=== PATIENT | male | born 1950 | race Caucasian/White ===

== ENCOUNTER 2020-03-31 20:10 | Inpatient (IN) | payer MEDICARE, SELFPAY ==
[2020-03-31 20:25] VITALS: BP 114/65; PULSE 70; RESP 20; O2SAT 100; BMI 34.5
--- NOTE | 2020-03-31 20:30 | XR_ITS ---
WS: [id number] Portable AP upright chest, 03/31/2020 Clinical Data: dyspnea Comparison: None. Findings: No nodules, masses or effusions are seen. The heart is enlarged. The pulmonary vascularity is not increased. No pneumonia or pneumothorax is seen. Diaphragms are flattened. There is a permanen t pacemaker with epicardial leads and intracardiac leads. Midline sternotomy sutures are present. The pacemaker generator is in the left axilla. XR/XR chest 1V portable [id number] Impression: Cardiomegaly and hyperinflation.
[2020-03-31 20:37] VITALS: BP 111/67; PULSE 70; RESP 16; TEMP 36.6; O2SAT 100
[2020-03-31 20:54] LABS: Basophils # 0.1 10^3/uL (0.0-0.1); Basophils % 0.8 %; Eosinophils # 0.1 10^3/uL (0.0-0.8); Eosinophils % 1.1 %; Hematocrit 21.4 % (42.0-52.0); Lymphocytes # 1.1 10^3/uL (0.8-4.8); Lymphocytes % 17.3 %; Mean Corpuscular HGB Conc 26.2 g/dL (30.0-36.0); Mean Corpuscular Hemoglobin 20.8 pg (28.0-34.0); Mean Corpuscular Volume 79.6 fL (80-94); Mean Platelet Volume 11.3 fL (7.4-10.4); Monocytes # 0.8 10^3/uL (0.2-0.9); Monocytes % 12.8 %; Neutrophils # 4.2 10^3/uL (1.8-7.7); Neutrophils % 67.8 %; Nucleated Red Blood Cells % 0.6 %; Platelet Count 272 10^3/cmm (130-400); Red Blood Count 2.69 10^6/uL (4.1-5.3); Red Cell Distribution Width 18.8 % (12.1-15.1); White Blood Count 6.2 10^3/uL (4.0-10.0)
--- NOTE | 2020-03-31 20:55 | W.ED.GIBLEED ---
HPI - GI Bleed General: Chief complaint: GI Bleed Stated complaint: possible gi bleed Time Seen by Provider: 03/31/20 20:24 History of Present Illness: HPI Narrative: This patient is a 69-year-old gentleman presenting to the ED with anemia. He recently moved to the area and was establishing care with Dr. Londono today. He had labs done which showed a hemoglobin of 5.6. He was instructed to come to the ED for blood transfusion. Symptomatically he has been complaining of increasing shortness of breath and increasing leg swelling for months probably according to his family. This has become more and more severe to the point where he can barely walk across the room. He has a very extensive cardiac history including a 5 way bypass in the late s. 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 He has ischemic cardiomyopathy, CHF, A. fib. He has had strokes and carotid endarterectomies. He has never had anemia like this before but has had blood transfusions related to his other surgeries. He is on torsemide as a diuretic as well as apixaban and aspirin for anticoagulation. He has also had his gallbladder removed. He is a diabetic. He reports that he has had some constipation this week but did have a bowel movement today. The bowel movement today was streaked with some bright red blood. He has not noted any other blood loss such as in urine or nosebleeds complaint: other (Bright red blood mixed with stool) Associated symptoms: Reports nausea; Denies easy bruising, fever(s), headache(s) or rash Review of Systems General: Reports: 10 or more systems reviewed and unremarkable except in HPI and below Const: Reports: fatigue; Denies: fever(s) Eyes: Denies: change in vision ENMT: Denies: odynophagia Card: Denies: chest pain or swelling of feet/ankles Resp: Reports: dyspnea GI: Reports: nausea, constipation and hematochezia : Denies: flank pain Musc: Denies: neck pain or back pain Skin/Breast: Denies: rash Neuro: Denies: headache(s), numbness in extremities or weakness in extremities Jigar/Lymph: Denies: easy bruising or easy bleeding PFS ED PFSH: Medical History Atrial fibrillation Bilateral carotid artery stenosis CAD (coronary artery disease) CHF (congestive heart failure) CVA (cerebral vascular accident) Diabetes Endocarditis Hypertension ICD (implantable cardioverter-defibrillator) in place Ischemic cardiomyopathy TIA (transient ischemic attack) Type 2 diabetes mellitus Surgical History H/O carotid endarterectomy Hx of aortic valve replacement Hx of CABG Family History Other CAD (coronary artery disease) Cancer Chronic kidney disease (CKD) Diabetes Family history of premature coronary artery disease Hyperlipidemia Hypertension Stroke Social History Smoking and tobacco status: former smoker Alcohol intake: current Alcohol intake frequency: holidays/special occasions only Desire information about substance/drug rehabilitation?: No Physical Exam Const: COMMON NORMALS: no acute distress, patient oriented x3, no limitations and alert GENERAL APPEARANCE: cooperative and comfortable HENMT: HEAD & SCALP: normal to inspection FACE & SINUS: normal facial exam Eye: GENERAL EYE: appearance normal, both eyes and all related structures Neck/C-Spine: COMMON NORMALS: supple, no meningeal signs and no JVD Chest: COMMONS NORMALS: normal inspection of the chest Resp: EFFORT & INSPECTION: Yes able to speak in complete sentences (Barely), Yes tachypneic and Yes uses accessory muscles AUSCULTATION: diminished lung sounds Cardio: COMMON NORMALS: no JVD, regular rate, regular rhythm and No murmurs present (Cardio) RATE: regular rate RHYTHM: regular rhythm GI: COMMON NORMALS: Normal to inspection, nondistended, normoactive bowel sounds present, Soft to palpation and non-tender INSPECTION: Yes normal to inspection AUSCULTATION: Yes normoactive bowel sounds PALPATION: Yes Soft to palpation Back/Pelvis: COMMON NORMALS: thoracic and lumbar spine normal to inspection Extremity: COMMON NORMALS: no pedal edema Neuro: COMMON NORMALS: patient oriented x3, moves all extremities, no focal motor deficits and no sensory deficits noted SENSORIUM/ORIENTATION: Yes alert MENINGEAL SIGNS: Yes no meningeal signs Psych: COMMON NORMALS: mental status grossly normal, cooperative and normal affect Skin: COMMON NORMALS: no rashes or lesions noted and turgor normal NARRATIVE SKIN EXAM: Sallow skin tone GENERAL SKIN EXAM: no rashes or lesions noted and turgor normal Course Consultations: Consultation #1: Dr. Reyes will admit for blood transfusion and further evaluation and monitoring Vital Signs: Vital signs: Vital Signs Temperature 97.9 F 03/31/20 20:37 Pulse Rate 87 03/31/20 22:12 Respiratory Rate 18 03/31/20 22:12 Blood Pressure 101/45 03/31/20 22:12 Pulse Oximetry 98 03/31/20 22:12 MDM - GI Bleed MDM Narrative: Medical decision making narrative: Complicated patient with an extensive medical history. Labs done today showed severe anemia which is even more concerning with his cardiac history. He is quite symptomatic with this. He also has some heart failure and some renal insufficiency. He will require transfusions and close monitoring of his volume status. Lab Data: Labs: Lab Results 03/31/20 03/31/20 03/31/20 Range/Units 20:45 20:45 20:45 WBC 6.2 (4.0-10.0) 10^3/ uL RBC 2.69 L (4.1-5.3) 10^6/u L Hgb 5.6 L* (11.7-16.6) g/dL Hct 21.4 L (42.0-52.0) % MCV 79.6 L (80-94) fL MCH 20.8 L (28.0-34.0) pg MCHC 26.2 L (30.0-36.0) g/dL RDW 18.8 H (12.1-15.1) % Plt Count 272 (130-400) 10^3/c mm MPV 11.3 H (7.4-10.4) fL Neut % (Auto) 67.8 % Lymph % (Auto) 17.3 % Linn % (Auto) 12.8 % Eos % (Auto) 1.1 % Baso % (Auto) 0.8 % Neut # (Auto) 4.2 (1.8-7.7) 10^3/u L Lymph # (Auto) 1.1 (0.8-4.8) 10^3/u L Linn # (Auto) 0.8 (0.2-0.9) 10^3/u L Eos # (Auto) 0.1 (0.0-0.8) 10^3/u L Baso # (Auto) 0.1 (0.0-0.1) 10^3/u L Nucleated RBC % (a uto) 0.6 % Nucleated RBCs # 0.0 /100WBC PT (10.5-13.3) SECO NDS INR (0.8-1.2) APTT (23.9-36.7) SECO NDS Sodium 134 L (136-145) mmol/L Potassium 4.5 (3.5-5.1) mmol/L Chloride 98 (98-107) mmol/L Carbon Dioxide 22 (22-29) mmol/L Anion Gap 18.5 (5-19) BUN 36 H (8-23) mg/dL Creatinine 1.9 H (0.7-1.2) mg/dL GFR Calculation 35.5 L (90-130) mL/min Glucose 165 H (65-115) mg/dL Calculated Osmolal ity 279 L (285-295) mOsm/k g Lactate 2.5 H (0.5-2.2) mmol/L Calcium 9.1 (8.5-10.5) mg/dL Total Bilirubin 0.7 (0.15-1.2) mg/dL AST 44 H (0-40) U/L ALT 50 H (0-41) U/L Alkaline Phosphata se 122 (40-130) IU/L Troponin T Baselin e (0-15) ng/L NT-Pro-B Natriuret Pep 4609 H (0-125) pg/mL Total Protein 7.0 (6.6-8.7) g/dL Albumin 4.2 (3.5-5.2) g/dL Globulin 2.8 (1.3-4.6) g/dL Lipase 83 H (13-60) U/L Blood Type Rho(D) Type Antibody Screen Crossmatch 03/31/20 03/31/20 03/31/20 Range/Units 20:45 20:45 20:45 WBC (4.0-10.0) 10^3/ uL RBC (4.1-5.3) 10^6/u L Hgb (11.7-16.6) g/dL Hct (42.0-52.0) % MCV (80-94) fL MCH (28.0-34.0) pg MCHC (30.0-36.0) g/dL RDW (12.1-15.1) % Plt Count (130-400) 10^3/c mm MPV (7.4-10.4) fL Neut % (Auto) % Lymph % (Auto) % Linn % (Auto) % Eos % (Auto) % Baso % (Auto) % Neut # (Auto) (1.8-7.7) 10^3/u L Lymph # (Auto) (0.8-4.8) 10^3/u L Linn # (Auto) (0.2-0.9) 10^3/u L Eos # (Auto) (0.0-0.8) 10^3/u L Baso # (Auto) (0.0-0.1) 10^3/u L Nucleated RBC % (a uto) % Nucleated RBCs # /100WBC PT 23.80 H (10.5-13.3) SECO NDS INR 2.10 H (0.8-1.2) APTT 51.3 H (23.9-36.7) SECO NDS Sodium (136-145) mmol/L Potassium (3.5-5.1) mmol/L Chloride (98-107) mmol/L Carbon Dioxide (22-29) mmol/L Anion Gap (5-19) BUN (8-23) mg/dL Creatinine (0.7-1.2) mg/dL GFR Calculation (90-130) mL/min Glucose (65-115) mg/dL Calculated Osmolal ity (285-295) mOsm/k g Lactate (0.5-2.2) mmol/L Calcium (8.5-10.5) mg/dL Total Bilirubin (0.15-1.2) mg/dL AST (0-40) U/L ALT (0-41) U/L Alkaline Phosphata se (40-130) IU/L Troponin T Baselin e 46 H (0-15) ng/L NT-Pro-B Natriuret Pep (0-125) pg/mL Total Protein (6.6-8.7) g/dL Albumin (3.5-5.2) g/dL Globulin (1.3-4.6) g/dL Lipase (13-60) U/L Blood Type A Negative Rho(D) Type Negative Antibody Screen Negative Crossmatch See Detail EKG Data^: EKG 1: EKG interpretation date: 03/31/20 EKG interpretation time: 21:12 Interpretation: Ventricular rate of 69, ventricular paced. No P waves. Wide-complex consistent with ventricular pacing Discharge Plan Discharge Patient Disposition: Admitted As Inpatient Admit Provider: Dereje Reyes Clinical Impression: Severe anemia, Acute dyspnea Condition: Stable Discharge Date/Time: 03/31/20 22:18 Coding Level of Care Code ED Supervisor [employer] Workers for Chg Fwd Exam Comprehensive
[2020-03-31 21:08] LABS: Lactate (Lactic Acid level) 2.5 mmol/L (0.5-2.2)
[2020-03-31 21:11] LABS: Troponin(5th) Baseline 46 ng/L (0-15)
[2020-03-31 21:19] LABS: Alanine Aminotransferase 50 U/L (0-41); Albumin Level 4.2 g/dL (3.5-5.2); Alkaline Phosphatase 122 IU/L (40-130); Anion Gap 18.5 (5-19); Aspartate Amino Transferase 44 U/L (0-40); Blood Urea Nitrogen 36 mg/dL (8-23); Calcium 9.1 mg/dL (8.5-10.5); Carbon Dioxide 22 mmol/L (22-29); Chloride 98 mmol/L (98-107); Globulin 2.8 g/dL (1.3-4.6); Glomerular Filtration Rate 35.5 mL/min (90-130); Glucose 165 mg/dL (65-115); Lipase 83 U/L (13-60); NT Pro B Type Natriuretic Pept 4609 pg/mL (0-125); Osmolality Calculated 279 mOsm/kg (285-295); Potassium 4.5 mmol/L (3.5-5.1); Sodium 134 mmol/L (136-145); Total Bilirubin 0.7 mg/dL (0.15-1.2)
--- NOTE | 2020-03-31 21:38 | CTR_ITS ---
PROCEDURE INFORMATION: Exam: CT Abdomen And Pelvis Without Contrast Exam date and time: 03/31/2020 10:17 PM Age: 69 years old Clinical indication: Abdominal pain; Prior surgery; Surgery type: Gb, cabg, valve, RT hip; Additional info: Concern for colitis TECHNIQUE: Imaging protocol: Computed tomography of the abdomen and pelvis without contrast. Radiation optimization: All CT scans at this facility use at least one of these dose optimization techniques: automated exposure control; mA and/or kV adjustment per patient size (includes targeted exams where dose is matched to clinical indication); or iterative reconstruction. COMPARISON: No relevant prior studies available. RADIATION DOSE METRICS: Total DLP: 1739.38 mGy-cm FINDINGS: Lungs: Bibasilar atelectasis Pleural space: Moderate bilateral pleural effusions. Liver: Normal. No mass. Gallbladder and bile ducts: Normal. No calcified stones. No ductal dilation. Pancreas: Normal. No ductal dilation. Spleen: Normal. No splenomegaly. Adrenals: Normal. No mass. Kidneys and ureters: Normal. No hydronephrosis. Stomach and bowel: Diverticulosis without diverticulitis. Appendix: No evidence of appendicitis. Intraperitoneal space: Unremarkable. No free air. No significant fluid collection. Vasculature: Unremarkable. No abdominal aortic aneurysm. Lymph nodes: Unremarkable. No enlarged lymph nodes. Bladder: Unremarkable as visualized. Reproductive: Unremarkable as visualized. Bones/joints: Sternotomy wires. Soft tissues: Unremarkable. CT/CT abdomen pelvis wo con [id number] IMPRESSION: 1. Negative for acute inflammatory process 2. Moderate bilateral pleural effusions. 3. Bibasilar atelectasis 4. Sternotomy wires. 5. Diverticulosis without diverticulitis. Radiation Dose CTDIVOL = (mGy): DLP = 1739.38 (mGy-cm)
--- NOTE | 2020-03-31 21:45 | PM.HP ---
Providers/Chief Complaint Chief Complaint: possible gi bleed History of Present Illness Abhay Varghese is a 69 year old male with complex cardiac history with A. 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 Patient has established care with Dr. Londono after moving to [place] from [facility]. He has seen Dr. Londono for worsening shortness of breath, he was asked to increase his torsemide for 40 mg twice a day to 100 mg once a day. Patient is stating that he has been experiencing orthopnea, PND shortness of breath on mild exertion, he gets winded very easily is walking from one room to another. He has been leading a sedentary lifestyle. At baseline he has been experiencing constipation, for last 1 to 2 months he has been experiencing bright bleed per rectum as well, he has not notified any physician and kept taking his Eliquis and aspirin. Today when Dr. Londono's clinic fam labs it showed hemoglobin of 5.6 and asked him to come to the ED for further evaluation. Patient is stating that almost with every bowel movement he has been noticing bright bleed per rectum, his previous colonoscopy revealed some polyps without any diverticulosis or hemorrhoids. Diagnostics in the ER revealed hemoglobin 5.6 microcytic, Hemodynamically stable Coagulopathy VEE Lactic 2.[address] abdomen obtained to rule out colitis, it revealed diverticulosis, bilateral pleural effusion Review of Systems Const: Reports: chills, body aches, change in appetite and fatigue; Denies: fever(s) Eyes: Denies: change in vision ENMT: Denies: throat pain Card: Reports: swelling of feet/ankles, dyspnea on exertion and orthopnea; Denies: chest pain Resp: Reports: dyspnea GI: Reports: abdominal pain and nausea; Denies: vomiting : Denies: flank pain Musc: Denies: neck pain Skin/Breast: Reports: new lesions (Multiple precancerous lesion around his forehead, nasolabial fold, nose) and lesions Neuro: Denies: headache(s) Psych: Denies: anxiety Endo: Denies: polyuria Jigar/Lymph: Denies: easy bruising All/Imm: Denies: urticaria Medications/Allergies Home Medications Medication Instructions Recorded Confirmed Last Taken Type apixaban 5 mg tablet 5 mg PO BID 03/31/20 03/31/20 03/31/20 History aspirin 81 mg tablet,delayed 81 mg PO DAILY 03/31/20 03/31/20 03/31/20 History release carvedilol 12.5 mg tablet 12.5 mg PO BID 03/31/20 03/31/20 03/31/20 History duloxetine 30 mg capsule,delayed 60 mg PO DAILY cap 03/31/20 03/31/20 03/31/20 History release empagliflozin 10 mg tablet 10 mg PO DAILY 30 Days #30 tab 03/31/20 03/31/20 Unknown Rx escitalopram oxalate 10 mg PO DAILY 03/31/20 03/31/20 03/31/20 History metformin 1,000 mg tablet 1,000 mg PO BID 03/31/20 03/31/20 03/31/20 History pantoprazole 40 mg tablet,delayed 40 mg PO DAILY 03/31/20 03/31/20 03/31/20 History release rosuvastatin 20 mg tablet 20 mg PO DAILY 03/31/20 03/31/20 03/31/20 History sacubitril 24 mg-valsartan 26 mg 1 tab PO BID 03/31/20 03/31/20 03/31/20 History tablet torsemide 100 mg tablet 100 mg PO DAILY #90 tab 03/31/20 03/31/20 03/31/20 Rx tramadol 37.5 mg-acetaminophen 325 1 tab PO BID PRN 03/31/20 03/31/20 03/31/20 History mg tablet Allergies Allergy/AdvReac Type Severity Reaction Status Date / Time No Known Allergies Allergy Unverified 03/31/20 14:13 PFSH Acute PFSH: Medical History Atrial fibrillation Bilateral carotid artery stenosis CAD (coronary artery disease) CHF (congestive heart failure) CVA (cerebral vascular accident) Diabetes Endocarditis Hypertension ICD (implantable cardioverter-defibrillator) in place Ischemic cardiomyopathy TIA (transient ischemic attack) Type 2 diabetes mellitus Surgical History H/O carotid endarterectomy Hx of aortic valve replacement Hx of CABG Family History Other CAD (coronary artery disease) Cancer Chronic kidney disease (CKD) Diabetes Family history of premature coronary artery disease Hyperlipidemia Hypertension Stroke Social History (Updated 04/01/20 @ 00:22 by Dereje Reyes MD) Smoking and tobacco status: former smoker Alcohol intake: current Alcohol intake frequency: holidays/special occasions only Desire information about substance/drug rehabilitation?: No Housing: House Vitals/I&O/Wt Last Vital Signs Temp 97.9 F 03/31/20 20:37 Pulse 70 03/31/20 20:37 Resp 16 03/31/20 20:37 BP 111/67 03/31/20 20:37 Pulse Ox 100 03/31/20 20:37 Weight last 48 hrs Weight 118.841 kg Physical Exam Narrative: EXAM NARRATIVE: Head to toe examination Elderly male wearing facemask lying comfortable in his bed Saturating well on room Patient has multiple precancerous lesion on his forehead, nose and sun exposed areas No active distress S1, S2 variable Signs of heart failure present Bilateral breath sounds without adventitious sounds diminished breath sounds at the bases Abdomen soft, distended, nontender, bowel sound present, visceral obesity Neurologically nonfocal Lower extremity no signs of edema gangrene ulcer Appropriate mood and affect EOMI, PERRLA Multiple macular rash on his trunk Data : 03/31/20 20:45 03/31/20 20:45 A&P Assessment and plan (1) Severe anemia: Bright bleed per rectum mostly after bowel movements, chronic history of constipation, CT abdomen revealed diverticulosis Hemodynamically stable Blood transfusion I believe etiology is diverticular bleed Would hold Eliquis and aspirin for now, patient is very anxious about holding anticoagulation because of his cardiac history, he does not want to get any scopes during this visit and would like to schedule it electively He is stating that his previous colonoscopy revealed some polyps but no hemorrhoids or malignant lesions identified If he is bleeding profusely recommendations are to stop anticoagulation for at least 3 to 4 weeks but with diverticular bleed if his hemoglobin stays stable we might be able to start anticoagulation earlier Status: Acute (2) Diverticula of colon: CT abdomen reveals diverticular colon which is most likely the source of bleeding No signs of diverticulitis Would use laxative for his chronic constipation and check TSH No signs of ischemic colitis, high lactic acid is secondary to hypo-volemia due to anemia Status: Acute (3) Acute dyspnea: Due to anemia with underlying CHF Anticipating improvement after blood transfusion and use of Lasix Status: Acute (4) CHF exacerbation: I believe CHF exacerbation is due to anemia Target hemoglobin is 8 for him due to cardiac history Would use Lasix in between blood transfusions I would continue his torsemide 100 mg a day Status: Acute (5) Acute kidney injury: Secondary to CHF exacerbation Anticipating improvement with diuresis He is not hypotensive I would hold his Entresto for now along metformin In my opinion he should not be on metformin that he has risk of worsening chronic kidney disease Status: Acute (6) Microcytic anemia: We will check iron study Status: Acute Additional A&P Information DVT prophylaxis: SCDs, holding Eliquis and aspirin which she has been using for A. fib and severe coronary disease 3 open heart surgeries, CABG 5 vessel, aortic valve replaced, AICD: No active chest pain, EKG showing paced rhythm, delta troponin not significant which I think is due to acute kidney injury N.p.o. Left vertebral artery CVA history no active residual weakness Patient does not want any investigational endoscopies during the stay and would like to schedule it electively, anticoagulation and aspirin on hold, we might need to discuss his case with Dr. Londono for close follow-up and reinitiating anticoagulation at the right time. Would give him bowel regimen to avoid recurrent constipation. Attestations Medical Necessity Statement*: Anticipating discharge in less than 48 hours currently needs blood transfusion for severe anemia causing CHF exacerbation Time Spent in Patient Care: (>than 50% of time spent in counselling and/or direct pt care on unit). 60mins Coding Level of Care Code Acute Corrections Caseworker for Chg Fwd Diagnoses Severe anemia D64.9 Diverticula of colon K57.30 Acute dyspnea R06.00 CHF exacerbation I50.9 Acute kidney injury N17.9 Microcytic anemia D50.9
[2020-03-31 22:11] LABS: Partial Thromboplastin Time 51.3 SECONDS (23.9-36.7)
[2020-03-31 22:12] VITALS: BP 101/45; PULSE 87; RESP 18; O2SAT 98
[2020-03-31 22:12] LABS: Hemoglobin 5.6 g/dL (11.7-16.6)
[2020-03-31 22:30] VITALS: BP 113/54; PULSE 71; RESP 18; TEMP 36.6; O2SAT 100
--- NOTE | 2020-03-31 22:30 | ECG_ITS ---
Measurements Intervals Gap Rate: 69 P: VT: 0 QRS: 164 QRSD: 150 T: -29 QT: 447 QTc: 482 ELECTRONIC VENTRICULAR PACEMAKER ABNORMAL RHYTHM ECG No previous ECG available for comparison Electronically Signed On 04-01-2020 7:01:24 CDT by Hayder Karimi M.D. [email or web address]
[2020-03-31 22:54] LABS: Troponin 5 2HR 47.04 ng/L (0-15); Troponin 5 2HR Delta 1.04 ABS# (0-10)
[2020-03-31 23:44] LABS: Add Urine Microscopic? NO
[2020-03-31 23:55] LABS: Bilirubin Urine Neg (NEGATIVE); Blood Urine Neg (Negative); Glucose Urine UA Norm (Normal); Ketones Urine Negative (Negative); Leukocyte Esterase Urine Negative (Negative); Nitrate Urine Negative (Negative); Protein Urine Neg (Negative); Urine Appearance Clear (CLEAR); Urine Color Yellow (Yellow); Urobilinogen Urine Norm (Negative); pH Urine 5 (5-7)
[2020-04-01] VITALS (19 sets, daily range): BP systolic 107–143; BP diastolic 57–87; PULSE 69–104; RESP 9–25; TEMP 35.7–36.9; O2SAT 93–99
[2020-04-01] MEDS: sodium chloride 0.9% (100 ml) 100 ML 50 ML (00:47)
[2020-04-01 02:27] LABS: Ferritin 8 ng/mL (30-400); Iron 14 ug/dL (59-158)
--- NOTE | 2020-04-01 02:30 | ECG_ITS ---
Measurements Intervals [place] Rate: 69 P: -42 LA: 142 QRS: 172 QRSD: 153 T: -15 QT: 441 QTc: 476 ELECTRONIC VENTRICULAR PACEMAKER ABNORMAL RHYTHM ECG No previous ECG available for comparison Electronically Signed On 04-01-2020 7:02:59 CDT by Hayder Karimi M.D. [email or web address]
[2020-04-01 03:06] LABS: Anion Gap 18.8 (5-19); Blood Urea Nitrogen 32 mg/dL (8-23); Calcium 9.9 mg/dL (8.5-10.5); Carbon Dioxide 22 mmol/L (22-29); Chloride 100 mmol/L (98-107); Glomerular Filtration Rate 35.5 mL/min (90-130); Glucose 149 mg/dL (65-115); Osmolality Calculated 282 mOsm/kg (285-295); Potassium 4.8 mmol/L (3.5-5.1); Sodium 136 mmol/L (136-145); Troponin 5 6HR 46.38 ng/L (0-15); Troponin 5 6HR Delta 0.38 ng/L (0-12)
[2020-04-01 03:07] LABS: Lactic Acid level (Lactate) 1.5 mmol/L (0.5-2.2)
[2020-04-01] MEDS: FUROsemide 10 mg/mL SDV 4mL 20 MG IVP (04:42)
--- NOTE | 2020-04-01 09:19 | USCV_ITS ---
Abhay Varghese Age: 69 Gender: M : 1950 Exam Date: 04/01/2020 14:45 Ordering Phys: Marlys Castellanos MD Technologist: Vivian Sears [place] [facility] [place] Indication: AVR BP: 137 / 78 HR: 76 Rhythm: Sinus Technical Quality: Adequate MEASUREMENTS (Male / Female) Normal Values 2D ECHO LV Diastolic Diameter PLAX 6.3 cm 4.2 - 5.9 / 3.9 - 5.3 cm LV Systolic Diameter PLAX 5.4 cm LV Chamber Size 3.4 cm IVS Diastolic Thickness 1.4 cm 0.6 - 1.0 / 0.6 - 0.9 cm IVS Systolic Thickness 1.6 cm LVPW Diastolic Thickness 1.9 cm 0.6 - 1.0 / 0.6 - 0.9 cm LVPW Systolic Thickness 1.7 cm RV Chamber Size 4.6 cm LVOT Diameter 2.0 cm LV Ejection Fraction 2D Teich 29.1 % LV Ejection Fraction MOD 2C 35.7 % LV Ejection Fraction 2C AL 36.5 % LA Diameter 4.8 cm LA Width 4.3 cm LA Height 5.8 cm RA Width 5.0 cm RA Height 5.0 cm Aorta at Sinotubular Diameter 2.7 cm M-MODE LV Diastolic Diameter MM 8.0 cm 4.2 - 5.9 / 3.9 - 5.3 cm LV Systolic Diameter MM 7.2 cm LV Ejection Fraction MM Teich 22.4 % IVS Diastolic Thickness MM 0.7 cm 0.6 - 1.0 / 0.6 - 0.9 cm IVS Systolic Thickness MM 0.7 cm LVPW Diastolic Thickness MM 0.9 cm 0.6 - 1.0 / 0.6 - 0.9 cm LVPW Systolic Thickness MM 1.1 cm Aortic Annulus Diameter 3.5 cm LA Ao Ratio MM 1.4 MV E Point Septal Separation 1.5 cm DOPPLER AV Peak Velocity 104.0 cm/s LVOT Peak Velocity 90.0 cm/s AV Area Cont Eq vti 4.0 cm squared AV Area Cont Eq pk 2.8 cm squared MV Area PHT 5.1 cm squared Mitral E to A Ratio 6.1 MV E' Velocity 9.0 cm/s Mitral E to MV E' Ratio 18.1 Mitral E to LV E' Lateral Ratio 14.2 Mitral E to LV E' Septal Ratio 25.3 TR Peak Velocity 328.5 cm/s TR Peak Gradient 14.5 mmHg TR Mean Velocity 212.1 cm/s TR Mean Gradient 21.3 mmHg TR Velocity Time Integral 103.4 cm TV Peak E Velocity 80.0 cm/s Right Atrial Pressure 3.0 mmHg Pulmonary Artery Systolic Pressu 46.2 mmHg PV Peak Velocity 72.0 cm/s RV Acceleration Time 0.1 s RV Ejection Time 0.3 s RV AcT/ET 0.2 FINDINGS Left Ventricle Midly dilated left ventricle with diminished ejection fraction of 30 to 35%. Diffuse hypokinesia of the left ventricle. Right Ventricle Mildly increased right ventricular size. Mildly decreased right ventricular systolic function. Pacemaker/ICD wire in the right ventricle Right Atrium Mildly increased right atrial size. Pacemaker wires in the right atrium Left Atrium Mildly increased left atrial size. Mitral Valve Mild mitral valve regurgitation. Aortic Valve Trace aortic valve regurgitation. Tricuspid Valve Trace tricuspid valve regurgitation. Estimated pulmonary artery peak systolic pressure of 46 mmHg Pulmonic Valve Not visualized well Pericardium Dilated inferior vena cava with a diameter of 2.7 cm Aorta Normal aortic annulus size. CONCLUSIONS Dilated left ventricle with diminished ejection fraction of 30 to 35%. Diffuse hypokinesia of the left ventricle. Mildly increased right ventricular size. Mildly decreased right ventricular systolic function. Pacemaker/ICD wire in the right ventricle. Mild biatrial enlargement Mild mitral with trace of aortic and tricuspid regurgitation Mild pulmonary hypertension with an estimated pulmonary artery peak systolic pressure of 46 mmHg ICD/pacemaker wire in the right atrium and right ventricle No significant pericardial effusion. No similar previous studies are available for comparison Dr Sascha Londono MD [facility] (Electronically Signed) Final Date: 01 April 2020 18:10 S
[2020-04-01 09:35] LABS: Basophils # 0.1 10^3/uL (0.0-0.1); Basophils % 1.2 %; Eosinophils # 0.1 10^3/uL (0.0-0.8); Eosinophils % 1.5 %; Hematocrit 23.8 % (42.0-52.0); Lymphocytes # 0.8 10^3/uL (0.8-4.8); Lymphocytes % 13.8 %; Mean Corpuscular HGB Conc 28.2 g/dL (30.0-36.0); Mean Corpuscular Hemoglobin 22.6 pg (28.0-34.0); Mean Corpuscular Volume 80.4 fL (80-94); Mean Platelet Volume 11.1 fL (7.4-10.4); Monocytes # 0.7 10^3/uL (0.2-0.9); Monocytes % 11.7 %; Neutrophils # 4.4 10^3/uL (1.8-7.7); Neutrophils % 71.6 %; Nucleated Red Blood Cells % 0.5 %; Platelet Count 247 10^3/cmm (130-400); Red Blood Count 2.96 10^6/uL (4.1-5.3); Red Cell Distribution Width 19.2 % (12.1-15.1); White Blood Count 6.1 10^3/uL (4.0-10.0)
--- NOTE | 2020-04-01 09:37 | PC.CHAP ---
Pastoral Care Encounter/Spiritual Assessment Type of Contact [] Declined machine bunch maker visit [] Patient/Family/Request visit [] Outpatient visit [] Follow-up visit [] Physician referral [] Code/Alert [x] Routine visit [] Staff referral [] Actively dying [] Patient sleeping [] Family support [] [] Out of room [] Palliative care [] [] Receiving care in room [] Pre-surgical visit [] Trauma [] Long length of stay [] ICU visit [] Other: Relational/Emotional Strength [] Patient feels connected with others/family/visitors/staff [] Distress [] Loneliness/isolation [] Abandonment Spirituality of Patient [] Person of Maggy [] Attends Amish of their Maggy [] Believes in Prayer [] Reads Bible or Yazdanism materials [] There are Spiritual issues to be addressed Scholarship Counselor Interventions [x] Prayer [] Active listening [] Non-anxious presence [] Spiritual/emotional support [] Crisis/trauma care [] Spiritual counseling [] Bereavement support [] Provided bereavement packet [] Provided Bible/devotional materials [] Provided toy/stuffed animal, coloring book to patient or family member [] Provided Communion [] Anointing/[place] [] Salvation [x] Completed spiritual assessment [] Other: Impact on Illness or Injury [] Angry [] Fearful [] Anxious [] Often cries [] Exhaustion [] Unable to work [] Unable to attend buddhist [] Unable to walk/stand [] Unable to read [] Unable to drive [] Unable to eat/drink [] Unable to sleep [] Unable to be with family [] Patient intubated [] Other: Summary Patient resting well. Time spent with patient 5 min
[2020-04-01 09:58] LABS: Hemoglobin 6.7 g/dL (11.7-16.6)
[2020-04-01] MEDS: duloxetine 30 mg Capsule 60 MG PO (10:00)
[2020-04-01] MEDS: carvedilol 12.5 mg Tablet PO ×2 (10:00→17:42)
[2020-04-01] MEDS: TORSEmide 20 mg Tablet 100 MG PO (10:00)
[2020-04-01] MEDS: atorvastatin 40 mg Tablet 80 MG PO (10:00)
[2020-04-01] MEDS: pantoprazole 40 mg SDV IVP ×2 (10:01→17:48)
--- NOTE | 2020-04-01 10:08 | PC.NURSE ---
medication rounding delayed due to patient cares
--- NOTE | 2020-04-01 10:17 | PM.PN ---
Subjective Subjective: Interval history: Patient seen after second unit of blood. Hemoglobin is up to 6.7. Renal function is about the same. He is not sure what his baseline renal function is. He is starting to feel a little bit better in the last 30 minutes or so. Not quite as short of breath. He has had Lasix after each unit of blood. Swelling is down a little bit in his lower extremities. He has not had any blood transfusions since he had his heart surgery a few years ago. Cannot recall when he last had any blood work checked or if he has chronic anemia. Iron is low consistent with iron deficiency. Recent bowel movement this morning with no blood noted by his report. Echo has been ordered. I discussed the case with Dr. Londono who is agreed to see him in consultation. Vitals/I&O/Wt Last Vital Signs Temp 97.9 F 04/01/20 07:53 Pulse 71 04/01/20 07:53 Resp 15 04/01/20 07:53 BP 130/69 04/01/20 07:53 Pulse Ox 96 04/01/20 07:53 03/31/20 04/01/20 04/01/20 22:59 06:59 14:59 Intake Total 500 / 500 810 / 810 Output Total 650 / 650 Balance -150 / -150 810 / 810 Weight last 48 hrs Weight 118.841 kg Physical Exam Const: OTHER: Alert, oriented x3, cooperative HENMT: OTHER: Normocephalic atraumatic, pale mucosa Eye: OTHER: Pupils equally round and reactive to light Neck/C-Spine: OTHER: Supple Resp: OTHER: No rales or wheezes noted presently. Patient does have some tachypnea and has to pause at times while talking Cardio: OTHER: Regular GI: OTHER: Abdomen soft, nontender : OTHER: Deferred Extremity: NARRATIVE EXTREMITY EXAM: 2+ edema Neuro: OTHER: Face symmetric, speech clear, moves all extremities Psych: OTHER: Normal affect Skin: OTHER: Chronic stasis changes Data : 04/01/20 17:35 04/01/20 02:35 A&P Assessment and plan (1) Severe anemia: Symptomatic, iron deficiency with reported intermittent GI losses with bright red blood. I suspect he has had a slow drop in his hemoglobin and that there is a chronic component to this in addition to possible acute process. Whether that is from chronic disease, GI losses or other process unclear at this point in time. Concerning factors that he is on chronic anticoagulation. Has already received 2 units of blood with hemoglobin up to 6.7. Status: Acute (2) Diverticula of colon: Suspected diverticular bleed at admission for ongoing bright red blood per rectum on the floor thus far Status: Acute (3) Chronic anticoagulation: With Eliquis which is now held Status: Acute (4) Acute kidney injury: Versus chronic kidney disease. Baseline renal function is unknown. Status: Acute (5) CHF (congestive heart failure): Ejection fraction around 30%. He is normally on Entresto which is been held due to renal function presently. Chronically managed with torsemide. Status: Acute Qualifiers: Heart failure chronicity: chronic Heart failure type: systolic Qualified Code(s): I50.22 - Chronic systolic (congestive) heart failure (6) CAD (coronary artery disease): With prior bypass surgery. Chronically on aspirin, carvedilol and statin Status: Acute Qualifiers: Associated angina: without angina Coronary Disease-Associated Artery/Lesion type: [place] artery [place] vs. transplanted heart: [place] heart Qualified Code(s): I25.10 - Atherosclerotic heart disease of [place] coronary artery without angina pectoris (7) Type 2 diabetes mellitus: Chronically on metformin and was started on Jardiance I believe recently. A1c 6.30 March 2020 Status: Acute Qualifiers: Diabetes mellitus complication status: with hyperglycemia Diabetes mellitus termite inspector insulin use: with termite inspector use Qualified Code(s): E11.65 - Type 2 diabetes mellitus with hyperglycemia; Z79.4 - shelter (current) use of insulin (8) Hx of aortic valve replacement: With aortic root replacement. Suspected to be bioprosthetic but not confirmed at this point in time. Status: Acute (9) Atrial fibrillation: Chronic Status: Acute Qualifiers: Atrial fibrillation type: permanent Qualified Code(s): I48.21 - Permanent atrial fibrillation (10) CVA (cerebral vascular accident): Around the time of 1 of his prior heart surgeries. Has had carotid endarterectomy. Previously involved left MCA. Minor residual visual field changes. Patient is fearful of having another stroke, especially if he has to come off of anticoagulation. Status: Acute Qualifiers: CVA mechanism: embolism Laterality of affected vessel: right Precerebral and cerebral artery: middle cerebral artery Qualified Code(s): I63.411 - Cerebral infarction due to embolism of right middle cerebral artery (11) Hypertension: Presently controlled Status: Acute Qualifiers: Hypertension type: unspecified Qualified Code(s): I10 - Essential (primary) hypertension (12) Dyslipidemia: Chronically on statin Status: Acute Additional A&P Information Mild transaminase elevation Mild lipase elevation Elevated troponin at baseline without significant delta Normal TSH Transfuse an additional unit of blood Continue Lasix after each unit of blood I have asked Dr. Londono to consult to assist with anticoagulation question as well as chronic cardiac medications. In light of renal function need to make decision about Entresto. Will request more recent old records to see if we get an idea, Dr. Londono may have these. Was able to find records from 2018 that showed a hemoglobin of 7.9 after transfusion and BUN and creatinine around 15/1.0. This was around time of last surgery however. Add sliding scale insulin for diabetes coverage in the interim Regular diet We will need consideration for endoscopy at some point in time but does not wish to pursue presently PPI Discussed with patient holding anticoagulation. He is very fearful of having a stroke which is understandable. He has been taking regularly for some time. Echocardiogram has been ordered Monitor renal function and clinical response to treatment Telemetry monitoring Other home medications as ordered Will contact Maria R who can be reached at [phone] and update her on situation. She is in [place]. Supportive care otherwise Attestations Medical Necessity Statement*: Patient stable now crossed 2 midnights. I have changed him to inpatient status. He did not come up as much as expected after 2 units of blood despite having diuresis. Several medications are also held due to renal function. We do not have records of prior renal function was. Requires close monitoring to ensure stability prior to disposition home. Coding Level of Care Code Acute Frame Aligner for [facility] Fwd Diagnoses Severe anemia D64.9 Diverticula of colon K57.30 Chronic anticoagulation Z79.01 Acute kidney injury N17.9 CHF (congestive heart failure) I50.22 Heart failure chronicity: chronic Heart failure type: systolic CAD (coronary artery disease) I25.10 Associated angina: without angina Coronary Disease-Associated Artery/Lesion type: [place] artery [place] vs. transplanted heart: [place] heart Type 2 diabetes mellitus E11.65; Z79.4 Diabetes mellitus complication status: with hyperglycemia Diabetes mellitus termite inspector insulin use: with termite inspector use Hx of aortic valve replacement Z95.2 Atrial fibrillation I48.21 Atrial fibrillation type: permanent CVA (cerebral vascular accident) I63.411 CVA mechanism: embolism Laterality of affected vessel: right Precerebral and cerebral artery: middle cerebral artery Hypertension I10 Hypertension type: unspecified Dyslipidemia E78.5
[2020-04-01 11:21] LABS: Glucose Point of Care 208 mg/dL (70-110)
[2020-04-01] MEDS: sennosides-docusate Tablet 1 TAB PO (12:16)
[2020-04-01 12:40] LABS: ABG PCO2 34.2 mmHg (35-45); ABG PH Result 7.42 (7.35-7.45); Arterial Blood Gas Hematocrit 17.1 % (42-52); Base Excess ABG -2.1 mmol/L (-2.0-2.0); Blood Gas Sample Site Brachial, right; Blood Gas Sample Type Arterial; HCO3 ABG 22.2 mmol/L (22-26); Oxygen Device ROOM AIR; PO2 ABG 91.2 mmHg (80.0-100.0)
[2020-04-01] MEDS: sodium chloride 0.9% (100 ml) 100 ML (12:54)
--- NOTE | 2020-04-01 16:27 | PC.NURSE ---
HH ordered post blood transfusion at this time per instructions in a nurse order per Dr. Castellanos
[2020-04-01 16:31] LABS: Glucose Point of Care 182 mg/dL (70-110)
[2020-04-01] MEDS: FUROsemide 10 mg/mL SDV 2mL 20 MG IVP (17:42)
[2020-04-01 18:03] LABS: Hemoglobin 7.4 g/dL (11.7-16.6)
--- NOTE | 2020-04-01 18:17 | PC.NURSE ---
patient had 1 unit of blood this shift with no adverse reactions patient tolerated well patient has rested in bed or on side of bed this shift no complaints of pain or discomfort
--- NOTE | 2020-04-01 19:08 | PC.NURSE ---
Received bedside report from Adenike Ramirez RN. Patient resting in bed lying left lateral position. Discussed output s/p lasix administration. Patient reports having quite a bit out. Discussed plan of care. Patient verbalized understanding.
--- NOTE | 2020-04-01 19:27 | P.CONIM_ITS ---
Providers/Reason For Consult Consulting Physican/Specialty*: Ha Londono MD/cardiology Reason for Consult*: Patient with a history of cardiomyopathy, atrial fibrillation, ICD implantation, atherosclerotic heart disease, multiple open heart surgeries, is admitted to hospital with severe anemia/possible GI bleed. He is on long-term oral anticoagulation. Consult is requested mainly for the management of his cardiovascular conditions. Attending Physician: Marlys Castellanos MD History of Present Illness History of Present Illness Abhay Varghese is a 69 year old white male is admitted to hospital through the emergency room, where he presented with generalized weakness, shortness of breath .he was seen by me in the [facility] yesterday for the first time. Because of his symptoms, he had some basic labs including the CBC. The lab called me last night with his hemoglobin of 5.6. He was advised to come the emergency room for further evaluation and management. Since hospital admission, he received a total of 3 units of blood transfusion(PRBC) This patient with multiple medical problems, has been progressively getting short of breath and fatigued over the last couple of months. He did not have any chest pain, palpitation, fever, chills or cough. He has been noticed increasing swelling of both lower extremities. He has no abdominal pain or dysuria. Has been having intermittent constipation. No hematemesis or melena. He is known to have cardiomyopathy, chronic atrial fibrillation . He also had a n aortic valve replacement x2. He is on long-term oral anticoagulation with Eliquis. Patient is known to have multiple medical problems. He had a 3 open heart surgeries in the past, in 1998, 2012 and 2018. 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 Patient is known to have cardiomyopathy and congestive heart failure. His LV ejection fraction was around 30% by echocardiogram in 2018. He had an ICD implantation, 3 years ago or so. The details are not available. Apparently has a [employer] device. He has a baseline shortness of breath with activities. Seems to be getting more short of breath with exertion. He also has been noticing swelling of both lower extremities for the last year or so. This may be slowly getting worse. He was on Lasix for a while and the dose was titrated up. Since there was no significant improvement, he was switched to torsemide. Currently he is taking the torsemide 40 mg p.o. twice daily. According the patient, there is no significant improvement in the shortness of breath or the leg swelling with the medication. He denies any fever, chills or cough. Patient has a history of chronic atrial fibrillation and is on long-term oral anticoagulation. He has not had a bleeding complications. He has a history of CVA prior to the last open heart surgery. Subsequent evaluation revealed carotid artery stenosis for which he underwent carotid endarterectomy. He has no history for any peripheral artery disease. Patient has a history of type 2 diabetes. His blood sugar has been staying high lately. The fasting blood sugar was in the 120 -130 range. He has not had a recent in the office ICD interrogation. He has the device for the transtelephonic transmission. Is not clear whether this is being monitored or not. Patient is complaining of feeling of weakness/fatigue. Overall functional status seems to be declining. He has some visual disturbances especially with the peripheral vision. He also has occasional numbness of the extremities. No chest pain or palpitations. No fever, chills or cough. Review of Systems Narrative: CONSTITUTIONAL: No fever or chills. Generalized fatigue and dyspnea on exertion EYES: No blurring of vision or other visual disturbances lately. ENT: No hoarseness of voice, auditory disturbances or sore throat. CARDIOVASCULAR: Has some orthopnea. RESPIRATORY: Progressive shortness of breath as mentioned above GASTROINTESTINAL: No hematemesis or melena. GENITOURINARY: No dysuria or hematuria. INTEGUMENTARY: No skin rashes or history of skin cancer. NEURO: History of CVA currently has impaired peripheral vision in the right eye PSYCHIATRIC: No history of psychosis or major depression. HEMATOLOGIC: On long-term oral anticoagulation. Anemia as mentioned above ENDOCRINE: No history of polyuria or polydipsia. MUSCULOSKELETAL: No recent joint pain or swelling. ALLERGY/IMMUNOLOGY: As mentioned above. Meds/Allergies Home Medications and Allergies Home Medications Medication Instructions Recorded Confirmed Last Taken Type apixaban 5 mg tablet 5 mg PO BID 03/31/20 03/31/20 03/31/20 History aspirin 81 mg tablet,delayed 81 mg PO DAILY 03/31/20 03/31/20 03/31/20 History release carvedilol 12.5 mg tablet 12.5 mg PO BID 03/31/20 03/31/20 03/31/20 History duloxetine 30 mg capsule,delayed 60 mg PO DAILY cap 03/31/20 03/31/20 03/31/20 History release empagliflozin 10 mg tablet 10 mg PO DAILY 30 Days #30 tab 03/31/20 03/31/20 Unk nown Rx escitalopram oxalate 10 mg PO DAILY 03/31/20 03/31/20 03/31/20 History metformin 1,000 mg tablet 1,000 mg PO BID 03/31/20 03/31/20 03/31/20 History pantoprazole 40 mg tablet,delayed 40 mg PO DAILY 03/31/20 03/31/20 03/31/20 History release rosuvastatin 20 mg tablet 20 mg PO DAILY 03/31/20 03/31/20 03/31/20 History sacubitril 24 mg-valsartan 26 mg 1 tab PO BID 03/31/20 03/31/20 03/31/20 History tablet torsemide 100 mg tablet 100 mg PO DAILY #90 tab 03/31/20 03/31/20 03/31/20 Rx tramadol 37.5 mg-acetaminophen 325 1 tab PO BID PRN 03/31/20 03/31/20 03/31/20 History mg tablet Allergies Allergy/AdvReac Type Severity Reaction Status Date / Time No Known Allergies Allergy Unverified 03/31/20 14:13 Current Medications Current Medications Generic Name Dose Route Start Last Admin Trade Name Freq PRN Reason Stop Dose Admin Atorvastatin Calcium 80 mg 04/01/20 09:00 04/01/20 10:00 Lipitor PO 80 mg DAILY BRYANT Administration Carvedilol 12.5 mg 04/01/20 09:00 04/01/20 17:42 Coreg PO 12.5 mg BID BRYANT Administration Duloxetine HCl 60 mg 04/01/20 09:00 04/01/20 10:00 Cymbalta PO 60 mg DAILY BRYANT Administration Furosemide 20 mg 04/01/20 10:51 04/01/20 17:42 Lasix IVP 20 mg ONCE PRN Administration after blood transfusion Insulin Aspart 0 unit 04/01/20 12:00 04/01/20 17:41 Novolog SUBCUT 4 unit TIDWM BRYANT Administration Protocol Pantoprazole Sodium 40 mg 04/01/20 09:00 04/01/20 17:48 Protonix IVP 40 mg BID BRYANT Administration Senna/Docusate Sodium 1 tab 04/01/20 09:00 04/01/20 10:01 Senna-S PO Not Given DAILY BRYANT Torsemide 100 mg 04/01/20 09:00 04/01/20 10:00 Demadex PO 100 mg DAILY BRYANT Administration PFSH Acute PFSH: Medical History Atrial fibrillation Bilateral carotid artery stenosis CAD (coronary artery disease) CHF (congestive heart failure) EF ~30% CVA (cerebral vascular accident) prior to cardiac surgery 2018, Left MCA, 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 Diabetes Dyslipidemia Endocarditis Hypertension ICD (implantable cardioverter-defibrillator) in place possibly [facility] Ho device Ischemic cardiomyopathy TIA (transient ischemic attack) Type 2 diabetes mellitus A1c 6.30 March 2020 Surgical History 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 H/O carotid endarterectomy Hx of aortic valve replacement bioprosthetic, 2013 Hx of CABG 1998, 5V Family History Other CAD (coronary artery disease) Cancer Chronic kidney disease (CKD) Diabetes Family history of premature coronary artery disease Hyperlipidemia Hypertension Stroke Social History Smoking and tobacco status: former smoker Alcohol intake: current Alcohol intake frequency: holidays/special occasions only Desire information about substance/drug rehabilitation?: No Housing: House Vitals/I&O/Wt Last Vital Signs Temp 97.8 F 04/01/20 14:55 Pulse 70 04/01/20 14:55 Resp 13 04/01/20 14:55 BP 124/73 04/01/20 14:55 Pulse Ox 99 04/01/20 14:55 04/01/20 04/01/20 04/01/20 06:59 14:59 22:59 Intake Total 500 / 500 1400 / 1400 600 / 2000 Output Total 650 / 650 1300 / 1300 Balance -150 / -150 1400 / 1400 -700 / 700 Weight last 48 hrs Weight 262 lb Physical Exam Narrative: EXAM NARRATIVE: GENERAL: The patient is alert and oriented times three. Not in any acute distress. Somewhat ill looking HEENT: Moderate pallor, no icterus or lymphadenopathy. The pupils are reacting to light. Oral cavity: There are no mucous membrane lesions. Funduscopic examination: The fundus is not visualized NECK: Trachea appears to be central. No masses noted. No JVD or thyromegaly appreciated. No carotid bruit. RESPIRATORY: Chest is symmetrical. No intercostals muscle retraction or any accessory muscle activation. There is no chest wall tenderness. Breath sounds are heard bilaterally. Intensity the breath sounds are diminished in the bases. The ICD implantation site looks okay with no evidence of any infection BREASTS: Deferred. HEART: T the PMI could not be palpated. No other palpable precordial events. First heart sound is normal. No S3. Short systolic murmur at the left sternal border. No diastolic murmurs. No pericardial rub. ABDOMEN: No vessel pulsations or distention. No tenderness. No organomegaly appreciated. No abdominal bruit. Bowel sounds are normally heard. : Deferred. RECTAL: Deferred. LYMPHATIC: No lymphadenopathy noted in the neck or groin. EXTREMITIES: 1-2+ edema both lower extremities. No cyanosis. MUSCULOSKELETAL: No acute joint deformities or swelling SKIN: There are no significant scars or skin rash noted. NEUROPSYCHIATRIC: The patient is alert and oriented x3. Appears to be in a good mood. The higher functions are grossly within normal limits. No tremors or rigidity noted. Data Labs: Other Labs: Laboratory Results - last 24 hr 03/31/20 03/31/20 03/31/20 20:45 20:45 20:45 WBC 6.2 RBC 2.69 L Hgb 5.6 L* Hct 21.4 L MCV 79.6 L MCH 20.8 L MCHC 26.2 L RDW 18.8 H Plt Count 272 MPV 11.3 H Neut % (Auto) 67.8 Lymph % (Auto) 17.3 [place] % (Auto) 12.8 Eos % (Auto) 1.1 Baso % (Auto) 0.8 Neut # (Auto) 4.2 Lymph # (Auto) 1.1 [place] # (Auto) 0.8 Eos # (Auto) 0.1 Baso # (Auto) 0.1 Nucleated RBC % (a uto) 0.6 Nucleated RBCs # 0.0 PT INR APTT Specimen Type Sample Site ABG pH ABG pCO2 ABG pO2 ABG HCO3 ABG Base Excess Edis Test Hematocrit O2 Delivery Device Drug Safety Scientist ID Sodium 134 L Potassium 4.5 Chloride 98 Carbon Dioxide 22 Anion Gap 18.5 BUN 36 H Creatinine 1.9 H GFR Calculation 35.5 L Glucose 165 H POC Glucose Calculated Osmolal ity 279 L Lactic Acid (Sepsi s) Lactate 2.5 H Calcium 9.1 Iron Ferritin Total Bilirubin 0.7 AST 44 H ALT 50 H Alkaline Phosphata se 122 Troponin I 6 Hour Troponin I Hi Sens Del Troponin T Baselin e Troponin T 120 Min [place] Troponin T NT-Pro-B Natriuret Pep 4609 H Total Protein 7.0 Albumin 4.2 Globulin 2.8 Lipase 83 H Urine Color Urine Appearance Urine pH Ur Specific Gravit y Urine Protein Urine Glucose (UA) Urine Ketones Urine Blood Urine Nitrate Urine Bilirubin Urine Urobilinogen Ur Leukocyte Brandi ase Blood Type Rho(D) Type Antibody Screen Crossmatch 03/31/20 03/31/20 03/31/20 20:45 20:45 20:45 WBC RBC Hgb Hct MCV MCH MCHC RDW Plt Count MPV Neut % (Auto) Lymph % (Auto) [place] % (Auto) Eos % (Auto) Baso % (Auto) Neut # (Auto) Lymph # (Auto) [place] # (Auto) Eos # (Auto) Baso # (Auto) Nucleated RBC % (a uto) Nucleated RBCs # PT 23.80 H INR 2.10 H APTT 51.3 H Specimen Type Sample Site ABG pH ABG pCO2 ABG pO2 ABG HCO3 ABG Base Excess Edis Test Hematocrit O2 Delivery Device Drug Safety Scientist ID Sodium Potassium Chloride Carbon Dioxide Anion Gap BUN Creatinine GFR Calculation Glucose POC Glucose Calculated Osmolal ity Lactic Acid (Sepsi s) Lactate Calcium Iron Ferritin Total Bilirubin AST ALT Alkaline Phosphata se Troponin I 6 Hour Troponin I Hi Sens Del Troponin T Baselin e 46 H Troponin T 120 Min [place] Troponin T NT-Pro-B Natriuret Pep Total Protein Albumin Globulin Lipase Urine Color Urine Appearance Urine pH Ur Specific Gravit y Urine Protein Urine Glucose (UA) Urine Ketones Urine Blood Urine Nitrate Urine Bilirubin Urine Urobilinogen Ur Leukocyte Brandi ase Blood Type A Negative Rho(D) Type Negative Antibody Screen Negative Crossmatch See Detail 06/07/1203/31/20 03/31/20 20:48 22:29 22:30 WBC RBC Hgb Hct MCV MCH MCHC RDW Plt Count MPV Neut % (Auto) Lymph % (Auto) [place] % (Auto) Eos % (Auto) Baso % (Auto) Neut # (Auto) Lymph # (Auto) [place] # (Auto) Eos # (Auto) Baso # (Auto) Nucleated RBC % (a uto) Nucleated RBCs # PT INR APTT Specimen Type Arterial Sample Site Brachial, right ABG pH 7.42 ABG pCO2 34.2 L ABG pO2 91.2 ABG HCO3 22.2 ABG Base Excess -2.1 L Edis Test N/a Hematocrit 17.1 L O2 Delivery Device Room air Drug Safety Scientist ID harkr Sodium Potassium Chloride Carbon Dioxide Anion Gap BUN Creatinine GFR Calculation Glucose POC Glucose Calculated Osmolal ity Lactic Acid (Sepsi s) Lactate Calcium Iron Ferritin Total Bilirubin AST ALT Alkaline Phosphata se Troponin I 6 Hour Troponin I Hi Sens Del Troponin T Baselin e Troponin T 120 Min [place] 47.04 [place] Troponin T 1.04 NT-Pro-B Natriuret Pep Total Protein Albumin Globulin Lipase Urine Color Yellow Urine Appearance Clear Urine pH 5 Ur Specific Gravit y 1.020 Urine Protein Neg Urine Glucose (UA) Norm Urine Ketones Negative Urine Blood Neg Urine Nitrate Negative Urine Bilirubin Neg Urine Urobilinogen Norm Ur Leukocyte Brandi ase Negative Blood Type Rho(D) Type Antibody Screen Crossmatch 04/01/20 04/01/20 04/01/20 00:00 02:35 02:35 WBC RBC Hgb Hct MCV MCH MCHC RDW Plt Count MPV Neut % (Auto) Lymph % (Auto) [place] % (Auto) Eos % (Auto) Baso % (Auto) Neut # (Auto) Lymph # (Auto) [place] # (Auto) Eos # (Auto) Baso # (Auto) Nucleated RBC % (a uto) Nucleated RBCs # PT INR APTT Specimen Type Sample Site ABG pH ABG pCO2 ABG pO2 ABG HCO3 ABG Base Excess Edis Test Hematocrit O2 Delivery Device Drug Safety Scientist ID Sodium Potassium Chloride Carbon Dioxide Anion Gap BUN Creatinine GFR Calculation Glucose POC Glucose Calculated Osmolal ity Lactic Acid (Sepsi s) 1.5 Lactate Calcium Iron 14 L Ferritin 8 L Total Bilirubin AST ALT Alkaline Phosphata se Troponin I 6 Hour 46.38 H Troponin I Hi Sens Del 0.38 Troponin T Baselin e Troponin T 120 Min [place] Troponin T NT-Pro-B Natriuret Pep Total Protein Albumin Globulin Lipase Urine Color Urine Appearance Urine pH Ur Specific Gravit y Urine Protein Urine Glucose (UA) Urine Ketones Urine Blood Urine Nitrate Urine Bilirubin Urine Urobilinogen Ur Leukocyte Brandi ase Blood Type Rho(D) Type Antibody Screen Crossmatch 04/01/20 04/01/20 04/01/20 02:35 09:25 11:01 WBC 6.1 RBC 2.96 L Hgb 6.7 L Hct 23.8 L MCV 80.4 MCH 22.6 L MCHC 28.2 L D RDW 19.2 H Plt Count 247 MPV 11.1 H Neut % (Auto) 71.6 Lymph % (Auto) 13.8 [place] % (Auto) 11.7 Eos % (Auto) 1.5 Baso % (Auto) 1.2 Neut # (Auto) 4.4 Lymph # (Auto) 0.8 [place] # (Auto) 0.7 Eos # (Auto) 0.1 Baso # (Auto) 0.1 Nucleated RBC % (a uto) 0.5 Nucleated RBCs # 0.0 PT INR APTT Specimen Type Sample Site ABG pH ABG pCO2 ABG pO2 ABG HCO3 ABG Base Excess Edis Test Hematocrit O2 Delivery Device Drug Safety Scientist ID Sodium 136 Potassium 4.8 Chloride 100 Carbon Dioxide 22 Anion Gap 18.8 BUN 32 H Creatinine 1.9 H GFR Calculation 35.5 L Glucose 149 H POC Glucose 208 Calculated Osmolal ity 282 L Lactic Acid (Sepsi s) Lactate Calcium 9.9 Iron Ferritin Total Bilirubin AST ALT Alkaline Phosphata se Troponin I 6 Hour Troponin I Hi Sens Del Troponin T Baselin e Troponin T 120 Min [place] Troponin T NT-Pro-B Natriuret Pep Total Protein Albumin Globulin Lipase Urine Color Urine Appearance Urine pH Ur Specific Gravit y Urine Protein Urine Glucose (UA) Urine Ketones Urine Blood Urine Nitrate Urine Bilirubin Urine Urobilinogen Ur Leukocyte Brandi ase Blood Type Rho(D) Type Antibody Screen Crossmatch 04/01/20 04/01/20 16:04 17:35 WBC RBC Hgb 7.4 L Hct 26.0 L MCV MCH MCHC RDW Plt Count MPV Neut % (Auto) Lymph % (Auto) [place] % (Auto) Eos % (Auto) Baso % (Auto) Neut # (Auto) Lymph # (Auto) [place] # (Auto) Eos # (Auto) Baso # (Auto) Nucleated RBC % (a uto) Nucleated RBCs # PT INR APTT Specimen Type Sample Site ABG pH ABG pCO2 ABG pO2 ABG HCO3 ABG Base Excess Edis Test Hematocrit O2 Delivery Device Drug Safety Scientist ID Sodium Potassium Chloride Carbon Dioxide Anion Gap BUN Creatinine GFR Calculation Glucose POC Glucose 182 Calculated Osmolal ity Lactic Acid (Sepsi s) Lactate Calcium Iron Ferritin Total Bilirubin AST ALT Alkaline Phosphata se Troponin I 6 Hour Troponin I Hi Sens Del Troponin T Baselin e Troponin T 120 Min [place] Troponin T NT-Pro-B Natriuret Pep Total Protein Albumin Globulin Lipase Urine Color Urine Appearance Urine pH Ur Specific Gravit y Urine Protein Urine Glucose (UA) Urine Ketones Urine Blood Urine Nitrate Urine Bilirubin Urine Urobilinogen Ur Leukocyte Brandi ase Blood Type Rho(D) Type Antibody Screen Crossmatch Imaging^: Echo: My impression: Echocardiogram from 04/01/2020 revealed Dilated left ventricle with diminished ejection fraction of 30 to 35%. Diffuse hypokinesia of the left ventricle. Mildly increased right ventricular size. Mildly decreased right ventricular systolic function. Pacemaker/ICD wire in the right ventricle. Mild biatrial enlargement Mild mitral with trace of aortic and tricuspid regurgitation Mild pulmonary hypertension with an estimated pulmonary artery peak systolic pressure of 46 mmHg ICD/pacemaker wire in the right atrium and right ventricle No significant pericardial effusion. No similar previous studies are available for comparison CT Abd/Pel: Radiologist's impression: 03/31/2020 1. Negative for acute inflammatory process 2. Moderate bilateral pleural effusions. 3. Bibasilar atelectasis 4. Sternotomy wires. 5. Diverticulosis without diverticulitis. CXR: My impression: Moderate cardiomegaly. Small bilateral pleural effusion. ICD with endocardial and epicardial leads. EKG^: EKG 1: My Interpretation: 100% ventricular paced rhythm. Possible underlying atrial fibrillation. Further interpretation is not possible. A&P Assessment and plan (1) CHF (congestive heart failure): Patient has features of acute on chronic systolic heart failure. He has mild decompensation. Hemodynamically seems to be stable. May be carefully treated with IV diuretics. The severe anemia could be a major contributing factor. In view of his underlying chronic kidney disease, he may require a higher dose of Lasix. Status: Acute Qualifiers: Heart failure type: systolic Heart failure chronicity: chronic Qualified Code(s): I50.22 - Chronic systolic (congestive) heart failure (2) Severe anemia: The etiology of the severe anemia is not clear. In spite of the 3 units of blood transfusion, the hemoglobin of 7.6, may suggest ongoing bleeding. This needs to be further evaluated. Status: Acute (3) Ischemic cardiomyopathy: The LV ejection fraction has not significantly changed from the previous section fraction by echocardiogram in 2018. May continue on the current medications. We will carefully try to optimize the dose of the Entrest[place] Status: Acute (4) CAD (coronary artery disease): Since the patient has no chest pain or any specific cardiac symptoms, we may hold off on any further intervention at this point. Continue on the current medications. Status: Acute Qualifiers: Coronary Disease-Associated Artery/Lesion type: [place] artery [place] vs. transplanted heart: [place] heart Associated angina: without angina Qualified Code(s): I25.10 - Atherosclerotic heart disease of [place] coronary artery without angina pectoris (5) Chronic anticoagulation: Patient has been taking the Eliquis for the last more than 2 years. Has not had any bleeding complications so far. Because of the severe anemia, and possible ongoing bleed, it would be appropriate to hold off on the Eliquis at this time. The possible risks were discussed with the patient in detail which he understood well. Status: Acute Additional A&P Information Other problems are Chronic kidney disease Diabetes with uncontrolled blood sugar History of CVA from carotid artery stenosis? Bilateral carotid artery disease Status post AVR x2 History of essential benign hypertension Dyslipidemia Patient may be closely monitored on telemetry. Based on his clinical progress, further recommendations will be made. GI work-up as per the primary service Consult Attestations Medical Necessity Statement: Patient requires continued hospital stay for close monitoring and further management Coding Level of Care Code Acute Driveway Sealer for g Fwd Diagnoses CHF (congestive heart failure) I50.22 Heart failure type: systolic Heart failure chronicity: chronic Severe anemia D64.9 Ischemic cardiomyopathy I25.5 CAD (coronary artery disease) I25.10 Coronary Disease-Associated Artery/Lesion type: [place] artery [place] vs. transplanted heart: [place] heart Associated angina: without angina Chronic anticoagulation Z79.01
[2020-04-01 20:45] LABS: Glucose Point of Care 272 mg/dL (70-110)
--- NOTE | 2020-04-01 21:58 | PC.NURSE ---
Rounding on patient. Patient lying in bed watching tv. Requested Sprite with ice which was provided.
--- NOTE | 2020-04-01 22:10 | PC.NURSE ---
Spoke with Dr Londono on the telephone. Reported to that patient had only 700ml of urine out since last dose of IV Lasix. Patient doing well. Received order to start Lasix 40mg IVP every 8 hours and a one time dose of KCl 20mEq PO. Orders placed as received.
[2020-04-01] MEDS: FUROsemide 10 mg/mL SDV 4mL 40 MG IVP (23:00)
[2020-04-01] MEDS: potassium chloride ER 10 mEq Tablet 20 MEQ PO (23:00)
[2020-04-02] VITALS: BP 103/55; PULSE 71; RESP 19; TEMP 36.8; O2SAT 98
--- NOTE | 2020-04-02 03:58 | PC.NURSE ---
Patient up sitting on side of bed. Patient reports feeling much better this morning. Patient requested hot tea which was provided. No distress observed.
[2020-04-02 04:00] VITALS: BP 135/75; PULSE 71; RESP 22; TEMP 36.8; O2SAT 97
[2020-04-02 05:18] LABS: Basophils # 0.1 10^3/uL (0.0-0.1); Eosinophils # 0.2 10^3/uL (0.0-0.8); Eosinophils % 2.3 %; Hematocrit 25.6 % (42.0-52.0); Hemoglobin 7.4 g/dL (11.7-16.6); Lymphocytes # 1.1 10^3/uL (0.8-4.8); Lymphocytes % 14.3 %; Mean Corpuscular HGB Conc 28.9 g/dL (30.0-36.0); Mean Corpuscular Hemoglobin 23.1 pg (28.0-34.0); Mean Platelet Volume 11.8 fL (7.4-10.4); Monocytes # 0.9 10^3/uL (0.2-0.9); Monocytes % 12.1 %; Neutrophils # 5.4 10^3/uL (1.8-7.7); Neutrophils % 69.9 %; Nucleated Red Blood Cells % 0.3 %; Platelet Count 255 10^3/cmm (130-400); Red Cell Distribution Width 18.9 % (12.1-15.1); White Blood Count 7.8 10^3/uL (4.0-10.0)
[2020-04-02 05:31] LABS: Anion Gap 18.9 (5-19); Blood Urea Nitrogen 32 mg/dL (8-23); Calcium 9.8 mg/dL (8.5-10.5); Carbon Dioxide 27 mmol/L (22-29); Chloride 95 mmol/L (98-107); Glomerular Filtration Rate 35.5 mL/min (90-130); Glucose 143 mg/dL (65-115); Magnesium 1.7 mg/dL (1.7-2.3); Osmolality Calculated 282 mOsm/kg (285-295); Potassium 4.9 mmol/L (3.5-5.1); Sodium 136 mmol/L (136-145)
[2020-04-02 06:25] LABS: Glucose Point of Care 143 mg/dL (70-110)
[2020-04-02 07:07] VITALS: BP 133/69; PULSE 70; RESP 23; TEMP 36.5; O2SAT 96
[2020-04-02] MEDS: FUROsemide 10 mg/mL SDV 4mL 40 MG IVP ×3 (07:39→23:08)
--- NOTE | 2020-04-02 08:14 | PM.PN ---
Subjective Subjective: Interval history: The patient is feeling better. Denies any chest pain. Shortness of breath has somewhat improved. Still has the feeling of generalized weakness. The hemoglobin is staying around 7.4 after 3 units of blood transfusion. Denies any orthopnea. No fever, chills or cough. Telemetry shows atrial fibrillation with demand ventricular pacing. No new arrhythmias. Medications: Reviewed: Yes Medication Review Details: Current Medications Atorvastatin Calcium (Lipitor) 80 mg PO DAILY [facility] Last Admin: 04/01/20 10:00 Dose: 80 mg Documented by: Carvedilol (Coreg) 12.5 mg PO BID [facility] Last Admin: 04/01/20 17:42 Dose: 12.5 mg Documented by: Dextrose (D50w) 25 ml IVP ONCE PRN; Protocol PRN Reason: hypoglycemia protocol Dextrose (D50w) 50 ml IVP PRN PRN; Protocol PRN Reason: hypoglycemia protocol Duloxetine HCl (Cymbalta) 60 mg PO DAILY [facility] Last Admin: 04/01/20 10:00 Dose: 60 mg Documented by: Escitalopram Oxalate (Lexapro) 10 mg PO DAILY [facility] Furosemide (Lasix) 20 mg IVP ONCE PRN PRN Reason: after blood transfusion Last Admin: 04/01/20 17:42 Dose: 20 mg Documented by: Furosemide (Lasix) 40 mg IVP Q8H [facility] Last Admin: 04/02/20 07:39 Dose: 40 mg Documented by: Glucagon (Glucagen) 1 mg IM ONCE PRN; Protocol PRN Reason: Adult Acute Hypoglycemia Prot. Dextrose (D5w) 500 mls @ 100 mls/hr IV ONCE PRN; Protocol PRN Reason: Adult Acute Hypoglycemia Prot Insulin Aspart (Novolog) 0 unit SUBCUT BEDTIME [facility]; Protocol Last Admin: 04/01/20 20:41 Dose: 4 unit Documented by: Insulin Aspart (Novolog) 0 unit SUBCUT TIDWM [facility]; Protocol Last Admin: 04/02/20 07:40 Dose: 2 unit Documented by: Non-Formulary Medication (Tramadol-Acetaminophen) 1 tab PO BID PRN PRN Reason: UNKNOWN Pantoprazole Sodium (Protonix) 40 mg IVP BID [facility] Last Admin: 04/01/20 17:48 Dose: 40 mg Documented by: Senna/Docusate Sodium (Senna-S) 1 tab PO DAILY [facility] Last Admin: 04/01/20 10:01 Dose: Not Given Documented by: Torsemide (Demadex) 100 mg PO DAILY [facility] Last Admin: 04/01/20 10:00 Dose: 100 mg Documented by: Vitals/I&O/Wt Last Vital Signs Temp 97.7 F 04/02/20 07:07 Pulse 70 04/02/20 07:07 Resp 23 H 04/02/20 07:07 BP 133/69 04/02/20 07:07 Pulse Ox 96 04/02/20 07:07 04/01/20 04/02/20 04/02/20 22:59 06:59 14:59 Intake Total 840 / 2240 120 / 2360 240 / 240 Output Total 1300 / 1300 1050 / 2350 Balance -460 / 940 -930 / 10 240 / 240 Weight last 48 hrs Weight 262 lb Physical Exam Narrative: EXAM NARRATIVE: GENERAL: The patient is alert and oriented times three. Not in any acute distress. Somewhat ill looking HEENT: Moderate pallor, no icterus or lymphadenopathy. The pupils are reacting to light. Oral cavity: There are no mucous membrane lesions. Funduscopic examination: The fundus is not visualized NECK: Trachea appears to be central. No masses noted. No JVD or thyromegaly appreciated. No carotid bruit. RESPIRATORY: Chest is symmetrical. No intercostals muscle retraction or any accessory muscle activation. There is no chest wall tenderness. Breath sounds are heard bilaterally. Intensity the breath sounds are diminished in the bases. The ICD implantation site looks okay with no evidence of any infection BREASTS: Deferred. HEART: T the PMI could not be palpated. No other palpable precordial events. First heart sound is normal. No S3. Short systolic murmur at the left sternal border. No diastolic murmurs. No pericardial rub. ABDOMEN: No vessel pulsations or distention. No tenderness. No organomegaly appreciated. No abdominal bruit. Bowel sounds are normally heard. : Deferred. RECTAL: Deferred. LYMPHATIC: No lymphadenopathy noted in the neck or groin. EXTREMITIES: 1+ edema both lower extremities. No cyanosis. MUSCULOSKELETAL: No acute joint deformities or swelling SKIN: There are no significant scars or skin rash noted. NEUROPSYCHIATRIC: The patient is alert and oriented x3. Appears to be in a good mood. The higher functions are grossly within normal limits. No tremors or rigidity noted. Data : 04/02/20 04:40 04/02/20 04:40 A&P Assessment and plan (1) CHF (congestive heart failure): Patient has features of acute on chronic systolic heart failure. Seems to be getting compensated hemodynamically seems to be stable. May be carefully treated with IV diuretics. The severe anemia could be a major contributing factor. The Demadex may be discontinued at this time. Continue the Lasix 40 mg every 8 hours. Also may add potassium 20 mEq p.o. twice daily. Repeat BMP in the morning Status: Acute Qualifiers: Heart failure chronicity: chronic Heart failure type: systolic Qualified Code(s): I50.22 - Chronic systolic (congestive) heart failure (2) Severe anemia: The etiology of the severe anemia is not clear. In spite of the 3 units of blood transfusion, the hemoglobin of 7.4, may suggest ongoing bleeding. This needs to be further evaluated. If the patient continues remain stable otherwise, it may be appropriate to go ahead GI evaluation Status: Acute (3) Ischemic cardiomyopathy: The LV ejection fraction has not significantly changed from the previous section fraction by echocardiogram in 2018. May continue on the current medications. We will carefully try to optimize the dose of the Entresto Status: Acute (4) CAD (coronary artery disease): Since the patient has no chest pain or any specific cardiac symptoms, we may hold off on any further intervention at this point. Continue on the current medications. Status: Acute Qualifiers: Associated angina: without angina Coronary Disease-Associated Artery/Lesion type: redding artery [place] vs. transplanted heart: redding heart Qualified Code(s): I25.10 - Atherosclerotic heart disease of redding coronary artery without angina pectoris (5) Chronic anticoagulation: Patient has been taking the Eliquis for the last more than 2 years. Has not had any bleeding complications so far. Because of the severe anemia, and possible ongoing bleed, it would be appropriate to hold off on the Eliquis at this time. The possible risks were discussed with the patient in detail which he understood well. Status: Acute Additional A&P Information Other problems are Chronic kidney disease Diabetes with uncontrolled blood sugar History of CVA from carotid artery stenosis? Bilateral carotid artery disease Status post AVR x2 History of essential benign hypertension Dyslipidemia Attestations Medical Necessity Statement*: Patient requires continued hospital stay for close monitoring and further management Coding Level of Care Code Acute Rn Utilization Management Um for Alisha Fwxavier Diagnoses CHF (congestive heart failure) I50.22 Heart failure chronicity: chronic Heart failure type: systolic Severe anemia D64.9 Ischemic cardiomyopathy I25.5 CAD (coronary artery disease) I25.10 Associated angina: without angina Coronary Disease-Associated Artery/Lesion type: redding artery [place] vs. transplanted heart: redding heart Chronic anticoagulation Z79.01
--- NOTE | 2020-04-02 08:40 | PC.NURSE ---
Dr. wilde at bedside for rounding at this time to discuss POC; verbal instructions given to hold torsemide; possible further testing
[2020-04-02] MEDS: sennosides-docusate Tablet 1 TAB PO (09:08)
[2020-04-02] MEDS: duloxetine 30 mg Capsule 60 MG PO (09:08)
[2020-04-02] MEDS: atorvastatin 40 mg Tablet 80 MG PO (09:08)
[2020-04-02] MEDS: escitalopram 10 mg Tablet PO (09:09)
[2020-04-02] MEDS: carvedilol 12.5 mg Tablet PO ×2 (09:09→17:43)
[2020-04-02] MEDS: pantoprazole 40 mg SDV IVP ×2 (09:09→17:44)
[2020-04-02 10:43] VITALS: BP 99/47; PULSE 70; RESP 17; TEMP 36.8
[2020-04-02 11:35] LABS: Glucose Point of Care 246 mg/dL (70-110)
--- NOTE | 2020-04-02 13:38 | PC.NURSE ---
notified Dr Castellanos of patient abd discomfort and was as inability to have a bm awaiting new orders
[2020-04-02] MEDS: bisacodyl 10 mg Supp PR (14:35)
[2020-04-02 14:54] VITALS: BP 114/71; PULSE 70; RESP 20; TEMP 36.6; O2SAT 97
[2020-04-02 16:33] LABS: Glucose Point of Care 129 mg/dL (70-110)
--- NOTE | 2020-04-02 16:35 | PC.NURSE ---
patient had a small brown BM patient reports not much relief after having a BM. Dr Castellanos notified with no new instructions given at this time
[2020-04-02] MEDS: sennosides-docusate Tablet 2 TAB PO (17:43)
--- NOTE | 2020-04-02 18:27 | PC.NURSE ---
Dr Castellanos rounding patient spoke with patient about scoping patient is agreement for testing
--- NOTE | 2020-04-02 18:27 | PM.PN ---
Subjective Subjective: Interval history: Mr. Varghese is feeling some better today. Having some constipation. Not quite as short of breath though. Still with edema. I reviewed with both him and his the significant drop in hemoglobin since November of this year when his hemoglobin was 10. He was not urgently wanting to consider endoscopy during the hospital stay but is now agreeable. I discussed the case with Dr. Fields and we are going to attempt to get this arranged for tomorrow. Vitals/I&O/Wt Last Vital Signs Temp 97.8 F 04/02/20 14:54 Pulse 70 04/02/20 14:54 Resp 20 H 04/02/20 14:54 BP 114/71 04/02/20 14:54 Pulse Ox 97 04/02/20 14:54 04/02/20 04/02/20 04/02/20 06:59 14:59 22:59 Intake Total 120 / 2360 480 / 480 480 / 960 Output Total 1050 / 2350 700 / 700 Balance -930 / 10 -220 / -220 480 / 260 Weight last 48 hrs Weight 118.841 kg Physical Exam Const: OTHER: Alert, oriented x3, cooperative HENMT: OTHER: Normocephalic atraumatic, not as pale Eye: OTHER: Extraocular movements intact Neck/C-Spine: OTHER: Supple Resp: OTHER: Not as tachypneic, no wheezes, no Rales though has slightly decreased breath sounds today compared to yesterday Cardio: OTHER: Regular rhythm GI: OTHER: Abdomen soft, nontender, positive bowel sounds Extremity: NARRATIVE EXTREMITY EXAM: Edema is down a bit from yesterday but still 2+ Neuro: OTHER: Face symmetric, speech clear, moves all extremities Psych: OTHER: Normal affect Skin: OTHER: Chronic stasis changes are unchanged Data : 04/02/20 04:40 04/02/20 04:40 A&P Assessment and plan (1) Severe anemia: Symptomatic, iron deficiency with reported intermittent GI losses with bright red blood. I suspect he has had a slow drop in his hemoglobin and that there is a chronic component to this in addition to possible acute process. I was able to confirm that his hemoglobin in November of this year was 10.7. Concerning factor is that he is on chronic anticoagulation. He has received a total of 3 units of packed red blood cells with hemoglobin up to 7.4. Status: Acute (2) Diverticula of colon: Suspected diverticular bleed at admission, bright red blood noted today with bowel movement Status: Acute (3) Chronic anticoagulation: With Eliquis which is now held Status: Acute (4) Acute kidney injury: Baseline creatinine is 1.4 from November of this year. Status: Acute (5) CHF (congestive heart failure): Ejection fraction around 30%. He is normally on Entresto which is been held due to renal function presently. Chronically managed with torsemide. Status: Acute Qualifiers: Heart failure type: systolic Heart failure chronicity: chronic Qualified Code(s): I50.22 - Chronic systolic (congestive) heart failure (6) CAD (coronary artery disease): With prior bypass surgery. Chronically on aspirin, carvedilol and statin Status: Acute Qualifiers: Coronary Disease-Associated Artery/Lesion type: [place] artery [place] vs. transplanted heart: [place] heart Associated angina: without angina Qualified Code(s): I25.10 - Atherosclerotic heart disease of [place] coronary artery without angina pectoris (7) Type 2 diabetes mellitus: Chronically on metformin and was started on Jardiance I believe recently. A1c 6.30 March 2020 Status: Acute Qualifiers: Diabetes mellitus rodent exterminator insulin use: with correction use Diabetes mellitus complication status: with hyperglycemia Qualified Code(s): E11.65 - Type 2 diabetes mellitus with hyperglycemia; Z79.4 - halfway (current) use of insulin (8) Hx of aortic valve replacement: With aortic root replacement. Suspected to be bioprosthetic but not confirmed at this point in time. Status: Acute (9) Atrial fibrillation: Chronic Status: Acute Qualifiers: Atrial fibrillation type: permanent Qualified Code(s): I48.21 - Permanent atrial fibrillation (10) CVA (cerebral vascular accident): Around the time of one of his prior heart surgeries. Has had carotid endarterectomy. Previously involved left MCA. Minor residual visual field changes. Patient is fearful of having another stroke, especially if he has to come off of anticoagulation. 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 Appreciate Dr. Fields's assistance Dr. Londono is following from a cardiac standpoint. He is currently on IV Lasix home torsemide is held. Entresto was held due to acute kidney injury On home statin, carvedilol Home diabetic medicines are presently held, has sliding scale insulin PPI Patient and his are fearful of him having a stroke off of Eliquis which is understandable. I again reviewed that in the face of bleeding and significantly low hemoglobin the risk of continuing the Eliquis is enough presently to hold in the short-term but that goal is ultimately to get him back on it Cardiogram has been done this hospital stay I have ordered a carotid ultrasound to facilitate further plans around anticoagulation and other management Discussed with Dr. Londono plan for endoscopy it was okay to proceed Telemetry monitoring Other home medications as ordered Patient's Maria R who can be reached at [phone]. She is in the [place] area now from [place]. Supportive care otherwise Attestations Medical Necessity Statement*: Requires ongoing inpatient stay while we continue to evaluate source of bleeding and manage chronic medical conditions as noted above. At high risk of clinical decline secondary to comorbid conditions Time Spent in Patient Care: Greater than 35 minutes (>than 50% of time spent in counselling and/or direct pt care on unit). 50 minutes in total time with the predominant portion of this time spent talking to the patient and his as well as to Dr. Londono and Dr. Fields to arrange plan of care Coding Level of Care Code Acute Collision Estimator for [facility] Fwd Diagnoses Severe anemia D64.9 Diverticula of colon K57.30 Chronic anticoagulation Z79.01 Acute kidney injury N17.9 CHF (congestive heart failure) I50.22 Heart failure type: systolic Heart failure chronicity: chronic CAD (coronary artery disease) I25.10 Coronary Disease-Associated Artery/Lesion type: [place] artery [place] vs. transplanted heart: [place] heart Associated angina: without angina Type 2 diabetes mellitus E11.65; Z79.4 Diabetes mellitus rodent exterminator insulin use: with rodent exterminator use Diabetes mellitus complication status: with hyperglycemia Hx of aortic valve replacement Z95.2 Atrial fibrillation I48.21 Atrial fibrillation type: permanent CVA (cerebral vascular accident) I63.411 CVA mechanism: embolism Precerebral and cerebral artery: middle cerebral artery Laterality of affected vessel: right Hypertension I10 Hypertension type: unspecified Dyslipidemia E78.5
[2020-04-02] MEDS: bisacodyl 5 mg Tablet 15 MG PO (19:36)
[2020-04-02] MEDS: magnesium citrate Btl 296 mL 150 ML PO ×2 (19:37→23:06)
--- NOTE | 2020-04-02 19:43 | PC.NURSE ---
Received report from Adenike Ramirez RN. Patient lying in bed with eyes closed. Patient easily arousable. Instructed patient on bowel preparation for colonoscopy in the am. Patient verbalized complete understanding standing stating, I guess I am done sleeping for now. BSC provided for convenience. Patient denies pain, other discomforts or needs. No distress observed.
[2020-04-02 20:00] VITALS: BP 112/64; PULSE 71; RESP 18; TEMP 36.8; O2SAT 100
[2020-04-02 21:15] LABS: Glucose Point of Care 243 mg/dL (70-110)
[2020-04-02] MEDS: potassium chloride ER 10 mEq Tablet 20 MEQ PO (23:07)
[2020-04-02] MEDS: bisacodyl 5 mg Tablet 10 MG PO (23:08)
[2020-04-03] VITALS (12 sets, daily range): BP systolic 91–139; BP diastolic 55–86; PULSE 69–81; RESP 15–18; TEMP 36.7–36.9; O2SAT 94–99
--- NOTE | 2020-04-03 00:54 | PC.NURSE ---
Patient administered stool prep as ordered. Patient has had very large watery BM that is brown with streaks of bright red blood. Patient denies pain or discomfort. No distress observed.
[2020-04-03 05:16] LABS: Basophils # 0.1 10^3/uL (0.0-0.1); Basophils % 0.9 %; Eosinophils # 0.2 10^3/uL (0.0-0.8); Eosinophils % 2.8 %; Hematocrit 24.1 % (42.0-52.0); Hemoglobin 6.7 g/dL (11.7-16.6); Lymphocytes # 0.9 10^3/uL (0.8-4.8); Lymphocytes % 13.8 %; Mean Corpuscular HGB Conc 27.8 g/dL (30.0-36.0); Mean Corpuscular Hemoglobin 21.9 pg (28.0-34.0); Mean Corpuscular Volume 78.8 fL (80-94); Mean Platelet Volume 11.5 fL (7.4-10.4); Monocytes # 0.9 10^3/uL (0.2-0.9); Monocytes % 13.3 %; Neutrophils # 4.5 10^3/uL (1.8-7.7); Neutrophils % 68.9 %; Nucleated Red Blood Cells % 0 %; Platelet Count 218 10^3/cmm (130-400); Red Blood Count 3.06 10^6/uL (4.1-5.3); Red Cell Distribution Width 19.5 % (12.1-15.1); White Blood Count 6.5 10^3/uL (4.0-10.0)
[2020-04-03 06:19] LABS: Glucose Point of Care 128 mg/dL (70-110)
--- NOTE | 2020-04-03 08:19 | P.CONIM_ITS ---
Providers/Reason For Consult Consulting Physican/Specialty*: Internal medicine/endoscopy Reason for Consult*: Anemia due to GI blood loss. Requesting Physcian: Marlys Castellanos MD Attending Physician: Marlys Castellanos MD History of Present Illness History of Present Illness Abhay Varghese is a 69 year old male who was admitted for volume overload. His hospitalist and cardiology teams are administering to this. He was noted to be particularly anemic on admission. He has been given 3 units of blood to alleviate his hemoglobin of 5.6 on admission, however he is only up to 6.7 today. He admits to having bright red blood per rectum over the last 2 months. He he was on Eliquis at the time his Eliquis has been stopped however. Also his aspirin has been stopped. I am asked to investigate his GI blood loss with endoscopy. Review of Systems General: Reports: 10 or more systems reviewed and unremarkable except in HPI and below Meds/Allergies Home Medications and Allergies Home Medications Medication Instructions Recorded Confirmed Last Taken Type apixaban 5 mg tablet 5 mg PO BID 03/31/20 03/31/20 03/31/20 History aspirin 81 mg tablet,delayed 81 mg PO DAILY 03/31/20 03/31/20 03/31/20 History release carvedilol 12.5 mg tablet 12.5 mg PO BID 03/31/20 03/31/20 03/31/20 History duloxetine 30 mg capsule,delayed 60 mg PO DAILY cap 03/31/20 03/31/20 03/31/20 History release empagliflozin 10 mg tablet 10 mg PO DAILY 30 Days #30 tab 03/31/20 03/31/20 Unkn own Rx escitalopram oxalate 10 mg PO DAILY 03/31/20 03/31/20 03/31/20 History metformin 1,000 mg tablet 1,000 mg PO BID 03/31/20 03/31/20 03/31/20 History pantoprazole 40 mg tablet,delayed 40 mg PO DAILY 03/31/20 03/31/20 03/31/20 History release rosuvastatin 20 mg tablet 20 mg PO DAILY 03/31/20 03/31/20 03/31/20 History sacubitril 24 mg-valsartan 26 mg 1 tab PO BID 03/31/20 03/31/20 03/31/20 History tablet torsemide 100 mg tablet 100 mg PO DAILY #90 tab 03/31/20 03/31/20 03/31/20 Rx tramadol 37.5 mg-acetaminophen 325 1 tab PO BID PRN 03/31/20 03/31/20 03/31/20 History mg tablet Allergies Allergy/AdvReac Type Severity Reaction Status Date / Time No Known Allergies Allergy Unverified 03/31/20 14:13 Current Medications Current Medications Generic Name Dose Route Start Last Admin Trade Name Derrick PRN Reason Stop Dose Admin Atorvastatin Calcium 80 mg 04/01/20 09:00 04/02/20 09:08 Lipitor PO 80 mg DAILY [facility] Administration Carvedilol 12.5 mg 04/01/20 09:00 04/02/20 17:43 Coreg PO 12.5 mg BID [facility] Administration Duloxetine HCl 60 mg 04/01/20 09:00 04/02/20 09:08 Cymbalta PO 60 mg DAILY [facility] Administration Escitalopram Oxalate 10 mg 04/02/20 09:00 04/02/20 09:09 Lexapro PO 10 mg DAILY [facility] Administration Furosemide 40 mg 04/02/20 00:00 04/02/20 23:08 Lasix IVP 40 mg Q8H [facility] Administration Insulin Aspart 0 unit 04/01/20 21:00 04/02/20 23:07 Novolog SUBCUT 3 unit BEDTIME [facility] Administration Protocol Insulin Aspart 0 unit 04/01/20 12:00 04/03/20 07:15 Novolog SUBCUT Not Given TIDWM [facility] Protocol Pantoprazole Sodium 40 mg 04/01/20 09:00 04/02/20 17:44 Protonix IVP 40 mg BID [facility] Administration Potassium Chloride 20 meq 04/02/20 20:45 04/02/20 23:07 Klor-Con 10 PO 20 meq BID [facility] Administration Senna/Docusate Sodium 2 tab 04/02/20 18:00 04/02/20 17:43 Senna-S PO 2 tab BID [facility] Administration Torsemide 100 mg 04/01/20 09:00 04/01/20 10:00 Demadex PO 100 mg DAILY [facility] Administration PFSH Acute PFSH: Medical History Atrial fibrillation Bilateral carotid artery stenosis CAD (coronary artery disease) CHF (congestive heart failure) EF ~30% CVA (cerebral vascular accident) prior to cardiac surgery 2018, Left MCA, 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 Diabetes Dyslipidemia Endocarditis Hypertension ICD (implantable cardioverter-defibrillator) in place possibly [facility] device Ischemic cardiomyopathy TIA (transient ischemic attack) Type 2 diabetes mellitus A1c 6.30 March 2020 Surgical History 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 H/O carotid endarterectomy Hx of aortic valve replacement bioprosthetic, 2012 Hx of CABG 1998, 5V Family History Other CAD (coronary artery disease) Cancer Chronic kidney disease (CKD) Diabetes Family history of premature coronary artery disease Hyperlipidemia Hypertension Stroke Social History Smoking and tobacco status: former smoker Alcohol intake: current Alcohol intake frequency: holidays/special occasions only Desire information about substance/drug rehabilitation?: No Housing: House Vitals/I&O/Wt Last Vital Signs Temp 98.3 F 04/03/20 04:50 Pulse 70 04/03/20 04:50 Resp 16 04/03/20 04:50 BP 91/57 04/03/20 04:50 Pulse Ox 94 04/03/20 04:50 04/02/20 04/03/20 04/03/20 22:59 06:59 14:59 Intake Total 780 / 1260 150 / 1410 Output Total 700 / 1400 Balance 80 / -140 150 / 10 Physical Exam Const: COMMON NORMALS: no acute distress, average body habitus, patient oriented x3, no limitations, healthy appearing, alert and well nourished Resp: COMMON NORMALS: normal respiratory effort, No retractions, No use of accessory muscles, clear to auscultation bilaterally and percussion normal AUSCULTATION: clear to auscultation bilaterally PERCUSSION: percussion normal GI: COMMON NORMALS: Normal to inspection, nondistended, normoactive bowel sounds present, Soft to palpation, non-tender, No hepatosplenomegaly present, no masses and no bruits PALPATION: Yes Soft to palpation and Yes No hepatosplenomegaly present RECTAL EXAM: Yes deferred (Colonoscopy pending) Neuro: COMMON NORMALS: patient oriented x3 SENSORIUM/ORIENTATION: Yes alert A&P Assessment and plan (1) Microcytic anemia: Status: Acute (2) Lower GI bleed: But the sound of it this is where his bleeding source is. We will be thorough and do an EGD as well since he is not a benign surgical risk. Putting him to sleep once would be the best option. We will proceed with EGD and colonoscopy this morning as he was prepped overnight. Status: Acute Coding Level of Care Code Acute Vocational Training Teacher for [facility] Fwd Exam Expanded Problem Focused Diagnoses Microcytic anemia D50.9 Lower GI bleed K92.2 Comment Please allow Elsi Young to bill this consult.
--- NOTE | 2020-04-03 08:30 | PC.NURSE ---
soap suds enema x2 given clear soap fluid returned patient tolerated well
--- NOTE | 2020-04-03 09:07 | P.PN_ITS ---
Subjective Subjective: Interval history: Patient is feeling little better. He denies any chest pain or shortness of breath. But his hemoglobin continues to drop. He is scheduled to have endoscopic studies today. Medications: Reviewed: Yes Medication Review Details: Current Medications Atorvastatin Calcium (Lipitor) 80 mg PO DAILY [facility] Last Admin: 04/02/20 09:08 Dose: 80 mg Documented by: Bisacodyl (Dulcolax) 10 mg PO DAILY PRN PRN Reason: CONSTIPATION Carvedilol (Coreg) 12.5 mg PO BID [facility] Last Admin: 04/02/20 17:43 Dose: 12.5 mg Documented by: Dextrose (D50w) 25 ml IVP ONCE PRN; Protocol PRN Reason: hypoglycemia protocol Dextrose (D50w) 50 ml IVP PRN PRN; Protocol PRN Reason: hypoglycemia protocol Duloxetine HCl (Cymbalta) 60 mg PO DAILY [facility] Last Admin: 04/02/20 09:08 Dose: 60 mg Documented by: Escitalopram Oxalate (Lexapro) 10 mg PO DAILY [facility] Last Admin: 04/02/20 09:09 Dose: 10 mg Documented by: Furosemide (Lasix) 40 mg IVP Q8H [facility] Last Admin: 04/02/20 23:08 Dose: 40 mg Documented by: Glucagon (Glucagen) 1 mg IM ONCE PRN; Protocol PRN Reason: Adult Acute Hypoglycemia Prot. Dextrose (D5w) 500 mls @ 100 mls/hr IV ONCE PRN; Protocol PRN Reason: Adult Acute Hypoglycemia Prot Insulin Aspart (Novolog) 0 unit SUBCUT BEDTIME [facility]; Protocol Last Admin: 04/02/20 23:07 Dose: 3 unit Documented by: Insulin Aspart (Novolog) 0 unit SUBCUT TIDWM [facility]; Protocol Last Admin: 04/03/20 07:15 Dose: Not Given Documented by: Non-Formulary Medication (Tramadol-Acetaminophen) 1 tab PO BID PRN PRN Reason: UNKNOWN Pantoprazole Sodium (Protonix) 40 mg IVP BID [facility] Last Admin: 04/02/20 17:44 Dose: 40 mg Documented by: Potassium Chloride (Klor-Con 10) 20 meq PO BID [facility] Last Admin: 04/02/20 23:07 Dose: 20 meq Documented by: Senna/Docusate Sodium (Senna-S) 2 tab PO BID [facility] Last Admin: 04/02/20 17:43 Dose: 2 tab Documented by: Torsemide (Demadex) 100 mg PO DAILY [facility] Last Admin: 04/01/20 10:00 Dose: 100 mg Documented by: Vitals/I&O/Wt Last Vital Signs Temp 98.3 F 04/03/20 04:50 Pulse 70 04/03/20 04:50 Resp 16 04/03/20 04:50 BP 91/57 04/03/20 04:50 Pulse Ox 94 04/03/20 04:50 04/02/20 04/03/20 04/03/20 22:59 06:59 14:59 Intake Total 780 / 1260 150 / 1410 Output Total 700 / 1400 Balance 80 / -140 150 / 10 Physical Exam Narrative: EXAM NARRATIVE: GENERAL: The patient is alert and oriented times three. Not in any acute distress. Somewhat ill looking HEENT: Moderate pallor, no icterus or lymphadenopathy. NECK: Trachea appears to be central. No masses noted. No JVD or thyromegaly appreciated. No carotid bruit. RESPIRATORY: Chest is symmetrical. No intercostals muscle retraction or any accessory muscle activation. There is no chest wall tenderness. Breath sounds are heard bilaterally. Intensity the breath sounds are diminished in the bases. The ICD implantation site looks okay with no evidence of any infection BREASTS: Deferred. HEART: T the PMI could not be palpated. No other palpable precordial events. First heart sound is normal. No S3. Short systolic murmur at the left sternal border. No diastolic murmurs. No pericardial rub. ABDOMEN: No vessel pulsations or distention. No tenderness. No organomegaly appreciated. No abdominal bruit. Bowel sounds are normally heard. : Deferred. RECTAL: Deferred. LYMPHATIC: No lymphadenopathy noted in the neck or groin. EXTREMITIES: 1+ edema both lower extremities. No cyanosis. MUSCULOSKELETAL: No acute joint deformities or swelling SKIN: There are no significant scars or skin rash noted. NEUROPSYCHIATRIC: The patient is alert and oriented x3. Appears to be in a good mood. The higher functions are grossly within normal limits. No tremors or rigidity noted. Data : 04/03/20 04:11 04/02/20 04:40 A&P Assessment and plan (1) CHF (congestive heart failure): The heart failure is fairly treated at this time. Patient may continue on the Lasix. May need to consider blood transfusion again. I will be discussing this with the primary care. Status: Acute Qualifiers: Heart failure chronicity: chronic Heart failure type: systolic Qualified Code(s): I50.22 - Chronic systolic (congestive) heart failure (2) Severe anemia: The etiology of the severe anemia is not clear. Most likely the patient may have some GI bleeding. The hemoglobin seems to be dropping again. We will continue holding the Eliquis. Status: Acute (3) Ischemic cardiomyopathy: The LV ejection fraction has not significantly changed from the previous section fraction by echocardiogram in 2018. May continue on the current medications. We will carefully try to optimize the dose of the Entresto Status: Acute (4) CAD (coronary artery disease): Since the patient has no chest pain or any specific cardiac symptoms, we may hold off on any further intervention at this point. Continue on the current medications. Status: Acute Qualifiers: Associated angina: without angina Coronary Disease-Associated Artery/Lesion type: [place] artery [place] vs. transplanted heart: [place] heart Qualified Code(s): I25.10 - Atherosclerotic heart disease of [place] coronary artery without angina pectoris (5) Chronic anticoagulation: Patient has been taking the Eliquis for the last more than 2 years. Has not had any bleeding complications so far. Because of the severe anemia, and possible ongoing bleed, it would be appropriate to hold off on the Eliquis at this time. The possible risks were discussed with the patient in detail which he understood well. Status: Acute Additional A&P Information documentOther problems are Chronic kidney disease Diabetes with uncontrolled blood sugar History of CVA from carotid artery stenosis? Bilateral carotid artery disease Status post AVR x2 History of essential benign hypertension Dyslipidemia Based on the clinical progress and the results of the endoscopy studies, further recommendations will be made. Attestations Medical Necessity Statement*: Patient requires continued hospital stay for close monitoring and further management Coding Level of Care Code Acute Case Supervisor for g Fwd Diagnoses CHF (congestive heart failure) I50.22 Heart failure chronicity: chronic Heart failure type: systolic Severe anemia D64.9 Ischemic cardiomyopathy I25.5 CAD (coronary artery disease) I25.10 Associated angina: without angina Coronary Disease-Associated Artery/Lesion type: [place] artery [place] vs. transplanted heart: [place] heart Chronic anticoagulation Z79.01
--- NOTE | 2020-04-03 09:10 | PC.NURSE ---
Spoke with Dr Castellanos at [phone] via rajat in regards to patients oral medications as well as medication rounding late on laxis does instructed to place PO medications on hold until after GI procedure okayed top give lasix does now as well as IV protonix patient was not administered any PO medications prior to gi procedure; due to blood administration and patient cares this nurse was unable to place medication on hold in the MAR
[2020-04-03] MEDS: FUROsemide 10 mg/mL SDV 4mL 40 MG IVP ×3 (09:19→23:56)
[2020-04-03] MEDS: pantoprazole 40 mg SDV IVP ×2 (09:22→17:43)
[2020-04-03] MEDS: sodium chloride 0.9% (100 ml) 100 ML (10:10)
[2020-04-03] MEDS: sodium chloride 0.9% 1,000 ML 30 ML IV (11:36)
--- NOTE | 2020-04-03 11:54 | P.ANESASSM_ITS ---
Pre-Anesthetic Assessment Pre-Anesthetic Assessment: Height/Weight: Height 1.85 m Weight 118.841 kg Temp Pulse Resp BP Pulse Ox 98.3 F 70 18 131/81 96 04/03/20 11:15 04/03/20 11:15 04/03/20 11:15 04/03/20 11:15 04/03/20 11:15 Preop Diagnosis: Anemia due to GI blood loss Proposed Procedure: Operation Date: 04/03/20 11:15 Proposed Procedures p EGD(Not Applicable) - Teo Fields MD s Colonoscopy(Not Applicable) - Teo Fields MD Was Beta Roya taken within 24 hours: Yes Social: Social History: No alcohol and No tobacco Exam: Pre-Anes Outpt Exam: alert and oriented x 3 Additional Exam Findings (including area of procedure): Cardiac Exam shows mild systolic murmur; lungs show coarse bibsilar rales Airway: Submandibular: WNL Cervical ROM: WNL MP: 1 Dentition: Partials Pulmonary: Pulmonary: COPD, FRANCO and SOB CV/HEM: CV/HEM: Anemia, CAD, CHF, HTN, NE and Murmur : : None reported Hepatic: Hepatic: None reported GI: Comments: Acute GI Bleed Metabolic: Metabolic: DM Musc/skel: Musc/skel: None reported Neuropsych: Neuropsych: None reported Anesthetic Plan: ASA status: 4 Anesthesia: MAC Meds/Allergies Current Medications: Current Medications Generic Name Dose Route Start Last Admin Trade Name Freq PRN Reason Stop Dose Admin Atorvastatin Calci um 80 mg 04/01/20 09:00 04/02/20 09:08 Lipitor PO 80 mg DAILY [facility] Administration Carvedilol 12.5 mg 04/01/20 09:00 04/02/20 17:43 Coreg PO 12.5 mg BID [facility] Administration Duloxetine HCl 60 mg 04/01/20 09:00 04/02/20 09:08 Cymbalta PO 60 mg DAILY [facility] Administration Escitalopram Oxala te 10 mg 04/02/20 09:00 04/02/20 09:09 Lexapro PO 10 mg DAILY [facility] Administration Furosemide 40 mg 04/02/20 00:00 04/03/20 09:19 Lasix IVP 40 mg Q8H [facility] Administration Sodium Chloride 1,000 mls @ 30 ml s/hr 04/03/20 11:30 04/03/20 11:36 Sodium Chloride 0.9% IV 30 mls/hr .Q24H [facility] Administration Insulin Aspart 0 unit 04/01/20 21:00 04/02/20 23:07 Novolog SUBCUT 3 unit BEDTIME [facility] Administration Protocol Insulin Aspart 0 unit 04/01/20 12:00 04/03/20 07:15 Novolog SUBCUT Not Given TIDWM [facility] Protocol Pantoprazole Sodiu m 40 mg 04/01/20 09:00 04/03/20 09:22 Protonix IVP 40 mg BID [facility] Administration Potassium Chloride 20 meq 04/02/20 20:45 04/02/20 23:07 Klor-Con 10 PO 20 meq BID [facility] Administration Senna/Docusate Sod ium 2 tab 04/02/20 18:00 04/02/20 17:43 Senna-S PO 2 tab BID [facility] Administration Torsemide 100 mg 04/01/20 09:00 04/01/20 10:00 Demadex PO 100 mg DAILY [facility] Administration PFSH Anesthesia PFSH: Medical History Atrial fibrillation Bilateral carotid artery stenosis CAD (coronary artery disease) CHF (congestive heart failure) EF ~30% CVA (cerebral vascular accident) prior to cardiac surgery 2017, Left MCA, 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 Diabetes Dyslipidemia Endocarditis Hypertension ICD (implantable cardioverter-defibrillator) in place possibly St Ho device Ischemic cardiomyopathy TIA (transient ischemic attack) Type 2 diabetes mellitus A1c 6.30 March 2020 Surgical History 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 H/O carotid endarterectomy Hx of aortic valve replacement bioprosthetic, 2012 Hx of CABG 1998, 5V Family History Other CAD (coronary artery disease) Cancer Chronic kidney disease (CKD) Diabetes Family history of premature coronary artery disease Hyperlipidemia Hypertension Stroke Social History Smoking and tobacco status: former smoker Alcohol intake: current Alcohol intake frequency: holidays/special occasions only Desire information about substance/drug rehabilitation?: No Housing: House Data Anesthesia CBC & Chem 7: 04/03/20 04:11 04/02/20 04:40 Other Labs: Laboratory Results - last 48 hr 03/31/20 03/31/20 04/01/20 20:45 20:48 16:04 WBC RBC Hgb Hct MCV MCH MCHC RDW Plt Count MPV Neut % (Auto) Lymph % (Auto) [place] % (Auto) Eos % (Auto) Baso % (Auto) Neut # (Auto) Lymph # (Auto) [place] # (Auto) Eos # (Auto) Baso # (Auto) Nucleated RBC % (auto) Nucleated RBCs # Specimen Type Arterial Sample Site Brachial, right ABG pH 7.42 ABG pCO2 34.2 L ABG pO2 91.2 ABG HCO3 22.2 ABG Base Excess -2.1 L Edis Test N/a Hematocrit 17.1 L O2 Delivery Device Room air Practice Lead ID harkr Sodium Potassium Chloride Carbon Dioxide Anion Gap BUN Creatinine GFR Calculation Glucose POC Glucose 182 Calculated Osmolality Calcium Magnesium Blood Type A Negative Rho(D) Type Negative Antibody Screen Negative Crossmatch See Detail 04/01/20 04/01/20 04/02/20 17:35 20:13 04:40 WBC 7.8 RBC 3.20 L Hgb 7.4 L 7.4 L Hct 26.0 L 25.6 L MCV 80.0 MCH 23.1 L MCHC 28.9 L RDW 18.9 H Plt Count 255 MPV 11.8 H Neut % (Auto) 69.9 Lymph % (Auto) 14.3 [place] % (Auto) 12.1 Eos % (Auto) 2.3 Baso % (Auto) 1.0 Neut # (Auto) 5.4 Lymph # (Auto) 1.1 [place] # (Auto) 0.9 Eos # (Auto) 0.2 Baso # (Auto) 0.1 Nucleated RBC % (auto) 0.3 Nucleated RBCs # 0.0 Specimen Type Sample Site ABG pH ABG pCO2 ABG pO2 ABG HCO3 ABG Base Excess Edis Test Hematocrit O2 Delivery Device Practice Lead ID Sodium Potassium Chloride Carbon Dioxide Anion Gap BUN Creatinine GFR Calculation Glucose POC Glucose 272 Calculated Osmolality Calcium Magnesium Blood Type Rho(D) Type Antibody Screen Crossmatch 04/02/20 04/02/20 04/02/20 04:40 06:21 10:45 WBC RBC Hgb Hct MCV MCH MCHC RDW Plt Count MPV Neut % (Auto) Lymph % (Auto) [place] % (Auto) Eos % (Auto) Baso % (Auto) Neut # (Auto) Lymph # (Auto) [place] # (Auto) Eos # (Auto) Baso # (Auto) Nucleated RBC % (auto) Nucleated RBCs # Specimen Type Sample Site ABG pH ABG pCO2 ABG pO2 ABG HCO3 ABG Base Excess Edis Test Hematocrit O2 Delivery Device Practice Lead ID Sodium 136 Potassium 4.9 Chloride 95 L Carbon Dioxide 27 Anion Gap 18.9 BUN 32 H Creatinine 1.9 H GFR Calculation 35.5 L Glucose 143 H POC Glucose 143 246 Calculated Osmolality 282 L Calcium 9.8 Magnesium 1.7 Blood Type Rho(D) Type Antibody Screen Crossmatch 04/02/20 04/02/20 04/03/20 16:28 20:20 04:11 WBC 6.5 RBC 3.06 L Hgb 6.7 L Hct 24.1 L MCV 78.8 L MCH 21.9 L MCHC 27.8 L RDW 19.5 H Plt Count 218 MPV 11.5 H Neut % (Auto) 68.9 Lymph % (Auto) 13.8 [place] % (Auto) 13.3 Eos % (Auto) 2.8 Baso % (Auto) 0.9 Neut # (Auto) 4.5 Lymph # (Auto) 0.9 [place] # (Auto) 0.9 Eos # (Auto) 0.2 Baso # (Auto) 0.1 Nucleated RBC % (auto) 0 Nucleated RBCs # 0.0 Specimen Type Sample Site ABG pH ABG pCO2 ABG pO2 ABG HCO3 ABG Base Excess Edis Test Hematocrit O2 Delivery Device Practice Lead ID Sodium Potassium Chloride Carbon Dioxide Anion Gap BUN Creatinine GFR Calculation Glucose POC Glucose 129 243 Calculated Osmolality Calcium Magnesium Blood Type Rho(D) Type Antibody Screen Crossmatch 04/03/20 06:07 WBC RBC Hgb Hct MCV MCH MCHC RDW Plt Count MPV Neut % (Auto) Lymph % (Auto) [place] % (Auto) Eos % (Auto) Baso % (Auto) Neut # (Auto) Lymph # (Auto) [place] # (Auto) Eos # (Auto) Baso # (Auto) Nucleated RBC % (auto) Nucleated RBCs # Specimen Type Sample Site ABG pH ABG pCO2 ABG pO2 ABG HCO3 ABG Base Excess Edis Test Hematocrit O2 Delivery Device Practice Lead ID Sodium Potassium Chloride Carbon Dioxide Anion Gap BUN Creatinine GFR Calculation Glucose POC Glucose 128 Calculated Osmolality Calcium Magnesium Blood Type Rho(D) Type Antibody Screen Crossmatch Cardiac Studies: No Data to Display
[2020-04-03] MEDS: EPINEPHrine 1 mg/mL INJ (12:42)
--- NOTE | 2020-04-03 13:15 | PC.NURSE ---
patient back from Gi procedure Vitals stable patient denies any pain; alert and oriented will continue to monitor
--- NOTE | 2020-04-03 14:55 | PC.NURSE ---
Attempted to contact Physicians in regards to medications that was held prior to procedure; due to some of them being BID and so close to next admin time will await further instructions before administering any medication; patients VS are stable patient denies any complaints at this time will continue to monitor
[2020-04-03 17:06] LABS: Glucose Point of Care 158 mg/dL (70-110)
--- NOTE | 2020-04-03 17:13 | PC.NURSE ---
Discussed medications with Dr Castellanos that had been held prior to GI procedure instructions to give Cymbalta daily dose, lexapro daily dose, NON admin am pota dose, NON admin am and pm senna dose. OK to give late lasix does now medication rounding late due to patient sleeping soundly. Dr Castellanos changed Coreg order to be given Q12H will give now. Patient has remained stable Vs WNL
[2020-04-03] MEDS: duloxetine 30 mg Capsule 60 MG PO (17:20)
[2020-04-03] MEDS: escitalopram 10 mg Tablet PO (17:20)
[2020-04-03] MEDS: potassium chloride ER 10 mEq Tablet 20 MEQ PO (17:20)
[2020-04-03] MEDS: carvedilol 12.5 mg Tablet PO (17:20)
--- NOTE | 2020-04-03 17:47 | PM.PN ---
Subjective Subjective: Interval history: Patient is still doing colon prep with recent enema. He has tolerated the prep well considering his comorbid conditions. Breathing okay. Did have more bright red blood with stools. Hemoglobin this morning is down. Vitals/I&O/Wt Last Vital Signs Temp 98.1 F 04/03/20 16:24 Pulse 72 04/03/20 16:24 Resp 16 04/03/20 16:24 BP 104/55 04/03/20 16:24 Pulse Ox 96 04/03/20 12:47 04/03/20 04/03/20 04/03/20 06:59 14:59 22:59 Intake Total 150 / 1410 0 / 0 Output Total 525 / 525 Balance 150 / 10 -525 / -525 Physical Exam Const: OTHER: Alert, oriented x3, cooperative, less ill-appearing HENMT: OTHER: Normocephalic atraumatic Neck/C-Spine: OTHER: Supple Resp: OTHER: Clear to auscultation bilaterally today Cardio: OTHER: Regular rhythm GI: OTHER: Abdomen soft, nontender, positive bowel sounds Extremity: NARRATIVE EXTREMITY EXAM: No significant change in lower extremity edema Neuro: OTHER: Face symmetric, speech clear, moves all extremities Psych: OTHER: Normal affect Skin: OTHER: Chronic stasis changes are unchanged Data : 04/03/20 17:49 04/02/20 04:40 A&P Assessment and plan (1) Severe anemia: Symptomatic, iron deficiency with reported intermittent GI losses with bright red blood. I suspect he has had a slow drop in his hemoglobin and that there is a chronic component to this in addition to possible acute process. I was able to confirm that his hemoglobin in November of this year was 10.7. Concerning factor is that he is on chronic anticoagulation. He has received a total of 3 units of packed with hemoglobin dropping again after more bright red blood passage Status: Acute (2) Diverticula of colon: Suspected diverticular bleed at admission, bright red blood noted today with bowel movement Status: Acute (3) Chronic anticoagulation: With Eliquis which is now held, on due to history of A. fib and prior strokes, carotid endarterectomy Status: Acute (4) Acute kidney injury: Baseline creatinine is 1.4 from November of this year. May have progressed to a new baseline. Status: Acute (5) CHF (congestive heart failure): Ejection fraction around 30%. He is normally on Entresto which is been held due to renal function presently. Chronically managed with torsemide. Receiving Lasix here Status: Acute Qualifiers: Heart failure type: systolic Heart failure chronicity: chronic Qualified Code(s): I50.22 - Chronic systolic (congestive) heart failure (6) CAD (coronary artery disease): With prior bypass surgery. Chronically on aspirin, carvedilol and statin Status: Acute Qualifiers: Coronary Disease-Associated Artery/Lesion type: [place] artery [place] vs. transplanted heart: [place] heart Associated angina: without angina Qualified Code(s): I25.10 - Atherosclerotic heart disease of [place] coronary artery without angina pectoris (7) Type 2 diabetes mellitus: Chronically on metformin and was started on Jardiance I believe recently. A1c 6.30 March 2020 Status: Acute Qualifiers: Diabetes mellitus superintendent container terminal insulin use: with superintendent container terminal use Diabetes mellitus complication status: with hyperglycemia Qualified Code(s): E11.65 - Type 2 diabetes mellitus with hyperglycemia; Z79.4 - buttermaker continuous churn (current) use of insulin (8) Hx of aortic valve replacement: With aortic root replacement. Suspected to be bioprosthetic but not confirmed at this point in time. Status: Acute (9) Atrial fibrillation: Chronic Status: Acute Qualifiers: Atrial fibrillation type: permanent Qualified Code(s): I48.21 - Permanent atrial fibrillation (10) CVA (cerebral vascular accident): Around the time of one of his prior heart surgeries. Has had carotid endarterectomy. Previously involved left MCA. Minor residual visual field changes. Patient is fearful of having another stroke, especially if he has to come off of anticoagulation. Status: Acute Qualifiers: CVA mechanism: embolism Precerebral and cerebral artery: middle cerebral artery Laterality of affected vessel: right Qualified Code(s): I63.411 - Cerebral infarction due to embolism of right middle cerebral artery (11) Hypertension: Presently controlled Status: Acute Qualifiers: Hypertension type: unspecified Qualified Code(s): I10 - Essential (primary) hypertension (12) Dyslipidemia: Chronically on statin Status: Acute Additional A&P Information Mild transaminase elevation Mild lipase elevation Elevated troponin at baseline without significant delta Normal TSH His additional unit of packed red blood cells For endoscopy today Dr. Londono is following from a cardiac standpoint Currently on IV Lasix Entresto was held due to acute kidney injury On home statin, carvedilol Home diabetic medicines are presently held, has sliding scale insulin PPI Depending on findings from endoscopy will have to talk about resumption of aspirin and Eliquis Carotid ultrasound is ordered to help with determination of plans regarding anticoagulation Echocardiogram has been done this hospital stay Telemetry monitoring continues Other home medications as ordered Patient's Maria R who can be reached at [phone]. She is in the [place] area now from [place]. We will update her once I have endoscopy results Supportive care otherwise Attestations Medical Necessity Statement*: Going inpatient management for endoscopy and adjustments other medications in light of CHF, acute kidney injury and other medical conditions as noted above. Coding Level of Care Code Acute Mechanical Engineering Draftsperson for Chg Fwd Diagnoses Severe anemia D64.9 Diverticula of colon K57.30 Chronic anticoagulation Z79.01 Acute kidney injury N17.9 CHF (congestive heart failure) I50.22 Heart failure type: systolic Heart failure chronicity: chronic CAD (coronary artery disease) I25.10 Coronary Disease-Associated Artery/Lesion type: [place] artery [place] vs. transplanted heart: [place] heart Associated angina: without angina Type 2 diabetes mellitus E11.65; Z79.4 Diabetes mellitus superintendent container terminal insulin use: with superintendent container terminal use Diabetes mellitus complication status: with hyperglycemia Hx of aortic valve replacement Z95.2 Atrial fibrillation I48.21 Atrial fibrillation type: permanent CVA (cerebral vascular accident) I63.411 CVA mechanism: embolism Precerebral and cerebral artery: middle cerebral artery Laterality of affected vessel: right Hypertension I10 Hypertension type: unspecified Dyslipidemia E78.5
[2020-04-03 18:16] LABS: Hematocrit 28.5 % (42.0-52.0); Hemoglobin 8.2 g/dL (11.7-16.6)
--- NOTE | 2020-04-03 20:02 | PC.NURSE ---
Report received from FAYE Jeong. No complaints of pain. REsting in bed. No signs or symptoms of distress noted.
[2020-04-03 20:51] LABS: Glucose Point of Care 176 mg/dL (70-110)
--- NOTE | 2020-04-03 23:15 | USCV_ITS ---
Abhay Varghese Age: 69 Gender: M : 1950 Exam Date: 04/03/2020 06:59 Ordering Phys: Marlys Castellanos MD Technologist: Vivian Sears Exam Location: [facility] Indication: GI BLEED Risk Factors: Previous Vascular Surgery: Right Brachial BP: / Left Brachial BP: / Right Left Velocity (cm/s) Spectral Plaque Velocity (cm/s) Spectral Plaque Syst/Diast Broadening Syst/Diast Broadening 89.30/ 20.90 Prox CCA 27.30 / 7.00 79.40/ 16.50 Mid CCA 22.30 / 8.40 73.90/ 30.90 Distal CCA 21.20 / 5.20 59.10/ 26.90 Prox ICA 108.50/ 31.90 51.10/ 17.40 Mid ICA 67.30 / 26.70 54.60/ 25.50 Distal ICA 36.00 / 17.40 255.30 ECA 51.70 0.75 ICA/CCA 4.86 Antegrade Vertebral Antegrade 23.60/ 14.00 cm/s 73.10/ 16.30 cm/s Tri Subclavian Tri 103.3 160.8 0 0 FINDINGS Low velocity monophasic Doppler waveform in the left common carotid artery Low velocity delayed peak and waveforms in the left distal internal carotid artery Abnormal ICA/CCA ratio suggestive on the left side Elevated velocity in the right external carotid artery Negative for the vertebral arteries bilaterally Elevated velocity in the left subclavian artery CONCLUSIONS 1. Features suggestive of high-grade stenosis in the left proximal ICA 2. Elevated velocity in the external carotid artery on the left side, suggestive of hemodynamically significant stenosis. 3. Elevated velocity in the left subclavian artery, suggest hemodynamically significant stenosis Consider CTA to further evaluate the arch vessels and the left ICA No similar previous studies are available for comparison Dr Sascha Londono MD [facility] (Electronically Signed) Final Date: 03 April 2020 17:47 S
--- NOTE | 2020-04-04 03:29 | PC.NURSE ---
Pt having more frequent ectopy on telemetry. Noted to have one run of 12 beats and 1 run of [address] Reyes notified via secure message. Read message at [phone]. Aware of labs being obtained at this time. Awaiting further orders.
[2020-04-04 03:55] LABS: Basophils # 0.1 10^3/uL (0.0-0.1); Basophils % 1.1 %; Eosinophils # 0.1 10^3/uL (0.0-0.8); Eosinophils % 1.9 %; Hematocrit 28.6 % (42.0-52.0); Hemoglobin 8.2 g/dL (11.7-16.6); Lymphocytes % 16.4 %; Mean Corpuscular HGB Conc 28.7 g/dL (30.0-36.0); Mean Corpuscular Hemoglobin 22.8 pg (28.0-34.0); Mean Corpuscular Volume 79.7 fL (80-94); Mean Platelet Volume 11.3 fL (7.4-10.4); Monocytes # 0.9 10^3/uL (0.2-0.9); Monocytes % 15.1 %; Neutrophils % 65.3 %; Nucleated Red Blood Cells % 0.3 %; Platelet Count 267 10^3/cmm (130-400); Red Blood Count 3.59 10^6/uL (4.1-5.3); Red Cell Distribution Width 19.5 % (12.1-15.1); White Blood Count 6.2 10^3/uL (4.0-10.0)
[2020-04-04 04:38] LABS: Alanine Aminotransferase 55 U/L (0-41); Albumin Level 4.1 g/dL (3.5-5.2); Alkaline Phosphatase 132 IU/L (40-130); Anion Gap 18.3 (5-19); Aspartate Amino Transferase 40 U/L (0-40); Blood Urea Nitrogen 25 mg/dL (8-23); Calcium 9.8 mg/dL (8.5-10.5); Carbon Dioxide 29 mmol/L (22-29); Chloride 95 mmol/L (98-107); Globulin 3.3 g/dL (1.3-4.6); Glomerular Filtration Rate 46.7 mL/min (90-130); Glucose 136 mg/dL (65-115); Magnesium 1.9 mg/dL (1.7-2.3); Osmolality Calculated 285 mOsm/kg (285-295); Phosphorus 4.1 mg/dL (2.5-4.5); Potassium 4.3 mmol/L (3.5-5.1); Sodium 138 mmol/L (136-145); Total Bilirubin 1.5 mg/dL (0.15-1.2); Total Protein 7.4 g/dL (6.6-8.7)
[2020-04-04 04:39] VITALS: BP 138/70; PULSE 71; RESP 18; TEMP 36.7; O2SAT 97
[2020-04-04] MEDS: carvedilol 12.5 mg Tablet PO ×3 (04:54→18:38)
--- NOTE | 2020-04-04 05:03 | PC.NURSE ---
Pt restomg comfortably in bed. No complaints during this shift. Remains on IV lasix per orders. Hgb remains stable. No further changes in assessment/plan of care at this time.
[2020-04-04 06:14] LABS: Glucose Point of Care 137 mg/dL (70-110)
--- NOTE | 2020-04-04 07:21 | PC.NURSE ---
PATIENT SITTING UP ON SIDE OF BED ; PATIENT DENIES ANY COMPLAINTS AT THIS TIME ; VSS
[2020-04-04 07:37] VITALS: BP 113/66; PULSE 71; RESP 23; TEMP 37.1; O2SAT 95
[2020-04-04 08:21] VITALS: BP 113/66; PULSE 72; RESP 19; O2SAT 95
[2020-04-04] MEDS: FUROsemide 10 mg/mL SDV 4mL 40 MG IVP (08:49)
[2020-04-04] MEDS: escitalopram 10 mg Tablet PO (08:49)
[2020-04-04] MEDS: pantoprazole 40 mg SDV IVP ×2 (08:49→18:39)
[2020-04-04] MEDS: potassium chloride ER 10 mEq Tablet 20 MEQ PO ×2 (08:49→18:39)
[2020-04-04] MEDS: atorvastatin 40 mg Tablet 80 MG PO (08:50)
[2020-04-04] MEDS: duloxetine 30 mg Capsule 60 MG PO (08:50)
[2020-04-04] MEDS: sennosides-docusate Tablet 2 TAB PO ×2 (08:50→18:39)
--- NOTE | 2020-04-04 09:54 | P.PN_ITS ---
Subjective Subjective: Interval history: Patient is feeling okay. 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 Patient's hemoglobin seems to be going up today. He denies any abdominal pain. No hematemesis or melena. Overall status seems to be improving. Medications: Reviewed: Yes Medication Review Details: Current Medications Atorvastatin Calcium (Lipitor) 80 mg PO DAILY [facility] Last Admin: 04/04/20 08:50 Dose: 80 mg Documented by: Bisacodyl (Dulcolax) 10 mg PO DAILY PRN PRN Reason: CONSTIPATION Carvedilol (Coreg) 12.5 mg PO Q12H [facility] Last Admin: 04/04/20 04:54 Dose: 12.5 mg Documented by: Dextrose (D50w) 25 ml IVP ONCE PRN; Protocol PRN Reason: hypoglycemia protocol Dextrose (D50w) 50 ml IVP PRN PRN; Protocol PRN Reason: hypoglycemia protocol Duloxetine HCl (Cymbalta) 60 mg PO DAILY [facility] Last Admin: 04/04/20 08:50 Dose: 60 mg Documented by: Escitalopram Oxalate (Lexapro) 10 mg PO DAILY [facility] Last Admin: 04/04/20 08:49 Dose: 10 mg Documented by: Furosemide (Lasix) 40 mg IVP Q8H [facility] Last Admin: 04/04/20 08:49 Dose: 40 mg Documented by: Glucagon (Glucagen) 1 mg IM ONCE PRN; Protocol PRN Reason: Adult Acute Hypoglycemia Prot. Dextrose (D5w) 500 mls @ 100 mls/hr IV ONCE PRN; Protocol PRN Reason: Adult Acute Hypoglycemia Prot Sodium Chloride (Sodium Chloride 0.9%) 1,000 mls @ 30 mls/hr IV .Q24H [facility] Last Admin: 04/03/20 11:36 Dose: 30 mls/hr Documented by: Insulin Aspart (Novolog) 0 unit SUBCUT BEDTIME [facility]; Protocol Last Admin: 04/03/20 21:32 Dose: 1 unit Documented by: Insulin Aspart (Novolog) 0 unit SUBCUT TIDWM [facility]; Protocol Last Admin: 04/04/20 08:46 Dose: Not Given Documented by: Non-Formulary Medication (Tramadol-Acetaminophen) 1 tab PO BID PRN PRN Reason: UNKNOWN Pantoprazole Sodium (Protonix) 40 mg IVP BID [facility] Last Admin: 04/04/20 08:49 Dose: 40 mg Documented by: Potassium Chloride (Klor-Con 10) 20 meq PO BID [facility] Last Admin: 04/04/20 08:49 Dose: 20 meq Documented by: Senna/Docusate Sodium (Senna-S) 2 tab PO BID [facility] Last Admin: 04/04/20 08:50 Dose: 2 tab Documented by: Vitals/I&O/Wt Last Vital Signs Temp 98.7 F 04/04/20 07:37 Pulse 72 04/04/20 08:21 Resp 19 H 04/04/20 08:21 BP 113/66 04/04/20 08:21 Pulse Ox 95 04/04/20 08:21 04/03/20 04/04/20 04/04/20 22:59 06:59 14:59 Intake Total 740 / 740 500 / 1240 960 / 960 Output Total 1800 / 2325 Balance 740 / 215 -1300 / -1085 960 / 960 Physical Exam Narrative: EXAM NARRATIVE: GENERAL: The patient is alert and oriented times three. Not in any acute distress. Somewhat ill looking HEENT: Moderate pallor, no icterus or lymphadenopathy. NECK: Trachea appears to be central. No masses noted. No JVD or thyromegaly appreciated. No carotid bruit. RESPIRATORY: Chest is symmetrical. No intercostals muscle retraction or any accessory muscle activation. There is no chest wall tenderness. Breath sounds are heard bilaterally. Intensity the breath sounds are diminished in the bases. The ICD implantation site looks okay with no evidence of any infection BREASTS: Deferred. HEART: T the PMI could not be palpated. No other palpable precordial events. First heart sound is normal. No S3. Short systolic murmur at the left sternal border. No diastolic murmurs. No pericardial rub. ABDOMEN: No vessel pulsations or distention. No tenderness. No organomegaly appreciated. No abdominal bruit. Bowel sounds are normally heard. : Deferred. RECTAL: Deferred. LYMPHATIC: No lymphadenopathy noted in the neck or groin. EXTREMITIES: 1+ edema both lower extremities. No cyanosis. MUSCULOSKELETAL: No acute joint deformities or swelling SKIN: There are no significant scars or skin rash noted. NEUROPSYCHIATRIC: The patient is alert and oriented x3. Appears to be in a good mood. The higher functions are grossly within normal limits. No tremors or rigidity noted. Data : 04/04/20 03:22 04/04/20 03:22 A&P Assessment and plan (1) CHF (congestive heart failure): The heart failure is fairly treated at this time. I may discontinue the IV Lasix. We will start him on torsemide 100 mg p.o. daily. May continue other medications as it is. Status: Acute Qualifiers: Heart failure chronicity: chronic Heart failure type: systolic Qualified Code(s): I50.22 - Chronic systolic (congestive) heart failure (2) Severe anemia: Most likely related to the GI bleed. Status post endoscopic clipping of the AV malformation. The hemoglobin seems to be stable Status: Acute (3) Ischemic cardiomyopathy: The LV ejection fraction has not significantly changed from the previous section fraction by echocardiogram in 2018. May continue on the current medications. Entresto was not restarted during this hospital admission. I may go ahead and start him back on the Entresto. Will try to optimize the dose as an outpatient. Status: Acute (4) CAD (coronary artery disease): Since the patient has no chest pain or any specific cardiac symptoms, we may hold off on any further intervention at this point. Continue on the current medications. Status: Acute Qualifiers: Associated angina: without angina Coronary Disease-Associated Artery/Lesion type: [place] artery [place] vs. transplanted heart: [place] heart Qualified Code(s): I25.10 - Atherosclerotic heart disease of [place] coronary artery without angina pectoris (5) Chronic anticoagulation: Because of the GI bleed, as per recommendation, we may hold off on the Eliquis for a week. Consider putting him on Lovenox, while being off the Eliquis, because of the high thromboembolic risk? Status: Acute (6) Carotid artery stenosis with cerebral infarction: Patient seems to have a hemodynamically significant stenosis in the left ICA. Currently he had surgery on the same side in the past. For further evaluation of the carotid stenosis, a patient requires a CTA. It might be appropriate to do this while the patient is in the hospital. His kidney function is a concern. But the creatinine seems to be coming down. We will be discussing this with the Dr. Castellanos Status: Acute Additional A&P Information documentOther problems are Chronic kidney disease Diabetes with uncontrolled blood sugar History of CVA from carotid artery stenosis? Bilateral carotid artery disease Status post AVR x2 History of essential benign hypertension Dyslipidemia I will discuss with Dr. Fields about anticoagulation with heparin or Lovenox at home, while being off the Eliquis. Attestations Medical Necessity Statement*: Patient requires continued hospital stay for close monitoring and further management Coding Level of Care Code Acute Order Entry Representative for Tyrong Fwd Diagnoses CHF (congestive heart failure) I50.22 Heart failure chronicity: chronic Heart failure type: systolic Severe anemia D64.9 Ischemic cardiomyopathy I25.5 CAD (coronary artery disease) I25.10 Associated angina: without angina Coronary Disease-Associated Artery/Lesion type: [place] artery [place] vs. transplanted heart: [place] heart Chronic anticoagulation Z79.01 Carotid artery stenosis with cerebral infarction I63.239
--- NOTE | 2020-04-04 10:40 | PC.NURSE ---
PER DR HADDAD, PLEASE ORDER MAG TAB SR 84MG BID STARTING TONIGHT AND GIVE TWO TABS THIS MORNING.
--- NOTE | 2020-04-04 10:50 | PC.SOCIAL ---
Pg 2 IMM Explained to pt Pg 2 IMM. Pt verbally understands. No questions voiced. Provided pt a copy & left on pt's bedside table. Signed, dated, & timed a copy & placed in chart.
[2020-04-04 10:52] VITALS: BP 119/68; PULSE 70; RESP 16; TEMP 36.9; O2SAT 96
[2020-04-04 11:15] LABS: Glucose Point of Care 237 mg/dL (70-110)
[2020-04-04] MEDS: magnesium lactate 84 mg Tablet 168 MG PO (11:27)
[2020-04-04 15:06] VITALS: BP 102/48; PULSE 75; RESP 12; TEMP 36.6; O2SAT 97
--- NOTE | 2020-04-04 15:33 | PC.NURSE ---
PATIENT PCP WILL BE DR ABIEL ALVAREZ SS
[2020-04-04 15:44] LABS: Glucose Point of Care 155 mg/dL (70-110)
[2020-04-04] MEDS: magnesium lactate 84 mg Tablet PO (18:39)
[2020-04-04] MEDS: sacubitril/valsartan 24-26 mg Tablet 1 EACH PO (18:39)
--- NOTE | 2020-04-04 19:01 | PM.PN ---
Subjective Subjective: Interval history: Patient did not have any further bleeding overnight. He feels better. No focal neurological symptoms to speak of. No chest pain. Breathing is okay at rest. Hemoglobin is stable this morning Patient discussed with Dr. Londono today as well as with Dr. Fields. Carotid artery ultrasound came back showing evidence of high-grade stenosis on the left in the same area where he had his carotid endarterectomy previously. He has significant risk for thromboembolic events secondary to CHF, A. fib, Valve replacement including aortic root replacement and personal history. Eliquis was stopped for bleeding present on admission. He has been off of it several days now and coming up on the time in which he could have an acute event after being off of this. There is really not an easy answer in the situation. Cardiology does feel that we need to put him on some form of anticoagulation and frozen GI bleeding standpoint ideally want to hold off on any anticoagulation as long as we can. Dr. Fields's preference was to wait a week before considering restarting Eliquis. He does not want aspirin restarted if it can be avoided but Plavix would be okay. I discussed with him about potentially starting on heparin or Lovenox. If clinical condition warrants it, he will insist if there is further episodes of bleeding--but again his recommendation is to hold off if we can. I talked to the patient and his at length together about all of this. They are both fearful of him having another stroke. Ultimately weighing the risk and benefits, decision has been made to start him back on some anticoagulation. We will simply run heparin drip at thousand units an hour without bolus. Will monitor for any recurrent bleeding at which time we will have to turn off the heparin drip. Patient and his understand the risk of bleeding as well as the risk of stroke and were both given an opportunity to ask questions which stated. In terms of further evaluation for the ultrasound findings, renal function has improved while here. GFR today is around 46 and creatinine is down to 1.5. After reviewing options with Dr. Londono, I talked with the patient and his about CTA of the neck to evaluate the left ICA stenosis more specifically to help guide treatment options. The situation is complicated by the GI bleed but having this information will help plan appropriately. I talked to patient and his about the risk of kidney injury and renal failure from contrast. Patient states that he has had contrast on several occasions with known chronic kidney disease and is done okay before. Explained that injury can occur at any time and is not necessarily going to be okay just because he has had contrast before. After reviewing the risk and benefits and the reasons for the study, decision has been made to pursue CTA of the neck. Vitals/I&O/Wt Last Vital Signs Temp 97.8 F 04/04/20 15:06 Pulse 75 04/04/20 15:06 Resp 12 04/04/20 15:06 BP 102/48 04/04/20 15:06 Pulse Ox 97 04/04/20 15:06 04/04/20 04/04/20 04/04/20 06:59 14:59 22:59 Intake Total 500 / 1240 1200 / 1200 480 / 1680 Output Total 1800 / 2325 500 / 500 500 / 1000 Balance -1300 / -1085 700 / 700 -20 / 680 Physical Exam Const: OTHER: Alert, oriented x3, cooperative HENMT: OTHER: Normocephalic atraumatic Eye: OTHER: Extraocular movements intact Neck/C-Spine: OTHER: Supple Resp: OTHER: Clear to auscultation bilaterally Cardio: OTHER: Regular rhythm GI: OTHER: Abdomen soft, nontender Extremity: NARRATIVE EXTREMITY EXAM: Some decrease in edema Neuro: OTHER: Face symmetric, speech clear, moves all extremities Psych: OTHER: Normal affect Skin: OTHER: Chronic stasis changes Data : 04/04/20 03:22 04/04/20 03:22 A&P Assessment and plan (1) Severe anemia: Symptomatic, iron deficiency with reported intermittent GI losses with bright red blood. I suspect he has had a slow drop in his hemoglobin. He was found to have an AVM that had a clot on it which was injected and clipped although it was small. Hemoglobin was 5.6 on arrival. I was able to confirm that his hemoglobin in November of this year was 10.7. Concerning factor is that he is on chronic anticoagulation. He has received a total of 4 units of packed red blood cells this admission Status: Acute (2) Diverticula of colon: Without visible bleeding seen from these Status: Acute (3) Chronic anticoagulation: Usually on Eliquis, currently held Status: Acute (4) Acute kidney injury: Baseline creatinine is 1.4 from November of this year. Nearing baseline Status: Acute (5) CHF (congestive heart failure): Ejection fraction around 30%. He is normally on Entresto which is been held due to renal function presently. Chronically managed with torsemide. Receiving Lasix here. Status: Acute Qualifiers: Heart failure type: systolic Heart failure chronicity: chronic Qualified Code(s): I50.22 - Chronic systolic (congestive) heart failure (6) CAD (coronary artery disease): With prior bypass surgery. Chronically on aspirin, carvedilol and statin Status: Acute Qualifiers: Coronary Disease-Associated Artery/Lesion type: [place] artery [place] vs. transplanted heart: [place] heart Associated angina: without angina Qualified Code(s): I25.10 - Atherosclerotic heart disease of [place] coronary artery without angina pectoris (7) Type 2 diabetes mellitus: Chronically on metformin and was started on Jardiance I believe recently. A1c 6.30 March 2020 Status: Acute Qualifiers: Diabetes mellitus group home insulin use: with intermodal dispatcher use Diabetes mellitus complication status: with hyperglycemia Qualified Code(s): E11.65 - Type 2 diabetes mellitus with hyperglycemia; Z79.4 - correction (current) use of insulin (8) Hx of aortic valve replacement: With aortic root replacement. Suspected to be bioprosthetic but not confirmed at this point in time. Status: Acute (9) Atrial fibrillation: Chronic Status: Acute Qualifiers: Atrial fibrillation type: permanent Qualified Code(s): I48.21 - Permanent atrial fibrillation (10) CVA (cerebral vascular accident): Around the time of one of his prior heart surgeries. Has had carotid endarterectomy. Previously involved left MCA. Minor residual visual field changes. Patient is fearful of having another stroke, especially if he has to come off of anticoagulation. Status: Acute Qualifiers: CVA mechanism: embolism Precerebral and cerebral artery: middle cerebral artery Laterality of affected vessel: right Qualified Code(s): I63.411 - Cerebral infarction due to embolism of right middle cerebral artery (11) Hypertension: Presently controlled Status: Acute Qualifiers: Hypertension type: unspecified Qualified Code(s): I10 - Essential (primary) hypertension (12) Dyslipidemia: Chronically on statin Status: Acute (13) Stenosis of left internal carotid artery: Status: Acute (14) AVM (arteriovenous malformation) of colon with hemorrhage: Status: Acute Additional A&P Information Mild transaminase elevation Mild lipase elevation likely secondary to GI bleeding Elevation in bilirubin which I suspect is related to the amount of blood he is received Elevated troponin at baseline without significant delta Normal TSH Start heparin drip at 1000 units an hour. I personally discussed this with nursing staff that he will not have a bolus and we are not following usual heparin protocol. Reviewed with both night and day staff. If he has any bright red blood, heparin drip is to be stopped CTA of the neck in the morning Recheck labs in the morning Has been changed back to oral torsemide today, IV Lasix stopped Entresto remains held due to acute kidney injury but hopefully we can get it restarted soon On home statin, carvedilol Home diabetic medicines are presently held, continue sliding scale insulin presently PPI Dr. Fields's recommendation is not to resume aspirin but replaced with Plavix Carotid ultrasound has been done this day Echocardiogram has been done this hospital stay Telemetry monitoring continues, had approximately 10 beat run of what was considered V. tach although patient has an ICD so I suspect it was some A. fib with aberrancy Other home medications as ordered Patient's Maria R who can be reached at [phone]. She is in the [place] area now from [place]. is requested a letter so that she can be able to work from [place] and be closer to where her is. I will provide this for her. Supportive care otherwise Outpatient chief nurse anesthetist is Dr. Londono Patient is agreeable to following up with Dr. Fields his primary care provider locally and Dr. Fields was very agreeable to this. Full code Attestations Medical Necessity Statement*: Is ongoing inpatient stay and close monitoring secondary to very high risk of acute event either thrombotic/stroke related if not anticoagulated or bleeding AVM if is anticoagulated. Plans are as noted above. Coding Level of Care Code Acute Epic Cupid Analyst for g Fwd Diagnoses Severe anemia D64.9 Diverticula of colon K57.30 Chronic anticoagulation Z79.01 Acute kidney injury N17.9 CHF (congestive heart failure) I50.22 Heart failure type: systolic Heart failure chronicity: chronic CAD (coronary artery disease) I25.10 Coronary Disease-Associated Artery/Lesion type: [place] artery [place] vs. transplanted heart: [place] heart Associated angina: without angina Type 2 diabetes mellitus E11.65; Z79.4 Diabetes mellitus intermodal dispatcher insulin use: with intermodal dispatcher use Diabetes mellitus complication status: with hyperglycemia Hx of aortic valve replacement Z95.2 Atrial fibrillation I48.21 Atrial fibrillation type: permanent CVA (cerebral vascular accident) I63.411 CVA mechanism: embolism Precerebral and cerebral artery: middle cerebral artery Laterality of affected vessel: right Hypertension I10 Hypertension type: unspecified Dyslipidemia E78.5 Stenosis of left internal carotid artery I65.22 AVM (arteriovenous malformation) of colon with hemorrhage K55.21
[2020-04-04 19:40] LABS: INR 1.28 (0.8-1.2)
[2020-04-04 19:41] LABS: Partial Thromboplastin Time 42.7 SECONDS (23.9-36.7)
[2020-04-04 20:00] VITALS: BP 111/69; PULSE 70; RESP 20; TEMP 36.7; O2SAT 99
[2020-04-04 20:28] LABS: Glucose Point of Care 215 mg/dL (70-110)
[2020-04-04] MEDS: heparin drip 25,000 UNIT/500 ML PREMIX 21.4 UNIT IV (20:33)
[2020-04-04] MEDS: diphenhydrAMINE 50 mg Capsule PO (20:41)
--- NOTE | 2020-04-04 21:16 | PC.NURSE ---
Spoke with Dr. Castellanos around 1910 and was notified of orders of heparin gtt. Physician stated to make sure heparin gtt infuses at a standard rate of 9u/k/h. She stated not to titrate heparin gtt. She only wants PTT repeated tomorrow morning and not to call UNLESS PTT comes back extremely high. Verbal received to turn the heparin gtt off immediately without calling IF BRIGHT RED BLOODY STOOLS start. Pt is to have CTA in AM REGARDLESS OF GFR due to high stenosis of LICA. Monitoring very closely for signs of bleeding and stroke symptoms. Pt resting in bed and stable at this time. 2015: Pt remains resting in bed and states that he is just really tired today. Complains of pain in foot and states I think years ago I had gout. Repositioned, elevated. Pt verbalized improvement. Heparin gtt initiated per orders. (SEE MAR)
[2020-04-05] VITALS (7 sets, daily range): BP systolic 93–126; BP diastolic 42–80; PULSE 70; RESP 14–23; TEMP 36.6–37.1; O2SAT 93–98
[2020-04-05] MEDS: acetaminophen 325 mg Tablet 650 MG PO (04:58)
[2020-04-05 05:01] LABS: Basophils # 0.1 10^3/uL (0.0-0.1); Basophils % 0.8 %; Eosinophils # 0.1 10^3/uL (0.0-0.8); Eosinophils % 1.8 %; Hematocrit 27.2 % (42.0-52.0); Hemoglobin 7.9 g/dL (11.7-16.6); Mean Corpuscular Hemoglobin 23.7 pg (28.0-34.0); Mean Corpuscular Volume 81.7 fL (80-94); Monocytes # 1.1 10^3/uL (0.2-0.9); Monocytes % 14.2 %; Neutrophils # 5.3 10^3/uL (1.8-7.7); Neutrophils % 69.8 %; Nucleated Red Blood Cells % 0.5 %; Platelet Count 222 10^3/cmm (130-400); Red Blood Count 3.33 10^6/uL (4.1-5.3); White Blood Count 7.6 10^3/uL (4.0-10.0)
[2020-04-05 05:24] LABS: Alanine Aminotransferase 37 U/L (0-41); Albumin Level 3.7 g/dL (3.5-5.2); Alkaline Phosphatase 115 IU/L (40-130); Anion Gap 14.9 (5-19); Aspartate Amino Transferase 26 U/L (0-40); Blood Urea Nitrogen 23 mg/dL (8-23); Calcium 9.3 mg/dL (8.5-10.5); Carbon Dioxide 29 mmol/L (22-29); Chloride 95 mmol/L (98-107); Creatinine Clr Calc Pharmacy 60.5015; Globulin 3.3 g/dL (1.3-4.6); Glomerular Filtration Rate 43.3 mL/min (90-130); Glucose 169 mg/dL (65-115); Osmolality Calculated 281 mOsm/kg (285-295); Potassium 3.9 mmol/L (3.5-5.1); Sodium 135 mmol/L (136-145)
--- NOTE | 2020-04-05 05:42 | PC.NURSE ---
Pt stable during this shift, but did not sleep well. Pt reports that he has a history of gout but has not required medications for about 2 years and thinks that it was gabepentin that he took. Pain has started again in left foot. Pulses are palpable in BLE and remain the same as previous symptoms. Tylenol PRN ordered (SEE MAR). heparin gtt was initiated. See previous nursing note regarding further details on gtt initiation. CTA ordered today of neck to help plan on needed interventions for highly stenosed L ICA. Hgb trending down this AM- monitoring labs closely. No signs or symptoms of bleeding throughout this shift.
--- NOTE | 2020-04-05 06:00 | CTR_ITS ---
PROCEDURE INFORMATION: Exam: CT Angiography Neck With Contrast Exam date and time: 04/05/2020 8:24 AM Age: 69 years old Clinical indication: Other: R/O stenosis; Prior surgery; Surgery type: On left carotid; Additional info: High grade stenosis left ica, HX cea TECHNIQUE: Imaging protocol: Computed tomography angiography of the neck with intravenous contrast. 3D rendering: MIP and/or 3D reconstructed images were created by the technologist. Radiation optimization: All CT scans at this facility use at least one of these dose optimization techniques: automated exposure control; mA and/or kV adjustment per patient size (includes targeted exams where dose is matched to clinical indication); or iterative reconstruction. Contrast material: Visipaque 320; Contrast volume: 95 ml; Contrast route: IV; COMPARISON: No relevant prior studies available. RADIATION DOSE METRICS: Total DLP: 729.39 mGy-cm FINDINGS: Right common carotid artery: Mild proximal and mid right common carotid artery atherosclerotic vascular calcifications, no stenosis. Moderate right common carotid artery bifurcation calcified plaque, less than 50% stenosis. Right internal carotid artery: Mild proximal right internal carotid artery intimal calcifications, less than 20% stenosis. Right external carotid artery: Severe stenosis right external carotid artery origin. Right vertebral artery: Proximal right vertebral artery V1 segment atherosclerotic calcifications, less than 30% stenosis. Left common carotid artery: No stenosis. No dissection or occlusion. Left internal carotid artery: Severe (95-97 %) short segment left internal carotid artery stenosis with noncalcified plaque (series 303, image 16). Left external carotid artery: Moderate stenosis left external carotid artery origin. Left vertebral artery: Chronic left [place] infarction. Left vertebral artery V2 segment (C7) and V3 segment atherosclerotic calcification, less than 30% stenosis. Dural sinuses/cerebral veins: Left transverse sinus intravascular arachnoid granulation measuring 7.7 mm, normal variant. Other vasculature: The main and bilateral pulmonary arteries are enlarged with peripheral tapering. Orbits: Left prior cataract surgery. Dental: Edentulous mandible. Bones/joints: C5-6 spondylosis with bilateral neural foraminal stenosis. The patient is status post median sternotomy with sternal cerclage wires. Soft tissues: Normal. No significant soft tissue swelling. Lungs: No pneumothorax. Moderate bilateral pleural effusions. Right lower lobe calcified pulmonary parenchymal granuloma. A 1.1 mm noncalcified pulmonary nodule is noted in the anterior apical segment of the right upper lobe (LOC -[id number]). Other findings: Moderate atlantodental osteoarthritis. Epicardial pacing wires. CT/CT angio neck 68073 IMPRESSION: 1. Severe left internal carotid artery stenosis. 2. Chronic left [place] infarction. 3. Severe stenosis right external carotid artery origin. 4. Moderate bilateral pleural effusions. 5. Probable pulmonary arterial hypertension. Clinical correlation is recommended. 6. Noncalcified right upper lobe pulmonary nodule. For patients at low risk (minimal or absent history of smoking and of other known risk factors), no routine follow-up is indicated. For patients at high risk (history of smoking or of other known risk factors), consider optional CT at 12 months. (Lupillo et al., Fleischner Society, 2017). REFERENCES: NASCET CRITERIA. The degree of internal carotid artery stenosis is based on NASCET criteria. Normal is no stenosis. Mild is less than 50% stenosis. Moderate is 50-69% stenosis. Severe is 70% to 99% stenosis. Total occlusion is no detectable patent lumen. Radiation Dose CTDIVOL = (mGy): DLP = 729.39 (mGy-cm)
[2020-04-05 06:28] LABS: Glucose Point of Care 160 mg/dL (70-110)
[2020-04-05] MEDS: carvedilol 12.5 mg Tablet PO (06:47)
--- NOTE | 2020-04-05 06:49 | PC.NURSE ---
LATE MEDICATION ADMINISTRATION: Late administering coreg this AM due to other nursing responsibilities in another patient's room.
[2020-04-05] MEDS: atorvastatin 40 mg Tablet 80 MG PO (09:25)
[2020-04-05] MEDS: TORSEmide 20 mg Tablet 100 MG PO (09:25)
[2020-04-05] MEDS: magnesium lactate 84 mg Tablet PO ×2 (09:26→17:45)
[2020-04-05] MEDS: sacubitril/valsartan 24-26 mg Tablet 1 EACH PO ×2 (09:26→17:45)
[2020-04-05] MEDS: potassium chloride ER 10 mEq Tablet 20 MEQ PO ×2 (09:26→17:46)
[2020-04-05] MEDS: sennosides-docusate Tablet 2 TAB PO ×2 (09:27→17:45)
[2020-04-05] MEDS: pantoprazole 40 mg SDV IVP ×2 (09:28→17:44)
[2020-04-05] MEDS: escitalopram 10 mg Tablet PO (09:28)
[2020-04-05] MEDS: duloxetine 30 mg Capsule 60 MG PO (09:28)
[2020-04-05] MEDS: HYDROcodone-acetaminophen 5-325 mg Tablet 1 TAB PO ×2 (09:43→20:23)
[2020-04-05 09:52] LABS: Uric Acid 8.1 mg/dL (3.4-7.0)
[2020-04-05] MEDS: iodixanol 320 mg/mL 100mL Btl IV (10:14)
--- NOTE | 2020-04-05 10:18 | PC.NURSE ---
DR. LEOS ACCOMPANIED PATIENT TO THE [facility] FOR HIS NECK CT.
[2020-04-05 11:15] LABS: Glucose Point of Care 198 mg/dL (70-110)
--- NOTE | 2020-04-05 11:42 | P.PN_ITS ---
Subjective Subjective: Interval history: No complaints this morning. Breathing is okay, no chest pain. He did not have any bowel movement and has not noted any bright red blood per rectum. CTA of the chest is ordered for this morning. Vitals/I&O/Wt Last Vital Signs Temp 97.9 F 04/05/20 10:55 Pulse 70 04/05/20 10:55 Resp 18 04/05/20 10:55 BP 123/76 04/05/20 07:17 Pulse Ox 96 04/05/20 10:55 04/04/20 04/05/20 04/05/20 22:59 06:59 14:59 Intake Total 700 / 1900 480 / 480 Output Total 500 / 1000 500 / 1500 Balance 200 / 900 -500 / 400 480 / 480 Physical Exam Const: OTHER: Alert, oriented x3, cooperative HENMT: OTHER: Normocephalic atraumatic Eye: OTHER: Extraocular movements intact Neck/C-Spine: OTHER: Supple Resp: OTHER: Clear to auscultation bilaterally Cardio: OTHER: Regular rhythm GI: OTHER: Abdomen soft, nontender Extremity: NARRATIVE EXTREMITY EXAM: Still with some pitting edema Neuro: OTHER: Face symmetric, speech clear, moves all extremities Psych: OTHER: Normal affect Skin: OTHER: Chronic stasis changes Data : 04/05/20 16:10 04/05/20 04:28 A&P Assessment and plan (1) Severe anemia: Symptomatic, iron deficiency with reported intermittent GI losses with bright red blood. I suspect he has had a slow drop in his hemoglobin given how he looked when he came in. He was found, at endoscopy, to have a small AVM in the ascending colon with clot. It was injected and clipped. Hemoglobin was 5.6 on arrival. I was able to confirm that his hemoglobin in November of this year was 10.7. Concerning factor is that he is on chronic anticoagulation. He has received a total of 4 units of packed red blood cells this admission. Hemoglobin peaked at 8.2 and since reinitiation of anticoagulation in the form of a fixed dose heparin drip he has had slow trend downwards. Status: Acute (2) AVM (arteriovenous malformation) of colon with hemorrhage: Status post epinephrine injection and clipping by Dr. Fields on April 04. Status: Acute (3) Stenosis of left internal carotid artery: Status: Acute (4) Chronic anticoagulation: Usually on Eliquis, currently held. Was started on fixed dose heparin drip after carotid ultrasound showed high-grade stenosis. Status: Acute (5) Acute kidney injury: Baseline creatinine is 1.4 from November of this year. Nearing baseline Status: Acute (6) CHF (congestive heart failure): Ejection fraction around 30%. He is normally on Entresto which is been held due to renal function presently. Chronically managed with torsemide. Received IV Lasix here initially and was changed back to oral torsemide on 04/04. Status: Acute Qualifiers: Heart failure chronicity: chronic Heart failure type: systolic Qualified Code(s): I50.22 - Chronic systolic (congestive) heart failure (7) CAD (coronary artery disease): With prior bypass surgery. Chronically on aspirin, carvedilol and statin Status: Acute Qualifiers: Associated angina: without angina Coronary Disease-Associated Artery/Lesion type: [place] artery [place] vs. transplanted heart: [place] heart Qualified Code(s): I25.10 - Atherosclerotic heart disease of [place] coronary artery without angina pectoris (8) Type 2 diabetes mellitus: Chronically on metformin and was started on Jardiance I believe recently. A1c 6.30 March 2020. Metformin probably should not be restarted at discharge secondary to renal function. 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 Suspected to be bioprosthetic but not confirmed at this point in time. Status: Acute (10) Atrial fibrillation: Chronic, paced Status: Acute Qualifiers: Atrial fibrillation type: permanent Qualified Code(s): I48.21 - Permanent atrial fibrillation (11) CVA (cerebral vascular accident): Around the time of one of his prior heart surgeries. Has had carotid endarterectomy. Previously involved left MCA. Minor residual visual field changes. Patient is fearful of having another stroke, especially if he has to come off of anticoagulation. Status: Acute Qualifiers: CVA mechanism: embolism Laterality of affected vessel: right Precerebral and cerebral artery: middle cerebral artery Qualified Code(s): I63.411 - Cerebral infarction due to embolism of right middle cerebral artery (12) Hypertension: Presently controlled Status: Acute Qualifiers: Hypertension type: unspecified Qualified Code(s): I10 - Essential (primary) hypertension (13) Dyslipidemia: Chronically on statin Status: Acute (14) Diverticula of colon: Without visible bleeding seen from these Status: Acute (15) Gout: Has a history of such, particularly with increased diuretic therapy. 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 Londono will discuss with Dr. Gomez tomorrow the findings on CTA of the neck to determine if this is something that he can manage here or if we will need to consider transfer for alternative interventions Dr. Londono discussed with the patient the findings on the CT today Hydrocodone has been added for gout pain and will give him a couple of doses of colchicine. Under the circumstances NSAID therapy and steroids were not great options given the GI bleeding On oral torsemide Entresto remains held due to acute kidney injury but hopefully can get restarted soon On home statin, carvedilol Home oral diabetic medicines are presently held, continue sliding scale insulin presently PPI Dr. Fields's recommendation is not to resume aspirin but replaced with Plavix Eliquis is currently held secondary to GI bleeding and while we determine plan of care Telemetry monitoring continues Other home medications as ordered CTA of the neck is been done this stay Carotid ultrasound has been done this stay Echocardiogram has been done this hospital stay Patient's Maria R who can be reached at [phone]. She is in the [place] area now from [place]. is requested a letter so that she can be able to work from [place] and be closer to where her is. I will provide this for her. 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 Londono New local PCP will be Dr. Fields Full code Attestations Medical Necessity Statement*: Requires ongoing inpatient stay for continued monitoring for recurrent GI bleeding while anticoagulation has been restarted. Additionally he has been found to have severe stenosis of the left internal carotid artery which will require intervention. Plans are as noted above. 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
[2020-04-05] MEDS: colchicine 0.6 mg Tablet PO (11:48)
--- NOTE | 2020-04-05 13:20 | PM.PN ---
Subjective Subjective: Interval history: Patient is feeling okay. Denies any chest pain or chest tightness. No unusual shortness of breath. He had a CT of the neck this morning. He was found to have a high-grade stenosis in the left ICA. Patient does not have any specific symptoms of carotid insufficiency at this time. His hemoglobin was found to be 7.5 this morning Medications: Reviewed: Yes Medication Review Details: Current Medications Acetaminophen (Tylenol) 650 mg PO Q6H PRN PRN Reason: MILD PAIN Last Admin: 04/05/20 04:58 Dose: 650 mg Documented by: Hydrocodone Bitart/Acetaminophen ([place] 5-325 Mg) 1 tab PO Q4H PRN PRN Reason: MODERATE PAIN Last Admin: 04/05/20 09:43 Dose: 1 tab Documented by: Atorvastatin Calcium (Lipitor) 80 mg PO DAILY REPLACED BY [facility] Last Admin: 04/05/20 09:25 Dose: 80 mg Documented by: Bisacodyl (Dulcolax) 10 mg PO DAILY PRN PRN Reason: CONSTIPATION Carvedilol (Coreg) 12.5 mg PO Q12H REPLACED BY [facility] Last Admin: 04/05/20 06:47 Dose: 12.5 mg Documented by: Colchicine (Colcrys) 0.6 mg PO DAILY REPLACED BY [facility] Last Admin: 04/05/20 11:48 Dose: 0.6 mg Documented by: Dextrose (D50w) 25 ml IVP ONCE PRN; Protocol PRN Reason: hypoglycemia protocol Dextrose (D50w) 50 ml IVP PRN PRN; Protocol PRN Reason: hypoglycemia protocol Diphenhydramine HCl (Benadryl) 50 mg PO BEDTIME PRN PRN Reason: INSOMNIA Last Admin: 04/04/20 20:41 Dose: 50 mg Documented by: Duloxetine HCl (Cymbalta) 60 mg PO DAILY REPLACED BY [facility] Last Admin: 04/05/20 09:28 Dose: 60 mg Documented by: Escitalopram Oxalate (Lexapro) 10 mg PO DAILY REPLACED BY [facility] Last Admin: 04/05/20 09:28 Dose: 10 mg Documented by: Glucagon (Glucagen) 1 mg IM ONCE PRN; Protocol PRN Reason: Adult Acute Hypoglycemia Prot. Dextrose (D5w) 500 mls @ 100 mls/hr IV ONCE PRN; Protocol PRN Reason: Adult Acute Hypoglycemia Prot Heparin Sodium/Sodium Chloride (Heparin Drip) 25,000 unit in 500 mls @ 21.391 mls/hr IV .[id number] REPLACED BY [facility] Last Admin: 04/04/20 20:33 Dose: 9 unit/kg/hr, 21.4 mls/hr Documented by: Insulin Aspart (Novolog) 0 unit SUBCUT BEDTIME REPLACED BY [facility]; Protocol Last Admin: 04/04/20 20:41 Dose: 1 unit Documented by: Insulin Aspart (Novolog) 0 unit SUBCUT TIDWM REPLACED BY [facility]; Protocol Last Admin: 04/05/20 11:43 Dose: 4 unit Documented by: Magnesium Lactate (Mag-Tab Sr) 84 mg PO BID REPLACED BY [facility] Last Admin: 04/05/20 09:26 Dose: 84 mg Documented by: Pantoprazole Sodium (Protonix) 40 mg IVP BID REPLACED BY [facility] Last Admin: 04/05/20 09:28 Dose: 40 mg Documented by: Potassium Chloride (Klor-Con 10) 20 meq PO BID REPLACED BY [facility] Last Admin: 04/05/20 09:26 Dose: 20 meq Documented by: Sacubitril/Valsartan (Entresto 24-26 Mg) 1 each PO BID REPLACED BY [facility] Last Admin: 04/05/20 09:26 Dose: 1 each Documented by: Senna/Docusate Sodium (Senna-S) 2 tab PO BID REPLACED BY [facility] Last Admin: 04/05/20 09:27 Dose: 2 tab Documented by: Torsemide (Demadex) 100 mg PO DAILY REPLACED BY [facility] Last Admin: 04/05/20 09:25 Dose: 100 mg Documented by: Vitals/I&O/Wt Last Vital Signs Temp 97.9 F 04/05/20 10:55 Pulse 70 04/05/20 10:55 Resp 18 04/05/20 10:55 BP 109/80 04/05/20 10:55 Pulse Ox 96 04/05/20 10:55 04/04/20 04/05/20 04/05/20 22:59 06:59 14:59 Intake Total 700 / 1900 480 / 480 Output Total 500 / 1000 500 / 1500 400 / 400 Balance 200 / 900 -500 / 400 80 / 80 Physical Exam Narrative: EXAM NARRATIVE: GENERAL: The patient is alert and oriented times three. Not in any acute distress. Somewhat ill looking HEENT: Moderate pallor, no icterus or lymphadenopathy. NECK: Trachea appears to be central. No masses noted. No JVD or thyromegaly appreciated. Carotid bruit on the left side RESPIRATORY: Chest is symmetrical. No intercostals muscle retraction or any accessory muscle activation. There is no chest wall tenderness. Breath sounds are heard bilaterally. Intensity the breath sounds are diminished in the bases. The ICD implantation site looks okay with no evidence of any infection BREASTS: Deferred. HEART: T the PMI could not be palpated. No other palpable precordial events. First heart sound is normal. No S3. Short systolic murmur at the left sternal border. No diastolic murmurs. No pericardial rub. ABDOMEN: No vessel pulsations or distention. No tenderness. No organomegaly appreciated. No abdominal bruit. Bowel sounds are normally heard. : Deferred. RECTAL: Deferred. LYMPHATIC: No lymphadenopathy noted in the neck or groin. EXTREMITIES: 1+ edema both lower extremities. No cyanosis. MUSCULOSKELETAL: No acute joint deformities or swelling SKIN: There are no significant scars or skin rash noted. NEUROPSYCHIATRIC: The patient is alert and oriented x3. Appears to be in a good mood. The higher functions are grossly within normal limits. No tremors or rigidity noted. Data : 04/05/20 16:10 04/05/20 04:28 CTA of the head and neck: Radiologist's impression: . Severe left internal carotid artery stenosis. 2. 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 3. Severe stenosis right external carotid artery origin. 4. Moderate bilateral pleural effusions. 5. Probable pulmonary arterial hypertension. Clinical correlation is recommended. 6. Noncalcified right upper lobe pulmonary nodule. A&P Assessment and plan (1) CHF (congestive heart failure): The heart failure is fairly treated at this time. Patient may be continued on the torsemide. His urine output seems to be appropriate. Status: Acute Qualifiers: Heart failure chronicity: chronic Heart failure type: systolic Qualified Code(s): I50.22 - Chronic systolic (congestive) heart failure (2) Severe anemia: Most likely related to the GI bleed. Status post endoscopic clipping of the AV malformation. The hemoglobin dropped to 7.5 today. This may not be a significant drop since the hemoglobin prior to the clipping was 7.4 Status: Acute (3) Ischemic cardiomyopathy: The LV ejection fraction has not significantly changed from the previous section fraction by echocardiogram in 2018. May continue on the current medications. Entresto was not restarted during this hospital admission. I may go ahead and start him back on the Entresto. Continue on the other current medications Status: Acute (4) CAD (coronary artery disease): Since the patient has no chest pain or any specific cardiac symptoms, we may hold off on any further intervention at this point. Continue on the current medications. Status: Acute Qualifiers: Associated angina: without angina Coronary Disease-Associated Artery/Lesion type: [place] artery [place] vs. transplanted heart: [place] heart Qualified Code(s): I25.10 - Atherosclerotic heart disease of [place] coronary artery without angina pectoris (5) Chronic anticoagulation: Because of the GI bleed, as per recommendation, we may hold off on the Eliquis for a week. Patient is on heparin. This may be continued. Repeat hemoglobin this evening was found to be 7.5. Status: Acute (6) Carotid artery stenosis with cerebral infarction: In view of the high-grade restenosis of the carotid lesion, patient may be a candidate for carotid artery stenting. I will be discussing this with Dr. Gomez in the morning. We will make a decision on this afterwards. Status: Acute Additional A&P Information documentOther problems are Chronic kidney disease Diabetes with uncontrolled blood sugar History of CVA from carotid artery stenosis? Bilateral carotid artery disease Status post AVR x2 History of essential benign hypertension Dyslipidemia In the meanwhile, patient may be continued on the heparin. Repeat hemoglobin hematocrit in the morning. Discussed with the patient's significant other about his medical condition and treatment options. Answered all her questions to her satisfaction. 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 transplanted heart: [place] heart Chronic anticoagulation Z79.01 Carotid artery stenosis with cerebral infarction I63.239
[2020-04-05 16:10] LABS: Glucose Point of Care 236 mg/dL (70-110)
[2020-04-05 16:19] LABS: Basophils # 0.1 10^3/uL (0.0-0.1); Basophils % 0.7 %; Eosinophils # 0.1 10^3/uL (0.0-0.8); Eosinophils % 1.2 %; Hematocrit 26.5 % (42.0-52.0); Hemoglobin 7.5 g/dL (11.7-16.6); Lymphocytes # 0.8 10^3/uL (0.8-4.8); Lymphocytes % 10.8 %; Mean Corpuscular HGB Conc 28.3 g/dL (30.0-36.0); Mean Corpuscular Hemoglobin 23.4 pg (28.0-34.0); Mean Corpuscular Volume 82.8 fL (80-94); Monocytes # 1.1 10^3/uL (0.2-0.9); Monocytes % 14.8 %; Neutrophils # 5.6 10^3/uL (1.8-7.7); Neutrophils % 72.4 %; Nucleated Red Blood Cells % 0.3 %; Platelet Count 219 10^3/cmm (130-400); Red Cell Distribution Width 20.4 % (12.1-15.1); White Blood Count 7.7 10^3/uL (4.0-10.0)
--- NOTE | 2020-04-05 16:45 | PC.NURSE ---
PATIENT'S BLOOD PRESSURES HAVE BEEN SOFT THIS SHIFT, PLEASE SEE RECORDED VITAL DOCUMENTATION. DR. LEOS NOTIFIED AND ORDERED TO CUT COREG DOSE IN HALF TO 6.25MG Q12H (KEEP SAME SCHEDULE).
[2020-04-05] MEDS: carvedilol 6.25 mg Tablet PO (17:45)
[2020-04-05 19:58] LABS: Partial Thromboplastin Time 44.2 SECONDS (23.9-36.7)
[2020-04-05] MEDS: heparin drip 25,000 UNIT/500 ML PREMIX 21.4 UNIT IV (20:21)
[2020-04-05 20:31] LABS: Glucose Point of Care 137 mg/dL (70-110)
--- NOTE | 2020-04-05 20:36 | PC.NURSE ---
Pt resting in bed. Left foot pain continues, but pt reports that it is improving with initiation of new medications today. PRn medications provided. Heparin gtt remains infusing. Pt asked about labs and what the plan was. Educated on heparin gtt and the purpose and labs reviewed with patient per request. All questions answered. Pt states that he is tired. Room darkened, meds given, and attempting to allow pt to rest as much as possible. No further needs identified at this time.
[2020-04-06] VITALS: BP 108/54; PULSE 73; RESP 19; O2SAT 95
[2020-04-06 04:00] VITALS: BP 113/71; PULSE 69; RESP 14; O2SAT 96
[2020-04-06] MEDS: HYDROcodone-acetaminophen 5-325 mg Tablet 1 TAB PO ×3 (04:45→17:48)
[2020-04-06] MEDS: carvedilol 6.25 mg Tablet PO (04:48)
[2020-04-06 04:51] VITALS: TEMP 36.9
[2020-04-06 05:07] LABS: Basophils # 0.1 10^3/uL (0.0-0.1); Basophils % 0.7 %; Eosinophils # 0.2 10^3/uL (0.0-0.8); Eosinophils % 2.1 %; Hematocrit 27.4 % (42.0-52.0); Hemoglobin 7.8 g/dL (11.7-16.6); Lymphocytes # 0.9 10^3/uL (0.8-4.8); Lymphocytes % 12.7 %; Mean Corpuscular HGB Conc 28.5 g/dL (30.0-36.0); Mean Corpuscular Hemoglobin 23.4 pg (28.0-34.0); Mean Corpuscular Volume 82.3 fL (80-94); Mean Platelet Volume 9.5 fL (7.4-10.4); Monocytes % 13.6 %; Neutrophils # 4.9 10^3/uL (1.8-7.7); Neutrophils % 70.5 %; Nucleated Red Blood Cells % 0.3 %; Platelet Count 196 10^3/cmm (130-400); Red Blood Count 3.33 10^6/uL (4.1-5.3); Red Cell Distribution Width 20.6 % (12.1-15.1)
[2020-04-06 05:23] LABS: Partial Thromboplastin Time 46.9 SECONDS (23.9-36.7)
[2020-04-06 05:24] LABS: Anion Gap 14.2 (5-19); Blood Urea Nitrogen 28 mg/dL (8-23); Calcium 9.2 mg/dL (8.5-10.5); Carbon Dioxide 30 mmol/L (22-29); Chloride 95 mmol/L (98-107); Glomerular Filtration Rate 40.4 mL/min (90-130); Glucose 130 mg/dL (65-115); Osmolality Calculated 279 mOsm/kg (285-295); Potassium 4.2 mmol/L (3.5-5.1); Sodium 135 mmol/L (136-145)
[2020-04-06 06:19] LABS: Glucose Point of Care 134 mg/dL (70-110)
--- NOTE | 2020-04-06 06:25 | PC.NURSE ---
END OF SHIFT NOTE: Pt stable during this shift. Heparin gtt continues to infuse per orders. Dr. Serrano to see pt this AM and discuss options regarding stenosis. Monitoring blood counts as ordered post AVM clip. Pain in foot persistent, but improving per pt.
[2020-04-06 08:00] VITALS: BP 96/61; PULSE 70; RESP 18; TEMP 36.7; O2SAT 94
--- NOTE | 2020-04-06 09:30 | PC.NURSE ---
Dr. Garcia on unit. Verbal order to hold entresto and recheck BP at noon. If BP stable and patient is not hypotensive may give morning dose at noon.
[2020-04-06] MEDS: escitalopram 10 mg Tablet PO (09:36)
[2020-04-06] MEDS: potassium chloride ER 10 mEq Tablet 20 MEQ PO ×2 (09:36→17:40)
[2020-04-06] MEDS: duloxetine 30 mg Capsule 60 MG PO (09:36)
[2020-04-06] MEDS: TORSEmide 20 mg Tablet 100 MG PO (09:36)
[2020-04-06] MEDS: magnesium lactate 84 mg Tablet PO ×2 (09:36→17:39)
[2020-04-06] MEDS: colchicine 0.6 mg Tablet PO (09:37)
[2020-04-06] MEDS: atorvastatin 40 mg Tablet 80 MG PO (09:37)
--- NOTE | 2020-04-06 09:41 | P.PN_ITS ---
Subjective Subjective: Interval history: The patient is feeling okay with no chest pain. The shortness of breath has improved and stable. No fever or chills. No cough. Hemoglobin seems to be steady. Medications: Reviewed: Yes Medication Review Details: Current Medications Acetaminophen (Tylenol) 650 mg PO Q6H PRN PRN Reason: MILD PAIN Last Admin: 04/05/20 04:58 Dose: 650 mg Documented by: Hydrocodone Bitart/Acetaminophen ([place] 5-325 Mg) 1 tab PO Q4H PRN PRN Reason: MODERATE PAIN Last Admin: 04/06/20 04:45 Dose: 1 tab Documented by: Atorvastatin Calcium (Lipitor) 80 mg PO DAILY [facility] Last Admin: 04/05/20 09:25 Dose: 80 mg Documented by: Bisacodyl (Dulcolax) 10 mg PO DAILY PRN PRN Reason: CONSTIPATION Carvedilol (Coreg) 3.125 mg PO Q12H [facility] Colchicine (Colcrys) 0.6 mg PO DAILY [facility] Last Admin: 04/05/20 11:48 Dose: 0.6 mg Documented by: Dextrose (D50w) 25 ml IVP ONCE PRN; Protocol PRN Reason: hypoglycemia protocol Dextrose (D50w) 50 ml IVP PRN PRN; Protocol PRN Reason: hypoglycemia protocol Diphenhydramine HCl (Benadryl) 50 mg PO BEDTIME PRN PRN Reason: INSOMNIA Last Admin: 04/04/20 20:41 Dose: 50 mg Documented by: Duloxetine HCl (Cymbalta) 60 mg PO DAILY [facility] Last Admin: 04/05/20 09:28 Dose: 60 mg Documented by: Escitalopram Oxalate (Lexapro) 10 mg PO DAILY [facility] Last Admin: 04/05/20 09:28 Dose: 10 mg Documented by: Glucagon (Glucagen) 1 mg IM ONCE PRN; Protocol PRN Reason: Adult Acute Hypoglycemia Prot. Dextrose (D5w) 500 mls @ 100 mls/hr IV ONCE PRN; Protocol PRN Reason: Adult Acute Hypoglycemia Prot Heparin Sodium/Sodium Chloride (Heparin Drip) 25,000 unit in 500 mls @ 21.391 mls/hr IV .[id number] [facility] Last Admin: 04/05/20 20:21 Dose: 9 unit/kg/hr, 21.4 mls/hr Documented by: Insulin Aspart (Novolog) 0 unit SUBCUT BEDTIME [facility]; Protocol Last Admin: 04/05/20 20:29 Dose: Not Given Documented by: Insulin Aspart (Novolog) 0 unit SUBCUT TIDWM [facility]; Protocol Last Admin: 04/06/20 09:16 Dose: Not Given Documented by: Magnesium Lactate (Mag-Tab Sr) 84 mg PO BID [facility] Last Admin: 04/05/20 17:45 Dose: 84 mg Documented by: Pantoprazole Sodium (Protonix) 40 mg IVP BID [facility] Last Admin: 04/05/20 17:44 Dose: 40 mg Documented by: Potassium Chloride (Klor-Con 10) 20 meq PO BID [facility] Last Admin: 04/05/20 17:46 Dose: 20 meq Documented by: Sacubitril/Valsartan (Entresto 24-26 Mg) 1 each PO BID [facility] Last Admin: 04/05/20 17:45 Dose: 1 each Documented by: Senna/Docusate Sodium (Senna-S) 2 tab PO BID [facility] Last Admin: 04/05/20 17:45 Dose: 2 tab Documented by: Torsemide (Demadex) 100 mg PO DAILY [facility] Last Admin: 04/05/20 09:25 Dose: 100 mg Documented by: Tramadol HCl (Ultram) 50 mg PO Q6H PRN PRN Reason: MILD TO MODERATE PAIN Vitals/I&O/Wt Last Vital Signs Temp 98.0 F 04/06/20 08:00 Pulse 70 04/06/20 08:00 Resp 18 04/06/20 08:00 BP 96/61 04/06/20 08:00 Pulse Ox 94 04/06/20 08:00 04/05/20 04/06/20 04/06/20 22:59 06:59 14:59 Intake Total 980 / 1460 100 / 1560 Output Total 1150 / 1550 400 / 1950 375 / 375 Balance -170 / -90 -300 / -390 -375 / -375 Weight last 48 hrs Weight 116 lb 9.6 oz Physical Exam Narrative: EXAM NARRATIVE: GENERAL: The patient is alert and oriented times th ree. Not in any acute distress. Somewhat ill looking HEENT: Moderate pallor, no icterus or lymphadenopathy. NECK: Trachea appears to be central. No masses noted. No JVD or thyromegaly appreciated. Carotid bruit on the left side RESPIRATORY: Chest is symmetrical. No intercostals muscle retraction or any accessory muscle activation. There is no chest wall tenderness. Breath sounds are heard bilaterally. Intensity the breath sounds are diminished in the bases. The ICD implantation site looks okay with no evidence of any infection BREASTS: Deferred. HEART: T the PMI could not be palpated. No other palpable precordial events. First heart sound is normal. No S3. Short systolic murmur at the left sternal border. No diastolic murmurs. No pericardial rub. ABDOMEN: No vessel pulsations or distention. No tenderness. No organomegaly appreciated. No abdominal bruit. Bowel sounds are normally heard. : Deferred. RECTAL: Deferred. LYMPHATIC: No lymphadenopathy noted in the neck or groin. EXTREMITIES: 1+ edema both lower extremities. No cyanosis. MUSCULOSKELETAL: No acute joint deformities or swelling SKIN: There are no significant scars or skin rash noted. NEUROPSYCHIATRIC: The patient is alert and oriented x3. Appears to be in a good mood. The higher functions are grossly within normal limits. No tremors or rigidity noted. Data : 04/06/20 04:52 04/06/20 04:52 A&P Assessment and plan (1) CHF (congestive heart failure): The heart failure is fairly treated at this time. Patient may be continued on the torsemide. His urine output seems to be appropriate. Status: Acute Qualifiers: Heart failure type: systolic Heart failure chronicity: chronic Qualified Code(s): I50.22 - Chronic systolic (congestive) heart failure (2) Severe anemia: Most likely related to the GI bleed. Status post endoscopic clipping of the AV malformation. The hemoglobin seems to be stable. Today it is 7.8. Slightly better than yesterday. Status: Acute (3) Ischemic cardiomyopathy: The LV ejection fraction has not significantly changed from the previous section fraction by echocardiogram in 2018. May continue on the current medications. Entresto was not restarted during this hospital admission. We will continue the Entresto. The systolic blood pressures in the 90s today. Status: Acute (4) CAD (coronary artery disease): Since the patient has no chest pain or any specific cardiac symptoms, we may hold off on any further intervention at this point. Continue on the current medications. Status: Acute Qualifiers: Coronary Disease-Associated Artery/Lesion type: [place] artery [place] vs. transplanted heart: [place] heart Associated angina: without angina Qualified Code(s): I25.10 - Atherosclerotic heart disease of [place] coronary artery without angina pectoris (5) Chronic anticoagulation: Because of the GI bleed, as per recommendation, we may hold off on the Eliquis for a week. Patient is on heparin. This may be continued. Status: Acute (6) Carotid artery stenosis with cerebral infarction: In view of the high-grade restenosis of the carotid lesion, patient may be a candidate for carotid artery stenting. Dr. Gomez is consulted. Will await his recommendation Status: Acute Additional A&P Information documentOther problems are Chronic kidney disease, seems to be stable Diabetes with uncontrolled blood sugar History of CVA from carotid artery stenosis? Bilateral carotid artery disease Status post AVR x2 History of essential benign hypertension Dyslipidemia We will continue on the current medications for the time being. After making a decision on his carotid stenosis, further management decisions will be made. 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 transplanted heart: [place] heart Associated angina: without angina Chronic anticoagulation Z79.01 Carotid artery stenosis with cerebral infarction I63.239
[2020-04-06] MEDS: pantoprazole 40 mg SDV IVP ×2 (09:42→17:39)
--- NOTE | 2020-04-06 10:01 | PC.SOCIAL ---
IMM Updated. Updated pt on Pg 2 IMM. Pt verbally understands. No questions voiced. Provided pt a copy & left on pt's bedside table. Signed, dated, & timed the copy in pt's chart.
[2020-04-06 10:46] VITALS: BP 102/67; PULSE 70; RESP 15; TEMP 36.7; O2SAT 96
--- NOTE | 2020-04-06 10:46 | P.CONIM_ITS ---
Providers/Reason For Consult Consulting Physican/Specialty*: Dr. Gomez cardiothoracic surgery Reason for Consult*: Left internal carotid artery stenosis, severe Requesting Physcian: Dr. Londono Attending Physician: John Garcia MD History of Present Illness History of Present Illness Abhay Varghese is a 69 year old male who is been hospitalized since March 31 when he presented with generalized weakness, dyspnea, and was found to be quite anemic with a hemoglobin of 5.6. He septa received a 3 unit blood transfusion with only a modest rise in his H&H. He also described bright red blood per rectum. He was supple evaluated by Dr. Fields from GI medicine. He underwent upper and lower endoscopy, and verbal report given to me was that AVMs were notified including 1 bleeding AVM for which he underwent clipping. I have not actually read this report however been able to find it. Patient has a complex past medical history including 3 open heart surgeries in 1997 2012 and 2017. He just underwent 5 vessel coronary bypass grafting. 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 He has known cardiomyopathy with CHF with an ejection fraction of around 30%. He has has an ICD implantation about 3 years ago. At baseline, he does have dyspnea with only modest exertion. He also has chronic A. fib and is on Eliquis. He also has type [address] Hummel is reported that since his endoscopy and therapy by Dr. Fields, his H&H has been stable. He has evaluation included carotid duplex study suggesting high-grade right ICA stenosis. This was followed by CTA of the neck which confirmed a 95 to 97% proximal left ICA stenosis. Dr. Londono requested surgical consultation for this left ICA lesion. Patient does have a remote history of stroke which may have been related to his prior valvular disease, though none recently. This stroke, apparently, occurred immediately prior to his last cardiac surgery which was his aortic root replacement. He states he had his carotid surgery done the night before his root replacement. This was a left carotid endarterectomy. Review of Systems Const: Denies: fever(s) or chills Eyes: Denies: change in vision Card: Reports: palpitations, irregular heart rhythm, edema, swelling of feet/ankles, pre-syncope, dyspnea on exertion and orthopnea (Intermittently); Denies: chest pain Resp: Reports: dyspnea (With modest exertion); Denies: productive cough GI: Reports: hematochezia; Denies: abdominal pain, coffee ground emesis or dysphagia Neuro: Reports: other (He does describe some forgetfulness since his prior CVA) Psych: Reports: memory loss and difficulty concentrating; Denies: anxiety or depression Meds/Allergies Home Medications and Allergies Home Medications Medication Instructions Recorded Confirmed Last Taken Type apixaban 5 mg tablet 5 mg PO BID 03/31/20 03/31/20 03/31/20 History aspirin 81 mg tablet,delayed 81 mg PO DAILY 03/31/20 03/31/20 03/31/20 History release carvedilol 12.5 mg tablet 12.5 mg PO BID 03/31/20 03/31/20 03/31/20 History duloxetine 30 mg capsule,delayed 60 mg PO DAILY cap 03/31/20 03/31/20 03/31/20 History release empagliflozin 10 mg tablet 10 mg PO DAILY 30 Days #30 tab 03/31/20 03/31/20 Unknown Rx escitalopram oxalate 10 mg PO DAILY 03/31/20 03/31/20 03/31/20 History metformin 1,000 mg tablet 1,000 mg PO BID 03/31/20 03/31/20 03/31/20 History pantoprazole 40 mg tablet,delayed 40 mg PO DAILY 03/31/20 03/31/20 03/31/20 History release rosuvastatin 20 mg tablet 20 mg PO DAILY 03/31/20 03/31/20 03/31/20 History sacubitril 24 mg-valsartan 26 mg 1 tab PO BID 03/31/20 03/31/20 03/31/20 History tablet torsemide 100 mg tablet 100 mg PO DAILY #90 tab 03/31/20 03/31/20 03/31/20 Rx tramadol 37.5 mg-acetaminophen 325 1 tab PO BID PRN 03/31/20 03/31/20 03/31/20 History mg tablet Allergies Allergy/AdvReac Type Severity Reaction Status Date / Time No Known Allergies Allergy Unverified 03/31/20 14:13 Current Medications Current Medications Generic Name Dose Route Start Last Admin Trade Name Freq PRN Reason Stop Dose Admin Acetaminophen 650 mg 04/05/20 04:42 04/05/20 04:58 Tylenol PO 650 mg Q6H PRN Administration MILD PAIN Hydrocodone Bitart/Acetaminophen 1 tab 04/05/20 09:39 04/06/20 09:48 [place] 5-325 Mg PO 1 tab Q4H PRN Administration MODERATE PAIN Atorvastatin Calcium 80 mg 04/01/20 09:00 04/06/20 09:37 Lipitor PO 80 mg DAILY [facility] Administration Colchicine 0.6 mg 04/05/20 11:40 04/06/20 09:37 Colcrys PO 0.6 mg DAILY [facility] Administration Diphenhydramine HCl 50 mg 04/04/20 19:13 04/04/20 20:41 Benadryl PO 50 mg BEDTIME PRN Administration INSOMNIA Duloxetine HCl 60 mg 04/01/20 09:00 04/06/20 09:36 Cymbalta PO 60 mg DAILY [facility] Administration Escitalopram Oxalate 10 mg 04/02/20 09:00 04/06/20 09:36 Lexapro PO 10 mg DAILY [facility] Administration Heparin Sodium/Sodium Chloride 25,000 unit in 500 mls @ 21.391 mls/hr 04/04/20 20:15 04/05/20 20:21 Heparin Drip IV 9 unit/kg/hr .[id number] [facility] 21.4 mls/hr Administration 9 UNIT/KG/HR Insulin Aspart 0 unit 04/01/20 21:00 04/05/20 20:29 Novolog SUBCUT Not Given BEDTIME [facility] Protocol Insulin Aspart 0 unit 04/01/20 12:00 04/06/20 09:16 Novolog SUBCUT Not Given TIDWM [facility] Protocol Magnesium Lactate 84 mg 04/04/20 18:00 04/06/20 09:36 Mag-Tab Sr PO 84 mg BID [facility] Administration Pantoprazole Sodium 40 mg 04/01/20 09:00 04/06/20 09:42 Protonix IVP 40 mg BID [facility] Administration Potassium Chloride 20 meq 04/02/20 20:45 04/06/20 09:36 Klor-Con 10 PO 20 meq BID [facility] Administration Sacubitril/Valsartan 1 each 04/04/20 18:00 04/06/20 10:35 Entresto 24-26 Mg PO Not Given BID [facility] Senna/Docusate Sodium 2 tab 04/02/20 18:00 04/05/20 17:45 Senna-S PO 2 tab BID [facility] Administration Torsemide 100 mg 04/05/20 09:00 04/06/20 09:36 Demadex PO 100 mg DAILY [facility] Administration PFSH Acute PFSH: Medical History Atrial fibrillation AV malformation of gastrointestinal tract Bilateral carotid artery stenosis CAD (coronary artery disease) Carotid artery stenosis with cerebral infarction CHF (congestive heart failure) EF ~30% CVA (cerebral vascular accident) prior to cardiac surgery 2018, Left MCA, 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 Diabetes Dyslipidemia Endocarditis Gout Hypertension ICD (implantable cardioverter-defibrillator) in place possibly [facility] device Ischemic cardiomyopathy TIA (transient ischemic attack) Type 2 diabetes mellitus A1c 6.30 March 2020 Surgical History 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 H/O carotid endarterectomy Hx of aortic valve replacement bioprosthetic, 2013 Hx of CABG 1998, 5V Family History Other CAD (coronary artery disease) Cancer Chronic kidney disease (CKD) Diabetes Family history of premature coronary artery disease Hyperlipidemia Hypertension Stroke Social History Smoking and tobacco status: former smoker Alcohol intake: current Alcohol intake frequency: holidays/special occasions only Desire information about substance/drug rehabilitation?: No Housing: House Vitals/I&O/Wt Last Vital Signs Temp 98.0 F 04/06/20 08:00 Pulse 70 04/06/20 08:00 Resp 18 04/06/20 08:00 BP 96/61 04/06/20 08:00 Pulse Ox 94 04/06/20 08:00 04/05/20 04/06/20 04/06/20 22:59 06:59 14:59 Intake Total 980 / 1460 100 / 1560 Output Total 1150 / 1550 400 / 1950 375 / 375 Balance -170 / -90 -300 / -390 -375 / -375 Weight last 48 hrs Weight 116 lb 9.6 oz Physical Exam Const: COMMON NORMALS: patient oriented x3 Eye: COMMON NORMALS: conjunctivae normal and no scleral icterus GENERAL EYE: appearance normal, both eyes and all related structures CONJUNCTIVA: Yes conjunctivae normal Neck/C-Spine: COMMON NORMALS: full ROM and No carotid bruits GENERAL: Yes trachea midline OTHER: He does have a well healed left anterior lateral neck incision consistent with prior carotid endarterectomy Chest: COMMONS NORMALS: normal inspection of the chest and normal palpation of entire chest wall Resp: COMMON NORMALS: normal respiratory effort, No retractions, No use of accessory muscles, clear to auscultation bilaterally and percussion normal EFFORT & INSPECTION: Yes able to speak in complete sentences AUSCULTATION: clear to auscultation bilaterally PERCUSSION: percussion normal Cardio: COMMON NORMALS: S1 normal heart sound present RHYTHM: abnormal rhythm irregularly irregular HEART SOUNDS: S1 normal heart sound present, no gallops, no murmurs and no rubs Extremity: COMMON NORMALS: capillary refill normal and no clubbing, cyanosis or edema Neuro: COMMON NORMALS: patient oriented x3, no focal motor deficits and no sensory deficits noted Psych: COMMON NORMALS: mental status grossly normal, Normal thought process present and speech normal APPEARANCE: Yes grossly normal SPEECH: Yes normal speech MOOD & AFFECT: Yes euthymic mood THOUGHT PROCESS: Normal thought process present ATTENTION/CONCENTRATION: Yes attention grossly intact JUDGEMENT: Good judgement present (Psych) A&P Assessment and plan (1) Stenosis of left internal carotid artery: Pleasant 59-year-old gentleman with a complex past medical history including 3 open heart surgeries including coronary bypass surgery several years ago, aortic valve replacement, 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 He now has documented 95 to 97% restenosis of his left proximal ICA. Given his complex past medical history along with now restenosis after prior carotid endarterectomy, I would recommend consideration for tertiary referral for carotid stenting of this left internal carotid artery. Rationale for this was carefully discussed with Mr. Varghese. I will confer further with Dr. Londono and Dr. Ureña. 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
[2020-04-06] MEDS: sennosides-docusate Tablet 2 TAB PO ×2 (11:09→17:39)
[2020-04-06 11:19] LABS: Glucose Point of Care 227 mg/dL (70-110)
[2020-04-06] MEDS: sacubitril/valsartan 24-26 mg Tablet 1 EACH PO (12:15)
--- NOTE | 2020-04-06 12:17 | PC.NURSE ---
AM dose of Entresto given as directed during morning rounds.
--- NOTE | 2020-04-06 13:19 | PC.NURSE ---
Difficulty finding words is not a change in patients status; however, patient states, This is left over from my stroke, when having difficulty finding the right words when communicating with Dr. Gomez. Patient speech still clear and appropriate. No visitors per Dr. Garcia.
--- NOTE | 2020-04-06 14:27 | PM.TDS ---
Transfer Summary Providers Date of Admission: 04/01/20 10:51 Date of Discharge: 04/06/20 Attending Provider at Admission: Dereje Reyes MD Attending Provider at Transfer: John Garcia MD Anticipated Date of Transfer: Anticipated date of transfer: 04/06/20 Receiving Facility & Provider: Receiving Provider: [Dr. 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, left ankle and foot (3) AVM (arteriovenous malformation) of colon with hemorrhage: Status: Acute (4) Chronic anticoagulation: Status: Acute Problem details: eliquis > HELD 04/11 due to GI bleed/anemia (5) Dyslipidemia: Status: Acute (6) Hx of aortic valve replacement: Status: Acute Problem details: bioprosthetic, 2012 (7) Acute kidney injury: Status: Acute (8) Type 2 diabetes mellitus: Status: Acute Problem details: A1c 6.30 March 2020 Qualifiers: Diabetes mellitus termite control representative insulin use: with fdc use Diabetes mellitus complication status: with hyperglycemia Qualified Code(s): E11.65 - Type 2 diabetes mellitus with hyperglycemia; Z79.4 - penitentiary (current) use of insulin (9) Ischemic cardiomyopathy: Status: Acute (10) ICD (implantable cardioverter-defibrillator) in place: Status: Acute Problem details: possibly St Ho device (11) CHF (congestive heart failure): Status: Acute Problem details: EF ~30% Qualifiers: Heart failure type: systolic Heart failure chronicity: chronic Qualified Code(s): I50.22 - Chronic systolic (congestive) heart failure (12) CVA (cerebral vascular accident): Status: Acute Problem details: prior to cardiac surgery 2018, Left MCA, 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 Qualifiers: CVA mechanism: embolism Precerebral and cerebral artery: middle cerebral artery Laterality of affected vessel: right Qualified Code(s): I63.411 - Cerebral infarction due to embolism of right middle cerebral artery (13) Bilateral carotid artery stenosis: Status: Acute Reason for Visit Reason for Visit: possible gi bleed Hospital Course Discharge Summary: Abhay Varghese is a 69 year old male with complex cardiac history with A. 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 Patient has established care with Dr. Londono after moving to [place] from [facility]. He has seen Dr. Londono for worsening shortness of breath, he was asked to increase his torsemide for 40 mg twice a day to 100 mg once a day. Patient is stating that he has been experiencing orthopnea, PND shortness of breath on mild exertion, he gets winded very easily is walking from one room to another. He has been leading a sedentary lifestyle. At baseline he has been experiencing constipation, for last 1 to 2 months he has been experiencing bright bleed per rectum as well, he has not notified any physician and kept taking his Eliquis and aspirin. Patient is stating that almost every bowel movement he has been noticing bright red blood per rectum. On admission his Eliquis and aspirin were withheld. Patient was transfused 4 units of PRBC. He underwent colonoscopy which showed small AVM in the ascending colon along with clot. The AVM was injected with epinephrine and clipped by Dr. Fields. Given his extensive history of CVA patient underwent carotid ultrasound which was concerning for high-grade stenosis after which he underwent CTA of the neck which was consistent with severe left internal carotid artery stenosis up to 95 to 97%. Risk factors of possible stroke given the high-grade stenosis while being off anticoagulation and possible another GI bleed while being on anticoagulation were discussed with the patient and medicine demerits were discussed and he was started on heparin drip. Hemoglobin was continuously monitored and remained stable at around 7.9 on the day of discharge. For further management of left carotid stenosis patient was seen by cardiothoracic surgery. Given his complex past medical history along with restenosis of prior carotid endarterectomy it was recommended for possible transfer to tertiary center for carotid stenting of his left internal carotid artery. Given all the above patient's case was discussed with Dr. Christiansen at [facility] who graciously accepted to take care of the acute needs. Patient has been transferred to [facility] in [place] for further treatment in hemodynamically stable condition. Physical Exam Narrative: EXAM NARRATIVE: Head to toe examination Elderly male wearing facemask lying comfortable in his bed Saturating well on room Patient has multiple precancerous lesion on his forehead, nose and sun exposed areas No active distress S1, S2 variable Signs of heart failure present Bilateral breath sounds without adventitious sounds diminished breath sounds at the bases Abdomen soft, distended, nontender, bowel sound present, visceral obesity Neurologically nonfocal Lower extremity no signs of edema gangrene ulcer Appropriate mood and affect EOMI, PERRLA Multiple macular rash on his trunk TS Data Data Completed and Pending: Completed Studies During Hospitalization Category Date Time Status CT abdomen pelvis wo con [id number] Urge nt Cat Scan 03/31/20 21:[address] angio neck 704 98 Routine Cat Scan 04/05/20 06:00 Completed XR chest 1V barbara ble [id number] Stat Exams 03/31/20 20:30 Completed CV carotid duplex BI* [id number] Routine Ultrasound 04/03/20 23:15 Completed CV echo complete* [id number] Routine Ultrasound 04/01/20 09:19 Completed Pending at discharge Category Date Time Status Basic Metabolic P chidi AM LABS Lab 04/07/20 04:00 Ordered Complete Blood Co unt w/Auto AM LABS Lab 04/07/20 04:00 Ordered Leukocyte Reduced RBC Routine Lab 04/06/20 04:39 Results Type and Screen R outine Lab 04/06/20 04:39 Results Labs from last 24 hours 04/06/20 04/06/20 04/06/20 10:47 06:15 04:52 WBC RBC Hgb Hct MCV MCH MCHC RDW Plt Count MPV Neut % (Auto) Lymph % (Auto) [place] % (Auto) Eos % (Auto) Baso % (Auto) Neut # (Auto) Lymph # (Auto) [place] # (Auto) Eos # (Auto) Baso # (Auto) Nucleated RBC % (a uto) Nucleated RBCs # APTT Sodium 135 L Potassium 4.2 Chloride 95 L Carbon Dioxide 30 H Anion Gap 14.2 BUN 28 H Creatinine 1.7 H GFR Calculation 40.4 L Glucose 130 H POC Glucose 227 134 Calculated Osmolal ity 279 L Calcium 9.2 Blood Type Rho(D) Type Antibody Screen Crossmatch 0604/06/20 04/05/20 04:52 04:52 20:26 WBC 7.0 RBC 3.33 L Hgb 7.8 L Hct 27.4 L MCV 82.3 MCH 23.4 L MCHC 28.5 L RDW 20.6 H Plt Count 196 MPV 9.5 Neut % (Auto) 70.5 Lymph % (Auto) 12.7 Pendleton % (Auto) 13.6 Eos % (Auto) 2.1 Baso % (Auto) 0.7 Neut # (Auto) 4.9 Lymph # (Auto) 0.9 Pendleton # (Auto) 1.0 H Eos # (Auto) 0.2 Baso # (Auto) 0.1 Nucleated RBC % (a uto) 0.3 Nucleated RBCs # 0.0 APTT 46.9 H Sodium Potassium Chloride Carbon Dioxide Anion Gap BUN Creatinine GFR Calculation Glucose POC Glucose 137 Calculated Osmolal ity Calcium Blood Type Rho(D) Type Antibody Screen Crossmatch 04/05/20 04/05/20 04/05/20 19:44 16:10 16:10 WBC 7.7 RBC 3.20 L Hgb 7.5 L Hct 26.5 L MCV 82.8 MCH 23.4 L MCHC 28.3 L RDW 20.4 H Plt Count 219 MPV 11.0 H Neut % (Auto) 72.4 Lymph % (Auto) 10.8 Pend[place] % (Auto) 14.8 Eos % (Auto) 1.2 Baso % (Auto) 0.7 Neut # (Auto) 5.6 Lymph # (Auto) 0.8 Pendleton # (Auto) 1.1 H Eos # (Auto) 0.1 Baso # (Auto) 0.1 Nucleated RBC % (a uto) 0.3 Nucleated RBCs # 0.0 APTT 44.2 H Sodium Potassium Chloride Carbon Dioxide Anion Gap BUN Creatinine GFR Calculation Glucose POC Glucose Calculated Osmolal ity Calcium Blood Type A Negative Rho(D) Type Negative Antibody Screen Negative Crossmatch See Detail 04/05/20 16:02 WBC RBC Hgb Hct MCV MCH MCHC RDW Plt Count MPV Neut % (Auto) Lymph % (Auto) Pendleton % (Auto) Eos % (Auto) Baso % (Auto) Neut # (Auto) Lymph # (Auto) Pendleton # (Auto) Eos # (Auto) Baso # (Auto) Nucleated RBC % (a uto) Nucleated RBCs # APTT Sodium Potassium Chloride Carbon Dioxide Anion Gap BUN Creatinine GFR Calculation Glucose POC Glucose 236 Calculated Osmolal ity Calcium Blood Type Rho(D) Type Antibody Screen Crossmatch Imaging^: Echo: Radiologist's impression: FINDINGS Left Ventricle Midly dilated left ventricle with diminished ejection fraction of 30 to 35%. Diffuse hypokinesia of the left ventricle. Right Ventricle Mildly increased right ventricular size. Mildly decreased right ventricular systolic function. Pacemaker/ICD wire in the right ventricle Right Atrium Mildly increased right atrial size. Pacemaker wires in the right atrium Left Atrium Mildly increased left atrial size. Mitral Valve Mild mitral valve regurgitation. Aortic Valve Trace aortic valve regurgitation. Tricuspid Valve Trace tricuspid valve regurgitation. Estimated pulmonary artery peak systolic pressure of 46 mmHg Pulmonic Valve Not visualized well Pericardium Dilated inferior vena cava with a diameter of 2.7 cm Aorta Normal aortic annulus size. CONCLUSIONS Dilated left ventricle with diminished ejection fraction of 30 to 35%. Diffuse hypokinesia of the left ventricle. Mildly increased right ventricular size. Mildly decreased right ventricular systolic function. Pacemaker/ICD wire in the right ventricle. Mild biatrial enlargement Mild mitral with trace of aortic and tricuspid regurgitation Mild pulmonary hypertension with an estimated pulmonary artery peak systolic pressure of 46 mmHg ICD/pacemaker wire in the right atrium and right ventricle No significant pericardial effusion. No similar previous studies are available for comparison Dr Sascha Londono MD [facility] (Electronically Signed) Final Date: 01 April 2020 18:10 CT Abd/Pel: Radiologist's impression: IMPRESSION: 1. Negative for acute inflammatory process 2. Moderate bilateral pleural effusions. 3. Bibasilar atelectasis 4. Sternotomy wires. 5. Diverticulosis without diverticulitis. CTA of the head and neck: Radiologist's impression: CT/CT angio neck [id number] IMPRESSION: 1. Severe left internal carotid artery stenosis. 2. Chronic left ROBOTIC TOY INVENTOR infarction. 3. Severe stenosis right external carotid artery origin. 4. Moderate bilateral pleural effusions. 5. Probable pulmonary arterial hypertension. Clinical correlation is recommended. 6. Noncalcified right upper lobe pulmonary nodule. For patients at low risk (minimal or absent history of smoking and of other known risk factors), no routine follow-up is indicated. For patients at high risk (history of smoking or of other known risk factors), consider optional CT at 12 months. (Lupillo et al., Fleischner Society, 2017). Addt'l Data from Hospital Stay: Carotid ultrasound FINDINGS Low velocity monophasic Doppler waveform in the left common carotid artery Low velocity delayed peak and waveforms in the left distal internal carotid artery Abnormal ICA/CCA ratio suggestive on the left side Elevated velocity in the right external carotid artery Negative for the vertebral arteries bilaterally Elevated velocity in the left subclavian artery CONCLUSIONS 1. Features suggestive of high-grade stenosis in the left proximal ICA 2. Elevated velocity in the external carotid artery on the left side, suggestive of hemodynamically significant stenosis. 3. Elevated velocity in the left subclavian artery, suggest hemodynamically significant stenosis Consider CTA to further evaluate the arch vessels and the left ICA No similar previous studies are available for comparison Dr Sascha Londono MD [facility] (Electronically Signed) Final Date: 03 April 2020 17:47 Vitals: Last Vital Signs Temp 98.1 F 04/06/20 10:46 Pulse 70 04/06/20 10:46 Resp 15 04/06/20 10:46 BP 102/67 04/06/20 10:46 Pulse Ox 96 04/06/20 10:46 TS Medications Medications Home Medications apixaban 5 mg tablet 5 mg PO BID 03/31/20 [History Confirmed 03/31/20] aspirin 81 mg tablet,delayed release 81 mg PO DAILY 03/31/20 [History Confirmed 03/31/20] carvedilol 12.5 mg tablet 12.5 mg PO BID 03/31/20 [History Confirmed 03/31/20] duloxetine 30 mg capsule,delayed release 60 mg PO DAILY cap 03/31/20 [History Confirmed 03/31/20] empagliflozin 10 mg tablet 10 mg PO DAILY 30 Days #30 tab 03/31/20 [Rx Confirmed 03/31/20] escitalopram oxalate 10 mg PO DAILY 03/31/20 [History Confirmed 03/31/20] metformin 1,000 mg tablet 1,000 mg PO BID 03/31/20 [History Confirmed 03/31/20] pantoprazole 40 mg tablet,delayed release 40 mg PO DAILY 03/31/20 [History Confirmed 03/31/20] rosuvastatin 20 mg tablet 20 mg PO DAILY 03/31/20 [History Confirmed 03/31/20] sacubitril 24 mg-valsartan 26 mg tablet 1 tab PO BID 03/31/20 [History Confirmed 03/31/20] torsemide 100 mg tablet 100 mg PO DAILY #90 tab 03/31/20 [Rx Confirmed 03/31/20] tramadol 37.5 mg-acetaminophen 325 mg tablet 1 tab PO BID PRN 03/31/20 [History Confirmed 03/31/20] Active Medications Acetaminophen (Tylenol) 650 mg PO Q6H PRN PRN Reason: MILD PAIN Last Admin: 04/05/20 04:58 Dose: 650 mg Documented by: Hydrocodone Bitart/Acetaminophen (Rienzi 5-325 Mg) 1 tab PO Q4H PRN PRN Reason: MODERATE PAIN Last Admin: 04/06/20 09:48 Dose: 1 tab Documented by: Atorvastatin Calcium (Lipitor) 80 mg PO DAILY [facility] Last Admin: 04/06/20 09:37 Dose: 80 mg Documented by: Bisacodyl (Dulcolax) 10 mg PO DAILY PRN PRN Reason: CONSTIPATION Carvedilol (Coreg) 3.125 mg PO 0800,1999 [facility] Colchicine (Colcrys) 0.6 mg PO DAILY [facility] Last Admin: 04/06/20 09:37 Dose: 0.6 mg Documented by: Dextrose (D50w) 25 ml IVP ONCE PRN; Protocol PRN Reason: hypoglycemia protocol Dextrose (D50w) 50 ml IVP PRN PRN; Protocol PRN Reason: hypoglycemia protocol Diphenhydramine HCl (Benadryl) 50 mg PO BEDTIME PRN PRN Reason: INSOMNIA Last Admin: 04/04/20 20:41 Dose: 50 mg Documented by: Duloxetine HCl (Cymbalta) 60 mg PO DAILY [facility] Last Admin: 04/06/20 09:36 Dose: 60 mg Documented by: Escitalopram Oxalate (Lexapro) 10 mg PO DAILY [facility] Last Admin: 04/06/20 09:36 Dose: 10 mg Documented by: Glucagon (Glucagen) 1 mg IM ONCE PRN; Protocol PRN Reason: Adult Acute Hypoglycemia Prot. Dextrose (D5w) 500 mls @ 100 mls/hr IV ONCE PRN; Protocol PRN Reason: Adult Acute Hypoglycemia Prot Heparin Sodium/Sodium Chloride (Heparin Drip) 25,000 unit in 500 mls @ 21.391 mls/hr IV .[id number] [facility] Last Admin: 04/05/20 20:21 Dose: 9 unit/kg/hr, 21.4 mls/hr Documented by: Insulin Aspart (Novolog) 0 unit SUBCUT BEDTIME [facility]; Protocol Last Admin: 04/05/20 20:29 Dose: Not Given Documented by: Insulin Aspart (Novolog) 0 unit SUBCUT TIDWM [facility]; Protocol Last Admin: 04/06/20 12:09 Dose: 6 unit Documented by: Magnesium Lactate (Mag-Tab Sr) 84 mg PO BID [facility] Last Admin: 04/06/20 09:36 Dose: 84 mg Documented by: Pantoprazole Sodium (Protonix) 40 mg IVP BID [facility] Last Admin: 04/06/20 09:42 Dose: 40 mg Documented by: Potassium Chloride (Klor-Con 10) 20 meq PO BID [facility] Last Admin: 04/06/20 09:36 Dose: 20 meq Documented by: Sacubitril/Valsartan (Entresto 24-26 Mg) 1 each PO BID [facility] Last Admin: 04/06/20 12:15 Dose: 1 each Documented by: Senna/Docusate Sodium (Senna-S) 2 tab PO BID [facility] Last Admin: 04/06/20 11:09 Dose: 2 tab Documented by: Torsemide (Demadex) 100 mg PO DAILY [facility] Last Admin: 04/06/20 09:36 Dose: 100 mg Documented by: Tramadol HCl (Ultram) 50 mg PO Q6H PRN PRN Reason: MILD TO MODERATE PAIN Discharge Plan Discharge Patient Disposition: Xfer Other Condition: Stable Prescriptions: No Action carvedilol 12.5 mg tablet 12.5 mg PO BID RF: 0 Eliquis 5 mg tablet 5 mg PO BID RF: 0 duloxetine 30 mg capsule,delayed release(DR/EC) 60 mg PO DAILY RF: 0 metformin 1,000 mg tablet 1,000 mg PO BID RF: 0 tramadol-acetaminophen 37.5-325 mg tablet 1 tab PO BID PRN (Reason: UNKNOWN) RF: 0 Entresto 24-26 mg tablet 1 tab PO BID RF: 0 pantoprazole 40 mg tablet,delayed release (DR/EC) 40 mg PO DAILY RF: 0 rosuvastatin 20 mg tablet 20 mg PO DAILY RF: 0 aspirin [Adult Low Dose Aspirin] 81 mg tablet,delayed release (DR/EC) 81 mg PO DAILY RF: 0 Jardiance 10 mg tablet 10 mg PO DAILY 30 Days Qty: 30 RF: 5 torsemide 100 mg tablet 100 mg PO DAILY Qty: 90 RF: 0 escitalopram oxalate 10 mg Tablet 10 mg PO DAILY RF: 0 Discharge Orders: Transfer Out of Facility (Order); Ordered 04/06/20 Ordered By: John Garcia Referrals: Teo Fields MD [Physician] - 1 month Transfer Attestations Time Spent in Transfer Care*: greater than 30 min Specific Discharge Activities: Specific discharge activities: educating patient, educating and/or supporting family/caregiver, discussing with pcp/other providers, discussing with rehabilitation caseworker/social workers/dc planners, documenting/other paperwork and evaluating patient/reviewing data Status at Transfer: Cognitive status at transfer: cognitively intact, Behavioral status at transfer: cooperative, Functional status at transfer: other assisted ambulation Overall status at transfer: patient is progressing back to baseline Quality Metrics Clinical Quality Measures: During this hospital stay, did patient experience: None Coding Level of Care Code Acute Reconstructive Dentist for Chg Fwd Diagnoses Stenosis of left internal carotid artery I65.22 Gout M10.272 Gout site: foot Gout etiology: drug-induced Chronicity: acute Laterality: left AVM (arteriovenous malformation) of colon with hemorrhage K55.21 Chronic anticoagulation Z79.01 Dyslipidemia E78.5 Hx of aortic valve replacement Z95.2 Acute kidney injury N17.9 Type 2 diabetes mellitus E11.65; Z79.4 Diabetes mellitus termite control representative insulin use: with termite control representative use Diabetes mellitus complication status: with hyperglycemia Ischemic cardiomyopathy I25.5 ICD (implantable cardioverter-defibrillator) in place Z95.810 CHF (congestive heart failure) I50.22 Heart failure type: systolic Heart failure chronicity: chronic CVA (cerebral vascular accident) I63.411 CVA mechanism: embolism Precerebral and cerebral artery: middle cerebral artery Laterality of affected vessel: right Bilateral carotid artery stenosis I65.23
[2020-04-06 15:32] VITALS: BP 115/76; PULSE 70; RESP 16; TEMP 36.6; O2SAT 98
[2020-04-06 16:30] LABS: Glucose Point of Care 126 mg/dL (70-110)
--- NOTE | 2020-04-06 19:00 | PC.NURSE ---
Reassessment of pain med not able to be done due to patient transferring out of facility right after administration.
== END 2020-04-06 19:55 | disposition short-term general hospital (02) | DRG 377 ==
LOC: ER 21:28 → CSU 04-01 07:32
PROVIDERS: Hospitalist; Admitting Provider Internal Medicine; Emergency Provider Emergency Medicine; PCP Internal Medicine; Visit Provider Student in an Organized Health Care Education/Training Program
PROC: 0DJ08ZZ Inspection of Upper Intestinal Tract, Via Natural or Artificial Opening Endoscopic (ICD-10-PCS; CPT 43235; principal; 2020-04-03 11:15)
PROC: 0DJD8ZZ Inspection of Lower Intestinal Tract, Via Natural or Artificial Opening Endoscopic (ICD-10-PCS; CPT 45378; 2020-04-03 11:15)
DX: K55.21 Angiodysplasia of colon with hemorrhage (principal); I50.23 Acute on chronic systolic (congestive) heart failure; N17.9 Acute kidney failure, unspecified; I13.0 Hypertensive heart and chronic kidney disease with heart failure and stage 1 through stage 4 chronic kidney disease, or unspecified chronic kidney disease; I48.21 Permanent atrial fibrillation; D50.0 Iron deficiency anemia secondary to blood loss (chronic); I65.23 Occlusion and stenosis of bilateral carotid arteries; M10.272 Drug-induced gout, left ankle and foot; Z79.01 Long term (current) use of anticoagulants; E78.5 Hyperlipidemia, unspecified; Z95.2 Presence of prosthetic heart valve; E11.65 Type 2 diabetes mellitus with hyperglycemia; I25.5 Ischemic cardiomyopathy; Z95.810 Presence of automatic (implantable) cardiac defibrillator; Z86.73 Personal history of transient ischemic attack (TIA), and cerebral infarction without residual deficits; Z95.1 Presence of aortocoronary bypass graft; Z95.5 Presence of coronary angioplasty implant and graft; K59.00 Constipation, unspecified; Z79.82 Long term (current) use of aspirin; Z79.84 Long term (current) use of oral hypoglycemic drugs; I25.10 Atherosclerotic heart disease of native coronary artery without angina pectoris; Z87.891 Personal history of nicotine dependence; N18.9 Chronic kidney disease, unspecified; E11.22 Type 2 diabetes mellitus with diabetic chronic kidney disease; D49.2 Neoplasm of unspecified behavior of bone, soft tissue, and skin
CPT/HCPCS: 12345; 36415; 36416; 36430; 36600; 45381; 70498; 71045; 74176; 80048; 80053; 80061; 81003; 82728; 82803; 82962; 83036; 83540; 83605; 83690; 83735; 83880; 84100; 84443; 84484; 84550; 85014; 85018; 85025; 85610; 85730; 86850; 86900; 86920; 93005; 93306; 93880; 96372; 96375; 99282; A9270; C9113; G0378; J0171; J1644; J1815; J1940; J2001; J2250; J7030; P9016; Q0163; Q9967

== ENCOUNTER → 2020-04-21 11:30 | Outpatient (BNVA) | payer MEDICARE, SELFPAY | PROVIDERS: PCP Internal Medicine; Visit Provider Internal Medicine Cardiovascular Disease | DX: I50.9 Heart failure, unspecified (principal); Z79.01 Long term (current) use of anticoagulants; E78.5 Hyperlipidemia, unspecified; I35.0 Nonrheumatic aortic (valve) stenosis; I65.23 Occlusion and stenosis of bilateral carotid arteries; E11.9 Type 2 diabetes mellitus without complications; R07.9 Chest pain, unspecified; I50.33 Acute on chronic diastolic (congestive) heart failure; I50.23 Acute on chronic systolic (congestive) heart failure; D64.9 Anemia, unspecified; R06.02 Shortness of breath; K55.21 Angiodysplasia of colon with hemorrhage; I25.5 Ischemic cardiomyopathy; Z95.2 Presence of prosthetic heart valve; Z95.810 Presence of automatic (implantable) cardiac defibrillator; I48.21 Permanent atrial fibrillation; I25.10 Atherosclerotic heart disease of native coronary artery without angina pectoris | CPT/HCPCS: 80048; 83880; 85025 ==

== ENCOUNTER 2020-10-12 10:37 | Inpatient (IN) | payer MEDICARE, SELFPAY ==
[2020-10-12] VITALS (7 sets, daily range): BP systolic 101–144; BP diastolic 48–78; PULSE 71–78; RESP 12–20; TEMP 36.6–36.7; O2SAT 95–100; BMI 33.0
--- NOTE | 2020-10-12 10:59 | CT_ITS ---
WS: [id number] CT HEAD NONCONTRAST HISTORY: Altered mental status TECHNIQUE: Contiguous axial imaging performed through the brain in 2.5 mm imaging. Bone and soft tiss ue windows. Sagittal and coronal reformats reviewed. All CT scans at [facility] use at ast one of these dose optimization techniques: automated exposure control; mA and/or kV adjustment pe r patient size (includes targeted exams where dose is matched to clinical indication); or iterative r econstruction. DLP: 1023.99 mGy.cm COMPARISON: None available. No acute intracranial hemorrhage, midline shift or mass effect. There is a large area of encephalomalacia involving the LEFT occipital lobe. No mass effect or midlin e shift. Additional areas of decreased attenuation from chronic microvascular ischemic disease. No ac cher-ae heights infarcts are identified. There is probably a small lacunar infarct at the RIGHT caudate head also . Mild bilateral cerebral atrophy. Additional infarct involving the LEFT frontoparietal junction. Ventricles: Exvacuodilatation of the LEFT lateral ventricle from the prior infarcts and volume loss. Paranasal sinuses: As visualized are clear. Mastoid air cells: Well pneumatized. Calvarium and scalp: Skull is intact with no soft tissue edema or swelling. Moderate plaque within the intracranial carotid arteries. CT/CT head wo con* [id number] IMPRESSION: 1. No acute intracranial hemorrhage or infarct. 2. Remote large LEFT CRANE CHASER infarct. Additional smaller infarct involving the LEF T frontoparietal junction. 3. Mild atrophy and chronic microvascular ischemic change.
--- NOTE | 2020-10-12 11:00 | CT_ITS ---
WS: [id number] CT CERVICAL SPINE HISTORY: PAIN TECHNIQUE: Contiguous 2.5 mm axial imaging performed through the entire cervical spine. Sagittal and coronal reformats also performed. All CT scans at [facility] use at least one of these do se optimization techniques: automated exposure control; mA and/or kV adjustment per patient size (inc ludes targeted exams where dose is matched to clinical indication); or iterative reconstruction. DLP: 881.61 mGy.cm COMPARISON: None available. Mild RIGHT convex curvature of the cervical spine. Posterior alignment is normal. Craniocervical junc tion is normal. Mild disc space narrowing and small osteophytes. C2-C3: Normal. C3-C4: Osteophytic ridging resulting in moderate bilateral foraminal stenosis. C4-C5: Central disc protrusion is partially calcified with bilateral facet joint arthritis. Encroachm ent upon the thecal sac by the partially calcified disc protrusion. Moderate central and bilateral fo raminal stenosis. C5-C6: Moderate annular disc bulging and osteophytic ridging. Mild central and RIGHT foraminal stenos is with moderate to severe LEFT foraminal stenosis. C6-C7: Mild osteophytic ridging without stenosis. C7-T1: Mild osteophytic ridging without significant stenosis. Lung apices are clear. Heavy calcification within the great vessels. LEFT carotid stent. Heavy calcif ication within the vertebral arteries. CT/CT cervical spin wo con* [id number] IMPRESSION: 1. No cervical spine fracture. 2. Moderate size central disc protrusion at C4-5 and osteophytic ridging resul ting in moderate central and bilateral foraminal stenosis. 3. Moderate to severe LEFT foraminal stenosis at C5-6. 4. Moderate bilateral foraminal stenosis at C3-4.
--- NOTE | 2020-10-12 11:00 | ECG_ITS ---
[facility] Test Date: 2020-10-12 Pat Name: Abhay Varghese Department: Room: Gender: Male Gate Guard: : 1950 Requested By: Doretha Lynch Order Number: [id number] Taylor MD: Kirby Saldivar M.D. Measurements Intervals [place]set Rate: 78 P: ME: QRS: 46 QRSD: 124 T: 192 QT: 424 QTc: 484 Interpretive Statements ELECTRONIC VENTRICULAR PACEMAKER Compared to ECG 04/01/2020 03:07:21 No significant changes are noted Electronically Signed On 10-13-2020 9:43:27 ANGIO TECHNOLOGIST by Kirby Saldivar M.D. [id number]
--- NOTE | 2020-10-12 11:08 | ED_ITS ---
HPI - Altered Mental Status General: Chief Complaint: Altered Mental Status Stated Complaint: AMS Time Seen by Provider: 10/12/20 10:59 Source: patient and family Limitations: altered mental status History of Present Illness: HPI narrative: Abhay is a 70-year-old male who comes in after he was found on the ground confused and altered at 10 AM. Patient was believed to have taken his trash out at 630 this morning and he was believed to be in his normal state of health then. Patient states shortly after coming inside he was going back to his bed when he got dizzy and I think I passed out . Patient states he remembers rolling around on the ground in his room. He denies any preceding headache, chest pain, palpitations, back pain, abdominal pain, flank pain, extremity pain, or lateralizing weakness. Patient was able to be aroused slowly. He states he still feels weak all over but he does not notice weakness on one side more than another. He still states he feels lightheaded which she describes as dizzy. He does not describe room spinning dizziness at rest. Patient's last known well time is believed to be 630 this morning. Patient's history is guarded at this time as he seems to tanesha mber some things but cannot remember others. Review of Systems General: Reports: ROS unobtainable due to mental status (Patient confused pertinent positives and negatives noted in HPI) [facility] ED PFSH: Medical History (Updated 10/12/20 @ 14:26 by Doretha Montemayor) Atherosclerotic heart disease of [place] coronary artery without angina pectoris Atrial fibrillation AV malformation of gastrointestinal tract Bilateral carotid artery stenosis CAD (coronary artery disease) Carotid artery stenosis with cerebral infarction CHF (congestive heart failure) EF ~30% CVA (cerebral vascular accident) prior to cardiac surgery 2018, Left MCA, 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 Diabetes Dyslipidemia Endocarditis Gout Hypertension ICD (implantable cardioverter-defibrillator) in place possibly [facility] device Ischemic cardiomyopathy TIA (transient ischemic attack) Type 2 diabetes mellitus A1c 6.30 March 2020 Surgical History 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 H/O carotid endarterectomy Hx of aortic valve replacement bioprosthetic, 2013 Hx of CABG 1998, 5V Family History Other CAD (coronary artery disease) Cancer Chronic kidney disease (CKD) Diabetes Family history of premature coronary artery disease Hyperlipidemia Hypertension Stroke Social History Smoking and tobacco status: former smoker Alcohol intake: current Alcohol intake frequency: holidays/special occasions only Desire information about substance/drug rehabilitation?: No Housing: House Physical Exam Const: COMMON NORMALS: no acute distress, no limitations and alert GENERAL APPEARANCE: cooperative HENMT: COMMON NORMALS: normocephalic, atraumatic, external ears normal, EAC's normal and Normal external nose present HEAD & SCALP: normal to inspection, normocephalic and atraumatic FACE & SINUS: normal facial exam and face symmetric NOSE: Normal external nose present and Normal nares present EXTERNAL EAR: Yes external ears normal EXTERNAL AUDITORY CANAL: EAC's normal MOUTH: Normal oral and palatal mucosa present, lip normal and tongue normal Eye: COMMON NORMALS: Equal, round and reactive pupils present and conjunctivae normal GENERAL EYE: appearance normal, both eyes and all related structures ALIGNMENT: Yes alignment normal PERIORBITAL: periorbital findings normal EYELID: eyelids normal CONJUNCTIVA: Yes conjunctivae normal SCLERA: sclerae normal PUPIL: Yes Equal, round and reactive pupils present Neck/C-Spine: COMMON NORMALS: full ROM, no lymphadenopathy, supple, no meningeal signs and no JVD GENERAL: Yes normal visual inspection and Yes trachea midline Chest: COMMONS NORMALS: normal inspection of the chest and normal palpation of entire chest wall Resp: COMMON NORMALS: normal respiratory effort, No retractions, No use of accessory muscles and clear to auscultation bilaterally EFFORT & INSPECTION: Yes able to speak in complete sentences and Yes symmetric chest movement AUSCULTATION: clear to auscultation bilaterally, no crackles, no rales, no rhonchi and no wheezes Cardio: COMMON NORMALS: no JVD, regular rate, regular rhythm, S1 normal heart sound present and S2 normal heart sound present RATE: regular rate RHYTHM: regular rhythm HEART SOUNDS: S1 normal heart sound present, S2 normal heart sound present, no click, no gallops, no murmurs and no rubs GI: COMMON NORMALS: Soft to palpation and No hepatosplenomegaly present PALPATION: Yes Soft to palpation, No Tenderness to palpation present (GI), No Guarding due to palpation present (GI), No Rigid due to palpation, Yes No hepatosplenomegaly present, No Hernia present, No Palpable mass present and No Pulsatile mass present : COMMON NORMALS: Yes no CVA tenderness BLADDER/KIDNEY EXAM: Yes no CVA tenderness Back/Pelvis: COMMON NORMALS: no CVA tenderness, thoracic and lumbar spine normal to inspection, no thoracic nor lumbar tenderness and thoraco-lumbar ROM normal Extremity: COMMON NORMALS: normal to inspection, full ROM, capillary refill normal, no joint enlargement, no clubbing, cyanosis or edema and no calf tenderness Neuro: MELODIE COMA SCALE: document GCS findings [place] coma scale eye opening: Spontaneous Melodie coma scale verbal response: Confused [place] coma scale motor response: Obey commands [place] coma scale total score: 14 COMMON NORMALS: CN's II-XII intact bilaterally, moves all extremities, no focal motor deficits and no sensory deficits noted SENSORIUM/ORIENTATION: Yes alert MENINGEAL SIGNS: Yes no meningeal signs SPEECH: speech normal Skin: COMMON NORMALS: no rashes or lesions noted, turgor normal, no jaundice, no petechiae and no mottling GENERAL SKIN EXAM: no rashes or lesions noted and turgor normal Course Vital Signs: Vital signs: Vital Signs Pulse Rate 75 10/12/20 13:15 Respiratory Rate 20 H 10/12/20 13:15 Blood Pressure 144/78 10/12/20 13:15 Pulse Oximetry 100 10/12/20 13:15 MDM - Altered Mental Status MDM Narrative: Medical decision making narrative: Abhay is a nice 70-year-old male who comes in with a spell of either syncope or a fall with significant loss of consciousness. We have tried interrogate his pacemaker but the interpretation has not been resulted yet from [facility]. I have endorsed the case to Dr. Camarillo agrees to meet for further evaluation and care. Lab Data: Attestation: I reviewed the patient's lab results. Labs: Lab Results 10/12/20 10/12/20 10/12/20 Range/Units 10:48 10:48 10:48 WBC 8.0 (4.0-10.0) 10^3/ uL RBC 3.90 L (4.1-5.3) 10^6/u L Hgb 9.0 L (11.7-16.6) g/dL Hct 32.6 L (42.0-52.0) % MCV 83.6 (80-94) fL MCH 23.1 L (28.0-34.0) pg MCHC 27.6 L (30.0-36.0) g/dL RDW 18.5 H (12.1-15.1) % Plt Count 336 (130-400) 10^3/c mm MPV 10.6 H (7.4-10.4) fL Neut % (Auto) 75.1 % Lymph % (Auto) 11.5 % Baker % (Auto) 10.1 % Eos % (Auto) 1.9 % Baso % (Auto) 1.0 % Neut # (Auto) 6.04 (1.8-7.7) 10^3/u L Lymph # (Auto) 0.9 (0.8-4.8) 10^3/u L Baker # (Auto) 0.8 (0.2-0.9) 10^3/u L Eos # (Auto) 0.2 (0.0-0.8) 10^3/u L Baso # (Auto) 0.1 (0.0-0.1) 10^3/u L Nucleated RBC % (a uto) 0 % Nucleated RBCs # 0.0 /100WBC PT 18.00 H (12.1-14.9) SECO NDS INR 1.43 H (0.8-1.2) Specimen Type Sample Site ABG pH (7.35-7.45) ABG pCO2 (35-45) mmHg ABG pO2 (80.0-100.0) mmH g ABG HCO3 (22-26) mmol/L ABG Base Excess (-2.0-2.0) mmol/ L Edis Test Hematocrit (42-52) % O2 Delivery Device FiO2 % Customer Greeter ID Sodium 136 (136-145) mmol/L Potassium 4.8 (3.5-5.1) mmol/L Chloride 98 (98-107) mmol/L Carbon Dioxide 18 L (22-29) mmol/L Anion Gap 24.8 H (5-19) BUN 34 H (8-23) mg/dL Creatinine 2.0 H (0.7-1.2) mg/dL GFR Calculation 33.4 L (90-130) mL/min Glucose 243 H (65-115) mg/dL Calculated Osmolal ity 298 H (285-295) mOsm/k g Lactic Acid (0.5-2.2) mmol/L Calcium 9.7 (8.5-10.5) mg/dL Magnesium 2.1 (1.7-2.3) mg/dL Total Bilirubin 0.5 (0.15-1.2) mg/dL AST 13 (0-40) U/L ALT 10 (0-41) U/L Alkaline Phosphata se 100 (40-130) IU/L Creatine Kinase 32 L (39-308) U/L Troponin T Baselin e (0-15) ng/L Troponin T 120 Min enterprise (0-15) ng/L Delta Troponin T (0-10) ABS# NT-Pro-B Natriuret Pep 3943 H (0-125) pg/mL Total Protein 7.0 (6.6-8.7) g/dL Albumin 4.3 (3.5-5.2) g/dL Globulin 2.7 (1.3-4.6) g/dL Lipase 80 H (13-60) U/L TSH 5.23 H (0.27-4.20) uIU/ mL Urine Color (Yellow) Urine Appearance (CLEAR) Urine pH (5-7) Ur Specific Gravit y (1.005-1.030) Urine Protein (Negative) Urine Glucose (UA) (Normal) Urine Ketones (Negative) Urine Blood (Negative) Urine Nitrate (Negative) Urine Bilirubin (Negative) Urine Urobilinogen (Negative) mg/dL Ur Leukocyte Brandi ase (Negative) Urine RBC (0-2) /hpf Urine WBC (0-5) /hpf Ur Squamous Epith Cells (0-5) /hpf Ur Transition Epit h Cell /hpf Amorphous Sediment /hpf Urine Bacteria (NONE) /hpf Serum Ketones Negative (Negative) Influenza Type A A g (Negative) Influenza Type B A g (Negative) SARS-CoV-2 Ag (Rap id) (Negative) 10/12/20 10/12/20 10/12/20 Range/Units 10:48 11:16 11:45 WBC (4.0-10.0) 10^3/ uL RBC (4.1-5.3) 10^6/u L Hgb (11.7-16.6) g/dL Hct (42.0-52.0) % MCV (80-94) fL MCH (28.0-34.0) pg MCHC (30.0-36.0) g/dL RDW (12.1-15.1) % Plt Count (130-400) 10^3/c mm MPV (7.4-10.4) fL Neut % (Auto) % Lymph % (Auto) % Baker % (Auto) % Eos % (Auto) % Baso % (Auto) % Neut # (Auto) (1.8-7.7) 10^3/u L Lymph # (Auto) (0.8-4.8) 10^3/u L Baker # (Auto) (0.2-0.9) 10^3/u L Eos # (Auto) (0.0-0.8) 10^3/u L Baso # (Auto) (0.0-0.1) 10^3/u L Nucleated RBC % (a uto) % Nucleated RBCs # /100WBC PT (12.1-14.9) SECO NDS INR (0.8-1.2) Specimen Type Arterial Sample Site Brachial, left ABG pH 7.40 (7.35-7.45) ABG pCO2 38.0 (35-45) mmHg ABG pO2 76.7 L (80.0-100.0) mmH g ABG HCO3 23.7 (22-26) mmol/L ABG Base Excess -0.9 (-2.0-2.0) mmol/ L Edis Test N/a Hematocrit 27.7 L (42-52) % O2 Delivery Device Room air FiO2 21.0 % Customer Greeter ID glc Sodium (136-145) mmol/L Potassium (3.5-5.1) mmol/L Chloride (98-107) mmol/L Carbon Dioxide (22-29) mmol/L Anion Gap (5-19) BUN (8-23) mg/dL Creatinine (0.7-1.2) mg/dL GFR Calculation (90-130) mL/min Glucose (65-115) mg/dL Calculated Osmolal ity (285-295) mOsm/k g Lactic Acid 2.3 H (0.5-2.2) mmol/L Calcium (8.5-10.5) mg/dL Magnesium (1.7-2.3) mg/dL Total Bilirubin (0.15-1.2) mg/dL AST (0-40) U/L ALT (0-41) U/L Alkaline Phosphata se (40-130) IU/L Creatine Kinase (39-308) U/L Troponin T Baselin e 47 H (0-15) ng/L Troponin T 120 Min enterprise (0-15) ng/L Delta Troponin T (0-10) ABS# NT-Pro-B Natriuret Pep (0-125) pg/mL Total Protein (6.6-8.7) g/dL Albumin (3.5-5.2) g/dL Globulin (1.3-4.6) g/dL Lipase (13-60) U/L TSH (0.27-4.20) uIU/ mL Urine Color (Yellow) Urine Appearance (CLEAR) Urine pH (5-7) Ur Specific Gravit y (1.005-1.030) Urine Protein (Negative) Urine Glucose (UA) (Normal) Urine Ketones (Negative) Urine Blood (Negative) Urine Nitrate (Negative) Urine Bilirubin (Negative) Urine Urobilinogen (Negative) mg/dL Ur Leukocyte Brandi ase (Negative) Urine RBC (0-2) /hpf Urine WBC (0-5) /hpf Ur Squamous Epith Cells (0-5) /hpf Ur Transition Epit h Cell /hpf Amorphous Sediment /hpf Urine Bacteria (NONE) /hpf Serum Ketones (Negative) Influenza Type A A g (Negative) Influenza Type B A g (Negative) SARS-CoV-2 Ag (Rap id) (Negative) 10/12/20 10/12/20 10/12/20 Range/Units 11:45 13:13 13:13 WBC (4.0-10.0) 10^3/ uL RBC (4.1-5.3) 10^6/u L Hgb (11.7-16.6) g/dL Hct (42.0-52.0) % MCV (80-94) fL MCH (28.0-34.0) pg MCHC (30.0-36.0) g/dL RDW (12.1-15.1) % Plt Count (130-400) 10^3/c mm MPV (7.4-10.4) fL Neut % (Auto) % Lymph % (Auto) % Baker % (Auto) % Eos % (Auto) % Baso % (Auto) % Neut # (Auto) (1.8-7.7) 10^3/u L Lymph # (Auto) (0.8-4.8) 10^3/u L Baker # (Auto) (0.2-0.9) 10^3/u L Eos # (Auto) (0.0-0.8) 10^3/u L Baso # (Auto) (0.0-0.1) 10^3/u L Nucleated RBC % (a uto) % Nucleated RBCs # /100WBC PT (12.1-14.9) SECO NDS INR (0.8-1.2) Specimen Type Sample Site ABG pH (7.35-7.45) ABG pCO2 (35-45) mmHg ABG pO2 (80.0-100.0) mmH g ABG HCO3 (22-26) mmol/L ABG Base Excess (-2.0-2.0) mmol/ L Edis Test Hematocrit (42-52) % O2 Delivery Device FiO2 % Customer Greeter ID Sodium (136-145) mmol/L Potassium (3.5-5.1) mmol/L Chloride (98-107) mmol/L Carbon Dioxide (22-29) mmol/L Anion Gap (5-19) BUN (8-23) mg/dL Creatinine (0.7-1.2) mg/dL GFR Calculation (90-130) mL/min Glucose (65-115) mg/dL Calculated Osmolal ity (285-295) mOsm/k g Lactic Acid (0.5-2.2) mmol/L Calcium (8.5-10.5) mg/dL Magnesium (1.7-2.3) mg/dL Total Bilirubin (0.15-1.2) mg/dL AST (0-40) U/L ALT (0-41) U/L Alkaline Phosphata se (40-130) IU/L Creatine Kinase (39-308) U/L Troponin T Baselin e (0-15) ng/L Troponin T 120 Min enterprise 47.31 H (0-15) ng/L Delta Troponin T 0.31 (0-10) ABS# NT-Pro-B Natriuret Pep (0-125) pg/mL Total Protein (6.6-8.7) g/dL Albumin (3.5-5.2) g/dL Globulin (1.3-4.6) g/dL Lipase (13-60) U/L TSH (0.27-4.20) uIU/ mL Urine Color (Yellow) Urine Appearance (CLEAR) Urine pH (5-7) Ur Specific Gravit y (1.005-1.030) Urine Protein (Negative) Urine Glucose (UA) (Normal) Urine Ketones (Negative) Urine Blood (Negative) Urine Nitrate (Negative) Urine Bilirubin (Negative) Urine Urobilinogen (Negative) mg/dL Ur Leukocyte Brandi ase (Negative) Urine RBC (0-2) /hpf Urine WBC (0-5) /hpf Ur Squamous Epith Cells (0-5) /hpf Ur Transition Epit h Cell /hpf Amorphous Sediment /hpf Urine Bacteria (NONE) /hpf Serum Ketones (Negative) Influenza Type A A g Negative (Negative) Influenza Type B A g Negative (Negative) SARS-CoV-2 Ag (Rap id) Negative (Negative) 10/12/20 Range/Units 13:54 WBC (4.0-10.0) 10^3/ uL RBC (4.1-5.3) 10^6/u L Hgb (11.7-16.6) g/dL Hct (42.0-52.0) % MCV (80-94) fL MCH (28.0-34.0) pg MCHC (30.0-36.0) g/dL RDW (12.1-15.1) % Plt Count (130-400) 10^3/c mm MPV (7.4-10.4) fL Neut % (Auto) % Lymph % (Auto) % Baker % (Auto) % Eos % (Auto) % Baso % (Auto) % Neut # (Auto) (1.8-7.7) 10^3/u L Lymph # (Auto) (0.8-4.8) 10^3/u L Baker # (Auto) (0.2-0.9) 10^3/u L Eos # (Auto) (0.0-0.8) 10^3/u L Baso # (Auto) (0.0-0.1) 10^3/u L Nucleated RBC % (a uto) % Nucleated RBCs # /100WBC PT (12.1-14.9) SECO NDS INR (0.8-1.2) Specimen Type Sample Site ABG pH (7.35-7.45) ABG pCO2 (35-45) mmHg ABG pO2 (80.0-100.0) mmH g ABG HCO3 (22-26) mmol/L ABG Base Excess (-2.0-2.0) mmol/ L Edis Test Hematocrit (42-52) % O2 Delivery Device FiO2 % Customer Greeter ID Sodium (136-145) mmol/L Potassium (3.5-5.1) mmol/L Chloride (98-107) mmol/L Carbon Dioxide (22-29) mmol/L Anion Gap (5-19) BUN (8-23) mg/dL Creatinine (0.7-1.2) mg/dL GFR Calculation (90-130) mL/min Glucose (65-115) mg/dL Calculated Osmolal ity (285-295) mOsm/k g Lactic Acid (0.5-2.2) mmol/L Calcium (8.5-10.5) mg/dL Magnesium (1.7-2.3) mg/dL Total Bilirubin (0.15-1.2) mg/dL AST (0-40) U/L ALT (0-41) U/L Alkaline Phosphata se (40-130) IU/L Creatine Kinase (39-308) U/L Troponin T Baselin e (0-15) ng/L Troponin T 120 Min enterprise (0-15) ng/L Delta Troponin T (0-10) ABS# NT-Pro-B Natriuret Pep (0-125) pg/mL Total Protein (6.6-8.7) g/dL Albumin (3.5-5.2) g/dL Globulin (1.3-4.6) g/dL Lipase (13-60) U/L TSH (0.27-4.20) uIU/ mL Urine Color Yellow (Yellow) Urine Appearance Hazy A (CLEAR) Urine pH 5 (5-7) Ur Specific Gravit y 1.020 (1.005-1.030) Urine Protein Neg (Negative) Urine Glucose (UA) 4+ H (Normal) Urine Ketones Negative (Negative) Urine Blood Neg (Negative) Urine Nitrate Negative (Negative) Urine Bilirubin Neg (Negative) Urine Urobilinogen Norm (Negative) mg/dL Ur Leukocyte Brandi ase Negative (Negative) Urine RBC 0-4 H (0-2) /hpf Urine WBC None (0-5) /hpf Ur Squamous Epith Cells None (0-5) /hpf Ur Transition Epit h Cell None /hpf Amorphous Sediment 3+ /hpf Urine Bacteria Trace (NONE) /hpf Serum Ketones (Negative) Influenza Type A A g (Negative) Influenza Type B A g (Negative) SARS-CoV-2 Ag (Rap id) (Negative) Imaging Data^: CXR: Attestation: I personally reviewed and interpreted this imaging study as follows: My impression: Significant cardiomegaly with moderate pulmonary vascular congestion Pelvis: Attestation: I personally reviewed and interpreted this imaging study as follows: My impression: No acute pelvic fractures. Lucency is present in the right femoral head of uncertain significance. CT Head: Radiologist's impression: [address] [address] [address] Scan Report Signed Patient: Abhay Varghese Unit #: [id number] : 1950 Age/Sex: 70 / M ADM Date: 10/12/20 Loc: ER Room/Bed: Attending Dr: Ordering Provider/Ordering MD: Doretha Montemayor DO Date of Service: 10/12/20 Procedure(s): CT head wo con* [id number] Accession Number(s): [id number] Report Number: [id number] WS: [id number] CT HEAD NONCONTRAST HISTORY: Altered mental status TECHNIQUE: Contiguous axial imaging performed through the brain in 2.5 mm imaging. Bone and soft tissue windows. Sagittal and coronal reformats reviewed. All CT scans at [facility] use at least one of these dose optimization techniques: automated exposure control; mA and/or kV adjustment per patient size (includes targeted exams where dose is matched to clinical indication); or iterative reconstruction. DLP: 1023.99 mGy.cm COMPARISON: None available. No acute intracranial hemorrhage, midline shift or mass effect. There is a large area of encephalomalacia involving the LEFT occipital lobe. No mass effect or midline shift. Additional areas of decreased attenuation from chronic microvascular ischemic disease. No acute infarcts are identified. There is probably a small lacunar infarct at the RIGHT caudate head also. Mild bilateral cerebral atrophy. Additional infarct involving the LEFT frontoparietal junction. Ventricles: Exvacuodilatation of the LEFT lateral ventricle from the prior infarcts and volume loss. Paranasal sinuses: As visualized are clear. Mastoid air cells: Well pneumatized. Calvarium and scalp: Skull is intact with no soft tissue edema or swelling. Moderate plaque within the intracranial carotid arteries. CT/CT head wo con* [id number] IMPRESSION: 1. No acute intracranial hemorrhage or infarct. 2. 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 Additional smaller infarct involving the LEFT frontoparietal junction. 3. Mild atrophy and chronic microvascular ischemic change. Dictated By: Sandra Sanchez DO Signed By: Sandra Sanchez DO Signed Date/Time: 10/12/20 1224 DD/ 1219 CT Cervical Spine: Radiologist's impression: [address] [address] [address] Scan Report Signed Patient: Abhay Varghese Unit #: [id number] : 1950 Age/Sex: 70 / M ADM Date: 10/12/20 Loc: ER Room/Bed: Attending Dr: Ordering Provider/Ordering MD: Doretha Montemayor DO Date of Service: 10/12/20 Procedure(s): CT cervical spin wo con* [id number] Accession Number(s): [id number] Report Number: [id number] WS: [id number] CT CERVICAL SPINE HISTORY: PAIN TECHNIQUE: Contiguous 2.5 mm axial imaging performed through the entire cervical spine. Sagittal and coronal reformats also performed. All CT scans at [facility] use at least one of these dose optimization techniques: automated exposure control; mA and/or kV adjustment per patient size (includes targeted exams where dose is matched to clinical indication); or iterative reconstruction. DLP: 881.61 mGy.cm COMPARISON: None available. Mild RIGHT convex curvature of the cervical spine. Posterior alignment is normal. Craniocervical junction is normal. Mild disc space narrowing and small osteophytes. C2-C3: Normal. C3-C4: Osteophytic ridging resulting in moderate bilateral foraminal stenosis. C4-C5: Central disc protrusion is partially calcified with bilateral facet joint arthritis. Encroachment upon the thecal sac by the partially calcified disc protrusion. Moderate central and bilateral foraminal stenosis. C5-C6: Moderate annular disc bulging and osteophytic ridging. Mild central and RIGHT foraminal stenosis with moderate to severe LEFT foraminal stenosis. C6-C7: Mild osteophytic ridging without stenosis. C7-T1: Mild osteophytic ridging without significant stenosis. Lung apices are clear. Heavy calcification within the great vessels. LEFT carotid stent. Heavy calcification within the vertebral arteries. CT/CT cervical spin wo con* [id number] IMPRESSION: 1. No cervical spine fracture. 2. Moderate size central disc protrusion at C4-5 and osteophytic ridging resulting in moderate central and bilateral foraminal stenosis. 3. Moderate to severe LEFT foraminal stenosis at C5-6. 4. Moderate bilateral foraminal stenosis at C3-4. Dictated By: Sandra Sanchez DO Signed By: Sandra Sanchez DO Signed Date/Time: 10/12/20 1228 DD/ 1224 EKG Data^: EKG 1: Attestation: I personally reviewed and interpreted this EKG as follows: EKG interpretation date: 10/12/20 EKG interpretation time: 10:45 Interpretation: AV sequential pacemaker with ventricular rate of 78, frequent PVCs, similar to previous. Discharge Plan Discharge Patient Disposition: Admitted As Inpatient Clinical Impression: Syncope Condition: Stable Prescriptions: No Action colchicine 0.6 mg tablet 0.6 mg PO DAILY PRN (Reason: GOUT) RF: 0 carvedilol 12.5 mg tablet 12.5 mg PO DAILY RF: 0 Eliquis 5 mg tablet 5 mg PO BID@ RF: 0 duloxetine 30 mg capsule,delayed release(DR/EC) 60 mg PO DAILY@08 RF: 0 tramadol-acetaminophen 37.5-325 mg tablet 1 tab PO BID PRN (Reason: Pain) RF: 0 Entresto 24-26 mg tablet 1 tab PO BID@ RF: 0 pantoprazole 40 mg tablet,delayed release (DR/EC) 40 mg PO DAILY@08 RF: 0 escitalopram oxalate 10 mg Tablet 10 mg PO DAILY RF: 0 Lasix 40 mg Tablet 40 mg PO DAILY PRN (Reason: Edema) RF: 0 Aspir-81 81 mg Tablet,Delayed Release (Dr/Ec) 81 mg PO DAILY RF: 0 metformin 1,000 mg Tablet 1,000 mg PO BID@08,17 RF: 0 clopidogrel 75 mg tablet 75 mg PO DAILY@08 RF: 0 torsemide 100 mg tablet 100 mg PO DAILY@08 RF: 0 rosuvastatin 20 mg tablet 20 mg PO DAILY@20 RF: 0 Jardiance 10 mg tablet 10 mg PO DAILY@08 RF: 0 Referrals: Teo Fields MD [Primary Care Provider] - Coding Level of Care Code ED 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
--- NOTE | 2020-10-12 11:12 | XRR_ITS ---
PROCEDURE INFORMATION: Exam: XR Chest, 1 View Exam date and time: 10/12/2020 11:39 AM Age: 70 years old Clinical indication: Injury or trauma; Fall; Blunt trauma (contusions or hematomas) TECHNIQUE: Imaging protocol: XR of the chest Views: 1 view. COMPARISON: CR XR chest 1V portable [id number] 03/31/2020 8:28 PM FINDINGS: Lungs: Unremarkable. No consolidation. Pleural space: Unremarkable. No pleural effusion. No pneumothorax. Heart/Mediastinum: Unremarkable. There is cardiomegaly for projection. Bones/joints: Status post sternotomy. Soft tissues: Cardiac pacemaker left anterior chest. XR/XR chest 1V portable [id number] IMPRESSION: 1. Cardiac pacemaker left anterior chest. 2. Cardiomegaly for projection 3. Status post sternotomy 4. No acute findings.
--- NOTE | 2020-10-12 11:13 | XRR_ITS ---
PROCEDURE INFORMATION: Exam: XR Pelvis Exam date and time: 10/12/2020 11:41 AM Age: 70 years old Clinical indication: Injury or trauma; Fall; Blunt trauma (contusions or hematomas); Right; Hip TECHNIQUE: Imaging protocol: XR pelvis. Views: 1 or 2 view. COMPARISON: CT abdomen pelvis con [id number] 03/31/2020 10:39 PM FINDINGS: Bones/joints: There is metallic screws present in the right acetabulum. Negative for acute bony abnormalities.. No acute fracture. Soft tissues: Unremarkable. XR/XR pelvis 1-2V* [id number] IMPRESSION: 1. No acute findings. 2. Metallic screws right acetabulum
[2020-10-12 11:28] LABS: Arterial Blood Gas Hematocrit 27.7 % (42-52); Base Excess ABG -0.9 mmol/L (-2.0-2.0); Blood Gas Operator Identificat glc; Blood Gas Sample Site Brachial, left; Blood Gas Sample Type Arterial; HCO3 ABG 23.7 mmol/L (22-26); Oxygen Device ROOM AIR; PO2 ABG 76.7 mmHg (80.0-100.0)
[2020-10-12 11:31] LABS: Basophils # 0.1 10^3/uL (0.0-0.1); Eosinophils # 0.2 10^3/uL (0.0-0.8); Eosinophils % 1.9 %; Hematocrit 32.6 % (42.0-52.0); Lymphocytes # 0.9 10^3/uL (0.8-4.8); Lymphocytes % 11.5 %; Mean Corpuscular HGB Conc 27.6 g/dL (30.0-36.0); Mean Corpuscular Hemoglobin 23.1 pg (28.0-34.0); Mean Corpuscular Volume 83.6 fL (80-94); Mean Platelet Volume 10.6 fL (7.4-10.4); Monocytes # 0.8 10^3/uL (0.2-0.9); Monocytes % 10.1 %; Neutrophils # 6.04 10^3/uL (1.8-7.7); Neutrophils % 75.1 %; Nucleated Red Blood Cells % 0 %; Platelet Count 336 10^3/cmm (130-400); Red Cell Distribution Width 18.5 % (12.1-15.1)
[2020-10-12 11:38] LABS: INR 1.43 (0.8-1.2); Ketone (Acetest) Serum Negative (Negative)
[2020-10-12 11:39] LABS: Troponin(5th) Baseline 47 ng/L (0-15)
[2020-10-12 11:50] LABS: Thyroid Stimulating Hormone 5.23 uIU/mL (0.27-4.20)
[2020-10-12 11:51] LABS: Alanine Aminotransferase 10 U/L (0-41); Albumin Level 4.3 g/dL (3.5-5.2); Alkaline Phosphatase 100 IU/L (40-130); Anion Gap 24.8 (5-19); Aspartate Amino Transferase 13 U/L (0-40); Blood Urea Nitrogen 34 mg/dL (8-23); Calcium 9.7 mg/dL (8.5-10.5); Carbon Dioxide 18 mmol/L (22-29); Chloride 98 mmol/L (98-107); Creatine Phosphokinase 32 U/L (39-308); Globulin 2.7 g/dL (1.3-4.6); Glomerular Filtration Rate 33.4 mL/min (90-130); Glucose 243 mg/dL (65-115); Lipase 80 U/L (13-60); Magnesium 2.1 mg/dL (1.7-2.3); NT Pro B Type Natriuretic Pept 3943 pg/mL (0-125); Osmolality Calculated 298 mOsm/kg (285-295); Potassium 4.8 mmol/L (3.5-5.1); Sodium 136 mmol/L (136-145); Total Bilirubin 0.5 mg/dL (0.15-1.2)
[2020-10-12] MEDS: sodium chloride 0.9% 1,000 ML 100 ML IV (11:54)
[2020-10-12 12:18] LABS: Lactic Sepsis W/Reflex 2.3 mmol/L (0.5-2.2)
[2020-10-12 12:46] LABS: Influenza A by IFA Negative (Negative); Influenza B by IFA Negative (Negative)
--- NOTE | 2020-10-12 13:00 | ECG_ITS ---
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 Measurements Intervals [place] Rate: 76 P: DE: QRS: 173 QRSD: 162 T: 25 QT: 447 QTc: 504 Interpretive Statements ELECTRONIC VENTRICULAR PACEMAKER with PVCs ABNORMAL RHYTHM ECG Compared to ECG 04/01/2020 03:07:21 No significant changes Electronically Signed On 10-13-2020 17:49:42 CIRCULAR KNITTER HELPER by Nessa Love M.D. [id number]
[2020-10-12 13:43] LABS: Reflex Lactate Order REFLEX LACTIC ORDERD
[2020-10-12 13:45] LABS: Troponin 5 2HR 47.31 ng/L (0-15); Troponin 5 2HR Delta 0.31 ABS# (0-10)
[2020-10-12 13:59] LABS: SARS Covid-2 Antigen Negative (Negative)
[2020-10-12 14:12] LABS: Bilirubin Urine Neg (Negative); Blood Urine Neg (Negative); Glucose Urine UA 4+ (Normal); Ketones Urine Negative (Negative); Leukocyte Esterase Urine Negative (Negative); Nitrate Urine Negative (Negative); Protein Urine Neg (Negative); Urine Appearance Hazy (CLEAR); Urine Color Yellow (Yellow); Urobilinogen Urine Norm (Negative); pH Urine 5 (5-7)
[2020-10-12 14:22] LABS: Add Urine Culture? No; Amorphous Sediment Urine 3+ /hpf; Bacteria Urine TRACE /hpf; RBC Urine 0-4 /hpf (0-2)
--- NOTE | 2020-10-12 14:53 | P.HP_ITS ---
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 Patient stated he can not clearly recall all events however does remember standing up from sitting position and feeling dizziness prior to event. Woke up on the ground. Stated he was feeling to weak to stand up again. Denied chest pain or dyspnea. No recent changes to medication. Denied fever, chills, nausea, vomiting, abdominal pain or dark bloody bowel movements. Stated he has been feeling well in the past few weeks. Laboratory workup on arrival to emergency room showed a WBC of 8.0, hemoglobin 9.0, hematocrit 32.6 and a platelet count of 336. INR 1.43. Arterial blood gases showed a pH of 7.40, pCO2 of 38, and bicarb 23.7. Sodium 136, potassium 4.8, chloride 98, bicarb 18, BUN 34 and creatinine of 2.5. Most recent creatinine in March was 1.5. Glucose of 243. lactic acid of 2.3. Repeat was 1.0. Magnesium 2.1. LFTs were within normal limits. Creatinine kinase was 32. troponin T baseline was 47 with a repeat of 47.31 at 120 minutes and 44.62 at 6:00 a.m.. ProBNP was 3943. TSH of 5.23. Lipase of 80. urinalysis was unremarkable. Influenza A/B and COVID 19 antigen was negative. Imaging studies included a CT head without contrast which showed remote large left FOOD BEVERAGE ATTENDANT infarct and small left frontoparietal infarct. No acute abnormalities were seen. CT of cervical spine did not show any evidence of severe central canal stenosis. Chest x-ray showed cardiomegaly, prior sternotomy without any acute findings. Pelvis x-ray was negative. In review of records patient did have a CTA of neck in march which had shown severe left internal carotid artery stenosis and echo which showed EF of 30-35% and decrease RV systolic disfunction. In ER patient was given IV bolus of NS. AICD interrogation was sent however pending. Patient was awake, alert with out any distress at the time of my eval. Review of Systems General: Reports: 10 or more systems reviewed and unremarkable except in HPI and below Medications/Allergies Home Medications Medication Instructions Recorded Confirmed Last Taken Type apixaban 5 mg tablet 5 mg PO BID@03/31/20 10/12/20 03/31/20 History carvedilol 12.5 mg tablet 12.5 mg PO DAILY 03/31/20 10/12/20 03/31/20 History duloxetine 30 mg capsule,delayed 60 mg PO DAILY@ cap 03/31/20 10/12/20 03/31/20 History release escitalopram oxalate 10 mg PO DAILY 03/31/20 10/12/20 03/31/20 History pantoprazole 40 mg tablet,delayed 40 mg PO DAILY@03/31/20 10/12/20 03/31/20 History release sacubitril 24 mg-valsartan 26 mg 1 tab PO BID@03/31/20 10/12/20 03/31/20 History tablet tramadol 37.5 mg-acetaminophen 325 1 tab PO BID PRN 03/31/20 10/12/20 03/31/20 History mg tablet colchicine 0.6 mg tablet 0.6 mg PO DAILY PRN 04/21/20 10/12/20 Unknown History Jardiance 10 mg PO DAILY@10/12/20 10/12/20 Unknown History aspirin [Aspir-81] 81 mg PO DAILY 10/12/20 10/12/20 Unknown History clopidogrel 75 mg PO DAILY@10/12/20 10/12/20 Unknown History furosemide [Lasix] 40 mg PO DAILY PRN 10/12/20 10/12/20 Unknown History metformin 1,000 mg PO BID@,10/12/20 10/12/20 Unknown History rosuvastatin 20 mg PO DAILY@10/12/20 10/12/20 Unknown History torsemide 100 mg PO DAILY@10/12/20 10/12/20 Unknown History Allergies Allergy/AdvReac Type Severity Reaction Status Date / Time No Known Allergies Allergy Verified 10/12/20 13:33 PFSH Acute PFSH: Medical History (Updated 10/12/20 @ 20:01 by aYra Rocha MD) Atherosclerotic heart disease of [place] coronary artery without angina pectoris Atrial fibrillation AV malformation of gastrointestinal tract Bilateral carotid artery stenosis CAD (coronary artery disease) Carotid artery stenosis with cerebral infarction CHF (congestive heart failure) EF ~30% CVA (cerebral vascular accident) Diabetes Dyslipidemia Endocarditis Gout Hypertension ICD (implantable cardioverter-defibrillator) in place possibly [facility] device Ischemic cardiomyopathy TIA (transient ischemic attack) Type 2 diabetes mellitus A1c 6.30 March 2020 Surgical History 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 H/O carotid endarterectomy Hx of aortic valve replacement bioprosthetic, 2013 Hx of CABG 1998, 5V Family History Other CAD (coronary artery disease) Cancer Chronic kidney disease (CKD) Diabetes Family history of premature coronary artery disease Hyperlipidemia Hypertension Stroke Social History Smoking and tobacco status: former smoker Alcohol intake: current Alcohol intake frequency: holidays/special occasions only Desire information about substance/drug rehabilitation?: No Housing: House Vitals/I&O/Wt Last Vital Signs Pulse 75 10/12/20 13:15 Resp 20 H 10/12/20 13:15 BP 144/78 10/12/20 13:15 Pulse Ox 100 10/12/20 13:15 Weight last 48 hrs Weight 113.398 kg Physical Exam Narrative: EXAM NARRATIVE: General: Alert, awake, NAD HEENT : Grossly unremakable CHEST : Non-labored respiration CVS : Normal Sinus Rythym ABD : Soft, NT, ND EXT : Mild B/L Le edema Neuro : CN 2-12 intact, MS -5/5 Urinary Catheter Management^: Vazquez: Cath Placed During This Visit: yes Urinary Catheter Date of Insertion: 10/12/20 Urinary Catheter Time of Insertion: 13:51 Data : 10/12/20 10:48 10/12/20 10:48 Micro: Microbiology 10/12/20 11:45 Blood Culture - Preliminary Blood SPECIMEN COLLECTED 10/12/20 11:45 Blood Culture - Preliminary Blood SPECIMEN COLLECTED A&P Assessment and plan (1) Syncope: Status: Acute Qualifiers: Syncope type: unspecified Qualified Code(s): R55 - Syncope and collapse (2) Atherosclerotic heart disease of [place] coronary artery without angina pectoris: Status: Acute Qualifiers: [place] vs. 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 Diabetes mellitus complication status: with hyperglycemia Qualified Code(s): E11.65 - Type 2 diabetes mellitus with hyperglycemia; Z79.4 - jail (current) use of insulin (9) Hypertension: Status: Acute Qualifiers: Hypertension type: unspecified Qualified Code(s): I10 - Essential (rafaela nicolle) hypertension (10) ICD (implantable cardioverter-defibrillator) in place: Status: Acute (11) Atrial fibrillation: Status: Acute Qualifiers: Atrial fibrillation type: permanent Qualified Code(s): I48.21 - Permanent atrial fibrillation (12) CHF (congestive heart failure): Status: Acute Qualifiers: Heart failure type: systolic Heart failure chronicity: chronic Qualified Code(s): I50.22 - Chronic systolic (congestive) heart failure (13) CAD (coronary artery disease): Status: Acute Qualifiers: Coronary Disease-Associated Artery/Lesion type: [place] artery [place] vs. transplanted heart: [place] heart Associated angina: without angina Qualified Code(s): I25.10 - Atherosclerotic heart disease of [place] coronary artery without angina pectoris (14) CVA (cerebral vascular accident): Status: Acute Qualifiers: CVA mechanism: embolism Precerebral and cerebral artery: middle cerebral artery Laterality of affected vessel: right Qualified Code(s): I63.411 - Cerebral infarction due to embolism of right middle cerebral artery Syncopal Episode - Etiology unclear - CT head/cervical spine- no acute findings - Possibly orthostasis - Check orthostatic vitals now - Repeat Limited ECHO - assess LV function - AICD interogation - Cardiac telemetry - monitor for arrhythmia - No evidence of acute infectious process - PT/OT consult - Fall precautions Acute on chronic stage 3 kidney disease - Creatinine baseline around 1.5 -1.7 - Today slightly elevated at 2.0 - UA - WNL - S/p NS bolus - Hold Diuretics - Renally dose meds - Avoid hypotension - Repeat BMP in AM - Monitor and record urine output Elevated Troponin hx of CAD s/p CABG - 47-> 47- > 44 - Trend not consistent with ACS - Rule out - No chest pain - Continue aspirin 81 mg PO daily - Plavix 75 mg PO daily - Lipitor 80 mg PO daily - Coreg 12.5 mg PO BID - Entresto on hold due to worsening renal failure - F/u on repeat ECHO - Consider card input - EKG PRN Paroxysmal Atrial Fibrillation - Rate control with coreg 12.5 mg PO BID - Continue eliquis 5 mg PO BID - Monitor on tele Chronic systolic heart failure (EF 30-35%) hx of AICD - W/O exacerbation - ECHO 03/2020- noted in HPI - Repeat limited echo ordered - Daily weight - Holding diuretics - Cautious fluid resuscitation - AICD interrogation ( denied discharge ) Hypertension/Dyslipidemia - Meds as above Diabetes Mellitus with neuropathy - Sliding scale insulin - A1c in AM - Diabetic diet Hx of Left FOOD BEVERAGE ATTENDANT / L. F-P stroke - No residual deficits - Asa/Plavix/Eliquis/Statin as above - PT/OT Carotid artery stenosis s/p CEA - Unclear side and timing - verify - Severe LICA stenosis noted in 03/2020 - Meds as above - Unlikely to cause syncopal event Hx of GI bleed due to AVMs - Was restarted on anticoagulation - Monitor H/H - Transfuse if < 8.0 & hold antiplatelets/OAC Hx of Aortic valve endocarditis s/p Biprosthetic AVR - Stable - Following cardiology on outpatient DVT ppx - Anticoagulated Attestations Medical Necessity Statement*: Will place in observation. Anticipate less than 2 midnight stay in hospital for eval. Time Spent in Patient Care: Greater than 35 minutes (>than 50% of time spent in counselling and/or direct pt care on unit) . Coding Level of Care Code Acute Manager Of Enterprise for g Fwd Diagnoses Syncope R55 Syncope type: unspecified Atherosclerotic heart disease of [place] coronary artery without angina pectoris I25.10 [place] vs. 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 transplanted heart: [place] heart Associated angina: without angina CVA (cerebral vascular accident) I63.411 CVA mechanism: embolism Precerebral and cerebral artery: middle cerebral artery Laterality of affected vessel: right
--- NOTE | 2020-10-12 17:00 | ECG_ITS ---
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 Measurements Intervals [place] Rate: 73 P: ID: QRS: 151 QRSD: 146 T: -16 QT: 436 QTc: 481 Interpretive Statements ELECTRONIC VENTRICULAR PACEMAKER WITH ISOLATED PVC'S ABNORMAL RHYTHM ECG Compared to ECG 10/12/2020 13:08:22 No significant changes Electronically Signed On 10-12-2020 20:48:21 GLASS INSPECTOR by Nessa Love M.D. [id number]
[2020-10-12 17:19] LABS: Glucose Point of Care 148 mg/dL (70-110)
[2020-10-12 17:39] LABS: Troponin 5 6HR 44.62 ng/L (0-15)
[2020-10-12 17:44] LABS: Troponin 5 6HR Delta -2.38 ng/L (0-12)
[2020-10-12 20:11] LABS: Glucose Point of Care 317 mg/dL (70-110)
[2020-10-12] MEDS: atorvastatin 40 mg Tablet 80 MG PO (20:36)
[2020-10-12] MEDS: apixaban 5 mg Tablet PO (20:38)
[2020-10-12] MEDS: trazodone 50 mg Tablet PO (22:47)
[2020-10-13] VITALS (9 sets, daily range): BP systolic 95–116; BP diastolic 46–69; PULSE 63–72; RESP 17–18; TEMP 36.5–36.9; O2SAT 94–97
[2020-10-13 05:42] LABS: Basophils # 0.1 10^3/uL (0.0-0.1); Basophils % 0.9 %; Eosinophils # 0.1 10^3/uL (0.0-0.8); Hematocrit 27.5 % (42.0-52.0); Hemoglobin 7.5 g/dL (11.7-16.6); Lymphocytes % 13.4 %; Mean Corpuscular HGB Conc 27.3 g/dL (30.0-36.0); Mean Corpuscular Hemoglobin 22.5 pg (28.0-34.0); Mean Corpuscular Volume 82.3 fL (80-94); Mean Platelet Volume 10.5 fL (7.4-10.4); Monocytes # 0.9 10^3/uL (0.2-0.9); Neutrophils # 5.56 10^3/uL (1.8-7.7); Neutrophils % 72.6 %; Nucleated Red Blood Cells % 0 %; Platelet Count 264 10^3/cmm (130-400); Red Blood Count 3.34 10^6/uL (4.1-5.3); Red Cell Distribution Width 18.5 % (12.1-15.1); White Blood Count 7.7 10^3/uL (4.0-10.0)
[2020-10-13 06:12] LABS: Alanine Aminotransferase 8 U/L (0-41); Albumin Level 3.5 g/dL (3.5-5.2); Alkaline Phosphatase 84 IU/L (40-130); Aspartate Amino Transferase 12 U/L (0-40); Blood Urea Nitrogen 27 mg/dL (8-23); Calcium 9.3 mg/dL (8.5-10.5); Carbon Dioxide 23 mmol/L (22-29); Chloride 103 mmol/L (98-107); Globulin 2.8 g/dL (1.3-4.6); Glomerular Filtration Rate 46.5 mL/min (90-130); Glucose 115 mg/dL (65-115); Magnesium 2.4 mg/dL (1.7-2.3); Osmolality Calculated 292 mOsm/kg (285-295); Sodium 138 mmol/L (136-145); Thyroid Stimulating Hormone 1.01 uIU/mL (0.27-4.20); Total Bilirubin 0.7 mg/dL (0.15-1.2); Total Protein 6.3 g/dL (6.6-8.7)
[2020-10-13 06:16] LABS: Procalcitonin 0.11 ng/mL (0-0.5)
[2020-10-13 06:45] LABS: Glucose Point of Care 119 mg/dL (70-110)
--- NOTE | 2020-10-13 06:47 | NUR.SHIFT ---
Patient slept through the night after revieving trazodone per dec. Patient's H/H did drop between both draws, has been notified. Patient is showing no symptoms of bleeding.
--- NOTE | 2020-10-13 07:00 | USCV_ITS ---
Abhay Varghese Age: 70 Gender: M : 1950 Exam Date: 10/13/2020 07:22 Ordering Phys: Yara Rocha MD Technologist: Vivian Sears Exam Location: [facility] [place] Indication: assess lv function BP: 108 / 69 HR: 69 Rhythm: Sinus Technical Quality: Adequate MEASUREMENTS (Male / Female) Normal Values 2D ECHO LV Diastolic Diameter PLAX 5.0 cm 4.2 - 5.9 / 3.9 - 5.3 cm LV Systolic Diameter PLAX 4.7 cm LV Chamber Size 3.5 cm IVS Diastolic Thickness 1.3 cm 0.6 - 1.0 / 0.6 - 0.9 cm IVS Systolic Thickness 1.6 cm LVPW Diastolic Thickness 2.4 cm 0.6 - 1.0 / 0.6 - 0.9 cm LVPW Systolic Thickness 2.2 cm RV Chamber Size 4.3 cm LVOT Diameter 2.1 cm LV Ejection Fraction 2D Teich 13.0 % LV Ejection Fraction MOD 2C 41.9 % LV Ejection Fraction 2C AL 46.0 % LA Diameter 4.9 cm LA Width 3.8 cm LA Height 5.6 cm RA Width 4.4 cm RA Height 5.6 cm Aorta at Sinotubular Diameter 3.0 cm M-MODE LV Diastolic Diameter MM 6.3 cm 4.2 - 5.9 / 3.9 - 5.3 cm LV Systolic Diameter MM 5.1 cm LV Ejection Fraction MM Teich 37.8 % IVS Diastolic Thickness MM 0.8 cm 0.6 - 1.0 / 0.6 - 0.9 cm IVS Systolic Thickness MM 1.2 cm LVPW Diastolic Thickness MM 0.9 cm 0.6 - 1.0 / 0.6 - 0.9 cm LVPW Systolic Thickness MM 1.1 cm Aortic Annulus Diameter 3.2 cm LA Ao Ratio MM 1.8 MV E Point Septal Separation 1.8 cm FINDINGS Left Ventricle Diffuse hypokinesia left ventricle with an ejection fraction around 30%. Right Ventricle Mildly dilated Diffuse hypokinesis with slightly diminished ejection fraction. Pacemaker/ICD wire was noted Right Atrium Mildly increased right atrial size. Pace maker/ICD wire was noted Left Atrium Mildly increased left atrial size. Mitral Valve No gross abnormalities noted leaflets could not be visualized well Aortic Valve The leaflets could not visualize well. Appears to be slightly thickened. Tricuspid Valve No gross abnormalities noted. Leaflets are not well visualized Pulmonic Valve Leaflets are not well-visualized Pericardium No pericardial effusion. Aorta Normal aortic annulus size. CONCLUSIONS Diffuse hypokinesia left ventricle with an ejection fraction around 30-35 %. Mildly dilated right ventricle with a slightly diminished ejection fraction. Mild biatrial enlargement Aortic valve leaflets could not be visualized well. Appears to be somewhat thickened No pericardial effusion. There is no pericardial effusion. Pace maker/ICD wire was noted in the right atrium and right ventricle Compared to the previous study from 07/28/2020, there may not be a significant change in the 2D findings Dr Sascha Londono MD [facility] (Electronically Signed) Final Date: 13 October 2020 20:25 S
--- NOTE | 2020-10-13 08:55 | PC.CHAP ---
Pastoral Care Encounter/Spiritual Assessment Type of Contact [] Declined configurator visit [] Patient/Family/Request visit [] Outpatient visit [] Follow-up visit [] Physician referral [] Code/Alert [x] Routine visit [] Staff referral [] Actively dying [] Patient sleeping [] Family support [] [] Out of room [] Palliative care [] [] Receiving care in room [] Pre-surgical visit [] Trauma [] Long length of stay [] ICU visit [] Other: Relational/Emotional Strength [] Patient feels connected with others/family/visitors/staff [] Distress [] Loneliness/isolation [] Abandonment Spirituality of Patient [] Person of Maggy [] Attends Mu-Ism of their Maggy [] Believes in Prayer [] Reads Bible or Samaritan materials [] There are Spiritual issues to be addressed Actuarial Internship Interventions [x] Prayer [] Active listening [] Non-anxious presence [] Spiritual/emotional support [] Crisis/trauma care [] Spiritual counseling [] Bereavement support [] Provided bereavement packet [] Provided Bible/devotional materials [] Provided toy/stuffed animal, coloring book to patient or family member [] Provided Communion [] Anointing/[place] [] Salvation [x] Completed spiritual assessment [] Other: Impact on Illness or Injury [] Angry [] Fearful [] Anxious [] Often cries [] Exhaustion [] Unable to work [] Unable to attend catholic [] Unable to walk/stand [] Unable to read [] Unable to drive [] Unable to eat/drink [] Unable to sleep [] Unable to be with family [] Patient intubated [] Other: Summary Time spent with patient 5 min
[2020-10-13] MEDS: pantoprazole DR 40 mg Tablet PO (09:12)
[2020-10-13] MEDS: escitalopram 10 mg Tablet PO (09:12)
[2020-10-13] MEDS: clopidogrel 75 mg Tablet PO (09:12)
[2020-10-13] MEDS: duloxetine 30 mg Capsule 60 MG PO (09:12)
[2020-10-13] MEDS: carvedilol 12.5 mg Tablet PO (09:12)
[2020-10-13 11:48] LABS: Glucose Point of Care 277 mg/dL (70-110)
--- NOTE | 2020-10-13 11:53 | P.PN_ITS ---
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 Patient stated he can not clearly recall all events however does remember standing up from sitting position and feeling dizzness prior to event. Woke up on the ground. Stated he was feeling to weak to stand up again. Denied chest pain or dyspnea. No recent changes to medication. Denied fever, chills, nausea, vomiting, abdominal pain or dark bloody bowel movements. Stated he has been feeling well in the past few weeks. laboratory workup on arrival to emergency room showed a WBC of 8.0, hemoglobin 9.0, hematocrit 32.6 and a platelet count of 336. INR 1.43. Arterial blood gases showed a pH of 7.40, pCO2 of 38, and bicarb 23.7. Sodium 136, potassium 4.8, chloride 98, bicarb 18, BUN 34 and creatinine of 2.5. Most recent creatinine in March was 1.5. Glucose of 243. lactic acid of 2.3. Repeat was 1.0. Magnesium 2.1. LFTs were within normal limits. Creatinine kinase was 32. troponin T baseline was 47 with a repeat of 47.31 at 120 minutes and 44.62 at 6:00 a.m.. ProBNP was 3943. TSH of 5.23. Lipase of 80. urinalysis was unremarkable. Influenza A/B and COVID 19 antigen was negative. Imaging studies included a CT head without contrast which showed remote large left [employer] DESIGNER infarct and small left frontoparietal infarct. No acute abnormalities were seen. CT of cervical spine did not show any evidence of severe central canal stenosis. Chest x-ray showed cardiomegaly, prior sternotomy without any acute findings. Pelvis x-ray was negative. In review of records patient did have a CTA of neck in march which had shown severe left internal carotid artery stenosis and echo which showed EF of 30-35% and decrease RV systolic disfunction. In ER patient was given IV bolus of NS. AICD interogation was sent however pending. Patient was awake, alert with out any distress at the time of my eval. Subjective 10/13/20 Overnight patient did not have any new complaints however was noted to have decrease urine output. Rosa catheter was placed. Denied any prior history of urinary issues or prostate issues. No chest pain or dyspnea. Denied any dark stools. Medications: Reviewed: Yes Vitals/I&O/Wt Last Vital Signs Temp 98 F 10/13/20 11:34 Pulse 69 10/13/20 11:34 Resp 17 10/13/20 11:34 BP 95/46 10/13/20 11:34 Pulse Ox 95 10/13/20 11:34 10/12/20 10/13/20 10/13/20 22:59 06:59 14:59 Intake Total 240 / 240 360 / 360 Output Total 1350 / 1350 450 / 1800 Balance -1110 / -1110 -450 / -1560 360 / 360 Weight last 48 hrs Weight 113.398 kg Physical Exam Narrative: EXAM NARRATIVE: General: Alert, awake, NAD HEENT : Grossly unremakable CHEST : Non-labored respiration CVS : Normal Sinus Rythym ABD : Soft, NT, ND EXT : Mild B/L Le edema Neuro : CN 2-12 intact, MS -5/5 Urinary Catheter Management^: Rosa: Cath Placed During This Visit: yes Reason for Continuing Indwelling Catheter: Acute Urinary Retention or Obstruction Urinary Catheter Date of Insertion: 10/12/20 Urinary Catheter Time of Insertion: 13:51 Data : 10/13/20 05:05 10/13/20 05:05 Micro: Microbiology 10/12/20 13:54 Urine Culture - Preliminary Urine Catheterized 10/12/20 11:45 Blood Culture - Preliminary Blood SPECIMEN COLLECTED 10/12/20 11:45 Blood Culture - Preliminary Blood SPECIMEN COLLECTED A&P Assessment and plan (1) Syncope: Status: Acute Qualifiers: Syncope type: unspecified Qualified Code(s): R55 - Syncope and collapse (2) Atherosclerotic heart disease of [place] coronary artery without angina pectoris: Status: Acute Qualifiers: [place] vs. transplanted heart: [place] heart Qualified Code(s): I25.10 - Atherosclerotic heart disease of [place] coronary artery without angina pectoris (3) Carotid artery stenosis with cerebral infarction: Status: Acute (4) AV malformation of gastrointestinal tract: Status: Acute (5) Chronic anticoagulation: Status: Acute (6) Hx of aortic valve replacement: Status: Acute (7) Acute kidney injury: Status: Acute (8) Type 2 diabetes mellitus: Status: Acute Qualifiers: Diabetes mellitus mcfp insulin use: with remote computer terminal operator use Diabetes mellitus complication status: with hyperglycemia Qualified Code(s): E11.65 - Type 2 diabetes mellitus with hyperglycemia; Z79.4 - tank terminal gauger (current) use of insulin (9) Hypertension: Status: Acute Qualifiers: Hypertension type: unspecified Qualified Code(s): I10 - Essential (primary) hypertension (10) ICD (implantable cardioverter-defibrillator) in place: Status: Acute (11) Atrial fibrillation: Status: Acute Qualifiers: Atrial fibrillation type: permanent Qualified Code(s): I48.21 - Permanent atrial fibrillation (12) CHF (congestive heart failure): Status: Acute Qualifiers: Heart failure type: systolic Heart failure chronicity: chronic Qualified Code(s): I50.22 - Chronic systolic (congestive) heart failure (13) CAD (coronary artery disease): Status: Acute Qualifiers: Coronary Disease-Associated Artery/Lesion type: [place] artery [place] vs. transplanted heart: [place] heart Associated angina: without angina Qualified Code(s): I25.10 - Atherosclerotic heart disease of [place] coronary artery without angina pectoris (14) CVA (cerebral vascular accident): Status: Acute Qualifiers: CVA mechanism: embolism Precerebral and cerebral artery: middle cerebral artery Laterality of affected vessel: right Qualified Code(s): I63.411 - Cerebral infarction due to embolism of right middle cerebral artery Syncopal Episode - Etiology unclear - CT head/cervical spine- no acute findings - Possibly orthostasis - Follow up on orthostatic vitals - Repeat Limited ECHO - assess LV function - Pending - AICD interogation - Report pending - Cardiac telemetry - monitor for arrythemia - No evidence of acute infectious process - PT/OT consult - Fall precautions Acute on chronic anemia - Etiology of anemia multi-factorial - Hx of GI bleed - 04/08/20 EGD - Normal appearing esophagus, stomach and duodenum. - Hb 9.0 - > 7.5 - Repeat at noon today - Holding aspirin, plavix and eliquis for now - Obtain records from [facility] - Transfuse 1 unit of RBC if repeat hb < 8.0 - Iron studies, haptoglobin, LDH, B12 in am - If hb stable will resume plavix and eliquis - hold asa Acute on chronic stage 3 kidney disease - Creatinine baseline around 1.5 -1.7 - Improved today to 1.5 - UA - WNL - S/p NS bolus - Hold Diuretics - Renally dose meds - Avoid hypotension - Repeat BMP in AM - Monitor and record urine output Urinary Retention - Rosa placed - Start flomax 0.4 mg PO daily - Will attempt rosa removal and voiding trial prior to d.c Elevated Troponin hx of CAD s/p CABG - 47-> 47- > 44 - Trend not consistent with ACS - Ruled out - No chest pain - Holding antiplatelts below due to anemia - Aspirin 81 mg PO daily - held - Plavix 75 mg PO daily -held - Lipitor 80 mg PO daily - Coreg 12.5 mg PO BID - Resume entresto - F/u on repeat ECHO - Consider card input - EKG PRN Paroxysmal Atrial Fibrillation - Rate control with coreg 12.5 mg PO BID - Continue eliquis 5 mg PO BID - Held due to anemia - Monitor on tele Chronic systolic heart failure (EF 30-35%) hx of AICD - W/O exacerbation - ECHO 03/2020- noted in HPI - Repeat limited echo ordered - Daily weight - Holding diuretics - Cautious fluid resuscitation - AICD interrogation ( denied discharge ) Hypertension/Dyslipidemia - Meds as above Diabetes Mellitus with neuropathy - Sliding scale insulin - Diabetic diet Hx of 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 F-P stroke - No residual deficits - Asa/Plavix/Eliquis - held due to anemia - Continue statin - PT/OT Carotid artery stenosis s/p L. CEA w recent stent - Severe LICA Restenosis noted in 03/2020 - L. Carotid stent was placed in 03/2020 - Meds as above - Unlikely to cause syncopal event Hx of Aortic valve endocarditis s/p Biprosthetic AVR - Stable - Following cardiology on outpatient DVT ppx - SCDs only - Anticoagulation held due to anemia Attestations Medical Necessity Statement*: Due to acute drop in hemoglobin, pending cardiac workup will likely require over 2 midnight stay in hospital evaluation and treatment Time Spent in Patient Care: Greater than 35 minutes (>than 50% of time spent in counselling and/or direct pt care on unit) . Coding Level of Care Code Acute Clinical Trials Systems Administrator for Chg Fwd Diagnoses Syncope R55 Syncope type: unspecified Atherosclerotic heart disease of [place] coronary artery without angina pectoris I25.10 [place] vs. transplanted heart: [place] heart Carotid artery stenosis with cerebral infarction I63.239 AV malformation of gastrointestinal tract K55.20 Chronic anticoagulation Z79.01 Hx of aortic valve replacement Z95.2 Acute kidney injury N17.9 Type 2 diabetes mellitus E11.65; Z79.4 Diabetes mellitus mcfp insulin use: with mcfp use Diabetes mellitus complication status: with hyperglycemia Hypertension I10 Hypertension type: unspecified ICD (implantable cardioverter-defibrillator) in place Z95.810 Atrial fibrillation I48.21 Atrial fibrillation type: permanent CHF (congestive heart failure) I50.22 Heart failure type: systolic Heart failure chronicity: chronic CAD (coronary artery disease) I25.10 Coronary Disease-Associated Artery/Lesion type: [place] artery [place] vs. transplanted heart: [place] heart Associated angina: without angina CVA (cerebral vascular accident) I63.411 CVA mechanism: embolism Precerebral and cerebral artery: middle cerebral artery Laterality of affected vessel: right
--- NOTE | 2020-10-13 12:50 | PC.OT ---
OT EVALUATION ORDERS RECEIVED. PATIENT SAT ON EOB INDEPENDENTLY AND WAS ABLE TO WEIGHT SHIFT AND POSITION SELF. ABLE TO FEED SELF. NO FURTHER SKILLED OT REQUIRED.
[2020-10-13 12:54] LABS: Hematocrit 29.1 % (42.0-52.0); Hemoglobin 8.3 g/dL (11.7-16.6)
[2020-10-13 17:01] LABS: Glucose Point of Care 135 mg/dL (70-110)
[2020-10-13] MEDS: atorvastatin 40 mg Tablet 80 MG PO (20:26)
[2020-10-13 20:57] LABS: Glucose Point of Care 327 mg/dL (70-110)
[2020-10-13] MEDS: trazodone 50 mg Tablet PO (22:21)
[2020-10-14] VITALS (7 sets, daily range): BP systolic 101–126; BP diastolic 49–76; PULSE 69–77; RESP 15–18; TEMP 36.3–37.2; O2SAT 94–99
[2020-10-14 06:32] LABS: Glucose Point of Care 135 mg/dL (70-110)
[2020-10-14] MEDS: apixaban 5 mg Tablet PO (08:38)
[2020-10-14] MEDS: clopidogrel 75 mg Tablet PO (08:38)
[2020-10-14] MEDS: duloxetine 30 mg Capsule 60 MG PO (08:38)
[2020-10-14] MEDS: escitalopram 10 mg Tablet PO (08:38)
[2020-10-14] MEDS: pantoprazole DR 40 mg Tablet PO (08:38)
[2020-10-14] MEDS: carvedilol 12.5 mg Tablet PO (08:38)
[2020-10-14 10:51] LABS: Basophils # 0.1 10^3/uL (0.0-0.1); Basophils % 0.8 %; Eosinophils # 0.2 10^3/uL (0.0-0.8); Eosinophils % 2.3 %; Hematocrit 29.3 % (42.0-52.0); Hemoglobin 8.1 g/dL (11.7-16.6); Lymphocytes # 0.6 10^3/uL (0.8-4.8); Lymphocytes % 8.5 %; Mean Corpuscular HGB Conc 27.6 g/dL (30.0-36.0); Mean Corpuscular Hemoglobin 22.8 pg (28.0-34.0); Mean Corpuscular Volume 82.5 fL (80-94); Mean Platelet Volume 10.3 fL (7.4-10.4); Monocytes # 0.7 10^3/uL (0.2-0.9); Monocytes % 9.1 %; Neutrophils # 5.93 10^3/uL (1.8-7.7); Neutrophils % 79.2 %; Nucleated Red Blood Cells % 0 %; Platelet Count 232 10^3/cmm (130-400); Red Blood Count 3.55 10^6/uL (4.1-5.3); Red Cell Distribution Width 18.7 % (12.1-15.1); White Blood Count 7.5 10^3/uL (4.0-10.0)
[2020-10-14 11:23] LABS: Glucose Point of Care 373 mg/dL (70-110)
[2020-10-14 11:44] LABS: Alanine Aminotransferase 8 U/L (0-41); Albumin Level 3.8 g/dL (3.5-5.2); Alkaline Phosphatase 91 IU/L (40-130); Anion Gap 16.3 (5-19); Aspartate Amino Transferase 12 U/L (0-40); Blood Urea Nitrogen 26 mg/dL (8-23); Calcium 9.2 mg/dL (8.5-10.5); Carbon Dioxide 22 mmol/L (22-29); Chloride 101 mmol/L (98-107); Globulin 2.9 g/dL (1.3-4.6); Glomerular Filtration Rate 46.5 mL/min (90-130); Glucose 293 mg/dL (65-115); Magnesium 2.2 mg/dL (1.7-2.3); Osmolality Calculated 296 mOsm/kg (285-295); Potassium 4.3 mmol/L (3.5-5.1); Sodium 135 mmol/L (136-145); Total Bilirubin 0.7 mg/dL (0.15-1.2); Total Protein 6.7 g/dL (6.6-8.7)
[2020-10-14 16:19] LABS: Glucose Point of Care 247 mg/dL (70-110)
--- NOTE | 2020-10-14 16:53 | PM.DCS ---
Discharge Providers Date of Admission: 10/14/20 07:41 Date of Discharge: October 14, 2020 Attending Provider at Admission: Yara Rocha Attending Provider at Discharge: Yara Rocha Primary Care Provider: Teo Fields MD Diagnoses at Discharge Discharge Diagnosis (1) Syncope: Status: Resolved Qualifiers: Syncope type: unspecified Qualified Code(s): R55 - Syncope and collapse (2) Atherosclerotic heart disease of [place] coronary artery without angina pectoris: Status: Acute Qualifiers: [place] vs. transplanted heart: [place] heart Qualified Code(s): I25.10 - Atherosclerotic heart disease of [place] coronary artery without angina pectoris (3) Carotid artery stenosis with cerebral infarction: Status: Acute (4) AV malformation of gastrointestinal tract: Status: Acute (5) Chronic anticoagulation: Status: Acute (6) Hx of aortic valve replacement: Status: Acute Permanent problem details: bioprosthetic, 2013 (7) Acute kidney injury: Status: Acute (8) Type 2 diabetes mellitus: Status: Acute Permanent problem details: A1c 6.30 March 2020 Qualifiers: Diabetes mellitus complication status: with hyperglycemia Diabetes mellitus buttermaker helper insulin use: with fdc use Qualified Code(s): E11.65 - Type 2 diabetes mellitus with hyperglycemia; Z79.4 - alf (current) use of insulin (9) Hypertension: Status: Acute Qualifiers: Hypertension type: unspecified Qualified Code(s): I10 - Essential (primary) hypertension (10) ICD (implantable cardioverter-defibrillator) in place: Status: Acute Permanent problem details: possibly St Ho device (11) Atrial fibrillation: Status: Acute Qualifiers: Atrial fibrillation type: permanent Qualified Code(s): I48.21 - Permanent atrial fibrillation (12) CHF (congestive heart failure): Status: Acute Permanent problem details: EF ~30% Qualifiers: Heart failure chronicity: chronic Heart failure type: systolic Qualified Code(s): I50.22 - Chronic systolic (congestive) heart failure (13) CAD (coronary artery disease): Status: Acute Qualifiers: Associated angina: without angina Coronary Disease-Associated Artery/Lesion type: [place] artery [place] vs. transplanted heart: [place] heart Qualified Code(s): I25.10 - Atherosclerotic heart disease of [place] coronary artery without angina pectoris (14) CVA (cerebral vascular accident): Status: Acute Qualifiers: CVA mechanism: embolism Laterality of affected vessel: right Precerebral and cerebral artery: middle cerebral artery Qualified Code(s): I63.411 - Cerebral infarction due to embolism of right middle cerebral artery Reason for Visit Reason for Visit: AMS Hospital Course Hospital Course 70-year-old male with a past medical history significant for gout, hypertension, dyslipidemia, diabetes mellitus, 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 Patient stated he can not clearly recall all events however does remember standing up from sitting position and feeling dizzness prior to event. Woke up on the ground. Stated he was feeling to weak to stand up again. Denied chest pain or dyspnea. No recent changes to medication. Denied fever, chills, nausea, vomiting, abdominal pain or dark bloody bowel movements. Stated he has been feeling well in the past few weeks. laboratory workup on arrival to emergency room showed a WBC of 8.0, hemoglobin 9.0, hematocrit 32.6 and a platelet count of 336. INR 1.43. Arterial blood gases showed a pH of 7.40, pCO2 of 38, and bicarb 23.7. Sodium 136, potassium 4.8, chloride 98, bicarb 18, BUN 34 and creatinine of 2.5. Most recent creatinine in March was 1.5. Glucose of 243. lactic acid of 2.3. Repeat was 1.0. Magnesium 2.1. LFTs were within normal limits. Creatinine kinase was 32. troponin T baseline was 47 with a repeat of 47.31 at 120 minutes and 44.62 at 6:00 a.m.. ProBNP was 3943. TSH of 5.23. Lipase of 80. urinalysis was unremarkable. Influenza A/B and COVID 19 antigen was negative. Imaging studies included a CT head without contrast which showed remote large left AIRCRAFT B[employer] REPAIRER infarct and small left frontoparietal infarct. No acute abnormalities were seen. CT of cervical spine did not show any evidence of severe central canal stenosis. Chest x-ray showed cardiomegaly, prior sternotomy without any acute findings. Pelvis x-ray was negative. In review of records patient did have a CTA of neck in march which had shown severe left internal carotid artery stenosis and echo which showed EF of 30-35% and decrease RV systolic disfunction.In ER patient was given IV bolus of NS. AICD interogation was sent however pending. Patient was awake, alert with out any distress at the time of my eval. Upon admission to hospital patient was worked up for syncope. Orthostatic vitals were found to be normal. Limited ECHO was done and noted to be preseved. No acute change was seen. No acute arrythemia was seen on telemetry. No acute infectious process was noted. Anemia was noted however remained stable. No evidence of acute GI bleed. Anticoagulation was initally held however resumed. Patients aspirin was discontinued after discussion with cardiology. Resumed on plavix and eliquis. Urinary retention was initially noted for which rosa was required however discontinued prior to discharge. Patient was started on flomax 0.4 mg PO daily. Patient was wanting to discharge home. Adivsed to follow up with PCP/Cardiology shortly after discharge. Physical Exam Narrative: EXAM NARRATIVE: General: Alert, awake, NAD HEENT : Grossly unremakable CHEST : Non-labored respiration CVS : Normal Sinus Rythym ABD : Soft, NT, ND EXT : Mild B/L Le edema Neuro : CN 2-12 intact, MS -5/5 Urinary Catheter Management^: Rosa: Cath Placed During This Visit: yes Reason for Continuing Indwelling Catheter: Acute Urinary Retention or Obstruction Urinary Catheter Date of Insertion: 10/12/20 Urinary Catheter Time of Insertion: 13:51 Discharge Data Data Completed and Pending: Completed Studies During Hospitalization Category Date Time Status CT cervical spin wo con* 94456 Urge nt Cat Scan 10/12/20 11:[address] head wo con* 7 0450 Stat Cat Scan 10/12/20 10:59 Completed XR chest 1V barbara ble 23445 Stat Exams 10/12/20 11:12 Completed XR pelvis 1-2V* 7 5950 Stat Exams 10/12/20 11:13 Completed CV echo limited 9 3308 Routine Ultrasound 10/13/20 07:00 Completed Pending at discharge Category Date Time Status Blood Culture Sta t Lab 10/12/20 11:45 Results Complete Blood Co unt w/Auto AM LABS Lab 10/15/20 04:00 Ordered Comprehensive Met abolic Panel AM LA BS Lab 10/15/20 04:00 Ordered Magnesium AM LABS Lab 10/15/20 04:00 Ordered Labs from last 24 hours 10/14/20 10/14/20 10/14/20 16:08 10:45 10:04 WBC RBC Hgb Hct MCV MCH MCHC RDW Plt Count MPV Neut % (Auto) Lymph % (Auto) [place] % (Auto) Eos % (Auto) Baso % (Auto) Neut # (Auto) Lymph # (Auto) [place] # (Auto) Eos # (Auto) Baso # (Auto) Nucleated RBC % (a uto) Nucleated RBCs # Sodium 135 L Potassium 4.3 Chloride 101 Carbon Dioxide 22 Anion Gap 16.3 BUN 26 H Creatinine 1.5 H GFR Calculation 46.5 L Glucose 293 H POC Glucose 247 H 373 H Calculated Osmolal ity 296 H Calcium 9.2 Magnesium 2.2 Total Bilirubin 0.7 AST 12 ALT 8 Alkaline Phosphata se 91 Total Protein 6.7 Albumin 3.8 Globulin 2.9 10/14/20 10/14/20 10/13/20 10:04 06:15 20:56 WBC 7.5 RBC 3.55 L Hgb 8.1 L Hct 29.3 L MCV 82.5 MCH 22.8 L MCHC 27.6 L RDW 18.7 H Plt Count 232 MPV 10.3 Neut % (Auto) 79.2 Lymph % (Auto) 8.5 [place] % (Auto) 9.1 Eos % (Auto) 2.3 Baso % (Auto) 0.8 Neut # (Auto) 5.93 Lymph # (Auto) 0.6 L [place] # (Auto) 0.7 Eos # (Auto) 0.2 Baso # (Auto) 0.1 Nucleated RBC % (a uto) 0 Nucleated RBCs # 0.0 Sodium Potassium Chloride Carbon Dioxide Anion Gap BUN Creatinine GFR Calculation Glucose POC Glucose 135 H 327 H Calculated Osmolal ity Calcium Magnesium Total Bilirubin AST ALT Alkaline Phosphata se Total Protein Albumin Globulin 10/13/20 16:55 WBC RBC Hgb Hct MCV MCH MCHC RDW Plt Count MPV Neut % (Auto) Lymph % (Auto) [place] % (Auto) Eos % (Auto) Baso % (Auto) Neut # (Auto) Lymph # (Auto) [place] # (Auto) Eos # (Auto) Baso # (Auto) Nucleated RBC % (a uto) Nucleated RBCs # Sodium Potassium Chloride Carbon Dioxide Anion Gap BUN Creatinine GFR Calculation Glucose POC Glucose 135 H Calculated Osmolal ity Calcium Magnesium Total Bilirubin AST ALT Alkaline Phosphata se Total Protein Albumin Globulin Vitals: Last Vital Signs Temp 97.5 F L 10/14/20 12:00 Pulse 76 10/14/20 15:31 Resp 17 10/14/20 15:31 BP 116/59 10/14/20 15:31 Pulse Ox 99 10/14/20 15:31 Discharge Plan Discharge Patient Disposition: Home Condition: Stable Prescriptions: New Flomax 0.4 mg capsule 0.4 mg PO DAILY Qty: 30 RF: 0 Continued colchicine 0.6 mg tablet 0.6 mg PO DAILY PRN (Reason: GOUT) RF: 0 carvedilol 12.5 mg tablet 12.5 mg PO DAILY RF: 0 Eliquis 5 mg tablet 5 mg PO BID@08, RF: 0 duloxetine 30 mg capsule,delayed release(DR/EC) 60 mg PO DAILY@08 RF: 0 tramadol-acetaminophen 37.5-325 mg tablet 1 tab PO BID PRN (Reason: Pain) RF: 0 Entresto 24-26 mg tablet 1 tab PO BID@,20 RF: 0 pantoprazole 40 mg tablet,delayed release (DR/EC) 40 mg PO DAILY@08 RF: 0 escitalopram oxalate 10 mg Tablet 10 mg PO DAILY RF: 0 Lasix 40 mg Tablet 40 mg PO DAILY PRN (Reason: Edema) RF: 0 metformin 1,000 mg Tablet 1,000 mg PO BID@,17 RF: 0 clopidogrel 75 mg tablet 75 mg PO DAILY@08 RF: 0 rosuvastatin 20 mg tablet 20 mg PO DAILY@20 RF: 0 Jardiance 10 mg tablet 10 mg PO DAILY@08 RF: 0 Discontinued aspirin [Aspir-81] 81 mg Tablet,Delayed Release (Dr/Ec) 81 mg PO DAILY RF: 0 torsemide 100 mg tablet 100 mg PO DAILY@08 RF: 0 Discharge Orders: Discharge Order (Routine); Ordered 10/14/20 Ordered By: Yara Rocha Other Ambulatory Orders: Complete Blood Count w/Man Dif (Routine) Timeframe: 3 Days Facility: [facility] - Location: Lab - Main Lab Ordered By: Yara Rocha Referrals: Teo Fields MD [Primary Care Provider] - 1-3 days ([facility] will call you with an appointment. If you don't hear from them you may call [phone]) Sascha Londono MD [Physician] - 1 week Jimenez Armijo MD [Physician] - 1 week Discharge Diet: Advance as tolerated Discharge Activity: Increase activity as tolerated Patient Instructions: Syncope, Heart Failure (DC), CHF Stoplight Activity Restrictions/Additional Instructions: Avoid driving until seen and cleared by PCP on follow up visit. Return to hospital if any chest pain, dyspnea or onset of dark stools. Discharge Attestations Time Spent in Discharge Care*: greater than 30 min Specific Discharge Activities: educating patient, educating and/or supporting family/caregiver, discussing with casework supervisor/social workers/dc planners, documenting/other paperwork and evaluating patient/reviewing data Status at Discharge: Cognitive status at discharge: cognitively intact, Behavioral status at discharge: cooperative, Quality Metrics Clinical Quality Measures During this hospital stay, did patient experience: None Coding Level of Care Code Acute Tube Lancer for Chg Fwd Diagnoses Syncope R55 Syncope type: unspecified Atherosclerotic heart disease of [place] coronary artery without angina pectoris I25.10 [place] vs. transplanted heart: [place] heart Carotid artery stenosis with cerebral infarction I63.239 AV malformation of gastrointestinal tract K55.20 Chronic anticoagulation Z79.01 Hx of aortic valve replacement Z95.2 Acute kidney injury N17.9 Type 2 diabetes mellitus E11.65; Z79.4 Diabetes mellitus complication status: with hyperglycemia Diabetes mellitus buttermaker helper insulin use: with buttermaker helper use Hypertension I10 Hypertension type: unspecified ICD (implantable cardioverter-defibrillator) in place Z95.810 Atrial fibrillation I48.21 Atrial fibrillation type: permanent CHF (congestive heart failure) I50.22 Heart failure chronicity: chronic Heart failure type: systolic CAD (coronary artery disease) I25.10 Associated angina: without angina Coronary Disease-Associated Artery/Lesion type: [place] artery [place] vs. transplanted heart: [place] heart CVA (cerebral vascular accident) I63.411 CVA mechanism: embolism Laterality of affected vessel: right Precerebral and cerebral artery: middle cerebral artery
--- NOTE | 2020-10-14 16:56 | PC.NURSE ---
DC instructions given to patient. voiced full understanding. IV DC'd cath intact bleeding controlled with 2x2 and coban. patient to main entrance via wheelchair to private vehicle with zero difficulties
== END 2020-10-14 16:56 | disposition home or self-care (01) | DRG 292 ==
LOC: ER 14:26 → MEDSURG 10-13 09:24 → CSU 10-17 09:56
PROVIDERS: Admitting Provider Hospitalist; Emergency Provider Emergency Medicine; PCP Internal Medicine; Visit Provider Hospitalist
DX: I13.0 Hypertensive heart and chronic kidney disease with heart failure and stage 1 through stage 4 chronic kidney disease, or unspecified chronic kidney disease (principal); N17.9 Acute kidney failure, unspecified; I48.21 Permanent atrial fibrillation; D63.1 Anemia in chronic kidney disease; I25.10 Atherosclerotic heart disease of native coronary artery without angina pectoris; E11.65 Type 2 diabetes mellitus with hyperglycemia; Z79.4 Long term (current) use of insulin; Z95.3 Presence of xenogenic heart valve; Z79.01 Long term (current) use of anticoagulants; Z95.810 Presence of automatic (implantable) cardiac defibrillator; E78.5 Hyperlipidemia, unspecified; Z95.1 Presence of aortocoronary bypass graft; Z20.828 Contact with and (suspected) exposure to other viral communicable diseases; Z79.82 Long term (current) use of aspirin; Z79.02 Long term (current) use of antithrombotics/antiplatelets; N18.30 Chronic kidney disease, stage 3 unspecified; E11.22 Type 2 diabetes mellitus with diabetic chronic kidney disease; R33.9 Retention of urine, unspecified; E11.40 Type 2 diabetes mellitus with diabetic neuropathy, unspecified; Z87.891 Personal history of nicotine dependence; Z86.73 Personal history of transient ischemic attack (TIA), and cerebral infarction without residual deficits
CPT/HCPCS: 12345; 36415; 36416; 36600; 51702; 70450; 71045; 72125; 72170; 80053; 81001; 82009; 82550; 82803; 82962; 83605; 83690; 83735; 83880; 84145; 84443; 84484; 85014; 85018; 85025; 85610; 87040; 87086; 87426; 87804; 90471; 90686; 93005; 93308; 96372; 97110; 97161; 99283; G0378; J1815; J7030

== ENCOUNTER → 2020-10-20 15:59 | Outpatient (BNVA) | payer MEDICARE, SELFPAY | PROVIDERS: PCP Internal Medicine; Visit Provider Internal Medicine | DX: D64.9 Anemia, unspecified (principal) | CPT/HCPCS: 82270; 82607; 82746; 83550; 85045 ==

== ENCOUNTER 2020-11-10 09:12 | Outpatient (CLI) | payer MEDICARE, SELFPAY ==
--- NOTE | 2020-11-10 | USCV_ITS ---
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 Resting GARIMA was 1.0 on the left side with a TBI of 0.5 CONCLUSIONS 1. Features of moderate peripheral artery disease on the right side 2. Normal GARIMA with abnormal TBI on the left side suggestive of mild to moderate peripheral artery disease possibly involving the distal vessels. Dr Sascha Londono MD [facility] (Electronically Signed) Final Date: 10 November 2020 20:38 S
--- NOTE | 2020-11-10 09:30 | USCV_ITS ---
Abhay Varghese Age: 70 Gender: M : 1950 Exam Date: 11/10/2020 09:41 Ordering Phys: Sascha Londono MD ([email or web address]) Technologist: Jose Sequeira [place] [facility] [place]ication: ASHD Risk Factors: Previous Vascular Surgery: RIGHT LEFT Waveform Velocity (cm/s) Velocity (cm/s) Waveform Monophasic Iliac Prox Triphasic 52.8 109.5 Monophasic 55.2 Iliac Mid 142.0 Triphasic Monophasic 49.7 Iliac Distal 148.8 Triphasic Monophasic 55.2 HIGH ENERGY FORMING EQUIPMENT OPERATOR 124.9 Biphasic Monophasic 39.6 SFA Prox 118.0 Biphasic Monophasic 54.8 SFA Mid 100.9 Biphasic Monophasic 38.3 SFA Dist 123.1 Biphasic Monophasic 271.4 POP 85.3 Biphasic Monophasic 38.5 VICE PRESIDENT SAFETY 180.3 Monophasic N/A DPA 54.4 Biphasic FINDINGS Monophasic Doppler waveforms on the right side. Elevated velocity in the right popliteal artery with no Doppler flow signals in the dorsalis pedis artery Elevated velocity in the left posterior tibial artery. Mild to moderate diffuse plaques in the iliac and femoral arteries bilaterally CONCLUSIONS 1. Features suggestive of high-grade stenosis at the proximal iliac artery on the right side 2. Elevated velocity and abnormal Doppler waveform at the popliteal artery suggestive of greater than 70% gnosis on the right side. 3. Possible total occlusion of the dorsalis pedis artery on the right side 4. Features of hemodynamically significant stenosis in the left posterior tibial artery ABIs were not obtained. No similar previous studies are available for comparison Dr Sascha Londono MD [facility] (Electronically Signed) Final Date: 10 November 2020 21:04 S
--- NOTE | 2020-11-10 10:15 | USCV_ITS ---
Abhay Varghese Age: 70 Gender: M : 1950 Exam Date: 11/10/2020 09:24 Ordering Phys: Sascha Londono MD ([email or web address]) Technologist: Jose Sequeira Exam Location: [facility] – [place] Indication: OCCLUSION AND STENOSIS OF BILAT CAROTID Risk Factors: Previous Vascular Surgery: ICA STENT Right Brachial BP: / Left Brachial BP: / Right Left Velocity (cm/s) Spectral Plaque Velocity (cm/s) Spectral Plaque Syst/Diast Broadening Syst/Diast Broadening 67.30/ 11.00 Prox CCA 59.95 / 15.15 71.70/ 18.70 Mid CCA 63.40 / 16.55 61.70/ 16.50 Hetro Distal CCA 72.15 / 19.70 119.60/28.00 Hetro Prox ICA 70.70 / 12.40 104.10/24.90 Hetro Mid ICA 116.50/ 23.30 129.00/29.50 Hetro Distal ICA 132.10/ 26.40 239.30 ECA 144.25 1.80 ICA/CCA 1.82 Antegrade Vertebral Antegrade 66.80/ 15.50 cm/s / cm/s Bi Subclavian [place] 79.20 77.70 FINDINGS Moderate heterogeneous plaques at the right bifurcation and proximal ICA. Patent stented segment of the left ICA. Elevated velocity in the left distal ICA Antegrade flow in the vertebral arteries bilaterally Elevated Doppler flow velocity in the right external carotid artery. Abnormal Doppler waveform in the left subclavian artery-delayed peaking, monophasic The stent in the left ICA was found to be widely patent. CONCLUSIONS Moderate heterogeneous plaques at the right bifurcation, suggestive of less than 50% stenosis . Patent stented segment in the left ICA the no evidence of any stenosis. Elevated Doppler flow velocity in the right external carotid artery, suggestive of hemodynamically significant stenosis Abnormal Doppler waveform in the left subclavian artery may suggest hemodynamically significant stenosis, proximally Consider CTA of the head and neck, to better evaluate the left subclavian artery.(No mention of the left subclavian artery in the CTA report from March 2020). Presence of the stent in the left ICA is new compared to the previous study from April [address] Sascha Londono MD [facility] (Electronically Signed) Final Date: 11 November 2020 13:44 S
== END 2020-11-10 09:13 | disposition home or self-care (01) ==
LOC: US 09:13
PROVIDERS: PCP Internal Medicine; Visit Provider Internal Medicine Cardiovascular Disease
DX: M79.604 Pain in right leg (principal); I65.23 Occlusion and stenosis of bilateral carotid arteries
CPT/HCPCS: 93880; 93922; 93925

== ENCOUNTER 2020-11-16 11:12 | Outpatient (RCR) | payer MEDICARE, SELFPAY ==
[2020-11-09] MEDS: ferric carboxy (IVPB) 750 MG in sodium chloride 0.9% (100 ml) 100 ML 345 MG IV (11:38)
[2020-11-09 11:46] VITALS: BP 100/62; PULSE 76; RESP 18; TEMP 36.6; O2SAT 97; BMI 34.2
[2020-11-16] MEDS: ferric carboxy (IVPB) 750 MG in sodium chloride 0.9% (100 ml) 100 ML 345 MG IV (11:41)
[2020-11-16 11:45] VITALS: BP 111/45; PULSE 78; RESP 18; TEMP 36.1; O2SAT 96
== END 2020-11-22 23:59 | disposition home or self-care (01) ==
LOC: OPS 11:12
PROVIDERS: PCP Internal Medicine; Visit Provider Internal Medicine
DX: D50.9 Iron deficiency anemia, unspecified (principal)
CPT/HCPCS: 96365; J1439

== ENCOUNTER → 2020-11-17 15:05 | Outpatient (BNVA) | payer MEDICARE, SELFPAY | PROVIDERS: PCP Internal Medicine; Visit Provider Internal Medicine Cardiovascular Disease | DX: E78.5 Hyperlipidemia, unspecified (principal); Z79.01 Long term (current) use of anticoagulants | CPT/HCPCS: 80061; 80076; 85025 ==

== ENCOUNTER 2020-11-23 10:52 | Outpatient (RCR) | payer MEDICARE, SELFPAY ==
[2020-11-23 11:31] VITALS: BP 95/50; PULSE 85; RESP 18; TEMP 36.9; O2SAT 98
[2020-11-23 11:35] VITALS: BMI 35.1
[2020-11-23] MEDS: ferric carboxy (IVPB) 750 MG in sodium chloride 0.9% (100 ml) 100 ML 345 MG IV (11:37)
== END 2020-12-20 23:59 | disposition home or self-care (01) ==
LOC: OPS 10:52
PROVIDERS: PCP Internal Medicine; Visit Provider Internal Medicine
DX: D50.9 Iron deficiency anemia, unspecified (principal)
CPT/HCPCS: 96365; J1439

== ENCOUNTER → 2021-04-13 09:30 | Outpatient (BNVA) | payer MEDICARE, SELFPAY | PROVIDERS: PCP Internal Medicine; Visit Provider Internal Medicine | DX: K90.9 Intestinal malabsorption, unspecified (principal); D50.0 Iron deficiency anemia secondary to blood loss (chronic) | CPT/HCPCS: 83550; 85025 ==

== ENCOUNTER → 2021-04-19 08:21 | Outpatient (BNVA) | payer MEDICARE, SELFPAY | PROVIDERS: PCP Internal Medicine; Visit Provider Internal Medicine Cardiovascular Disease | DX: E78.5 Hyperlipidemia, unspecified (principal) | CPT/HCPCS: 80048 ==

== ENCOUNTER → 2021-05-03 09:45 | Outpatient (BNVA) | payer MEDICARE, SELFPAY | PROVIDERS: PCP Internal Medicine; Visit Provider Internal Medicine Cardiovascular Disease | DX: I25.10 Atherosclerotic heart disease of native coronary artery without angina pectoris (principal); I25.5 Ischemic cardiomyopathy; E78.5 Hyperlipidemia, unspecified; Z95.2 Presence of prosthetic heart valve; R06.00 Dyspnea, unspecified; I63.239 Cerebral infarction due to unspecified occlusion or stenosis of unspecified carotid artery; N17.9 Acute kidney failure, unspecified; I73.9 Peripheral vascular disease, unspecified | CPT/HCPCS: 80048; 83880 ==

== ENCOUNTER → 2021-05-18 08:41 | Outpatient (BNVA) | payer MEDICARE, SELFPAY | PROVIDERS: PCP Internal Medicine; Visit Provider Internal Medicine Cardiovascular Disease | DX: I25.5 Ischemic cardiomyopathy (principal); I25.10 Atherosclerotic heart disease of native coronary artery without angina pectoris; E78.5 Hyperlipidemia, unspecified; I73.9 Peripheral vascular disease, unspecified; R06.00 Dyspnea, unspecified; I50.23 Acute on chronic systolic (congestive) heart failure; I65.23 Occlusion and stenosis of bilateral carotid arteries; I50.22 Chronic systolic (congestive) heart failure | CPT/HCPCS: 80048; 83880 ==

== ENCOUNTER → 2021-06-08 11:28 | Outpatient (BNVA) | payer MEDICARE, SELFPAY | PROVIDERS: PCP Internal Medicine; Visit Provider Internal Medicine Cardiovascular Disease | DX: I11.0 Hypertensive heart disease with heart failure (principal); I50.33 Acute on chronic diastolic (congestive) heart failure; E78.5 Hyperlipidemia, unspecified; R06.02 Shortness of breath; I25.10 Atherosclerotic heart disease of native coronary artery without angina pectoris; I50.22 Chronic systolic (congestive) heart failure; I48.21 Permanent atrial fibrillation; Z95.2 Presence of prosthetic heart valve; I73.9 Peripheral vascular disease, unspecified; Z95.810 Presence of automatic (implantable) cardiac defibrillator; I25.5 Ischemic cardiomyopathy; K55.21 Angiodysplasia of colon with hemorrhage | CPT/HCPCS: 80048; 80061; 83880 ==

== ENCOUNTER 2021-06-14 09:34 | Outpatient (CLI) | payer MEDICARE, SELFPAY ==
--- NOTE | 2021-06-14 09:44 | XR_ITS ---
WS: [id number] Exam: XR ankle LT min 3V* [id number] Date/Time of Exam: 06/14/2021 9:44 AM Reason For Exam: Acute injury No acute fracture or dislocation. Lateral soft tissue swelling. No joint effusion seen. Surgical skin clips are noted along the medial aspect of the lower tibia. XR/XR ankle LT min 3V* [id number] IMPRESSION: 1. Soft tissue swelling about the ankle but no fracture or dislocation.
== END 2021-06-14 09:35 | disposition home or self-care (01) ==
PROVIDERS: PCP Internal Medicine; Visit Provider Nurse Practitioner Family
DX: M25.572 Pain in left ankle and joints of left foot (principal); M79.89 Other specified soft tissue disorders
CPT/HCPCS: 73610

== ENCOUNTER → 2021-09-14 14:49 | Outpatient (BNVA) | payer MEDICARE, SELFPAY | PROVIDERS: PCP Internal Medicine; Visit Provider Internal Medicine | DX: K90.9 Intestinal malabsorption, unspecified (principal) | CPT/HCPCS: 83550 ==

== ENCOUNTER → 2021-10-13 12:40 | Outpatient (BNVA) | payer MEDICARE, SELFPAY | PROVIDERS: PCP Internal Medicine; Visit Provider Internal Medicine Cardiovascular Disease | DX: I11.0 Hypertensive heart disease with heart failure (principal); I50.23 Acute on chronic systolic (congestive) heart failure; R06.02 Shortness of breath; I50.33 Acute on chronic diastolic (congestive) heart failure; I77.9 Disorder of arteries and arterioles, unspecified; I25.5 Ischemic cardiomyopathy; Z95.810 Presence of automatic (implantable) cardiac defibrillator; I48.21 Permanent atrial fibrillation; I25.10 Atherosclerotic heart disease of native coronary artery without angina pectoris; I65.23 Occlusion and stenosis of bilateral carotid arteries | CPT/HCPCS: 80048; 83880 ==

== ENCOUNTER → 2021-10-21 11:00 | Outpatient (BNVA) | payer MEDICARE, SELFPAY | PROVIDERS: PCP Internal Medicine; Visit Provider Internal Medicine | DX: D75.89 Other specified diseases of blood and blood-forming organs (principal); K90.9 Intestinal malabsorption, unspecified; I73.9 Peripheral vascular disease, unspecified; K55.21 Angiodysplasia of colon with hemorrhage; Z23 Encounter for immunization | CPT/HCPCS: 82607; 82746; 83550 ==

== ENCOUNTER 2021-11-12 07:43 | Outpatient (CLI) | payer MEDICARE, SELFPAY ==
--- NOTE | 2021-11-12 08:00 | USCV_ITS ---
Abhay Varghese Age: 71 Gender: M : 1950 Exam Date: 11/12/2021 07:59 Ordering Phys: Sascha Londono MD ([email or web address]) Technologist: Baylee Tam Exam Location: [facility] – [place] Indication: DISORDER OF ARTERIES AND ARTERIOLES Risk Factors: Previous Vascular Surgery: Right Brachial BP: / Left Brachial BP: / Right Left Velocity (cm/s) Spectral Plaque Velocity (cm/s) Spectral Plaque Syst/Diast Broadening Syst/Diast Broadening 82.00/ 6.80 Prox CCA 86.80 / 21.10 71.80/ 15.40 Mid CCA 57.90 / 16.10 61.50/ 10.30 Distal CCA 68.90 / 17.60 157.20/27.30 Prox ICA 71.90 / 21.10 164.10/45.60 Mid ICA 98.00 / 36.00 85.40/ 23.70 Distal ICA 98.00 / 28.50 276.10 ECA 90.95 2.29 ICA/CCA 1.69 Antegrade Vertebral Antegrade 84.10/ 14.50 cm/s 89.20/ 24.00 cm/s Tri Subclavian [place] 153.8 165.5 0 0 FINDINGS Moderate to heavy heterogeneous plaques of the right bifurcation and proximal internal carotid artery. Minimal plaques in the left bifurcation.? Stented segment in the proximal ICA appears to be widely patent Antegrade flow in the vertebral artery bilaterally Heavy plaques at the proximal segment of the right external carotid artery Abnormal Doppler signals in the left subclavian artery CONCLUSIONS Moderate to heavy heterogeneous plaques of the right bifurcation and proximal internal carotid artery with velocity elevation, consistent with 50 to 69% stenosis. Mild to moderate plaques of the left bifurcation with patent stented segment at the proximal ICA. Abnormal Doppler signals in the left subclavian artery, may suggest high-grade proximal subclavian stenosis. Consider CTA, if clinically indicated. Compared to the study from 11/10/2020, there is some worsening of stenosis in the proximal ICA on the right side Dr Sascha Londono MD [facility] (Electronically Signed) Final Date: 12 November 2021 18:12 S
== END 2021-11-12 07:44 | disposition home or self-care (01) ==
LOC: RAD 07:49
PROVIDERS: PCP Internal Medicine; Visit Provider Internal Medicine Cardiovascular Disease
DX: I77.9 Disorder of arteries and arterioles, unspecified (principal); I65.23 Occlusion and stenosis of bilateral carotid arteries
CPT/HCPCS: 93880

== ENCOUNTER → 2021-12-03 09:05 | Day surgery (SDC) | payer MEDICARE, SELFPAY ==
[2021-12-03] MEDS: ferric carboxy (IVPB) 750 MG in sodium chloride 0.9% (100 ml) 100 ML 345 MG IV (09:30)
[2021-12-03 09:31] VITALS: BP 113/53; PULSE 70; RESP 18; TEMP 35.7; O2SAT 97
== END ==
PROVIDERS: PCP Internal Medicine; Visit Provider Internal Medicine
DX: D50.9 Iron deficiency anemia, unspecified (principal)
CPT/HCPCS: 96365; J1439

== ENCOUNTER → 2021-12-10 08:08 | Day surgery (SDC) | payer MEDICARE, SELFPAY ==
[2021-12-10 09:53] VITALS: BP 124/66; PULSE 67; RESP 18; TEMP 35.9; O2SAT 100
[2021-12-10] MEDS: ferric carboxy (IVPB) 750 MG in sodium chloride 0.9% (100 ml) 100 ML 345 MG IV (10:05)
== END ==
PROVIDERS: PCP Internal Medicine; Visit Provider Internal Medicine
DX: K90.9 Intestinal malabsorption, unspecified (principal)
CPT/HCPCS: 96365; J1439

== ENCOUNTER 2021-12-10 08:21 | Outpatient (CLI) | payer MEDICARE, SELFPAY ==
--- NOTE | 2021-12-10 08:30 | CT_ITS ---
WS: [id number] CT ANGIOGRAM CEREBRAL AND CAROTID ARTERIES HISTORY: I65.22 - Occlusion and stenosis of left carotid artery TECHNIQUE: CT angiogram is performed of the carotid and cerebral arteries. During arterial injection imaging is obtained from the skull vertex to the aortic arch in 1.25 mm imaging. Coronal and sagittal reformats are submitted. Additional multi planar reformats of the carotid and cerebral arteries are submitted, MIP imaging also reviewed. NASCET criteria utilized. [facility] CT scans at [facility] us e at least one of these dose optimization techniques: automated exposure control; mA and/or kV adjust ment per patient size (includes targeted exams where dose is matched to clinical indication); or iter ative reconstruction. CONTRAST: Visipaque 320; 95 mL IV. DLP: 2848.07 mGy.cm COMPARISON: 04/05/2020 and carotid ultrasound 11/12/2021 Carotid Angiogram: Right carotid: Common carotid artery: No high-grade stenosis. Scattered calcified plaque. Internal carotid artery: No plaque or stenosis. External carotid artery: Calcified plaque with at least moderate stenosis. Left carotid: Common carotid artery: Arises normally from the base of the innominate. Scattered calcified plaque. M ild diffuse intimal thickening towards the bifurcation. There is short arterial stent in the region o f the proximal LEFT ICA which is patent. Internal carotid artery: No plaque or stenosis. External carotid artery: Calcified plaque with least moderate stenosis. Right vertebral artery: Unremarkable. Left vertebral artery: Unremarkable. Arises normally from the subclavian artery. Subclavian arteries: No stenosis or significant abnormality. Upper thorax: Breathing motion artifact. Small layering bilateral pleural effusions are reidentified. These have decreased in size since 04/05/2020. Pulmonary artery is enlarged at 4.7 cm. Mild atheroscl erotic plaque within the visualized thoracic aorta and prior CABG. LEFT high, paratracheal lymph node measures 8 mm. Additional indeterminate lymph nodes RIGHT supraclavicular location were probably pre sent in a similar diameter on the prior examination. Largest measures 10 mm. Thyroid gland: Normal. Osseous structures: Unremarkable. CEREBRAL ANGIOGRAM: Intracranial vertebral arteries: Small caliber distal RIGHT vertebral artery. There is a small amount of plaque in the distal vertebral arteries at foramen magnum but no complete occlusion. Basilar artery: No significant stenosis or occlusion. No aneurysm. Intracranial Internal carotid arteries: Moderate calcified plaque through the intracranial carotid ar teries. Moderate to severe nearly diffuse calcified plaque extends through the cavernous and supracli noid portions of the carotid arteries. No aneurysm. Middle cerebral arteries: Mild atherosclerotic plaque with narrowing. No high-grade obstruction. Smal ler M2 and L3 segment on the LEFT. Anterior cerebral arteries and ACOM: Atherosclerotic changes but no stenosis or aneurysm. Posterior cerebral arteries and PCOM's: Mild atherosclerotic changes with no stenosis. Normal enhancing. Large remote LEFT SOLAR PROJECT COORDINATION SPECIALIST infarct. Additional microvascular ischemic changes in the LEF T periventricular white matter. Mastoid air cells: Normal. Paranasal sinuses: Normal. Calvarium: Normal. CT/CT angio headneck* [id number] IMPRESSION: 1. No significant subclavian artery stenosis. 2. Mild stenosis of involving the RIGHT proximal ICA 50%. Focal calcified plaq ue. 3. No significant stenosis LEFT ICA. The LEFT ICA stent is patent. 4. Pulmonary hypertension. 5. More advanced atherosclerotic plaque through the cavernous and supraclinoid portions of the intracranial carotid arteries. Stenosis greater than 60%. 6. Remote LEFT SOLAR PROJECT COORDINATION SPECIALIST infarct.
[2021-12-10 09:08] LABS: Blood Urea Nitrogen 31 mg/dL (8-23); Glomerular Filtration Rate 43.1 mL/min (90-130)
[2021-12-10] MEDS: iodixanol 320 mg/mL 100mL Btl IV (09:42)
== END 2021-12-10 08:22 | disposition home or self-care (01) ==
PROVIDERS: PCP Internal Medicine; Visit Provider Internal Medicine Cardiovascular Disease
DX: Z01.812 Encounter for preprocedural laboratory examination (principal); I65.23 Occlusion and stenosis of bilateral carotid arteries; I27.20 Pulmonary hypertension, unspecified
CPT/HCPCS: 70496; 70498; 82565; 84520

== ENCOUNTER → 2021-12-15 11:10 | Outpatient (BNVA) | payer MEDICARE, SELFPAY | PROVIDERS: PCP Internal Medicine; Visit Provider Internal Medicine Cardiovascular Disease | DX: I25.5 Ischemic cardiomyopathy (principal); R06.02 Shortness of breath; I50.33 Acute on chronic diastolic (congestive) heart failure; Z79.01 Long term (current) use of anticoagulants; D64.9 Anemia, unspecified; R07.9 Chest pain, unspecified; I25.10 Atherosclerotic heart disease of native coronary artery without angina pectoris | CPT/HCPCS: 80048; 83880; 85025 ==

== ENCOUNTER → 2021-12-17 11:48 | Day surgery (SDC) | payer MEDICARE, SELFPAY ==
[2021-12-17 12:20] VITALS: BP 110/48; PULSE 90; RESP 18; TEMP 36.2; O2SAT 98
[2021-12-17] MEDS: ferric carboxy (IVPB) 750 MG in sodium chloride 0.9% (100 ml) 100 ML 345 MG IV (12:31)
== END ==
LOC: GILAB 11:50
PROVIDERS: PCP Internal Medicine; Visit Provider Internal Medicine
DX: I63.239 Cerebral infarction due to unspecified occlusion or stenosis of unspecified carotid artery (principal)
CPT/HCPCS: 96365; J1439

== ENCOUNTER → 2021-12-31 09:49 | Outpatient (BNVA) | payer MEDICARE, SELFPAY | PROVIDERS: PCP Internal Medicine; Visit Provider Internal Medicine Cardiovascular Disease | DX: Z95.810 Presence of automatic (implantable) cardiac defibrillator (principal); I48.21 Permanent atrial fibrillation; I50.22 Chronic systolic (congestive) heart failure | CPT/HCPCS: 93284 ==

== ENCOUNTER → 2022-07-01 09:25 | Outpatient (BNVA) | payer MEDICARE, SELFPAY | PROVIDERS: PCP Internal Medicine; Visit Provider Internal Medicine Cardiovascular Disease | DX: Z45.010 Encounter for checking and testing of cardiac pacemaker pulse generator [battery] (principal) | CPT/HCPCS: 93281 ==

== ENCOUNTER → 2022-08-02 16:02 | Outpatient (BNVA) | payer MEDICARE, SELFPAY | PROVIDERS: PCP Internal Medicine; Visit Provider Internal Medicine | DX: D64.9 Anemia, unspecified (principal); D50.0 Iron deficiency anemia secondary to blood loss (chronic); I48.21 Permanent atrial fibrillation | CPT/HCPCS: 80053; 82607; 83550; 84443; 85025 ==

== ENCOUNTER → 2023-05-04 10:48 | Outpatient (BNVA) | payer MEDICARE, SELFPAY | PROVIDERS: PCP Internal Medicine; Visit Provider Internal Medicine Cardiovascular Disease | DX: I25.10 Atherosclerotic heart disease of native coronary artery without angina pectoris (principal); Z95.810 Presence of automatic (implantable) cardiac defibrillator; I48.21 Permanent atrial fibrillation; I50.22 Chronic systolic (congestive) heart failure; D75.89 Other specified diseases of blood and blood-forming organs; I73.9 Peripheral vascular disease, unspecified; E78.5 Hyperlipidemia, unspecified; Z95.2 Presence of prosthetic heart valve; N17.9 Acute kidney failure, unspecified; D50.9 Iron deficiency anemia, unspecified; K92.2 Gastrointestinal hemorrhage, unspecified; E11.65 Type 2 diabetes mellitus with hyperglycemia; Z79.4 Long term (current) use of insulin; I25.5 Ischemic cardiomyopathy; I65.23 Occlusion and stenosis of bilateral carotid arteries; I63.411 Cerebral infarction due to embolism of right middle cerebral artery; I13.0 Hypertensive heart and chronic kidney disease with heart failure and stage 1 through stage 4 chronic kidney disease, or unspecified chronic kidney disease; E11.22 Type 2 diabetes mellitus with diabetic chronic kidney disease; N18.9 Chronic kidney disease, unspecified; Z86.73 Personal history of transient ischemic attack (TIA), and cerebral infarction without residual deficits; Z87.891 Personal history of nicotine dependence; Z79.01 Long term (current) use of anticoagulants; Z79.84 Long term (current) use of oral hypoglycemic drugs | CPT/HCPCS: 99215 ==

== ENCOUNTER 2023-05-05 10:20 | Emergency (ER) | payer MEDICARE, SELFPAY ==
[2023-05-05 10:28] VITALS: BP 117/70; PULSE 81; RESP 16; TEMP 36.8; O2SAT 96; BMI 35.2
--- NOTE | 2023-05-05 10:31 | XR_ITS ---
WS: [id number] Right hand, 3 views, 05/05/2023 Clinical Data: fall with wrist and hand pain Comparison: None. Findings: No new fractures or dislocations are seen. There is soft tissue swelling on the dorsum of the hand. There is an old healed fracture of the right fifth metacarpal. There are cystic changes at the base of the right first metacarpal along with vascular calcifications. XR/XR hand RT min 3V* [id number] Impression: 1. Negative for acute fracture. 2. Soft tissue swelling over dorsum of the right hand.
--- NOTE | 2023-05-05 10:31 | XR_ITS ---
WS: [id number] Right wrist, 3 views, 05/05/2023 Clinical Data: fall with wrist pain Comparison: None. Findings: No fractures or dislocations are seen. The carpal bones are intact. There is no soft tissue swelling. The distal radius and ulna are not remarkable. There are small cysts at the base of the right first metacarpal. There are vascular calcifications. XR/XR wrist RT min 3V* [id number] Impression: Negative right wrist.
--- NOTE | 2023-05-05 10:56 | ED_ITS ---
HPI - Extremity Problem General: Chief complaint: Extremity Injury, Upper Stated complaint: hand/wrist injury from fall Time Seen by Provider: 05/05/23 10:33 History of Present Illness: Patient is a 72-year-old male comes to the ED with right wrist pain and swelling. Injury occurred approximately 3 days ago. [place] walking with his golf cleats on. His cleats caught a tree branch and he tripped and fell down face forwards. He had his right arm extended out to help break his fall. Patient says he did not completely fall to the ground since he caught himself with his right arm out. Since fall he has had pain and swelling in his right wrist and hand with limited range of motion in his wrist. He rates his pain as mild but it does become about a 5 or 6 if he tries to move his wrist. Denies any head injury or loss of consciousness. Associated symptoms: Deny chest pain, fever(s) or rash Review of Systems Const: Denies: fever(s), chills or fatigue Eyes: Denies: change in vision or eye discomfort ENMT: Denies: throat pain, odynophagia, nasal discharge or nasal congestion Card: Denies: chest pain, palpitations, edema, swelling of feet/ankles, dyspnea on exertion or orthopnea Resp: Denies: dyspnea, productive cough or non-productive cough GI: Denies: abdominal pain, nausea, vomiting, diarrhea, constipation or hematochezia : Denies: flank pain, difficulty urinating, dysuria or hematuria Musc: Reports: extremity pain (Right hand and right wrist) and extremity swelling (Right hand and right wrist); Denies: neck pain or back pain Skin/Breast: Denies: rash or new lesions Neuro: Denies: headache(s), numbness in extremities or weakness in extremities PFS ED PFSH: Medical History Atherosclerotic heart disease of [place] coronary artery without angina pectoris Atrial fibrillation AV malformation of gastrointestinal tract Bilateral carotid artery stenosis Patient had a stenting of the left ICA in April 2020 CAD (coronary artery disease) Carotid artery stenosis with cerebral infarction CHF (congestive heart failure) EF ~30% CVA (cerebral vascular accident) Diabetes Dyslipidemia Endocarditis Gout Hypertension ICD (implantable cardioverter-defibrillator) in place possibly St Ho device Ischemic cardiomyopathy Leg pain, right TIA (transient ischemic attack) Type 2 diabetes mellitus A1c 6.30 March 2020 Surgical History 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 H/O carotid endarterectomy Hx of aortic valve replacement bioprosthetic, 2013 Hx of CABG 1998, 5V Family History Father Bleeding disorder Clotting disorder Diabetes CAD (coronary artery disease) Chronic kidney disease (CKD) Lung disease Stroke Other Family history of premature coronary artery disease Hyperlipidemia Hypertension Denies family history of Dementia Suicide Anesthesia complication Cancer Social History Smoking and tobacco status: former smoker Alcohol intake: current Alcohol intake frequency: holidays/special occasions only Substance/Drug Use: former Date of last use: tried everything in the 60s Desire information about substance/drug rehabilitation?: No Housing: House Physical Exam Const: COMMON NORMALS: no acute distress, patient oriented x3, healthy appearing and alert HENMT: COMMON NORMALS: normocephalic HEAD & SCALP: normocephalic MOUTH: Normal oral and palatal mucosa present THROAT: posterior oropharynx normal and uvula midline Neck/C-Spine: COMMON NORMALS: supple GENERAL: Yes normal visual inspection Resp: COMMON NORMALS: normal respiratory effort, No retractions, No use of accessory muscles and clear to auscultation bilaterally AUSCULTATION: clear to auscultation bilaterally Cardio: COMMON NORMALS: regular rate, regular rhythm, S1 normal heart sound present, S2 normal heart sound present, No gallops present (Cardio), No clicks present (Cardio), No murmurs present (Cardio) and Peripheral pulses 2+ throughout RATE: regular rate RHYTHM: regular rhythm HEART SOUNDS: S1 normal heart sound present and S2 normal heart sound present PERIPHERAL PULSES: Peripheral pulses 2+ throughout GI: COMMON NORMALS: Normal to inspection, nondistended, normoactive bowel sounds present, Soft to palpation, non-tender and no masses PALPATION: Yes Soft to palpation : COMMON NORMALS: Yes no CVA tenderness BLADDER/KIDNEY EXAM: Yes no CVA tenderness Back/Pelvis: COMMON NORMALS: no CVA tenderness Extremity: NARRATIVE EXTREMITY EXAM: Right hand and wrist?ecchymosis, swelling noted. No visible deformity seen. Full range of motion in wrist. Neurovascular intact distally. Tenderness over radial aspect of wrist. Neuro: COMMON NORMALS: patient oriented x3 SENSORIUM/ORIENTATION: Yes alert GAIT: Yes Normal gait present Skin: GENERAL SKIN EXAM: dry skin Course Vital Signs: Vital signs: Vital Signs Temperature 98.3 F 05/05/23 10:28 Pulse Rate 81 05/05/23 10:28 Respiratory Rate 16 05/05/23 10:28 Blood Pressure 117/70 05/05/23 10:28 Pulse Oximetry 96 05/05/23 10:28 Oxygen Delivery Me thod Room Air 05/05/23 10:28 MDM - Extremity (Nontraumatic) Medical Decision Making Patient is a 72-year-old male comes to the ED with right wrist pain and swelling. Injury occurred approximately 3 days ago. Patient [place] and was walking with his golf cleats on. His cleats caught a tree branch and he tripped and fell down face forwards. He had his right arm extended out to help break his fall. Patient says he did not completely fall to the ground since he caught himself with his right arm out. Since fall he has had pain and swelling in his right wrist and hand with limited range of motion in his wrist. He rates his pain as mild but it does become about a 5 or 6 if he tries to move his wrist. Denies any head injury or loss of consciousness. Vital stable. Right hand and wrist?ecchymosis, swelling noted. No visible deformity seen. Full range of motion in wrist. Neurovascular intact distally. Tenderness over radial aspect of wrist. X-ray of right wrist and right hand showed no acute fractures or findings. Patient was diagnosed with a right wrist sprain and was put in a Velcro wrist splint and discharged home. Told to follow-up with his PCP within the next week for reevaluation. Return to ED precautions given. Patient understood and agreed with plan. Lab Data Radiology Impressions Hand X-Ray 05/05/23 10:31 Impression: 1. Negative for acute fracture. 2. Soft tissue swelling over dorsum of the right hand. Wrist X-Ray 05/05/23 10:31 Impression: Negative right wrist. Discharge Plan Discharge Patient Disposition: Home Clinical Impression: Sprain of right wrist Qualifiers: Encounter type: initial encounter Qualified Code(s): S63.501A - Unspecified sprain of right wrist, initial encounter Condition: Stable Prescriptions: No Action allopurinol 100 mg tablet 100 mg PO DAILY Qty: 90 3RF colchicine [Colcrys] 0.6 mg tablet See Rx Instructions PO ONCE Qty: 3 0RF Hold Instructions: Doctor's Order Rx Instructions: 1.2 mg PO once; then 0.6mg in 1 hour duloxetine 60 mg capsule,delayed release(DR/EC) 60 mg PO DAILY Qty: 90 3RF Entresto 49-51 mg tablet 1 tab PO BID Qty: 60 8RF Rx Instructions: dose is being decreased metformin 1,000 mg tablet 1,000 mg PO BID Qty: 180 3RF tadalafil 20 mg tablet 20 mg PO DAILY PRN (Reason: sexual activity) Qty: 30 0RF Rx Instructions: 340B-administer approximately 30min before sexual activity;-340B torsemide 20 mg tablet See Rx Instructions .ROUTE .COMPLEX Qty: 360 3RF Dose Instruction: TAKE 4 TABLETS BY MOUTH DAILY Rx Instructions: TAKE 2 TABLETS BY MOUTH DAILY Eliquis 5 mg tablet See Rx Instructions .ROUTE .COMPLEX Qty: 180 3RF Dose Instruction: Take 1 tablet by mouth twice daily at 8am and 8pm. Rx Instructions: Take 1 tablet by mouth twice daily at 8am and 8pm. carvedilol 12.5 mg tablet 12.5 mg PO DAILY Qty: 90 3RF tramadol-acetaminophen 37.5-325 mg tablet 1 tab PO BID PRN (Reason: Pain) Qty: 60 5RF potassium chloride 20 mEq tablet extended release 40 meq PO DAILY Qty: 180 3RF Entresto 97-103 mg tablet 1 tab PO BID Qty: 180 3RF Rx Instructions: Take 1 tab by mouth twice daily Discharge Orders: Discharge ED (Routine); Ordered 05/05/23 Ordered By: Federico Burgess Referrals: Teo Fields MD [Primary Care Provider] - Discharge Diet: Regular Discharge Activity: Limit activity as instructed Patient Instructions: Wrist Sprain (ED) Activity Restrictions/Additional Instructions: Follow-up with medical provider as directed within the next 7 to 10 days for reevaluation. Wear wrist brace to help with healing. Apply cold pack and elevate wrist and hand above elbow to help with swelling. Limit activity of right wrist until cleared by primary care doctor. Return to the ER or your medical provider if condition worsens. Please read and understand discharge instructions. Thank you for choosing [facility] [place] for your healthcare needs today. Please realize this is an emergency room and that we are providing you with a medical screening exam and this may not be complete and all inclusive of all the testing and or work up that you may need to determine your ailment or severity of your illness. It is very important that you follow up as instructed or that you return to the Emergency Department should you have concerns or if your condition changes or worsens in any way. Coding Level of Care Code ED Corporate Quality Assurance Manager for Alisha Conti
== END 2023-05-05 11:46 | disposition home or self-care (01) ==
PROVIDERS: Emergency Provider Physician Assistant; PCP Internal Medicine
DX: S63.501A Unspecified sprain of right wrist, initial encounter (principal); Z79.84 Long term (current) use of oral hypoglycemic drugs; Z79.01 Long term (current) use of anticoagulants; Z87.891 Personal history of nicotine dependence; I25.10 Atherosclerotic heart disease of native coronary artery without angina pectoris; I11.0 Hypertensive heart disease with heart failure; I50.9 Heart failure, unspecified; Z86.73 Personal history of transient ischemic attack (TIA), and cerebral infarction without residual deficits; E11.9 Type 2 diabetes mellitus without complications; E78.5 Hyperlipidemia, unspecified; Z95.810 Presence of automatic (implantable) cardiac defibrillator; Z95.1 Presence of aortocoronary bypass graft; W18.09XA Striking against other object with subsequent fall, initial encounter
CPT/HCPCS: 73110; 73130; 99283

== ENCOUNTER 2023-05-29 10:19 | Outpatient (CLI) | payer MEDICARE, SELFPAY ==
[2023-05-29 11:20] LABS: Magnesium 1.8 mg/dL (1.7-2.3); NT Pro B Type Natriuretic Pept 7134 pg/mL (0-125)
== END 2023-05-29 10:20 | disposition home or self-care (01) ==
PROVIDERS: PCP Internal Medicine; Visit Provider Internal Medicine Cardiovascular Disease
DX: I25.10 Atherosclerotic heart disease of native coronary artery without angina pectoris (principal); D50.0 Iron deficiency anemia secondary to blood loss (chronic); I50.22 Chronic systolic (congestive) heart failure
CPT/HCPCS: 36415; 83735; 83880

== ENCOUNTER 2023-06-15 09:45 | Outpatient (CLI) | payer MEDICARE, SELFPAY ==
[2023-06-15 10:59] LABS: NT Pro B Type Natriuretic Pept 6098 pg/mL (0-125)
== END 2023-06-15 09:46 | disposition home or self-care (01) ==
LOC: LAB 09:47
PROVIDERS: PCP Internal Medicine; Visit Provider Internal Medicine Cardiovascular Disease
DX: R79.89 Other specified abnormal findings of blood chemistry (principal)
CPT/HCPCS: 83880

== ENCOUNTER → 2023-11-22 17:14 | Outpatient (BNVA) | payer MEDICARE, SELFPAY | PROVIDERS: PCP Internal Medicine; Visit Provider Internal Medicine | DX: Z45.02 Encounter for adjustment and management of automatic implantable cardiac defibrillator (principal) | CPT/HCPCS: 93296 ==

== ENCOUNTER → 2024-04-11 13:40 | Outpatient (BNVA) | payer MEDICARE, SELFPAY | PROVIDERS: PCP Internal Medicine; Visit Provider Internal Medicine Cardiovascular Disease | DX: I65.23 Occlusion and stenosis of bilateral carotid arteries (principal); Z95.2 Presence of prosthetic heart valve; I25.10 Atherosclerotic heart disease of native coronary artery without angina pectoris; I11.0 Hypertensive heart disease with heart failure; I50.22 Chronic systolic (congestive) heart failure; I48.21 Permanent atrial fibrillation; Z95.810 Presence of automatic (implantable) cardiac defibrillator; I25.5 Ischemic cardiomyopathy; Z79.01 Long term (current) use of anticoagulants; E78.5 Hyperlipidemia, unspecified; E11.65 Type 2 diabetes mellitus with hyperglycemia; Z79.4 Long term (current) use of insulin; D64.9 Anemia, unspecified; Z98.890 Other specified postprocedural states; K74.60 Unspecified cirrhosis of liver; R18.8 Other ascites; E11.51 Type 2 diabetes mellitus with diabetic peripheral angiopathy without gangrene; Z86.73 Personal history of transient ischemic attack (TIA), and cerebral infarction without residual deficits | CPT/HCPCS: 99215 ==

== ENCOUNTER → 2024-05-29 09:27 | Outpatient (BNVA) | payer MEDICARE, SELFPAY | PROVIDERS: PCP Internal Medicine; Visit Provider Internal Medicine | DX: Z45.02 Encounter for adjustment and management of automatic implantable cardiac defibrillator (principal) | CPT/HCPCS: 93296 ==

== ENCOUNTER 2024-06-07 18:55 | Inpatient (IN) | payer MEDICARE, SELFPAY ==
[2024-06-07] VITALS (10 sets, daily range): BP systolic 114–128; BP diastolic 64–76; PULSE 70–72; RESP 14–26; TEMP 36.8–37.2; O2SAT 90–96; BMI 35.6
--- NOTE | 2024-06-07 18:59 | CTR_ITS ---
PROCEDURE INFORMATION: Exam: CT Head Without Contrast Exam date and time: 06/07/2024 6:56 PM Age: 73 years old Clinical indication: Stroke-like symptoms; Speech disturbance; Additional info: Possible stroke TECHNIQUE: Imaging protocol: Computed tomography of the head without contrast. Radiation optimization: All CT scans at this facility use at least one of these dose optimization techniques: automated exposure control; mA and/or kV adjustment per patient size (includes targeted exams where dose is matched to clinical indication); or iterative reconstruction. Other technique: STROKE PROTOCOL was implemented. COMPARISON: CT angio headneck* [id number] 12/10/2021 9:38 AM RADIATION DOSE METRICS: Total DLP (mGy-cm): 1499.28 FINDINGS: Brain: There are small old cortical infarct in the left posterior frontal cortex and there is large chronic infarct involving the left occipital lobe. There is moderate cortical atrophy. Low-density changes in the white matter are consistent with nonspecific small vessel chronic ischemic change. There is no intracranial mass, hemorrhage or edema. Cerebral ventricles: No ventriculomegaly. Paranasal sinuses: Visualized sinuses are unremarkable. No fluid levels. Mastoid air cells: Visualized mastoid air cells are well aerated. Bones: Unremarkable. No acute fracture. Soft tissues: Unremarkable. CT/CT head wo con* [id number] IMPRESSION: 1. Old cortical infarcts not significantly changed from previous. 2. No acute intracranial finding ASSESSMENT: ASPECTS ([place] Stroke Program Early CT Score) is 10.
--- NOTE | 2024-06-07 19:00 | XRR_ITS ---
PROCEDURE INFORMATION: Exam: XR Chest Exam date and time: 06/07/2024 7:28 PM Age: 73 years old Clinical indication: Shortness of breath; Prior surgery; Surgery date: 6+ months; Surgery type: Open heart/pacer; Additional info: Weakness TECHNIQUE: Imaging protocol: Radiologic exam of the chest. Views: 1 view. COMPARISON: CR XR chest 1V portable [id number] 10/12/2020 11:15 AM FINDINGS: Tubes, catheters and devices: There is transvenous AICD in place with leads in appropriate position. Lungs: There is some compressive atelectasis at the lung bases. Pleural spaces: There are moderate bilateral pleural effusions right greater than left new compared with 10/12/2020. Heart/Mediastinum: The heart is moderately enlarged. Bones/joints: Sternotomy wires and mediastinal surgical clips are present, consistent with coronary arterial bypass grafting. XR/XR chest 1V portable [id number] IMPRESSION: Cardiomegaly and bilateral pleural effusions.
--- NOTE | 2024-06-07 19:01 | ECG_ITS ---
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1950 Requested By: Shakira Govea Order Number: [id number] Brandon MD: BRYCE IBANEZ Measurements Intervals [place] Rate: 69 P: 134 IL: 94 QRS: 217 QRSD: 78 T: 0 QT: 363 QTc: 391 Interpretive Statements ELECTRONIC ATRIAL PACEMAKER RIGHT AXIS DEVIATION [QRS AXIS > 100] LOW QRS VOLTAGE [QRS DEFLECTION < 0.5/1.0 mV IN LIMB/CHEST LEADS] POSSIBLE RIGHT VENTRICULAR CONDUCTION DELAY [RSR (QR) IN V1/V2] Compared to ECG 10/12/2020 17:50:52 Right-axis deviation now present Low QRS voltage now present there is no change Electronically Signed On 06-08-2024 20:24:01 CDT by BRYCE IBANEZ [id number]
[2024-06-07 19:09] LABS: Basophils # 0.1 10^3/uL (0.0-0.1); Basophils % 0.7 %; Eosinophils # 0.1 10^3/uL (0.0-0.8); Eosinophils % 0.7 %; Hematocrit 32.5 % (37-53); Lymphocytes # 0.5 10^3/uL (0.8-4.8); Lymphocytes % 5.5 %; Mean Corpuscular HGB Conc 33.2 g/dL (30-55); Mean Corpuscular Hemoglobin 36.5 pg (27-33); Mean Corpuscular Volume 109.8 fl (82-101); Mean Platelet Volume 10.4 fL (7.4-10.4); Monocytes # 0.9 10^3/uL (0.2-0.9); Monocytes % 10.2 %; Neutrophils # 7.21 10^3/uL (1.8-7.7); Neutrophils % 82.2 %; Nucleated Red Blood Cells % 0.3 %; Platelet Count 258 10^3/cmm (157-399); Red Blood Count 2.96 10^6/uL (3.85-5.65); Red Cell Distribution Width 21.2 % (12.1-15.1); White Blood Count 8.76 10^3/uL (3.29-11.43)
[2024-06-07 19:23] LABS: INR 1.82 (0.8-1.2)
[2024-06-07 19:24] LABS: Partial Thromboplastin Time 50.9 SECONDS (23.9-36.7)
[2024-06-07 19:29] LABS: Bilirubin Urine Negative (Negative); Blood Urine 2+ (Negative); Glucose Urine UA Negative (Normal); Ketones Urine Negative (Negative); Leukocyte Esterase Urine Trace (Negative); Nitrate Urine Negative (Negative); Protein Urine Trace (Negative); Urine Appearance Clear (CLEAR); Urine Color Yellow (Yellow); pH Urine 5.5 (5-7)
[2024-06-07 19:32] LABS: Bacteria Urine None Seen /hpf; Hyaline Casts Urine 13.22 /lpf; RBC Urine 21-50 /hpf (0-2); Squamous Epithelial Cell Urine 0-5 /hpf (0-5); WBC Urine 0-5 /hpf (0-5)
[2024-06-07 19:32] LABS: Alanine Aminotransferase 12 U/L (0-41); Albumin Level 3.9 g/dL (3.5-5.2); Alkaline Phosphatase 185 U/L (40-130); Anion Gap 22.1 (5-19); Aspartate Amino Transferase 21 U/L (0-40); Blood Urea Nitrogen 63 mg/dL (8-23); C Reactive Protein 28.3 mg/L (0.0-4.9); Calcium 9.5 mg/dL (8.5-10.5); Carbon Dioxide 23 mmol/L (22-29); Chloride 89 mmol/L (98-107); Creatinine Clr Calc Pharmacy 34.7499; Globulin 2.8 g/dL (1.3-4.6); Glucose 163 mg/dL (65-115); Osmolality Calculated 290 mOsm/kg (285-295); Potassium 5.1 mmol/L (3.5-5.1); Sodium 129 mmol/L (136-145); Total Bilirubin 1.7 mg/dL (0.15-1.2); Total Protein 6.7 g/dL (6.6-8.7)
[2024-06-07 19:39] LABS: Ammonia 40 umol/L (16-60)
[2024-06-07 20:00] LABS: UA Slide Review UA Slide Review Perf
[2024-06-07 20:01] LABS: Add Urine Culture? Yes
--- NOTE | 2024-06-07 20:09 | W.ED.NEUROSD ---
HPI - Neuro Symptoms/Deficit General: Chief Complaint: Neuro Symptoms/Deficit Stated Complaint: stroke alert Time Seen by Provider: 06/07/24 18:57 History of Present Illness: 73-year-old man with a history of congestive heart failure, with AICD placement, A-fib on Eliquis, cirrhosis with ascites, type 2 diabetes mellitus, hyperlipidemia, coronary artery disease who presents to the emergency room with altered mental status and concern for stroke. says that about 430 after she had returned home he was cooking dinner and suddenly could not tell her her name. He seemed somewhat confused. No focal motor deficits. No facial droop. When I interview him on the way to CT scan at arrival he is able to answer question but is very quiet and slightly slurred but no word salad. No known fevers. He had paracentesis and albumin yesterday. He follows with GI in [place]. Related Data Home Medications Medication Instructions Recorded Confirmed pantoprazole 40 mg tablet,delayed 40 mg PO DAILY 04/11/24 04/11/24 release Previous Rx's Medication Instructions Recorded colchicine 0.6 mg tablet (Colcrys) See Rx Instructions PO ONCE #3 tabs 08/04/21 metformin 1,000 mg tablet 1,000 mg PO BID #180 tabs 10/19/21 tadalafil 20 mg tablet 20 mg PO DAILY PRN sexual activity 12/28/21 #30 tabs allopurinol 100 mg tablet 100 mg PO DAILY #90 tabs 08/02/22 duloxetine 60 mg capsule,delayed 60 mg PO DAILY #90 caps 08/02/22 release tramadol 37.5 mg-acetaminophen 325 1 tab PO BID PRN Pain #60 tabs 08/02/22 mg tablet sacubitril 49 mg-valsartan 51 mg 1 tab PO BID #60 tabs 01/10/24 tablet (Entresto) torsemide 20 mg tablet 40 mg (2 x 20 mg) PO DAILY #180 04/11/24 tabs apixaban 5 mg tablet (Eliquis) See Rx Instructions .Route 05/13/24 .COMPLEX #180 tabs Allergies Allergy/AdvReac Type Severity Reaction Status Date / Time No Known Allergies Allergy Verified 04/11/24 13:50 Review of Systems General: Reports: ROS unobtainable due to medical condition and ROS unobtainable due to mental status PFS ED PFSH: Medical History Ascites Liver cirrhosis Anticoagulation adequate with anticoagulant therapy Leg pain, right Atherosclerotic heart disease of [place] coronary artery without angina pectoris Gout Carotid artery stenosis with cerebral infarction AV malformation of gastrointestinal tract Dyslipidemia Type 2 diabetes mellitus A1c 6.30 March 2020 Ischemic cardiomyopathy Diabetes Hypertension ICD (implantable cardioverter-defibrillator) in place possibly St Ho device Atrial fibrillation CHF (congestive heart failure) EF ~30% CAD (coronary artery disease) Endocarditis CVA (cerebral vascular accident) TIA (transient ischemic attack) Bilateral carotid artery stenosis Patient had a stenting of the left ICA in April 2020 Surgical History 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 Hx of CABG 1997, 5V Hx of aortic valve replacement bioprosthetic, 2012 H/O carotid endarterectomy Family History Father Bleeding disorder Clotting disorder Diabetes CAD (coronary artery disease) Chronic kidney disease (CKD) Lung disease Stroke Other Family history of premature coronary artery disease Hyperlipidemia Hypertension Denies family history of Dementia Suicide Anesthesia complication Cancer Social History Smoking and tobacco/nicotine status: former use of tobacco/nicotine Alcohol intake: current Alcohol intake frequency: holidays/special occasions only Substance/Drug Use: former Date of last use: tried everything in the 60s Housing: House Physical Exam Narrative: EXAM NARRATIVE: General: Somnolent but arousable Skin: Warm, dry Head: Normocephalic, atraumatic. Neck: Supple, trachea midline. Eye: Extraocular movements are intact. Ears, nose, mouth and throat: Dry oral mucosa. Cardiovascular: Regular rate and rhythm, Normal peripheral perfusion. Respiratory: Lungs are clear to auscultation, respirations are non-labored, breath sounds are equal, Symmetrical chest wall expansion. Gastrointestinal: Soft, Nontender, mild distention, normal bowel sounds. Musculoskeletal: no deformity. Neurological: Somnolent, will not answer most questions, slightly slurred speech, no obvious focal neurological deficit observed. Psychiatric: unable to assess. Course Vital Signs: Vital signs: Vital Signs Temperature 99 F 06/07/24 19:05 Pulse Rate 71 06/07/24 20:47 Respiratory Rate 26 H 06/07/24 20:47 Blood Pressure 128/74 06/07/24 20:47 Pulse Oximetry 96 06/07/24 20:47 MDM - Neuro Symptoms/Deficit Medical Decision Making Differential diagnosis: Differential diagnosis for patient with focal neurologic deficit(s) includes but not limited to and based on the above HPI, review of systems and physical exam: ischemic stroke, hemorrhagic stroke and embolic stroke secondary to atrial fibrillation), TIA, Sr's palsey, metabolic encephalopathy with previous stroke. Infection. Patient is on Eliquis so would not qualify for tPA. Consultation: I spoke with Dr. Hercules with neurology about the patient. She does not think this fits with a stroke type syndrome. Recommends continued workup for metabolic causes and infection. Consultation: I spoke with Dr. Rowe who is on-call for the hospitalist. He agrees to observation of the patient. Possible MRI tomorrow CT head: Old cortical infarcts that are unchanged from previous CT. No acute intracranial process. no intracranial hemorrhage, no evidence of infarct. no evidence of acute fracture.This was reviewed and interpreted by myself the ER physician. Chest x-ray: Stable cardiomegaly. Pleural effusions. AICD in place. No obvious focal infiltrates. No pneumothorax. This was reviewed and interpreted by myself the ER physician. Lab Review: Laboratory results were reviewed and interpreted by myself the emergency room physician. No leukocytosis. No anemia. Platelets are normal. Sodium is little bit low at 129. BUN and creatinine are 63 and 2.6. states that his creatinine was 2.8 last week. INR is elevated at 1.82. Urinalysis shows some hematuria but no signs of infection. Ammonia is only 40. Differential after workup: Metabolic encephalopathy versus stroke. Ammonia is not elevated which is surprising. No signs of infection thus far. No tenderness of the patient's abdomen. Has some redness of his legs had a temp of 99 so could still be something infectious. He also has a history of endocarditis. I have added Pro-Darian, blood cultures, lactate. Also would consider may be hypercapnic respiratory failure so adding an ABG. Also checking a drug screen and alcohol level. I reviewed the patient's medical record. Reexamination: Patient remains somewhat somnolent and will not answer questions at this point. He had answered a question for me earlier and answered appropriately but sounded somewhat slurred and quiet and somnolent. He does not demonstrate any focal motor deficits. His abdomen is not tender. Secondary lab review: Lactate is slightly elevated at 3.7. Pro-Darian is not elevated. Drug screen is negative. Alcohol level is negative. ABG shows no CO2 retention. Assessment and plan: Metabolic encephalopathy Hyponatremia Cirrhosis Chronic kidney disease -I discussed the patient with the hospitalist on-call who is admitting the patient. - Discussed findings and plan with patient. Answered any questions. - All laboratory values were reviewed and interpreted personally by myself, the ER physician - All imaging was reviewed and interpreted personally by myself, the ER physician. - Evaluation and treatment of this problem were appropriate in the emergency setting -I spent a total of >35 minutes of critical care time managing the patient, independent of any other practitioner. -The time involved in the performance of separately reportable procedures was not counted towards critical care time. Lab Data 06/07/24 18:00 06/07/24 18:[address] 06/07/24 18:59 IMPRESSION: 1. Old cortical infarcts not significantly changed from previous. 2. No acute intracranial finding ASSESSMENT: ASPECTS ([place] Stroke Program Early CT Score) is 10. Chest X-Ray 06/07/24 19:00 IMPRESSION: Cardiomegaly and bilateral pleural effusions. Laboratory Results WBC 8.76 10^3/uL (3.29-11.43) 06/07/24 18:00 RBC 2.96 10^6/uL (3.85-5.65) L 06/07/24 18:00 Hgb 10.80 g/dL (11.27-16.99) L 06/07/24 18:00 Hct 32.5 % (37-53) L 06/07/24 18:00 MCV 109.8 fl (82-101) H 06/07/24 18:00 MCH 36.5 pg (27-33) H 06/07/24 18:00 MCHC 33.2 g/dL (30-55) 06/07/24 18:00 RDW 21.2 % (12.1-15.1) H 06/07/24 18:00 Plt Count 258 10^3/cmm (157-399) 06/07/24 18:00 MPV 10.4 fL (7.4-10.4) 06/07/24 18:00 Neut % (Auto) 82.2 % 06/07/24 18:00 Lymph % (Auto) 5.5 % 06/07/24 18:00 [place] % (Auto) 10.2 % 06/07/24 18:00 Eos % (Auto) 0.7 % 06/07/24 18:00 Baso % (Auto) 0.7 % 06/07/24 18:00 Neut # (Auto) 7.21 10^3/uL (1.8-7.7) 06/07/24 18:00 Lymph # (Auto) 0.5 10^3/uL (0.8-4.8) L 06/07/24 18:00 [place] # (Auto) 0.9 10^3/uL (0.2-0.9) 06/07/24 18:00 Eos # (Auto) 0.1 10^3/uL (0.0-0.8) 06/07/24 18:00 Baso # (Auto) 0.1 10^3/uL (0.0-0.1) 06/07/24 18:00 Nucleated RBC % (auto) 0.3 % 06/07/24 18:00 Nucleated RBCs # 0.0 /100WBC 06/07/24 18:00 ESR 17 mm/hr (0-10) H 06/07/24 18:00 PT 21.70 SECONDS (12.1-14.9) H 06/07/24 18:00 INR 1.82 (0.8-1.2) H 06/07/24 18:00 APTT 50.9 SECONDS (23.9-36.7) H 06/07/24 18:00 Specimen Type Arterial 06/07/24 20:40 Sample Site Radial, right 06/07/24 20:40 ABG pH 7.46 (7.35-7.45) H 06/07/24 20:40 ABG pCO2 36.3 mmHg (35-45) 06/07/24 20:40 ABG HCO3 25.8 mmol/L (22-26) 06/07/24 20:40 ABG O2 Saturation 65.0 06/07/24 20:40 ABG Base Excess 2.0 mmol/L (-2.0-2.0) 06/07/24 20:40 Edis Test Pos 06/07/24 20:40 A-a O2 Gradient 9.2 mmHg (5-10) 06/07/24 20:40 Hematocrit 32.9 % (42-52) L 06/07/24 20:40 Hgb O2 Saturation 63.1 % (95-100) L 06/07/24 20:40 Carboxyhemoglobin 1.7 %THgb (0.4-20.1) 06/07/24 20:40 Methemoglobin 1.1 % (0.4-1.5) 06/07/24 20:40 Total Hemoglobin 10.7 g/dL (14-18) L 06/07/24 20:40 Sodium 128.0 mmol/L (131-143) L 06/07/24 20:40 Potassium 4.9 mmol/L (3.5-5.0) 06/07/24 20:40 Glucose 151.0 mg/dL (70-115) H 06/07/24 20:40 Ionized Calcium 1.1 mmol/L (1.1-1.4) 06/07/24 20:40 O2 Delivery Device None 06/07/24 20:40 X Ray Physician ID Cl 06/07/24 20:40 Sodium 129 mmol/L (136-145) L 06/07/24 18:00 Potassium 5.1 mmol/L (3.5-5.1) 06/07/24 18:00 Chloride 89 mmol/L (98-107) L 06/07/24 18:00 Carbon Dioxide 23 mmol/L (22-29) 06/07/24 18:00 Anion Gap 22.1 (5-19) H 06/07/24 18:00 BUN 63 mg/dL (8-23) H 06/07/24 18:00 Creatinine 2.6 mg/dL (0.7-1.2) H 06/07/24 18:00 GFR Calculation Not Reportable 06/07/24 18:00 Glucose 163 mg/dL (65-115) H 06/07/24 18:00 Calculated Osmolality 290 mOsm/kg (285-295) 06/07/24 18:00 Lactic Acid 3.7 mmol/L (0.5-2.2) H 06/07/24 19:20 Calcium 9.5 mg/dL (8.5-10.5) 06/07/24 18:00 Total Bilirubin 1.7 mg/dL (0.15-1.2) H 06/07/24 18:00 AST 21 U/L (0-40) 06/07/24 18:00 ALT 12 U/L (0-41) 06/07/24 18:00 Alkaline Phosphatase 185 U/L (40-130) H 06/07/24 18:00 Ammonia 40 umol/L (16-60) 06/07/24 19:13 C-Reactive Protein 28.3 mg/L (0.0-4.9) H 06/07/24 18:00 Total Protein 6.7 g/dL (6.6-8.7) 06/07/24 18:00 Albumin 3.9 g/dL (3.5-5.2) 06/07/24 18:00 Globulin 2.8 g/dL (1.3-4.6) 06/07/24 18:00 Procalcitonin 0.17 ng/mL (0-0.5) 06/07/24 19:20 Urine Color Yellow (Yellow) 06/07/24 19:20 Urine Appearance Clear (CLEAR) 06/07/24 19:20 Urine pH 5.5 (5-7) 06/07/24 19:20 Ur Specific [place] 1.010 (1.005-1.030) 06/07/24 19:20 Urine Protein Trace (Negative) A 06/07/24 19:20 Urine Glucose (UA) Negative (Normal) 06/07/24 19:20 Urine Ketones Negative (Negative) 06/07/24 19:20 Urine Blood 2+ (Negative) A 06/07/24 19:20 Urine Nitrate Negative (Negative) 06/07/24 19:20 Urine Bilirubin Negative (Negative) 06/07/24 19:20 Urine Urobilinogen 1.0 mg/dL (Negative) 06/07/24 19:20 Ur Leukocyte Esterase Trace (Negative) A 06/07/24 19:20 Urine RBC 21-50 /hpf (0-2) H 06/07/24 19:20 Urine WBC 0-5 /hpf (0-5) 06/07/24 19:20 Ur Squamous Epith Cells 0-5 /hpf (0-5) 06/07/24 19:20 Urine Bacteria None seen /hpf (NONE) 06/07/24 19:20 Hyaline Casts 13.22 /lpf 06/07/24 19:20 Urine Opiates Screen Negative ng/mL (Negative) 06/07/24 19:20 Ur Barbiturates Screen Negative ng/mL (Negative) 06/07/24 19:20 Ur Phencyclidine Scrn Negative ng/mL (Negative) 06/07/24 19:20 Ur Amphetamines Screen Negative ng/mL (Negative) 06/07/24 19:20 U Benzodiazepines Scrn Negative ng/mL (Negative) 06/07/24 19:20 Urine Cocaine Screen Negative ng/mL (Negative) 06/07/24 19:20 U Marijuana (THC) Screen Negative ng/mL (Negative) 06/07/24 19:20 Ethyl Alcohol < 10 mg/dL (0-10) 06/07/24 18:00 All radiology interpretation(s) finalized by discharge Discharge Plan Discharge Patient Disposition: Admitted As Inpatient Admit Provider: Federico Rowe Clinical Impression: Acute metabolic encephalopathy, Chronic anticoagulation, Cirrhosis, Congestive heart failure, Chronic kidney disease Condition: Stable Coding Level of Care Code ED Straight Cutter for Alisha Conti
--- NOTE | 2024-06-07 20:26 | P.HP_ITS ---
Providers/Chief Complaint 2 Primary Care Provider: Teo Fields MD Chief Complaint: stroke alert History of Present Illness Abhay Varghese is a 73 year old male with past medical history significant for decompensated liver cirrhosis with recurrent ascites, congestive heart failure, chronic kidney disease, aortic valve replacement, ischemic cardiomyopathy status post ICD placement, prior stroke x 2, hypertension, atrial fibrillation on apixaban, coronary artery disease with history of CABG, and bilateral carotid artery stenosis with history of left ICA stenting who presents to the emergency department with altered mental status. Upon assessment, patient is encephalopathic. He is unable to provide pertinent HPI. His spouse is bedside and supportive. She provides collateral information. She states he was in his usual state of health until today. She states he was in his usual state of health this morning throughout the course of the day. He made dinner around 4 PM and was in his usual state of health at that time. Shortly after then she noticed he became altered. He was confused since that time. Patient is encephalopathic on exam. He is awake and will respond to some questions with occasionally comprehensible words. He seems to deny any pain, fevers, chills, nausea or emesis. Denies any abdominal pains. Denies any alleviating or aggravating factors. Patient has a history of decompensated liver cirrhosis with recurrent ascites. He is required 3 paracentesis this. His last paracentesis was yesterday. Spouse denies history of known hepatic encephalopathy. Spouse notes a prolonged hospitalization in April at [place]. He was in the hospital for several weeks following a paracentesis that was performed without postprocedural albumin resulting in renal failure. His baseline creatinine is in the mid twos per spouse. Review of Systems 2 Narrative: A complete review of systems was attempted to be obtained but could not be due to patient's encephalopathy and inability to provide confident responses. Medications/Allergies Home Medications Medication Instructions Recorded Confirmed Last Taken Type colchicine 0.6 mg tablet (Colcrys) See Rx Instructions PO ONCE #3 tabs 08/04/21 04/11/24 12/17/21 Rx metformin 1,000 mg tablet 1,000 mg PO BID #180 tabs 10/19/21 04/11/24 12/17/21 Rx tadalafil 20 mg tablet 20 mg PO DAILY PRN sexual activity 12/28/21 04/11/24 Unknown Rx #30 tabs allopurinol 100 mg tablet 100 mg PO DAILY #90 tabs 08/02/22 04/11/24 Unknown Rx duloxetine 60 mg capsule,delayed 60 mg PO DAILY #90 caps 08/02/22 04/11/24 Unknown Rx release tramadol 37.5 mg-acetaminophen 325 1 tab PO BID PRN Pain #60 tabs 08/02/22 04/11/24 Unknown Rx mg tablet sacubitril 49 mg-valsartan 51 mg 1 tab PO BID #60 tabs 01/10/24 04/11/24 Unknown Rx tablet (Entresto) pantoprazole 40 mg tablet,delayed 40 mg PO DAILY 04/11/24 04/11/24 Unknown History release torsemide 20 mg tablet 40 mg (2 x 20 mg) PO DAILY #180 04/11/24 Unknown Rx tabs apixaban 5 mg tablet (Eliquis) See Rx Instructions .Route 05/13/24 Unknown Rx .COMPLEX #180 tabs Allergies Allergy/AdvReac Type Severity Reaction Status Date / Time No Known Allergies Allergy Verified 04/11/24 13:50 PFSH Acute 2 PFSH: Medical History (Updated 06/07/24 @ 20:53 by Federico Rowe MD) CHF exacerbation Ascites Liver cirrhosis Anticoagulation adequate with anticoagulant therapy Leg pain, right Atherosclerotic heart disease of [place] coronary artery without angina pectoris Gout Carotid artery stenosis with cerebral infarction AV malformation of gastrointestinal tract Dyslipidemia Type 2 diabetes mellitus A1c 6.30 March 2020 Ischemic cardiomyopathy Diabetes Hypertension ICD (implantable cardioverter-defibrillator) in place possibly St Ho device Atrial fibrillation CHF (congestive heart failure) EF ~30% CAD (coronary artery disease) Endocarditis CVA (cerebral vascular accident) TIA (transient ischemic attack) Bilateral carotid artery stenosis Patient had a stenting of the left ICA in April 2020 Surgical History 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 Hx of CABG 1998, 5V Hx of aortic valve replacement bioprosthetic, 2012 H/O carotid endarterectomy Family History Father Bleeding disorder Clotting disorder Diabetes CAD (coronary artery disease) Chronic kidney disease (CKD) Lung disease Stroke Other Family history of premature coronary artery disease Hyperlipidemia Hypertension Denies family history of Dementia Suicide Anesthesia complication Cancer Social History Smoking and tobacco/nicotine status: former use of tobacco/nicotine Alcohol intake: current Alcohol intake frequency: holidays/special occasions only Substance/Drug Use: former Date of last use: tried everything in the 60s Housing: House Vitals/I&O/Wt Last Vital Signs Temp 99 F 06/07/24 19:05 Pulse 71 06/07/24 20:20 Resp 18 06/07/24 20:20 BP 124/71 06/07/24 20:20 Pulse Ox 95 06/07/24 20:20 Weight last 48 hrs Weight 119.295 kg Physical Exam 2 Narrative: General: Patient is awake. Encephalopathic. Head: Normocephalic. Atraumatic. Neck: No JVD. Cardiovascular: RRR. No gallops. No murmurs. No peripheral edema. Lungs: Breath sounds are slightly diminished at bilateral bases. No use of accessory muscles, no crackles or wheezes. Skin: No jaundice. No rashes. Abdomen: Normal bowel sounds, abdomen mildly distended. No tenderness to palpation in his abdomen. Genito Urinary: Genital exam not performed since complaints not related. Rectal: Rectal exam not performed since no symptoms indicated blood loss. Extremities: No cyanosis or clubbing. 2+ pitting edema bilateral lower extremities. Musculoskeletal: No erythematous joints. Neurological: Moves all 4 extremities. Occasional spasm or clonus in his extremities. Global confusion. He does not follow most commands which limits a full neurological assessment. He is not oriented to place, time, or situation. Data 06/07/24 18:00 06/07/24 18:00 Micro: Microbiology 06/07/24 19:23 Blood Culture - Preliminary Blood SPECIMEN COLLECTED 06/07/24 19:20 Blood Culture - Preliminary Blood SPECIMEN COLLECTED A&P Assessment and plan (1) Altered mental status: Patient presents with altered mental status with global confusion and global weakness Broad differential No obvious source of infection, continue to monitor for evidence of infection Cultures have been obtained Hepatic encephalopathy within differential despite ammonia 40 Begin treatment of HE with lactulose Head CT negative for acute stroke No focal neurological deficits on exam, obtain brain MRI evaluate for stroke Check urinary drug screen for possible intoxication Neurochecks Avoid sedating medications Supportive care Recent hospitalization at [facility], obtain records (2) Liver cirrhosis: History of decompensated liver cirrhosis with recurrent ascites status post paracentesis x 3 No abdominal tenderness to palpation or abdominal complaints to suggest SBP Given confusion, will proceed with treatment with ceftriaxone (3) Atrial fibrillation: History of paroxysmal atrial fibrillation on apixaban Patient is on chronic DOAC, he is not a candidate for TNKase Qualifiers: Atrial fibrillation type: permanent Qualified Code(s): I48.21 - Permanent atrial fibrillation (4) Congestive heart failure: Chronic heart failure with reduced ejection fraction There is 2+ pitting edema bilateral lower extremities, spouse reports this is an improvement since his recent hospitalization Continue home torsemide Continue home CHF medications (5) CAD (coronary artery disease): History of CABG Qualifiers: Coronary Disease-Associated Artery/Lesion type: [place] artery [place] vs. transplanted heart: [place] heart Associated angina: without angina Qualified Code(s): I25.10 - Atherosclerotic heart disease of [place] coronary artery without angina pectoris (6) Ischemic cardiomyopathy: History of ICD placement Plan DVT prophylaxis: Apixaban Attestations 2 Medical Necessity Statement*: Patient presents with altered mental status with broad differential which patient's will be admitted observation for further workup, MRI imaging, lactulose dosing, serial neuroexams, and supportive care with expected hospitalization not to cross 2 midnights. Coding Level of Care Code Acute Code for Chg Fwd Diagnoses Altered mental status R41.82 Liver cirrhosis K74.60 Permanent atrial fibrillation I48.21 Atrial fibrillation type: permanent Congestive heart failure I50.9 Coronary artery disease involving [place] coronary artery of [place] heart without angina pectoris I25.10 Coronary Disease-Associated Artery/Lesion type: [place] artery [place] vs. transplanted heart: [place] heart Associated angina: without angina Ischemic cardiomyopathy I25.5
[2024-06-07 20:31] LABS: Erythrocyte Sedimentation Rate 17 mm/hr (0-10)
[2024-06-07 20:33] LABS: Lactic Sepsis W/Reflex 3.7 mmol/L (0.5-2.2)
[2024-06-07 20:40] LABS: Procalcitonin 0.17 ng/mL (0-0.5)
[2024-06-07 20:48] LABS: Blood Gas Allen Test Pos; Blood Gas Operator Identificat CL; Blood Gas Sample Site Radial, right; Potassium Level - ABG 4.9 mmol/L (3.5-5.0)
[2024-06-07 20:51] LABS: ABG PCO2 36.3 mmHg (35-45); ABG PH Result 7.46 (7.35-7.45); Alveolar-Arterial Oxygen Gradi 9.2 mmHg (5-10); Arterial Blood Gas Hematocrit 32.9 % (42-52); Carboxyhemoglobin 1.7 %THgb (0.4-20.1); HGB O2 Sat 63.1 % (95-100); Ionized Calcium Level - ABG 1.1 mmol/L (1.1-1.4); Methemoglobin 1.1 % (0.4-1.5); Total Hemoglobin 10.7 g/dL (14-18)
[2024-06-07 20:51] LABS: Amphetamines Screen Urine Negative (Negative); Barbiturates Screen Urine Negative (Negative); Benzodiazepines Screen Urine Negative (Negative); Cocaine Screen Urine Negative (Negative); Opiate Screen Urine Negative (Negative); PCP Screen Urine Negative (Negative); THC Screen Urine Negative (Negative)
[2024-06-07 20:52] LABS: Alcohol Level < 10 mg/dL (0-10)
[2024-06-07 20:53] LABS: Blood Gas Sample Type Arterial
[2024-06-07 20:54] LABS: Oxygen Saturation ABG 63.7; PO2 ABG 33.2 mmHg (80.0-100.0)
[2024-06-07 20:55] LABS: HCO3 ABG 25.8 mmol/L (22-26)
--- NOTE | 2024-06-07 21:08 | PC.NURSE ---
Report was called by Kim MCKINNEY to [facility] ROSA on Med-Surg; all questions and concerns were addressed at time of report.
--- NOTE | 2024-06-07 21:10 | PC.NURSE ---
Patient transferred to [facility]-surg with all paperwork and belongings, along with .
[2024-06-07] MEDS: cefTRIAXone 1,000 mg SDV 1000 MG IVP (21:55)
[2024-06-07] MEDS: lactulose oral liq 20 gm/30 mL UDC 30 GM PO (21:55)
[2024-06-07] MEDS: apixaban 5 mg Tablet PO (21:55)
[2024-06-07 22:05] LABS: Reflex Lactate Order REFLEX LACTIC ORDERD
--- OUTSIDE RECORDS SUMMARY | 2024-06-07 23:54 | XMS_ITS ---
Author Name Unknown Organization [facility] Address [address] [place] [address] Care Team Providers Care Institutional Commodity Analyst Name Role Phone Brigido Fields Primary Care Provider Gus Sepulveda [phone] TANIA BOWER Unavailable Unavailable REASON FOR VISIT PA DOS 06/12/2024 to 07/17/2024 Encounters Encounter Location Date Provider Diagnosis [facility] [place] [place] [address] 06/06/2024 Gus Sepulveda Plan Of Treatment Next Appt Details Provider Name:Solange bush, 06/12/2024 09:15:00 AM, [address], [place], [address], Provider Name:Gus Sepulveda , 06/12/2024 01:00:00 PM, [address], [place], [address], Provider Name:Hilda troncoso, 06/12/2024 02:00:00 PM, [address] [place] [address] , [address], [place], [address], Provider Name:Gus Sepulveda , 06/19/2024 01:00:00 PM, [address], [place], [address], Provider Name:Gus Sepulveda , 06/27/2024 01:30:00 PM, [address] [place], [address], Provider Name:Gus Regalado Derick , 07/03/2024 01:00:00 PM, [address], [place], [address], Provider Name:Gus Regalado Derick , 07/10/2024 01:00:00 PM, [address], [place], [address], Provider Name:Gus Regalado Derick , 07/17/2024 01:00:00 PM, [address], [place], [address], Progress Notes * Abhay TRAN RDOB: [birth year] (73 yo M)Acc No.[id number]:06/06/2024 Patient:?Abhay TRAN :1950???Age:73 Y???Sex:Male Address:[address] [place] [id number] * true * Date:? Generated for Michaeli renita/Remi/eTransmitting on:?06/07/2024 11:54 PM CDT
--- OUTSIDE RECORDS SUMMARY | 2024-06-07 23:54 | XMS_ITS ---
Author Name Unknown Organization [facility] Address [address] [place] [address] Care Team Providers Care Milk Pasteurizer Name Role Phone Brigido Fields Primary Care Provider [phone] Gus Sepulveda [phone] TANIA BOWER Unavailable Unavailable REASON FOR VISIT HOSPITAL F/U Encounters Encounter Location Date Provider Diagnosis [facility] [address] [facility] [address] [place] [address] 06/06/2024 Brigido Fields Plan Of Treatment Next Appt Details Provider Name:Solange bush, 06/12/2024 09:15:00 AM, [address], [place], [address], Provider Name:Gus Sepulveda , 06/12/2024 01:00:00 PM, [address], [place], [address], Provider Name:Hilda troncoso, 06/12/2024 02:00:00 PM, [address] [place] [address] Dr, [facility] [address], [place], [address], Provider Name:Gus Sepulveda , 06/19/2024 01:00:00 PM, [address], [place], [address], Provider Name:Gus Sepulveda , 06/27/2024 01:30:00 PM, [address], [place], [address], Provider Name:Gus Sepulveda , 07/03/2024 01:00:00 PM, [address], [place], [address], Provider Name:Gus Sepulveda , 07/10/2024 01:00:00 PM, [address], [place], [address], Provider Name:Gus Jacobr , 07/17/2024 01:00:00 PM, [address], [place], [address], Progress Notes * Abhay TRAN RDOB: [birth year] (73 yo M)Acc No.[id number]:06/06/2024 Patient:?CHELSEA Abhay Radha Provider:?Brigido Fields MD :1950???Age:73 Y???Sex:Male Jevon e:06/06/2024 Address:[address] [place], [place] [id number] Subjective: * Chief Complaints: * ???1. HOSPITAL F/U. * Medical History:? Objective: * Vitals:? Assessment: Plan: * Treatment: * Billing Information: * Visit Code:? * Procedure Codes:? * Electronic signature of Kamran Fields MD on 06/07/2024 at 11:54 PM CDT Sign off status: Pending * Provider:?Brigido Fields MD Jevon e:?06/06/2024 Generated for Miguel maravilla/Remi/eTransmitting on:?06/07/2024 11:54 PM CDT
--- OUTSIDE RECORDS SUMMARY | 2024-06-07 23:55 | XMS_ITS ---
Author Name Unknown Organization [facility] Address [address] [place] [address] Care Team Providers Care Business Account Manager Name Role Phone Brigido Fields Primary Care Provider Gus Sepulveda [phone] TANIA BOWER Unavailable Unavailable REASON FOR VISIT Parcentesis Encounters Encounter Location Date Provider Diagnosis [facility] [address] [place] [address] 06/05/2024 Gus Sepulveda Other ascites R18.8 Assessments Encounter Date Diagnosis (ICD Code) Assessment Notes Treatment Notes Treatment Clinical Notes 06/05/2024 Other ascites (ICD-10 - R18.8) Plan Of Treatment Future Test Test Name Order Date Basic Metabolic Panel (BMP) 80689 2023 Paracentesis 06/12/2024 Paracentesis 06/19/2024 Paracentesis 06/27/2024 Paracentesis 07/03/2024 Paracentesis 07/10/2024 Paracentesis 07/17/2024 Next Appt Details Provider Name:Solange bush, 06/12/2024 09:15:00 AM, [address] [place] [address], [place], [address], Provider Name:Gus Sepulveda , 06/12/2024 01:00:00 PM, [address] [place], [address], Provider Name:Hilda troncoso, 06/12/2024 02:00:00 PM, [address], [place], [address], Provider Name:Gus Sepulveda , 06/19/2024 01:00:00 PM, [address], [place], [address], Provider Name:Gus Sepulveda , 06/27/2024 01:30:00 PM, [address], [place], [address], Provider Name:Gus Sepulveda , 07/03/2024 01:00:00 PM, [address], [place], [address], Provider Name:Gus Sepulveda , 07/10/2024 01:00:00 PM, [address], [place], [address], Provider Name:Gus Sepulveda , 07/17/2024 01:00:00 PM, [address], [place], [address], Progress Notes * Abhay TRAN RDOB: [birth year] (73 yo M)Acc No.[id number]:06/05/2024 Patient:?Abhay TRAN :1950???Age:73 Y???Sex:Male Address:[address] [place] [phone] Subjective: * Chief Complaints: * ???Parcentesis * Medical History:? * Surgical History:? * Hospitalization/Major Diagno stic Procedure:? * Medications:? Objective: * Vitals:? * Physical Examination:? Assessment: * Assessment: 1.?Other ascites - R18.8??? Plan: * Treatment: ?Imaging: Paracentesis (Ordered for 06/12/2024)* Draw BMP lab with paracentes is ?Imaging: Paracentesis (Ordered for 06/19/2024) ?Imaging: Paracentesis (Ordered for 06/27/2024) ?Imaging: Paracentesis (Ordered for 07/03/2024) ?Imaging: Paracentesis (Ordered for 07/10/2024) ?Imaging: Paracentesis (Ordered for 07/17/2024) * Procedure Codes:? * true * Date:? Generated for Miguel maravilla/Remi/Mileysmitting on:?06/07/2024 11:54 PM CDT
--- OUTSIDE RECORDS SUMMARY | 2024-06-07 23:55 | XMS_ITS ---
Author Name Unknown Organization [facility] REACTION[facility] No information ASSESSMENT No information CHIEF COMPLAINT No information Medications Date Medication Dosage Dosageunit Startdate Stopdate Active Dispens e Refills Ndccode Isprescription Srcstatus 04/12 00:00 :00 Allopurinol 100 MG Tablet null null 1 90 Tablet 3 29 724677 905 Taking 04/12 00:00 :00 DULoxetine HCl 60 MG Capsule Delayed Release Particles null null 1 10 3 [id number] 203 P Taking 04/12 00:00 :00 Eliquis 5 MG Tablet null null 1 [id number] 421 Taking 04/12 00:00 :00 Entresto 97-103 MG Tablet null null 1 [id number] 620 Taking 04/12 00:00 :00 Iron (Ferrous Sulfate) 325 (65 Fe) MG Tablet null null 1 52075407 252 Not Taking 04/12 00:00 :00 Levothyroxi ne Sodium 25 MCG Tablet null null 1 90 Tablet 0 56991565 007 Taking 04/12 00:00 :00 metFORMIN HCl ER 500 MG Tablet Extended Release 24 Hour null null 1 360 Tablet 3 25309189 105 Taking 04/12 00:00 :00 Pantoprazol e Sodium 40 MG Tablet Delayed Release 10/13/2023 00:00:00 null 1 90 Tablet 3 22133752 910 P Taking 04/12 00:00 :00 Pseudoephed rine HCl ER 120 MG Tablet Extended Release 12 Hour 10/13/2023 00:00:00 null 1 30 0 82511046 752 P Not Taking 04/12 00:00 :00 Tamsulosin HCl 0.4 MG Capsule null null 1 90 3 21850029 510 P Taking 04/12 00:00 :00 Torsemide 20 MG Tablet null null 1 114704 07 725 Taking 04/12 00:00 :00 traMADol-Ac etaminophen 37.5-32 5 MG Tablet 11/21/2023 00:00:00 00:00:00 0 60 5 85430193 901 P Taking OBJECTIVE DATA No information PHYSICAL EXAMINATION No information TREATMENT PLAN No information PROBLEMS No information RESULTS No information REVIEW OF SYSTEMS No information SUBJECTIVE DATA No information VITAL SIGNS No information
--- OUTSIDE RECORDS SUMMARY | 2024-06-07 23:55 | XMS_ITS | Patient Health Record ---
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 Name Role Phone Brigido Fields Primary Care Provider Gus Sepulveda Unavailable [phone] TANIA SEGUNDO Unavailable Unavailable Allergies No Known Allergies Results Component Value Reference Range Notes CBC w\ Auto Diff [id number] Reviewed date:10/20/2023 11:41:25 AM Interpretation: Performing Lab: Notes/Report: Diagnosis Description: Iron deficiency WBC 6.5 4.5-11.0 X10'3 RBC 3.73 4.50-5.90 X10'6 Hgb 13.9 13.5-17.5 G/DL Hct 42.8 41.0-53.0 % MCV 114.7 80.0-100.0 FL MCH 37.3 27.0-31.0 PG MCHC 32.5 31.0-37.0 G/DL Platelet 228 150-400 X10'3 RDW-SD 68.2 35.0-49.0 FL RDW-CV 16.1 12.2-15.6 % MPV 11.8 9.2-12.0 FL Neutro Auto% 75.2 42.0-75.0 % Lymph Auto% 12.5 21.0-51.0 % [place] Auto% 9.1 1.7-9.3 % Eos Auto% 1.7 .0-6.0 Baso Auto% 1.2 0.0-1.0 Imm Gran% .3 .0-.4 % Neutro Abs 4.86 .80-7.70 Absolute Neutrophil Count 4860 Lymph Abs .81 .10-4.10 [place] Abs .59 .20-1.00 Eos Abs .11 .00-.40 Baso Abs .08 .00-.10 Imm Gran Abs .02 .00-.10 NRBC# .00 .00-.20 NRBC% .00 .00-.20 /100 intact WBC's Comprehensive Metabolic Pane l 43731 Reviewed date:10/27/2023 09:41:49 AM Interpretation: Performing Lab: Notes/Report: Diagnosis Description: Iron deficiency Glucose Serum 147 71-110 MG/DL Testing perfor med at [facility], [address] [place] [address] [place] [address]. CLIA ID#: [id number] BUN 52 7-21 MG/DL Creat 1.89 .57-1.17 MG/DL J-qaghav-l-benzoquinone imine (NAPQI) is a metabolite of acetaminophen, NAPQI concentrations of apparoximately 10 mg/L correlation to toxic levels of acetaminophen demonstrates a greater than or equil to 10% change in results. NAPQI concentrations greater than this may lead to falsely depressed results for patient samples. Use of this assay is not recommended for patients undergoing treatment with phenindione, due to the potential for falsely depressed results. GFR 37.5 Calculation per formed from GFR calculator provided by the National Kidney Foundation. Glomerular Filtration rate(GRF) is the best overall index of kidney function. Normal GFR varies according to age,sex, body size, and declines with age. The National Kidney Foundation recommends using the CKD-EPI Creatinine Equation(2009) to estimate GFR. BUN/Creat Ratio 27.5 12.0-20.0 % Total Protein 7.4 5.8-8.0 G/DL Albumin 4.6 3.2-4.8 G/DL Globulin 2.8 2.3-3.5 G/DL Alb/Glob 1.6 0.8-2.2 Calcium 9.9 8.7-10.4 MG/DL Sodium 139 136-145 MMOL/L Potassium 4.8 3.5-5.1 MMOL/L Chloride 102 98-107 MMOL/L CO2 28.7 20.0-31.0 MMOL/L Anion Gap 13 5-15 Alk Phos 126 46-116 Bili Total 1.4 .3-1.2 MG/DL Use of this ass ay is not recommended for patients undergoing treatment with eltrombopag due to the potential for falsely elevated results. AST/SGOT 19 15-37 UNIT/L ALT/SGPT 14 12-78 UNIT/L Osmo Serum,Calculated 305 280-300 MOSM/KG Hemoglobin A1c 37808 Reviewed date:10/27/2023 09:41:58 AM Interpretation: Performing Lab: Notes/Report: Diagnosis Description: Iron deficiency Hgb A1c 7.2 3.8-6.4 % Interpretation Of Hgb A1c: 4.5-6.2 % nondiabetics. >7.0 % diabetics. EAG 160 Estimated [place] ge Glucose(EAG). % Iron Saturation (Fe & TIBC )--97348,55228 Reviewed date:10/27/2023 09:41:52 AM Interpretation: Performing Lab: Notes/Report: Diagnosis Description: Iron deficiency Iron 98 65-175 MCG/DL Per Iron assay instruction for Use(IFU), patients treated with metal-binding drugs (e.g.deferoxamine) may have depressed iron values as chelated iron may not properly react in the iron assay. Testing was performed with this assay method. TIBC 425 250-450 NG/DL % Iron Saturation 23 20-50 % CBC w\ Auto Diff 28188 Reviewed date:03/25/2024 10:40:37 AM Interpretation: Performing Lab: Notes/Report: WBC 4.1 4.5-11.0 X10'3 RBC 2.46 4.50-5.90 X10'6 Hgb 9.3 13.5-17.5 G/DL Hct 28.3 41.0-53.0 % MCV 115.0 80.0-100.0 FL MCH 37.8 27.0-31.0 PG MCHC 32.9 31.0-37.0 G/DL Platelet 253 150-400 X10'3 RDW-SD 68.5 35.0-49.0 FL RDW-CV 16.0 12.2-15.6 % MPV 11.2 9.2-12.0 FL Neutro Auto% 75.7 42.0-75.0 % Lymph Auto% 9.0 21.0-51.0 % [place] Auto% 10.9 1.7-9.3 % Eos Auto% 2.7 .0-6.0 Baso Auto% 1.2 0.0-1.0 Imm Gran% .5 .0-.4 % Neutro Abs 3.11 .80-7.70 Absolute Neutrophil Count 3110 Lymph Abs .37 .10-4.10 [place] Abs .45 .20-1.00 Eos Abs .11 .00-.40 Baso Abs .05 .00-.10 Imm Gran Abs .02 .00-.10 NRBC# .00 .00-.20 NRBC% .00 .00-.20 /100 intact WBC's Comprehensive Metabolic Pane l 33594 Reviewed date:03/25/2024 10:40:45 AM Interpretation: Performing Lab: Notes/Report: Glucose Serum 132 71-110 MG/DL Testing perfor med at [facility], [address] [place] [address] Dr. Vasu Landers, [place] [address]. CLIA ID#: [id number] BUN 63 7-21 MG/DL Creat 2.07 .57-1.17 MG/DL X-fvynxo-w-benzoquinone imine (NAPQI) is a metabolite of acetaminophen, NAPQI concentrations of apparoximately 10 mg/L correlation to toxic levels of acetaminophen demonstrates a greater than or equil to 10% change in results. NAPQI concentrations greater than this may lead to falsely depressed results for patient samples. Use of this assay is not recommended for patients undergoing treatment with phenindione, due to the potential for falsely depressed results. GFR 33.6 Calculation per formed from GFR calculator provided by the National Kidney Foundation. Glomerular Filtration rate(GRF) is the best overall index of kidney function. Normal GFR varies according to age,sex, body size, and declines with age. The National Kidney Foundation recommends using the CKD-EPI Creatinine Equation(2020) to estimate GFR. BUN/Creat Ratio 30.4 12.0-20.0 % Total Protein 7.3 5.8-8.0 G/DL Albumin 4.4 3.2-4.8 G/DL Globulin 2.9 2.3-3.5 G/DL Alb/Glob 1.5 0.8-2.2 Calcium 9.7 8.7-10.4 MG/DL Sodium 137 136-145 MMOL/L Potassium 4.6 3.5-5.1 MMOL/L Chloride 101 98-107 MMOL/L CO2 27.0 20.0-31.0 MMOL/L Anion Gap 14 5-15 Alk Phos 183 46-116 Bili Total 1.0 .3-1.2 MG/DL Use of this ass ay is not recommended for patients undergoing treatment with eltrombopag due to the potential for falsely elevated results. AST/SGOT 17 15-37 UNIT/L ALT/SGPT <7 12-78 UNIT/L Osmo Serum,Calculated 304 280-300 MOSM/KG Folate 89076 Reviewed date:03/25/2024 10:40:11 AM Interpretation: Performing Lab: Notes/Report: Folate 13.77 5.38-24.00 ng/mL Reference R rand: 5.38->24.00. Patient dosage up to or equal to 50 ng/ml of Biotin (vitamin B7) can potentially increase or decrease results of folate assay with a less than 10% bias. Concentrations of Biotin greater than 50ng/ml can potentially increase or decrease results of Folate assay with a greater than 10% bias. Sedimentation Rate 98250 Reviewed date:03/25/2024 10:40:20 AM Interpretation: Performing Lab: Notes/Report: Sed Rate 45 0-20 MM/HR Thyroid Stimulating Hormone (TSH) 30454 Reviewed date:03/25/2024 10:40:03 AM Interpretation: Performing Lab: Notes/Report: TSH 5.039 .358-3.740 MlU/ML Vitamin B12 (B) 22264 Reviewed date:03/26/2024 11:49:45 AM Interpretation: Performing Lab: Notes/Report: ZtmhuukN27 655 211-911 pg/mL % Iron Saturation (Fe & TIBC )--32659,93326 Reviewed date:03/25/2024 10:40:08 AM Interpretation: Performing Lab: Notes/Report: Iron 74 65-175 MCG/DL Per Iron assay instruction for Use(IFU), patients treated with metal-binding drugs (e.g.deferoxamine) may have depressed iron values as chelated iron may not properly react in the iron assay. Testing was performed with this assay method. TIBC 351 250-450 NG/DL % Iron Saturation 21 20-50 % US Abdomen Limited-93090 Reviewed date:04/18/2024 02:06:08 PM Interpretation: Performing Lab: Notes/Report: sll=[id number]&org=iSite zis=[id number] 5&org=iSite Schedule Confirmation Reviewed date:05/20/2024 07:34:13 AM Interpretation: Performing Lab: Notes/Report: Heart Cath Lt poss PTCA Schedule Confirmation Reviewed date:05/20/2024 07:34:13 AM Interpretation: Performing Lab: Notes/Report: Heart Cath Lt poss PTCA zzzHeart Cath Lt poss PTCA Reviewed date:05/20/2024 07:34:13 AM Interpretation: Performing Lab: Notes/Report: See Below For Report This report was dictated outside of the [employer] [place] system. 4428 @ 1802 Read See Below For Report zzzHeart Cath Lt poss PTCA Reviewed date:05/20/2024 07:34:13 AM Interpretation: Performing Lab: Notes/Report: zxg=[id number]&org=iSite baw=[id number] 4&org=iSite Scan--40808 Reviewed date:05/20/2024 07:34:13 AM Interpretation: Performing Lab: Notes/Report: Scan ordered by Datical Expert Rules system. 4428 @ 1802 4428 PLT Appear Adequate Elliptocytes Few Hypochrom Slight Macrocytosis Marked Polychrom Few Target Cell Few Echinocyte(Newton Cell) Frequent WBC Auto Diff--39449 Reviewed date:05/20/2024 07:34:13 AM Interpretation: Performing Lab: Notes/Report: Added by Datical Rules 4428 @ 1802 4428 Neutro Auto% 74.9 40.0-70.0 % Lymph Auto% 6.5 22.0-44.0 % [place] Auto% 12.3 3.0-7.0 % Eos Auto% 4.5 2.0-4.0 % Baso Auto% 1.0 0.0-1.0 % NRBC% .00 .00-.20 /100 intact WBC's Neutro Abs 3.70 .80-7.70 Absolute Neutrophil Count 3700 Lymph Abs .32 .10-4.10 [place] Abs .61 .20-1.00 Eos Abs .22 .00-.40 Baso Abs .05 .00-.20 NRBC# .00 .00-.20 Imm Gran Abs .04 .00-.10 Imm Gran% .8 .0-.4 % CBC Reflex Man Diff 04809, 8 5007 Reviewed date:05/20/2024 07:34:13 AM Interpretation: Performing Lab: Notes/Report: 4428 @ 1802 4428 WBC 4.9 4.5-11.0 X10'3 RBC 2.49 4.50-5.90 X10'6 Hgb 8.5 13.5-17.5 G/DL Hct 27.3 41.0-53.0 % MCV 109.6 80.0-100.0 FL MCH 34.1 27.0-31.0 PG MCHC 31.1 31.0-37.0 G/DL Platelet 228 150-400 X10'3 RDW-SD 72.5 35.0-49.0 FL RDW-CV 18.2 12.2-15.6 % MPV 10.1 9.2-12.0 FL Review Morph/Scan Partial Thromboplastin Time 77788 Reviewed date:05/20/2024 07:34:13 AM Interpretation: Performing Lab: Notes/Report: 4428 @ 1802 4428 PTT 37.9 22.6-31.8 SEC Critical Value Starting at > 100. Therapeutic Range: 60-100. Basic Metabolic Panel (BMP) 03492 Reviewed date:05/20/2024 07:34:13 AM Interpretation: Performing Lab: Notes/Report: 4428 @ 1802 4428 Sodium 136 136-145 MMOL/L Potassium 4.0 3.5-5.1 MMOL/L Chloride 107 98-107 MMOL/L CO2 20.4 20.0-31.0 MMOL/L Glucose Serum 116 71-110 MG/DL Testing perfor med at [address] Vasu [place]ers, [place] [address]. CLIA ID#: [id number] BUN 53 7-21 MG/DL Creat 2.70 .57-1.17 MG/DL M-tzhdof-a-benzoquinone imine (NAPQI) is a metabolite of acetaminophen, NAPQI concentrations of apparoximately 10 mg/L correlation to toxic levels of acetaminophen demonstrates a greater than or equil to 10% change in results. NAPQI concentrations greater than this may lead to falsely depressed results for patient samples. Use of this assay is not recommended for patients undergoing treatment with phenindione, due to the potential for falsely depressed results. GFR 24.3 Calculation per formed from GFR calculator provided by the National Kidney Foundation. Glomerular Filtration rate(GRF) is the best overall index of kidney function. Normal GFR varies according to age,sex, body size, and declines with age. The National Kidney Foundation recommends using the CKD-EPI Creatinine Equation(2020) to estimate GFR. Anion Gap 13 5-15 BUN/Creat Ratio 19.6 12.0-20.0 % Calcium 9.1 8.7-10.4 MG/DL Osmo Serum,Calculated 297 280-300 MOSM/KG Prothrombin Time 22596 Reviewed date:05/20/2024 07:34:13 AM Interpretation: Performing Lab: Notes/Report: 4428 @ 1802 4428 ProTime 13.6 9.1-11.9 SEC Normal Range: 9 .1-11.9 INR 1.31 .90-1.20 Therapaeutic Range for heart valve replacement: 2.5-3.50 Therapeutic Range: 2.0-3.0 US Abdomen Limited-05584 Reviewed date:04/18/2024 02:05:11 PM Interpretation: Performing Lab: Notes/Report: See Below For Report US Abdomen Limited Read See Below For Report Protein Body Fluid Reviewed date:04/18/2024 02:05:55 PM Interpretation: Performing Lab: Notes/Report: Protein BF 3.3 Body Fluid Peritoneal fl The reference interval(s) and other method performance specifications are unavailable for this body fluid. Comparison of this result with the concentration in the blood, serum, or plasma is recommended. For LEEANN Drain samples, the reference interval(s) and other method performance specifications have not been established for this body fluid. The test result must be integrated into the clinical context for interpretation. Glucose Body Fluid--41760 Reviewed date:04/18/2024 02:05:58 PM Interpretation: Performing Lab: Notes/Report: Body Fluid Peritoneal fl The reference interval(s) and other method performance specifications are unavailable for this body fluid. Comparison of this result with the concentration in the blood, serum, or plasma is recommended. For LEEANN Drain samples, the reference interval(s) and other method performance specifications have not been established for this body fluid. The test result must be integrated into the clinical context for interpretation. Gluc BF 109 cytology--NO CPT Reviewed date:04/18/2024 02:05:19 PM Interpretation: Performing Lab: Notes/Report: Cytology Sent to Pathologist This mateus t was sent to Pathologist at [facility]. Gram Stain 30456 Reviewed date:04/30/2024 08:50:07 AM Interpretation: Performing Lab: Notes/Report: Gram Stain JANICE Elias Gram Stain t: Gram Stain Gram Stain Accessio [id number] Gram Stain n: Gram Stain Microbiology Gram Stain PROCEDURE: Gram Stain [] Gram Stain SOURCE: Body Fl BODY SITE: Gram Stain COLLECTED DATE/TIME: 04/17/2024 18:26 CDT RECEIVED DATE/TIME: 04/17/2024 20:01 CDT Gram Stain START DATE/TIME: 04/17/2024 20:01 CDT FREE TEXT SOURCE: Gram Stain FINAL REPORT Gram Stain Final Report [] Gram Stain Verified Date/Time: 04/17/2024 22:44 CDT Gram Stain No organisms seen. Gram Stain STAINS/PREPARATI ONS Gram Stain GS [] Gram Stain Verified Date/Time: 04/22/2024 07:11 CDT Gram Stain No organisms seen. Paracentesis Reviewed date:04/22/2024 01:39:31 PM Interpretation: Performing Lab: Notes/Report: PSA-Total & Free 74424, 8415 4 Reviewed date:11/29/2023 04:26:13 PM Interpretation: Performing Lab: Notes/Report: Diagnosis Description: Other difficulties with micturition Total PSA 0.6 0.0-4.0 ng/mL with a digital rectal exam in individuals with a prostate age 50 years and older. The [place] PSA is also indicated for the serial PSA concentrations can also be elevated in benign prostatic suggest the presence of prostate cancer until biopsy is performed. The [place]iffanie PSA electrochemiluminescent immunoassay is used. Results measurement of PSA to aid in the prognosis and management of obtained with different test methods or kits cannot be used generally not elevated in healthy individuals or individuals with INTERPRETIVE INFORMATION: Prostate Specific Antigen hyperplasia or inflammatory conditions of the prostate. PSA is aid in the detection of prostate cancer when used in conjunction interchangeably. The [place] PSA method is approved for use as an nonprostatic carcinoma. prostate cancer patients. Elevated PSA concentrations can only Free PSA 0.1 % Free PSA 17 %fPSA 50-59 60-69 70 or older [facility] uses the Tiffanie Free PSA [place] [address] method in conjunction with the Tiffanie PSA electrochemiluminescent Envelope Fold Operator: Mendez Irene MD, PhD PSA between 3 and 10 ng/mL and negative digital rectal examination cancer in individual patients. Percentage Performed By: [facility] Laboratories 19 - 25% 18% 24% 30% obtained with different assay methods should not be used CLIA Number: [id number] immunoassay method to determine the free PSA percentage. Values cancer. years is: In patients with total PSA concentrations of 4-10 ng/mL, the findings. Prostatic biopsy is required for the diagnosis of distinguishing prostate cancer from benign prostatic conditions in interchangeably. The free PSA percentage is an aid in Other factors may help determine the actual risk of prostate 0 - 10% 49% 58% 65% 11 - 18% 27% 34% 41% INTERPRETIVE INFORMATION: Prostate Specific Antigen, Free probability of finding prostate cancer on needle biopsy by age in Greater than 25% 9% 12% 16% individuals with a prostate age 50 years and older with a total [address] Reason For Referral Reason Profound macrocytic anemia with normal b12 and folate. Mildly elevated TSH. Diagnosis 1 Macrocytic anemia (D 53.9) Referral Organization [facility] Referring Provider First Name Jacob villanueva Referring Provider Last Name Donnie Referring Provider Speciality Internal M edicine Referred Organization [facility] Referred Provider Tania Segundo Referred Address [address] [place] [address] [facility],[address], Referred Provider Specialty Hematology/O ncology General Notes Lilia Ferguson 024 02:15:09 PM >THE CLINIC IS REQUESTING THE LABS SO I HAVE FAXED THEM OVER, Farzana Lucio 03/12/2024 04:42:52 PM >faxed, Lilia Ferguson 03/21/2024 02:05:26 PM >PROGRESS NOTES IN REFERRA FILE Referral Priority Routine Medications Medication SIG (Take, Route, Frequency, Duration) Notes Start Date End Date Status Eliquis 5 MG 1 tablet Orally Twic e a day Active Iron (Ferrous Sulfate) 325 (65 Fe) MG 1 tablet Orally Three times a Week Unknown Tamsulosin HCl 0.4 MG 1 capsule Orally O nce a day in the evening for 90 days Active Pantoprazole Sodium 40 MG 1 tablet Orall y Once a day for 90 days 10/13/2023 Active Allopurinol 100 MG TAKE 1 TABLET BY AR TH EVERY DAY for 90 Active Levothyroxine Sodium 25 MCG TAKE 1 TABLE T BY MOUTH DAILY IN THE MORNING ON AN EMPTY STOMACH for 90 Active Senna Laxative Activ e DULoxetine HCl 60 MG 1 capsule Orally On ce a day for 10 days Active traMADol-Acetaminophen 37.5-325 MG 1tablet as needed for pain Orally twice daily for 60 days 05/28/2024 05/17/2025 Active Isosorbide Dinitrate 10 MG 1 tablet Orally tid Active hydrALAZINE HCl 10 MG 1 tablet with food Orally bid Active Torsemide 20 MG 3 tablets as directe d Orally daily Unknown Farxiga 10 MG 1 tablet Orally Once a day Active Entresto 97-103 MG 1/2 tablet Orally Twice a day Unknown Bumetanide 1 MG 2 tablet Orally bid Active metFORMIN HCl ER 500 MG TAKE 4 TABLETS B Y MOUTH EVERY DAY for 90 Unknown Aspir-81 Active Pseudoephedrine HCl ER 120 MG 1 tablet as needed Orally QAM for 30 days 10/13/2023 Unknown Social History Tobacco Use: Social History Observation Description Date Details (start date - stop date) Former Smoker NA - NA xTobacco Use/Smoking Question Answer Notes Are you a former smoker How long has it been since you last smoked? > 10 years Alcohol Screen (Audit-C) Question Answer Notes Did you have a drink contain ing alcohol in the past year? Yes How often did you have a dri nk containing alcohol in the past year? Monthly or less (1 point) How many drinks did you have on a typical day when you were drinking in the past year? 1 or 2 drinks (0 point) Points 1 Interpretation Negative PHQ-9 Question Answer Notes Little interest or pleasure in doing things Hailee ral days Feeling down, depressed, or hopeless Several day s Trouble falling or staying asleep, or sleeping t oo much Not at all Feeling tired or having little energy Nearly noa ry day Poor appetite or overeating Not at all Feeling bad about yourself, or that you are a failure, or have let yourself or your family down Not at all Trouble concentrating on thi ngs, such as reading the newspaper or watching television Several days Moving or speaking so slowly that other people could have noticed. Or the opposite ? being so fidgety or restless that you have been moving around a lot more than usual More than half the days Tobacco Control (Standard) Question Answer Notes Tobacco use: Former smoker AUDIT-C (Standard) Question Answer Notes Did you have a drink containing alcohol in the p ast year? No Points 0 Interpretation Negative Problems Problem Type SNOMED Code ICD Code Onset Dates Problem Status W/U Status Risk Notes Problem Type II diabetes mellitus without complication (274557366) Type 2 diabetes mellitus without complications (E11.9) Active confirmed Problem 22164714 Iron deficiency (E61.1) Active confirmed Problem 777787650 Major depressive disorder, recurrent, moderate (F33.1) Active confirmed Problem Tricuspid valve disorder, non-rheumatic (865116020) Nonrheumatic tricuspid (valve) insufficiency (I36.1) Active confirmed Problem Heart failure (14013932) Heart failure, unspecified (I50.9) Active confirmed Problem MIRANDA - Nonalcoholic steatohepatitis (856066935) Nonalcoholic steatohepatitis (MIRANDA) (K75.81) Active confirmed Problem 674179075 Other ascites (R18.8) Active confirmed Problem Right heart failure (766363556) Right heart failure, unspecified (I50.810) Active confirmed Problem 682337628 Type 2 diabetes mellitus without complication, without long-term current use of insulin (E11.9) Active confirmed Problem 95334747 Chronic fatigue (R53.82) Active confirmed Problem 98506093 Macrocytic anemi a (D53.9) Active confirmed Problem Chronic kidney disease (267173322) Chronic kidney disease (N18.9) Active confirmed Problem Tricuspid regurgitation (190030261) Tricuspid regurgitation (I07.1) Active confirmed Problem 80360128 Recurrent major depressive disorder, in full remission (F33.42) Active confirmed Problem 657139398 Acquired hypothyroidism (E03.9) Active confirmed Problem Atherosclerotic heart disease of [place] coronary artery without angina pectoris (134207480651081) Arteriosclerosis of coronary artery (I25.10) Active confirmed Problem Cardiomyopathy (49606084) Cardiomyopathy (I42.9) Active confirmed Problem 859105044 Morbid obesity (E66.01) Active confirmed Problem 473494415016753 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, unspecified site (M1A.00X0) Active confirmed Problem 388736710 Bilateral chroni c serous otitis media (H65.23) Active confirmed Problem 48292395 Decreased urine stream (R39.198) Active confirmed Problem History of heart valve repair with prosthesis (332292278215668) Aortic valve replaced (Z95.2) Active confirmed Problem Peripheral circulatory disorder associated with diabetes mellitus (926899372) Diabetes mellitus with cardiac complication (E11.59) Active confirmed Problem Automatic implantable cardiac defibrillator in situ (898068894) Cardiac defibrillator in place (Z95.810) Active confirmed Problem Acute systolic heart failure (755802530) Acute systolic congestive heart failure (I50.21) Active confirmed Problem Paroxysmal tachycardia (05450064) Tachycardia, paroxysmal (I47.9) Active confirmed Problem History of heart valve repair with prosthesis (470046357089401) H/O prosthetic heart valve (Z95.2) Active confirmed Problem History of heart valve recipient (025420184) 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) Active confirmed Problem Dilated cardiomyopathy (346288861) Cardiomyopathy, dilated (I42.0) Active confirmed Problem Mitral valve disorder (34729275) Acute mitral insufficiency (I34.0) Active confirmed Vital Signs Heart Rate 51 /min 06/04/2024 Temperature 97.2 degrees Fahrenheit 06/04/2024 Blood pressure diastolic 70 mm Hg 06/04/2024 Oximetry 100 % 06/04/2024 Height-cm 177.8 cm 06/04/2024 Weight-kg 126.19 kg 06/04/2024 Height 70 in 06/04/2024 Blood pressure systolic 130 mm Hg 06/04/2024 Weight 278.2 lbs 06/04/2024 BMI 39.91 kg/m2 06/04/2024 Encounters Encounter Location Date Provider Diagnosis [facility] [address] [place] [address] 06/05/2024 [facility] [address] [place] [address] 10/13/2023 Brigido Fields Type 2 diabetes mellitus without complication, without long-term current use of insulin E11.9 ; Idiopathic chronic gout without tophus, unspecified site M1A.00X0 ; Iron deficiency E61.1 and Bilateral chronic serous otitis media H65.23 [facility] [address] [place] [id number] 11/21/2023 Brigido Fields Decreased urine stream R39.198 ; Type 2 diabetes mellitus without complication, without long-term current use of insulin E11.9 ; Iron deficiency E61.1 ; Recurrent major depressive disorder, in full remission F33.42 ; Morbid obesity E66.01 and Major depressive disorder, recurrent, moderate F33.1 [facility] [address] [place] [phone] 01/29/2024 Brigido Fields Bronchitis J40 [facility] [address] [place] [phone] 03/04/2024 Brigido Fields Chronic fatigue R53.82 [facility] [address] [place] [phone] 03/11/2024 Brigido Fields Macrocytic anemia D53.9 and Acquired hypothyroidism E03.9 [facility] [address] [address] 04/12/2024 Brigido Fields Other ascites R18.8 [facility] [address] [place] [address] 04/17/2024 Brigido Fields Other ascites R18.8 [facility] [address] [place] [address] 06/04/2024 Gus Sepulveda Other ascites R18.8 ; Tricuspid regurgitation I07.1 ; Nonalcoholic steatohepatitis (MIRANDA) K75.81 and Diabetes mellitus with cardiac complication E11.59 [facility] [address] [place] [phone] 09/26/2023 Brigido Fields [facility] [address] [place] [phone] 10/18/2023 Brigido Fields [facility] [address] [place] [phone] 10/26/2023 Brigido Fields [facility] [address] [place] [phone] 11/28/2023 [facility] [address] [place] [address] 01/29/2024 Brigido Fields Bronchitis J40 [facility] [address] [place] [address] 02/05/2024 [facility] [address] [place] [address] 03/07/2024 [facility] Fields [facility] [address] [place] [address] 04/30/2024 Gus Sepulveda [facility] [address] [place] [address] 05/22/2024 Brigido Fields [facility] [address] [place] [address] 06/03/2024 Brigido Fields [facility] [address] [place] [address] 06/04/2024 Gus Sepulveda [facility] [address] [place] [address] 06/05/2024 Gus Sepulveda Other ascites R18.8 [facility] [address] [place] [address] 06/06/2024 Gus Sepulveda Assessments Encounter Date Diagnosis (ICD Code) Assessment Notes Treat ment Notes Treatment Clinical Notes 11/21/2023 Decreased urine stream (ICD-10 - R39.198) 01/29/2024 Bronchitis (ICD-10 - J40) 01/29/2024 Bronchitis (ICD-10 - J40) 03/04/2024 Chronic fatigue (ICD-10 - R53.82) 03/11/2024 Macrocytic anemia (ICD-10 - D53.9) 03/11/2024 Acquired hypothyroidism (ICD-10 - E03.9) 04/12/2024 Other ascites (ICD-1 0 - R18.8) --x- to be completed at [facility] ---to be completed at [facility] ---to be completed at [facility] ---to be completed at [facility] 04/17/2024 Other ascites (ICD-1 0 - R18.8) --x- to be completed at [facility] ---to be completed at [facility] ---to be completed at [facility] ---to be completed at [facility] 10/13/2023 Type 2 diabetes mellitus without complication, without long-term current use of insulin (ICD-10 - E11.9) 10/13/2023 Idiopathic chronic gout without tophus, unspecified site (ICD-10 - M1A.00X0) 11/21/2023 Type 2 diabetes mellitus without complication, without long-term current use of insulin (ICD-10 - E11.9) 06/04/2024 Other ascites (ICD-1 0 - R18.8) 06/04/2024 Tricuspid regurgitation (ICD-10 - I07.1) 06/05/2024 Other ascites (ICD-1 0 - R18.8) 11/21/2023 Iron deficiency (ICD-10 - E61.1) 06/04/2024 Nonalcoholic steatohepatitis (MIRANDA) (ICD-10 - K75.81) 10/13/2023 Iron deficiency (ICD-10 - E61.1) 10/13/2023 Bilateral chronic serous otitis media (ICD-10 - H65.23) 06/04/2024 Diabetes mellitus with cardiac complication (ICD-10 - E11.59) 11/21/2023 Recurrent major depressive disorder, in full remission (ICD-10 - F33.42) 11/21/2023 Morbid obesity (ICD-10 - E66.01) 11/21/2023 Major depressive disorder, recurrent, moderate (ICD-10 - F33.1) 03/04/2024 Other Venipuncture performed by Debora Vasquez. Left arm/hand. One attempt. Pt tolerated well, bleeding controlled with light dressing. Lab sent to [facility] via [facility]. 04/17/2024 Other see scanned document from [facility] in patients documents. Plan Of Treatment Pending Test Test Name Order Date Paracentesis 06/04/2024 Next Appt Details Provider Name:Solange bush, 06/12/2024 09:15:00 AM, [address] [place] [address], [phone], Provider Name:Gus Sepulveda , 06/12/2024 01:00:00 PM, [address], [place], [address], Provider Name:Hilda troncoso, 06/12/2024 02:00:00 PM, [address] [place] [address] , [address], [place], [address], Provider Name:Gus Sepulveda , 06/19/2024 01:00:00 PM, [address], [place], [address], Provider Name:Gus Sepulveda , 06/27/2024 01:30:00 PM, [address], [place], [address], Provider Name:Gus Sepulveda , 07/03/2024 01:00:00 PM, [address], [place], [address], Provider Name:Gus Sepulveda , 07/10/2024 01:00:00 PM, [address], [place], [address], Provider Name:Gus Sepulveda , 07/17/2024 01:00:00 PM, [address], [place], [address], Insurance Providers Payer Name Payer Address Payer Phone Subscriber Number Group Number Insured Name Patient Relationship to Insured Coverage Start Date Coverage End Date [facility] Medicare Advantage - PPO IN NETWORK [address] [address] [place] [address] [id number] Janice Varghese Self - patient is the insured Medications Administered Medication Instructions Date of Administration Dosage Notes dexAMETHasone 01/29/2024 10 mg Rocephin 01/29/2024 1 g Medical (General) History Medical History History ICD Code erectile dysfunction iron deficiency chronic pain measles Heart Disease Back Trouble stroke coronary artery disease renal failure blood transfusion Surgical History Surgery Date(Month/Year) [address] bypass heart valve replacement x2 (R) hip surgery x2 strokes Colonoscopy in [place], [place]- WNL per pt 2 022 Esophagogastroduodenoscopy in [facility] X - WNL per pt 2021 Hospitalization History Reason Date(Month/Year) cerebrovascular accident
--- OUTSIDE RECORDS SUMMARY | 2024-06-07 23:55 | XMS_ITS ---
Author Name Unknown Organization [facility] ALLERGIES AND ADVERSE REACTIONS No information ASSESSMENT No information CHIEF COMPLAINT No information Vital Signs Bpsitting Date Temperature Heartrate Weight Height Spo2 Bmi Fiel dcount Timerecorded 96/58 2023-0 5-20 97.7 71 266,0 5,10 99 38.1 6 7 10:40 130/62 4-0 5-13 97.3 78 262,2 5,10 96 37.6 2 7 14:00 130/70 4-0 4-08 97.2 74 265,0 5,10 96 38.0 2 7 09:00 130/68 4-0 1-30 97.2 71 266,0 5,10 97 38.1 6 7 14:00 130/70 2022-1 2-22 96.8 76 268,8 5,10 97 38.5 6 7 10:20 OBJECTIVE DATA No information PHYSICAL EXAMINATION No information TREATMENT PLAN No information PROBLEMS No information RESULTS No information REVIEW OF SYSTEMS No information SUBJECTIVE DATA No information MEDICATIONS No information
[2024-06-08] VITALS (9 sets, daily range): BP systolic 113–131; BP diastolic 56–82; PULSE 69–94; RESP 14–18; TEMP 36.4–37.1; O2SAT 94–97
[2024-06-08] MEDS: ketorolac 30 mg/mL INJ 15 MG IVP (00:58)
[2024-06-08] MEDS: haloperidol inj 5 mg/mL INJ 1 mL IVP (01:29)
--- NOTE | 2024-06-08 01:40 | PC.NURSE ---
Patient has been confused since admission; is now becoming increasingly agitated and yelling out. pt is unable to answer any questions at this time, contacted Dr Rowe who advised to give pt 5mg haldol ivp. Called to give her an update and she agreed to come sit with patient.
--- NOTE | 2024-06-08 06:00 | USCV_ITS ---
Abhay Varghese Age: 73 Gender: M : 1950 Exam Date: 06/08/2024 07:50 Ordering Phys: Federico Rowe MD Technologist: Trevor Loredo [place] [facility] [place]: eval for endocarditis BP: 130 / 69 HR: 69 Rhythm: Sinus Technical Quality: Adequate MEASUREMENTS (Male / Female) Normal Values 2D ECHO LV Diastolic Diameter PLAX 7.2 cm 4.2 - 5.9 / 3.9 - 5.3 cm IVS Diastolic Thickness 1.1 cm 0.6 - 1.0 / 0.6 - 0.9 cm IVS Systolic Thickness 1.3 cm LVPW Diastolic Thickness 1.7 cm 0.6 - 1.0 / 0.6 - 0.9 cm LVPW Systolic Thickness 1.4 cm LVOT Diameter 2.1 cm LV Ejection Fraction 2D Teich 35.9 % LV Ejection Fraction MOD 4C 22.0 % LV Ejection Fraction MOD 2C 28.1 % LV Ejection Fraction 2C AL 26.2 % LA Diameter 5.3 cm Aorta at Sinotubular Diameter 2.5 cm IVC Diameter 3.1 cm M-MODE LA Ao Ratio MM 1.7 AV Cusp Separation MM 1.8 cm DOPPLER AV Peak Velocity 130.0 cm/s LVOT Peak Velocity 52.0 cm/s AV Area Cont Eq vti 1.7 cm squared AV Area Cont Eq pk 1.4 cm squared MV Peak Velocity 120.0 cm/s MV Area PHT 4.9 cm squared Mitral E to A Ratio 4.5 TV Peak Velocity 312.5 cm/s TR Peak Velocity 343.0 cm/s TR Peak Gradient 47.1 mmHg TR Mean Velocity 252.0 cm/s TR Mean Gradient 28.4 mmHg TR Velocity Time Integral 95.0 cm PV Peak Velocity 87.0 cm/s RV Ejection Time 0.3 s FINDINGS Left Ventricle Moderately increased left ventricular cavity size. Severely decreased left ventricular systolic function. Left ventricular ejection fraction is estimated at 20 %. Global left ventricular hypokinesis. Grade IV/IV diastolic dysfunction (irreversible restrictive filling pattern), severely elevated filling pressures. Right Ventricle Catheter/pacemaker wire visualized in the right ventricle. Right Atrium Catheter/pacemaker wire in the right atrial cavity. Mildly increased right atrial size. Left Atrium Moderately increased left atrial size. Mitral Valve Moderately thickened mitral valve. Mild mitral annular calcification. No mitral valve stenosis. Mild mitral valve regurgitation. There appeared to be subvalvular echogenic oscillating serpentine structure which could be chordae tendon however cannot rule out vegetation, HARSH will be better modality to assess further Aortic Valve Aortic valve is not well-visualized cannot rule out bioprosthetic aortic valve however aortic valve is working in a good condition without any significant stenosis or regurgitation Tricuspid Valve Thickened tricuspid valve. No tricuspid valve stenosis. Mild tricuspid valve regurgitation. Pulmonic Valve Structurally normal pulmonic valve without significant stenosis. There is no pulmonic regurgitation. Pericardium Normal pericardium without effusion. Aorta Normal ascending aorta dimension. IVC Moderately dilated IVC. CONCLUSIONS 1-Moderately increased left ventricular cavity size. Severely decreased left ventricular systolic function. Left ventricular ejection fraction is estimated at 20 %. Global left ventricular hypokinesis. Grade IV/IV diastolic dysfunction (irreversible restrictive filling pattern), severely elevated filling pressures. 2-Catheter/pacemaker wire in the right atrial cavity. Mildly increased right atrial size. 3-Moderately thickened mitral valve. Mild mitral annular calcification. No mitral valve stenosis. Mild mitral valve regurgitation. There appeared to be subvalvular echogenic oscillating serpentine structure which could be chordae tendon however cannot rule out vegetation, HARSH will be better modality to assess further 4-Aortic valve is not well-visualized cannot rule out bioprosthetic aortic valve however aortic valve is working in a good condition without any significant stenosis or regurgitation 5-Thickened tricuspid valve. No tricuspid valve stenosis. Mild tricuspid valve regurgitation. 6-There is no pericardial effusion. 7-Right atrial pressure is around 20 mm of mercury. Dereje Talley MD (Electronically Signed) Final Date: 08 June 2024 15:01 S
[2024-06-08 06:35] LABS: Ammonia 48 umol/L (16-60)
[2024-06-08 06:45] LABS: Thyroid Stimulating Hormone 20.56 uIU/mL (0.27-4.20)
[2024-06-08] MEDS: levothyroxine 25 mcg Tablet PO (09:57)
[2024-06-08] MEDS: bumetanide 1 mg Tablet 2 MG PO (09:57)
[2024-06-08] MEDS: apixaban 5 mg Tablet PO ×2 (09:57→21:45)
[2024-06-08] MEDS: pantoprazole DR 40 mg Tablet PO (09:57)
[2024-06-08 10:01] LABS: Basophils # 0.1 10^3/uL (0.0-0.1); Basophils % 0.6 %; Eosinophils % 0.3 %; Hematocrit 31.7 % (37-53); Lymphocytes # 0.3 10^3/uL (0.8-4.8); Lymphocytes % 4.4 %; Mean Corpuscular HGB Conc 32.8 g/dL (30-55); Mean Corpuscular Hemoglobin 36.6 pg (27-33); Mean Corpuscular Volume 111.6 fl (82-101); Mean Platelet Volume 9.9 fL (7.4-10.4); Monocytes # 0.8 10^3/uL (0.2-0.9); Monocytes % 9.6 %; Neutrophils # 6.58 10^3/uL (1.8-7.7); Neutrophils % 84.6 %; Nucleated Red Blood Cells % 0 %; Platelet Count 215 10^3/cmm (157-399); Red Blood Count 2.84 10^6/uL (3.85-5.65); Red Cell Distribution Width 21.5 % (12.1-15.1); White Blood Count 7.78 10^3/uL (3.29-11.43)
[2024-06-08 10:17] LABS: Alanine Aminotransferase 11 U/L (0-41); Albumin Level 3.5 g/dL (3.5-5.2); Alkaline Phosphatase 171 U/L (40-130); Anion Gap 22.2 (5-19); Aspartate Amino Transferase 18 U/L (0-40); Blood Urea Nitrogen 64 mg/dL (8-23); Calcium 9.2 mg/dL (8.5-10.5); Carbon Dioxide 21 mmol/L (22-29); Chloride 92 mmol/L (98-107); Globulin 2.9 g/dL (1.3-4.6); Glucose 172 mg/dL (65-115); Osmolality Calculated 292 mOsm/kg (285-295); Potassium 5.2 mmol/L (3.5-5.1); Sodium 130 mmol/L (136-145); Total Bilirubin 1.9 mg/dL (0.15-1.2); Total Protein 6.4 g/dL (6.6-8.7)
[2024-06-08 10:18] LABS: Creatinine Clr Calc Pharmacy 32.7024
[2024-06-08] MEDS: morphine 4 mg/mL SDV 1 mL 2 MG IVP ×2 (10:35→21:45)
--- NOTE | 2024-06-08 11:25 | P.PN_ITS ---
Subjective 2 Subjective: seen this morning pt knows he is in the hospital mental status slightly better than admission does have mild right sided weakness at bedside pt not candidate for tnkase as pt on cindy, discussed this with his she says they wanted to go to midnight as pt's GI doc is at midnight but they were brought here due to it being the nearest hospital. pt sees dr starr at midnight pt apparently was recently treated for hepatorenal syndrome at midnight and dc 2-3 weeks ago. labs pending this am, they have been ordered able to move all 4 extremities Vitals/I&O/Wt Last Vital Signs Temp 97.6 F 06/08/24 07:53 Pulse 71 06/08/24 07:53 Resp 16 06/08/24 10:35 BP 125/82 06/08/24 07:53 Pulse Ox 97 06/08/24 07:53 O2 Del Method Room Air 06/08/24 07:53 06/07/24 06/08/24 06/08/24 22:59 06:59 14:59 Intake Total 0 / 0 0 / 0 240 / 240 Output Total 0 / 0 Balance 0 / 0 0 / 0 240 / 240 Weight last 48 hrs Weight 122.47 kg Weight 121.279 kg Weight 119.295 kg Physical Exam 2 Narrative: General: Patient is awake, alert complaining of generalized pain. . Encephalopathic. Head: Normocephalic. Atraumatic. Neck: No JVD. Cardiovascular: RRR. No gallops. No murmurs. No peripheral edema. Lungs: Breath sounds are slightly diminished at bilateral bases. No use of accessory muscles, no crackles or wheezes. Skin: No jaundice. Abdomen: Normal bowel sounds, abdomen mildly distended. No tenderness to palpation in his abdomen. Extremities: No cyanosis or clubbing. 1+ pitting edema bilateral lower extremities. Neurological: Moves all 4 extremities. Occasional spasm or clonus in his extremities. Follows commands, knows his name and he is in the hospital, mental status improved since admission. Data 06/08/24 09:52 06/08/24 09:52 Micro: Microbiology 06/07/24 19:23 Blood Culture - Preliminary Blood SPECIMEN COLLECTED 06/07/24 19:20 Blood Culture - Preliminary Blood SPECIMEN COLLECTED A&P Assessment and plan (1) Altered mental status: Patient presents with altered mental status with global confusion and global weakness Broad differential No obvious source of infection, continue to monitor for evidence of infection Cultures have been obtained Hepatic encephalopathy within differential despite ammonia 40 Begin treatment of HE with lactulose Head CT negative for acute stroke No focal neurological deficits on exam, obtain brain MRI evaluate for stroke Check urinary drug screen for possible intoxication Neurochecks Avoid sedating medications Supportive care Recent hospitalization at [facility] noted, obtain records - Repeat labs today Check records from midnight MRI to be completed today. discussed with that pt not candidate for tnkase. (2) Liver cirrhosis: History of decompensated liver cirrhosis with recurrent ascites status post paracentesis x 3 No abdominal tenderness to palpation or abdominal complaints to suggest SBP Given confusion, will proceed with treatment with ceftriaxone. continue ceftriaxone check paracentesis Monday. (3) Atrial fibrillation: History of paroxysmal atrial fibrillation on apixaban Patient is on chronic DOAC, he is not a candidate for TNKase Qualifiers: Atrial fibrillation type: permanent Qualified Code(s): I48.21 - Permanent atrial fibrillation (4) Congestive heart failure: Chronic heart failure with reduced ejection fraction There is 2+ pitting edema bilateral lower extremities, spouse reports this is an improvement since his recent hospitalization Continue home torsemide Continue home CHF medications (5) CAD (coronary artery disease): History of CABG Qualifiers: Coronary Disease-Associated Artery/Lesion type: [place] artery [place] vs. transplanted heart: [place] heart Associated angina: without angina Qualified Code(s): I25.10 - Atherosclerotic heart disease of [place] coronary artery without angina pectoris (6) Ischemic cardiomyopathy: History of ICD placement Plan DVT prophylaxis: Apixaban Attestations 2 Medical Necessity Statement*: Patient presents with altered mental status with broad differential which patient's will be admitted observation for further workup, MRI imaging, lactulose dosing, serial neuroexams, and supportive care with expected hospitalization not to cross 2 midnights. Diagnoses Altered mental status R41.82 Liver cirrhosis K74.60 Permanent atrial fibrillation I48.21 Atrial fibrillation type: permanent Congestive heart failure I50.9 Coronary artery disease involving [place] coronary artery of [place] heart without angina pectoris I25.10 Coronary Disease-Associated Artery/Lesion type: [place] artery [place] vs. transplanted heart: [place] heart Associated angina: without angina Ischemic cardiomyopathy I25.5
[2024-06-08 12:00] LABS: Glucose Point of Care 163 mg/dL (70-110)
--- NOTE | 2024-06-08 12:53 | P.CONIM_ITS ---
Providers/Reason For Consult 2 Consulting Physician/Specialty*: kommana/Nephrology Reason for Consult*: VEE on CKD Attending Physician: Carlita Ferrer MD Primary Care Provider: Teo Fields MD History of Present Illness History of Present Illness Abhay Varghese is a 73 year old male Patient is a 73-year-old male with past medical history significant for liver cirrhosis with portal hypertension with recurrent ascites and multiple admissions for decompensated liver cirrhosis, CHF, chronic kidney disease, aortic valve replacement, ischemic cardiomyopathy with ICD placement, hypertension, A-fib coronary artery disease with CABG history of left ICA stenting was brought to the emergency department due to altered mental status he had last paracentesis day before as today. Patient reported patient was confused and was brought to the ER. He was recently admitted at [facility] [place] with prolonged hospitalization due to worsening VEE post paracentesis. Review of Systems 2 Narrative: negative Medications/Allergies Home Medications Medication Instructions Recorded Confirmed Last Taken Type allopurinol 100 mg tablet 100 mg PO DAILY #90 tabs 08/02/22 06/07/24 Unknown Rx duloxetine 60 mg capsule,delayed 60 mg PO DAILY #90 caps 08/02/22 06/07/24 Unknown Rx release tramadol 37.5 mg-acetaminophen 325 1 tab PO BID PRN Pain #60 tabs 08/02/22 06/07/24 Unknown Rx mg tablet pantoprazole 40 mg tablet,delayed 40 mg PO DAILY 04/11/24 06/07/24 Unknown History release apixaban 5 mg tablet (Eliquis) See Rx Instructions .Route 05/13/24 06/07/24 Unknown Rx .COMPLEX #180 tabs aspirin 81 mg tablet,delayed 81 mg PO DAILY 06/07/24 06/07/24 Unknown History release bumetanide 1 mg tablet 2 mg PO BID 06/07/24 06/07/24 Unknown History dapagliflozin propanediol 10 mg 10 mg PO DAILY 06/07/24 06/07/24 Unknown History tablet (Farxiga) hydralazine 10 mg tablet 10 mg PO BID 06/07/24 06/07/24 Unknown History isosorbide dinitrate 10 mg tablet 10 mg PO TID 06/07/24 06/07/24 Unknown History levothyroxine 25 mcg tablet 25 mcg PO DAILY 06/07/24 06/07/24 Unknown History Allergies Allergy/AdvReac Type Severity Reaction Status Date / Time No Known Allergies Allergy Verified 04/11/24 13:50 Current Medications Generic Name Dose Route Start Last Admin Trade Name Derrick PRN Reason Stop Dose Admin Apixaban 5 mg 06/07/24 21:20 06/08/24 09:57 Apixaban 5 Mg Tablet PO 5 mg BID@0900,2100 BRYANT Administration Bumetanide 2 mg 06/08/24 09:00 06/08/24 09:57 Bumetanide 1 Mg Tablet PO 2 mg BID BRYANT Administration Ceftriaxone Sodium 1,000 mg 06/07/24 21:20 06/07/24 21:55 Ceftriaxone 1,000 Mg Sdv IVP 1,000 mg Q24H BRYANT Administration Protocol Levothyroxine Sodium 25 mcg 06/08/24 09:00 06/08/24 09:57 Levothyroxine 25 Mcg Tablet PO 25 mcg DAILY BRYANT Administration Pantoprazole Sodium 40 mg 06/08/24 09:00 06/08/24 09:[address] 40 Mg Tablet PO 40 mg DAILY BRYANT Administration PFSH Acute 2 PFSH: Medical History (Updated 06/07/24 @ 20:53 by Federico Rowe MD) CHF exacerbation Ascites Liver cirrhosis Anticoagulation adequate with anticoagulant therapy Leg pain, right Atherosclerotic heart disease of [place] coronary artery without angina pectoris Gout Carotid artery stenosis with cerebral infarction AV malformation of gastrointestinal tract Dyslipidemia Type 2 diabetes mellitus A1c 6.30 March 2020 Ischemic cardiomyopathy Diabetes Hypertension ICD (implantable cardioverter-defibrillator) in place possibly [facility] device Atrial fibrillation CHF (congestive heart failure) EF ~30% CAD (coronary artery disease) Endocarditis CVA (cerebral vascular accident) TIA (transient ischemic attack) Bilateral carotid artery stenosis Patient had a stenting of the left ICA in April 2020 Surgical History 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 Hx of CABG 1998, 5V Hx of aortic valve replacement bioprosthetic, 2012 H/O carotid endarterectomy Family History Father Bleeding disorder Clotting disorder Diabetes CAD (coronary artery disease) Chronic kidney disease (CKD) Lung disease Stroke Other Family history of premature coronary artery disease Hyperlipidemia Hypertension Denies family history of Dementia Suicide Anesthesia complication Cancer Social History Smoking and tobacco/nicotine status: former use of tobacco/nicotine Alcohol intake: current Alcohol intake frequency: holidays/special occasions only Substance/Drug Use: former Date of last use: tried everything in the 60s Housing: House Vitals/I&O/Wt Last Vital Signs Temp 98 F 06/08/24 11:26 Pulse 69 06/08/24 11:26 Resp 16 06/08/24 11:26 BP 131/71 06/08/24 11:26 Pulse Ox 95 06/08/24 11:26 O2 Del Method Room Air 06/08/24 11:26 06/07/24 06/08/24 06/08/24 22:59 06:59 14:59 Intake Total 0 / 0 0 / 0 270 / 270 Output Total 0 / 0 300 / 300 Balance 0 / 0 0 / 0 -30 / -30 Weight last 48 hrs Weight 122.47 kg Weight 121.279 kg Weight 119.295 kg Physical Exam 2 Narrative: awake , confused S1S2 RRR per report lungs clear per report Distended abdomen + ascites 1 + LE edema Urinary Catheter Management: Vazquez: Cath Placed During This Visit: yes Urinary Catheter Date of Insertion: 06/08/24 Urinary Catheter Time of Insertion: 12:10 Data 06/08/24 09:52 06/08/24 09:52 Micro: Microbiology 06/07/24 19:23 Blood Culture - Preliminary Blood SPECIMEN COLLECTED 06/07/24 19:20 Blood Culture - Preliminary Blood SPECIMEN COLLECTED A&P Assessment and plan (1) Acute kidney injury: 1. Acute on CKD stage III: Baseline creatinine in the mid 1 range now has an VEE with a creatinine of 2.8 associated with hyperkalemia and metabolic acidosis. Patient underwent paracentesis 2 days ago. Etiology of VEE likely multifactorial in the setting of prerenal and possible post paracentesis renal dysfunction. -Will hold diuretics temporarily, will give bicarbonate drip (1 L total). -If no improvement will add midodrine and albumin and octreotide. -No acute indication for hemodialysis. Also patient would not be a good hemodialysis candidate due to advanced liver failure. Will discuss with family. 2. Hyperkalemia: Low K diet and monitor, bicarb drip should also help 3. Metabolic acidosis: Mild, on bicarbonate drip 4. Liver cirrhosis with recurrent ascites and hepatic encephalopathy. 5. Coronary artery disease with prior CABG 6. Cardiomyopathy with ICD placement Overall poor prognosis Evaluated using audiovisual cart. Time spent 40 minutes. Coding Level of Care Code Acute Code for Chg Fwd Diagnoses Acute kidney injury N17.9
[2024-06-08] MEDS: insulin lispro 100 unit/1 mL SUBCUT ×3 (13:09→21:44)
[2024-06-08] MEDS: sodium bicarbonate 150 MEQ in dextrose 5% 1,000 ML 75 MEQ IV (13:10)
[2024-06-08] MEDS: HYDROcodone-acetaminophen 5-325 mg Tablet 1 TAB PO (16:32)
[2024-06-08 16:49] LABS: Glucose Point of Care 188 mg/dL (70-110)
[2024-06-08 20:13] LABS: Glucose Point of Care 141 mg/dL (70-110)
[2024-06-08 20:37] LABS: Lactic Acid level (Lactate) 2.5 mmol/L (0.5-2.2)
[2024-06-08] MEDS: cefTRIAXone 1,000 mg SDV 1000 MG IVP (21:45)
[2024-06-09] VITALS (11 sets, daily range): BP systolic 98–122; BP diastolic 43–71; PULSE 66–88; RESP 15–22; TEMP 36.4–37; O2SAT 95–98
[2024-06-09] MEDS: sodium bicarbonate 150 MEQ in dextrose 5% 1,000 ML 75 MEQ IV (02:51)
[2024-06-09 04:03] LABS: Basophils % 0.5 %; Eosinophils # 0.1 10^3/uL (0.0-0.8); Eosinophils % 1.7 %; Hematocrit 32.1 % (37-53); Lymphocytes # 0.4 10^3/uL (0.8-4.8); Lymphocytes % 4.8 %; Mean Corpuscular Hemoglobin 36.4 pg (27-33); Mean Corpuscular Volume 110.3 fl (82-101); Mean Platelet Volume 10.1 fL (7.4-10.4); Monocytes # 0.9 10^3/uL (0.2-0.9); Monocytes % 10.8 %; Neutrophils # 6.63 10^3/uL (1.8-7.7); Neutrophils % 81.3 %; Nucleated Red Blood Cells % 0.5 %; Platelet Count 246 10^3/cmm (157-399); Red Blood Count 2.91 10^6/uL (3.85-5.65); Red Cell Distribution Width 21.2 % (12.1-15.1); White Blood Count 8.15 10^3/uL (3.29-11.43)
[2024-06-09 04:24] LABS: Alanine Aminotransferase 11 U/L (0-41); Albumin Level 3.6 g/dL (3.5-5.2); Alkaline Phosphatase 166 U/L (40-130); Aspartate Amino Transferase 18 U/L (0-40); Blood Urea Nitrogen 63 mg/dL (8-23); Calcium 9.5 mg/dL (8.5-10.5); Carbon Dioxide 26 mmol/L (22-29); Chloride 91 mmol/L (98-107); Creatinine Clr Calc Pharmacy 31.8483; Globulin 2.8 g/dL (1.3-4.6); Glucose 112 mg/dL (65-115); Magnesium 2.3 mg/dL (1.7-2.3); Osmolality Calculated 291 mOsm/kg (285-295); Sodium 131 mmol/L (136-145); Total Bilirubin 1.2 mg/dL (0.15-1.2); Total Protein 6.4 g/dL (6.6-8.7)
[2024-06-09 06:43] LABS: Glucose Point of Care 133 mg/dL (70-110)
[2024-06-09] MEDS: pantoprazole DR 40 mg Tablet PO (08:27)
[2024-06-09] MEDS: levothyroxine 25 mcg Tablet PO (08:27)
[2024-06-09] MEDS: apixaban 5 mg Tablet PO ×2 (08:27→21:47)
--- NOTE | 2024-06-09 08:54 | PM.PN ---
Subjective Subjective: This morning patient is stating that I should speak with his I asked him how he is doing, patient is stating that he cannot use his right hand at all and he is having pain in his extremities He is able to tell me that he was using a walker up till now I spoke with his over the phone We discussed about current condition, multiorgan failure, guarded prognosis, patient does not want to go to [facility], we discussed goals of care, is wanting to discuss goals of care with rest of the family to see if we can address full CODE STATUS considering underlying worsening condition and poor prognosis I will discontinue bicarb drip Hemoglobin 10.6 stable Bicarb is normal Urine output 800 mL Potassium improved alert with Vitals/I&O/Wt Last Vital Signs Temp 97.8 F 06/09/24 08:00 Pulse 88 06/09/24 08:00 Resp 17 06/09/24 08:00 BP 108/56 06/09/24 08:00 Pulse Ox 96 06/09/24 08:00 O2 Del Method Room Air 06/09/24 04:00 06/08/24 06/09/24 06/09/24 22:59 06:59 14:59 Intake Total 370 / 640 1026.25 / 1666.25 240 / 240 Output Total 500 / 800 400 / 1200 Balance -130 / -160 626.25 / 466.25 240 / 240 Weight last 48 hrs Weight 124.539 kg Weight 122.47 kg Weight 121.279 kg Weight 119.295 kg Physical Exam Narrative: Dense right-sided hemiplegia Complaining of pain in his arms Anasarca Lower extremity swelling Patient able to answer simple questions Groggy and drowsy goes back to sleep Currently on room air Afebrile Urinary Catheter Management: Vazquez: Cath Placed During This Visit: yes Reason for Continuing Indwelling Catheter: Other Urinary Catheter Date of Insertion: 06/08/24 Urinary Catheter Time of Insertion: 12:10 Data 06/09/24 03:07 06/09/24 03:07 Micro: Microbiology 06/07/24 19:20 Urine Culture - Preliminary Urine,Clean Catch Gram Negative Rods 06/07/24 19:23 Blood Culture - Preliminary Blood NEGATIVE TO DATE 06/07/24 19:20 Blood Culture - Preliminary Blood NEGATIVE TO DATE A&P Assessment and plan (1) Altered mental status: Patient is able to answer simple questions Patient has right-sided hemiplegia Likely related to stroke Not a candidate of tPA or TNKase (2) Liver cirrhosis: History of decompensated liver cirrhosis with recurrent ascites status post paracentesis x 3 Continue antibiotics, Patient has been scheduled for weekly paracentesis at [facility] No abdominal pain. (3) Atrial fibrillation: Currently rate controlled continue Eliquis Hemoglobin stable As per the they were seeing soldering inspector for erythropoietin injections as well Qualifiers: Atrial fibrillation type: permanent Qualified Code(s): I48.21 - Permanent atrial fibrillation (4) Congestive heart failure: Active heart failure Status post AICD (5) CAD (coronary artery disease): History of CABG Qualifiers: Coronary Disease-Associated Artery/Lesion type: [place] artery [place] vs. transplanted heart: [place] heart Associated angina: without angina Qualified Code(s): I25.10 - Atherosclerotic heart disease of [place] coronary artery without angina pectoris (6) Ischemic cardiomyopathy: History of ICD placement Plan I spoke with his had a detailed discussion regarding scenario, multiorgan failure, nephrology recommendations, poor prognosis, addressing goals of care She will discuss with her family and let us know Bicarb drip discontinued Low sodium level 6 dysphagia diet Will request PT patient does not want [facility] DVT prophylaxis: Apixaban Attestations Medical Necessity Statement*: Continue medical management Diagnoses Altered mental status R41.82 Liver cirrhosis K74.60 Permanent atrial fibrillation I48.21 Atrial fibrillation type: permanent Congestive heart failure I50.9 Coronary artery disease involving [place] coronary artery of [place] heart without angina pectoris I25.10 Coronary Disease-Associated Artery/Lesion type: [place] artery [place] vs. transplanted heart: [place] heart Associated angina: without angina Ischemic cardiomyopathy I25.5
[2024-06-09] MEDS: oxyCODONE 5 mg IR Tab/Cap PO ×2 (10:20→17:52)
--- NOTE | 2024-06-09 10:29 | P.PN_ITS ---
Subjective 2 Subjective: confused Medications: Reviewed: Yes Vitals/I&O/Wt Last Vital Signs Temp 97.8 F 06/09/24 08:00 Pulse 88 06/09/24 08:00 Resp 20 H 06/09/24 10:20 BP 108/56 06/09/24 08:00 Pulse Ox 96 06/09/24 08:00 O2 Del Method Room Air 06/09/24 04:00 06/08/24 06/09/24 06/09/24 22:59 06:59 14:59 Intake Total 370 / 640 1026.25 / 1666.25 240 / 240 Output Total 500 / 800 400 / 1200 125 / 125 Balance -130 / -160 626.25 / 466.25 115 / 115 Weight last 48 hrs Weight 124.539 kg Weight 122.47 kg Weight 121.279 kg Weight 119.295 kg Physical Exam 2 Narrative: awake , confused S1S2 RRR per report lungs clear per report Distended abdomen + ascites 1 + LE edema Urinary Catheter Management: Vazquez: Cath Placed During This Visit: yes Reason for Continuing Indwelling Catheter: Other Urinary Catheter Date of Insertion: 06/08/24 Urinary Catheter Time of Insertion: 12:10 Data 06/09/24 03:07 06/09/24 03:07 Micro: Microbiology 06/07/24 19:20 Urine Culture - Preliminary Urine,Clean Catch Gram Negative Rods 06/07/24 19:23 Blood Culture - Preliminary Blood NEGATIVE TO DATE 06/07/24 19:20 Blood Culture - Preliminary Blood NEGATIVE TO DATE A&P Assessment and plan (1) Acute kidney injury: 1. Acute on CKD stage III: Baseline creatinine in the mid 1 range now has an VEE with a creatinine of 2.8 associated with hyperkalemia and metabolic acidosis. Patient underwent paracentesis 2 days ago. Etiology of VEE likely multifactorial in the setting of prerenal and possible post paracentesis renal dysfunction. -Will hold diuretics temporarily- hold off on diuretics another day, s/p bicarbonate drip -If no improvement will add midodrine and albumin and octreotide. -No acute indication for hemodialysis. Also patient would not be a good hemodialysis candidate due to advanced liver failure. Will discuss with family. 2. Hyperkalemia: Low K diet and monitor, improved 3. Metabolic acidosis: Mild, s/p bicarbonate drip, improved 4. Liver cirrhosis with recurrent ascites and hepatic encephalopathy. 5. Coronary artery disease with prior CABG 6. Cardiomyopathy with ICD placement Overall poor prognosis Evaluated using audiovisual cart. Time spent 40 minutes. Plan per [facility] Attestations 2 Medical Necessity Statement*: per [facility] Coding Level of Care Code Acute Code for Chg Fwd Diagnoses Acute kidney injury N17.9
[2024-06-09] MEDS: cyclobenzaprine 10 mg Tablet 5 MG PO (10:55)
[2024-06-09 11:01] LABS: Glucose Point of Care 218 mg/dL (70-110)
[2024-06-09] MEDS: gabapentin 100 mg Capsule PO ×2 (13:07→17:52)
[2024-06-09] MEDS: insulin lispro 100 unit/1 mL SUBCUT ×2 (13:08→17:52)
[2024-06-09 17:08] LABS: Glucose Point of Care 158 mg/dL (70-110)
[2024-06-09 20:40] LABS: Glucose Point of Care 95 mg/dL (70-110)
[2024-06-09] MEDS: cefTRIAXone 1,000 mg SDV 1000 MG IVP (21:47)
[2024-06-10] VITALS (9 sets, daily range): BP systolic 109–148; BP diastolic 65–72; PULSE 69–71; RESP 16–19; TEMP 36.6–37; O2SAT 90–97
[2024-06-10] MEDS: oxyCODONE 5 mg IR Tab/Cap PO ×3 (00:41→23:14)
[2024-06-10] MEDS: cyclobenzaprine 10 mg Tablet 5 MG PO ×2 (00:41→23:14)
[2024-06-10 03:44] LABS: Basophils # 0.1 10^3/uL (0.0-0.1); Basophils % 1.1 %; Eosinophils # 0.3 10^3/uL (0.0-0.8); Eosinophils % 3.5 %; Lymphocytes # 0.5 10^3/uL (0.8-4.8); Lymphocytes % 6.2 %; Mean Corpuscular HGB Conc 32.9 g/dL (30-55); Mean Corpuscular Hemoglobin 36.6 pg (27-33); Mean Corpuscular Volume 111.1 fl (82-101); Mean Platelet Volume 10.2 fL (7.4-10.4); Monocytes # 0.9 10^3/uL (0.2-0.9); Monocytes % 11.7 %; Neutrophils # 6.15 10^3/uL (1.8-7.7); Neutrophils % 76.9 %; Nucleated Red Blood Cells # 0.1 /100WBC; Nucleated Red Blood Cells % 0.6 %; Platelet Count 244 10^3/cmm (157-399); Red Blood Count 2.79 10^6/uL (3.85-5.65); Red Cell Distribution Width 21.2 % (12.1-15.1); White Blood Count 8.01 10^3/uL (3.29-11.43)
[2024-06-10 04:05] LABS: Anion Gap 17.3 (5-19); Blood Urea Nitrogen 64 mg/dL (8-23); Calcium 9.3 mg/dL (8.5-10.5); Carbon Dioxide 27 mmol/L (22-29); Chloride 92 mmol/L (98-107); Creatinine Clr Calc Pharmacy 30.7867; Glucose 85 mg/dL (65-115); Osmolality Calculated 290 mOsm/kg (285-295); Potassium 5.3 mmol/L (3.5-5.1); Sodium 131 mmol/L (136-145)
[2024-06-10 06:44] LABS: Glucose Point of Care 83 mg/dL (70-110)
[2024-06-10] MEDS: gabapentin 100 mg Capsule PO ×2 (08:40→18:27)
[2024-06-10] MEDS: pantoprazole DR 40 mg Tablet PO (08:40)
[2024-06-10] MEDS: apixaban 5 mg Tablet PO (08:40)
[2024-06-10] MEDS: levothyroxine 25 mcg Tablet PO (08:40)
[2024-06-10] MEDS: levETIRAcetam 1,000 MG/100 ML PREMIX 400 MG IV (10:32)
--- NOTE | 2024-06-10 11:13 | P.PN_ITS ---
Subjective 2 Subjective: Patient complaining of twitches in his right arm, seems myoclonus, added Keppra Not able to sleep I have told the patient and his that he is at risk of overmedicating himself considering liver and kidney failure, they are well aware that he can get excessively sedated with all these medications Patient remains full code They do not want to be transferred to [facility], waiting few days to 4 Patient is agreeable to start dialysis, I have consulted general surgery for tunneled dialysis catheter placement for hepatorenal syndrome His last dose of Eliquis was on 06/10 9 AM he likely will need to wait till Monday Vitals/I&O/Wt Last Vital Signs Temp 97.9 F 06/10/24 07:14 Pulse 71 06/10/24 07:14 Resp 19 H 06/10/24 07:14 BP 148/66 06/10/24 07:14 Pulse Ox 94 06/10/24 07:14 O2 Del Method Room Air 06/10/24 07:14 06/09/24 06/10/24 06/10/24 22:59 06:59 14:59 Intake Total 1271.25 / 1751.25 100 / 100 Output Total 375 / 500 150 / 650 Balance 896.25 / 1251.25 -150 / 1101.25 100 / 100 Weight last 48 hrs Weight 131.23 kg Weight 124.539 kg Physical Exam 2 Narrative: Awake and alert Agitated because he has not been able to sleep Asterixis positive Tremors of right arm Strength of right leg 1/5, strength of right upper arm 3/5 Able to follow commands Awake and alert No new focal deficit other than right-sided hemiplegia Patient gets confused regarding directions right versus left Nontender abdomen, distended S1, S2 A-fib without RVR Currently on room air Urinary Catheter Management: Vazquez: Cath Placed During This Visit: yes Reason for Continuing Indwelling Catheter: Other Urinary Catheter Date of Insertion: 06/08/24 Urinary Catheter Time of Insertion: 12:10 Data 06/10/24 03:32 06/10/24 03:32 Micro: Microbiology 06/07/24 19:20 Urine Culture - Preliminary Urine,Clean Catch Gram Negative Rods A&P Assessment and plan (1) Ischemic cardiomyopathy: (2) Chronic systolic (congestive) heart failure: (3) Atrial fibrillation: Qualifiers: Atrial fibrillation type: permanent Qualified Code(s): I48.21 - Permanent atrial fibrillation (4) Peripheral arterial disease: (5) Chronic anticoagulation: (6) Anticoagulation adequate with anticoagulant therapy: (7) Diabetes: (8) Liver cirrhosis: (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: (11) Ascites: (12) Chronic kidney disease: (13) Acute kidney injury: (14) Anemia: Qualifiers: Anemia type: iron deficiency Iron deficiency anemia type: chronic blood loss Qualified Code(s): D50.0 - Iron deficiency anemia secondary to blood loss (chronic) (15) Altered mental status: (16) Acute metabolic encephalopathy: Plan Metabolic encephalopathy: Improving Asterixis positive related to liver and kidney failure Acute on chronic kidney disease with hepatorenal syndrome: Will get tunneled dialysis catheter placement on Monday Last dose of Eliquis today Ischemic cardiomyopathy status post AICD/pacemaker: Noncompatible with MRI Ascites: Will decide about paracentesis after initiation of dialysis Prognosis: Guarded Family meeting conducted today patient remains full code for now Dysphagia diet N.p.o. for 06/12 Patient has refused intermediate and assisted living placement at the bedside stating that they would like to go home once they start dialysis They were made aware that he is at risk of sudden cardiac arrest multiorgan failure, respiratory arrest, they want a trial of CPR or defibrillation and intubation Right-sided myoclonus of upper extremity: Added Keppra will add muscle relaxant and low-dose gabapentin he is at risk of medication overdose Attestations 2 Medical Necessity Statement*: Continue medical management Diagnoses Ischemic cardiomyopathy I25.5 Chronic systolic (congestive) heart failure I50.22 Permanent atrial fibrillation I48.21 Atrial fibrillation type: permanent Peripheral arterial disease I73.9 Chronic anticoagulation Z79.01 Anticoagulation adequate with anticoagulant therapy Z79.01 Diabetes E11.9 Liver cirrhosis K74.60 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
--- NOTE | 2024-06-10 13:57 | PM.PN ---
Subjective Subjective: sleeping , arousable Medications: Reviewed: Yes Vitals/I&O/Wt Last Vital Signs Temp 98.6 F 06/10/24 11:15 Pulse 70 06/10/24 11:15 Resp 16 06/10/24 11:15 BP 121/72 06/10/24 11:15 Pulse Ox 96 06/10/24 11:15 O2 Del Method Room Air 06/10/24 11:15 06/09/24 06/10/24 06/10/24 22:59 06:59 14:59 Intake Total 1271.25 / 1751.25 220 / 220 Output Total 375 / 500 150 / 650 Balance 896.25 / 1251.25 -150 / 1101.25 220 / 220 Weight last 48 hrs Weight 131.23 kg Weight 124.539 kg Physical Exam Narrative: awake , confused S1S2 RRR per report lungs clear per report Distended abdomen + ascites 1 + LE edema Urinary Catheter Management: Vazquez: Cath Placed During This Visit: yes Reason for Continuing Indwelling Catheter: Other Urinary Catheter Date of Insertion: 06/08/24 Urinary Catheter Time of Insertion: 12:10 Data 06/10/24 03:32 06/10/24 03:32 Micro: Microbiology 06/07/24 19:20 Urine Culture - Final Urine,Clean Catch Pseudomonas aeruginosa A&P Assessment and plan (1) Acute kidney injury: 1. Acute on CKD stage III: Baseline creatinine in the mid 1 range now has an VEE with a creatinine of 2.8 associated with hyperkalemia and metabolic acidosis. Patient underwent paracentesis 2 days ago. Etiology of VEE likely multifactorial in the setting of prerenal and possible post paracentesis renal dysfunction. -Will hold diuretics temporarily -If no improvement will add midodrine and albumin and octreotide. -Noted recurrent Hyperkalemia -pt is not a good jail HD candidate due to advanced liver failure , can attempt HD for volume management and hyperkalemia 2. Hyperkalemia: Low K diet and monitor, improved 3. Metabolic acidosis: Mild, s/p bicarbonate drip, improved 4. Liver cirrhosis with recurrent ascites and hepatic encephalopathy. 5. Coronary artery disease with prior CABG 6. Cardiomyopathy with ICD placement Overall poor prognosis Evaluated using audiovisual cart. Time spent 40 minutes. Plan per [facility] Attestations Medical Necessity Statement*: per [facility] Coding Level of Care Code Acute Code for Chg Fwd Diagnoses Acute kidney injury N17.9
--- NOTE | 2024-06-10 17:38 | PC.PT ---
PT evaluation attempted in AM by another PT and patient requested for PT come back later. Evaluation attempted by this therapist and patient was sleeping soundly unable to wake for evaluation visit.
[2024-06-10] MEDS: levETIRAcetam 1,000 mg/10 mL UDC 500 MG PO (18:27)
[2024-06-10] MEDS: insulin lispro 100 unit/1 mL SUBCUT ×2 (18:27→23:15)
[2024-06-10] MEDS: cefTRIAXone 1,000 mg SDV 1000 MG IVP (23:15)
[2024-06-11] VITALS (7 sets, daily range): BP systolic 93–122; BP diastolic 55–73; PULSE 69–84; RESP 16–22; TEMP 36.4–36.7; O2SAT 91–97
[2024-06-11 05:28] LABS: White Blood Count 7.13 10^3/uL (3.29-11.43)
[2024-06-11 05:29] LABS: Basophils # 0.1 10^3/uL (0.0-0.1); Basophils % 1.4 %; Eosinophils # 0.3 10^3/uL (0.0-0.8); Eosinophils % 4.3 %; Hematocrit 33.1 % (37-53); Lymphocytes # 0.6 10^3/uL (0.8-4.8); Lymphocytes % 8.3 %; Mean Corpuscular HGB Conc 33.2 g/dL (30-55); Mean Corpuscular Hemoglobin 37.7 pg (27-33); Mean Corpuscular Volume 113.4 fl (82-101); Mean Platelet Volume 9.8 fL (7.4-10.4); Monocytes % 13.5 %; Neutrophils # 5.12 10^3/uL (1.8-7.7); Neutrophils % 71.8 %; Nucleated Red Blood Cells # 0.1 /100WBC; Nucleated Red Blood Cells % 0.8 %; Platelet Count 250 10^3/cmm (157-399); Red Blood Count 2.92 10^6/uL (3.85-5.65)
[2024-06-11 05:51] LABS: Anion Gap 18.5 (5-19); Blood Urea Nitrogen 65 mg/dL (8-23); Carbon Dioxide 27 mmol/L (22-29); Chloride 93 mmol/L (98-107); Creatinine Clr Calc Pharmacy 30.9461; Glucose 104 mg/dL (65-115); Osmolality Calculated 295 mOsm/kg (285-295); Potassium 5.5 mmol/L (3.5-5.1); Sodium 133 mmol/L (136-145)
--- NOTE | 2024-06-11 09:09 | P.PN_ITS ---
Subjective 2 Subjective: Patient is stating that he is feeling slightly better he was able to sleep Right leg tremors improved, he still experiencing cramps in his right upper extremity He will go for dialysis catheter placement on Monday Will make him n.p.o. after midnight Vitals/I&O/Wt Last Vital Signs Temp 97.9 F 06/11/24 07:35 Pulse 70 06/11/24 07:35 Resp 18 06/11/24 07:35 BP 122/73 06/11/24 07:35 Pulse Ox 94 06/11/24 07:35 O2 Del Method Room Air 06/11/24 07:35 06/10/24 06/11/24 06/11/24 22:59 06:59 14:59 Intake Total 120 / 340 360 / 360 Output Total 200 / 200 Balance 120 / 340 -200 / 140 360 / 360 Weight last 48 hrs Weight 125.787 kg Weight 131.23 kg Physical Exam 2 Narrative: Signs of persistent hypervolemia Creatinine stable Patient complaining of cramps and tremor of right upper extremity Right lower extremity tremor improved Distended abdomen nontender Currently on room air Hemodynamically stable GCS 15 Right-sided hemiplegia No new focal deficit Awake and alert able to comprehend Vazquez catheter in place Urinary Catheter Management: Vazquez: Cath Placed During This Visit: yes Reason for Continuing Indwelling Catheter: Other Urinary Catheter Date of Insertion: 06/08/24 Urinary Catheter Time of Insertion: 12:10 Data 06/11/24 05:08 06/11/24 05:08 Micro: Microbiology 06/07/24 19:20 Urine Culture - Final Urine,Clean Catch Pseudomonas aeruginosa A&P Assessment and plan (1) Ischemic cardiomyopathy: (2) Chronic systolic (congestive) heart failure: (3) Atrial fibrillation: Qualifiers: Atrial fibrillation type: permanent Qualified Code(s): I48.21 - Permanent atrial fibrillation (4) Peripheral arterial disease: (5) Chronic anticoagulation: (6) Anticoagulation adequate with anticoagulant therapy: (7) Diabetes: (8) Liver cirrhosis: (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 Keppra Right-sided dense hemiplegia Will need extensive physical therapy Patient does not want to go to alf Hepatorenal syndrome Dialysis catheter placement by tomorrow Patient was scheduled for weekly paracentesis will asked Dr. Mobley if we can do peritoneal drain as well during this hospitalization to avoid recurrent paracentesis Peritoneal drain will be considered a palliative intervention N.p.o. after midnight Off anticoagulating agent since yesterday Continue ceftriaxone Continuing Keppra, muscle relaxant and gabapentin for neuropathic pain Insomnia continue Ambien on as-needed basis Guarded prognosis Patient has right-sided hemiplegia, poor EF, hepatorenal syndrome underlying liver cirrhosis and now starting dialysis He wants to stay full code Attestations 2 Medical Necessity Statement*: Discharge once we have chair time Diagnoses Ischemic cardiomyopathy I25.5 Chronic systolic (congestive) heart failure I50.22 Permanent atrial fibrillation I48.21 Atrial fibrillation type: permanent Peripheral arterial disease I73.9 Chronic anticoagulation Z79.01 Anticoagulation adequate with anticoagulant therapy Z79.01 Diabetes E11.9 Liver cirrhosis K74.60 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
[2024-06-11] MEDS: levothyroxine 25 mcg Tablet PO (09:12)
[2024-06-11] MEDS: pantoprazole DR 40 mg Tablet PO (09:12)
[2024-06-11] MEDS: gabapentin 100 mg Capsule PO ×2 (09:12→17:52)
[2024-06-11] MEDS: levETIRAcetam 1,000 mg/10 mL UDC 500 MG PO ×2 (09:35→17:52)
[2024-06-11] MEDS: cyclobenzaprine 10 mg Tablet 5 MG PO (11:46)
[2024-06-11] MEDS: insulin lispro 100 unit/1 mL SUBCUT ×3 (11:46→21:48)
[2024-06-11] MEDS: oxyCODONE 5 mg IR Tab/Cap PO (11:47)
--- NOTE | 2024-06-11 12:07 | PM.CONSULT ---
Providers/Reason For Consult Consulting Physician/Specialty*: Dr. Hever Mobley, DO/General Surgery Reason for Consult*: Request for permacath placement and peritoneal dialysis/drainage catheter placement Attending Physician: Dereje Reyes MD Primary Care Provider: Teo Fields MD History of Present Illness History of Present Illness Abhay Varghese is a 73 year old male with past medical history significant for decompensated liver cirrhosis with recurrent ascites, congestive heart failure, chronic kidney disease, aortic valve replacement, ischemic cardiomyopathy status post ICD placement, prior stroke x 2, hypertension, atrial fibrillation on apixaban, coronary artery disease with history of CABG, and bilateral carotid artery stenosis with history of left ICA stenting who presented to the hospital originally with altered mental status. Currently he is awake and oriented. He denies any significant pain, nausea, diarrhea, hematochezia and/or melena. He requires paracentesis. He now requires hemodialysis due to acute on chronic kidney disease. Consulted for possible permacath placement and peritoneal dialysis/drainage catheter placement Review of Systems General: Reports: 10 or more systems reviewed and unremarkable except in HPI and below Medications/Allergies Home Medications Medication Instructions Recorded Confirmed Last Taken Type allopurinol 100 mg tablet 100 mg PO DAILY #90 tabs 08/02/22 06/07/24 Unknown Rx duloxetine 60 mg capsule,delayed 60 mg PO DAILY #90 caps 08/02/22 06/07/24 Unknown Rx release tramadol 37.5 mg-acetaminophen 325 1 tab PO BID PRN Pain #60 tabs 08/02/22 06/07/24 Unknown Rx mg tablet pantoprazole 40 mg tablet,delayed 40 mg PO DAILY 04/11/24 06/07/24 Unknown History release apixaban 5 mg tablet (Eliquis) See Rx Instructions .Route 05/13/24 06/07/24 Unknown Rx .COMPLEX #180 tabs aspirin 81 mg tablet,delayed 81 mg PO DAILY 06/07/24 06/07/24 Unknown History release bumetanide 1 mg tablet 2 mg PO BID 06/07/24 06/07/24 Unknown History dapagliflozin propanediol 10 mg 10 mg PO DAILY 06/07/24 06/07/24 Unknown History tablet (Farxiga) hydralazine 10 mg tablet 10 mg PO BID 06/07/24 06/07/24 Unknown History isosorbide dinitrate 10 mg tablet 10 mg PO TID 06/07/24 06/07/24 Unknown History levothyroxine 25 mcg tablet 25 mcg PO DAILY 06/07/24 06/07/24 Unknown History Allergies Allergy/AdvReac Type Severity Reaction Status Date / Time No Known Allergies Allergy Verified 04/11/24 13:50 Current Medications Generic Name Dose Route Start Last Admin Trade Name Freq PRN Reason Stop Dose Admin Apixaban 5 mg 06/07/24 21:20 06/10/24 08:40 Apixaban 5 Mg Tablet PO 5 mg BID@0900,2100 BRYANT Administration Bumetanide 2 mg 06/08/24 09:00 06/08/24 09:57 Bumetanide 1 Mg Tablet PO 2 mg BID BRYANT Administration Ceftriaxone Sodium 1,000 mg 06/07/24 21:20 06/10/24 23:15 Ceftriaxone 1,000 Mg Sdv IVP 1,000 mg Q24H BRYANT Administration Protocol Cyclobenzaprine HCl 5 mg 06/09/24 10:50 06/11/24 11:46 Cyclobenzaprine 10 Mg Tablet PO 5 mg BID PRN Administration MUSCLE SPASMS Gabapentin 100 mg 06/09/24 13:15 06/11/24 09:12 Gabapentin 100 Mg Capsule PO 100 mg BID BRYANT Administration Insulin Human Lispro 0 unit 06/08/24 12:00 06/11/24 11:46 Insulin Lispro 100 Unit/1 Ml SUBCUT 2 unit WM&BEDTIME BRYANT Administration Protocol Levetiracetam 500 mg 06/10/24 18:00 06/11/24 09:35 Levetiracetam 1,000 Mg/10 Ml Udc PO 500 mg BID BRYANT Administration Levothyroxine Sodium 25 mcg 06/08/24 09:00 06/11/24 09:12 Levothyroxine 25 Mcg Tablet PO 25 mcg DAILY BRYANT Administration Oxycodone HCl 5 mg 06/09/24 09:31 06/11/24 11:47 Oxycodone 5 Mg Ir Tab/Cap PO 5 mg Q6H PRN Administration MODERATE PAIN Pantoprazole Sodium 40 mg 06/08/24 09:00 06/11/24 09:[address] 40 Mg Tablet PO 40 mg DAILY BRYANT Administration PFSH Acute PFSH: Medical History CHF exacerbation Ascites Liver cirrhosis Anticoagulation adequate with anticoagulant therapy Leg pain, right Atherosclerotic heart disease of [place] coronary artery without angina pectoris Gout Carotid artery stenosis with cerebral infarction AV malformation of gastrointestinal tract Dyslipidemia Type 2 diabetes mellitus A1c 6.30 March 2020 Ischemic cardiomyopathy Diabetes Hypertension ICD (implantable cardioverter-defibrillator) in place possibly [facility] device Atrial fibrillation CHF (congestive heart failure) EF ~30% CAD (coronary artery disease) Endocarditis CVA (cerebral vascular accident) TIA (transient ischemic attack) Bilateral carotid artery stenosis Patient had a stenting of the left ICA in April 2020 Surgical History 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 Hx of CABG 1997, 5V Hx of aortic valve replacement bioprosthetic, 2012 H/O carotid endarterectomy Family History Father Bleeding disorder Clotting disorder Diabetes CAD (coronary artery disease) Chronic kidney disease (CKD) Lung disease Stroke Other Family history of premature coronary artery disease Hyperlipidemia Hypertension Denies family history of Dementia Suicide Anesthesia complication Cancer Social History Smoking and tobacco/nicotine status: former use of tobacco/nicotine Alcohol intake: current Alcohol intake frequency: holidays/special occasions only Substance/Drug Use: former Date of last use: tried everything in the 60s Housing: House Vitals/I&O/Wt Last Vital Signs Temp 97.9 F 06/11/24 07:35 Pulse 70 06/11/24 07:35 Resp 18 06/11/24 07:35 BP 122/73 06/11/24 07:35 Pulse Ox 94 06/11/24 07:35 O2 Del Method Room Air 06/11/24 07:35 06/10/24 06/11/24 06/11/24 22:59 06:59 14:59 Intake Total 120 / 340 360 / 360 Output Total 200 / 200 Balance 120 / 340 -200 / 140 360 / 360 Weight last 48 hrs Weight 277 lb 5 oz Weight 289 lb 5 oz Physical Exam Narrative: General : Patient is well developed , no acute distress, oriented x3 Head : Normal cephalic, a-traumatic. Ears : Pinnae and external canal are normal. Hearing is normal. Eyes : PERRLA, Sclera and injection are normal. No conjunctival discharge. Nose : Mucous membranes are without erythema. Throat : buccal mucosa is normal, gums are without significant recession or hypertrophy. Lungs : Equal chest rise bilaterally, no use of accessory muscles, trachea is midline. Cor : Rate and rhythm are normal. Abdomen : Soft, distended, nontender, positive fluid wave, no g/r/m Extremities : No edema, no cyanosis or clubbing, dorsalis pedis pulses are present bilaterally, non-tender to palpation of calves. Upper extremities are normal bilaterally. Back : non-tender to palpation, no CVA tenderness. Neuro : CN II - XII intact, Upper and lower extremities have equal and full strength Urinary Catheter Management: Vazquez: Cath Placed During This Visit: yes Reason for Continuing Indwelling Catheter: Other Urinary Catheter Date of Insertion: 06/08/24 Urinary Catheter Time of Insertion: 12:10 Data 06/11/24 05:08 06/11/24 05:08 Micro: Microbiology 06/07/24 19:20 Urine Culture - Final Urine,Clean Catch Pseudomonas aeruginosa A&P Assessment and plan (1) Liver cirrhosis: (2) Ascites: (3) Acute kidney injury: (4) Chronic kidney disease: Plan Anticoagulation will be held for 2 days as of tomorrow Tomorrow for permacath placement and laparoscopic peritoneal dialysis catheter placement The risks and benefits of the procedures, including but not limited to, bleeding, infection, scar, numbness, pain, damage to surrounding structures, pneumothorax thoracostomy tube, conversion to an open procedure, were explained to the patient. He is understanding of the risks and wishes to proceed. Coding Level of Care Code 00456 Diagnoses Liver cirrhosis K74.60 Ascites R18.8 Acute kidney injury N17.9 Chronic kidney disease N18.9
--- NOTE | 2024-06-11 13:05 | P.PN_ITS ---
Subjective 2 Subjective: pt more alert Medications: Reviewed: Yes Vitals/I&O/Wt Last Vital Signs Temp 98.0 F 06/11/24 12:00 Pulse 70 06/11/24 12:00 Resp 22 H 06/11/24 12:00 BP 108/72 06/11/24 12:00 Pulse Ox 96 06/11/24 12:00 O2 Del Method Room Air 06/11/24 12:00 06/10/24 06/11/24 06/11/24 22:59 06:59 14:59 Intake Total 120 / 340 360 / 360 Output Total 200 / 200 Balance 120 / 340 -200 / 140 360 / 360 Weight last 48 hrs Weight 125.787 kg Weight 131.23 kg Physical Exam 2 Narrative: awake , alert S1S2 RRR per report lungs clear per report Distended abdomen + ascites 1 + LE edema Urinary Catheter Management: Vazquez: Cath Placed During This Visit: yes Reason for Continuing Indwelling Catheter: Other Urinary Catheter Date of Insertion: 06/08/24 Urinary Catheter Time of Insertion: 12:10 Data 06/11/24 05:08 06/11/24 05:08 Micro: Microbiology 06/07/24 19:20 Urine Culture - Final Urine,Clean Catch Pseudomonas aeruginosa A&P Assessment and plan (1) Acute kidney injury: 1. Acute on CKD stage III: Baseline creatinine in the mid 1 range now has an VEE with a creatinine of 2.8 associated with hyperkalemia and metabolic acidosis. Patient underwent paracentesis 2 days ago. Etiology of VEE likely multifactorial in the setting of prerenal and possible post paracentesis renal dysfunction. 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 Hyperkalemia: Low K diet and monitor, improved 3. Metabolic acidosis: Mild, s/p bicarbonate drip, improved 4. Liver cirrhosis with recurrent ascites and hepatic encephalopathy. 5. Coronary artery disease with prior CABG 6. Cardiomyopathy with ICD placement Overall poor prognosis Evaluated using audiovisual cart. Time spent 40 minutes. [facility] Attestations 2 Medical Necessity Statement*: per [facility] Coding Level of Care Code Acute Code for Chg Fwd Diagnoses Acute kidney injury N17.9
--- NOTE | 2024-06-11 13:43 | PC.OT ---
OT tx attempted at this time. He is resting in bed and becomes irritated when therapist approaches for tx.Pt's is not in room and pt reports She will be back later . Therapist to attempt tx again later today if possible to educate pt and in techniques to possibly reduce tremors in pts R UE.
[2024-06-11 14:52] LABS: Hepatitis B Core AB, Total Non-Reactive (Nonreactive); Hepatitis B Surface AB < 3.5 (11.5-1000); Hepatitis B Surface Antigen Non-Reactive (Nonreactive)
[2024-06-11 18:23] LABS: Glucose Point of Care 110 mg/dL (70-110)
[2024-06-11] MEDS: cefTRIAXone 1,000 mg SDV 1000 MG IVP (20:44)
[2024-06-11 21:03] LABS: Glucose Point of Care 158 mg/dL (70-110)
[2024-06-12] VITALS (16 sets, daily range): BP systolic 105–131; BP diastolic 61–87; PULSE 66–79; RESP 12–18; TEMP 36.3–36.8; O2SAT 91–100
[2024-06-12 05:57] LABS: Basophils # 0.1 10^3/uL (0.0-0.1); Basophils % 1.3 %; Eosinophils # 0.4 10^3/uL (0.0-0.8); Hematocrit 33.9 % (37-53); Lymphocytes # 0.4 10^3/uL (0.8-4.8); Lymphocytes % 5.6 %; Mean Corpuscular Hemoglobin 37.8 pg (27-33); Mean Corpuscular Volume 114.5 fl (82-101); Mean Platelet Volume 9.9 fL (7.4-10.4); Monocytes # 0.8 10^3/uL (0.2-0.9); Monocytes % 10.6 %; Neutrophils # 6.01 10^3/uL (1.8-7.7); Neutrophils % 76.6 %; Nucleated Red Blood Cells % 0.5 %; Platelet Count 263 10^3/cmm (157-399); Red Blood Count 2.96 10^6/uL (3.85-5.65); Red Cell Distribution Width 20.8 % (12.1-15.1); White Blood Count 7.84 10^3/uL (3.29-11.43)
[2024-06-12 06:21] LABS: Anion Gap 18.1 (5-19); Blood Urea Nitrogen 63 mg/dL (8-23); Carbon Dioxide 27 mmol/L (22-29); Chloride 93 mmol/L (98-107); Glucose 102 mg/dL (65-115); Osmolality Calculated 294 mOsm/kg (285-295); Potassium 5.1 mmol/L (3.5-5.1); Sodium 133 mmol/L (136-145)
[2024-06-12 06:23] LABS: Glucose Point of Care 93 mg/dL (70-110)
[2024-06-12] MEDS: pantoprazole DR 40 mg Tablet PO (09:20)
[2024-06-12] MEDS: levETIRAcetam 1,000 mg/10 mL UDC 500 MG PO (09:20)
[2024-06-12] MEDS: gabapentin 100 mg Capsule PO ×2 (09:20→17:48)
[2024-06-12] MEDS: levothyroxine 25 mcg Tablet PO (09:20)
--- NOTE | 2024-06-12 09:40 | P.PN_ITS ---
Subjective 2 Subjective: Patient is n.p.o. for tunneled dialysis catheter placement today Will discontinue antibiotics by tomorrow Patient will need to wait until we dialyze him to see his hemodynamic response with first dialysis session Hopefully we can discharge him in next 24 hours Jaden is on hold Patient able to participate with PT today to some extent He will need a wheelchair at the time of discharge Vitals/I&O/Wt Last Vital Signs Temp 97.6 F 06/12/24 07:39 Pulse 70 06/12/24 07:39 Resp 18 06/12/24 07:39 BP 121/77 06/12/24 07:39 Pulse Ox 95 06/12/24 07:39 O2 Del Method Room Air 06/12/24 07:39 06/11/24 06/12/24 06/12/24 22:59 06:59 14:59 Intake Total 360 / 1200 Output Total 650 / 650 200 / 850 Balance -290 / 550 -200 / 350 Weight last 48 hrs Weight 126.325 kg Weight 125.787 kg Physical Exam 2 Narrative: Right-sided weakness seems to be improving Right upper extremity weakness has improved Right lower extremity still weak Complaining of cramps which are getting better Abdomen soft nontender, distended Pleasant and cooperative Currently on room air Hemodynamic stable Vazquez catheter in place Urinary Catheter Management: Vazquez: Cath Placed During This Visit: yes Reason for Continuing Indwelling Catheter: Other Urinary Catheter Date of Insertion: 06/08/24 Urinary Catheter Time of Insertion: 12:10 Data 06/12/24 05:26 06/12/24 05:26 A&P Assessment and plan (1) Ischemic cardiomyopathy: (2) Chronic systolic (congestive) heart failure: (3) Atrial fibrillation: Qualifiers: Atrial fibrillation type: permanent Qualified Code(s): I48.21 - Permanent atrial fibrillation (4) Peripheral arterial disease: (5) Chronic anticoagulation: (6) Anticoagulation adequate with anticoagulant therapy: (7) Diabetes: (8) Liver cirrhosis: (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: (11) Ascites: (12) Chronic kidney disease: (13) Acute kidney injury: (14) Anemia: Qualifiers: Anemia type: iron deficiency Iron deficiency anemia type: chronic blood loss Qualified Code(s): D50.0 - Iron deficiency anemia secondary to blood loss (chronic) (15) Altered mental status: (16) Acute metabolic encephalopathy: Plan Encephalopathy which is metabolic in nature has improved significantly Right-sided stroke with improvement of weakness of her upper extremity Will need a wheelchair at time of discharge Refused prison placement Continue working with PT Jaden on hold for A-fib Plan for dialysis catheter placement today Hopefully will be able to discharge in next 24 hours after doing for session of dialysis in the hospital Will remove Vazquez catheter as well at time of discharge and provide wheelchair Patient has poor ejection fraction status post AICD Liver cirrhosis Overall has guarded prognosis Patient is also interested in hospice referral at the time of discharge Muscle cramps of upper extremity improving He may resume renal dialysis diet after dialysis catheter placement today Resume Eliqujannet tomorrow morning Disposition: Once we get chair time Attestations 2 Medical Necessity Statement*: Will need dialysis session in the hospital Diagnoses Ischemic cardiomyopathy I25.5 Chronic systolic (congestive) heart failure I50.22 Permanent atrial fibrillation I48.21 Atrial fibrillation type: permanent Peripheral arterial disease I73.9 Chronic anticoagulation Z79.01 Anticoagulation adequate with anticoagulant therapy Z79.01 Diabetes E11.9 Liver cirrhosis K74.60 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
[2024-06-12 10:38] LABS: Glucose Point of Care 97 mg/dL (70-110)
--- NOTE | 2024-06-12 10:57 | P.PN_ITS ---
Subjective 2 Subjective: no new complaints Medications: Reviewed: Yes Vitals/I&O/Wt Last Vital Signs Temp 97.6 F 06/12/24 07:39 Pulse 70 06/12/24 07:39 Resp 18 06/12/24 07:39 BP 121/77 06/12/24 07:39 Pulse Ox 95 06/12/24 07:39 O2 Del Method Room Air 06/12/24 07:39 06/11/24 06/12/24 06/12/24 22:59 06:59 14:59 Intake Total 360 / 1200 Output Total 650 / 650 200 / 850 Balance -290 / 550 -200 / 350 Weight last 48 hrs Weight 126.325 kg Weight 125.787 kg Physical Exam 2 Narrative: awake , alert S1S2 RRR per report lungs clear per report Distended abdomen + ascites 1 + LE edema Urinary Catheter Management: Vazquez: Cath Placed During This Visit: yes Reason for Continuing Indwelling Catheter: Other Urinary Catheter Date of Insertion: 06/08/24 Urinary Catheter Time of Insertion: 12:10 Data 06/12/24 05:26 06/12/24 05:26 A&P Assessment and plan (1) Acute kidney injury: 1. Acute on CKD stage III: Baseline creatinine in the mid 1 range now has an VEE with a creatinine of 2.8 associated with hyperkalemia and metabolic acidosis. Patient underwent paracentesis 2 days ago. Etiology of VEE likely multifactorial in the setting of prerenal and possible post paracentesis renal dysfunction. 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 Hyperkalemia: Low K diet and monitor, improved 3. Metabolic acidosis: Mild, s/p bicarbonate drip, improved 4. Liver cirrhosis with recurrent ascites and hepatic encephalopathy. 5. Coronary artery disease with prior CABG 6. Cardiomyopathy with ICD placement Overall poor prognosis Evaluated using audiovisual cart. Time spent 40 minutes. Plan per [facility] Attestations 2 Medical Necessity Statement*: per angelina Coding Level of Care Code Acute Code for Chg Fwd Diagnoses Acute kidney injury N17.9
[2024-06-12] MEDS: insulin regular-human 10 UNIT in SYRINGE 1 EACH IVP (11:23)
[2024-06-12] MEDS: dextrose 5%-sod chloride 0.9% 1,000 ML 30 ML IV (11:23)
[2024-06-12 11:43] LABS: Hepatitis B Core AB, Total Non-Reactive (Nonreactive); Hepatitis B Surface AB < 3.5 (11.5-1000); Hepatitis B Surface Antigen Non-Reactive (Nonreactive)
[2024-06-12] MEDS: sodium chloride 0.9% 1,000 ML 30 ML IV (13:54)
--- NOTE | 2024-06-12 14:16 | P.PN_ITS ---
Vitals/I&O/Wt Last Vital Signs Temp 97.5 F L 06/12/24 11:21 Pulse 79 06/12/24 11:21 Resp 18 06/12/24 11:21 BP 120/70 06/12/24 11:21 Pulse Ox 91 06/12/24 11:21 O2 Del Method Room Air 06/12/24 13:50 06/11/24 06/12/24 06/12/24 22:59 06:59 14:59 Intake Total 360 / 1200 Output Total 650 / 650 200 / 850 Balance -290 / 550 -200 / 350 Weight last 48 hrs Weight 278 lb 8 oz Weight 277 lb 5 oz Physical Exam 2 Urinary Catheter Management: Vazquez: Cath Placed During This Visit: yes Reason for Continuing Indwelling Catheter: Other Urinary Catheter Date of Insertion: 06/08/24 Urinary Catheter Time of Insertion: 12:10 Data 06/12/24 05:26 06/12/24 05:26 A&P Assessment and plan (1) Liver cirrhosis: (2) Ascites: (3) Acute kidney injury: (4) Chronic kidney disease: Plan permacath placement and laparoscopic peritoneal dialysis catheter placement The risks and benefits of the procedures, including but not limited to, bleeding, infection, scar, numbness, pain, damage to surrounding structures, pneumothorax thoracostomy tube, conversion to an open procedure, were explained to the patient. He is understanding of the risks and wishes to proceed. Attestations 2 Medical Necessity Statement*: Per primary Coding Level of Care Code Acute Code for g Fwd Diagnoses Liver cirrhosis K74.60 Ascites R18.8 Acute kidney injury N17.9 Chronic kidney disease N18.9
--- NOTE | 2024-06-12 14:22 | P.ANESASSM_ITS ---
Pre-Anesthetic Assessment Height/Weight: Height 1.83 m Weight 126.325 kg Temp Pulse Resp BP Pulse Ox O2 Del Method 97.5 F L 79 18 120/70 91 Room Air 06/12/24 11:21 06/12/24 11:21 06/12/24 11:21 06/12/24 11:21 06/12/24 11:21 06/12/24 13:50 Operation Date: 06/12/24 12:40 Proposed Procedures p Dialysis Catheter Insertion(Not Applicable) - DO josue Wen Laparoscopic Peritoneal Cath Inserti(Not Applicable) - Hever Mobley DO Familial anesthetic complications: none Was Beta Roya taken within 24 hours: N/A Was Clonidine taken within 24 hours: N/A Last intake: Intake Last Liquid Date 06/11/24 Last Liquid Time 23:00 Last Solid Date 06/11/24 Last Solid Time 20:00 Social Tobacco and No alcohol Exam alert, oriented x 3, clear to auscultation bilaterally and regular rate & rhythm CV/HEM Atrial Fibrillation, Coronary Artery Disease, Congestive Heart Failure (ICD in place), Hypertension, Myocardial Infarction and Peripheral Vascular Disease Echo CONCLUSIONS 1-Moderately increased left ventricular cavity size. Severely decreased left ventricular systolic function. Left ventricular ejection fraction is estimated at 20 %. Global left ventricular hypokinesis. Grade IV/IV diastolic dysfunction (irreversible restrictive filling pattern), severely elevated filling pressures. 2-Catheter/pacemaker wire in the right atrial cavity. Mildly increased right atrial size. 3-Moderately thickened mitral valve. Mild mitral annular calcification. No mitral valve stenosis. Mild mitral valve regurgitation. There appeared to be subvalvular echogenic oscillating serpentine structure which could be chordae tendon however cannot rule out vegetation, HARSH will be better modality to assess further 4-Aortic valve is not well-visualized cannot rule out bioprosthetic aortic valve however aortic valve is working in a good condition without any significant stenosis or regurgitation 5-Thickened tricuspid valve. No tricuspid valve stenosis. Mild tricuspid valve regurgitation. 6-There is no pericardial effusion. 7-Right atrial pressure is around 20 mm of mercury. Chronic Renal Failure Hepatic Cirrhosis GI Gastroesophageal Reflux Disease Metabolic Diabetes Mellitus and Morbid Obesity Given insulin for Potassium 5.1 Neuropsych Cerebrovascular Accident JOSEPH Anesthetic Plan ASA status: 4 Anesthesia: General Risk of > 500 ml blood loss (7ml/kg in children): No Medications/Allergies Home Medications Medication Instructions Recorded Confirmed Last Taken Type allopurinol 100 mg tablet 100 mg PO DAILY #90 tabs 08/02/22 06/07/24 Unknown Rx duloxetine 60 mg capsule,delayed 60 mg PO DAILY #90 caps 08/02/22 06/07/24 Unknown Rx release tramadol 37.5 mg-acetaminophen 325 1 tab PO BID PRN Pain #60 tabs 08/02/22 06/07/24 Unknown Rx mg tablet pantoprazole 40 mg tablet,delayed 40 mg PO DAILY 04/11/24 06/07/24 Unknown History release apixaban 5 mg tablet (Eliquis) See Rx Instructions .Route 05/13/24 06/07/24 Unknown Rx .COMPLEX #180 tabs aspirin 81 mg tablet,delayed 81 mg PO DAILY 06/07/24 06/07/24 Unknown History release bumetanide 1 mg tablet 2 mg PO BID 06/07/24 06/07/24 Unknown History dapagliflozin propanediol 10 mg 10 mg PO DAILY 06/07/24 06/07/24 Unknown History tablet (Farxiga) hydralazine 10 mg tablet 10 mg PO BID 06/07/24 06/07/24 Unknown History isosorbide dinitrate 10 mg tablet 10 mg PO TID 06/07/24 06/07/24 Unknown History levothyroxine 25 mcg tablet 25 mcg PO DAILY 06/07/24 06/07/24 Unknown History Allergies Allergy/AdvReac Type Severity Reaction Status Date / Time No Known Allergies Allergy Verified 04/11/24 13:50 Current Medications Generic Name Dose Route Start Last Admin Trade Name Freq PRN Reason Stop Dose Admin Ceftriaxone Sodium 1,000 mg 06/07/24 21:20 06/11/24 20:44 Ceftriaxone 1,000 Mg Sdv IVP 1,000 mg Q24H BRYANT Administration Protocol Cyclobenzaprine HCl 5 mg 06/09/24 10:50 06/11/24 11:46 Cyclobenzaprine 10 Mg Tablet PO 5 mg BID PRN Administration MUSCLE SPASMS Gabapentin 100 mg 06/09/24 13:15 06/12/24 09:20 Gabapentin 100 Mg Capsule PO 100 mg BID BRYANT Administration Sodium Chloride 1,000 mls @ 30 mls/hr 06/12/24 13:45 06/12/24 13:54 Sodium Chloride 0.9% IV 06/13/24 13:44 30 mls/hr .Q24H BRYANT Administration Insulin Human Lispro 0 unit 06/08/24 12:00 06/12/24 12:34 Insulin Lispro 100 Unit/1 Ml SUBCUT Not Given WM&BEDTIME BRYANT Protocol Levothyroxine Sodium 25 mcg 06/08/24 09:00 06/12/24 09:20 Levothyroxine 25 Mcg Tablet PO 25 mcg DAILY BRYANT Administration Oxycodone HCl 5 mg 06/09/24 09:31 06/11/24 11:47 Oxycodone 5 Mg Ir Tab/Cap PO 5 mg Q6H PRN Administration MODERATE PAIN PFSH Anesthesia Medical History CHF exacerbation Ascites Liver cirrhosis Anticoagulation adequate with anticoagulant therapy Leg pain, right Atherosclerotic heart disease of [place] coronary artery without angina pectoris Gout Carotid artery stenosis with cerebral infarction AV malformation of gastrointestinal tract Dyslipidemia Type 2 diabetes mellitus A1c 6.30 March 2020 Ischemic cardiomyopathy Diabetes Hypertension ICD (implantable cardioverter-defibrillator) in place possibly [facility] device Atrial fibrillation CHF (congestive heart failure) EF ~30% CAD (coronary artery disease) Endocarditis CVA (cerebral vascular accident) TIA (transient ischemic attack) Bilateral carotid artery stenosis Patient had a stenting of the left ICA in April 2020 Surgical History 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 Hx of CABG 1997, 5V Hx of aortic valve replacement bioprosthetic, 2012 H/O carotid endarterectomy Family History Father Bleeding disorder Clotting disorder Diabetes CAD (coronary artery disease) Chronic kidney disease (CKD) Lung disease Stroke Other Family history of premature coronary artery disease Hyperlipidemia Hypertension Denies family history of Dementia Suicide Anesthesia complication Cancer Social History Smoking and tobacco/nicotine status: former use of tobacco/nicotine Alcohol intake: current Alcohol intake frequency: holidays/special occasions only Substance/Drug Use: former Date of last use: tried everything in the 60s Housing: House Data Anesthesia 06/12/24 05:26 06/12/24 05:26 Short CBC 06/11/24 06/12/24 Range/Units 05:08 05:26 WBC 7.13 7.84 (3.29-11.43) 10^3/uL Hgb 11.00 L 11.20 L (11.27-16.99) g/dL Hct 33.1 L 33.9 L (37-53) % MCV 113.4 H 114.5 H (82-101) fl Plt Count 250 263 (157-399) 10^3/cmm Neut % (Auto) 71.8 76.6 % Neut # (Auto) 5.12 6.01 (1.8-7.7) 10^3/uL BMP 06/11/24 06/12/24 05:08 05:26 Sodium 133 L 133 L Potassium 5.5 H 5.1 Chloride 93 L 93 L Carbon Dioxide 27 27 BUN 65 H 63 H Creatinine 3.0 H 2.7 H Glucose 104 102 Calcium 9.0 9.0 Cardiac Studies: 2 Echocardiogram 06/08/24 Echocardiogram Limited Views 10/13/20 Echocardiogram Ultrasound 04/01/20
[2024-06-12] MEDS: ceFAZolin 3,000 MG in sodium chloride 0.9% (plus) 100 ML 200 MG IV (14:55)
[2024-06-12 15:10] LABS: Anion Gap 17.8 (5-19); Blood Urea Nitrogen 60 mg/dL (8-23); Calcium 8.9 mg/dL (8.5-10.5); Carbon Dioxide 26 mmol/L (22-29); Chloride 91 mmol/L (98-107); Glucose 104 mg/dL (65-115); Osmolality Calculated 287 mOsm/kg (285-295); Potassium 4.8 mmol/L (3.5-5.1); Sodium 130 mmol/L (136-145)
[2024-06-12 15:19] LABS: Creatinine Clr Calc Pharmacy 35.7864
--- NOTE | 2024-06-12 15:20 | SC_ITS ---
WS: [id number] C-ARM RADIOGRAPHS CHEST; 5 IMAGES HISTORY: surgery COMPARISON: None available. Intraoperative imaging during placement of a RIGHT subclavian dialysis catheter. Catheter tips projec t over the caval atrial junction. Patient is intubated. Median sternotomy wires. SC/C-arm [place] for CVA [id number] IMPRESSION: Intraoperative imaging during dialysis catheter placement.
--- NOTE | 2024-06-12 15:21 | XRR_ITS ---
PROCEDURE INFORMATION: Exam: XR Chest Exam date and time: 06/12/2024 4:36 PM Age: 73 years old Clinical indication: Pain; Angina pectoris; Prior surgery; Surgery date: Post-operative (0-2 days); Surgery type: Indwelling catheter; Additional info: Post surgery TECHNIQUE: Imaging protocol: Radiologic exam of the chest. Views: 1 view. COMPARISON: CR (CHEST, ) 06/07/2024 7:28 PM FINDINGS: Tubes, catheters and devices: Tunneled right IJ dialysis catheter with tip in the distal SVC. Intact multilead left subclavian pacemaker. Lungs: Vascular congestion. Mild perihilar hazy opacities. Pleural spaces: Stable small pleural effusions. No pneumothorax. Heart/Mediastinum: Cardiomegaly. Bones/joints: Sternotomy wires. XR/XR chest 1V portable [id number] IMPRESSION: 1. Dialysis catheter placement without pneumothorax. 2. Stable mild congestive heart failure pattern.
[2024-06-12] MEDS: lidocaine-epi 2% PF 1:200,000 20 mL SDV (15:35)
[2024-06-12] MEDS: heparin, porcine 1,000 unit/mL INJ 10 mL 10000 UNIT HE (15:35)
--- NOTE | 2024-06-12 16:05 | P.OP_ITS ---
Operative Report Date of procedure: June 12, 2024 Pre-op diagnosis: Acute on chronic kidney disease Ascites requiring frequent paracentesis Post-op diagnosis: same Procedure done: Permacath placement Intraoperative interpretation of fluoroscopy Laparoscopic peritoneal dialysis catheter placement Implants: Permacath Peritoneal dialysis catheter Surgeon: Hever Mobley DO Anesthesia: General and Local Estimated blood loss (mL): 5 Complications: None apparent Brief History: This is a very pleasant 73-year-old gentleman with cirrhosis and ascites requiring frequent paracentesis. Presented to the hospital with acute on chronic kidney disease. Nephrology requested PermCath placement for hemodialysis access. The risks and benefits were explained and documented. Procedure: Patient was taken to the operating room and placed supine on the operating room table. All bony prominences were padded. He was given IV sedation and monitored throughout the case by the anesthesia personnel. SCDs were placed and turned on. The arms were tucked to the side. Patient received Vancomycin preoperatively IV. The bilateral chest wall was prepped and draped in usual sterile fashion using chlorhexidine base prep. Sterile drapes were applied. We did procedure pause prior to beginning. An 18 gauge needle was placed in the right internal jugular vein under ultrasound guidance. Dark, nonpulsatile blood was aspirated. A guidewire was placed through the needle centrally toward the atrial/vena caval junction. Fluoroscopy visualized good placement. The needle was removed and the guidewire was clipped to the drape with a hemostat. Further local anesthetic was infiltrated in the soft tissues of the right chest wall and a #15 blade was used to make a vertical skin incision. A #15 blade was used to make a small skin franky around the guidewire insertion area. The permacath tubing was tunneled through the subcutaneous tissues up to the needle insertion location. Serial dilators were used to serially dilate over the guidewire . A dilator with a peel-away sheath was placed over the guidewire and placed centrally. The guidewire was removed as well as the dilator and the permacath was fed into the split sheath. The split sheath was removed. Both ports were aspirated to reveal dark blood and were flushed with saline only as the patient has a heparin allergy. Final fluoroscopy visualization showed no kink in the catheter and the tip of the permacath in the right atrium. There is no obvious pneumothorax.. Both skin incisions were thoroughly irrigated and suctioned dry. Meticulous hemostasis noted. The internal jugular access site was closed with 4-0 Vicryl in a subcuticular fashion. The skin overlying the permacath was closed in a similar manner. The permacath was then sutured into place using 2-0 nylon in a simple interrupted fashion. skin glue was applied as a topical dressing. This was allowed to dry. Patient was wheeled in the operative room and placed on the OR table in supine position. The abdomen was inspected prepped and draped in usual sterile fashion. A timeout was performed all present were in agreement. A Veress needle was placed in the left upper quadrant and intra-abdominal insufflation was brought to 15 mmHg. A 5 mm trocar was then placed into the site using [employer] iew. An 8 mm trocar was then placed just left of the umbilicus and tunneled subcutaneously and then preperitoneal he down to the pelvis. This was done under direct visualization. A peritoneal dialysis catheter was then fed through this trocar down into the pelvis. Both cuffs were noted to be subcutaneously and preperitoneum only. 3500 cc of thin yellow peritoneal fluid was suctioned through the catheter. The catheter appeared in good working order. Ports were removed. 25 g of albumin was given to the patient IV. A 2-0 Ethilon suture was used to suture the catheter in place. Skin was closed using 4-0 Monocryl in a subcutaneous fashion. Dermabond was applied. Patient tolerated the procedure well.
--- NOTE | 2024-06-12 16:44 | SUR.PHASEI ---
16:20 RECEIVED PT FROM OR STAFF. RESPONDS TO VERBAL. SPONTANEOUS RESPIRATIONS, WITH BILATERAL BREATH SOUNDS. PACED RHYTHM ON MONITOR. 16:40 CHEST X RAY DONE . VENTILATING WELL.
--- NOTE | 2024-06-12 16:49 | SUR.PHASEI ---
WARM BLANKETS APPLIED.
--- NOTE | 2024-06-12 17:16 | ANE.PACU2 ---
Inpatient post-anesthesia follow up: Airway intact: Yes Vital signs: Temperature 97.6 F Pulse Rate 70 Respiratory Rate 12 Blood Pressure 126/69 Pulse Oximetry 98 Oxygen Delivery Me thod Nasal Cannula Oxygen Flow Rate 3 Fraction of Inspir ed Oxygen Hydration adequate: Yes Nausea and vomiting: No Pain level: 1 Mental status: Baseline
[2024-06-12] MEDS: heparin 5,000 unit/mL INJ 1 mL 1000 UNIT IV (17:30)
[2024-06-12] MEDS: heparin, porcine 1,000 unit/mL INJ 10 mL 10000 UNIT INTRACATH (17:30)
--- NOTE | 2024-06-12 20:45 | PC.HD ---
Pt arrived to dialysis room from OR with new RIJ tunnelled cath without dressing, skin glue to insertion site. Site cleaned with CHG and dressed with Skin Prep, ROBERTO, and Covaderm dressing. Cath worked well and pt tolerated initial dialysis treatment fairly well, transient asymptomatic hypotension responded well to lowering of machine temp,
[2024-06-12] MEDS: cefTRIAXone 1,000 mg SDV 1000 MG IVP (21:17)
[2024-06-13] VITALS (9 sets, daily range): BP systolic 81–98; BP diastolic 43–61; PULSE 67–96; RESP 17–19; TEMP 36.4–36.6; O2SAT 95–99
[2024-06-13 05:36] LABS: Anion Gap 13.4 (5-19); Blood Urea Nitrogen 50 mg/dL (8-23); Calcium 8.2 mg/dL (8.5-10.5); Carbon Dioxide 29 mmol/L (22-29); Chloride 96 mmol/L (98-107); Creatinine Clr Calc Pharmacy 41.7952; Glucose 224 mg/dL (65-115); Osmolality Calculated 296 mOsm/kg (285-295); Potassium 5.4 mmol/L (3.5-5.1); Sodium 133 mmol/L (136-145)
[2024-06-13 06:31] LABS: Glucose Point of Care 217 mg/dL (70-110)
[2024-06-13] MEDS: levothyroxine 25 mcg Tablet PO (08:50)
[2024-06-13] MEDS: gabapentin 100 mg Capsule PO ×2 (08:50→18:19)
[2024-06-13] MEDS: insulin lispro 100 unit/1 mL SUBCUT ×4 (08:51→21:42)
[2024-06-13] MEDS: oxyCODONE 5 mg IR Tab/Cap PO ×2 (09:26→21:49)
--- NOTE | 2024-06-13 09:26 | P.PN_ITS ---
Subjective 2 Subjective: Status of peritoneal drain and dialysis catheter, full session of dialysis was done yesterday Patient endorsing feeling better Patient has changed his mind and would like to pursue rehab at intermediate Case management notified Patient eating breakfast Patient is stating that he has realized that he is not able to put any weight on his right leg and and he has weakness of his right arm. Vitals/I&O/Wt Last Vital Signs Temp 97.5 F L 06/13/24 07:32 Pulse 67 06/13/24 07:32 Resp 18 06/13/24 07:32 BP 97/48 06/13/24 07:32 Pulse Ox 97 06/13/24 07:32 O2 Del Method Room Air 06/13/24 07:32 O2 Flow Rate 3 06/12/24 17:05 06/12/24 06/13/24 06/13/24 22:59 06:59 14:59 Intake Total 2540.1 / 2540.1 0 / 2540.1 240 / 240 Output Total 1811 / 2561 200 / 2761 Balance 729.1 / -20.9 -200 / -220.9 240 / 240 Weight last 48 hrs Weight 123.468 kg Weight 122.289 kg Weight 126.325 kg Physical Exam 2 Narrative: Right-sided weakness Right-sided hemiplegia with mild improvement in strength Able to eat breakfast on his own Hemodynamically stable Currently on room air Pleasant cooperative GCS 15 no new focal deficit Peritoneal drain in place Mildly distended abdomen nontender Lower extremity mild edema Sarcopenia Protein calorie malnourishment Urinary Catheter Management: Vazquez: Cath Placed During This Visit: yes Reason for Continuing Indwelling Catheter: Accurate Measurement of Urinary Output in Critically Ill Patients Urinary Catheter Date of Insertion: 06/08/24 Urinary Catheter Time of Insertion: 12:10 Data 06/12/24 05:26 06/13/24 04:54 Micro: Microbiology 06/07/24 19:23 Blood Culture - Final Blood NO GROWTH AFTER 5 DAYS 06/07/24 19:20 Blood Culture - Final Blood NO GROWTH AFTER 5 DAYS A&P Assessment and plan (1) Ischemic cardiomyopathy: (2) Chronic systolic (congestive) heart failure: (3) Atrial fibrillation: Qualifiers: Atrial fibrillation type: permanent Qualified Code(s): I48.21 - Permanent atrial fibrillation (4) Peripheral arterial disease: (5) Chronic anticoagulation: (6) Anticoagulation adequate with anticoagulant therapy: (7) Diabetes: (8) Liver cirrhosis: (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: (11) Ascites: (12) Chronic kidney disease: (13) Acute kidney injury: (14) Anemia: Qualifiers: Anemia type: iron deficiency Iron deficiency anemia type: chronic blood loss Qualified Code(s): D50.0 - Iron deficiency anemia secondary to blood loss (chronic) (15) Altered mental status: (16) Acute metabolic encephalopathy: Plan Patient would like to pursue rehab at a intermediate Case management notified Patient will need authorization most likely will stay till next week Will update the patient 1 more time Patient has right-sided weakness from recent stroke Low blood pressure Patient had guarded prognosis with preserved action fraction heart failure, liver cirrhosis and now dialysis dependency Line Up Worker recommended twice a week dialysis set up 3 times a week Patient is agreeable for hospice referral as well at the time of discharge Full code for now Renal dialysis diet Hold antihypertensive regimen Anticoagulating agent can be resumed A-fib without RVR Attestations 2 Medical Necessity Statement*: Awaiting intermediate placement Coding Level of Care Code 43786 Diagnoses Ischemic cardiomyopathy I25.5 Chronic systolic (congestive) heart failure I50.22 Permanent atrial fibrillation I48.21 Atrial fibrillation type: permanent Peripheral arterial disease I73.9 Chronic anticoagulation Z79.01 Anticoagulation adequate with anticoagulant therapy Z79.01 Diabetes E11.9 Liver cirrhosis K74.60 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
[2024-06-13 10:49] LABS: Glucose Point of Care 229 mg/dL (70-110)
--- NOTE | 2024-06-13 11:09 | P.PN_ITS ---
Subjective 2 Subjective: no new c/o Medications: Reviewed: Yes Vitals/I&O/Wt Last Vital Signs Temp 97.5 F L 06/13/24 07:32 Pulse 67 06/13/24 07:32 Resp 18 06/13/24 07:32 BP 97/48 06/13/24 07:32 Pulse Ox 97 06/13/24 07:32 O2 Del Method Room Air 06/13/24 07:32 O2 Flow Rate 3 06/12/24 17:05 06/12/24 06/13/24 06/13/24 22:59 06:59 14:59 Intake Total 2540.1 / 2540.1 0 / 2540.1 240 / 240 Output Total 1811 / 2561 200 / 2761 Balance 729.1 / -20.9 -200 / -220.9 240 / 240 Weight last 48 hrs Weight 123.468 kg Weight 122.289 kg Weight 126.325 kg Physical Exam 2 Narrative: awake , alert S1S2 RRR per report lungs clear per report Distended abdomen + ascites 1 + LE edema Urinary Catheter Management: Vazquez: Cath Placed During This Visit: yes Reason for Continuing Indwelling Catheter: Accurate Measurement of Urinary Output in Critically Ill Patients Urinary Catheter Date of Insertion: 06/08/24 Urinary Catheter Time of Insertion: 12:10 Data 06/14/24 10:03 06/14/24 03:15 Micro: Microbiology 06/07/24 19:23 Blood Culture - Final Blood NO GROWTH AFTER 5 DAYS 06/07/24 19:20 Blood Culture - Final Blood NO GROWTH AFTER 5 DAYS A&P Assessment and plan (1) Acute kidney injury: 1. Acute on CKD stage III: Baseline creatinine in the mid 1 range now has an VEE with a creatinine of 2.8 associated with hyperkalemia and metabolic acidosis. Patient underwent paracentesis 2 days ago. Etiology of VEE likely multifactorial in the setting of prerenal and possible post paracentesis renal dysfunction. 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 Hyperkalemia: Low K diet and monitor, improved 3. Metabolic acidosis: Mild, s/p bicarbonate drip, improved 4. Liver cirrhosis with recurrent ascites and hepatic encephalopathy. 5. Coronary artery disease with prior CABG 6. Cardiomyopathy with ICD placement Overall poor prognosis Evaluated using audiovisual cart. Time spent 40 minutes. Plan per mediicne Attestations 2 Medical Necessity Statement*: per carlottane Coding Level of Care Code Acute Code for Chg Fwd Diagnoses Acute kidney injury N17.9
[2024-06-13] MEDS: heparin, porcine 1,000 unit/mL INJ 10 mL 10000 UNIT INTRACATH (16:10)
[2024-06-13] MEDS: heparin, porcine 1,000 unit/mL INJ 10 mL 1000 UNIT IV (16:10)
[2024-06-13] MEDS: albumin 12.5 GM/50 ML VIAL IV ×2 (16:34→21:34)
[2024-06-13 16:39] LABS: Glucose Point of Care 185 mg/dL (70-110)
[2024-06-13 20:56] LABS: Glucose Point of Care 193 mg/dL (70-110)
--- NOTE | 2024-06-13 21:15 | PC.HD ---
Pt hypotensive as soon as treatment started at 16:12, SBP 90s. Hypotension worsened, SBP 80s, lowest reading 53/39 up to 79/48 on recheck, and pt became symptomatic (felt bad, became nauseated and hot, dyspneic, briefly c/o bilat shoulder pain without radiation, and increased confusion) in spite of trendelenberg, lowered machine temp, no fluid removal, and albumin infusion @2ml/min. Symptoms (except for confusion) resolved but hypotension persisted even after blood returned [address] Contreras and Dr Reyes notified of above. Instructions received from Dr Contreras to terminate treatment. Instructions rec'd from Dr Reyes to return pt to his M/S room and ask his nurse to check his BP again 30 minutes after albumin was infused and call him back. Pt returned to his room at 17:15. Jesica RN in room and report given along with Dr Reyes's instruction to check BP in 30 minutes and call him.
[2024-06-13] MEDS: apixaban 5 mg Tablet PO (21:42)
[2024-06-13] MEDS: cyclobenzaprine 10 mg Tablet 5 MG PO (21:49)
[2024-06-14] VITALS (41 sets, daily range): BP systolic 75–138; BP diastolic 22–95; PULSE 67–72; RESP 11–101; TEMP 36.2–36.6; O2SAT 73–100
[2024-06-14] MEDS: zolpidem 5 mg Tablet PO (00:20)
[2024-06-14 03:32] LABS: Basophils % 0.2 %; Eosinophils # 0.1 10^3/uL (0.0-0.8); Eosinophils % 0.4 %; Lymphocytes # 0.4 10^3/uL (0.8-4.8); Lymphocytes % 3.1 %; Mean Corpuscular HGB Conc 31.8 g/dL (30-55); Mean Corpuscular Hemoglobin 36.5 pg (27-33); Mean Platelet Volume 9.8 fL (7.4-10.4); Monocytes # 1.6 10^3/uL (0.2-0.9); Monocytes % 12.2 %; Neutrophils # 10.53 10^3/uL (1.8-7.7); Neutrophils % 82.5 %; Nucleated Red Blood Cells # 0.2 /100WBC; Nucleated Red Blood Cells % 1.4 %; Platelet Count 171 10^3/cmm (157-399); Red Blood Count 1.67 10^6/uL (3.85-5.65); Red Cell Distribution Width 21.1 % (12.1-15.1); White Blood Count 12.76 10^3/uL (3.29-11.43)
[2024-06-14 03:57] LABS: Hematocrit 19.2 % (37-53)
[2024-06-14 04:01] LABS: Anion Gap 17.1 (5-19); Blood Urea Nitrogen 53 mg/dL (8-23); Calcium 8.4 mg/dL (8.5-10.5); Carbon Dioxide 26 mmol/L (22-29); Chloride 92 mmol/L (98-107); Creatinine Clr Calc Pharmacy 33.4595; Glucose 134 mg/dL (65-115); Osmolality Calculated 286 mOsm/kg (285-295); Potassium 5.1 mmol/L (3.5-5.1); Sodium 130 mmol/L (136-145)
--- NOTE | 2024-06-14 04:29 | CTR_ITS ---
PROCEDURE INFORMATION: Exam: CT Abdomen And Pelvis Without Contrast Exam date and time: 06/14/2024 4:45 AM Age: 73 years old Clinical indication: Abdominal tenderness; Abdominal pain; Additional info: Acute anemia, assess for blood TECHNIQUE: Imaging protocol: Computed tomography of the abdomen and pelvis without contrast. Radiation optimization: All CT scans at this facility use at least one of these dose optimization techniques: automated exposure control; mA and/or kV adjustment per patient size (includes targeted exams where dose is matched to clinical indication); or iterative reconstruction. COMPARISON: CT abdomen pelvis con [id number] 03/31/2020 10:39 PM RADIATION DOSE METRICS: Total DLP (mGy-cm): 1256.27 FINDINGS: Pleural spaces: Bilateral pleural effusions. Compressive atelectasis in the lung bases. Liver: Cirrhotic liver. Indeterminate low-density lesion in the liver. Gallbladder and biliary ducts: Normal. No calcified stones. No ductal dilation. Pancreas: Atrophy of the pancreas. Spleen: Normal. No splenomegaly. Adrenal glands: Normal. No mass. Kidneys and ureters: Normal. No hydronephrosis. Stomach and bowel: Gas and debris within the stomach. Loss of the normal rugal fold pattern. Fluid inferior to stomach. Appendix: No evidence of appendicitis. Intraperitoneal space: Pneumoperitoneum. Large volume of abdominal and pelvic ascites with fluid fluid level. Peritoneal drainage catheter in place. Vasculature: Severe atherosclerotic changes of the abdominal vasculature. Lymph nodes: Unremarkable. No enlarged lymph nodes. Urinary bladder: Unremarkable as visualized. Reproductive: Unremarkable as visualized. Bones/joints: Unremarkable. No acute fracture. Soft tissues: Diffuse anasarca. CT/CT abdomen pelvis [facility] [id number] IMPRESSION: 1. Pneumoperitoneum. Abnormal gas and debris within the stomach. There is surrounding fluid present. This may be the site of perforation. 2. Cirrhotic liver with large volume of abdominal and pelvic ascites. There is a fluid fluid level suggestive of hemorrhagic component. 3. Diffuse anasarca. Moderate bilateral pleural effusions with compressive atelectasis.
[2024-06-14 06:35] LABS: Glucose Point of Care 142 mg/dL (70-110)
--- NOTE | 2024-06-14 06:46 | PC.NURSE ---
Transferred to ICU: Pt Hgb dropped significantly from previous day's draw, Dr. Baldwin ordered abdominal CT with resulted with critical findings (see report). Orders were placed to move the pt to ICU for closer monitoring. Report called by this nurse to FAYE Trujillo. Will notify family.
--- NOTE | 2024-06-14 06:53 | PC.NURSE ---
patient was transferred to ICU bed [address]
--- NOTE | 2024-06-14 07:07 | P.PNCC_ITS ---
Critical Care Event Note Last night I was notified and blood pressure was soft with dialysis and he received a dose of albumin, subsequently not hypotensive but still with soft blood pressure 95/61, gave him additional 12.5 g 25% albumin. He did well overnight without further hypotensive episodes. This morning notified that hemoglobin acutely he is decreased down to 6.1, on review prior hemoglobin 11.2 on 06/12. Held Eliquis. Duloxetine. Requested CT abdomen pelvis. Findings of pneumoperitoneum, abnormal gas and debris within the stomach, surrounding fluid, ascites, cirrhotic liver, layering of blood with intra-abdominal fluid. Anasarca. Moderate bilateral effusions. Discussed with radiologist, she was concerned about possibly perforation, althou gh was not aware that he had had a placement of peritoneal dialysis catheter several days ago, although does state that the appearance of the stomach is abnormal. Possibly inflammatory changes. Started PPI. Requested 2 units RBC for him with transfusion of 1 unit now, follow-up hemoglobins. Moved down to intensive care unit, discussed with surgery radiologist concern peritoneal blood mixed with ascites, concern for possible perforation although here could be in the setting of recent laparoscopy. Per discussion hold off on barium swallow for now, pending surgical assessment. The surgeon request 1 g of tranexamic acid now and additionally an 6 hours. Discussed findings and condition with patient, discussed transient, risk of thrombosis, risk of further acute blood loss anemia, hemorrhagic shock. He verbalized understanding. Signout also provided to the day team. The high probability of a clinically significant, sudden or life threatening deterioration of the patient's [hematologic, hemodynamic] system(s) required my full and direct attention, intervention and personal management. The critical care time is as shown. This time is in addition to time spent performing any reported procedures but includes the following: [x] Data and vital sign review and interpretation [x] Patient assessment, examination and intervention [x] Documentation [x] Medication orders and management Critical Care Time Code activated: No Critical Care Time (min): 35 Additional information about critical care time: 35 minutes critical care time spent on assessment and management patient, review of results, ordering and review of additional testing, review of preceding events, including hospitalist and surgical notes, assessment and discussion with patient, coordination of care and documentation. Coding Level of Care Code Critical Care Time Spent (min) 35
--- NOTE | 2024-06-14 07:42 | PC.NURSE ---
arrived in icu approximately 0700
[2024-06-14] MEDS: tranexamic acid 1,000 MG/100 ML PREMIX 600 MG IV ×3 (07:59→11:12)
[2024-06-14] MEDS: pantoprazole 40 mg SDV IVP ×2 (07:59→17:24)
[2024-06-14] MEDS: piperacillin-tazobactam 3.375 GM in sodium chloride 0.9% (plus) 50 ML IV ×2 (08:00→17:24)
--- NOTE | 2024-06-14 08:00 | P.PN_ITS ---
Subjective 2 Subjective: Patient seen and examined. He was moved into the ICU overnight because he had a drop in his blood pressure and this morning's hemoglobin was below 7 down from [address] of the abdomen pelvis shows fluid fluid levels, indicative of some hemoperitoneum along with his ascites. Abdomen is distended but nontender Vitals/I&O/Wt Last Vital Signs Temp 97.1 F L 06/14/24 06:13 Pulse 71 06/14/24 08:30 Resp 17 06/14/24 08:30 BP 99/47 06/14/24 08:30 Pulse Ox 95 06/14/24 08:13 O2 Del Method Room Air 06/14/24 04:00 O2 Flow Rate 3 06/12/24 17:05 06/13/24 06/14/24 06/14/24 22:59 06:59 14:59 Intake Total 1050 / 1530 1100 / 2630 350 / 350 Output Total 300 / 300 0 / 300 3200 / 3200 Balance 750 / 1230 1100 / 2330 -2850 / -2850 Weight last 48 hrs Weight 278 lb 1 oz Weight 282 lb 3.067 oz Weight 272 lb 3.2 oz Weight 269 lb 9.6 oz Physical Exam 2 Narrative: General: No acute distress, awake alert and oriented x 3 although slightly confused Abdomen: Soft, distended, nontender, positive fluid wave Incisions intact without erythema, exudate or bleeding Urinary Catheter Management: Vazquez: Cath Placed During This Visit: yes Reason for Continuing Indwelling Catheter: Other Urinary Catheter Date of Insertion: 06/08/24 Urinary Catheter Time of Insertion: 12:10 Data 06/14/24 10:03 06/14/24 03:15 A&P Assessment and plan (1) Acute blood loss anemia: (2) Liver cirrhosis: (3) Cirrhosis: (4) Chronic anticoagulation: (5) Acute kidney injury: (6) Chronic kidney disease: Plan Postop day #2 status post laparoscopic peritoneal drain placement and permacath placement. Patient was in dialysis yesterday when I attempted to see the patient Patient does not have a history of AV malformation with lower GI bleed, but he has not had a bowel movement since surgery according to the chart It appears he had some intra-abdominal blood loss after restarting anticoagulation. We did wait 24 hours to restart his Eliquis. Hold Eliquis, 1 g of TXA now followed by a second gram in 1 hour 2 units PRBCs being given No concern for perforation given recent abdominal procedure. However we will get a CT abdomen pelvis with IV and oral contrast to confirm no contrast leakage from the stomach Peritoneal drain may be used to drain ascites as needed daily as needed Medical management per hospitalist Attestations 2 Medical Necessity Statement*: Per primary Coding Level of Care Code Acute Code for Chg Fwd Diagnoses Acute blood loss anemia D62 Liver cirrhosis K74.60 Chronic anticoagulation Z79.01 Acute kidney injury N17.9 Chronic kidney disease N18.9
--- NOTE | 2024-06-14 08:22 | PC.NURSE ---
Dr. Mobley came to bedside, gave v.o. to drain abdominal drain and to not take more than 4L. Stated he was not concerned about the abdomen that the fluid just needs to be drained
--- NOTE | 2024-06-14 08:40 | PC.NURSE ---
Dr. Mobley gave v.o. for patient to eat, Dr. Reyes at bedside at time and agreed
[2024-06-14 08:46] LABS: Folate Level 5.4 ng/mL (4.5-32.2)
[2024-06-14 08:47] LABS: Vitamin B12 1746 pg/mL (232-1245)
[2024-06-14] MEDS: allopurinol 100 mg Tablet PO (08:51)
[2024-06-14] MEDS: gabapentin 100 mg Capsule PO ×2 (08:51→16:13)
[2024-06-14] MEDS: levothyroxine 25 mcg Tablet PO (08:51)
[2024-06-14 09:08] LABS: Glucose Point of Care 97 mg/dL (70-110)
--- NOTE | 2024-06-14 09:15 | CT_ITS ---
WS: [id number] CT ABDOMEN AND PELVIS WITH CONTRAST HISTORY: stomach bleed TECHNIQUE: Imaging performed of the abdomen and pelvis with IV contrast. Single phase imaging of the abdomen. Coronal and sagittal reformats are submitted. All CT scans at [facility] use at [address] one of these dose optimization techniques: automated exposure control; mA and/or kV adjustment per patient size (includes targeted exams where dose is matched to clinical indication); or iterative re construction. IV CONTRAST: Omnipaque 350; 100 mL IV. Oral contrast: Yes. DLP: 1118.70 mGy.cm COMPARISON: Earlier the same day CT abdomen and pelvis without contrast. Lower thorax: Small to moderate-sized bilateral pleural effusions are similar to the study earlier e same day with compressive atelectasis at the lung bases. Heart is mildly enlarged. RIGHT heart defi brillator is noted. No pericardial effusion. Liver/biliary system: Cirrhotic liver. No mass identified within the liver. Gallbladder: Normal. No gallstones or wall thickening. No pericholecystic fluid. Pancreas: Diffusely atrophic. No duct dilatation. Spleen: Spleen is normal size. There is a very faint lucency through the anterior spleen. This is see n best on the axial imaging. No history of trauma. This may be a small splenic laceration versus norm al splenic cleft. Adrenal glands: Normal. Right kidney: Normal. Left kidney: Normal. Aorta: Moderate atherosclerotic plaque. Atherosclerotic plaque throughout the SMA and celiac axis. Th ere are components of stenosis in both the celiac axis and SMA. No thrombus identified. No periaortic hematoma. Lymphadenopathy: None. Free fluid: There is a large amount of ascites throughout the abdomen and pelvis. Hounsfield units ar e variable. There is increased attenuation posteriorly in part may be related to artifact but a hemat ocrit layer should be considered. Hematocrit layer was more obvious on the prior study on earlier the same day. GI tract: Stomach is distended with oral contrast. No mass or ischemia identified. No small bowel obs truction. Cannot confirm ischemic changes. Reidentified are numerous foci of air within the peritoneal cavity which could be related to the rece nt placement of the peritoneal dialysis catheter. The peritoneal dialysis catheter enters the LEFT ab domen with the tip coiled in the pelvis. Abdominal wall: There is marked soft tissue edema and anasarca. Pelvis: Large amount of free fluid in the pelvis. Peritoneal dialysis catheter within the pelvis. Fol ey catheter present in a nondistended urinary bladder. Bones: Unremarkable. CT/CT abdomen pelvis w con* [id number] IMPRESSION: 1. Large amount of ascites. Hounsfield is are elevated suggesting component of hemoperitoneum. 2. Peritoneal dialysis catheter with distal end coiled in the pelvis. 3. No active area of bleeding is identified. 4. There is extensive atherosclerosis aorta with components of chronic stenosi s in this celiac axis and SMA. 5. Small to moderate bilateral pleural effusions are unchanged. 6. There is a very subtle lucency of the spleen which could be a normal develo pmental cleft. If there is a history of trauma this could potentially be a sple mohsen fracture. There is no history of trauma. 7. Pneumoperitoneum is unchanged. This may be related to the recent placement of the peritoneal dialysis catheter. 8. Large amount of soft tissue edema and anasarca. Notified Dereje Reyes MD at 06/14/2024 12:16 PM.
[2024-06-14 10:10] LABS: Reflex FDPQ test REFLEX FDP QUEST TES
[2024-06-14] MEDS: micafungin 100 MG in sodium chloride 0.9% (plus) 100 ML IV (10:11)
[2024-06-14] MEDS: norepinephrine 4 MG/250 ML BAG 7.5 MG IV (10:25)
[2024-06-14 11:02] LABS: INR 1.65 (0.8-1.2)
[2024-06-14 11:04] LABS: Fibrinogen 245 mg/dL (174-498); Partial Thromboplastin Time 37.3 SECONDS (23.9-36.7)
[2024-06-14] MEDS: iohexol 350 mg/mL 500 mL Btl (per mL) IV (11:04)
[2024-06-14 11:11] LABS: Glucose Point of Care 148 mg/dL (70-110)
[2024-06-14] MEDS: insulin lispro 100 unit/1 mL SUBCUT ×2 (11:12→21:11)
--- NOTE | 2024-06-14 11:12 | P.PN_ITS ---
Subjective 2 Subjective: Patient received 2 bags of albumin since his dialysis yesterday after he became hypotensive He was transferred to ICU overnight for hypotension, CT abdomen pelvis showed changes concerning related to intraluminal bleed Patient is getting third bag of TranxeneAmick acid Will get second unit of PRBC He will be kept n.p.o. After discussing with Dr. Mobley we decided to proceed with contrast study CT abdomen pelvis IV with oral, until then patient will remain n.p.o. Visual hallucination, waxing and waning mentation Will need dialysis session Would use Levophed on as-needed basis Patient seems to have guarded prognosis, he is full code I did remind his that patient has cardiomyopathy, liver cirrhosis and now end-stage renal disease, recovering from recent stroke, his last bowel movement was 2 days ago Vitals/I&O/Wt Last Vital Signs Temp 97.1 F L 06/14/24 06:13 Pulse 71 06/14/24 08:30 Resp 17 06/14/24 08:30 BP 99/47 06/14/24 08:30 Pulse Ox 95 06/14/24 08:13 O2 Del Method Room Air 06/14/24 04:00 O2 Flow Rate 3 06/12/24 17:05 06/13/24 06/14/24 06/14/24 22:59 06:59 14:59 Intake Total 1050 / 1530 1100 / 2630 350 / 350 Output Total 300 / 300 0 / 300 3200 / 3200 Balance 750 / 1230 1100 / 2330 -2850 / -2850 Weight last 48 hrs Weight 126.127 kg Weight 128 kg Weight 123.468 kg Weight 122.289 kg Physical Exam 2 Narrative: Patient is able to follow verbal commands Trying to reach out to things in the air Will be redirectable Blood coming out of peritoneal drain Mild tenderness around the incisional site Low blood pressure Right-sided weakness Extremely fatigued and lethargic S1, S2 A-fib without RVR Currently patient is on room air Vazquez catheter in place Dialysis catheter site without any worsening of ecchymosis Peritoneal drain site no active drainage around the insertion site Urinary Catheter Management: Vazquez: Cath Placed During This Visit: yes Reason for Continuing Indwelling Catheter: Other Urinary Catheter Date of Insertion: 06/08/24 Urinary Catheter Time of Insertion: 12:10 Data 06/14/24 10:03 06/14/24 03:15 A&P Assessment and plan (1) Ischemic cardiomyopathy: (2) Chronic systolic (congestive) heart failure: (3) Atrial fibrillation: Qualifiers: Atrial fibrillation type: permanent Qualified Code(s): I48.21 - Permanent atrial fibrillation (4) Peripheral arterial disease: (5) Chronic anticoagulation: (6) Anticoagulation adequate with anticoagulant therapy: (7) Diabetes: (8) Liver cirrhosis: (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 Ryan blood coming out of peritoneal drain Pneumoperitoneum related to recent peritoneal drain placement No active chest pain Paced rhythm Fluctuating mentation Last dose of Eliquis was given 24 hours after peritoneal drain placement which was 10 PM yesterday Requested folate, B12, Requested DIC panel to see if we need FFP to reverse coagulopathy INR is below 1.7 Stomach intraluminal bleed: Added micafungin on top of Zosyn Follow-up with CT abdomen pelvis contra study today Spoke with Dr. Mobley as well Reduced EF cardiomyopathy status post AICD/pacemaker Liver cirrhosis likely related to cardiac etiology Massive ascites Will need drainage on weekly basis through peritoneal drain once bleeding is ruled out Continue ceftriaxone for ascites as prophylaxis End-stage renal disease: Started dialysis in the hospital, patient became hypotensive after dialysis session Fluctuant mentation Metabolic encephalopathy Multifactorial Recovering from acute CVA, cannot go for MRI because of incompatible pacemaker Hold off on Eliquis Continue ICU management Patient is full code N.p.o. for now Guarded prognosis A-fib without RVR Holding off on Eliquis for now Disposition: longterm placement needed Hospice referral also requested at the time of discharge Attestations 2 Medical Necessity Statement*: Continue ICU management Diagnoses Ischemic cardiomyopathy I25.5 Chronic systolic (congestive) heart failure I50.22 Permanent atrial fibrillation I48.21 Atrial fibrillation type: permanent Peripheral arterial disease I73.9 Chronic anticoagulation Z79.01 Anticoagulation adequate with anticoagulant therapy Z79.01 Diabetes E11.9 Liver cirrhosis K74.60 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
[2024-06-14 11:14] LABS: D Dimer 8.62 ug/mLFEU (0-0.59)
[2024-06-14] MEDS: iohexol 350 mg/mL 500 mL Btl (per mL) PO (11:15)
--- NOTE | 2024-06-14 11:43 | PC.OT ---
Pt placed on hold today from OT tx per doctor; will attempt OT tx session again at later time.
--- NOTE | 2024-06-14 11:47 | P.PN_ITS ---
Subjective 2 Subjective: pt transferred to ICU yesterday due to hypotension CT abdomen with question bowel perforation, general surgery following Medications: Reviewed: Yes Vitals/I&O/Wt Last Vital Signs Temp 97.1 F L 06/14/24 06:13 Pulse 71 06/14/24 08:30 Resp 17 06/14/24 08:30 BP 99/47 06/14/24 08:30 Pulse Ox 95 06/14/24 08:13 O2 Del Method Room Air 06/14/24 04:00 O2 Flow Rate 3 06/12/24 17:05 06/13/24 06/14/24 06/14/24 22:59 06:59 14:59 Intake Total 1050 / 1530 1100 / 2630 350 / 350 Output Total 300 / 300 0 / 300 3200 / 3200 Balance 750 / 1230 1100 / 2330 -2850 / -2850 Weight last 48 hrs Weight 126.127 kg Weight 128 kg Weight 123.468 kg Weight 122.289 kg Physical Exam 2 Narrative: Sleeping arousable S1S2 RRR per report lungs clear per report Distended abdomen + ascites Anasarca Urinary Catheter Management: Vazquez: Cath Placed During This Visit: yes Reason for Continuing Indwelling Catheter: Other Urinary Catheter Date of Insertion: 06/08/24 Urinary Catheter Time of Insertion: 12:10 Data 06/14/24 10:03 06/14/24 03:15 A&P Assessment and plan (1) Acute kidney injury: 1. Acute on CKD stage III: Baseline creatinine in the mid 1 range now has an VEE with a creatinine of 2.8 associated with hyperkalemia and metabolic acidosis. Patient underwent paracentesis 2 days ago. Etiology of VEE likely multifactorial in the setting of prerenal and possible post paracentesis renal dysfunction. 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 Hyperkalemia: Low K diet and monitor, improved 3. Metabolic acidosis: Mild, s/p bicarbonate drip, improved 4. Liver cirrhosis with recurrent ascites and hepatic encephalopathy. 5. Coronary artery disease with prior CABG 6. Cardiomyopathy with ICD placement Overall poor prognosis Evaluated using audiovisual cart. Time spent 40 minutes. Plan per mediicne Attestations 2 Medical Necessity Statement*: per mediicne Coding Level of Care Code Acute Code for Chg Fwd Diagnoses Acute kidney injury N17.9
--- NOTE | 2024-06-14 12:26 | XR_ITS ---
WS: [id number] Portable AP supine chest, 06/14/2024 Clinical Data: Post PICC insertion Comparison: Portable chest, 06/12/2024 Findings: The right PICC line enters the superior vena cava and ends in the midportion. The remainder of the chest shows no change. The multiple tubes and wires remain in the same position. The heart an d lungs show no change. XR/XR chest 1V portable [id number] Impression: Satisfactory insertion of right PICC line.
--- NOTE | 2024-06-14 13:56 | PICC.NOTE ---
Triple lumen PICC placed to right basilic vein. Referred to vascular access nurse for PICC placement due to need for vasopressors and blood. Risks and benefits discussed and informed consent obtained from patient . Right arm assessed with right basilic vein measuring 3.6 mm, straight, and apparent best choice for placement. Using sterile technique and MST, right basilic vein accessed x 1 stick. Mid-arm circumference measured 10 cm from right AC 25 cm. Trimmed cath 43 cm with 0 cm external length noted. CXR shows tip in SVC, in satisfactory position for use per radiologist. Line secured with stat-lock. Insertion site covered with Biopatch, gauze, and TSM. Report given to bedside nurse, FAYE Urrutia.
--- NOTE | 2024-06-14 14:33 | PC.SOCIAL ---
IMM Updated Updated pt & family on IMM. No questions voiced. Provided pt a copy. Initialed, dated, & timed copy in chart.
[2024-06-14] MEDS: ALPRAZolam 0.5 mg Tablet PO (16:14)
--- NOTE | 2024-06-14 16:17 | PC.NURSE ---
Patient demanding to leave the hospital, not cooperating with staff. cussing at staff and spouse. Dr. Reyes gave t.o. per MAR
[2024-06-14] MEDS: OLANZapine 10 mg VIAL IM ×2 (16:28→16:30)
[2024-06-14] MEDS: water for injection-sterile 10 ML (17:23)
[2024-06-14 18:15] LABS: Glucose Point of Care 92 mg/dL (70-110)
[2024-06-14] MEDS: HYDROmorphone 1 mg/mL INJ 1 mL 0.5 MG IVP ×2 (19:20→23:43)
--- NOTE | 2024-06-14 20:39 | PC.NURSE ---
Pt c/o pain at start of shift. Pt given PRN medicine (see MAR). Pt repeatedly shouting that he wants to go home and cussing at staff.
[2024-06-14 21:11] LABS: Glucose Point of Care 165 mg/dL (70-110)
[2024-06-14] MEDS: dexmedeTOMIDine 0.9 % NaCL 400 MCG/100 ML PREMIX IV (22:32)
[2024-06-14] MEDS: norepinephrine 4 MG/250 ML BAG 30 MG IV (23:37)
[2024-06-15] VITALS (66 sets, daily range): BP systolic 87–140; BP diastolic 49–100; PULSE 70–76; RESP 2–25; TEMP 36–37.2; O2SAT 86–100
--- NOTE | 2024-06-15 01:28 | PC.NURSE ---
Dr. Castellano contacted to update on pt status. Information given: Pt started shift on , but is now on 10. Pt belly is harder/tighter on one side (left). Pt wincing/showing signs of increased tenderness in abdomen. Concern for bleeding based on previous CBC results and CT scan reports. Dr gave verbal order to take morning labs now to check H&H.
[2024-06-15 01:46] LABS: Basophils % 0.2 %; Eosinophils # 0.2 10^3/uL (0.0-0.8); Eosinophils % 1.4 %; Hematocrit 23.2 % (37-53); Lymphocytes # 0.5 10^3/uL (0.8-4.8); Lymphocytes % 3.9 %; Mean Corpuscular HGB Conc 32.3 g/dL (30-55); Mean Corpuscular Hemoglobin 34.4 pg (27-33); Mean Corpuscular Volume 106.4 fl (82-101); Mean Platelet Volume 9.6 fL (7.4-10.4); Monocytes # 1.5 10^3/uL (0.2-0.9); Neutrophils # 10.15 10^3/uL (1.8-7.7); Neutrophils % 80.7 %; Nucleated Red Blood Cells # 0.1 /100WBC; Nucleated Red Blood Cells % 1.1 %; Platelet Count 174 10^3/cmm (157-399); Red Blood Count 2.18 10^6/uL (3.85-5.65); Red Cell Distribution Width 26.7 % (12.1-15.1); White Blood Count 12.57 10^3/uL (3.29-11.43)
[2024-06-15] MEDS: piperacillin-tazobactam 3.375 GM in sodium chloride 0.9% (plus) 50 ML IV ×3 (01:50→16:34)
[2024-06-15 02:07] LABS: Alanine Aminotransferase 9 U/L (0-41); Albumin Level 3.4 g/dL (3.5-5.2); Alkaline Phosphatase 147 U/L (40-130); Anion Gap 16.5 (5-19); Aspartate Amino Transferase 24 U/L (0-40); Blood Urea Nitrogen 60 mg/dL (8-23); Calcium 8.7 mg/dL (8.5-10.5); Carbon Dioxide 26 mmol/L (22-29); Chloride 92 mmol/L (98-107); Creatinine Clr Calc Pharmacy 29.0527; Globulin 2.3 g/dL (1.3-4.6); Glucose 121 mg/dL (65-115); Osmolality Calculated 286 mOsm/kg (285-295); Potassium 5.5 mmol/L (3.5-5.1); Sodium 129 mmol/L (136-145); Total Bilirubin 1.8 mg/dL (0.15-1.2); Total Protein 5.7 g/dL (6.6-8.7)
[2024-06-15] MEDS: HYDROmorphone 1 mg/mL INJ 1 mL 0.5 MG IVP ×2 (02:59→06:27)
[2024-06-15] MEDS: pantoprazole 40 mg SDV IVP ×2 (05:36→18:25)
[2024-06-15 05:37] LABS: Hematocrit 22.3 % (37-53)
[2024-06-15] MEDS: dexmedeTOMIDine 0.9 % NaCL 400 MCG/100 ML PREMIX 9.46 MCG IV (06:13)
[2024-06-15] MEDS: norepinephrine 4 MG/250 ML BAG 30 MG IV (06:23)
--- NOTE | 2024-06-15 07:40 | PC.NURSE ---
Called Dr. Mobley to give update in patient status. Verbal order received to drain up to 4L from peritoneal drain, daily. Dr. Mobley to assess patient this shift.
[2024-06-15] MEDS: insulin lispro 100 unit/1 mL SUBCUT ×2 (08:25→13:07)
[2024-06-15 08:43] LABS: Glucose Point of Care 148 mg/dL (70-110)
--- NOTE | 2024-06-15 08:47 | P.PN_ITS ---
Subjective 2 Subjective: Patient seen and examined. He is very somnolent and hard to arouse this morning. On Levophed Vitals/I&O/Wt Last Vital Signs Temp 97.7 F 06/16/24 07:15 Pulse 70 06/16/24 08:30 Resp 12 06/16/24 09:49 BP 115/65 06/16/24 08:30 Pulse Ox 99 06/16/24 08:30 O2 Del Method Nasal Cannula 06/16/24 08:30 O2 Flow Rate 1 06/16/24 08:30 06/15/24 06/16/24 06/16/24 22:59 06:59 14:59 Intake Total 875.033 / 1789.720 198.938 / 1988.658 Output Total 450 / 1250 Balance 875.033 / 989.720 -251.062 / 738.658 Weight last 48 hrs Weight 260 lb 11.2 oz Weight 264 lb 8.875 oz Physical Exam 2 Narrative: General: Somnolent, difficult to arouse, not answering questions Abdomen: Distended, nontender, no guarding, positive fluid wave Urinary Catheter Management: Vazquez: Cath Placed During This Visit: yes Reason for Continuing Indwelling Catheter: Accurate Measurement of Urinary Output in Critically Ill Patients Urinary Catheter Date of Insertion: 06/08/24 Urinary Catheter Time of Insertion: 12:10 Data 06/16/24 09:12 06/16/24 03:03 A&P Assessment and plan (1) Acute blood loss anemia: (2) Liver cirrhosis: (3) Cirrhosis: (4) Chronic anticoagulation: (5) Acute kidney injury: (6) Chronic kidney disease: Plan Postop day #3 status post laparoscopic peritoneal drain placement and permacath placement. I have some concern about possible hepatorenal syndrome Peritoneal drain may be used to drain ascites as needed daily as needed Hemodialysis per nephrology Medical management per hospitalist Attestations 2 Medical Necessity Statement*: Per primary Coding Level of Care Code 09171 Diagnoses Acute blood loss anemia D62 Liver cirrhosis K74.60 Chronic anticoagulation Z79.01 Acute kidney injury N17.9 Chronic kidney disease N18.9
[2024-06-15] MEDS: micafungin 100 MG in sodium chloride 0.9% (plus) 100 ML IV (10:40)
--- NOTE | 2024-06-15 10:54 | P.PN_ITS ---
Subjective 2 Subjective: on levophed 8 mcg Medications: Reviewed: Yes Vitals/I&O/Wt Last Vital Signs Temp 98.9 F 06/15/24 10:33 Pulse 70 06/15/24 10:33 Resp 12 06/15/24 10:33 BP 104/61 06/15/24 10:33 Pulse Ox 100 06/15/24 10:33 O2 Del Method Nasal Cannula 06/15/24 08:00 O2 Flow Rate 2 06/15/24 08:00 06/14/24 06/15/24 06/15/24 22:59 06:59 14:59 Intake Total 1814.125 / 2326.500 533.315 / 2859.815 0 / 0 Output Total 220 / 3420 150 / 3570 Balance 1594.125 / -1093.500 383.315 / -710.185 0 / 0 Weight last 48 hrs Weight 120 kg Weight 126.127 kg Weight 128 kg Physical Exam 2 Narrative: awake , alert S1S2 RRR per report lungs clear per report Distended abdomen + ascites 1 + LE edema Urinary Catheter Management: Vazquez: Cath Placed During This Visit: yes Reason for Continuing Indwelling Catheter: Accurate Measurement of Urinary Output in Critically Ill Patients Urinary Catheter Date of Insertion: 06/08/24 Urinary Catheter Time of Insertion: 12:10 Data 06/15/24 05:29 06/15/24 01:41 A&P Assessment and plan (1) Acute kidney injury: 1. Acute on CKD stage III: Baseline creatinine in the mid 1 range now has an VEE with a creatinine of 2.8 associated with hyperkalemia and metabolic acidosis. Patient underwent paracentesis 2 days ago. Etiology of VEE likely multifactorial in the setting of prerenal and possible post paracentesis renal dysfunction. -Noted recurrent Hyperkalemia -pt is not a good penitentiary HD candidate due to advanced liver failure , can attempt HD for volume management and hyperkalemia -s/p tunnelled catheter placed and attempted hD on , but pt didnt tolerate HD well due to hypotension - hold off HD today due to low bps , severe anemia 2. Hyperkalemia: Low K diet and monitor, improved 3. Metabolic acidosis: Mild, s/p bicarbonate drip, improved 4. Liver cirrhosis with recurrent ascites and hepatic encephalopathy 5. Coronary artery disease with prior CABG 6. Cardiomyopathy with ICD placement 7. Anemia , plan for transfusion Overall poor prognosis Evaluated using audiovisual cart. Time spent 40 minutes. Plan per mediicne Attestations 2 Medical Necessity Statement*: per mediicne Coding Level of Care Code Acute Code for Chg Fwd Diagnoses Acute kidney injury N17.9
--- NOTE | 2024-06-15 11:14 | PC.NURSE ---
Dr. Contreras made aware of peritoneal drainage appearing as fresh blood, BP decrease and levophed requirements and respiratory status during rounding.
[2024-06-15] MEDS: calcium gluconate 0.9% NaCL 1 GM/50 ML PREMIX IV ×2 (11:31→13:02)
[2024-06-15] MEDS: sodium bicarbonate 8.4% syr 100 MEQ in dextrose 5% 250 ML 700 MEQ IV (11:40)
[2024-06-15 12:29] LABS: ABG PCO2 45.7 mmHg (35-45); ABG PH Result 7.42 (7.35-7.45); Alveolar-Arterial Oxygen Gradi 2.1 mmHg (5-10); Arterial Blood Gas Hematocrit 24.4 % (42-52); Base Excess ABG 4.8 mmol/L (-2.0-2.0); Blood Gas Allen Test Pos; Blood Gas Operator Identificat GD; Blood Gas Sample Site Radial, right; Blood Gas Sample Type Arterial; Carboxyhemoglobin 1.7 %THgb (0.4-20.1); HCO3 ABG 29.8 mmol/L (22-26); HGB O2 Sat 97.2 % (95-100); Ionized Calcium Level - ABG 1.2 mmol/L (1.1-1.4); Methemoglobin 1.3 % (0.4-1.5); Oxygen Device NC; Oxygen Saturation ABG > 100.0; PO2 FiO2 Ratio Arterial Blood 484; Potassium Level - ABG 4.7 mmol/L (3.5-5.0)
[2024-06-15] MEDS: albumin 25 G/100 ML BAG 60 G IV (12:31)
[2024-06-15 12:37] LABS: Hematocrit 23.5 % (37-53)
[2024-06-15 13:07] LABS: Glucose Point of Care 151 mg/dL (70-110)
--- NOTE | 2024-06-15 14:05 | PC.NURSE ---
Removed 800ml of fluid from peritoneal drain, Fluid appears to be blood with a small amount of peritoneal fluid. Dr. Rowe at bedside gave verbal order not to remove any more fluid this shift.
--- NOTE | 2024-06-15 15:33 | P.PN_ITS ---
Subjective 2 Subjective: Patient is in a stuporous state. He is unable to provide any history. Patient discussed with ICU care team. Patient spouse is bedside later in the day. I met with her. We had extended conversation regarding his current guarded prognosis, multi organ system failure, and plan of care. We discussed his high risk of worsening morbidity as well as high risk of mortality. She is clearly very supportive of the patient. She noted that his prior wish was to remain full code. Will respect his prior wishes. Did recommend that if patient has family or friends that they see him given his critical illness and guarded prognosis. Medications: Reviewed: Yes Vitals/I&O/Wt Last Vital Signs Temp 98.4 F 06/15/24 15:26 Pulse 70 06/15/24 15:26 Resp 12 06/15/24 15:26 BP 139/84 06/15/24 15:26 Pulse Ox 100 06/15/24 15:26 O2 Del Method Nasal Cannula 06/15/24 13:00 O2 Flow Rate 2 06/15/24 13:00 06/15/24 06/15/24 06/15/24 06:59 14:59 22:59 Intake Total 533.315 / 2859.815 838.187 / 838.187 700 / 1538.187 Output Total 150 / 3570 800 / 800 Balance 383.315 / -710.185 38.187 / 38.187 700 / 738.187 Weight last 48 hrs Weight 120 kg Weight 126.127 kg Weight 128 kg Physical Exam 2 Narrative: General: Patient is in a stuporous state. Head: Normocephalic. Atraumatic. EOM intact. Neck: Elevated JVD. Cardiovascular: RRR. No gallops. No murmurs. Lungs: Breath sounds are diminished bilateral bases. No crackles or wheezes. Audible upper airway secretions are noted. Skin: Slightly jaundice appearing. No rashes. Abdomen: Hypoactive bowel sounds. Abdomen is markedly distended. Positive fluid wave. There is a peritoneal drain that drains bloody sanguinous output. Genito Urinary: Vazquez catheter with dark john urine. Rectal: Rectal exam not performed. Extremities: No cyanosis or clubbing. Musculoskeletal: No erythematous joints. Neurological: No no myoclonus. Urinary Catheter Management: Vazquez: Cath Placed During This Visit: yes Reason for Continuing Indwelling Catheter: Accurate Measurement of Urinary Output in Critically Ill Patients Urinary Catheter Date of Insertion: 06/08/24 Urinary Catheter Time of Insertion: 12:10 Data 06/15/24 12:25 06/15/24 01:41 A&P Assessment and plan (1) Shock: Patient remains in shock, likely multifactorial including cardiogenic and hemorrhagic Continue Levophed for MAP goal of 65 mmHg Continuous telemetry monitoring Strict I's and O's Daily weights Goals of care discussed with family (2) Liver cirrhosis: Decompensated liver cirrhosis with ascites Status post peritoneal drain placement complicated by hemoperitoneum Will hold off on further peritoneal drainage for today as to hopefully provide some tamponade to bleed (3) Anemia: Severe anemia likely secondary to blood loss in the peritoneum Start trending hemoglobin every 6 hours Is received 2 units and there is 2 additional units ordered, this will likely worsen his CHF Qualifiers: Anemia type: iron deficiency Iron deficiency anemia type: chronic blood loss Qualified Code(s): D50.0 - Iron deficiency anemia secondary to blood loss (chronic) (4) Congestive heart failure: History of ICD placement, history of ischemic cardiomyopathy Echo with LVEF of 20% Patient is in cardiogenic shock He is requiring further blood which is worsening his hemodynamics He is on vasopressor support which limits diuresis options (5) Acute metabolic encephalopathy: Patient was reportedly agitated much of the night He is currently in a stuporous state ABG obtained to look for CO2 narcosis, ABG largely unremarkable Encourage family participation in care Avoid sedating medications (6) Chronic kidney disease: Chronic kidney disease with suspected production to end-stage renal disease Nephrology is following, appreciate recommendations Continue with albumin infusion (7) Diabetes: Sliding-scale insulin correction (8) CAD (coronary artery disease): Qualifiers: Coronary Disease-Associated Artery/Lesion type: [place] artery [place] vs. transplanted heart: [place] heart Associated angina: without angina Qualified Code(s): I25.10 - Atherosclerotic heart disease of [place] coronary artery without angina pectoris Plan DVT prophylaxis: SCD Attestations 2 Medical Necessity Statement*: Patient requires ongoing hospitalized ice care due to multiorgan system failure. Critical Care Time: The high probability of a clinically significant, sudden or life threatening deterioration of the patient's cardiac, renal, neuro, endocrine, hematologic, hepatic system(s) required my full and direct attention, intervention and personal management. The critical care time is as shown. This time is in addition to time spent performing any reported procedures but includes the following: [x] Data and vital sign review and interpretation [x] Patient assessment, examination and intervention [x] Documentation [x] Medication orders and management Critical Care Time (min): 90 Coding Level of Care Code Acute Code for Chg Fwd Diagnoses Shock R57.9 Liver cirrhosis K74.60 Iron deficiency anemia due to chronic blood loss D50.0 Anemia type: iron deficiency Iron deficiency anemia type: chronic blood loss Congestive heart failure I50.9 Acute metabolic encephalopathy G93.41 Chronic kidney disease N18.9 Diabetes E11.9 Coronary artery disease involving [place] coronary artery of [place] heart without angina pectoris I25.10 Coronary Disease-Associated Artery/Lesion type: [place] artery [place] vs. transplanted heart: [place] heart Associated angina: without angina
[2024-06-15] MEDS: atropine 1% op soln 2 mL Btl 2 DROP SUBLINGUAL (16:35)
[2024-06-15] MEDS: norepinephrine 4 MG/250 ML BAG 15 MG IV (17:53)
[2024-06-15 18:21] LABS: Glucose Point of Care 123 mg/dL (70-110)
[2024-06-15 21:39] LABS: Glucose Point of Care 126 mg/dL (70-110)
[2024-06-15 21:44] LABS: Hematocrit 28.1 % (37-53)
[2024-06-16] VITALS (99 sets, daily range): BP systolic 89–134; BP diastolic 44–83; PULSE 69–77; RESP 10–33; TEMP 36.2–37.2; O2SAT 74–100
[2024-06-16] MEDS: piperacillin-tazobactam 3.375 GM in sodium chloride 0.9% (plus) 50 ML IV ×3 (02:13→17:35)
[2024-06-16] MEDS: albumin 25 G/100 ML BAG 60 G IV ×3 (02:18→18:03)
[2024-06-16 04:19] LABS: Basophils % 0.3 %; Eosinophils # 0.3 10^3/uL (0.0-0.8); Eosinophils % 3.1 %; Hematocrit 26.1 % (37-53); Lymphocytes # 0.3 10^3/uL (0.8-4.8); Lymphocytes % 3.2 %; Mean Corpuscular HGB Conc 32.2 g/dL (30-55); Mean Corpuscular Hemoglobin 32.2 pg (27-33); Mean Platelet Volume 10.3 fL (7.4-10.4); Monocytes # 0.7 10^3/uL (0.2-0.9); Monocytes % 8.2 %; Neutrophils # 7.62 10^3/uL (1.8-7.7); Nucleated Red Blood Cells % 0.4 %; Platelet Count 149 10^3/cmm (157-399); Red Blood Count 2.61 10^6/uL (3.85-5.65); Red Cell Distribution Width 26.6 % (12.1-15.1); White Blood Count 9.07 10^3/uL (3.29-11.43)
[2024-06-16 04:46] LABS: Alanine Aminotransferase 6 U/L (0-41); Albumin Level 3.4 g/dL (3.5-5.2); Alkaline Phosphatase 129 U/L (40-130); Aspartate Amino Transferase 23 U/L (0-40); Blood Urea Nitrogen 57 mg/dL (8-23); Calcium 8.7 mg/dL (8.5-10.5); Carbon Dioxide 27 mmol/L (22-29); Chloride 92 mmol/L (98-107); Globulin 1.8 g/dL (1.3-4.6); Glucose 105 mg/dL (65-115); Magnesium 2.2 mg/dL (1.7-2.3); Osmolality Calculated 288 mOsm/kg (285-295); Phosphorus 4.2 mg/dL (2.5-4.5); Sodium 131 mmol/L (136-145); Total Protein 5.2 g/dL (6.6-8.7)
[2024-06-16 04:50] LABS: Anion Gap 17.1 (5-19); Potassium 5.1 mmol/L (3.5-5.1)
[2024-06-16 04:55] LABS: Procalcitonin 0.28 ng/mL (0-0.5)
[2024-06-16] MEDS: pantoprazole 40 mg SDV IVP ×2 (05:29→17:35)
[2024-06-16 07:10] LABS: Glucose Point of Care 124 mg/dL (70-110)
[2024-06-16 09:17] LABS: Hematocrit 26.8 % (37-53)
[2024-06-16] MEDS: micafungin 100 MG in sodium chloride 0.9% (plus) 100 ML IV (09:40)
[2024-06-16] MEDS: gabapentin 100 mg Capsule PO ×2 (09:40→17:35)
[2024-06-16] MEDS: levothyroxine 25 mcg Tablet PO (09:40)
[2024-06-16] MEDS: HYDROmorphone 1 mg/mL INJ 1 mL 0.5 MG IVP (09:49)
--- NOTE | 2024-06-16 09:57 | PM.PN ---
Subjective Subjective: ON 2 MCG OF LEVOPHED Medications: Reviewed: Yes Vitals/I&O/Wt Last Vital Signs Temp 97.7 F 06/16/24 07:15 Pulse 70 06/16/24 08:30 Resp 12 06/16/24 09:49 BP 115/65 06/16/24 08:30 Pulse Ox 99 06/16/24 08:30 O2 Del Method Nasal Cannula 06/16/24 08:30 O2 Flow Rate 1 06/16/24 08:30 06/15/24 06/16/24 06/16/24 22:59 06:59 14:59 Intake Total 875.033 / 1789.720 198.938 / 1988.658 Output Total 450 / 1250 Balance 875.033 / 989.720 -251.062 / 738.658 Weight last 48 hrs Weight 118.252 kg Weight 120 kg Physical Exam Narrative: awake , alert S1S2 RRR per report lungs clear per report Distended abdomen + ascites 1 + LE edema Urinary Catheter Management: Vazquez: Cath Placed During This Visit: yes Reason for Continuing Indwelling Catheter: Accurate Measurement of Urinary Output in Critically Ill Patients Urinary Catheter Date of Insertion: 06/08/24 Urinary Catheter Time of Insertion: 12:10 Data 06/16/24 09:12 06/16/24 03:03 A&P Assessment and plan (1) Acute kidney injury: 1. Acute on CKD stage III: Baseline creatinine in the mid 1 range now has an VEE with a creatinine of 2.8 associated with hyperkalemia and metabolic acidosis. Patient underwent paracentesis 2 days ago. Etiology of VEE likely multifactorial in the setting of prerenal and possible post paracentesis renal dysfunction. 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 Hyperkalemia: Low K diet and monitor, improved 3. Metabolic acidosis: Mild, s/p bicarbonate drip, improved 4. Liver cirrhosis with recurrent ascites and hepatic encephalopathy 5. Coronary artery disease with prior CABG 6. Cardiomyopathy with ICD placement 7. Anemia , s/p transfusion Overall poor prognosis Evaluated using audiovisual cart. Time spent 40 minutes. Plan per mediicne Attestations Medical Necessity Statement*: per mediicne Coding Level of Care Code Acute Code for Chg Fwd Diagnoses Acute kidney injury N17.9
--- NOTE | 2024-06-16 10:50 | P.PN_ITS ---
Subjective 2 Subjective: Patient seen and examined. He is awake and alert this morning. Denies any abdominal pain. Only on 2 mcg of Levophed Vitals/I&O/Wt Last Vital Signs Temp 97.7 F 06/16/24 07:15 Pulse 70 06/16/24 08:30 Resp 12 06/16/24 09:49 BP 115/65 06/16/24 08:30 Pulse Ox 99 06/16/24 08:30 O2 Del Method Nasal Cannula 06/16/24 08:30 O2 Flow Rate 1 06/16/24 08:30 06/15/24 06/16/24 06/16/24 22:59 06:59 14:59 Intake Total 875.033 / 1789.720 198.938 / 1988.658 Output Total 450 / 1250 Balance 875.033 / 989.720 -251.062 / 738.658 Weight last 48 hrs Weight 260 lb 11.2 oz Weight 264 lb 8.875 oz Physical Exam 2 Narrative: General: Awake alert and oriented x 3 Abdomen: Distended, nontender, no guarding, positive fluid wave Urinary Catheter Management: Vazquez: Cath Placed During This Visit: yes Reason for Continuing Indwelling Catheter: Accurate Measurement of Urinary Output in Critically Ill Patients Urinary Catheter Date of Insertion: 06/08/24 Urinary Catheter Time of Insertion: 12:10 Data 06/16/24 09:12 06/16/24 03:03 A&P Assessment and plan (1) Acute blood loss anemia: (2) Liver cirrhosis: (3) Cirrhosis: (4) Chronic anticoagulation: (5) Acute kidney injury: (6) Chronic kidney disease: Plan Postop day #4 status post laparoscopic peritoneal drain placement and permacath placement. I have some concern about possible hepatorenal syndrome okay for restarting Eliquis if repeat hemoglobin stable Peritoneal drain may be used to drain ascites as needed daily as needed Hemodialysis per nephrology Medical management per hospitalist Attestations 2 Medical Necessity Statement*: Per primary Coding Level of Care Code Acute Code for Chg Fwd Diagnoses Acute blood loss anemia D62 Liver cirrhosis K74.60 Chronic anticoagulation Z79.01 Acute kidney injury N17.9 Chronic kidney disease N18.9
[2024-06-16 12:19] LABS: Glucose Point of Care 109 mg/dL (70-110)
--- NOTE | 2024-06-16 15:13 | P.PN_ITS ---
Subjective 2 Subjective: Patient is awake and alert, much improved from yesterday's neurological status. He is conversational. He denies fevers or chills. Endorses appetite would like to try some oral intake today. Family friend is bedside and supportive. Discussed plan of care. Medications: Reviewed: Yes Vitals/I&O/Wt Last Vital Signs Temp 98.9 F 06/16/24 13:30 Pulse 70 06/16/24 14:56 Resp 25 H 06/16/24 14:15 BP 103/49 06/16/24 14:15 Pulse Ox 91 06/16/24 14:15 O2 Del Method Nasal Cannula 06/16/24 14:15 O2 Flow Rate 1 06/16/24 14:15 06/16/24 06/16/24 06/16/24 06:59 14:59 22:59 Intake Total 198.938 / 1988.658 700 / 700 Output Total 450 / 1750 Balance -251.062 / 238.658 700 / 700 Weight last 48 hrs Weight 118.252 kg Weight 120 kg Physical Exam 2 Narrative: General: Patient is awake and alert. Head: Normocephalic. Atraumatic. EOM intact. Neck: Elevated JVD. Cardiovascular: RRR. No gallops. No murmurs. Lungs: Breath sounds remain diminished in bilateral bases. No crackles or wheezes. On supplemental oxygen support. Skin: Slightly jaundice appearing, similar to prior exam. No rashes. Abdomen: Hypoactive bowel sounds. Abdomen remains distended. Positive fluid wave. Peritoneal drain present. Genito Urinary: Vazquez catheter with john urine. Rectal: Rectal exam not performed. Extremities: No cyanosis or clubbing. Musculoskeletal: No erythematous joints. Neurological: No no myoclonus. Urinary Catheter Management: Vazquez: Cath Placed During This Visit: yes Reason for Continuing Indwelling Catheter: Accurate Measurement of Urinary Output in Critically Ill Patients Urinary Catheter Date of Insertion: 06/08/24 Urinary Catheter Time of Insertion: 12:10 Data 06/16/24 09:12 06/16/24 03:03 A&P Assessment and plan (1) Shock: Patient remains in shock Continue Levophed for MAP goal of 65 mmHg, vasopressor requirement improving Continuous telemetry monitoring Strict I's and O's Daily weights (2) Liver cirrhosis: Decompensated liver cirrhosis with ascites Status post peritoneal drain placement complicated by hemoperitoneum which seems improved Proceed to drain 1 to 2 L from peritoneal cavity today pending hemodynamic response (3) Anemia: Severe anemia likely secondary to blood loss in the peritoneum Status post 4 packed red blood cells Hemoglobin seems to have stabilized Continue trending hemoglobin, transfuse if necessary Qualifiers: Anemia type: iron deficiency Iron deficiency anemia type: chronic blood loss Qualified Code(s): D50.0 - Iron deficiency anemia secondary to blood loss (chronic) (4) Congestive heart failure: History of ICD placement, history of ischemic cardiomyopathy Echo with LVEF of 20% Patient is in cardiogenic shock Continue Levophed support Volume control with dialysis and/or diuresis if hemodynamics allow (5) Acute metabolic encephalopathy: Mentation is markedly improved today, he remains high risk for delirium and persistent encephalopathy Family/friends is participating in care Avoid sedating medications (6) Chronic kidney disease: Chronic kidney disease with suspected production to end-stage renal disease Nephrology is following, appreciate recommendations Defer dialysis management to nephrology (7) Diabetes: Sliding-scale insulin correction Trial of diet today (8) CAD (coronary artery disease): Qualifiers: Coronary Disease-Associated Artery/Lesion type: [place] artery [place] vs. transplanted heart: [place] heart Associated angina: without angina Qualified Code(s): I25.10 - Atherosclerotic heart disease of [place] coronary artery without angina pectoris Plan DVT prophylaxis: SCD Attestations 2 Medical Necessity Statement*: Patient remains critically ill requiring ongoing hospitalized care for vasopressor support, IV antibiotics, nephrology care, dialysis, serial exams, general surgery expertise, and supportive care. Critical Care Time: The high probability of a clinically significant, sudden or life threatening deterioration of the patient's cardiac, renal, neuro, endocrine, hematologic, hepatic system(s) required my full and direct attention, intervention and personal management. The critical care time is as shown. This time is in addition to time spent performing any reported procedures but includes the following: [x] Data and vital sign review and interpretation [x] Patient assessment, examination and intervention [x] Documentation [x] Medication orders and management Critical Care Time (min): 45 Coding Level of Care Code Acute Code for Chg Fwd Diagnoses Shock R57.9 Liver cirrhosis K74.60 Iron deficiency anemia due to chronic blood loss D50.0 Anemia type: iron deficiency Iron deficiency anemia type: chronic blood loss Congestive heart failure I50.9 Acute metabolic encephalopathy G93.41 Chronic kidney disease N18.9 Diabetes E11.9 Coronary artery disease involving [place] coronary artery of [place] heart without angina pectoris I25.10 Coronary Disease-Associated Artery/Lesion type: [place] artery [place] vs. transplanted heart: [place] heart Associated angina: without angina
--- NOTE | 2024-06-16 15:19 | PC.NURSE ---
Verbal order from Dr. Rowe not to remove peritoneal fluid due to hypotension.
[2024-06-16 18:09] LABS: Glucose Point of Care 185 mg/dL (70-110)
[2024-06-16] MEDS: insulin lispro 100 unit/1 mL SUBCUT ×2 (18:12→20:40)
[2024-06-16 20:43] LABS: Glucose Point of Care 160 mg/dL (70-110)
[2024-06-16] MEDS: norepinephrine 4 MG/250 ML BAG 7.5 MG IV (22:42)
[2024-06-17] VITALS (72 sets, daily range): BP systolic 89–122; BP diastolic 51–82; PULSE 50–82; RESP 10–30; TEMP 36.1–36.9; O2SAT 85–100; BMI 36.9
[2024-06-17] MEDS: piperacillin-tazobactam 3.375 GM in sodium chloride 0.9% (plus) 50 ML IV ×3 (00:37→17:33)
[2024-06-17] MEDS: albumin 25 G/100 ML BAG 60 G IV ×3 (02:03→20:34)
[2024-06-17 04:15] LABS: Basophils % 0.4 %; Eosinophils # 0.2 10^3/uL (0.0-0.8); Eosinophils % 1.7 %; Hematocrit 25.3 % (37-53); Lymphocytes # 0.3 10^3/uL (0.8-4.8); Lymphocytes % 3.6 %; Mean Corpuscular HGB Conc 31.2 g/dL (30-55); Mean Corpuscular Hemoglobin 32.4 pg (27-33); Mean Corpuscular Volume 103.7 fl (82-101); Monocytes # 1.1 10^3/uL (0.2-0.9); Monocytes % 11.9 %; Neutrophils # 7.73 10^3/uL (1.8-7.7); Neutrophils % 81.3 %; Nucleated Red Blood Cells # 0.1 /100WBC; Nucleated Red Blood Cells % 0.7 %; Platelet Count 138 10^3/cmm (157-399); Red Blood Count 2.44 10^6/uL (3.85-5.65); Red Cell Distribution Width 26.5 % (12.1-15.1)
[2024-06-17 04:34] LABS: Alanine Aminotransferase < 5 U/L (0-41); Albumin Level 3.8 g/dL (3.5-5.2); Alkaline Phosphatase 125 U/L (40-130); Aspartate Amino Transferase 21 U/L (0-40); Blood Urea Nitrogen 60 mg/dL (8-23); Carbon Dioxide 26 mmol/L (22-29); Chloride 91 mmol/L (98-107); Creatinine Clr Calc Pharmacy 29.9833; Globulin 1.9 g/dL (1.3-4.6); Glucose 99 mg/dL (65-115); Magnesium 2.2 mg/dL (1.7-2.3); Osmolality Calculated 285 mOsm/kg (285-295); Phosphorus 4.1 mg/dL (2.5-4.5); Sodium 129 mmol/L (136-145); Total Bilirubin 1.8 mg/dL (0.15-1.2); Total Protein 5.7 g/dL (6.6-8.7)
[2024-06-17 04:35] LABS: Anion Gap 17.1 (5-19); Potassium 5.1 mmol/L (3.5-5.1)
[2024-06-17] MEDS: pantoprazole 40 mg SDV IVP ×2 (05:28→17:32)
[2024-06-17 07:51] LABS: Glucose Point of Care 97 mg/dL (70-110)
[2024-06-17] MEDS: gabapentin 100 mg Capsule PO ×2 (08:05→17:33)
[2024-06-17] MEDS: levothyroxine 25 mcg Tablet PO (08:05)
[2024-06-17] MEDS: micafungin 100 MG in sodium chloride 0.9% (plus) 100 ML IV (08:57)
--- NOTE | 2024-06-17 10:17 | P.PN_ITS ---
Subjective 2 Subjective: on levophed 2 MCG on 2L NC Medications: Reviewed: Yes Vitals/I&O/Wt Last Vital Signs Temp 96.9 F L 06/17/24 09:17 Pulse 70 06/17/24 08:30 Resp 18 06/17/24 08:30 BP 109/57 06/17/24 08:30 Pulse Ox 94 06/17/24 08:23 O2 Del Method Nasal Cannula 06/17/24 08:23 O2 Flow Rate 2 06/17/24 08:23 06/16/24 06/17/24 06/17/24 22:59 06:59 14:59 Intake Total 1214.812 / 1973.937 150 / 2123.937 360 / 360 Output Total 450 / 450 250 / 700 Balance 764.812 / 1523.937 -100 / 1423.937 360 / 360 Weight last 48 hrs Weight 123.5 kg Weight 118.252 kg Physical Exam 2 Narrative: awake , alert S1S2 RRR per report lungs clear per report Distended abdomen + ascites 1 + LE edema Urinary Catheter Management: Vazquez: Cath Placed During This Visit: yes Reason for Continuing Indwelling Catheter: Accurate Measurement of Urinary Output in Critically Ill Patients Urinary Catheter Date of Insertion: 06/08/24 Urinary Catheter Time of Insertion: 12:10 Data 06/17/24 03:48 06/17/24 03:48 A&P Assessment and plan (1) Acute kidney injury: 1. Acute on CKD stage III: Baseline creatinine in the mid 1 range now has an VEE with a creatinine of 2.8 associated with hyperkalemia and metabolic acidosis. Patient underwent paracentesis 2 days ago. Etiology of VEE likely multifactorial in the setting of prerenal and possible post paracentesis renal dysfunction. 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 Hyperkalemia: Low K diet and monitor, improved 3. Metabolic acidosis: Mild, s/p bicarbonate drip, improved 4. Liver cirrhosis with recurrent ascites and hepatic encephalopathy 5. Coronary artery disease with prior CABG 6. Cardiomyopathy with ICD placement 7. Anemia , s/p transfusion Overall poor prognosis Evaluated using audiovisual cart. Time spent 40 minutes. Plan per mediicne Attestations 2 Medical Necessity Statement*: per mediicne Coding Level of Care Code Acute Code for Chg Fwd Diagnoses Acute kidney injury N17.9
[2024-06-17 11:51] LABS: Glucose Point of Care 124 mg/dL (70-110)
--- NOTE | 2024-06-17 12:24 | PC.SOCIAL ---
IMM Update pg 2 of IMM updated and reviewed w/ patient. Copy provided and copy dated, initialed and placed in chart.
--- NOTE | 2024-06-17 12:50 | P.PN_ITS ---
Subjective 2 Subjective: He states he is doing all right. He has not been up very much. He states his goal is to be able to walk again. He sometimes goes off on tangents, started speaking about a side door in his room during the conversation with myself and his nurse. When asking if he was speaking about a wait for his to enter to visit him, he stated never mind . Vitals/I&O/Wt Last Vital Signs Temp 96.9 F L 06/17/24 09:17 Pulse 70 06/17/24 10:15 Resp 19 H 06/17/24 10:15 BP 114/61 06/17/24 10:15 Pulse Ox 95 06/17/24 10:00 O2 Del Method Nasal Cannula 06/17/24 08:23 O2 Flow Rate 2 06/17/24 08:23 06/16/24 06/17/24 06/17/24 22:59 06:59 14:59 Intake Total 1214.812 / 1973.937 150 / 2123.937 448.125 / 448.125 Output Total 450 / 450 250 / 700 Balance 764.812 / 1523.937 -100 / 1423.937 448.125 / 448.125 Weight last 48 hrs Weight 123.5 kg Weight 118.252 kg Physical Exam 2 Const: COMMON NORMALS: alert GENERAL APPEARANCE: cooperative O RIENTATION/CONSCIOUSNESS: Yes awake HENMT: COMMON NORMALS: oropharynx normal Neck/C-Spine: COMMON NORMALS: no JVD Resp: COMMON NORMALS: normal respiratory effort and clear to auscultation bilaterally AUSCULTATION: clear to auscultation bilaterally Cardio: COMMON NORMALS: no JVD, regular rhythm, S1 normal heart sound present, S2 normal heart sound present and No murmurs present (Cardio) RHYTHM: regular rhythm HEART SOUNDS: S1 normal heart sound present and S2 normal heart sound present GI: COMMON NORMALS: Normal to inspection, nondistended, normoactive bowel sounds present, Soft to palpation and non-tender PALPATION: Yes Soft to palpation Extremity: COMMON NORMALS: no joint enlargement and no pedal edema Neuro: COMMON NORMALS: moves all extremities SENSORIUM/ORIENTATION: Yes alert Skin: COMMON NORMALS: no rashes or lesions noted GENERAL SKIN EXAM: no rashes or lesions noted Urinary Catheter Management: Vazquez: Cath Placed During This Visit: yes Reason for Continuing Indwelling Catheter: Accurate Measurement of Urinary Output in Critically Ill Patients Urinary Catheter Date of Insertion: 06/08/24 Urinary Catheter Time of Insertion: 12:10 Data 06/17/24 03:48 06/17/24 03:48 A&P Assessment and plan (1) Shock: Reviewed vitals, CBC, CMP, magnesium, discussed with nursing staff, has been weaning of pressor and is so far coming off Levophed. Monitor blood pressure. Risk of instability with having to drain peritoneal dialysate which has not been drained over past couple of days. Levophed on standby. Albumin infusion if needed. Discussed with case specialist. He is also being evaluated for consideration of LTAC He would like to resume solid foods. He has been swallowing liquids without any problems. Will give trial of conscious carbohydrate dialysis diet. Empirically on Zosyn, micafungin. On review of urine culture, Pseudomonas growing in urine. Blood culture negative. Continue Levophed for MAP goal of 65 mmHg, vasopressor requirement improving Continuous telemetry monitoring Strict I's and O's Daily weights (2) Anemia: Reviewed hemoglobin, platelets. Hemoglobin further decreased down to 7.9. Continue to hold Eliquis. Hold duloxetine. Tramadol. Severe anemia likely secondary to blood loss in the peritoneum Status post 4 packed red blood cells Continue trending hemoglobin, transfuse if necessary Qualifiers: Anemia type: iron deficiency Iron deficiency anemia type: chronic blood loss Qualified Code(s): D50.0 - Iron deficiency anemia secondary to blood loss (chronic) (3) Liver cirrhosis: Decompensated liver cirrhosis with ascites Status post peritoneal drain placement complicated by hemoperitoneum which seems improved Proceed to drain 1 to 2 L from peritoneal cavity today pending hemodynamic response (4) Congestive heart failure: Resume peritoneal dialysis. History of ICD placement, history of ischemic cardiomyopathy Echo with LVEF of 20% Patient is in cardiogenic shock Continue Levophed support Volume control with dialysis and/or diuresis if hemodynamics allow (5) Acute metabolic encephalopathy: Resume peritoneal dialysis. Mentation overall improved, but does go off on tangents occasionally. Avoid sedating medications (6) Chronic kidney disease: Resume peritoneal dialysis. Chronic kidney disease with suspected production to end-stage renal disease. Nephrology is following, appreciate recommendations Defer dialysis management to nephrology (7) Diabetes: Sliding-scale insulin correction Trial of diet today (8) CAD (coronary artery disease): Qualifiers: Coronary Disease-Associated Artery/Lesion type: [place] artery [place] vs. transplanted heart: [place] heart Associated angina: without angina Qualified Code(s): I25.10 - Atherosclerotic heart disease of [place] coronary artery without angina pectoris Plan DVT prophylaxis: SCD Attestations 2 Medical Necessity Statement*: Continue admission for assessment management of improving shock, monitor for risk of further hypotension with drainage of peritoneal dialysis and gentleman with underlying liver cirrhosis, ascites, intra-abdominal bleeding. Coding Level of Care Code Critical Care >/= 30 minutes Critical care time (in minutes): 35 The high probability of a clinically significant, sudden or life threatening deterioration, as referenced in this documentation, required my full and direct attention, intervention and personal management. The critical care time shown is in addition to time spent performing any reported separately billable procedures and includes the following: [x] Data and vital sign review and interpretation [x ] Patient assessment, examination and intervention [x] Medication orders and management [x] Patient/Family updates as able [x] Care Coordination and Documentation. Diagnoses Shock R57.9 Iron deficiency anemia due to chronic blood loss D50.0 Anemia type: iron deficiency Iron deficiency anemia type: chronic blood loss Liver cirrhosis K74.60 Congestive heart failure I50.9 Acute metabolic encephalopathy G93.41 Chronic kidney disease N18.9 Diabetes E11.9 Coronary artery disease involving [place] coronary artery of [place] heart without angina pectoris I25.10 Coronary Disease-Associated Artery/Lesion type: [place] artery [place] vs. transplanted heart: [place] heart Associated angina: without angina
[2024-06-17 17:12] LABS: Glucose Point of Care 160 mg/dL (70-110)
[2024-06-17] MEDS: acetaminophen 325 mg Tablet 650 MG PO (17:33)
[2024-06-17] MEDS: insulin lispro 100 unit/1 mL SUBCUT (17:33)
--- NOTE | 2024-06-17 18:59 | PC.NURSE ---
2,000 mL of sanguineous fluid drained from abdominal drain.
[2024-06-17 20:14] LABS: Glucose Point of Care 140 mg/dL (70-110)
--- NOTE | 2024-06-17 21:02 | PC.NURSE ---
Draining peritoneal drain: 500ml of sanguineous fluid was drained from peritoneal access drain. Dr. Rowe was contacted regarding color of output and gave telephone instructions to continue to drain up to 2L from peritoneal access through the night as long as BP remains stable, but if BP drops to hold off on further removal.
--- NOTE | 2024-06-17 22:10 | PC.NURSE ---
Drained peritoneal: Drained 500mL of sanguineous fluid from peritoneal drain, BP stable.
--- NOTE | 2024-06-17 23:08 | PC.NURSE ---
Drained peritoneal: 500mL of sanguineous fluid was drained from peritoneal drain, BP stable.
[2024-06-18] VITALS (49 sets, daily range): BP systolic 93–130; BP diastolic 50–77; PULSE 61–110; RESP 8–33; TEMP 35.9–36.9; O2SAT 66–100; BMI 35.7
--- NOTE | 2024-06-18 00:04 | PC.NURSE ---
Drained peritoneal: 500mL of sanguineous fluid was drained from peritoneal drain totaling 2L this shift. BP remains stable on no pressors.
[2024-06-18] MEDS: piperacillin-tazobactam 3.375 GM in sodium chloride 0.9% (plus) 50 ML IV ×3 (01:58→16:44)
[2024-06-18 04:12] LABS: Basophils % 0.4 %; Eosinophils # 0.2 10^3/uL (0.0-0.8); Eosinophils % 2.6 %; Hematocrit 25.1 % (37-53); Lymphocytes # 0.3 10^3/uL (0.8-4.8); Lymphocytes % 3.6 %; Mean Corpuscular HGB Conc 31.9 g/dL (30-55); Mean Corpuscular Hemoglobin 33.5 pg (27-33); Mean Platelet Volume 10.2 fL (7.4-10.4); Monocytes # 0.8 10^3/uL (0.2-0.9); Monocytes % 10.6 %; Neutrophils # 5.95 10^3/uL (1.8-7.7); Nucleated Red Blood Cells % 0.3 %; Platelet Count 117 10^3/cmm (157-399); Red Blood Count 2.39 10^6/uL (3.85-5.65); Red Cell Distribution Width 25.8 % (12.1-15.1); White Blood Count 7.26 10^3/uL (3.29-11.43)
[2024-06-18 04:41] LABS: Alanine Aminotransferase < 5 U/L (0-41); Albumin Level 3.5 g/dL (3.5-5.2); Alkaline Phosphatase 110 U/L (40-130); Anion Gap 16.6 (5-19); Aspartate Amino Transferase 16 U/L (0-40); Blood Urea Nitrogen 62 mg/dL (8-23); Calcium 8.4 mg/dL (8.5-10.5); Carbon Dioxide 25 mmol/L (22-29); Chloride 94 mmol/L (98-107); Creatinine Clr Calc Pharmacy 30.6539; Globulin 1.8 g/dL (1.3-4.6); Glucose 111 mg/dL (65-115); Magnesium 2.1 mg/dL (1.7-2.3); Osmolality Calculated 290 mOsm/kg (285-295); Phosphorus 4.1 mg/dL (2.5-4.5); Potassium 4.6 mmol/L (3.5-5.1); Sodium 131 mmol/L (136-145); Total Bilirubin 1.9 mg/dL (0.15-1.2); Total Protein 5.3 g/dL (6.6-8.7)
[2024-06-18] MEDS: pantoprazole 40 mg SDV IVP ×2 (05:22→17:11)
[2024-06-18] MEDS: albumin 25 G/100 ML BAG 60 G IV ×3 (05:22→20:59)
--- NOTE | 2024-06-18 06:25 | P.CONIM_ITS ---
Providers/Reason For Consult 2 Attending Physician: Milo Baldwin Primary Care Provider: Teo Fields MD History of Present Illness History of Present Illness Abhay Varghese is a 73 year old male Medications/Allergies Home Medications Medication Instructions Recorded Confirmed Last Taken Type allopurinol 100 mg tablet 100 mg PO DAILY #90 tabs 08/02/22 06/07/24 Unknown Rx duloxetine 60 mg capsule,delayed 60 mg PO DAILY #90 caps 08/02/22 06/07/24 Unknown Rx release tramadol 37.5 mg-acetaminophen 325 1 tab PO BID PRN Pain #60 tabs 08/02/22 06/07/24 Unknown Rx mg tablet pantoprazole 40 mg tablet,delayed 40 mg PO DAILY 04/11/24 06/07/24 Unknown History release apixaban 5 mg tablet (Eliquis) See Rx Instructions .Route 05/13/24 06/07/24 Unknown Rx .COMPLEX #180 tabs aspirin 81 mg tablet,delayed 81 mg PO DAILY 06/07/24 06/07/24 Unknown History release bumetanide 1 mg tablet 2 mg PO BID 06/07/24 06/07/24 Unknown History dapagliflozin propanediol 10 mg 10 mg PO DAILY 06/07/24 06/07/24 Unknown History tablet (Farxiga) hydralazine 10 mg tablet 10 mg PO BID 06/07/24 06/07/24 Unknown History isosorbide dinitrate 10 mg tablet 10 mg PO TID 06/07/24 06/07/24 Unknown History levothyroxine 25 mcg tablet 25 mcg PO DAILY 06/07/24 06/07/24 Unknown History Allergies Allergy/AdvReac Type Severity Reaction Status Date / Time No Known Allergies Allergy Verified 04/11/24 13:50 Current Medications Generic Name Dose Route Start Last Admin Trade Name Freq PRN Reason Stop Dose Admin Acetaminophen 650 mg 06/17/24 17:22 06/17/24 17:33 Acetaminophen 325 Mg Tablet PO 650 mg Q4H PRN Administration MILD PAIN OR INCREASE TEMP Alprazolam 0.5 mg 06/14/24 15:48 06/14/24 16:14 Alprazolam 0.5 Mg Tablet PO 0.5 mg BID PRN Administration ANXIETY Atropine Sulfate 2 drop 06/15/24 15:52 06/15/24 16:35 Atropine 1% Op Soln 2 Ml Btl SUBLINGUAL 2 drop Q2H PRN Administration SECRETIONS Cyclobenzaprine HCl 5 mg 06/09/24 10:50 06/13/24 21:49 Cyclobenzaprine 10 Mg Tablet PO 5 mg BID PRN Administration MUSCLE SPASMS Gabapentin 100 mg 06/09/24 13:15 06/17/24 17:33 Gabapentin 100 Mg Capsule PO 100 mg BID BRYANT Administration Albumin Human 12.5 gm in 50 mls @ 60 mls/hr 06/13/24 11:06 06/13/24 23:33 Albumin IV Infused PRN PRN Infusion Hypotension and/or symptomatic Norepinephrine Bitartrate 4 mg in 250 mls @ 0 mls/hr 06/14/24 09:30 06/17/24 10:27 Levophed IV 0 mcg/min .Q0M BRYANT 0 mls/hr Titration Protocol Per Protocol Micafungin Sodium 100 mg/ 100 mls @ 100 mls/hr 06/14/24 09:45 06/18/24 05:30 Sodium Chloride IV Infused Q24H BRYANT Infusion Piperacillin Sod/Tazobactam 50 mls @ 12.5 mls/hr 06/15/24 01:30 06/18/24 01:58 Sod 3.375 gm/ Sodium Chloride IV 12.5 mls/hr Q8H BRYANT Administration Protocol Dexmedetomidine/Sodium Chloride 400 mcg in 100 mls @ 0 mls/hr 06/14/24 22:30 06/15/24 19:00 Precedex IV 0 mcg/kg/hr .Q0M BRYANT 0 mls/hr Titration Protocol Per Protocol Albumin Human 25 g in 100 mls @ 60 mls/hr 06/15/24 11:00 06/18/24 05:22 Albumin IV 60 mls/hr Q8H BRYANT Administration Insulin Human Lispro 0 unit 06/08/24 12:00 06/17/24 20:35 Insulin Lispro 100 Unit/1 Ml SUBCUT Not Given WM&BEDTIME BRYANT Protocol Levothyroxine Sodium 25 mcg 06/08/24 09:00 06/17/24 08:05 Levothyroxine 25 Mcg Tablet PO 25 mcg DAILY BRYANT Administration Pantoprazole Sodium 40 mg 06/14/24 06:00 06/18/24 05:22 Pantoprazole 40 Mg Sdv IVP 40 mg Q12H BRYANT Administration PFSH Acute 2 PFSH: Medical History CHF exacerbation Ascites Liver cirrhosis Anticoagulation adequate with anticoagulant therapy Leg pain, right Atherosclerotic heart disease of [place] coronary artery without angina pectoris Gout Carotid artery stenosis with cerebral infarction AV malformation of gastrointestinal tract Dyslipidemia Type 2 diabetes mellitus A1c 6.30 March 2020 Ischemic cardiomyopathy Diabetes Hypertension ICD (implantable cardioverter-defibrillator) in place possibly [facility] device Atrial fibrillation CHF (congestive heart failure) EF ~30% CAD (coronary artery disease) Endocarditis CVA (cerebral vascular accident) TIA (transient ischemic attack) Bilateral carotid artery stenosis Patient had a stenting of the left ICA in April 2020 Surgical History 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 Hx of CABG 1997, 5V Hx of aortic valve replacement bioprosthetic, 2012 H/O carotid endarterectomy Family History Father Bleeding disorder Clotting disorder Diabetes CAD (coronary artery disease) Chronic kidney disease (CKD) Lung disease Stroke Other Family history of premature coronary artery disease Hyperlipidemia Hypertension Denies family history of Dementia Suicide Anesthesia complication Cancer Social History Smoking and tobacco/nicotine status: former use of tobacco/nicotine Alcohol intake: current Alcohol intake frequency: holidays/special occasions only Substance/Drug Use: former Date of last use: tried everything in the 60s Housing: House Vitals/I&O/Wt Last Vital Signs Temp 98.1 F 06/18/24 04:30 Pulse 70 06/18/24 06:00 Resp 10 L 06/18/24 06:00 BP 97/51 06/18/24 06:00 Pulse Ox 100 06/18/24 06:00 O2 Del Method Nasal Cannula 06/18/24 06:00 O2 Flow Rate 2 06/18/24 06:00 06/17/24 06/17/24 06/18/24 14:59 22:59 06:59 Intake Total 858.125 / 858.125 490 / 1348.125 100 / 1448.125 Output Total 3450 / 3450 1650 / 5100 Balance 858.125 / 858.125 -2960 / -2101.875 -1550 / -3651.875 Weight last 48 hrs Weight 119.5 kg Weight 123.5 kg Physical Exam 2 Urinary Catheter Management: Vazquez: Cath Placed During This Visit: yes Reason for Continuing Indwelling Catheter: Accurate Measurement of Urinary Output in Critically Ill Patients Urinary Catheter Date of Insertion: 06/08/24 Urinary Catheter Time of Insertion: 12:10 Data 06/18/24 03:58 06/18/24 03:58 Coding Level of Care Code Acute Code for Chg Fwd
[2024-06-18] MEDS: levothyroxine 25 mcg Tablet PO (08:46)
[2024-06-18] MEDS: gabapentin 100 mg Capsule PO ×2 (08:46→17:11)
[2024-06-18] MEDS: micafungin 100 MG in sodium chloride 0.9% (plus) 100 ML IV (08:47)
[2024-06-18 09:09] LABS: Glucose Point of Care 115 mg/dL (70-110)
--- NOTE | 2024-06-18 11:07 | PM.PN ---
Subjective Subjective: no new complaints Medications: Reviewed: Yes Vitals/I&O/Wt Last Vital Signs Temp 98.3 F 06/18/24 08:00 Pulse 74 06/18/24 11:00 Resp 17 06/18/24 11:00 BP 120/65 06/18/24 11:00 Pulse Ox 94 06/18/24 10:00 O2 Del Method Nasal Cannula 06/18/24 09:03 O2 Flow Rate 2 06/18/24 09:03 06/17/24 06/18/24 06/18/24 22:59 06:59 14:59 Intake Total 490 / 1348.125 150 / 1498.125 240 / 240 Output Total 3450 / 3450 1650 / 5100 200 / 200 Balance -2960 / -2101.875 -1500 / -3601.875 40 / 40 Weight last 48 hrs Weight 119.5 kg Weight 123.5 kg Physical Exam Narrative: awake , alert S1S2 RRR per report lungs clear per report Distended abdomen + ascites 1 + LE edema Urinary Catheter Management: Vazquez: Cath Placed During This Visit: yes Reason for Continuing Indwelling Catheter: Accurate Measurement of Urinary Output in Critically Ill Patients Urinary Catheter Date of Insertion: 06/08/24 Urinary Catheter Time of Insertion: 12:10 Data 06/18/24 03:58 06/18/24 03:58 A&P Assessment and plan (1) Acute kidney injury: 1. Acute on CKD stage III: Baseline creatinine in the mid 1 range now has an VEE with a creatinine of 2.8 associated with hyperkalemia and metabolic acidosis. Patient underwent paracentesis 2 days ago. Etiology of VEE likely multifactorial in the setting of prerenal and possible post paracentesis renal dysfunction. 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 Hyperkalemia: Low K diet and monitor, improved 3. Metabolic acidosis: Mild, s/p bicarbonate drip, improved 4. Liver cirrhosis with recurrent ascites and hepatic encephalopathy 5. Coronary artery disease with prior CABG 6. Cardiomyopathy with ICD placement 7. Anemia , s/p transfusion Overall poor prognosis Evaluated using audiovisual cart. Time spent 40 minutes. Plan per mediicne Attestations Medical Necessity Statement*: per mediicne Coding Level of Care Code Acute Code for Chg Fwd Diagnoses Acute kidney injury N17.9
--- NOTE | 2024-06-18 11:58 | PC.NURSE ---
950mL of serosanguinous drainage removed from peritoneal drain. Nurse would still describe as serousanguineous, but a significant amount of it is blood. Nurse took picture of drainage via voalte phone and sent to Dr de la paz.
[2024-06-18 12:41] LABS: INR 1.35 (0.8-1.2)
[2024-06-18 12:50] LABS: Glucose Point of Care 250 mg/dL (70-110)
[2024-06-18] MEDS: insulin lispro 100 unit/1 mL SUBCUT ×2 (13:46→18:06)
[2024-06-18 16:09] LABS: Basophils % 0.4 %; Eosinophils # 0.1 10^3/uL (0.0-0.8); Hematocrit 27.3 % (37-53); Lymphocytes # 0.2 10^3/uL (0.8-4.8); Mean Corpuscular HGB Conc 31.1 g/dL (30-55); Mean Corpuscular Hemoglobin 33.1 pg (27-33); Mean Corpuscular Volume 106.2 fl (82-101); Mean Platelet Volume 10.2 fL (7.4-10.4); Monocytes # 0.8 10^3/uL (0.2-0.9); Monocytes % 7.8 %; Neutrophils # 9.49 10^3/uL (1.8-7.7); Nucleated Red Blood Cells % 0.4 %; Platelet Count 127 10^3/cmm (157-399); Red Blood Count 2.57 10^6/uL (3.85-5.65); Red Cell Distribution Width 26.2 % (12.1-15.1); White Blood Count 10.79 10^3/uL (3.29-11.43)
[2024-06-18] MEDS: phytonadione (ADULT) 10 mg/mL Ampule 1 mL 2.5 MG PO (17:09)
[2024-06-18 17:31] LABS: Glucose Point of Care 180 mg/dL (70-110)
--- NOTE | 2024-06-18 18:37 | PC.NURSE ---
SHift SUmmary: Up to a chair for about 8 hours today. Mostly alert and oriented to person, place, time, and situation, but has some 3 periods of confusion/hallucinations lasting about 10 minutes each. HGB has increased to 8.5 total of 1950mL removed from peritoneal drain. Drainage is serosanguineous (mostly sanguineous).
--- NOTE | 2024-06-18 20:20 | P.PN_ITS ---
Subjective 2 Subjective: He feels his abdomen is less distended. We discussed with him with regards to overall condition. Discussed underlying liver cirrhosis, currently decompensation with recurrent ascites, additionally with renal failure, underlying heart disease, overall poor prognosis. Discussed consideration and option of consultation with hospice care. For now he wants to continue care as currently. Understands poor prognosis, severity of his illness, elevated risk of concomitant complications. Vitals/I&O/Wt Last Vital Signs Temp 96.7 F L 06/18/24 18:30 Pulse 71 06/18/24 18:30 Resp 16 06/18/24 18:30 BP 117/63 06/18/24 18:30 Pulse Ox 100 06/18/24 18:30 O2 Del Method Nasal Cannula 06/18/24 18:30 O2 Flow Rate 2 06/18/24 18:30 06/18/24 06/18/24 06/18/24 06:59 14:59 22:59 Intake Total 150 / 1498.125 590 / 590 1000 / 1590 Output Total 1650 / 5100 1400 / 1400 1050 / 2450 Balance -1500 / -3601.875 -810 / -810 -50 / -860 Weight last 48 hrs Weight 119.5 kg Weight 123.5 kg Physical Exam 2 Const: COMMON NORMALS: alert GENERAL APPEARANCE: cooperative O RIENTATION/CONSCIOUSNESS: Yes awake HENMT: COMMON NORMALS: oropharynx normal Neck/C-Spine: COMMON NORMALS: no JVD Resp: COMMON NORMALS: normal respiratory effort and clear to auscultation bilaterally AUSCULTATION: clear to auscultation bilaterally Cardio: COMMON NORMALS: no JVD, regular rhythm, S1 normal heart sound present, S2 normal heart sound present and No murmurs present (Cardio) RHYTHM: regular rhythm HEART SOUNDS: S1 normal heart sound present and S2 normal heart sound present GI: COMMON NORMALS: Soft to palpation and non-tender PALPATION: Yes Soft to palpation OTHER: Less distended. LL Abdomen drain. Extremity: COMMON NORMALS: no joint enlargement and no pedal edema Neuro: COMMON NORMALS: moves all extremities SENSORIUM/ORIENTATION: Yes alert Skin: COMMON NORMALS: no rashes or lesions noted GENERAL SKIN EXAM: no rashes or lesions noted Urinary Catheter Management: Vazquez: Cath Placed During This Visit: yes Reason for Continuing Indwelling Catheter: Accurate Measurement of Urinary Output in Critically Ill Patients Urinary Catheter Date of Insertion: 06/08/24 Urinary Catheter Time of Insertion: 12:10 Data 06/18/24 16:01 06/18/24 03:58 A&P Assessment and plan (1) Shock: Has weaned off Levophed. Reviewed vitals, CBC, CMP, requested INR. Overnight 2 L of peritoneal fluid drained and further 2 L drained drained this morning. Fluid again noted to be bloody. Discussed with him consideration of checking INR, supplementation of vitamin K. Discussed consideration of tranexamic acid, but he is concerned about risk of thrombosis. This does not appear to be a rapid bleed, repeat CBC reviewed, hemoglobin 8.5, platelet 127. However, will reassess blood counts again. Recheck INR. Discussed consideration of more comfort based measures, consideration of hospice care, for now he is does not yet feel ready but understands the severity of condition and increased risk of mortality and comorbidities. Add midodrine. Resume Levophed if MAP falling below 65. Discussed with corrections caseworker. He is also being evaluated for consideration of LTAC Empirically on Zosyn, micafungin. On review of urine culture, Pseudomonas growing in urine. Blood culture negative. Levophed for MAP goal of 65 mmHg, vasopressor requirement improving Continuous telemetry monitoring Strict I's and O's Daily weights (2) Anemia: Reviewed hemoglobin, plateletsHemoglobin steady around 8, recheck today 8.5. Platelets rechecked and 127. Off anticoagulation. Still bloody peritoneal fluid. Checked INR, 1.35. Supplement vitamin K. Recheck blood counts, INR. He is concerned about thrombotic complications with tranexamic acid. Reviewed CT abdomen pelvis with contrast from 06/14, no active bleeding seen. Reviewed surgery note. Continue to hold Eliquis. Hold duloxetine. Tramadol. Severe anemia likely secondary to blood loss in the peritoneum Status post 4 packed red blood cells Continue trending hemoglobin, transfuse if necessary Qualifiers: Anemia type: iron deficiency Iron deficiency anemia type: chronic blood loss Qualified Code(s): D50.0 - Iron deficiency anemia secondary to blood loss (chronic) (3) Liver cirrhosis: Decompensated liver cirrhosis with ascites Status post peritoneal drain placement complicated by hemoperitoneum which seems improved Proceed to drain 1 to 2 L from peritoneal cavity today pending hemodynamic response (4) Congestive heart failure: Noted new decrease in ejection fraction down to 20% on echocardiogram 06/08. Additionally with incidentally noted subvalvular echogenic escalating serpentine structure under mitral valve could be chordae tendon but vegetation cannot be ruled out on review of echocardiogram from 06/08. Reviewed blood culture, negative from 06/07. At the moment he is not a candidate for coronary angiography or anticoagulation/antiplatelet. Poor long-term dialysis candidate. Further dialysis held. Fluid restriction 1500 mL. Reassess volume status. Recurrent ascites with liver cirrhosis. History of ICD placement, history of ischemic cardiomyopathy Echo with LVEF of 20% Improving cardiogenic shock Continue Levophed support as needed to maintain MAP Volume control with dialysis and/or diuresis if hemodynamics allow (5) Acute metabolic encephalopathy: Improved. Add lactulose. Mentation overall improved, but does go off on tangents occasionally. Avoid sedating medications (6) Chronic kidney disease: Reviewed nephrology note. Poor long-term dialysis candidate. Did not tolerate dialysis well. Further dialysis held. Started on albumin. Chronic kidney disease with suspected production to end-stage renal disease. Nephrology is following, appreciate recommendations Defer dialysis management to nephrology (7) Diabetes: Sliding-scale insulin correction. Reviewed POC glucose. Trial of diet today (8) CAD (coronary artery disease): Qualifiers: Coronary Disease-Associated Artery/Lesion type: [place] artery [place] vs. transplanted heart: [place] heart Associated angina: without angina Qualified Code(s): I25.10 - Atherosclerotic heart disease of [place] coronary artery without angina pectoris Plan DVT prophylaxis: SCD Attestations 2 Medical Necessity Statement*: Continue admission for assessment management of improving shock, hemoperitoneum, recurrent ascites, renal dysfunction and gentleman with decompensated cirrhosis. Coding Level of Care Code Critical Care >/= 30 minutes Critical care time (in minutes): 35 The high probability of a clinically significant, sudden or life threatening deterioration, as referenced in this documentation, required my full and direct attention, intervention and personal management. The critical care time shown is in addition to time spent performing any reported separately billable procedures and includes the following: [x] Data and vital sign review and interpretation [x ] Patient assessment, examination and intervention [x] Medication orders and management [x] Patient/Family updates as able [x] Care Coordination and Documentation. Diagnoses Shock R57.9 Iron deficiency anemia due to chronic blood loss D50.0 Anemia type: iron deficiency Iron deficiency anemia type: chronic blood loss Liver cirrhosis K74.60 Congestive heart failure I50.9 Acute metabolic encephalopathy G93.41 Chronic kidney disease N18.9 Diabetes E11.9 Coronary artery disease involving [place] coronary artery of [place] heart without angina pectoris I25.10 Coronary Disease-Associated Artery/Lesion type: [place] artery [place] vs. transplanted heart: [place] heart Associated angina: without angina
[2024-06-18 20:21] LABS: Glucose Point of Care 126 mg/dL (70-110)
[2024-06-18] MEDS: midodrine 5 mg TABLET PO (20:58)
[2024-06-18] MEDS: lactulose oral liq 20 gm/30 mL UDC PO (20:58)
[2024-06-19] VITALS (51 sets, daily range): BP systolic 97–123; BP diastolic 52–75; PULSE 62–75; RESP 10–29; TEMP 36.1–36.8; O2SAT 82–100
[2024-06-19] MEDS: piperacillin-tazobactam 3.375 GM in sodium chloride 0.9% (plus) 50 ML IV ×3 (02:03→17:07)
[2024-06-19] MEDS: lactulose oral liq 20 gm/30 mL UDC PO ×4 (02:03→20:42)
[2024-06-19 03:51] LABS: Basophils % 0.3 %; Eosinophils # 0.2 10^3/uL (0.0-0.8); Lymphocytes # 0.3 10^3/uL (0.8-4.8); Lymphocytes % 2.9 %; Mean Corpuscular HGB Conc 31.5 g/dL (30-55); Mean Corpuscular Hemoglobin 33.1 pg (27-33); Mean Corpuscular Volume 104.8 fl (82-101); Mean Platelet Volume 10.2 fL (7.4-10.4); Monocytes # 0.8 10^3/uL (0.2-0.9); Monocytes % 8.9 %; Neutrophils # 7.33 10^3/uL (1.8-7.7); Neutrophils % 84.9 %; Nucleated Red Blood Cells % 0.3 %; Platelet Count 126 10^3/cmm (157-399); Red Blood Count 2.48 10^6/uL (3.85-5.65); Red Cell Distribution Width 25.8 % (12.1-15.1); White Blood Count 8.64 10^3/uL (3.29-11.43)
[2024-06-19 04:03] LABS: INR 1.42 (0.8-1.2)
[2024-06-19 04:12] LABS: Alanine Aminotransferase < 5 U/L (0-41); Albumin Level 3.7 g/dL (3.5-5.2); Alkaline Phosphatase 121 U/L (40-130); Anion Gap 16.7 (5-19); Aspartate Amino Transferase 17 U/L (0-40); Blood Urea Nitrogen 63 mg/dL (8-23); Calcium 8.5 mg/dL (8.5-10.5); Carbon Dioxide 25 mmol/L (22-29); Chloride 92 mmol/L (98-107); Creatinine Clr Calc Pharmacy 30.1428; Globulin 1.9 g/dL (1.3-4.6); Glucose 144 mg/dL (65-115); Osmolality Calculated 289 mOsm/kg (285-295); Potassium 4.7 mmol/L (3.5-5.1); Sodium 129 mmol/L (136-145); Total Bilirubin 1.7 mg/dL (0.15-1.2); Total Protein 5.6 g/dL (6.6-8.7)
[2024-06-19] MEDS: albumin 25 G/100 ML BAG 60 G IV ×3 (05:17→20:10)
[2024-06-19] MEDS: pantoprazole 40 mg SDV IVP ×2 (05:17→17:07)
[2024-06-19 07:20] LABS: Glucose Point of Care 147 mg/dL (70-110)
--- NOTE | 2024-06-19 08:24 | PM.PN ---
Subjective Subjective: no new complaints off leveophed Medications: Reviewed: Yes Vitals/I&O/Wt Last Vital Signs Temp 97.9 F 06/19/24 07:37 Pulse 65 06/19/24 06:00 Resp 12 06/19/24 06:00 BP 104/62 06/19/24 06:00 Pulse Ox 98 06/19/24 06:00 O2 Del Method Nasal Cannula 06/18/24 18:30 O2 Flow Rate 2 06/18/24 18:30 06/18/24 06/19/24 06/19/24 22:59 06:59 14:59 Intake Total 1170 / 1760 100 / 1860 Output Total 2050 / 3450 950 / 4400 Balance -880 / -1690 -850 / -2540 Weight last 48 hrs Weight 120.5 kg Weight 119.5 kg Physical Exam Narrative: awake , alert S1S2 RRR per report lungs clear per report Distended abdomen + ascites 1 + LE edema Urinary Catheter Management: Vazquez: Cath Placed During This Visit: yes Reason for Continuing Indwelling Catheter: Accurate Measurement of Urinary Output in Critically Ill Patients Urinary Catheter Date of Insertion: 06/08/24 Urinary Catheter Time of Insertion: 12:10 Data 06/19/24 03:40 06/19/24 03:40 A&P Assessment and plan (1) Acute kidney injury: 1. Acute on CKD stage III: Baseline creatinine in the mid 1 range now has an VEE with a creatinine of 2.8 associated with hyperkalemia and metabolic acidosis. Patient underwent paracentesis 2 days ago. Etiology of VEE likely multifactorial in the setting of prerenal and possible post paracentesis renal dysfunction. 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 Hyperkalemia: Low K diet and monitor, improved 3. Metabolic acidosis: Mild, s/p bicarbonate drip, improved 4. Liver cirrhosis with recurrent ascites and hepatic encephalopathy 5. Coronary artery disease with prior CABG 6. Cardiomyopathy with ICD placement 7. Anemia , s/p transfusion Overall poor prognosis Evaluated using audiovisual cart. Time spent 40 minutes. Plan per mediicne Attestations Medical Necessity Statement*: per angelina Coding Level of Care Code Acute Code for Chg Fwd Diagnoses Acute kidney injury N17.9
[2024-06-19] MEDS: gabapentin 100 mg Capsule PO ×2 (08:30→17:07)
[2024-06-19] MEDS: insulin lispro 100 unit/1 mL SUBCUT ×3 (08:30→17:17)
[2024-06-19] MEDS: midodrine 5 mg TABLET PO ×3 (08:30→20:42)
[2024-06-19] MEDS: levothyroxine 25 mcg Tablet PO (08:30)
[2024-06-19] MEDS: micafungin 100 MG in sodium chloride 0.9% (plus) 100 ML IV (10:47)
[2024-06-19 11:36] LABS: Glucose Point of Care 170 mg/dL (70-110)
--- NOTE | 2024-06-19 13:25 | PC.SOCIAL ---
IMM Update pg 2 of IMM Updated and reviewed w/ patient. Copy provided and copy dated, initialed and placed in chart.
[2024-06-19 14:24] LABS: Glucose Point of Care 190 mg/dL (70-110)
[2024-06-19 16:55] LABS: Glucose Point of Care 169 mg/dL (70-110)
--- NOTE | 2024-06-19 17:30 | PM.PN ---
Subjective Subjective: Has not developed any additional symptoms. No chest pain. Remains alert. Vitals/I&O/Wt Last Vital Signs Temp 98.3 F 06/19/24 16:38 Pulse 70 06/19/24 16:00 Resp 23 H 06/19/24 16:00 BP 97/60 06/19/24 16:00 Pulse Ox 100 06/19/24 16:00 O2 Del Method Nasal Cannula 06/19/24 16:00 O2 Flow Rate 2 06/19/24 16:00 06/19/24 06/19/24 06/19/24 06:59 14:59 22:59 Intake Total 250 / 2010 530 / 530 260 / 790 Output Total 950 / 4400 950 / 950 1200 / 2150 Balance -700 / -2390 -420 / -420 -940 / -1360 Weight last 48 hrs Weight 120.5 kg Weight 119.5 kg Physical Exam Narrative: Accompanied by his . Const: COMMON NORMALS: alert GENERAL APPEARANCE: cooperative ORIENTATION/CONSCIOUSNESS: Yes awake HENMT: COMMON NORMALS: oropharynx normal Neck/C-Spine: COMMON NORMALS: no JVD Resp: COMMON NORMALS: normal respiratory effort and clear to auscultation bilaterally AUSCULTATION: clear to auscultation bilaterally Cardio: COMMON NORMALS: no JVD, regular rhythm, S1 normal heart sound present, S2 normal heart sound present and No murmurs present (Cardio) RHYTHM: regular rhythm HEART SOUNDS: S1 normal heart sound present and S2 normal heart sound present GI: COMMON NORMALS: Normal to inspection, nondistended, normoactive bowel sounds present, Soft to palpation and non-tender PALPATION: Yes Soft to palpation OTHER: Less distended. LL Abdomen drain. Extremity: COMMON NORMALS: no joint enlargement and no pedal edema Neuro: COMMON NORMALS: moves all extremities SENSORIUM/ORIENTATION: Yes alert Skin: COMMON NORMALS: no rashes or lesions noted GENERAL SKIN EXAM: no rashes or lesions noted Urinary Catheter Management: Vazquez: Cath Placed During This Visit: yes Reason for Continuing Indwelling Catheter: Accurate Measurement of Urinary Output in Critically Ill Patients Urinary Catheter Date of Insertion: 06/08/24 Urinary Catheter Time of Insertion: 12:10 Data 06/19/24 03:40 06/19/24 03:40 A&P Assessment and plan (1) Acute kidney injury superimposed on CKD: Reviewed BUN, creatinine, potassium, bicarb, anion gap, BUN noted slightly worse at 63, creatinine same at 3. He is putting out urine. Urine output noted 0.16 mL/kg/h. Reviewed nephrology note. No additional dialysis. Continues on albumin infusions. Not a good long-term dialysis candidate. Did not tolerate dialysis session. Reassess renal function. Check urine sodium, creatinine, urea. On 20 mg oral Lasix. Monitor for risk of fluid overload with albumin infusions. (2) Liver cirrhosis: Decompensated liver cirrhosis with recurrent ascites. Status post peritoneal drain placement. 4 L drained on 06/18. With recurrent paracentesis question of whether he may benefit from TIPS, although discussed potential risk, and discussed unclear whether he may be a potential candidate given cardiomyopathy. His ammonia highest got up to 48. I reached out to his latent fingerprint examiner, but he has been on medical leave, discussed with his nurse practitioner. They had not had a chance to complete workup of with regards to the etiology of his nonalcoholic cirrhosis, so far with suspicion of congestive hepatopathy with CHF. Similarly discussing with them it is not clear that he would be a candidate for TIPS, additionally TIPS would not likely assist in his other acute issues with renal dysfunction, CHF, etc. Lactulose, target 2-3 soft bowel movements per day. (3) Hemoperitoneum: Bloody peritoneal fluid still drained on 06/18. Hemoglobin has remained steady just above 8. Not likely rapid bleed. Suspect some old blood mixed in. Prescription with surgery blood does not clot in the peritoneum well, and so likely a lot of what we are seeing would be old blood mixed in. Discussed additionally with patient and his . He has been off of anticoagulation which she had been on for atrial fibrillation due to risk of rebleeding, otherwise avoiding tranexamic acid or other agents which may increase risk of thrombosis due to potential risk associated with needing anticoagulation and also finding of unknown echogenic structure on the mitral valve. Reviewed INR, 1.42. Check vitamin K level. 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 Discussed with patient and his . There appeared to be subvalvular echogenic oscillating serpentine structure which could be chordae tendon however cannot rule out vegetation Reviewed blood culture, negative. Appreciate cardiology consultation, discussed with legal writing professor. Consideration of HARSH, although elevated risk candidate for procedure given his underlying comorbidities. Appreciate cardiology considerations. Will obtain repeat blood culture. (5) Congestive heart failure: In negative balance. Reviewed NICOLA. Reviewed vitals, chemistry. On oral Lasix 20 mg. Continue. Monitor NICOLA. Reassess electrolytes. Reassess renal function, with VEE on CKD. Noted new decrease in ejection fraction down to 20% on echocardiogram 06/08. Additionally with incidentally noted subvalvular echogenic escalating serpentine structure under mitral valve could be chordae tendon but vegetation cannot be ruled out on review of echocardiogram from 06/08. Reviewed blood culture, negative from 06/07. At the moment he is not a candidate for coronary angiography or anticoagulation/antiplatelet. Poor long-term dialysis candidate. Further dialysis held. Fluid restriction 1500 mL. Reassess volume status. Recurrent ascites with liver cirrhosis. History of ICD placement, history of ischemic cardiomyopathy Echo with LVEF of 20% Improving cardiogenic shock Continue Levophed support as needed to maintain MAP Volume control with dialysis and/or diuresis if hemodynamics allow (6) Shock: If continues to maintain blood pressure may transfer to medical surgical floor. Currently on albumin infusions 25 g every 8 hours. Midodrine 5 mg 3 times daily. Monitor for risk of bradycardia with midodrine. Reviewed vitals, CBC, CMP, requested INR. Discussed with nursing, casework supervisor. Has weaned off Levophed. He is also being evaluated for consideration of LTAC Empirically on Zosyn, micafungin. On review of urine culture, Pseudomonas growing in urine. Blood culture negative. Levophed for MAP goal of 65 mmHg, vasopressor requirement improving Continuous telemetry monitoring Strict I's and O's Daily weights (7) Anemia: Reviewed hemoglobin, plateletsHemoglobin steady around 8, recheck today 8.5. Platelets rechecked and 127. Off anticoagulation. Still bloody peritoneal fluid. Checked INR, 1.35. Supplement vitamin K. Recheck blood counts, INR. He is concerned about thrombotic complications with tranexamic acid. Reviewed CT abdomen pelvis with contrast from 06/14, no active bleeding seen. Reviewed surgery note. Continue to hold Eliquis. Hold duloxetine. Tramadol. Severe anemia likely secondary to blood loss in the peritoneum Status post 4 packed red blood cells Continue trending hemoglobin, transfuse if necessary Qualifiers: Anemia type: iron deficiency Iron deficiency anemia type: chronic blood loss Qualified Code(s): D50.0 - Iron deficiency anemia secondary to blood loss (chronic) (8) Acute metabolic encephalopathy: Improved. Add lactulose. Mentation overall improved, but does go off on tangents occasionally. Avoid sedating medications (9) Chronic kidney disease: Reviewed nephrology note. Poor long-term dialysis candidate. Did not tolerate dialysis well. Further dialysis held. Started on albumin. Chronic kidney disease with suspected production to end-stage renal disease. Nephrology is following, appreciate recommendations Defer dialysis management to nephrology (10) Diabetes: Sliding-scale insulin correction. Reviewed POC glucose. Trial of diet today (11) CAD (coronary artery disease): Qualifiers: Coronary Disease-Associated Artery/Lesion type: [place] artery [place] vs. transplanted heart: [place] heart Associated angina: without angina Qualified Code(s): I25.10 - Atherosclerotic heart disease of [place] coronary artery without angina pectoris Plan DVT prophylaxis: SCD Attestations Medical Necessity Statement*: Continue admission for assessment management of improving shock, hemoperitoneum, recurrent ascites, renal dysfunction and gentleman with decompensated cirrhosis. 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 transplanted heart: [place] heart Associated angina: without angina
--- NOTE | 2024-06-19 18:31 | PC.NURSE ---
A total of 2,000 mls of sanguineous peritoneal fluid was drained from the patient throughout the day. Patient was comfortable and up to his chair most of the day.
[2024-06-19 18:54] LABS: Urine Creatinine 117 mg/dL (39-259)
[2024-06-19 19:44] LABS: Urine Random Sodium > 10 mmol/L
[2024-06-19 19:55] LABS: Urea Nitrogen,Urine Random 547 mg/dL
--- NOTE | 2024-06-19 20:37 | PM.CONSULT ---
Providers/Reason For Consult Consulting Physician/Specialty*: Ha Londono MD/cardiology Reason for Consult*: Patient with worsening LV systolic function and mitral valve density by echocardiogram Requesting Physician: Dr. Baldwin Attending Physician: Milo Baldwin Primary Care Provider: Teo Fields MD History of Present Illness History of Present Illness Abhay Varghese is a 73 year old male with multiple medical problems, is admitted to the hospital with altered mental status. He was found to be in decompensated cirrhosis of the liver with a severe ascites requiring multiple large-volume paracentesis. Also was having features of worsening kidney function. His echocardiogram revealed a drop in the LV ejection fraction from 30% to 20%. There was a questionable abnormality in the mitral valve as well. Cardiology consult is requested for further cardiac evaluation recommendations. This patient was admitted to hospital in [facility] with shortness of breath and leg swelling. He had a prolonged hospital stay and was discharged home for outpatient paracentesis. Apparently he developed acute on chronic kidney injury following the paracentesis. He was admitted to our hospital with an acute onset of altered mental status. Exact etiology is not clear. He seems to be back to his baseline state at this point. He is mainly complaining of feeling weak and tired. No fever or chills. He is getting daily paracentesis, taking out around 4 L of fluid. He had a permacath placed for the paracentesis. This patient has an extensive and complicated cardiac history.He used to live in [facility] and moved to this area approximately 4 years ago. He is known to have coronary disease and had a coronary artery bypass surgery, 5 vessel?, In 1997. Since then, he had PCI. In 2012, he had an aortic valve replacement with a bioprosthetic valve. 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 For which he had to undergo the third open heart surgery when he had the aortic root replaced. He is known to have a cardiomyopathy with ejection fraction around 30%. He had a [employer]D placement in April of 2018. He is down to have chronic atrial fibrillation and is on long-term oral anticoagulation. Has a history of recurrent heart failure. Had a CVA in the past and carotid artery stenting . History of chronic kidney disease and cirrhosis of the liver. He has been compliant with the ICD interrogations. The device was found to be functioning okay. Has not had any recent functional evaluation of his cardiac status. His echocardiac revealed LV ejection fraction around 20%. He has moderate biatrial enlargement. There is mention of an echodense structure on the mitral valve.? Review of Systems Narrative: CONSTITUTIONAL: No fever or chills. Generalized fatigue and weakness EYES: No blurring of vision or other visual disturbances lately. ENT: No hoarseness of voice, auditory disturbances or sore throat. CARDIOVASCULAR: As mentioned above. RESPIRATORY: No significant cough. GASTROINTESTINAL: No hematemesis or melena. GENITOURINARY: No dysuria or hematuria. Massive ascites/portal hypertension INTEGUMENTARY: No skin rashes or history of skin cancer. NEURO: No transient ischemic attacks or amaurosis. PSYCHIATRIC: No history of psychosis or major depression. HEMATOLOGIC: Chronic anemia ENDOCRINE: No history of polyuria or polydipsia. MUSCULOSKELETAL: No recent joint pain or swelling. ALLERGY/IMMUNOLOGY: As mentioned above. Medications/Allergies Home Medications Medication Instructions Recorded Confirmed Last Taken Type allopurinol 100 mg tablet 100 mg PO DAILY #90 tabs 08/02/22 06/07/24 Unknown Rx duloxetine 60 mg capsule,delayed 60 mg PO DAILY #90 caps 08/02/22 06/07/24 Unknown Rx release tramadol 37.5 mg-acetaminophen 325 1 tab PO BID PRN Pain #60 tabs 08/02/22 06/07/24 Unknown Rx mg tablet pantoprazole 40 mg tablet,delayed 40 mg PO DAILY 04/11/24 06/07/24 Unknown History release apixaban 5 mg tablet (Eliquis) See Rx Instructions .Route 05/13/24 06/07/24 Unknown Rx .COMPLEX #180 tabs aspirin 81 mg tablet,delayed 81 mg PO DAILY 06/07/24 06/07/24 Unknown History release bumetanide 1 mg tablet 2 mg PO BID 06/07/24 06/07/24 Unknown History dapagliflozin propanediol 10 mg 10 mg PO DAILY 06/07/24 06/07/24 Unknown History tablet (Farxiga) hydralazine 10 mg tablet 10 mg PO BID 06/07/24 06/07/24 Unknown History isosorbide dinitrate 10 mg tablet 10 mg PO TID 06/07/24 06/07/24 Unknown History levothyroxine 25 mcg tablet 25 mcg PO DAILY 06/07/24 06/07/24 Unknown History Allergies Allergy/AdvReac Type Severity Reaction Status Date / Time No Known Allergies Allergy Verified 04/11/24 13:50 Current Medications Generic Name Dose Route Start Last Admin Trade Name Freq PRN Reason Stop Dose Admin Acetaminophen 650 mg 06/17/24 17:22 06/17/24 17:33 Acetaminophen 325 Mg Tablet PO 650 mg Q4H PRN Administration MILD PAIN OR INCREASE TEMP Atropine Sulfate 2 drop 06/15/24 15:52 06/15/24 16:35 Atropine 1% Op Soln 2 Ml Btl SUBLINGUAL 2 drop Q2H PRN Administration SECRETIONS Cyclobenzaprine HCl 5 mg 06/09/24 10:50 06/13/24 21:49 Cyclobenzaprine 10 Mg Tablet PO 5 mg BID PRN Administration MUSCLE SPASMS Gabapentin 100 mg 06/09/24 13:15 06/19/24 17:07 Gabapentin 100 Mg Capsule PO 100 mg BID BRYANT Administration Albumin Human 12.5 gm in 50 mls @ 60 mls/hr 06/13/24 11:06 06/13/24 23:33 Albumin IV Infused PRN PRN Infusion Hypotension and/or symptomatic Norepinephrine Bitartrate 4 mg in 250 mls @ 0 mls/hr 06/14/24 09:30 06/17/24 10:27 Levophed IV 0 mcg/min .Q0M BRYANT 0 mls/hr Titration Protocol Per Protocol Micafungin Sodium 100 mg/ 100 mls @ 100 mls/hr 06/14/24 09:45 06/19/24 10:47 Sodium Chloride IV 100 mls/hr Q24H BRYANT Administration Piperacillin Sod/Tazobactam 50 mls @ 12.5 mls/hr 06/15/24 01:30 06/19/24 17:07 Sod 3.375 gm/ Sodium Chloride IV 12.5 mls/hr Q8H BRYANT Administration Protocol Dexmedetomidine/Sodium Chloride 400 mcg in 100 mls @ 0 mls/hr 06/14/24 22:30 06/15/24 19:00 Precedex IV 0 mcg/kg/hr .Q0M BRYANT 0 mls/hr Titration Protocol Per Protocol Albumin Human 25 g in 100 mls @ 60 mls/hr 06/15/24 11:00 06/19/24 19:06 Albumin IV Infused Q8H BRYANT Infusion Insulin Human Lispro 0 unit 06/08/24 12:00 06/19/24 17:17 Insulin Lispro 100 Unit/1 Ml SUBCUT 2 unit WM&BEDTIME BRYANT Administration Protocol Lactulose 20 gm 06/18/24 20:45 06/19/24 14:32 Lactulose Oral Liq 20 Gm/30 Ml Udc PO 20 gm Q6H BRYANT Administration Levothyroxine Sodium 25 mcg 06/08/24 09:00 06/19/24 08:30 Levothyroxine 25 Mcg Tablet PO 25 mcg DAILY BRYANT Administration Midodrine 5 mg 06/18/24 21:00 06/19/24 14:32 Midodrine 5 Mg Tablet PO 5 mg TID BRYANT Administration Pantoprazole Sodium 40 mg 06/14/24 06:00 06/19/24 17:07 Pantoprazole 40 Mg Sdv IVP 40 mg Q12H BRYANT Administration PFSH Acute PFSH: Medical History CHF exacerbation Ascites Liver cirrhosis Anticoagulation adequate with anticoagulant therapy Leg pain, right Atherosclerotic heart disease of [place] coronary artery without angina pectoris Gout Carotid artery stenosis with cerebral infarction AV malformation of gastrointestinal tract Dyslipidemia Type 2 diabetes mellitus A1c 6.30 March 2020 Ischemic cardiomyopathy Diabetes Hypertension ICD (implantable cardioverter-defibrillator) in place possibly [facility] device Atrial fibrillation CHF (congestive heart failure) EF ~30% CAD (coronary artery disease) Endocarditis CVA (cerebral vascular accident) TIA (transient ischemic attack) Bilateral carotid artery stenosis Patient had a stenting of the left ICA in April 2020 Surgical History 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 Hx of CABG 1997, 5V Hx of aortic valve replacement bioprosthetic, 2012 H/O carotid endarterectomy Family History Father Bleeding disorder Clotting disorder Diabetes CAD (coronary artery disease) Chronic kidney disease (CKD) Lung disease Stroke Other Family history of premature coronary artery disease Hyperlipidemia Hypertension Denies family history of Dementia Suicide Anesthesia complication Cancer Social History Smoking and tobacco/nicotine status: former use of tobacco/nicotine Alcohol intake: current Alcohol intake frequency: holidays/special occasions only Substance/Drug Use: former Date of last use: tried everything in the 60s Housing: House Vitals/I&O/Wt Last Vital Signs Temp 98.3 F 06/19/24 16:38 Pulse 70 06/19/24 18:00 Resp 14 06/19/24 16:30 BP 106/60 06/19/24 18:00 Pulse Ox 100 06/19/24 18:00 O2 Del Method Nasal Cannula 06/19/24 18:00 O2 Flow Rate 2 06/19/24 18:00 06/19/24 06/19/24 06/19/24 06:59 14:59 22:59 Intake Total 250 / 2010 530 / 530 600 / 1130 Output Total 950 / 4400 950 / 950 1200 / 2150 Balance -700 / -2390 -420 / -420 -600 / -1020 Weight last 48 hrs Weight 265 lb 10.512 oz Weight 263 lb 7.238 oz Physical Exam Narrative: GENERAL: The patient is alert and oriented times three. Not in any acute distress. Features of hepatic cachexia. Massive ascites HEENT: No significant pallor, icterus or lymphadenopathy.Oral cavity: There are no mucous membrane lesions. NECK: Trachea appears to be central. No masses noted. No JVD or thyromegaly appreciated. RESPIRATORY: Chest is symmetrical. No intercostals muscle retraction or any accessory muscle activation. There is no chest wall tenderness. Breath sounds are heard bilaterally. No rales or rhonchi heard. No evidence of any consolidation. BREASTS: Deferred. HEART: The heart sounds are normal. No S3 or S4. Short systolic murmur at the aortic area. No diastolic murmurs. No pericardial rub ABDOMEN: Markedly distended. Permacath in place. : Deferred. RECTAL: Deferred. LYMPHATIC: No lymphadenopathy noted in the neck. EXTREMITIES: 2-3+ edema both lower extremities. No cyanosis. MUSCULOSKELETAL: No acute joint deformities or swelling SKIN: There are no significant rashes or ecchymosis NEUROPSYCHIATRIC: The patient is alert and oriented x3. Generalized weakness/lethargy. No focal motor deficit. Urinary Catheter Management: Vazquez: Cath Placed During This Visit: yes Reason for Continuing Indwelling Catheter: Accurate Measurement of Urinary Output in Critically Ill Patients Urinary Catheter Date of Insertion: 06/08/24 Urinary Catheter Time of Insertion: 12:10 Data 06/19/24 03:40 06/19/24 03:40 Micro: Microbiology 06/19/24 18:11 Blood Culture - Preliminary Blood SPECIMEN COLLECTED 06/19/24 18:12 Blood Culture - Preliminary Blood SPECIMEN COLLECTED EKG 1: My Interpretation: EKG showed demand V paced rhythm.. Further interpretation is not possible Other data: Echocardiogram done on 06/08/2024 1-Moderately increased left ventricular cavity size. Severely decreased left ventricular systolic function. Left ventricular ejection fraction is estimated at 20 %. Global left ventricular hypokinesis. Grade IV/IV diastolic dysfunction (irreversible restrictive filling pattern), severely elevated filling pressures. 2-Catheter/pacemaker wire in the right atrial cavity. Mildly increased right atrial size. 3-Moderately thickened mitral valve. Mild mitral annular calcification. No mitral valve stenosis. Mild mitral valve regurgitation. There appeared to be subvalvular echogenic oscillating serpentine structure which could be chordae tendon however cannot rule out vegetation, HARSH will be better modality to assess further 4-Aortic valve is not well-visualized cannot rule out bioprosthetic aortic valve however aortic valve is working in a good condition without any significant stenosis or regurgitation 5-Thickened tricuspid valve. No tricuspid valve stenosis. Mild tricuspid valve regurgitation. 6-There is no pericardial effusion. 7-Right atrial pressure is around 20 mm of mercury. A&P Assessment and plan (1) CHF (congestive heart failure): Clinically the heart failure seems to be somewhat compensated. The drop in the LV ejection fraction could be a contributing factor. Possibility of worsening of the underlying coronary ischemia cannot be excluded but my clinical suspicion may be low. Patient has no chest pain or any other specific cardiac symptoms. Qualifiers: Heart failure type: systolic Heart failure chronicity: chronic Qualified Code(s): I50.22 - Chronic systolic (congestive) heart failure (2) Ischemic cardiomyopathy: The LV ejection fraction has dropped from 30% to 20%. Once his clinical status is stable, we may consider doing a Myocardial perfusion imaging to evaluate for any ischemia. At this point, it would be appropriate to continue the treatment for heart failure and other symptomatic measures (3) Mitral valve disorder: I have reviewed the echocardiogram. I do not see any definite abnormality in the mitral valve. The echodensity appears to be an artifact. At this point, the patient may not require any specific intervention. He has no clinical evidence of any endocarditis. (4) H/O aortic root repair: Aortic root function appears to be appropriate based on the echocardiogram (5) Atherosclerotic heart disease of [place] coronary artery without angina pectoris: May continue on the current treatment measures. Qualifiers: [place] vs. transplanted heart: [place] heart Qualified Code(s): I25.10 - Atherosclerotic heart disease of [place] coronary artery without angina pectoris (6) Atrial fibrillation: The ventricular rate seems to be under control. Continue the long-term oral anticoagulation. Qualifiers: Atrial fibrillation type: permanent Qualified Code(s): I48.21 - Permanent atrial fibrillation (7) Bilateral carotid artery stenosis: Has not had any duplex examination or CTA since 2021. Will go ahead and do a carotid Doppler examination to further evaluate. (8) Decompensated hepatic cirrhosis: Management as per the primary. (9) Ascites: Most likely from the portal hypertension/cirrhosis of the liver Qualifiers: Ascites type: other type Qualified Code(s): R18.8 - Other ascites Plan Patient on the patient clinical progress, further recommendations will be made. Thank you for the opportunity eval this patient make these recommendations I may do a limited 2D echocardiogram focusing on the mitral valve to better evaluate Coding Level of Care Code 47060 Diagnoses Chronic systolic congestive heart failure I50.22 Heart failure type: systolic Heart failure chronicity: chronic Ischemic cardiomyopathy I25.5 Mitral valve disorder I05.9 H/O aortic root repair Z98.890 Atherosclerosis of [place] coronary artery of [place] heart without angina pectoris I25.10 [place] vs. transplanted heart: [place] heart Permanent atrial fibrillation I48.21 Atrial fibrillation type: permanent Bilateral carotid artery stenosis I65.23 Decompensated hepatic cirrhosis K72.90; K74.60 Other ascites R18.8 Ascites type: other type
[2024-06-19] MEDS: acetaminophen 325 mg Tablet 650 MG PO (20:42)
[2024-06-19] MEDS: albumin 12.5 GM/50 ML VIAL IV (20:43)
[2024-06-19 20:55] LABS: Glucose Point of Care 100 mg/dL (70-110)
[2024-06-20] VITALS (36 sets, daily range): BP systolic 92–115; BP diastolic 52–78; PULSE 70–74; RESP 12–26; TEMP 36.1–36.5; O2SAT 95–100
[2024-06-20] MEDS: piperacillin-tazobactam 3.375 GM in sodium chloride 0.9% (plus) 50 ML IV ×2 (03:18→09:05)
[2024-06-20] MEDS: albumin 25 G/100 ML BAG 60 G IV ×2 (04:11→14:35)
[2024-06-20 04:37] LABS: Basophils # 0.1 10^3/uL (0.0-0.1); Basophils % 0.8 %; Eosinophils # 0.2 10^3/uL (0.0-0.8); Hematocrit 24.9 % (37-53); Lymphocytes # 0.4 10^3/uL (0.8-4.8); Lymphocytes % 5.6 %; Mean Corpuscular HGB Conc 31.3 g/dL (30-55); Mean Corpuscular Hemoglobin 33.1 pg (27-33); Mean Corpuscular Volume 105.5 fl (82-101); Mean Platelet Volume 10.7 fL (7.4-10.4); Monocytes # 0.7 10^3/uL (0.2-0.9); Monocytes % 9.8 %; Nucleated Red Blood Cells % 0 %; Platelet Count 130 10^3/cmm (157-399); Red Blood Count 2.36 10^6/uL (3.85-5.65); Red Cell Distribution Width 25.4 % (12.1-15.1); White Blood Count 7.37 10^3/uL (3.29-11.43)
[2024-06-20 04:54] LABS: Alanine Aminotransferase < 5 U/L (0-41); Albumin Level 3.5 g/dL (3.5-5.2); Alkaline Phosphatase 124 U/L (40-130); Aspartate Amino Transferase 21 U/L (0-40); Blood Urea Nitrogen 64 mg/dL (8-23); Calcium 8.5 mg/dL (8.5-10.5); Carbon Dioxide 24 mmol/L (22-29); Chloride 94 mmol/L (98-107); Creatinine Clr Calc Pharmacy 32.4327; Globulin 1.8 g/dL (1.3-4.6); Glucose 138 mg/dL (65-115); Osmolality Calculated 293 mOsm/kg (285-295); Sodium 131 mmol/L (136-145); Total Bilirubin 1.5 mg/dL (0.15-1.2); Total Protein 5.3 g/dL (6.6-8.7)
[2024-06-20 04:55] LABS: Anion Gap 17.7 (5-19); Potassium 4.7 mmol/L (3.5-5.1)
[2024-06-20] MEDS: pantoprazole 40 mg SDV IVP (05:42)
[2024-06-20 08:03] LABS: Glucose Point of Care 133 mg/dL (70-110)
--- NOTE | 2024-06-20 08:21 | PM.PN ---
Subjective Subjective: The patient is feeling okay. Denies any chest pain or chest tightness. Had the echocardiogram today. He was found to have no masses or vegetations on the mitral valve. The LV ejection fraction was around 32%. Other details as mentioned below. Medications: Medication Review Details: Current Medications Acetaminophen (Acetaminophen 325 Mg Tablet) 650 mg PO Q4H PRN PRN Reason: MILD PAIN OR INCREASE TEMP Last Admin: 06/19/24 20:42 Dose: 650 mg Atropine Sulfate (Atropine 1% Op Soln 2 Ml Btl) 2 drop SUBLINGUAL Q2H PRN PRN Reason: SECRETIONS Last Admin: 06/15/24 16:35 Dose: 2 drop Cyclobenzaprine HCl (Cyclobenzaprine 10 Mg Tablet) 5 mg PO BID PRN PRN Reason: MUSCLE SPASMS Last Admin: 06/13/24 21:49 Dose: 5 mg Furosemide (Furosemide 20 Mg Tablet) 20 mg PO DAILY@0800 BRYANT Gabapentin (Gabapentin 100 Mg Capsule) 100 mg PO BID BRYANT Last Admin: 06/19/24 17:07 Dose: 100 mg Glucagon (Glucagon 1 Mg/Ml Kit 1 Ml) 1 mg IM ONCE PRN; Protocol PRN Reason: Adult Acute Hypoglycemia Nursing Prot. Dextrose (D5w) 500 mls @ 0 mls/hr IV ONCE PRN; Protocol PRN Reason: Adult Acute Hypoglycemia Prot Dextrose (D10w) 125 mls @ 750 mls/hr IV PRN PRN; Protocol PRN Reason: Adult Acute Hypoglycemia Nursing Protocol Dextrose (D10w) 250 mls @ 1,000 mls/hr IV PRN PRN; Protocol PRN Reason: Adult Acute Hypoglycemia Nursing Protocol Sodium Chloride (Sodium Chloride 0.9%) 1,000 mls @ 0 mls/hr IV .Q0M PRN PRN Reason: hypotension or symptomatic Albumin Human (Albumin) 12.5 gm in 50 mls @ 60 mls/hr IV PRN PRN PRN Reason: Hypotension and/or symptomatic Last Admin: 06/19/24 20:43 Dose: 60 mls/hr Norepinephrine Bitartrate (Levophed) 4 mg in 250 mls @ 0 mls/hr IV .Q0M BRYANT; Protocol Last Titration: 06/17/24 10:27 Dose: 0 mcg/min, 0 mls/hr Micafungin Sodium 100 mg/ (Sodium Chloride) 100 mls @ 100 mls/hr IV Q24H [facility] Last Infusion: 06/19/24 20:43 Dose: Infused Piperacillin Sod/Tazobactam (Sod 3.375 gm/ Sodium Chloride) 50 mls @ 12.5 mls/hr IV Q8H [facility]; Protocol Last Admin: 06/20/24 03:18 Dose: 12.5 mls/hr Dexmedetomidine/Sodium Chloride (Precedex) 400 mcg in 100 mls @ 0 mls/hr IV .Q0M [facility]; Protocol Last Titration: 06/15/24 19:00 Dose: 0 mcg/kg/hr, 0 mls/hr Albumin Human (Albumin) 25 g in 100 mls @ 60 mls/hr IV Q8H [facility] Last Admin: 06/20/24 04:11 Dose: 60 mls/hr Insulin Human Lispro (Insulin Lispro 100 Unit/1 Ml) 0 unit SUBCUT WM&BEDTIME [facility]; Protocol Last Admin: 06/19/24 20:54 Dose: Not Given Lactulose (Lactulose Oral Liq 20 Gm/30 Ml Udc) 20 gm PO Q6H [facility] Last Admin: 06/20/24 03:15 Dose: Not Given Levothyroxine Sodium (Levothyroxine 25 Mcg Tablet) 25 mcg PO DAILY [facility] Last Admin: 06/19/24 08:30 Dose: 25 mcg Midodrine (Midodrine 5 Mg Tablet) 5 mg PO TID [facility] Last Admin: 06/19/24 20:42 Dose: 5 mg Naloxone HCl (Naloxone 0.4 Mg/Ml Sdv) 0.1 mg IVP Q2M PRN PRN Reason: RESPIRATORY RATE < 8/MIN Pantoprazole Sodium (Pantoprazole 40 Mg Sdv) 40 mg IVP Q12H [facility] Last Admin: 06/20/24 05:42 Dose: 40 mg Vitals/I&O/Wt Last Vital Signs Temp 97.5 F L 06/20/24 05:30 Pulse 71 06/20/24 07:20 Resp 17 06/20/24 05:30 BP 98/53 06/20/24 05:30 Pulse Ox 100 06/20/24 07:20 O2 Del Method Nasal Cannula 06/20/24 07:20 O2 Flow Rate 2 06/20/24 07:20 06/19/24 06/20/24 06/20/24 22:59 06:59 14:59 Intake Total 700 / 1230 270 / 1500 Output Total 2200 / 3150 950 / 4100 Balance -1500 / -1920 -680 / -2600 Weight last 48 hrs Weight 261 lb 3.964 oz Weight 265 lb 10.512 oz Physical Exam Narrative: GENERAL: The patient is alert and oriented times three. Not in any acute distress. Features of hepatic cachexia. Massive ascites HEENT: No significant pallor, icterus or lymphadenopathy.Oral cavity: There are no mucous membrane lesions. NECK: Trachea appears to be central. No masses noted. No JVD or thyromegaly appreciated. RESPIRATORY: Chest is symmetrical. No intercostals muscle retraction or any accessory muscle activation. There is no chest wall tenderness. Breath sounds are heard bilaterally. No rales or rhonchi heard. No evidence of any consolidation. BREASTS: Deferred. HEART: The heart sounds are normal. No S3 or S4. Short systolic murmur at the aortic area. No diastolic murmurs. No pericardial rub ABDOMEN: Markedly distended. Permacath in place. : Deferred. RECTAL: Deferred. LYMPHATIC: No lymphadenopathy noted in the neck. EXTREMITIES: 2-3+ edema both lower extremities. No cyanosis. MUSCULOSKELETAL: No acute joint deformities or swelling SKIN: There are no significant rashes or ecchymosis NEUROPSYCHIATRIC: The patient is alert and oriented x3. Generalized weakness/lethargy. No focal motor deficit. Urinary Catheter Management: Vazquez: Cath Placed During This Visit: yes Reason for Continuing Indwelling Catheter: Accurate Measurement of Urinary Output in Critically Ill Patients Urinary Catheter Date of Insertion: 06/08/24 Urinary Catheter Time of Insertion: 12:10 Data 06/20/24 04:17 06/20/24 04:17 Other Labs: Laboratory Last Values WBC 7.37 10^3/uL (3.29-11.43) 06/20/24 04:17 RBC 2.36 10^6/uL (3.85-5.65) L 06/20/24 04:17 Hgb 7.80 g/dL (11.27-16.99) L 06/20/24 04:17 Hct 24.9 % (37-53) L 06/20/24 04:17 MCV 105.5 fl (82-101) H 06/20/24 04:17 MCH 33.1 pg (27-33) H 06/20/24 04:17 MCHC 31.3 g/dL (30-55) 06/20/24 04:17 RDW 25.4 % (12.1-15.1) H 06/20/24 04:17 Plt Count 130 10^3/cmm (157-399) L 06/20/24 04:17 MPV 10.7 fL (7.4-10.4) H 06/20/24 04:17 Neut % (Auto) 80.0 % 06/20/24 04:17 Lymph % (Auto) 5.6 % 06/20/24 04:17 [place] % (Auto) 9.8 % 06/20/24 04:17 Eos % (Auto) 3.0 % 06/20/24 04:17 Baso % (Auto) 0.8 % 06/20/24 04:17 Neut # (Auto) 5.90 10^3/uL (1.8-7.7) 06/20/24 04:17 Lymph # (Auto) 0.4 10^3/uL (0.8-4.8) L 06/20/24 04:17 [place] # (Auto) 0.7 10^3/uL (0.2-0.9) 06/20/24 04:17 Eos # (Auto) 0.2 10^3/uL (0.0-0.8) 06/20/24 04:17 Baso # (Auto) 0.1 10^3/uL (0.0-0.1) 06/20/24 04:17 Nucleated RBC % (auto) 0 % 06/20/24 04:17 Nucleated RBCs # 0.0 /100WBC 06/20/24 04:17 ESR 17 mm/hr (0-10) H 06/07/24 18:00 PT 17.80 SECONDS (12.1-14.9) H 06/19/24 03:40 INR 1.42 (0.8-1.2) H 06/19/24 03:40 APTT 37.3 SECONDS (23.9-36.7) H 06/14/24 10:03 Fibrinogen 245 mg/dL (174-498) 06/14/24 10:03 D-Dimer 8.62 ug/mLFEU (0-0.59) H 06/14/24 10:03 Specimen Type Arterial 06/15/24 12:10 Sample Site Radial, right 06/15/24 12:10 ABG pH 7.42 (7.35-7.45) 06/15/24 12:10 ABG pCO2 45.7 mmHg (35-45) H 06/15/24 12:10 ABG pO2 155.0 mmHg (80.0-100.0) H 06/15/24 12:10 ABG PO2/FiO2 Ratio 484 06/15/24 12:10 ABG HCO3 29.8 mmol/L (22-26) H 06/15/24 12:10 ABG O2 Saturation > 100.0 06/15/24 12:10 ABG Base Excess 4.8 mmol/L (-2.0-2.0) H 06/15/24 12:10 Edis Test Pos 06/15/24 12:10 A-a O2 Gradient 2.1 mmHg (5-10) L 06/15/24 12:10 Hematocrit 24.4 % (42-52) L 06/15/24 12:10 Hgb O2 Saturation 97.2 % (95-100) 06/15/24 12:10 Carboxyhemoglobin 1.7 %THgb (0.4-20.1) 06/15/24 12:10 Methemoglobin 1.3 % (0.4-1.5) 06/15/24 12:10 Total Hemoglobin 8.0 g/dL (14-18) L 06/15/24 12:10 Sodium 129.0 mmol/L (131-143) L 06/15/24 12:10 Potassium 4.7 mmol/L (3.5-5.0) 06/15/24 12:10 Glucose 156.0 mg/dL (70-115) H 06/15/24 12:10 Ionized Calcium 1.2 mmol/L (1.1-1.4) 06/15/24 12:10 O2 Delivery Device Nc 06/15/24 12:10 O2 Liters/Min 3.0 % 06/15/24 12:10 FiO2 32.0 % 06/15/24 12:10 Angiographer ID Gd 06/15/24 12:10 Sodium 131 mmol/L (136-145) L 06/20/24 04:17 Potassium 4.7 mmol/L (3.5-5.1) 06/20/24 04:17 Chloride 94 mmol/L (98-107) L 06/20/24 04:17 Carbon Dioxide 24 mmol/L (22-29) 06/20/24 04:17 Anion Gap 17.7 (5-19) 06/20/24 04:17 BUN 64 mg/dL (8-23) H 06/20/24 04:17 Creatinine 2.8 mg/dL (0.7-1.2) H 06/20/24 04:17 GFR Calculation Not Reportable 06/20/24 04:17 Glucose 138 mg/dL (65-115) H 06/20/24 04:17 POC Glucose 133 mg/dL (70-110) H 06/20/24 08:00 Calculated Osmolality 293 mOsm/kg (285-295) 06/20/24 04:17 Lactic Acid 3.7 mmol/L (0.5-2.2) H 06/07/24 19:20 Lactic Acid (Sepsis) 2.5 mmol/L (0.5-2.2) H 06/07/24 20:05 Calcium 8.5 mg/dL (8.5-10.5) 06/20/24 04:17 Phosphorus 4.1 mg/dL (2.5-4.5) 06/18/24 03:58 Magnesium 2.1 mg/dL (1.7-2.3) 06/18/24 03:58 Total Bilirubin 1.5 mg/dL (0.15-1.2) H 06/20/24 04:17 AST 21 U/L (0-40) 06/20/24 04:17 ALT < 5 U/L (0-41) 06/20/24 04:17 Alkaline Phosphatase 124 U/L (40-130) 06/20/24 04:17 Ammonia 48 umol/L (16-60) 06/08/24 06:12 C-Reactive Protein 28.3 mg/L (0.0-4.9) H 06/07/24 18:00 Total Protein 5.3 g/dL (6.6-8.7) L 06/20/24 04:17 Albumin 3.5 g/dL (3.5-5.2) 06/20/24 04:17 Globulin 1.8 g/dL (1.3-4.6) 06/20/24 04:17 Vitamin B12 1746 pg/mL (232-1245) H 06/14/24 03:15 Folate 5.4 ng/mL (4.5-32.2) 06/14/24 03:15 Procalcitonin 0.28 ng/mL (0-0.5) 06/16/24 03:03 TSH 20.56 uIU/mL (0.27-4.20) H 06/08/24 06:12 Urine Color Yellow (Yellow) 06/07/24 19:20 Urine Appearance Clear (CLEAR) 06/07/24 19:20 Urine pH 5.5 (5-7) 06/07/24 19:20 Ur Specific [place] 1.010 (1.005-1.030) 06/07/24 19:20 Urine Protein Trace (Negative) A 06/07/24 19:20 Urine Glucose (UA) Negative (Normal) 06/07/24 19:20 Urine Ketones Negative (Negative) 06/07/24 19:20 Urine Blood 2+ (Negative) A 06/07/24 19:20 Urine Nitrate Negative (Negative) 06/07/24 19:20 Urine Bilirubin Negative (Negative) 06/07/24 19:20 Urine Urobilinogen 1.0 mg/dL (Negative) 06/07/24 19:20 Ur Leukocyte Esterase Trace (Negative) A 06/07/24 19:20 Urine RBC 21-50 /hpf (0-2) H 06/07/24 19:20 Urine WBC 0-5 /hpf (0-5) 06/07/24 19:20 Ur Squamous Epith Cells 0-5 /hpf (0-5) 06/07/24 19:20 Urine Bacteria None seen /hpf (NONE) 06/07/24 19:20 Hyaline Casts 13.22 /lpf 06/07/24 19:20 Ur Random Sodium > 10 mmol/L 06/19/24 18:15 Ur Random Urea Nitrogn 547 mg/dL 06/19/24 18:15 Urine Creatinine 117 mg/dL (39-259) 06/19/24 18:15 Urine Opiates Screen Negative ng/mL (Negative) 06/07/24 19:20 Ur Barbiturates Screen Negative ng/mL (Negative) 06/07/24 19:20 Ur Phencyclidine Scrn Negative ng/mL (Negative) 06/07/24 19:20 Ur Amphetamines Screen Negative ng/mL (Negative) 06/07/24 19:20 U Benzodiazepines Scrn Negative ng/mL (Negative) 06/07/24 19:20 Urine Cocaine Screen Negative ng/mL (Negative) 06/07/24 19:20 U Marijuana (THC) Screen Negative ng/mL (Negative) 06/07/24 19:20 Ethyl Alcohol < 10 mg/dL (0-10) 06/07/24 18:00 Hep Bs Antigen Non-reactive (Nonreactive) 06/12/24 05:26 Hep Bs Antibody < 3.5 (11.5-1000) L 06/12/24 05:26 Hep B Core Total Ab Non-reactive (Nonreactive) 06/12/24 05:26 Blood Type A Negative 06/14/24 04:11 Rho(D) Type Rh negative 06/14/24 04:11 Antibody Screen Negative 06/14/24 04:11 Crossmatch See Detail 06/14/24 04:11 Micro: Microbiology 06/19/24 18:11 Blood Culture - Preliminary Blood SPECIMEN COLLECTED 06/19/24 18:12 Blood Culture - Preliminary Blood SPECIMEN COLLECTED A&P Assessment and plan (1) CHF (congestive heart failure): Clinically the heart failure seems to be somewhat compensated. May continue on the current measures. Qualifiers: Heart failure chronicity: chronic Heart failure type: systolic Qualified Code(s): I50.22 - Chronic systolic (congestive) heart failure (2) Ischemic cardiomyopathy: The echocardiogram from today revealed ejection fraction of 32%. This is essentially unchanged from the previous echocardiogram in 2020. At this point, patient may not require any further cardiac workup. (3) Mitral valve disorder: I have reviewed the echocardiogram. I do not see any definite abnormality in the mitral valve. The echodensity appears to be an artifact. At this point, the patient may not require any specific intervention. He has no clinical evidence of any endocarditis. The repeat echocardiogram from today reveals no masses or vegetations. 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 Qualifiers: [place] vs. transplanted heart: [place] heart Qualified Code(s): I25.10 - Atherosclerotic heart disease of [place] coronary artery without angina pectoris (6) Atrial fibrillation: The ventricular rate seems to be under control. Continue the long-term oral anticoagulation. Qualifiers: Atrial fibrillation type: permanent Qualified Code(s): I48.21 - Permanent atrial fibrillation (7) Bilateral carotid artery stenosis: Has not had any duplex examination or CTA since 2021. Will go ahead and do a carotid Doppler examination to further evaluate. (8) Decompensated hepatic cirrhosis: Management as per the primary. Patient is being considered for TPSS. (9) Ascites: Most likely from the portal hypertension/cirrhosis of the liver. Patient is in the process of being transferred to [facility] for the procedure Qualifiers: Ascites type: other type Qualified Code(s): R18.8 - Other ascites Plan Patient may be continue on the current management. Management of the ascites/cirrhosis of the liver as per the primary. Attestations Medical Necessity Statement*: Possible transfer out today Coding Level of Care Code 94290 Diagnoses Chronic systolic congestive heart failure I50.22 Heart failure chronicity: chronic Heart failure type: systolic Ischemic cardiomyopathy I25.5 Mitral valve disorder I05.9 H/O aortic root repair Z98.890 Atherosclerosis of [place] coronary artery of [place] heart without angina pectoris I25.10 [place] vs. transplanted heart: [place] heart Permanent atrial fibrillation I48.21 Atrial fibrillation type: permanent Bilateral carotid artery stenosis I65.23 Decompensated hepatic cirrhosis K72.90; K74.60 Other ascites R18.8 Ascites type: other type
[2024-06-20] MEDS: FUROsemide 20 mg Tablet PO (09:04)
[2024-06-20] MEDS: levothyroxine 25 mcg Tablet PO (09:05)
[2024-06-20] MEDS: midodrine 5 mg TABLET PO ×2 (09:05→14:35)
[2024-06-20] MEDS: lactulose oral liq 20 gm/30 mL UDC PO ×2 (09:05→14:35)
[2024-06-20] MEDS: gabapentin 100 mg Capsule PO (09:05)
[2024-06-20] MEDS: micafungin 100 MG in sodium chloride 0.9% (plus) 100 ML IV (09:06)
--- NOTE | 2024-06-20 09:33 | PC.NURSE ---
Hilda from [facility] called for updates on ICU 10. She stated that they do not have a bed for the patient yet.
[2024-06-20 12:01] LABS: Glucose Point of Care 190 mg/dL (70-110)
[2024-06-20] MEDS: insulin lispro 100 unit/1 mL SUBCUT (12:25)
--- NOTE | 2024-06-20 16:11 | PC.NURSE ---
[facility]
--- NOTE | 2024-06-20 16:33 | P.PN_ITS ---
Subjective 2 Subjective: doing well on 2l NC Medications: Reviewed: Yes Vitals/I&O/Wt Last Vital Signs Temp 97.2 F L 06/20/24 12:00 Pulse 70 06/20/24 14:33 Resp 12 06/20/24 14:33 BP 92/53 06/20/24 14:00 Pulse Ox 99 06/20/24 13:30 O2 Del Method Nasal Cannula 06/20/24 13:00 O2 Flow Rate 2 06/20/24 13:00 06/20/24 06/20/24 06/20/24 06:59 14:59 22:59 Intake Total 370 / 1600 850 / 850 Output Total 950 / 4100 1000 / 1000 Balance -580 / -2500 -150 / -150 Weight last 48 hrs Weight 118.5 kg Weight 120.5 kg Physical Exam 2 Narrative: awake , alert S1S2 RRR per report lungs clear per report Distended abdomen + ascites 1 + LE edema Urinary Catheter Management: Vazquez: Cath Placed During This Visit: yes Reason for Continuing Indwelling Catheter: Accurate Measurement of Urinary Output in Critically Ill Patients Urinary Catheter Date of Insertion: 06/08/24 Urinary Catheter Time of Insertion: 12:10 Data 06/20/24 04:17 06/20/24 04:17 Micro: Microbiology 06/19/24 18:11 Blood Culture - Preliminary Blood SPECIMEN COLLECTED 06/19/24 18:12 Blood Culture - Preliminary Blood SPECIMEN COLLECTED A&P Assessment and plan (1) Acute kidney injury: 1. Acute on CKD stage III: Baseline creatinine in the mid 1 range now has an VEE with a creatinine of 2.8 associated with hyperkalemia and metabolic acidosis. Patient underwent paracentesis 2 days ago. Etiology of VEE likely multifactorial in the setting of prerenal and possible post paracentesis renal dysfunction. 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 Hyperkalemia: Low K diet and monitor, improved 3. Metabolic acidosis: Mild, s/p bicarbonate drip, improved 4. Liver cirrhosis with recurrent ascites and hepatic encephalopathy, Awaiting transfer for a higher level of care 5. Coronary artery disease with prior CABG 6. Cardiomyopathy with ICD placement 7. Anemia , s/p transfusion Overall poor prognosis Evaluated using audiovisual cart. Time spent 40 minutes. Plan per mediicne Attestations 2 Medical Necessity Statement*: per carlottane Coding Level of Care Code Acute Code for Chg Fwd Diagnoses Acute kidney injury N17.9
--- NOTE | 2024-06-20 16:47 | PC.OT ---
TREATMENT HELD PATIENT IS TO BE TRANSFERRED OUT OF FACILITY THIS EVENING
--- NOTE | 2024-06-20 17:11 | PC.NURSE ---
Amy from transport center called stating that the patient got accepted at [facility] in [place].The room number was 89142-3. Call back number was [phone]. Tessie was the nurse at [facility] that got report. Doctor Denny was notified and also transfer and pumphouse operator.
--- NOTE | 2024-06-20 17:18 | PC.NURSE ---
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 Patient left the ICU unit at 1654 with all their belongings and in stable condition.
--- NOTE | 2024-06-20 17:35 | P.TS_ITS ---
Transfer Summary Providers Date of Admission: 06/09/24 09:35 Date of Discharge/Transfer: 06/20/24 Attending Provider at Admission: Federico Rowe MD Attending Provider at Transfer: Milo Baldwin Primary Care Provider: Teo Fields MD Transfer Plans: Anticipated date of transfer: 06/20/24 . 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 He had a prolonged hospitalization at [facility] for close to about a month in April treated for decompensated congestive heart failure, fluid overload, decompensated cirrhosis, at that time also with acute kidney injury on CKD possibly after large-volume paracentesis, with his condition gradually improving, renal function gradually returning closer to his usual baseline he was able to discharge. He was admitted at [facility] on 06/07 after presenting with altered mental status. On presentation with acute encephalopathy, confusion, global weakness, suspicion of combination metabolic encephalopathy with decompensated congestive heart failure, possibly hepatic encephalopathy, although ammonia was 40-48, also developed worsening renal function, possibly with component of uremic encephalopathy. Stroke was init ially considered as a possibility as well. UDS was unremarkable. UA with 21-50 RBC, 0-5 WBC. Trace leukocyte esterase. Urine culture eventually growing more than 100,000 CFU Pseudomonas. He was initially treated with ceftriaxone, subsequently antibiotics switched to Zosyn, was also covered empirically with micafungin. He was treated with IV diuretics for heart failure. Echocardiogram was obtained which showed worsening ejection fraction down to 20% compared to prior, also revealing incidental echogenic serpentine finding beneath the mitral valve, could not be determined whether it was chordae tendon a or another structure, vegetation not excluded. He underwent paracentesis due to recurrent ascites and fluid overload. Initially also with some myoclonus, was transiently on Keppra. With worsening renal function, fluid overload, Eliquis was held and he had an HD catheter placed, and he also had a peritoneal drain placed due to recurrent ascites. He was resumed on Eliquis. He underwent trial of dialysis which he did not tolerate well with hypotension. Started on albumin infusions, subsequently also with finding of acutely decreased hemoglobin with finding of hemoperitoneum with layers of blood in the ascites noted on CT, Eliquis was discontinued, duloxetine was withheld as well. Received tranexamic acid, in total received 4 units RBC transfusion. His mental status gradually improved. He now remains awake and alert. Renal function currently with creatinine hovering around 3, BUN around 60. He has been making urine. Continues on albumin infusions, on oral 20 mg Lasix. He gradually weaned off pressor support, continues on midodrine 5 mg 3 times daily. Cardiology was consulted, with regards to worsening cardiomyopathy as well as unidentified structure, limited TTE was repeated and ejection fraction is noted somewhat better in the study around 32%, without any abnormal structure visualized under mitral valve. His blood counts have leveled out around 8, but with some gradual decline. He continues to have some red blood in peritoneal fluid drainage through the abdominal drain, although per discussion with surgery likely there is old blood which does not clot in the peritoneum mixed with ascites fluid, but discussed with patient and his cannot exclude some slow oozing still going on. Remains on Zosyn and micafungin. As per discussion concerned about giving additional tranexamic acid with risk of thrombosis. He did receive small supplementation of vitamin K, and vitamin K level has been requested. He is on lactulose for hepatic encephalopathy prevention, ammonia level has not been repeated given improved mental status. His prognosis overall has remained guarded, and overall prognosis likely poor as per discussion with patient and his given this is a second prolonged hospitalization with multiorgan failure within the last 2 months [id number]. Additionally his kidneys remain in jeopardy with liver cirrhosis, cardiomyopathy. 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 Sepulveda), the etiology of the cirrhosis is unknown as they had not had a chance to work it up further with his recent health decompensation, but cardiac etiology was suspected. Patient and family understand the overall serious situation and advanced condition and lack of candidacy for transplantation. They are interested in additional assessment by specialist, consideration of possibility of TIPS, although as per discussion TIPS appears likely is also not a possibility given his overall condition. He is kindly accepted for further assessment and treatment at [facility] after discussion with accepting team there and had a bed opening today. With regards to postdischarge planning, hospice care was considered, but patient had not quite yet felt ready, arrangements were being made for further SNF level care once he is ready at [facility]. Physical Exam Narrative: Accompanied by his . Const: COMMON NORMALS: alert GENERAL APPEARANCE: cooperative ORIENTATION/CONSCIOUSNESS: Yes awake HENMT: COMMON NORMALS: oropharynx normal Neck/C-Spine: COMMON NORMALS: no JVD Resp: COMMON NORMALS: normal respiratory effort and clear to auscultation bilaterally AUSCULTATION: clear to auscultation bilaterally Cardio: COMMON NORMALS: no JVD, regular rhythm, S1 normal heart sound present, S2 normal heart sound present and No murmurs present (Cardio) RHYTHM: regular rhythm HEART SOUNDS: S1 normal heart sound present and S2 normal heart sound present GI: COMMON NORMALS: Normal to inspection, nondistended, normoactive bowel so unds present, Soft to palpation and non-tender PALPATION: Yes Soft to palpation OTHER: Less distended. LL Abdomen drain. Extremity: COMMON NORMALS: no joint enlargement GENERAL: Yes edema (trace) Neuro: COMMON NORMALS: moves all extremities SENSORIUM/ORIENTATION: Yes alert Skin: COMMON NORMALS: no rashes or lesions noted GENERAL SKIN EXAM: no rashes or lesions noted Urinary Catheter Management: Vazquez: Cath Placed During This Visit: yes Reason for Continuing Indwelling Catheter: Accurate Measurement of Urinary Output in Critically Ill Patients Urinary Catheter Date of Insertion: 06/08/24 Urinary Catheter Time of Insertion: 12:10 TS Data Studies Completed and Pending Pending at discharge Category Date Time Status Blood Culture Stat Lab 06/19/24 18:11 Results Complete Blood Count w/Auto AM LABS Lab 06/21/24 04:00 Ordered Comprehensive Metabolic Panel AM LABS Lab 06/21/24 04:00 Ordered Fibrinogen Degradation Product Routine Lab 06/14/24 10:10 Received Vitamin K Routine Lab 06/19/24 10:30 Received Completed Studies During Hospitalization Category Date Time Status CT abdomen pelvis w con* [id number] Routine Cat Scan 06/14/24 09:[address] abdomen pelvis wo con [id number] Urgent Cat Scan 06/14/24 04:[address] head wo con* [id number] Stat Cat Scan 06/07/24 18:59 Completed CXRP [XR chest 1V portable [id number]] Routine Exams 06/14/24 12:26 Completed XR chest 1V portable [id number] Routine Exams 06/12/24 15:21 Completed XR chest 1V portable [id number] Stat Exams 06/07/24 19:00 Completed CV. echo complete* [id number] Routine Ultrasound 06/08/24 06:00 Completed CV. echo limited [id number] Routine Ultrasound 06/20/24 23:01 Completed Laboratory Last Values WBC 7.37 10^3/uL (3.29-11.43) 06/20/24 04:17 RBC 2.36 10^6/uL (3.85-5.65) L 06/20/24 04:17 Hgb 7.80 g/dL (11.27-16.99) L 06/20/24 04:17 Hct 24.9 % (37-53) L 06/20/24 04:17 MCV 105.5 fl (82-101) H 06/20/24 04:17 MCH 33.1 pg (27-33) H 06/20/24 04:17 MCHC 31.3 g/dL (30-55) 06/20/24 04:17 RDW 25.4 % (12.1-15.1) H 06/20/24 04:17 Plt Count 130 10^3/cmm (157-399) L 06/20/24 04:17 MPV 10.7 fL (7.4-10.4) H 06/20/24 04:17 Neut % (Auto) 80.0 % 06/20/24 04:17 Lymph % (Auto) 5.6 % 06/20/24 04:17 Young % (Auto) 9.8 % 06/20/24 04:17 Eos % (Auto) 3.0 % 06/20/24 04:17 Baso % (Auto) 0.8 % 06/20/24 04:17 Neut # (Auto) 5.90 10^3/uL (1.8-7.7) 06/20/24 04:17 Lymph # (Auto) 0.4 10^3/uL (0.8-4.8) L 06/20/24 04:17 Young # (Auto) 0.7 10^3/uL (0.2-0.9) 06/20/24 04:17 Eos # (Auto) 0.2 10^3/uL (0.0-0.8) 06/20/24 04:17 Baso # (Auto) 0.1 10^3/uL (0.0-0.1) 06/20/24 04:17 Nucleated RBC % (auto) 0 % 06/20/24 04:17 Nucleated RBCs # 0.0 /100WBC 06/20/24 04:17 ESR 17 mm/hr (0-10) H 06/07/24 18:00 PT 17.80 SECONDS (12.1-14.9) H 06/19/24 03:40 INR 1.42 (0.8-1.2) H 06/19/24 03:40 APTT 37.3 SECONDS (23.9-36.7) H 06/14/24 10:03 Fibrinogen 245 mg/dL (174-498) 06/14/24 10:03 D-Dimer 8.62 ug/mLFEU (0-0.59) H 06/14/24 10:03 Specimen Type Arterial 06/15/24 12:10 Sample Site Radial, right 06/15/24 12:10 ABG pH 7.42 (7.35-7.45) 06/15/24 12:10 ABG pCO2 45.7 mmHg (35-45) H 06/15/24 12:10 ABG pO2 155.0 mmHg (80.0-100.0) H 06/15/24 12:10 ABG PO2/FiO2 Ratio 484 06/15/24 12:10 ABG HCO3 29.8 mmol/L (22-26) H 06/15/24 12:10 ABG O2 Saturation > 100.0 06/15/24 12:10 ABG Base Excess 4.8 mmol/L (-2.0-2.0) H 06/15/24 12:10 Edis Test Pos 06/15/24 12:10 A-a O2 Gradient 2.1 mmHg (5-10) L 06/15/24 12:10 Hematocrit 24.4 % (42-52) L 06/15/24 12:10 Hgb O2 Saturation 97.2 % (95-100) 06/15/24 12:10 Carboxyhemoglobin 1.7 %THgb (0.4-20.1) 06/15/24 12:10 Methemoglobin 1.3 % (0.4-1.5) 06/15/24 12:10 Total Hemoglobin 8.0 g/dL (14-18) L 06/15/24 12:10 Sodium 129.0 mmol/L (131-143) L 06/15/24 12:10 Potassium 4.7 mmol/L (3.5-5.0) 06/15/24 12:10 Glucose 156.0 mg/dL (70-115) H 06/15/24 12:10 Ionized Calcium 1.2 mmol/L (1.1-1.4) 06/15/24 12:10 O2 Delivery Device Nc 06/15/24 12:10 O2 Liters/Min 3.0 % 06/15/24 12:10 FiO2 32.0 % 06/15/24 12:10 [employer] Super[employer] ID [id number] 06/15/24 12:10 Sodium 131 mmol/L (136-145) L 06/20/24 04:17 Potassium 4.7 mmol/L (3.5-5.1) 06/20/24 04:17 Chloride 94 mmol/L (98-107) L 06/20/24 04:17 Carbon Dioxide 24 mmol/L (22-29) 06/20/24 04:17 Anion Gap 17.7 (5-19) 06/20/24 04:17 BUN 64 mg/dL (8-23) H 06/20/24 04:17 Creatinine 2.8 mg/dL (0.7-1.2) H 06/20/24 04:17 GFR Calculation Not Reportable 06/20/24 04:17 Glucose 138 mg/dL (65-115) H 06/20/24 04:17 POC Glucose 190 mg/dL (70-110) H 06/20/24 11:57 Calculated Osmolality 293 mOsm/kg (285-295) 06/20/24 04:17 Lactic Acid 3.7 mmol/L (0.5-2.2) H 06/07/24 19:20 Lactic Acid (Sepsis) 2.5 mmol/L (0.5-2.2) H 06/07/24 20:05 Calcium 8.5 mg/dL (8.5-10.5) 06/20/24 04:17 Phosphorus 4.1 mg/dL (2.5-4.5) 06/18/24 03:58 Magnesium 2.1 mg/dL (1.7-2.3) 06/18/24 03:58 Total Bilirubin 1.5 mg/dL (0.15-1.2) H 06/20/24 04:17 AST 21 U/L (0-40) 06/20/24 04:17 ALT < 5 U/L (0-41) 06/20/24 04:17 Alkaline Phosphatase 124 U/L (40-130) 06/20/24 04:17 Ammonia 48 umol/L (16-60) 06/08/24 06:12 C-Reactive Protein 28.3 mg/L (0.0-4.9) H 06/07/24 18:00 Total Protein 5.3 g/dL (6.6-8.7) L 06/20/24 04:17 Albumin 3.5 g/dL (3.5-5.2) 06/20/24 04:17 Globulin 1.8 g/dL (1.3-4.6) 06/20/24 04:17 Vitamin B12 1746 pg/mL (232-1245) H 06/14/24 03:15 Folate 5.4 ng/mL (4.5-32.2) 06/14/24 03:15 Procalcitonin 0.28 ng/mL (0-0.5) 06/16/24 03:03 TSH 20.56 uIU/mL (0.27-4.20) H 06/08/24 06:12 Urine Color Yellow (Yellow) 06/07/24 19:20 Urine Appearance Clear (CLEAR) 06/07/24 19:20 Urine pH 5.5 (5-7) 06/07/24 19:20 Ur Specific Ruby 1.010 (1.005-1.030) 06/07/24 19:20 Urine Protein Trace (Negative) A 06/07/24 19:20 Urine Glucose (UA) Negative (Normal) 06/07/24 19:20 Urine Ketones Negative (Negative) 06/07/24 19:20 Urine Blood 2+ (Negative) A 06/07/24 19:20 Urine Nitrate Negative (Negative) 06/07/24 19:20 Urine Bilirubin Negative (Negative) 06/07/24 19:20 Urine Urobilinogen 1.0 mg/dL (Negative) 06/07/24 19:20 Ur Leukocyte Esterase Trace (Negative) A 06/07/24 19:20 Urine RBC 21-50 /hpf (0-2) H 06/07/24 19:20 Urine WBC 0-5 /hpf (0-5) 06/07/24 19:20 Ur Squamous Epith Cells 0-5 /hpf (0-5) 06/07/24 19:20 Urine Bacteria None seen /hpf (NONE) 06/07/24 19:20 Hyaline Casts 13.22 /lpf 06/07/24 19:20 Ur Random Sodium > 10 mmol/L 06/19/24 18:15 Ur Random Urea Nitrogn 547 mg/dL 06/19/24 18:15 Urine Creatinine 117 mg/dL (39-259) 06/19/24 18:15 Urine Opiates Screen Negative ng/mL (Negative) 06/07/24 19:20 Ur Barbiturates Screen Negative ng/mL (Negative) 06/07/24 19:20 Ur Phencyclidine Scrn Negative ng/mL (Negative) 06/07/24 19:20 Ur Amphetamines Screen Negative ng/mL (Negative) 06/07/24 19:20 U Benzodiazepines Scrn Negative ng/mL (Negative) 06/07/24 19:20 Urine Cocaine Screen Negative ng/mL (Negative) 06/07/24 19:20 U Marijuana (THC) Screen Negative ng/mL (Negative) 06/07/24 19:20 Ethyl Alcohol < 10 mg/dL (0-10) 06/07/24 18:00 Hep Bs Antigen Non-reactive (Nonreactive) 06/12/24 05:26 Hep Bs Antibody < 3.5 (11.5-1000) L 06/12/24 05:26 Hep B Core Total Ab Non-reactive (Nonreactive) 06/12/24 05:26 Blood Type A Negative 06/14/24 04:11 Rho(D) Type Rh negative 06/14/24 04:11 Antibody Screen Negative 06/14/24 04:11 Crossmatch See Detail 06/14/24 04:[address] 06/07/24 18:59 IMPRESSION: 1. Old cortical infarcts not significantly changed from previous. 2. No acute intracranial finding ASSESSMENT: ASPECTS ([place] Stroke Program Early CT Score) is 10. C-Arm Fluoroscopy 06/12/24 15:20 IMPRESSION: Intraoperative imaging during dialysis catheter placement. Abdomen/Pelvis CT 06/14/24 09:15 IMPRESSION: 1. Large amount of ascites. Hounsfield is are elevated suggesting component of hemoperitoneum. 2. Peritoneal dialysis catheter with distal end coiled in the pelvis. 3. No active area of bleeding is identified. 4. 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 5. Small to moderate bilateral pleural effusions are unchanged. 6. There is a very subtle lucency of the spleen which could be a normal developmental cleft. If there is a history of trauma this could potentially be a splenic fracture. There is no history of trauma. 7. Pneumoperitoneum is unchanged. This may be related to the recent placement of the peritoneal dialysis catheter. 8. Large amount of soft tissue edema and anasarca. Notified Dereje Reyes MD at 06/14/2024 12:16 PM. Chest X-Ray 06/14/24 12:26 Impression: Satisfactory insertion of right PICC line. Recent Clincial Data Last Vital Signs Temp 97.2 F L 06/20/24 12:00 Pulse 70 06/20/24 16:30 Resp 19 H 06/20/24 16:30 BP 110/63 06/20/24 16:30 Pulse Ox 96 06/20/24 16:30 O2 Del Method Nasal Cannula 06/20/24 16:30 O2 Flow Rate 2 06/20/24 16:30 Vital Signs Temp Pulse Resp BP Pulse Ox O2 Del Method O2 Del Method 06/20/24 16:30 70 19 H 110/63 96 Nasal Cannula 06/20/24 16:00 71 16 102/67 96 06/20/24 15:30 70 20 H 112/73 06/20/24 15:00 73 19 H 111/59 06/20/24 14:33 70 12 06/20/24 14:00 73 06/20/24 14:00 92/53 06/20/24 13:30 114/66 99 06/20/24 13:00 72 21 H 112/59 98 Nasal Cannula 06/20/24 12:30 71 19 H 111/69 06/20/24 12:00 97.2 F L 70 22 H 104/60 98 Nasal Cannula 06/20/24 11:30 71 26 H 108/55 96 06/20/24 11:00 70 18 112/78 06/20/24 10:30 71 17 104/63 100 Nasal Cannula 06/20/24 10:00 71 17 115/58 06/20/24 09:30 70 13 115/65 98 06/20/24 09:00 97.7 F 70 15 115/65 100 Nasal Cannula 06/20/24 08:30 71 25 H 103/70 06/20/24 08:00 72 26 H 104/52 06/20/24 07:30 70 24 H 97/70 100 06/20/24 07:20 71 100 Nasal Cannula 06/20/24 07:00 74 18 107/64 100 06/20/24 06:30 72 17 95/59 100 06/20/24 06:00 70 13 95/59 100 06/20/24 05:48 70 O2 Flow Rate O2 Flow Rate 06/20/24 16:30 2 06/20/24 16:00 06/20/24 15:30 06/20/24 15:00 06/20/24 14:33 06/20/24 14:00 06/20/24 14:00 06/20/24 13:30 06/20/24 13:00 2 06/20/24 12:30 06/20/24 12:00 2 06/20/24 11:30 06/20/24 11:00 06/20/24 10:30 2 06/20/24 10:00 06/20/24 09:30 06/20/24 09:00 2 06/20/24 08:30 06/20/24 08:00 06/20/24 07:30 06/20/24 07:20 2 06/20/24 07:00 06/20/24 06:30 06/20/24 06:00 06/20/24 05:48 Intake & Output/Weight 06/18/24 06/19/24 06/20/24 06/21/24 06:59 06:59 06:59 06:59 Intake Total 1498.125 / 4465.717 9755 / 2010 1600 / 1600 850 / 850 Output Total 5100 / 5100 4400 / 4400 4100 / 4100 1000 / 1000 Balance -3601.875 / -3601.875 -2390 / -2390 -2500 / -2500 -150 / -150 Weight 119.5 kg 120.5 kg 118.5 kg Vitals Last Vital Signs Temp 97.2 F L 06/20/24 12:00 Pulse 70 06/20/24 16:30 Resp 19 H 06/20/24 16:30 BP 110/63 06/20/24 16:30 Pulse Ox 96 06/20/24 16:30 O2 Del Method Nasal Cannula 06/20/24 16:30 O2 Flow Rate 2 06/20/24 16:30 TS Medications Medications Acetaminophen (Acetaminophen 325 Mg Tablet) 650 mg PO Q4H PRN PRN Reason: MILD PAIN OR INCREASE TEMP Last Admin: 06/19/24 20:42 Dose: 650 mg Atropine Sulfate (Atropine 1% Op Soln 2 Ml Btl) 2 drop SUBLINGUAL Q2H PRN PRN Reason: SECRETIONS Last Admin: 06/15/24 16:35 Dose: 2 drop Cyclobenzaprine HCl (Cyclobenzaprine 10 Mg Tablet) 5 mg PO BID PRN PRN Reason: MUSCLE SPASMS Last Admin: 06/13/24 21:49 Dose: 5 mg Furosemide (Furosemide 20 Mg Tablet) 20 mg PO DAILY@0800 [facility] Last Admin: 06/20/24 09:04 Dose: 20 mg Gabapentin (Gabapentin 100 Mg Capsule) 100 mg PO BID [facility] Last Admin: 06/20/24 09:05 Dose: 100 mg Glucagon (Glucagon 1 Mg/Ml Kit 1 Ml) 1 mg IM ONCE PRN; Protocol PRN Reason: Adult Acute Hypoglycemia Nursing Prot. Dextrose (D5w) 500 mls @ 0 mls/hr IV ONCE PRN; Protocol PRN Reason: Adult Acute Hypoglycemia Prot Dextrose (D10w) 125 mls @ 750 mls/hr IV PRN PRN; Protocol PRN Reason: Adult Acute Hypoglycemia Nursing Protocol Dextrose (D10w) 250 mls @ 1,000 mls/hr IV PRN PRN; Protocol PRN Reason: Adult Acute Hypoglycemia Nursing Protocol Sodium Chloride (Sodium Chloride 0.9%) 1,000 mls @ 0 mls/hr IV .Q0M PRN PRN Reason: hypotension or symptomatic Albumin Human (Albumin) 12.5 gm in 50 mls @ 60 mls/hr IV PRN PRN PRN Reason: Hypotension and/or symptomatic Last Admin: 06/19/24 20:43 Dose: 60 mls/hr Norepinephrine Bitartrate (Levophed) 4 mg in 250 mls @ 0 mls/hr IV .Q0M [facility]; Protocol Last Titration: 06/17/24 10:27 Dose: 0 mcg/min, 0 mls/hr Micafungin Sodium 100 mg/ (Sodium Chloride) 100 mls @ 100 mls/hr IV Q24H [facility] Last Admin: 06/20/24 09:06 Dose: 100 mls/hr Piperacillin Sod/Tazobactam (Sod 3.375 gm/ Sodium Chloride) 50 mls @ 12.5 mls/hr IV Q8H [facility]; Protocol Last Admin: 06/20/24 09:05 Dose: 12.5 mls/hr Dexmedetomidine/Sodium Chloride (Precedex) 400 mcg in 100 mls @ 0 mls/hr IV .Q0M [facility]; Protocol Last Titration: 06/15/24 19:00 Dose: 0 mcg/kg/hr, 0 mls/hr Albumin Human (Albumin) 25 g in 100 mls @ 60 mls/hr IV Q8H [facility] Last Admin: 06/20/24 14:35 Dose: 60 mls/hr Insulin Human Lispro (Insulin Lispro 100 Unit/1 Ml) 0 unit SUBCUT WM&BEDTIME [facility]; Protocol Last Admin: 06/20/24 12:25 Dose: 4 unit Lactulose (Lactulose Oral Liq 20 Gm/30 Ml Udc) 20 gm PO Q6H [facility] Last Admin: 06/20/24 14:35 Dose: 20 gm Levothyroxine Sodium (Levothyroxine 25 Mcg Tablet) 25 mcg PO DAILY [facility] Last Admin: 06/20/24 09:05 Dose: 25 mcg Midodrine (Midodrine 5 Mg Tablet) 5 mg PO TID [facility] Last Admin: 06/20/24 14:35 Dose: 5 mg Naloxone HCl (Naloxone 0.4 Mg/Ml Sdv) 0.1 mg IVP Q2M PRN PRN Reason: RESPIRATORY RATE < 8/MIN Pantoprazole Sodium (Pantoprazole 40 Mg Sdv) 40 mg IVP Q12H [facility] Last Admin: 06/20/24 05:42 Dose: 40 mg Discontinued Medications Hydrocodone Bitart/Acetaminophen (Hydrocodone-Acetaminophen 5-325 Mg Tablet) 1 tab PO ONCE ONE Stop: 08/17/24 16:17 Last Admin: 06/08/24 16:32 Dose: 1 tab Albuterol Sulfate (Albuterol 2.5 Mg/3 Ml Neb) 2.5 mg INHALATION ONCE PRN PRN Reason: WHEEZING Allopurinol (Allopurinol 100 Mg Tablet) 100 mg PO DAILY [facility] Last Admin: 06/15/24 10:42 Dose: Not Given Alprazolam (Alprazolam 0.5 Mg Tablet) 0.5 mg PO BID PRN PRN Reason: ANXIETY Last Admin: 06/14/24 16:14 Dose: 0.5 mg Apixaban (Apixaban 5 Mg Tablet) 5 mg PO BID@0900,2100 [facility] Last Admin: 06/10/24 08:40 Dose: 5 mg Apixaban (Apixaban 5 Mg Tablet) 5 mg PO BID@0900,2100 [facility] Last Admin: 06/13/24 21:42 Dose: 5 mg Benzocaine (Cetylpyridinium Lozenge) 1 each MUCOUS MEM ONCE ONE Stop: 06/12/24 16:20 Last Admin: 06/12/24 18:10 Dose: Not Given Bumetanide (Bumetanide 1 Mg Tablet) 2 mg PO BID [facility] Last Admin: 06/08/24 09:57 Dose: 2 mg Ceftriaxone Sodium (Ceftriaxone 1,000 Mg Sdv) 1,000 mg IVP Q24H [facility]; Protocol Last Admin: 06/12/24 21:17 Dose: 1,000 mg Dexamethasone (Dexamethasone 4 Mg/Ml Inj) Confirm Administered Dose 4 mg .ROUTE .STK-MED ONE Stop: 06/12/24 13:03 Dexamethasone (Dexamethasone 4 Mg/Ml Inj) 4 mg IVP Q5M PRN PRN Reason: Nausea unrelieved by Reglan Stop: 06/13/24 16:19 Duloxetine HCl (Duloxetine 60 Mg Capsule) 60 mg PO DAILY [facility] Famotidine (Famotidine 20 Mg/2 Ml Inj) 20 mg IVP ONCE PRN PRN Reason: HEARTBURN Fentanyl (Fentanyl 50 Mcg/Ml Inj 2ml) 50 mcg IVP Q10M PRN PRN Reason: Preop Pain Fentanyl (Fentanyl 50 Mcg/Ml Inj 2ml) 100 mcg IVP ONCE PRN PRN Reason: Per anesthesia for block Fentanyl (Fentanyl 50 Mcg/Ml Inj 2ml) Confirm Administered Dose 100 mcg .ROUTE .STK-MED ONE Stop: 06/12/24 14:51 Fentanyl (Fentanyl 50 Mcg/Ml Inj 2ml) 50 mcg IVP Q5M PRN PRN Reason: Pain level 6-10 PACU Phase I Stop: 06/13/24 16:19 Haloperidol Lactate (Haloperidol Inj 5 Mg/Ml Inj 1 Ml) 5 mg IVP ONCE ONE Stop: 06/08/24 01:18 Last Admin: 06/08/24 01:29 Dose: 5 mg Heparin Sodium (Porcine) (Heparin, Porcine 1,000 Unit/Ml Inj 10 Ml) 10,000 unit INTRACATH ONCE ONE Stop: 06/12/24 10:59 Last Admin: 06/12/24 16:15 Dose: Not Given Heparin Sodium (Porcine) (Heparin, Porcine 1,000 Unit/Ml Inj 10 Ml) 1,000 unit IV ONCE ONE Stop: 06/12/24 10:59 Last Admin: 06/12/24 16:16 Dose: Not Given Heparin Sodium (Porcine) (Heparin, Porcine 1,000 Unit/Ml Inj 10 Ml) 10,000 unit INTRACATH ONCE ONE Stop: 06/12/24 15:07 Last Admin: 06/12/24 17:30 Dose: 10,000 unit Heparin Sodium (Porcine) (Heparin 5,000 Unit/Ml Inj 1 Ml) 1,000 unit IV ONCE ONE Stop: 06/12/24 15:09 Last Admin: 06/12/24 17:30 Dose: 1,000 unit Heparin Sodium (Porcine) (Heparin, Porcine 1,000 Unit/Ml Inj 10 Ml) 10,000 unit HE ONCE ONE Stop: 06/12/24 15:23 Last Admin: 06/12/24 15:35 Dose: 6,000 unit Heparin Sodium (Porcine) (Heparin, Porcine 1,000 Unit/Ml Inj 10 Ml) 10,000 unit INTRACATH ONCE ONE Stop: 06/13/24 11:07 Last Admin: 06/13/24 16:10 Dose: 10,000 unit Heparin Sodium (Porcine) (Heparin, Porcine 1,000 Unit/Ml Inj 10 Ml) 1,000 unit IV ONCE ONE Stop: 06/13/24 11:07 Last Admin: 06/13/24 16:10 Dose: 1,000 unit Hydromorphone HCl (Hydromorphone 1 Mg/Ml Inj 1 Ml) 0.25 mg IVP Q10M PRN PRN Reason: Pain level 4-6 PACU Phase I Stop: 06/13/24 16:19 Hydromorphone HCl (Hydromorphone 1 Mg/Ml Inj 1 Ml) 0.5 mg IVP Q10M PRN PRN Reason: Pain level 7-10 PACU Phase I Stop: 06/13/24 16:19 Hydromorphone HCl (Hydromorphone 1 Mg/Ml Inj 1 Ml) 0.5 mg IVP Q4H PRN PRN Reason: PAIN Last Admin: 06/16/24 09:49 Dose: 0.5 mg Sodium Bicarbonate 150 meq/ (Dextrose) 1,150 mls @ 75 mls/hr IV .[id number] [facility] Stop: 06/09/24 23:59 Last Infusion: 06/09/24 16:36 Dose: 0 mls/hr Dextrose (D5w) Confirm Administered Dose 1,000 mls @ as directed .ROUTE .[facility] Stop: 06/09/24 02:39 Last Admin: 06/09/24 02:55 Dose: Not Given Levetiracetam (Keppra) 1,000 mg in 100 mls @ 400 mls/hr IV ONCE ONE Stop: 06/10/24 10:17 Last Infusion: 06/10/24 10:59 Dose: Infused Insulin Human Regular 10 unit/ (N/A) 0.1 mls @ 0 mls/hr IVP ONCE ONE Stop: 06/12/24 10:14 Last Infusion: 06/12/24 18:17 Dose: Infused Dextrose (D10w) 125 mls @ 750 mls/hr IV PRN PRN PRN Reason: HYPOGLYCEMIA Dextrose/Sodium Chloride (Dextrose 5%-Sod Chloride 0.9%) 1,000 mls @ 30 mls/hr IV .Q24H [facility] Stop: 06/12/24 13:00 Last Infusion: 06/14/24 01:50 Dose: Infused Sodium Chloride (Sodium Chloride 0.9%) 1,000 mls @ 0 mls/hr IV .Q0M PRN PRN Reason: hypotension or symptomatic Albumin Human (Albumin) 12.5 gm in 50 mls @ 60 mls/hr IV PRN PRN PRN Reason: Hypotension and/or symptomatic Heparin Sodium (Porcine) (Heparin, Porcine) Confirm Administered Dose 10 mls @ as directed .ROUTE .[facility] ONE Stop: 06/12/24 12:34 Sodium Chloride (Sodium Chloride 0.9% (100 Ml)) Confirm Administered Dose 100 mls @ as directed .ROUTE .[facility] ONE Stop: 06/12/24 12:34 Last Admin: 06/12/24 18:10 Dose: Not Given Lidocaine HCl (Xylocaine) Confirm Administered Dose 1 mls @ as directed .ROUTE .[facility] ONE Stop: 06/12/24 13:02 Lidocaine HCl (Xylocaine) Confirm Administered Dose 2 mls @ as directed .ROUTE .[facility] ONE Stop: 06/12/24 13:02 Sodium Chloride (Sodium Chloride 0.9%) 1,000 mls @ 30 mls/hr IV .Q24H BRYANT Stop: 06/13/24 13:44 Last Infusion: 06/14/24 20:33 Dose: Infused Cefazolin Sodium 3,000 mg/ (Sodium Chloride) 100 mls @ 200 mls/hr IV [facility] ONE; Protocol Stop: 06/12/24 14:49 Last Infusion: 06/12/24 15:34 Dose: Infused Sodium Chloride (Sodium Chloride 0.9% (100 Ml)) Confirm Administered Dose 100 mls @ as directed .ROUTE .[facility] ONE Stop: 06/12/24 15:11 Albumin Human (Albumin) Confirm Administered Dose 25.0 gm in 100 mls @ as directed .ROUTE .[facility] ONE Stop: 06/12/24 15:21 Sodium Chloride (Sodium Chloride 0.9%) 500 mls @ 999 mls/hr IV .Q31M PRN PRN Reason: HYPOTENSION Albumin Human (Albumin) 12.5 gm in 50 mls @ 60 mls/hr IV ONCE ONE Stop: 06/13/24 21:47 Last Infusion: 06/14/24 03:43 Dose: Infused Piperacillin Sod/Tazobactam (Sod 3.375 gm/ Sodium Chloride) 50 mls @ 12.5 mls/hr IV Q12H [facility]; Protocol Last Infusion: 06/14/24 21:58 Dose: Infused Tranexamic Acid (Tranexamic Acid) 1,000 mg in 100 mls @ 600 mls/hr IV ONCE ONE Stop: 06/14/24 06:44 Last Infusion: 06/14/24 19:46 Dose: Infused Tranexamic Acid (Tranexamic Acid) 1,000 mg in 100 mls @ 600 mls/hr IV ONCE ONE Stop: 06/14/24 12:09 Last Infusion: 06/14/24 12:04 Dose: Infused Tranexamic Acid (Tranexamic Acid) 1,000 mg in 100 mls @ 600 mls/hr IV ONCE ONE Stop: 06/14/24 09:28 Last Infusion: 06/14/24 19:46 Dose: Infused Sterile Water (Water) Confirm Administered Dose 10 mls @ as directed .ROUTE .[facility] ONE Stop: 06/14/24 16:28 Last Infusion: 06/14/24 20:33 Dose: Infused Calcium Gluconate/Sodium Chloride (Calcium Gluconate 0.9% Nacl) 1 gm in 50 mls @ 100 mls/hr IV Q30M BRYANT Stop: 06/15/24 12:14 Last Infusion: 06/15/24 13:35 Dose: Infused Sodium Bicarbonate 100 meq/ (Dextrose) 350 mls @ 700 mls/hr IV ONCE ONE Stop: 06/15/24 11:30 Last Infusion: 06/15/24 12:34 Dose: Infused Iohexol (Iohexol 350 Mg/Ml 500 Ml Btl (Per Ml)) 0 ml IV ONCE ONE Stop: 06/14/24 11:03 Last Admin: 06/14/24 11:04 Dose: 100 ml Iohexol (Iohexol 350 Mg/Ml 500 Ml Btl (Per Ml)) 0 ml PO ONCE ONE Stop: 06/14/24 11:16 Last Admin: 06/14/24 11:15 Dose: 20 ml Ipratropium [place] (Ipratropium 0.5 Mg/2.5 Ml Neb) 0.5 mg INHALATION ONCE PRN PRN Reason: WHEEZING Ketorolac Tromethamine (Ketorolac 30 Mg/Ml Inj) 15 mg IVP ONCE ONE Stop: 06/08/24 00:10 Last Admin: 06/08/24 00:58 Dose: 15 mg Lactulose (Lactulose Oral Liq 20 Gm/30 Ml Udc) 30 gm PO ONCE ONE Stop: 06/07/24 21:21 Last Admin: 06/07/24 21:55 Dose: 30 gm Levetiracetam (Levetiracetam 1,000 Mg/10 Ml [facility] 500 mg PO BID BRYANT Last Admin: 06/12/24 09:20 Dose: 500 mg Lidocaine HCl (Lidocaine 1% Inj 10 Ml (Per Ml)) 0.1 ml INTRADERMA PRN PRN PRN Reason: anesthetic prior to IV start Stop: 06/13/24 13:42 Lidocaine/Epinephrine (Lidocaine-Epi 2% Pf 1:200,000 20 Ml Sdv) Confirm Administered Dose 20 ml .ROUTE .[facility] ONE Stop: 06/12/24 12:34 Last Admin: 06/12/24 15:35 Dose: 20 ml Meperidine HCl (Meperidine 50 Mg/Ml Inj) 12.5 mg IVP Q5M PRN PRN Reason: Shivering PACU Phase I Stop: 06/13/24 16:19 Metoclopramide HCl (Metoclopramide 5 Mg/Ml Sdv 2 Ml) 10 mg IVP ONCE PRN PRN Reason: N/V if zofran ineffective Metoclopramide HCl (Metoclopramide 5 Mg/Ml Sdv 2 Ml) 10 mg IVP Q5M PRN PRN Reason: Nausea unrelieved by Zofran Stop: 06/13/24 16:19 Midazolam HCl (Midazolam 1 Mg/Ml Inj 5 Ml) 5 mg IVP ONCE PRN PRN Reason: Per anesthesia for block Midazolam HCl (Midazolam 1 Mg/Ml Inj 2 Ml) 2 mg IVP Q5M PRN PRN Reason: Preop Anxiety Morphine Sulfate (Morphine 4 Mg/Ml Sdv 1 Ml) 2 mg IVP ONCE ONE Stop: 06/08/24 10:29 Last Admin: 06/08/24 10:35 Dose: 2 mg Morphine Sulfate (Morphine 4 Mg/Ml Sdv 1 Ml) 2 mg IVP ONCE ONE Stop: 06/08/24 21:25 Last Admin: 06/08/24 21:45 Dose: 2 mg Morphine Sulfate (Morphine 4 Mg/Ml Sdv 1 Ml) 0 mg IVP Q5M PRN PRN Reason: Breakthrough Pain PACU PhaseII Morphine Sulfate (Morphine 4 Mg/Ml Sdv 1 Ml) 2 mg IVP Q2M PRN PRN Reason: Pain level 6-10 PACU Phase I Stop: 06/13/24 16:19 Morphine Sulfate (Morphine 4 Mg/Ml Sdv 1 Ml) 2 mg IVP Q5M PRN PRN Reason: Pain level 2-5 PACU Phase I Stop: 06/13/24 16:19 Olanzapine (Olanzapine 10 Mg Vial) 10 mg IM ONCE ONE Stop: 06/14/24 16:16 Last Admin: 06/14/24 16:30 Dose: 10 mg Olanzapine (Olanzapine 10 Mg Vial) Confirm Administered Dose 10 mg .ROUTE .[facility]- [facility] ONE Stop: 06/14/24 16:28 Ondansetron HCl (Ondansetron 2 Mg/Ml Sdv 2 Ml) Confirm Administered Dose 4 mg .ROUTE .[facility] ONE Stop: 06/12/24 13:03 Ondansetron HCl (Ondansetron 2 Mg/Ml Sdv 2 Ml) 4 mg IVP Q5M PRN PRN Reason: NAUSEA AND VOMITING Ondansetron HCl (Ondansetron 2 Mg/Ml Sdv 2 Ml) 4 mg IVP Q15M PRN PRN Reason: Nausea/Vomiting PACU PHASE II Ondansetron HCl (Ondansetron 2 Mg/Ml Sdv 2 Ml) 4 mg IVP Q5M PRN PRN Reason: Nausea PACU Phase I Stop: 06/13/24 16:19 Oxycodone HCl (Oxycodone 5 Mg Ir Tab/Cap) 5 mg PO Q6H PRN PRN Reason: MODERATE PAIN Last Admin: 06/13/24 21:49 Dose: 5 mg Pantoprazole Sodium (Pantoprazole Dr 40 Mg Tablet) 40 mg PO DAILY BRYANT Last Admin: 06/12/24 09:20 Dose: 40 mg Phytonadione (Phytonadione (Adult) 10 Mg/Ml Ampule 1 Ml) 2.5 mg PO ONCE ONE Stop: 06/18/24 16:11 Last Admin: 06/18/24 17:09 Dose: 2.5 mg Propofol (Propofol 10 Mg/Ml Sdv 20 Ml) Confirm Administered Dose 200 mg .ROUTE .[facility] ONE Stop: 06/12/24 13:02 Rocuronium [place] (Rocuronium 10 Mg/Ml Inj 5ml) Confirm Administered Dose 50 mg .ROUTE .STK-[facility] ONE Stop: 06/12/24 14:53 Scopolamine (Scopolamine 1.5 Patch) 1 patch TRANSDERMA ONCE PRN PRN Reason: Nausea/ Vomiting Prophylaxis Sodium Bicarbonate (Sodium Bicarbonate 8.4% 1 Meq/Ml 50ml Syr) Confirm Administered Dose 150 meq .ROUTE .[facility] ONE Stop: 06/09/24 02:36 Last Admin: 06/09/24 02:55 Dose: Not Given Sodium Chloride (Sodium Chloride 0.9% 100 Ml Bag) 50 ml IV PRN PRN PRN Reason: Blood transfusion prime and flush Stop: 06/15/24 04:23 Sodium Chloride (Sodium Chloride 0.9% 100 Ml Bag) 50 ml IV PRN PRN PRN Reason: Blood transfusion prime and flush Stop: 06/15/24 08:02 Sodium Chloride (Sodium Chloride 0.9% 100 Ml Bag) 50 ml IV PRN PRN PRN Reason: Blood transfusion prime and flush Stop: 06/16/24 06:46 Succinylcholine Chloride (Succinylcholine 20 Mg/Ml Sdv 10ml) Confirm Administered Dose 200 mg .ROUTE .[facility] ONE Stop: 06/12/24 14:35 Sugammadex Sodium (Sugammadex 200 Mg/2 Ml Sdv) Confirm Administered Dose 200 mg .ROUTE .[facility] ONE Stop: 06/12/24 15:52 Zolpidem Tartrate (Zolpidem 5 Mg Tablet) 5 mg PO BEDTIME PRN PRN Reason: INSOMNIA Last Admin: 06/14/24 00:20 Dose: 5 mg Allergies No Known Allergies Allergy (Verified 04/11/24 13:50) Home Medications allopurinol 100 mg tablet 100 mg PO DAILY #90 tabs 08/02/22 [Rx Confirmed 06/07/24] duloxetine 60 mg capsule,delayed release 60 mg PO DAILY #90 caps 08/02/22 [Rx Confirmed 06/07/24] tramadol 37.5 mg-acetaminophen 325 mg tablet 1 tab PO BID PRN Pain #60 tabs 08/02/22 [Rx Confirmed 06/07/24] pantoprazole 40 mg tablet,delayed release 40 mg PO DAILY 04/11/24 [History Confirmed 06/07/24] apixaban 5 mg tablet (Eliquis) See Rx Instructions .Route .COMPLEX #180 tabs 05/13/24 [Rx Confirmed 06/07/24] aspirin 81 mg tablet,delayed release 81 mg PO DAILY 06/07/24 [History Confirmed 06/07/24] bumetanide 1 mg tablet 2 mg PO BID 06/07/24 [History Confirmed 06/07/24] dapagliflozin propanediol 10 mg tablet (Farxiga) 10 mg PO DAILY 06/07/24 [History Confirmed 06/07/24] hydralazine 10 mg tablet 10 mg PO BID 06/07/24 [History Confirmed 06/07/24] isosorbide dinitrate 10 mg tablet 10 mg PO TID 06/07/24 [History Confirmed 06/07/24] levothyroxine 25 mcg tablet 25 mcg PO DAILY 06/07/24 [History Confirmed 06/07/24] Discharge Plan Discharge Patient Disposition: Xfer Short-Term Hosp Condition: Stable Prescriptions: No Action allopurinol 100 mg tablet 100 mg PO DAILY Qty: 90 3RF duloxetine 60 mg capsule,delayed release(DR/EC) 60 mg PO DAILY Qty: 90 3RF pantoprazole 40 mg tablet,delayed release (DR/EC) 40 mg PO DAILY tramadol-acetaminophen 37.5-325 mg tablet 1 tab PO BID PRN (Reason: Pain) Qty: 60 5RF Eliquis 5 mg tablet See Rx Instructions .ROUTE .COMPLEX Qty: 180 3RF Dose Instruction: Take 1 tablet by mouth twice daily at 8am and 8pm. Rx Instructions: Take 1 tablet by mouth twice daily at 8am and 8pm. isosorbide dinitrate 10 mg tablet 10 mg PO TID hydralazine 10 mg tablet 10 mg PO BID Aspir-81 81 mg Tablet,Delayed Release (Dr/Ec) 81 mg PO DAILY levothyroxine 25 mcg tablet 25 mcg PO DAILY bumetanide 1 mg tablet 2 mg PO BID Farxiga 10 mg Tablet 10 mg PO DAILY Other Ambulatory Orders: DME: Wheelchair (Order) Location: None Selected Ordered By: Dereje Reyes Transfer Attestations Time Spent in Transfer Care: greater than 30 min Status at Transfer: Cognitive status at transfer: cognitively intact ; Behavioral status at transfer: cooperative ; Quality Metrics Clinical Quality Measures [ No reported AMI, CVA or VTE this stay] Coding Level of Care Code 11173 Total time (in minutes) for Discharge: 70 Diagnoses Acute kidney injury N17.9
--- NOTE | 2024-06-20 23:01 | USCV_ITS ---
Abhay Varghese Age: 73 Gender: M : 1950 Exam Date: 06/20/2024 00:21 Ordering Phys: Sascha Londono MD ([email or web address]) Technologist: FREDERICK [place] [facility] [place]: Please focus on the mitral valve to see any masses or vegetations BP: 115 / 68 HR: 69 Rhythm: Atrial fibrillation Technical Quality: Adequate MEASUREMENTS (Male / Female) Normal Values 2D ECHO LV Diastolic Diameter PLAX 6.7 cm 4.2 - 5.9 / 3.9 - 5.3 cm IVS Diastolic Thickness 0.8 cm 0.6 - 1.0 / 0.6 - 0.9 cm IVS Systolic Thickness 1.0 cm LVPW Diastolic Thickness 1.5 cm 0.6 - 1.0 / 0.6 - 0.9 cm LVPW Systolic Thickness 1.6 cm LVOT Diameter 2.0 cm LV Ejection Fraction 2D Teich 31.6 % LV Ejection Fraction MOD 2C 31.9 % LV Ejection Fraction 2C AL 31.8 % LA Diameter 6.2 cm Aorta at Sinotubular Diameter 2.5 cm IVC Diameter 2.9 cm M-MODE LA Ao Ratio MM 2.2 AV Cusp Separation MM 2.0 cm DOPPLER AV Peak Velocity 147.0 cm/s LVOT Peak Velocity 71.0 cm/s AV Area Cont Eq vti 1.6 cm squared AV Area Cont Eq pk 1.6 cm squared MV Peak Velocity 130.0 cm/s MV Area PHT 4.1 cm squared Mitral E to A Ratio 0.0 TV Peak Velocity 301.3 cm/s TR Peak Velocity 312.0 cm/s TR Peak Gradient 38.9 mmHg TV Peak E Velocity 65.0 cm/s Right Atrial Pressure 15.0 mmHg Pulmonary Artery Systolic Pressu 53.9 mmHg PV Peak Velocity 97.0 cm/s FINDINGS Left Ventricle Diffuse hypokinesis of the left ventricular with ejection fraction of 32%Grade III/IV diastolic dysfunction (restrictive filling pattern), severely elevated filling pressures. Right Ventricle Catheter/pacemaker wire in the right ventricular cavity. Mildly dilated right ventricle with a slightly diminished ejection fraction Right Atrium Catheter/pacemaker wire in the right atrial appendage. Mildly increased right atrial size. Left Atrium Mildly increased left atrial size. Mitral Valve Mild to moderate mitral valve regurgitation. No masses or vegetations were noted on the mitral valve. Minimal thickening of mitral leaflets. Aortic Valve The bioprosthetic valve at the aortic position appears to be well-seated. Peak velocity at the valve was 1.4 cm/s Tricuspid Valve [id number] tricuspid valve regurgitation. Estimated pulmonary artery peak systolic pressure 54 mmHg Pulmonic Valve Pulmonic valve not well visualized. Pericardium No pericardial effusion. Aorta Normal aortic annulus size. IVC Dilated IVC with decreased respiratory variation. CONCLUSIONS Diffuse hypokinesis of the left ventricular with ejection fraction of 32%Grade III/IV diastolic dysfunction (restrictive filling pattern), severely elevated filling pressures. Mildly dilated right ventricle with a slightly diminished ejection fraction Mild biatrial enlargementMild to moderate mitral valve regurgitation. No masses or vegetations were noted on the mitral valve. Minimal thickening of mitral leaflets. The bioprosthetic valve at the aortic position appears to be well-seated. Peak velocity at the valve was 1.4 cm/s. [id number] tricuspid valve regurgitation. Estimated pulmonary artery peak systolic pressure 54 mmHg. Pacemaker/ICD wire in the right atrium/right ventricle Dilated IVC with decreased respiratory variation. Compared to the study from 10/13/2020, there may not be a significant change Dr Sascha Londono MD [facility] (Electronically Signed) Final Date: 20 June 2024 08:51 S
== END 2024-06-20 16:54 | disposition short-term general hospital (02) | DRG 673 ==
LOC: ER 20:44 → MEDSURG 20:52 → ICU 06-14 06:59
PROVIDERS: Anesthesiology; Hospitalist; Internal Medicine; Student in an Organized Health Care Education/Training Program; Surgery; Admitting Provider Internal Medicine; Emergency Provider Emergency Medicine; PCP Internal Medicine; Visit Provider Internal Medicine
PROC: 0WHG43Z Insertion of Infusion Device into Peritoneal Cavity, Percutaneous Endoscopic Approach (ICD-10-PCS; principal; 2024-06-12 12:30)
PROC: 0WHG43Z Insertion of Infusion Device into Peritoneal Cavity, Percutaneous Endoscopic Approach (ICD-10-PCS; CPT 49324; 2024-06-12 12:30)
DX: N17.9 Acute kidney failure, unspecified (principal); G93.41 Metabolic encephalopathy; K66.1 Hemoperitoneum; R57.0 Cardiogenic shock; R57.8 Other shock; R18.8 Other ascites; I13.0 Hypertensive heart and chronic kidney disease with heart failure and stage 1 through stage 4 chronic kidney disease, or unspecified chronic kidney disease; I50.22 Chronic systolic (congestive) heart failure; I48.21 Permanent atrial fibrillation; G81.91 Hemiplegia, unspecified affecting right dominant side; D62 Acute posthemorrhagic anemia; E87.20 Acidosis, unspecified; K76.6 Portal hypertension; K74.60 Unspecified cirrhosis of liver; N18.30 Chronic kidney disease, stage 3 unspecified; E11.22 Type 2 diabetes mellitus with diabetic chronic kidney disease; Z95.3 Presence of xenogenic heart valve; I25.5 Ischemic cardiomyopathy; Z95.810 Presence of automatic (implantable) cardiac defibrillator; Z86.73 Personal history of transient ischemic attack (TIA), and cerebral infarction without residual deficits; Z79.01 Long term (current) use of anticoagulants; I25.10 Atherosclerotic heart disease of native coronary artery without angina pectoris; Z95.1 Presence of aortocoronary bypass graft; Z79.84 Long term (current) use of oral hypoglycemic drugs; Z79.82 Long term (current) use of aspirin; I95.9 Hypotension, unspecified; Z87.891 Personal history of nicotine dependence; G47.00 Insomnia, unspecified; K55.20 Angiodysplasia of colon without hemorrhage; K71.3 Toxic liver disease with chronic persistent hepatitis; G25.3 Myoclonus; E87.5 Hyperkalemia; E78.5 Hyperlipidemia, unspecified; M10.9 Gout, unspecified
CPT/HCPCS: 36415; 36416; 36430; 36573; 36592; 36600; 51702; 51798; 70450; 71045; 74176; 74177; 76000; 77001; 80048; 80051; 80053; 80306; 80307; 81001; 82140; 82330; 82570; 82607; 82746; 82805; 82962; 83605; 83735; 84100; 84145; 84300; 84443; 84540; 84597; 85014; 85018; 85025; 85362; 85378; 85384; 85610; 85651; 85730; 86140; 86705; 86706; 86850; 86900; 86920; 87040; 87077; 87086; 87186; 87340; 90935; 92507; 92523; 92526; 92610; 93005; 93306; 93308; 94664; 96372; 96374; 96376; 97110; 97116; 97163; 97167; 97530; 97535; 99285; C1751; G0378; J0330; J0612; J0690; J0696; J1100; J1170; J1630; J1644; J1815; J1885; J1953; J2248; J2270; J2405; J2470; J2543; J2704; J3010; J3430; J3490; J7030; J7042; J7060; J7070; P9016; P9046; P9047; Q3014; Q9967

== ENCOUNTER 2024-07-04 16:35 | Inpatient (IN) | payer MEDICARE, SELFPAY ==
[2024-07-04] VITALS (18 sets, daily range): BP systolic 85–111; BP diastolic 45–63; PULSE 61–73; RESP 14–27; TEMP 36.6; O2SAT 91–99
--- OUTSIDE RECORDS SUMMARY | 2024-07-04 09:15 | XMS_ITS ---
Author Name Unknown Organization [facility] Address [address] [place] [address] Care Team Providers Care Data Entry Analyst Name Role Phone Brigido Fields Primary Care Provider Hilda Rankin Unavailable [phone] TANIA BOWER Unavailable Unavailable Gus Sepulveda [phone] REASON FOR VISIT Ascites Encounters Encounter Location Date Provider Diagnosis [facility] [address] [place] [place] [address] 07/03/2024 Gus Sepulveda Plan Of Treatment No Information Progress Notes * JANICE TRAN RDOB: [birth year] (73 yo M)Acc No.[id number]:07/03/2024 History and Physical Patient:?JANICE TRAN Provider:?Gus Sepulveda MD :1950???Age:73 Y???Sex:Male Jevon e:07/03/2024 Address:[address] Pcp:Brigido Fields Subjective: * Chief Complaints: * ???1. Ascites. * Medical History:? Objective: * Vitals:? Assessment: Plan: * Treatment: * Billing Information: * Visit Code:? * Procedure Codes:? * Electronic signature of Will jcarlos Sepulveda MD on 07/04/2024 at 09:15 AM CDT Sign off status: Pending * Provider:?Gus Sepulveda MD Date:? 024 Generated for Miguel maravilla/Remi/Beatriz on:?07/04/2024 09:15 AM CDT
--- OUTSIDE RECORDS SUMMARY | 2024-07-04 09:15 | XMS_ITS ---
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
--- OUTSIDE RECORDS SUMMARY | 2024-07-04 09:15 | XMS_ITS ---
Author Name Unknown Organization [facility] Address [address] [place] [address] Care Team Providers Care Gauger Delivery Name Role Phone Brigido Fields Primary Care Provider [phone] Hilda Rankin Unavailable [phone] TANIA OBWER Unavailable Unavailable Gus Seuplveda [phone] REASON FOR VISIT Ascites Encounters Encounter Location Date Provider Diagnosis [facility] [address] [place] [address] 06/27/2024 Gus Sepulveda Plan Of Treatment No Information Progress Notes * JAINCE TRAN RDOB: [birth year] (73 yo M)Acc No.[id number]:06/27/2024 History and Physical Patient:?JANICE TRAN Provider:?Gus Sepulveda MD :1950???Age:73 Y???Sex:Male Jevon e:06/27/2024 Address:[address] [facility] Pcp:Brigido Fields Subjective: * Chief Complaints: [...]
--- OUTSIDE RECORDS SUMMARY | 2024-07-04 09:16 | XMS_ITS | Patient Health Record ---
Author Name Unknown Organization [facility] Address [address] [place] [address], [place] [address] Care Team Providers Care Sales Representative Door To Door Name Role Phone Brigido Fields Primary Care Provider Hilda Rankin Unavailable [phone] TANIA SEGUNDO Unavailable Unavailable Gus Sepulveda Unavailable [phone] Hoda Mendez Unavailable [phone] Solange Daugherty Unavailable [phone] Allergies No Known Allergies Results Component Value Reference Range Notes Comprehensive Metabolic Pane l 45834 Reviewed date:10/27/2023 09:41:49 AM Interpretation: Performing Lab: Notes/Report: Diagnosis Description: Iron deficiency Glucose Serum 147 71-110 MG/DL Testing perfor med at [facility], [address] [place], [place] [address] [address]. CLIA ID#: [id number] BUN 52 7-21 MG/DL Creat 1.89 .57-1.17 MG/DL X-vzgwat-h-benzoquinone imine (NAPQI) is a metabolite of acetaminophen, [...] 12-78 UNIT/L Osmo Serum,Calculated 305 280-300 MOSM/KG CBC w\ Auto Diff 53994 Reviewed date:10/20/2023 11:41:25 AM Interpretation: Performing Lab: [...] 42.0-75.0 % Lymph Auto% 12.5 21.0-51.0 % [place] Auto% 9.1 1.7-9.3 % Eos Auto% 1.7 .0-6.0 Baso Auto% 1.2 0.0-1.0 Imm Gran% .3 .0-.4 % Neutro Abs 4.86 .80-7.70 Absolute Neutrophil Count 4860 Lymph Abs .81 .10-4.10 [place] Abs .59 .20-1.00 Eos Abs .11 .00-.40 Baso Abs .08 .00-.10 Imm Gran Abs .02 .00-.10 NRBC# .00 .00-.20 NRBC% .00 .00-.20 /100 intact WBC's % Iron Saturation (Fe & TIBC )--75275,21623 Reviewed date:10/27/2023 09:41:52 AM Interpretation: Performing Lab: Notes/Report: Diagnosis Description: Iron deficiency Iron 98 65-175 MCG/DL Per Iron assay instruction for Use(IFU), patients treated with metal-binding drugs (e.g.deferoxamine) may have depressed iron values as chelated iron may not properly react in the iron assay. Testing was performed with this assay method. TIBC 425 250-450 NG/DL % Iron Saturation 23 20-50 % Hemoglobin A1c 26524 Reviewed date:10/27/2023 09:41:58 AM Interpretation: Performing Lab: Notes/Report: Diagnosis Description: Iron deficiency Hgb A1c 7.2 3.8-6.4 % Interpretation Of Hgb A1c: 4.5-6.2 % nondiabetics. >7.0 % diabetics. EAG 160 Estimated Crawford ge Glucose(EAG). US Abdomen Limited-85522 Reviewed date:04/18/2024 02:05:11 PM Interpretation: Performing Lab: Notes/Report: See Below For Report US Abdomen Limited Read See Below For Report Glucose Body Fluid--32336 Reviewed date:04/18/2024 02:05:58 PM Interpretation: Performing Lab: [...] clinical context for interpretation. Gluc BF 109 Protein Body Fluid Reviewed date:04/18/2024 02:05:55 PM [...] integrated into the clinical context for interpretation. Schedule Confirmation Reviewed date:05/20/2024 07:34:13 AM Interpretation: Performing Lab: Notes/Report: Heart Cath Lt poss PTCA Prothrombin Time 93596 Reviewed date:05/20/2024 07:34:13 AM Interpretation: Performing Lab: Notes/Report: 4428 @ 1802 4428 ProTime 13.6 9.1-11.9 SEC Normal Range: 9 .1-11.9 INR 1.31 .90-1.20 Therapaeutic Range for heart valve replacement: 2.5-3.50 Therapeutic Range: 2.0-3.0 Partial Thromboplastin Time 37209 Reviewed date:05/20/2024 07:34:13 AM Interpretation: Performing Lab: Notes/Report: 4428 @ 1802 4428 PTT 37.9 22.6-31.8 SEC Critical Value Starting at > 100. Therapeutic Range: 60-100. Basic Metabolic Panel (BMP) 16898 Reviewed date:05/20/2024 07:34:13 AM Interpretation: Performing Lab: Notes/Report: 4428 @ 1802 4428 Sodium 136 136-145 MMOL/L Potassium 4.0 3.5-5.1 MMOL/L Chloride 107 98-107 MMOL/L CO2 20.4 20.0-31.0 MMOL/L Glucose Serum 116 71-110 MG/DL Testing perfor med at [address] [place] [address]. CLIA ID#: [id number] BUN 53 7-21 MG/DL Creat 2.70 .57-1.17 MG/DL Y-wmhcnd-b-benzoquinone imine (NAPQI) is a metabolite of acetaminophen, [...] 8.7-10.4 MG/DL Osmo Serum,Calculated 297 280-300 MOSM/KG zzzHeart Cath Lt poss PTCA Reviewed date:05/20/2024 07:34:13 AM Interpretation: Performing Lab: Notes/Report: pbs=[id number]&org=iSite bnw=[id number] 4&org=iSite zzzHeart Cath Lt poss PTCA Reviewed date:05/20/2024 07:34:13 AM Interpretation: Performing Lab: Notes/Report: See Below For Report This report was dictated outside of the Heys[employer] system. 4428 @ 1802 Read See Below For Report Paracentesis Reviewed date:07/03/2024 01:48:45 PM Interpretation: Performing Lab: Notes/Report: WBC Auto Diff--06540 Reviewed date:05/20/2024 07:34:13 AM Interpretation: Performing Lab: Notes/Report: Added by Discern Rules 4428 @ 1802 4428 Neutro Auto% 74.9 40.0-70.0 % Lymph Auto% 6.5 22.0-44.0 % [place] Auto% 12.3 3.0-7.0 % Eos Auto% 4.5 2.0-4.0 % Baso Auto% 1.0 0.0-1.0 % NRBC% .00 .00-.20 /100 intact WBC's Neutro Abs 3.70 .80-7.70 Absolute Neutrophil Count 3700 Lymph Abs .32 .10-4.10 [place] Abs .61 .20-1.00 Eos Abs .22 .00-.40 Baso Abs .05 .00-.20 NRBC# .00 .00-.20 Imm Gran Abs .04 .00-.10 Imm Gran% .8 .0-.4 % CBC Reflex Man Diff 93868, 8 5007 Reviewed date:05/20/2024 07:34:13 AM Interpretation: Performing Lab: Notes/Report: 4428 @ 1802 4428 WBC 4.9 4.5-11.0 X10'3 RBC 2.49 4.50-5.90 X10'6 Hgb 8.5 13.5-17.5 G/DL Hct 27.3 41.0-53.0 % MCV 109.6 80.0-100.0 FL MCH 34.1 27.0-31.0 PG MCHC 31.1 31.0-37.0 G/DL Platelet 228 150-400 X10'3 RDW-SD 72.5 35.0-49.0 FL RDW-CV 18.2 12.2-15.6 % MPV 10.1 9.2-12.0 FL Review Morph/Scan cytology--NO CPT Reviewed date:04/18/2024 02:05:19 PM Interpretation: Performing Lab: Notes/Report: Cytology Sent to Pathologist This mateus t was sent to Pathologist at [facility]. Gram Stain 38191 Reviewed date:04/30/2024 08:50:07 AM Interpretation: Performing Lab: Notes/Report: Gram Stain JANICE Elias Gram Stain t: Gram Stain Gram Stain [facility] [id number] Gram Stain n: Gram Stain Microbiology Gram [...] 07:11 CDT Gram Stain No organisms seen. US Abdomen Limited-45933 Reviewed date:04/18/2024 02:06:08 PM Interpretation: Performing Lab: Notes/Report: lqh=[id number]&org=iSite hlk=[id number] 5&org=iSite Paracentesis Reviewed date:04/22/2024 01:39:31 PM Interpretation: Performing Lab: Notes/Report: Thyroid Stimulating Hormone (TSH) 28388 Reviewed date:03/25/2024 10:40:03 AM Interpretation: Performing Lab: Notes/Report: TSH 5.039 .358-3.740 MlU/ML % Iron Saturation (Fe & TIBC )--02033,87895 Reviewed date:03/25/2024 10:40:08 AM Interpretation: Performing Lab: Notes/Report: Iron 74 65-175 MCG/DL Per Iron assay instruction for Use(IFU), patients treated with metal-binding drugs (e.g.deferoxamine) may have depressed iron values as chelated iron may not properly react in the iron assay. Testing was performed with this assay method. TIBC 351 250-450 NG/DL % Iron Saturation 21 20-50 % Folate 09036 Reviewed date:03/25/2024 10:40:11 AM Interpretation: Performing Lab: [...] a greater than 10% bias. Sedimentation Rate 09912 Reviewed date:03/25/2024 10:40:20 AM Interpretation: Performing Lab: Notes/Report: Sed Rate 45 0-20 MM/HR CBC w\ Auto Diff 95922 Reviewed date:03/25/2024 10:40:37 AM Interpretation: Performing Lab: Notes/Report: WBC 4.1 4.5-11.0 X10'3 RBC 2.46 4.50-5.90 X10'6 Hgb 9.3 13.5-17.5 G/DL Hct 28.3 41.0-53.0 % MCV 115.0 80.0-100.0 FL MCH 37.8 27.0-31.0 PG MCHC 32.9 31.0-37.0 G/DL Platelet 253 150-400 X10'3 RDW-SD 68.5 35.0-49.0 FL RDW-CV 16.0 12.2-15.6 % MPV 11.2 9.2-12.0 FL Neutro Auto% 75.7 42.0-75.0 % Lymph Auto% 9.0 21.0-51.0 % [place] Auto% 10.9 1.7-9.3 % Eos Auto% 2.7 .0-6.0 Baso Auto% 1.2 0.0-1.0 Imm Gran% .5 .0-.4 % Neutro Abs 3.11 .80-7.70 Absolute Neutrophil Count 3110 Lymph Abs .37 .10-4.10 [place] Abs .45 .20-1.00 Eos Abs .11 .00-.40 Baso Abs .05 .00-.10 Imm Gran Abs .02 .00-.10 NRBC# .00 .00-.20 NRBC% .00 .00-.20 /100 intact WBC's Comprehensive Metabolic Pane l 29339 Reviewed date:03/25/2024 10:40:45 AM Interpretation: Performing Lab: Notes/Report: Glucose Serum 132 71-110 MG/DL Testing perfor med at [facility], [address] [place] [address] [place] [address]. CLIA ID#: [id number] BUN 63 7-21 MG/DL Creat 2.07 .57-1.17 MG/DL U-ofxguy-y-benzoquinone imine (NAPQI) is a metabolite of acetaminophen, [...] 12-78 UNIT/L Osmo Serum,Calculated 304 280-300 MOSM/KG Vitamin B12 (B) 77652 Reviewed date:03/26/2024 11:49:45 AM Interpretation: Performing Lab: Notes/Report: PzgzhljM45 655 211-911 pg/mL Scan--89722 Reviewed date:05/20/2024 07:34:13 AM Interpretation: Performing Lab: Notes/Report: Scan ordered by [employer] Expert Rules system. 4428 @ 1802 4428 PLT Appear Adequate Elliptocytes Few Hypochrom Slight Macrocytosis Marked Polychrom Few Target Cell Few Echinocyte(Carroll Cell) Frequent PSA-Total & Free 72016, 8415 4 Reviewed date:11/29/2023 04:26:13 PM Interpretation: [...] 17 %fPSA 50-59 60-69 70 or older [facility] uses the Tiffanie Free PSA electrochem[place] [address] method in conjunction with the Tiffanie PSA electrochemiluminescent Sap Security Architect: Mendez Irene MD, PhD PSA between 3 and 10 ng/mL and negative digital rectal examination cancer in individual patients. Percentage Performed By: [facility] Laboratories 19 - 25% 18% 24% 30% obtained with different assay methods should not be used CLIA Number: [id number] immunoassay method to determine the free PSA [...] older with a total [address] Schedule Confirmation Reviewed date:05/20/2024 07:34:13 AM Interpretation: Performing Lab: Notes/Report: Heart Cath Lt poss PTCA Reason For Referral Reason Profound macrocytic anemia with normal b12 and folate. Mildly elevated TSH. Diagnosis 1 Macrocytic anemia (D 53.9) Referral Organization [facility] Referring Provider First Name Jacob villanueva Referring Provider Last Name Donnie Referring Provider Speciality Internal M edicine Referred Organization [facility] Referred Provider Tania Segundo Referred Address [address] [place] [address] [place],[address], Referred Provider Specialty Hematology/O ncology General Notes Lilia Ferguson 024 02:15:09 PM >THE CLINIC IS REQUESTING THE LABS SO I HAVE FAXED THEM OVER, Farzana Lucio 03/12/2024 04:42:52 PM >faxed, Lilia Ferguson 03/21/2024 02:05:26 PM >PROGRESS NOTES IN REFERRA FILE Referral Priority Routine Medications Medication SIG (Take, Route, Frequency, Duration) Notes Start Date End Date Status Bumetanide 1 MG 2 tablet Orally bid Active Aspir-81 Active Entresto 97-103 MG 1/2 tablet Orally Twice a day Unknown Eliquis 5 MG 1 tablet Orally Twic e a day Active Tamsulosin HCl 0.4 MG 1 capsule Orally O nce a day in the evening for 90 days Active metFORMIN HCl ER 500 MG TAKE 4 TABLETS B Y MOUTH EVERY DAY for 90 Unknown Pantoprazole Sodium 40 MG 1 tablet Orall y Once a day for 90 days 10/13/2023 Active Allopurinol 100 MG TAKE 1 TABLET BY AR TH EVERY DAY for 90 Active Pseudoephedrine HCl ER 120 MG 1 tablet as needed Orally QAM for 30 days 10/13/2023 Unknown Levothyroxine Sodium 25 MCG TAKE 1 TABLE T BY MOUTH DAILY IN THE MORNING ON AN EMPTY STOMACH for 90 Active Senna Laxative Activ e DULoxetine HCl 60 MG 1 capsule Orally On ce a day for 10 days Active Iron (Ferrous Sulfate) 325 (65 Fe) MG 1 tablet Orally Three times a Week Unknown Isosorbide Dinitrate 10 MG 1 tablet Orally tid Active traMADol-Acetaminophen 37.5-325 MG 1tablet as needed for pain Orally twice daily for 60 days 05/28/2024 05/17/2025 Active hydrALAZINE HCl 10 MG 1 tablet with food Orally bid Active Farxiga 10 MG 1 tablet Orally Once a day Active Torsemide 20 MG 3 tablets as directe d Orally daily Unknown Social History Tobacco Use: Social History [...] Problem Type II diabetes mellitus without complication (192688251) Type 2 diabetes mellitus without complications (E11.9) Active confirmed Problem 11672221 Iron deficiency (E61.1) Active confirmed Problem 610684894 Major depressive disorder, recurrent, moderate (F33.1) Active confirmed Problem Tricuspid valve disorder, non-rheumatic (486177935) Nonrheumatic tricuspid (valve) insufficiency (I36.1) Active confirmed Problem Heart failure (08215982) Heart failure, unspecified (I50.9) Active confirmed Problem MIRANDA - Nonalcoholic steatohepatitis (163604490) Nonalcoholic steatohepatitis (MIRANDA) (K75.81) Active confirmed Problem 611697353 Other ascites (R18.8) Active confirmed Problem Right heart failure (435877016) Right heart failure, unspecified (I50.810) Active confirmed Problem 483498791 Type 2 diabetes mellitus without complication, without long-term current use of insulin (E11.9) Active confirmed Problem 40769104 Chronic fatigue (R53.82) Active confirmed Problem 61144091 Macrocytic anemi a (D53.9) Active confirmed Problem Chronic kidney disease (264222966) Chronic kidney disease (N18.9) Active confirmed Problem Tricuspid regurgitation (608870626) Tricuspid regurgitation (I07.1) Active confirmed Problem 13656606 Recurrent major depressive disorder, in full remission (F33.42) Active confirmed Problem 205228671 Acquired hypothyroidism (E03.9) Active confirmed Problem 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 (701438153593768) Arteriosclerosis of coronary artery (I25.10) Active confirmed Problem Cardiomyopathy (95830518) Cardiomyopathy (I42.9) Active confirmed Problem 024044484 Morbid obesity (E66.01) Active confirmed Problem 316407896492003 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, unspecified site (M1A.00X0) Active confirmed Problem 608073603 Bilateral chroni c serous otitis media (H65.23) Active confirmed Problem 04095040 Decreased urine stream (R39.198) Active confirmed Problem History of heart valve repair with prosthesis (069532468485750) Aortic valve replaced (Z95.2) Active confirmed Problem Peripheral circulatory disorder associated with diabetes mellitus (317838107) Diabetes mellitus with cardiac complication (E11.59) Active confirmed Problem Automatic implantable cardiac defibrillator in situ (742028461) Cardiac defibrillator in place (Z95.810) Active confirmed Problem Acute systolic heart failure (912695870) Acute systolic congestive heart failure (I50.21) Active confirmed Problem Paroxysmal tachycardia (63298036) Tachycardia, paroxysmal (I47.9) Active confirmed Problem History of heart valve repair with prosthesis (361960625310967) H/O prosthetic heart valve (Z95.2) Active confirmed Problem History of heart valve recipient (603585864) 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) Active confirmed Problem Dilated cardiomyopathy (152843521) Cardiomyopathy, dilated (I42.0) Active confirmed Problem Mitral valve disorder (28856043) Acute mitral insufficiency (I34.0) Active confirmed Vital Signs Heart Rate 51 /min 06/04/2024 Temperature 97.2 degrees Fahrenheit 06/04/2024 Blood pressure diastolic 70 mm Hg 06/04/2024 Oximetry 100 % 06/04/2024 Height-cm 177.8 cm 06/04/2024 Weight-kg 126.19 kg 06/04/2024 Height 70 in 06/04/2024 Blood pressure systolic 130 mm Hg 06/04/2024 Weight 278.2 lbs 06/04/2024 BMI 39.91 kg/m2 06/04/2024 Encounters Encounter Location Date Provider Diagnosis [facility] [address] [place] [address] 07/03/2024 Brigido [facility] [address] [place] [address] 09/26/2023 Brigido Lombadri [facility] [address] [place] [address] 10/18/2023 Brigido Lombradi [facility] [address] [place] [address] 10/26/2023 Brigido Lombardi [facility] [address] [place] [address] 11/28/2023 Brigido Lombardi [facility] [address] [place] [address] 01/29/2024 Brigido Encarnacion JKenna [facility] [address] [place] [address] 02/05/2024 Brigido Lomb[facility] [address] [place] [address] 03/07/2024 Brigido Fields [facility] [address] [place] [address] 04/30/2024 Gus [facility] [address] [place] [address] 05/22/2024 Brigido Fields [facility] [address] [place] [address] 06/03/2024 Brigido Fields [facility] [address] [place] [address] 06/04/2024 Gus Sepulveda [facility] [address] [place] [address] 06/05/2024 Gus Sepulveda Other ascites R18.8 [facility] [address] [place] [address] 06/06/2024 Gus Sepulveda [facility] [address] [place] [address] 06/10/2024 Gus Sepulveda [facility] [address] [place] [address] [address] [place] [address] 06/12/2024 Hilda Rankin [facility] [address] [place] [address] 06/19/2024 Hoda Mendez [facility] [address] [place] [address] 10/13/2023 Brigido Fields Type 2 diabetes mellitus without complication, without long-term current use of insulin E11.9 ; Idiopathic chronic gout without tophus, unspecified site M1A.00X0 ; Iron deficiency E61.1 and Bilateral chronic serous otitis media H65.23 [facility] [address] [place] [address] 11/21/2023 Brigido Fields Decreased urine stream R39.198 ; Type 2 diabetes mellitus without complication, without long-term current use of insulin E11.9 ; Iron deficiency E61.1 ; Recurrent major depressive disorder, in full remission F33.42 ; Morbid obesity E66.01 and Major depressive disorder, recurrent, moderate F33.1 [facility] [address] [place] [address] 03/11/2024 Brigido Fields Macrocytic anemia D53.9 and Acquired hypothyroidism E03.9 [facility] [address] [address] 04/12/2024 Brigido Fields Other ascites R18.8 [facility] [address] [place] [address] 04/17/2024 Brigido Fields Other ascites R18.8 [facility] [address] [place] [address] 06/04/2024 Gus Sepulveda Other ascites R18.8 ; Tricuspid regurgitation I07.1 ; Nonalcoholic steatohepatitis (MIRANDA) K75.81 and Diabetes mellitus with cardiac complication E11.59 [facility] [address] [place] [address] 06/05/2024 Gus Sepulveda [facility] [address] [place] [address] 01/29/2024 Brigido Fields Bronchitis J40 [facility] [address] [place] [address] 03/04/2024 Brigido Fields Chronic fatigue R53.82 Assessments Encounter Date Diagnosis (ICD Code) Assessment Notes Treat ment Notes Treatment Clinical Notes 11/21/2023 Decreased urine stream (ICD-10 - R39.198) 01/29/2024 Bronchitis (ICD-10 - J40) 01/29/2024 Bronchitis (ICD-10 - J40) 03/04/2024 Chronic fatigue (ICD-10 - R53.82) 03/11/2024 Macrocytic anemia (ICD-10 - D53.9) 03/11/2024 Acquired hypothyroidism (ICD-10 - E03.9) 04/12/2024 Other ascites (ICD-1 0 - R18.8) --x- to be completed at [facility] ---to be completed at [facility] ---to be completed at [facility] ---to be completed at [facility] 04/17/2024 Other ascites (ICD-1 0 - R18.8) --x- to be completed at [facility] ---to be completed at [facility] ---to be completed at [facility] ---to be completed at [facility] 10/13/2023 Type 2 diabetes mellitus without complication, [...] controlled with light dressing. Lab sent to [facility] via cupola operator. 04/17/2024 Other see scanned document from [facility] in patients documents. Plan Of Treatment Future Test Test Name Order Date Basic Metabolic Panel (BMP) 58125 2023 Paracentesis 06/12/2024 Paracentesis 06/19/2024 Paracentesis 06/27/2024 Paracentesis 07/03/2024 Insurance Providers Payer Name Payer Address Payer Phone Subscriber Number Group Number Insured Name Patient Relationship to Insured Coverage Start Date Coverage End Date [facility] Medicare Advantage - PPO IN NETWORK [address] [address] [place] [address] [id number] JANICE TRAN Self - patient is the insured Medications [...] (R) hip surgery x2 strokes Colonoscopy in [place], [place]- WNL per pt 2 022 Esophagogastroduodenoscopy in [facility] X - WNL per pt 2021 Hospitalization History Reason Date(Month/Year) cerebrovascular accident
--- NOTE | 2024-07-04 17:54 | PM.HP ---
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 At the time of evaluation patient is eating dinner, we have started Bumex along dobutamine, patient both stating that they would like to go home and request outpatient physical therapy and would like to keep status full code, they are requesting to see Dr. Londono as well is under the impression that we can discharge him with IV dobutamine Records reviewed from [place] Patient was put on metolazone as well up to 10 mg at some point along dobutamine and Bumex Entresto was considered but he is not a suitable candidate because of low blood pressure In short patient has history of [place] MELD score 22, ischemic cardiomyopathy status post CABG times 2 aortic root replacement for endocarditis, type 2 diabetes, A-fib on Eliquis, Review of Systems Const: Denies: fever(s) Eyes: Denies: change in vision ENMT: Denies: throat pain Card: Reports: swelling of feet/ankles; Denies: chest pain Resp: Reports: dyspnea GI: Reports: nausea : Denies: flank pain Musc: Reports: back pain Medications/Allergies Home Medications Medication Instructions Recorded Confirmed Last Taken Type allopurinol 100 mg tablet 100 mg PO DAILY #90 tabs 08/02/22 06/07/24 Unknown Rx duloxetine 60 mg capsule,delayed 60 mg PO DAILY #90 caps 08/02/22 06/07/24 Unknown Rx release tramadol 37.5 mg-acetaminophen 325 1 tab PO BID PRN Pain #60 tabs 08/02/22 06/07/24 Unknown Rx mg tablet pantoprazole 40 mg tablet,delayed 40 mg PO DAILY 04/11/24 06/07/24 Unknown History release apixaban 5 mg tablet (Eliquis) See Rx Instructions .Route 05/13/24 06/07/24 Unknown Rx .COMPLEX #180 tabs aspirin 81 mg tablet,delayed 81 mg PO DAILY 06/07/24 06/07/24 Unknown History release bumetanide 1 mg tablet 2 mg PO BID 06/07/24 06/07/24 Unknown History dapagliflozin propanediol 10 mg 10 mg PO DAILY 06/07/24 06/07/24 Unknown History tablet (Farxiga) hydralazine 10 mg tablet 10 mg PO BID 06/07/24 06/07/24 Unknown History isosorbide dinitrate 10 mg tablet 10 mg PO TID 06/07/24 06/07/24 Unknown History levothyroxine 25 mcg tablet 25 mcg PO DAILY 06/07/24 06/07/24 Unknown History Allergies Allergy/AdvReac Type Severity Reaction Status Date / Time No Known Allergies Allergy Verified 04/11/24 13:50 PFSH Acute PFSH: Medical History CHF exacerbation Ascites Liver cirrhosis Anticoagulation adequate with anticoagulant therapy Leg pain, right Atherosclerotic heart disease of [place] coronary artery without angina pectoris Gout Carotid artery stenosis with cerebral infarction AV malformation of gastrointestinal tract Dyslipidemia Type 2 diabetes mellitus A1c 6.30 March 2020 Ischemic cardiomyopathy Diabetes Hypertension ICD (implantable cardioverter-defibrillator) in place possibly St Ho device Atrial fibrillation CHF (congestive heart failure) EF ~30% CAD (coronary artery disease) Endocarditis CVA (cerebral vascular accident) TIA (transient ischemic attack) Bilateral carotid artery stenosis Patient had a stenting of the left ICA in April 2020 Surgical History 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 Hx of CABG 1997, 5V Hx of aortic valve replacement bioprosthetic, 2012 H/O carotid endarterectomy Family History Father Bleeding disorder Clotting disorder Diabetes CAD (coronary artery disease) Chronic kidney disease (CKD) Lung disease Stroke Other Family history of premature coronary artery disease Hyperlipidemia Hypertension Denies family history of Dementia Suicide Anesthesia complication Cancer Social History Smoking and tobacco/nicotine status: former use of tobacco/nicotine Alcohol intake: current Alcohol intake frequency: holidays/special occasions only Substance/Drug Use: former Date of last use: tried everything in the 60s Housing: House Vitals/I&O/Wt Last Vital Signs O2 Del Method Room Air 07/04/24 16:56 Weight last 48 hrs Weight 125 kg Physical Exam Narrative: Patient has anasarca Distended abdomen, nontender GCS 15 Nonfocal neuroexam Eating dinner Currently on Bumex and dobutamine drip Paced rhythm No active chest pain at the bedside NIH 0 No drainage at peritoneal drain site There is dressing around the peritoneal drain site A&P Assessment and plan (1) Biventricular failure: (2) CAD (coronary artery disease): Qualifiers: Coronary Disease-Associated Artery/Lesion type: [place] artery [place] vs. transplanted heart: [place] heart Associated angina: without angina Qualified Code(s): I25.10 - Atherosclerotic heart disease of [place] coronary artery without angina pectoris (3) Chronic systolic (congestive) heart failure: (4) H/O aortic root repair: (5) Shock: (6) Chronic anticoagulation: (7) Anticoagulation adequate with anticoagulant therapy: (8) Diabetes: (9) Liver cirrhosis: (10) Decompensated hepatic cirrhosis: Plan Cardiogenic shock History of cardiomyopathy status post AICD Biventricular failure Currently on dobutamine drip along Bumex Add midodrine Once pressure is better we will add metolazone is under the impression that he will need IV dobutamine at the time of discharge They want to see Dr. Londono For hypotension may require albumin as well No active signs of hepatorenal syndrome Patient was getting Bumex 3 mg/h at [place] along dobutamine 5 mics per kilo per minute [place] Patient has anasarca related to biventricular failure Recent removal of peritoneal drain secondary to leakage around the peritoneal drain site Not a TIPS candidate because of MELD score 22 Patient is stating that he would like to go home with outpatient PT referral He is full code Will keep cardiac consistent carb diet for now Sliding scale of insulin will be used History of A-fib with use of Eliquis Patient developed hemoperitoneum Eliquis was discontinued and patient required 4 units PRBC At [place] they have reintroduced Eliquis Patient seems to have guarded prognosis, both patient and seem to have poor insight and stating that we should discharge patient on IV dobutamine, I did tell them that we are not able to facilitate the patient with dobutamine pump at this facility, will consult general cardiology in the morning Attestations Medical Necessity Statement*: More than 2 midnights anticipated Diagnoses Biventricular failure I50.82 Coronary artery disease involving [place] coronary artery of [place] heart without angina pectoris I25.10 Coronary Disease-Associated Artery/Lesion type: [place] artery [place] vs. transplanted heart: [place] heart Associated angina: without angina Chronic systolic (congestive) heart failure I50.22 H/O aortic root repair Z98.890 Shock R57.9 Chronic anticoagulation Z79.01 Anticoagulation adequate with anticoagulant therapy Z79.01 Diabetes E11.9 Liver cirrhosis K74.60 Decompensated hepatic cirrhosis K72.90; K74.60
[2024-07-04] MEDS: bumetanide 25 MG in empty flexible container 1 EACH 4 MG IV ×2 (18:01→19:30)
[2024-07-04 18:10] LABS: Glucose Point of Care 133 mg/dL (70-110)
[2024-07-04] MEDS: potassium chloride ER 20 mEq Tablet 40 MEQ PO (19:28)
[2024-07-04] MEDS: acetaminophen 500 mg Tablet PO (19:28)
--- NOTE | 2024-07-04 19:34 | PC.NURSE ---
Bumex drip verified at 2 mg /h = 8 ml / hr infusing upon receiving report
[2024-07-04] MEDS: morphine IR 15 mg Tablet PO (20:26)
[2024-07-04] MEDS: midodrine 5 mg TABLET 10 MG PO (20:30)
[2024-07-04] MEDS: apixaban 5 mg Tablet PO (20:31)
[2024-07-04 23:22] LABS: Glucose Point of Care 160 mg/dL (70-110)
[2024-07-05] VITALS (66 sets, daily range): BP systolic 69–143; BP diastolic 35–117; PULSE 53–88; RESP 13–31; TEMP 35.6–36.1; O2SAT 90–99
[2024-07-05] MEDS: DOBUTamine drip 500 MG/250 ML PREMIX 18.75 MG IV ×2 (03:18→17:26)
[2024-07-05 04:21] LABS: Basophils % 0.5 %; Eosinophils # 0.1 10^3/uL (0.0-0.8); Eosinophils % 2.2 %; Hematocrit 26.5 % (37-53); Lymphocytes # 0.2 10^3/uL (0.8-4.8); Lymphocytes % 3.2 %; Mean Corpuscular HGB Conc 32.1 g/dL (30-55); Mean Corpuscular Hemoglobin 33.1 pg (27-33); Mean Corpuscular Volume 103.1 fl (82-101); Mean Platelet Volume 10.4 fL (7.4-10.4); Monocytes # 0.6 10^3/uL (0.2-0.9); Monocytes % 9.9 %; Neutrophils # 5.43 10^3/uL (1.8-7.7); Neutrophils % 83.9 %; Nucleated Red Blood Cells % 0 %; Platelet Count 152 10^3/cmm (157-399); Red Blood Count 2.57 10^6/uL (3.85-5.65); Red Cell Distribution Width 23.4 % (12.1-15.1); White Blood Count 6.47 10^3/uL (3.29-11.43)
[2024-07-05 04:39] LABS: Alanine Aminotransferase 17 U/L (0-41); Albumin Level 3.1 g/dL (3.5-5.2); Alkaline Phosphatase 153 U/L (40-130); Anion Gap 20.3 (5-19); Aspartate Amino Transferase 43 U/L (0-40); Calcium 8.4 mg/dL (8.5-10.5); Carbon Dioxide 25 mmol/L (22-29); Chloride 90 mmol/L (98-107); Creatinine Clr Calc Pharmacy 24.3518; Globulin 2.5 g/dL (1.3-4.6); Glucose 153 mg/dL (65-115); Magnesium 2.1 mg/dL (1.7-2.3); Osmolality Calculated 302 mOsm/kg (285-295); Potassium 4.3 mmol/L (3.5-5.1); Sodium 131 mmol/L (136-145); Total Bilirubin 0.6 mg/dL (0.15-1.2); Total Protein 5.6 g/dL (6.6-8.7)
[2024-07-05 04:57] LABS: Blood Urea Nitrogen 88 mg/dL (8-23)
--- NOTE | 2024-07-05 06:58 | PC.NURSE ---
Soft blood pressures reported to Dr. Delacruz this am, instructed to hold bumex, place patient in trendelenberg and recheck bp in 15 minutes. Recheck improved but map still low at 66. Patient out of trendelenberg- as had to urinate. Jamal MCKINNEY given report to follow up with Md for further direction on Bumex drip.
[2024-07-05 08:40] LABS: Glucose Point of Care 131 mg/dL (70-110)
[2024-07-05] MEDS: potassium chloride ER 20 mEq Tablet 40 MEQ PO ×2 (08:52→20:12)
[2024-07-05] MEDS: levothyroxine 25 mcg Tablet PO (08:52)
[2024-07-05] MEDS: allopurinol 100 mg Tablet PO (08:52)
[2024-07-05] MEDS: midodrine 5 mg TABLET 10 MG PO ×3 (08:52→20:12)
[2024-07-05] MEDS: apixaban 5 mg Tablet PO (08:53)
[2024-07-05] MEDS: duloxetine 60 mg Capsule PO (08:53)
--- NOTE | 2024-07-05 10:54 | PM.CONSULT ---
Providers/Reason For Consult Consulting Physician/Specialty*: LISA Londono MD/cardiology Reason for Consult*: Patient with end-stage heart disease, class IV heart failure/worsening kidney function Attending Physician: Carlita Ferrer MD Primary Care Provider: Teo Fields MD History of Present Illness History of Present Illness Abhay Varghese is a 73 year old male with a history of cardiomyopathy, congestive heart failure, MIRANDA with severe ascites requiring multiple large-volume paracentesis, was recently transferred to [facility] to consider TIPS. Patient had a right heart catheterization at the [facility]. The evaluation was consistent with SEWER HAND pulmonary hypertension. His ascites was thought to be mostly from the severe heart failure. He was found to be not a candidate for TIPS. He was found to have persistently high BUN/creatinine. Hemodialysis was attempted. Apparently he could not tolerate the hemodialysis because of severe hypotension. So it was decided not to continue hemodialysis. Entresto was tried for his heart failure but because of the hypotension, it had to be discontinued. He also was tried on hydralazine for afterload reduction. But because of the hypotension, it was taken off. He responded to IV dobutamine and Bumex for a while. However later on his urine output started declining. The creatinine remains elevated. He was not found to be a candidate for LVAD. So the patient and the family has decided to come back to [place] to continue the management locally. Patient denies any chest pain or chest tightness. No fever or chills. No similar cough. He is practically bedridden. He is currently on 5 mics per KG per minute of dobutamine and Bumex drip of 4 mg/h. He is right heart catheterization revealed elevated right and left heart filling pressures. Moderate pulmonary hypertension. The pulmonary vascular resistance was 4.25. The cardiac output was 1.98 L/min/m? His creatinine was staying around 2.8 during the hospital stay. His LV ejection fraction was around 25 to 30%.He was found to have episodes of PVCs and nonsustained ventricular tachycardia on the monitor. The CUSTOMER ENGAGEMENT SPECIALIST-D interrogation revealed properly functioning device. He was found to be atrial fibrillation almost 100% at times. He was on long-term oral anticoagulation. Because of his anemia, chronic kidney disease and hemoperitoneum, he was taken off the anticoagulation. This patient had multiple hospital admissions in the recent past with a prolonged hospital stay. This patient has an extensive and complicated cardiac history.He used to live in [facility] and moved to this area approximately 4 years ago. He is known to have coronary disease and had a coronary artery bypass surgery, 5 vessel?, In 1997. Since then, he had PCI. In 2012, he had an aortic valve replacement with a bioprosthetic valve. 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 For which he had to undergo the third open heart surgery when he had the aortic root replaced. He is known to have a cardiomyopathy with ejection fraction around 30%. He had a CUSTOMER ENGAGEMENT SPECIALIST-D placement in April of 2018. He is down to have chronic atrial fibrillation and is on long-term oral anticoagulation. Has a history of recurrent heart failure. Had a CVA in the past and had carotid artery stenting . Review of Systems Narrative: CONSTITUTIONAL: No fever or chills. EYES: No blurring of vision or other visual disturbances lately. ENT: No hoarseness of voice, auditory disturbances or sore throat. CARDIOVASCULAR: As mentioned above. RESPIRATORY: No significant cough. GASTROINTESTINAL: Ascites, status post multiple large-volume paracentesis. GENITOURINARY: Chronic kidney disease as mentioned above. INTEGUMENTARY: No skin rashes or history of skin cancer. NEURO: Multiple hospital admissions in the past for altered mental status. PSYCHIATRIC: No history of psychosis or major depression. HEMATOLOGIC: Chronic anemia, could be multifactorial ENDOCRINE: No history of polyuria or polydipsia. MUSCULOSKELETAL: No recent joint pain or swelling. ALLERGY/IMMUNOLOGY: As mentioned above. Medications/Allergies Home Medications Medication Instructions Recorded Confirmed Last Taken Type allopurinol 100 mg tablet 100 mg PO DAILY #90 tabs 08/02/22 07/05/24 07/04/24 Rx duloxetine 60 mg capsule,delayed 60 mg PO DAILY #90 caps 08/02/22 07/05/24 07/04/24 Rx release tramadol 37.5 mg-acetaminophen 325 1 tab PO BID PRN Pain #60 tabs 08/02/22 07/05/24 Unknown Rx mg tablet pantoprazole 40 mg tablet,delayed 40 mg PO DAILY 04/11/24 07/05/24 07/04/24 History release apixaban 5 mg tablet (Eliquis) See Rx Instructions .Route 05/13/24 07/05/2407/04/24 Rx .COMPLEX #180 tabs aspirin 81 mg tablet,delayed 81 mg PO DAILY 06/07/24 07/05/24 07/04/24 History release bumetanide 1 mg tablet 2 mg PO BID 06/07/24 07/05/24 07/04/24 History hydralazine 10 mg tablet 10 mg PO BID 06/07/24 07/05/24 07/04/24 History isosorbide dinitrate 10 mg tablet 10 mg PO TID 06/07/24 07/05/24 07/04/24 History levothyroxine 25 mcg tablet 25 mcg PO DAILY 06/07/24 07/05/24 07/04/24 History spironolactone 50 mg tablet 50 mg PO BID 07/05/24 07/05/24 07/04/24 History tamsulosin 0.4 mg capsule 0.4 mg PO QPM 07/05/24 07/05/24 07/03/24 History Allergies Allergy/AdvReac Type Severity Reaction Status Date / Time No Known Allergies Allergy Verified 04/11/24 13:50 Current Medications Generic Name Dose Route Start Last Admin Trade Name Freq PRN Reason Stop Dose Admin Acetaminophen 500 mg 07/04/24 17:54 07/04/24 19:28 Acetaminophen 500 Mg Tablet PO 500 mg Q4H PRN Administration fever Allopurinol 100 mg 07/05/24 09:00 07/05/24 08:52 Allopurinol 100 Mg Tablet PO 100 mg DAILY BRYANT Administration Apixaban 5 mg 07/04/24 20:00 07/05/24 08:53 Apixaban 5 Mg Tablet PO 5 mg BID@0800,2000 BRYANT Administration Duloxetine HCl 60 mg 07/05/24 09:00 07/05/24 08:53 Duloxetine 60 Mg Capsule PO 60 mg DAILY BRYANT Administration Dobutamine HCl/Dextrose 500 mg in 250 mls @ 0 mls/hr 07/04/24 17:45 07/05/24 03:18 Dobutamine Drip IV 5 mcg/kg/min .Q0M BRYANT 18.75 mls/hr Administration Protocol Per Protocol Bumetanide 25 mg/ N/A 100 mls @ 8 mls/hr 07/04/24 18:00 07/05/24 05:22 IV 0 mg/hr .[id number] BRYANT 0 mls/hr Infusion 2 MG/HR Insulin Human Lispro 0 unit 07/04/24 18:00 07/05/24 08:54 Insulin Lispro 100 Unit/1 Ml SUBCUT Not Given [facility] Protocol Levothyroxine Sodium 25 mcg 07/05/24 09:00 07/05/24 08:52 Levothyroxine 25 Mcg Tablet PO 25 mcg DAILY BRYANT Administration Midodrine 10 mg 07/04/24 21:00 07/05/24 08:52 Midodrine 5 Mg Tablet PO 10 mg TID BRYANT Administration Morphine Sulfate 15 mg 07/04/24 17:54 07/04/24 20:26 Morphine Ir 15 Mg Tablet PO 15 mg Q6H PRN Administration MODERATE PAIN Potassium Chloride 40 meq 07/04/24 19:15 07/05/24 08:52 Potassium Chloride Er 20 Meq Tablet PO 40 meq Q12H BRYANT Administration PFSH Acute PFSH: Medical History CHF exacerbation Ascites Liver cirrhosis Anticoagulation adequate with anticoagulant therapy Leg pain, right Atherosclerotic heart disease of [place] coronary artery without angina pectoris Gout Carotid artery stenosis with cerebral infarction AV malformation of gastrointestinal tract Dyslipidemia Type 2 diabetes mellitus A1c 6.30 March 2020 Ischemic cardiomyopathy Diabetes Hypertension ICD (implantable cardioverter-defibrillator) in place possibly St Ho device Atrial fibrillation CHF (congestive heart failure) EF ~30% CAD (coronary artery disease) Endocarditis CVA (cerebral vascular accident) TIA (transient ischemic attack) Bilateral carotid artery stenosis Patient had a stenting of the left ICA in April 2020 Surgical History 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 Hx of CABG 1997, 5V Hx of aortic valve replacement bioprosthetic, 2012 H/O carotid endarterectomy Family History Father Bleeding disorder Clotting disorder Diabetes CAD (coronary artery disease) Chronic kidney disease (CKD) Lung disease Stroke Other Family history of premature coronary artery disease Hyperlipidemia Hypertension Denies family history of Dementia Suicide Anesthesia complication Cancer Social History Smoking and tobacco/nicotine status: former use of tobacco/nicotine Alcohol intake: current Alcohol intake frequency: holidays/special occasions only Substance/Drug Use: former Date of last use: tried everything in the 60s Housing: House Vitals/I&O/Wt Last Vital Signs Temp 97.8 F 07/04/24 23:00 Pulse 70 07/05/24 09:34 Resp 16 07/05/24 09:34 BP 121/56 07/05/24 08:00 Pulse Ox 96 07/05/24 09:34 O2 Del Method Room Air 07/05/24 09:34 07/04/24 07/05/24 07/05/24 22:59 06:59 14:59 Intake Total 456.200 / 456.200 178.4 / 634.600 Output Total 200 / 200 Balance 456.200 / 456.200 -21.6 / 434.600 Weight last 48 hrs Weight 276 lb 1.6 oz Weight 275 lb 9.245 oz Physical Exam Narrative: GENERAL: The patient is alert and oriented times three. Not in any acute distress. Chronically ill looking. HEENT: Moderate pallor, no icterus or lymphadenopathy.Oral cavity: There are no mucous membrane lesions. NECK: Trachea appears to be central. No masses noted. No JVD or thyromegaly appreciated. RESPIRATORY: Chest is symmetrical. No intercostals muscle retraction or any accessory muscle activation. There is no chest wall tenderness. The breath sounds are diminished in the bases. Dependent edema on the posterior aspect of the lower chest. BREASTS: Deferred. HEART: The aortic valve opening and closing sounds are normal. Variable intensity. Systolic murmur grade 3 or 6 in the mitral area. No diastolic murmurs. ABDOMEN: Markedly distended. Pulses are normally heard. : Deferred. RECTAL: Deferred. LYMPHATIC: No lymphadenopathy noted in the neck. EXTREMITIES: 3+ edema both lower extremities. No cyanosis. MUSCULOSKELETAL: No acute joint deformities or swelling SKIN: There are no significant rashes or ecchymosis NEUROPSYCHIATRIC: The patient is alert and oriented x3. Pleasant but ill looking. No focal motor deficits. Data 07/05/24 04:02 07/05/24 04:02 Other Labs: Laboratory Last Values WBC 6.47 10^3/uL (3.29-11.43) 07/05/24 04:02 RBC 2.57 10^6/uL (3.85-5.65) L 07/05/24 04:02 Hgb 8.50 g/dL (11.27-16.99) L 07/05/24 04:02 Hct 26.5 % (37-53) L 07/05/24 04:02 MCV 103.1 fl (82-101) H 07/05/24 04:02 MCH 33.1 pg (27-33) H 07/05/24 04:02 MCHC 32.1 g/dL (30-55) 07/05/24 04:02 RDW 23.4 % (12.1-15.1) H 07/05/24 04:02 Plt Count 152 10^3/cmm (157-399) L 07/05/24 04:02 MPV 10.4 fL (7.4-10.4) 07/05/24 04:02 Neut % (Auto) 83.9 % 07/05/24 04:02 Lymph % (Auto) 3.2 % 07/05/24 04:02 [place] % (Auto) 9.9 % 07/05/24 04:02 Eos % (Auto) 2.2 % 07/05/24 04:02 Baso % (Auto) 0.5 % 07/05/24 04:02 Neut # (Auto) 5.43 10^3/uL (1.8-7.7) 07/05/24 04:02 Lymph # (Auto) 0.2 10^3/uL (0.8-4.8) L 07/05/24 04:02 [place] # (Auto) 0.6 10^3/uL (0.2-0.9) 07/05/24 04:02 Eos # (Auto) 0.1 10^3/uL (0.0-0.8) 07/05/24 04:02 Baso # (Auto) 0.0 10^3/uL (0.0-0.1) 07/05/24 04:02 Nucleated RBC % (auto) 0 % 07/05/24 04:02 Nucleated RBCs # 0.0 /100WBC 07/05/24 04:02 Sodium 131 mmol/L (136-145) L 07/05/24 04:02 Potassium 4.3 mmol/L (3.5-5.1) 07/05/24 04:02 Chloride 90 mmol/L (98-107) L 07/05/24 04:02 Carbon Dioxide 25 mmol/L (22-29) 07/05/24 04:02 Anion Gap 20.3 (5-19) H 07/05/24 04:02 BUN 88 mg/dL (8-23) H* 07/05/24 04:02 Creatinine 3.8 mg/dL (0.7-1.2) H 07/05/24 04:02 GFR Calculation Not Reportable 07/05/24 04:02 Glucose 153 mg/dL (65-115) H 07/05/24 04:02 POC Glucose 131 mg/dL (70-110) H 07/05/24 08:36 Calculated Osmolality 302 mOsm/kg (285-295) H 07/05/24 04:02 Calcium 8.4 mg/dL (8.5-10.5) L 07/05/24 04:02 Magnesium 2.1 mg/dL (1.7-2.3) 07/05/24 04:02 Total Bilirubin 0.6 mg/dL (0.15-1.2) 07/05/24 04:02 AST 43 U/L (0-40) H 07/05/24 04:02 ALT 17 U/L (0-41) 07/05/24 04:02 Alkaline Phosphatase 153 U/L (40-130) H 07/05/24 04:02 Total Protein 5.6 g/dL (6.6-8.7) L 07/05/24 04:02 Albumin 3.1 g/dL (3.5-5.2) L 07/05/24 04:02 Globulin 2.5 g/dL (1.3-4.6) 07/05/24 04:02 Other data: EKG from 06/07/2024 showed 100% V paced rhythm A&P Assessment and plan (1) Biventricular failure: Patient is on a Bumex drip. Apparently he was found to be not responding to any p.o. diuretics. He also on IV Dobutrex. His urine output has been low. We may try intermittent dobutamine fusion, if the blood pressure tolerates. Apparently he could not tolerate Entresto or hydralazine in the past. He also could not tolerate hemodialysis. May need to consider other diuretic agents (2) Ischemic cardiomyopathy: Patient is LV ejection fraction of 25 to 30%. Apparently the patient could not tolerate Entresto (3) Atherosclerotic heart disease of [place] coronary artery without angina pectoris: Seems to be stable with no chest pain. Qualifiers: [place] vs. transplanted heart: [place] heart Qualified Code(s): I25.10 - Atherosclerotic heart disease of [place] coronary artery without angina pectoris (4) Hx of aortic valve replacement: Valve function appears to be appropriate. (5) Decompensated hepatic cirrhosis: Continue the current management. Found to be not a candidate for TIPS. (6) Ascites: Consider paracentesis for symptom relief. Qualifiers: Ascites type: other type Qualified Code(s): R18.8 - Other ascites (7) Microcytic anemia: Is a blood count remained stable, may consider anticoagulation. (8) ICD (implantable cardioverter-defibrillator) in place: Found to be functioning okay. Continue on the current management. (9) Atrial fibrillation: The ventricular rate is under control. Patient is off the oral anticoagulation. Qualifiers: Atrial fibrillation type: permanent Qualified Code(s): I48.21 - Permanent atrial fibrillation (10) Bilateral carotid artery stenosis: Stable with no specific symptoms. Plan Discussed with the patient and his . I reviewed his medical records from the [facility] in [place] In view of the multiple organ failure and poor response to the current management, patient's prognosis is very poor. Will continue the IV Dobutrex for the time being. We may try for intermittent infusion, if feasible. If the urine output is not improving, may consider other diuretic agents. The nephrology input would be appropriate. Patient may be kept on the current medications. Based on the clinical progress, further recommendations will be made. Thank you for the opportunity to evaluate this patient and make these recommendations Coding Level of Care Code 32182 Diagnoses Biventricular failure I50.82 Ischemic cardiomyopathy I25.5 Atherosclerosis of [place] coronary artery of [place] heart without angina pectoris I25.10 [place] vs. transplanted heart: [place] heart Hx of aortic valve replacement Z95.2 Decompensated hepatic cirrhosis K72.90; K74.60 Other ascites R18.8 Ascites type: other type Microcytic anemia D50.9 ICD (implantable cardioverter-defibrillator) in place Z95.810 Permanent atrial fibrillation I48.21 Atrial fibrillation type: permanent Bilateral carotid artery stenosis I65.23 Time Spent (min) 90
[2024-07-05 12:12] LABS: Glucose Point of Care 202 mg/dL (70-110)
[2024-07-05] MEDS: sennosides-docusate Tablet 1 TAB PO (12:31)
[2024-07-05] MEDS: cefTRIAXone 2,000 mg SDV 2000 MG IVP (12:31)
[2024-07-05] MEDS: morphine IR 15 mg Tablet PO ×2 (12:31→20:11)
[2024-07-05] MEDS: insulin lispro 100 unit/1 mL SUBCUT (12:32)
--- NOTE | 2024-07-05 12:43 | P.PN_ITS ---
Subjective 2 Subjective: Seen this morning. Labs reviewed this morning. Records from [facility] available in the chart. Discussed with Dr. Londono at length as well. Discussed with patient regarding plan today. at bedside. Patient is in good spirits. Complains of tense ascites. Vitals/I&O/Wt Last Vital Signs Temp 97.8 F 07/04/24 23:00 Pulse 71 07/05/24 12:00 Resp 17 07/05/24 12:00 BP 116/35 07/05/24 12:00 Pulse Ox 91 07/05/24 12:00 O2 Del Method Room Air 07/05/24 12:00 07/04/24 07/05/24 07/05/24 22:59 06:59 14:59 Intake Total 456.200 / 456.200 178.4 / 634.600 Output Total 200 / 200 Balance 456.200 / 456.200 -21.6 / 434.600 Weight last 48 hrs Weight 125.237 kg Weight 125 kg Physical Exam 2 Narrative: Patient has anasarca Distended abdomen, nontender GCS 15 Nonfocal neuroexam Eating dinner Currently on Bumex and dobutamine drip Paced rhythm No active chest pain at the bedside NIH 0 No drainage at peritoneal drain site There is dressing around the peritoneal drain site Data 07/05/24 04:02 07/05/24 04:02 A&P Assessment and plan (1) Biventricular failure: (2) CAD (coronary artery disease): Qualifiers: Coronary Disease-Associated Artery/Lesion type: [place] artery [place] vs. transplanted heart: [place] heart Associated angina: without angina Qualified Code(s): I25.10 - Atherosclerotic heart disease of [place] coronary artery without angina pectoris (3) Chronic systolic (congestive) heart failure: (4) H/O aortic root repair: (5) Shock: (6) Chronic anticoagulation: (7) Anticoagulation adequate with anticoagulant therapy: (8) Diabetes: (9) Liver cirrhosis: (10) Decompensated hepatic cirrhosis: Plan Cardiogenic shock History of cardiomyopathy status post AICD Biventricular failure Currently on dobutamine drip along Bumex Add midodrine Once pressure is better we will add metolazone is under the impression that he will need IV dobutamine at the time of discharge They want to see Dr. Londono For hypotension may require albumin as well No active signs of hepatorenal syndrome Patient was getting Bumex 3 mg/h at [facility] along dobutamine 5 mics per kilo per minute [place] Patient has anasarca related to biventricular failure Recent removal of peritoneal drain secondary to leakage around the peritoneal drain site Not a TIPS candidate because of MELD score 22 Patient is stating that he would like to go home with outpatient PT referral He is full code Will keep cardiac consistent carb diet for now Sliding scale of insulin will be used History of A-fib with use of Eliquis Patient developed hemoperitoneum Eliquis was discontinued and patient required 4 units PRBC At [facility] they have reintroduced Eliquis Patient seems to have guarded prognosis, both patient and seem to have poor insight and stating that we should discharge patient on IV dobutamine, I did tell them that we are not able to facilitate the patient with dobutamine pump at this facility, will consult general cardiology in the morning 07/05 Will discuss with interventional radiology if paracentesis can be performed today. However patient is back on Eliquis. Not sure if paracentesis can be performed safely at this time. Will consult nephrology. Creatinine 3.8 today. Patient may be progressing towards hepatorenal syndrome. Currently on dobutamine drip. Will discuss with Dr. Londono in detail. Will stop dobutamine for short period of time to see how patient does. Will recheck labs in AM. Continue midodrine, potassium, ceftriaxone Patient is not a candidate for TIPS or LVAD Case management consulted and aware. Patient carries a guarded prognosis. Family is well aware of this including the patient. Did not address CODE STATUS today. They were seen by palliative care prior to discharge. Patient and family does agree that there may be a fatal event for the patient given his current condition. They understand that very well. Attestations 2 Medical Necessity Statement*: Currently on dobutamine drip. Requires continued ICU stay. Diagnoses Biventricular failure I50.82 Coronary artery disease involving [place] coronary artery of [place] heart without angina pectoris I25.10 Coronary Disease-Associated Artery/Lesion type: [place] artery [place] vs. transplanted heart: [place] heart Associated angina: without angina Chronic systolic (congestive) heart failure I50.22 H/O aortic root repair Z98.890 Shock R57.9 Chronic anticoagulation Z79.01 Anticoagulation adequate with anticoagulant therapy Z79.01 Diabetes E11.9 Liver cirrhosis K74.60 Decompensated hepatic cirrhosis K72.90; K74.60
[2024-07-05 13:30] LABS: Procalcitonin 0.25 ng/mL (0-0.5)
--- NOTE | 2024-07-05 15:45 | P.CONIM_ITS ---
Providers/Reason For Consult 2 Consulting Physician/Specialty*: kali Morales md / telenephrology Reason for Consult*: jonathan/ ESRD care Requesting Physician: DR Ferrer Attending Physician: Carlita Ferrer MD Primary Care Provider: Teo Fields MD History of Present Illness History of Present Illness Abhay Varghese is a 73 year old male with a complicated history of cardiomyopathy heart failure both systolic and diastolic, MIRANDA, severe ascites requiring multiple large-volume paracentesis. Patient was recently transferred to [facility] for consideration of TIPS. Had a right heart catheterization they are consistent with pulmonary hypertension was felt that his ascites was due to severe heart failure is not felt to be a candidate for TIPS he had elevated BUN and creatinine was felt to have [place] cardiorenal syndrome was attempted on dialysis per the chart he was not able to tolerate it due to severe hypotension over the patient still has a dialysis catheter and the patient is unable to tell me further. The patient did respond to IV dobutamine and Bumex. His creatinines been rising. The patient was felt not to be a candidate for LVAD. The patient has an ICD and is found to be in A-fib most of the time. 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 Patient has history of CVA and carotid artery stenting. When I see the patient now he is back from [facility] he complains of difficulty urinating. He does not want a Vazquez if possible. The patient states that he wants to leave and go home with dialysis IV medications if possible. Review of Systems 2 Narrative: Denies shortness of breath at rest. Denies chest pain. He has abdominal swelling and distention he had a peritoneal catheter removed today as he was leaking around it. He has difficulty urinating pain with urination. And he has significant leg edema and poor appetite. He has some nausea. Medications/Allergies Home Medications Medication Instructions Recorded Confirmed Last Taken Type allopurinol 100 mg tablet 100 mg PO DAILY #90 tabs 08/02/22 07/05/24 07/04/24 Rx duloxetine 60 mg capsule,delayed 60 mg PO DAILY #90 caps 08/02/22 07/05/24 07/04/24 Rx release tramadol 37.5 mg-acetaminophen 325 1 tab PO BID PRN Pain #60 tabs 08/02/22 07/05/24 Unknown Rx mg tablet pantoprazole 40 mg tablet,delayed 40 mg PO DAILY 04/11/24 07/05/24 07/04/24 History release apixaban 5 mg tablet (Eliquis) See Rx Instructions .Route 05/13/24 07/05/24 07/04/24 Rx .COMPLEX #180 tabs aspirin 81 mg tablet,delayed 81 mg PO DAILY 06/07/24 07/05/24 07/04/24 History release bumetanide 1 mg tablet 2 mg PO BID 06/07/24 07/05/24 07/04/24 History hydralazine 10 mg tablet 10 mg PO BID 06/07/24 07/05/24 07/04/24 History isosorbide dinitrate 10 mg tablet 10 mg PO TID 06/07/24 07/05/24 07/04/24 History levothyroxine 25 mcg tablet 25 mcg PO DAILY 06/07/24 07/05/24 07/04/24 History spironolactone 50 mg tablet 50 mg PO BID 07/05/24 07/05/24 07/04/24 History tamsulosin 0.4 mg capsule 0.4 mg PO QPM 07/05/24 07/05/24 07/03/24 History Allergies Allergy/AdvReac Type Severity Reaction Status Date / Time No Known Allergies Allergy Verified 04/11/24 13:50 Current Medications Generic Name Dose Route Start Last Admin Trade Name Freq PRN Reason Stop Dose Admin Acetaminophen 500 mg 07/04/24 17:54 07/04/24 19:28 Acetaminophen 500 Mg Tablet PO 500 mg Q4H PRN Administration fever Allopurinol 100 mg 07/05/24 09:00 07/05/24 08:52 Allopurinol 100 Mg Tablet PO 100 mg DAILY BRYANT Administration Apixaban 5 mg 07/04/24 20:00 07/05/24 08:53 Apixaban 5 Mg Tablet PO 5 mg BID@0800,2000 BRYANT Administration Ceftriaxone Sodium 2,000 mg 07/05/24 09:15 07/05/24 12:31 Ceftriaxone 2,000 Mg Sdv IVP 2,000 mg Q24H BRYANT Administration Duloxetine HCl 60 mg 07/05/24 09:00 07/05/24 08:53 Duloxetine 60 Mg Capsule PO 60 mg DAILY BRYANT Administration Dobutamine HCl/Dextrose 500 mg in 250 mls @ 0 mls/hr 07/04/24 17:45 07/05/24 03:18 Dobutamine Drip IV 5 mcg/kg/min .Q0M BRYANT 18.75 mls/hr Administration Protocol Per Protocol Bumetanide 25 mg/ N/A 100 mls @ 8 mls/hr 07/04/24 18:00 07/05/24 05:22 IV 0 mg/hr .[id number] BRYANT 0 mls/hr Infusion 2 MG/HR Insulin Human Lispro 0 unit 07/04/24 18:00 07/05/24 12:32 Insulin Lispro 100 Unit/1 Ml SUBCUT 6 unit TIDWM BRYANT Administration Protocol Levothyroxine Sodium 25 mcg 07/05/24 09:00 07/05/24 08:52 Levothyroxine 25 Mcg Tablet PO 25 mcg DAILY BRYANT Administration Midodrine 10 mg 07/04/24 21:00 07/05/24 08:52 Midodrine 5 Mg Tablet PO 10 mg TID BRYANT Administration Morphine Sulfate 15 mg 07/04/24 17:54 07/05/24 12:31 Morphine Ir 15 Mg Tablet PO 15 mg Q6H PRN Administration MODERATE PAIN Potassium Chloride 40 meq 07/04/24 19:15 07/05/24 08:52 Potassium Chloride Er 20 Meq Tablet PO 40 meq Q12H BRYANT Administration Senna/Docusate Sodium 1 tab 07/05/24 09:00 07/05/24 12:31 Sennosides-Docusate Tablet PO 1 tab DAILY BRYANT Administration PFSH Acute 2 PFSH: Medical History CHF exacerbation Ascites Liver cirrhosis Anticoagulation adequate with anticoagulant therapy Leg pain, right Atherosclerotic heart disease of [place] coronary artery without angina pectoris Gout Carotid artery stenosis with cerebral infarction AV malformation of gastrointestinal tract Dyslipidemia Type 2 diabetes mellitus A1c 6.30 March 2020 Ischemic cardiomyopathy Diabetes Hypertension ICD (implantable cardioverter-defibrillator) in place possibly [facility] device Atrial fibrillation CHF (congestive heart failure) EF ~30% CAD (coronary artery disease) Endocarditis CVA (cerebral vascular accident) TIA (transient ischemic attack) Bilateral carotid artery stenosis Patient had a stenting of the left ICA in April 2020 Surgical History 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 Hx of CABG 1998, 5V Hx of aortic valve replacement bioprosthetic, 2013 H/O carotid endarterectomy Family History Father Bleeding disorder Clotting disorder Diabetes CAD (coronary artery disease) Chronic kidney disease (CKD) Lung disease Stroke Other Family history of premature coronary artery disease Hyperlipidemia Hypertension Denies family history of Dementia Suicide Anesthesia complication Cancer Social History Smoking and tobacco/nicotine status: former use of tobacco/nicotine Alcohol intake: current Alcohol intake frequency: holidays/special occasions only Substance/Drug Use: former Date of last use: tried everything in the 60s Housing: House Vitals/I&O/Wt Last Vital Signs Temp 97.8 F 07/04/24 23:00 Pulse 71 07/05/24 12:00 Resp 15 07/05/24 12:31 BP 116/35 07/05/24 12:00 Pulse Ox 90 07/05/24 12:31 O2 Del Method Room Air 07/05/24 12:00 07/05/24 07/05/24 07/05/24 06:59 14:59 22:59 Intake Total 178.4 / 634.600 Output Total 200 / 200 Balance -21.6 / 434.600 Weight last 48 hrs Weight 125.237 kg Weight 125 kg Physical Exam 2 Narrative: Obese man in bed not using oxygen saturating well. Vital signs noted. HEENT normocephalic atraumatic neck is supple lungs have dull bases. Heart irregular with systolic murmurs. Abdomen distended positive bowel sounds positive ascites. Extremities have bilateral edema 2+. Neuro awake and alert he is oriented he follows commands and is interactive however he tells me there is a lot going on and not able to answer questions appropriately. Dialysis access right IJ permacath. Data 07/05/24 04:02 07/05/24 04:02 A&P Assessment and plan (1) Acute kidney injury superimposed on CKD: 73-year-old gentleman heart failure combined systolic and diastolic with valvular heart disease. Cardiac cirrhosis increased pulmonary hypertension, acute on chronic renal failure, hypothyroidism, gout, diabetes, A-fib. 1. Heart failure acute on chronic systolic and diastolic patient has a EF of 25 to 30% not able to tolerate Entresto. The patient has an ICD patient is currently in A-fib. 2. Acute on chronic renal failure likely from hypotension cardiac disease and secondary liver disease giving him hypotension hemodynamically mediated diseases with cardio hepatorenal syndrome. Patient attempted dialysis at [place] and had difficulty. No emergent need for dialysis today. Will assess for dialysis in the morning. Will check a renal ultrasound to look for obstruction. 3. Anemia hemoglobin is stable. Platelets improved to 152 monitor 4. Hyponatremia likely from renal failure liver failure and heart failure. Monitor with diuresis and need for dialysis. 5. Diabetic control Medications reviewed. The patient was seen and examined using audiovisual equipment with the aid of a nurse. Who examined the patient. The patient consents to hemodialysis and to telehealth. Plan See above Consult Attestations 2 Medical Necessity Statement: Hypotension, acute on chronic combined systolic and diastolic dysfunction, cirrhosis, confusion., Acute on chronic renal failure. Time Spent in Patient Care: Greater than 35 minutes (>than 50% of time spent in counselling and/or direct pt care on unit) . Coding Level of Care Code Acute Code for Chg Fwd Diagnoses Acute kidney injury superimposed on CKD N17.9; N18.9
[2024-07-05] MEDS: sodium chloride 0.9% 250 ML IV (15:53)
[2024-07-05] MEDS: albumin 12.5 GM/250 ML VIAL IV (15:54)
--- NOTE | 2024-07-05 15:59 | USR_ITS ---
PROCEDURE INFORMATION: Exam: US Retroperitoneal, Complete, Kidneys and Bladder Exam date and time: 07/05/2024 5:20 PM Age: 73 years old Clinical indication: Abnormal findings; Abnormal lab test; Other: Obie TECHNIQUE: Imaging protocol: Real-time ultrasound of the retroperitoneum with image documentation. Complete exam focused on the bilateral kidneys and urinary bladder. COMPARISON: CT abdomen pelvis w con* [id number] 06/14/2024 10:39 AM FINDINGS: Right kidney: Normal. No stones. No hydronephrosis. The right kidney measures 10.3 cm in length. Left kidney: Normal. No stones. No hydronephrosis. The left kidney measures 11.4 cm in length. Urinary bladder: Not imaged. Intraperitoneal space: Malaise moderate volume ascites most pronounced in the right upper quadrant. US/US renal BI* [id number] IMPRESSION: 1. Unremarkable kidneys and bladder. 2. Moderate ascites.
--- NOTE | 2024-07-05 16:21 | PC.NURSE ---
Patient's bood pressure was 88/44. Dr. Ferrer was notified. She ordered to give a 250 cc bolus of NS, Albumin and restart dobutamine. Dr. Londono was also notified and he ordered to give what Doctor Carissa had ordered.
[2024-07-05 17:19] LABS: Cortisol Random 15.91 ug/dL (2.47-19.5); Thyroid Stimulating Hormone 16.99 uIU/mL (0.27-4.20)
[2024-07-05 17:26] LABS: Glucose Point of Care 105 mg/dL (70-110)
--- NOTE | 2024-07-05 18:30 | PC.NURSE ---
Patient's blood pressure started trending down to 69/55. Doctor Eric was contacted and he ordered levophed to be started.
[2024-07-05] MEDS: norepinephrine 4 MG/250 ML BAG 30 MG (18:51)
[2024-07-05 21:12] LABS: Glucose Point of Care 85 mg/dL (70-110)
[2024-07-05 21:50] LABS: Hepatitis B Surface AB < 3.5 (11.5-1000); Hepatitis B Surface Antigen Non-Reactive (Nonreactive); Hepatitis C Virus Antibody Non-Reactive (Nonreactive)
[2024-07-05 23:18] LABS: Glucose Point of Care 98 mg/dL (70-110)
[2024-07-06] VITALS (101 sets, daily range): BP systolic 84–135; BP diastolic 41–104; PULSE 63–78; RESP 11–39; TEMP 35.7–36.7; O2SAT 81–98
[2024-07-06 02:43] LABS: Glucose Point of Care 87 mg/dL (70-110)
[2024-07-06 03:35] LABS: Basophils % 0.3 %; Eosinophils # 0.1 10^3/uL (0.0-0.8); Eosinophils % 1.4 %; Hematocrit 27.1 % (37-53); Lymphocytes # 0.1 10^3/uL (0.8-4.8); Lymphocytes % 1.5 %; Mean Corpuscular HGB Conc 32.8 g/dL (30-55); Mean Corpuscular Hemoglobin 33.5 pg (27-33); Mean Corpuscular Volume 101.9 fl (82-101); Mean Platelet Volume 10.7 fL (7.4-10.4); Monocytes # 0.9 10^3/uL (0.2-0.9); Monocytes % 9.3 %; Neutrophils # 8.33 10^3/uL (1.8-7.7); Neutrophils % 86.8 %; Nucleated Red Blood Cells % 0 %; Platelet Count 165 10^3/cmm (157-399); Red Blood Count 2.66 10^6/uL (3.85-5.65); White Blood Count 9.59 10^3/uL (3.29-11.43)
[2024-07-06] MEDS: norepinephrine 4 MG/250 ML BAG 37.5 MG IV ×2 (03:41→09:46)
[2024-07-06 03:46] LABS: INR 1.29 (0.8-1.2)
[2024-07-06 03:56] LABS: Alanine Aminotransferase 19 U/L (0-41); Albumin Level 3.4 g/dL (3.5-5.2); Alkaline Phosphatase 157 U/L (40-130); Anion Gap 18.7 (5-19); Aspartate Amino Transferase 46 U/L (0-40); Calcium 8.7 mg/dL (8.5-10.5); Carbon Dioxide 25 mmol/L (22-29); Chloride 88 mmol/L (98-107); Creatinine Clr Calc Pharmacy 23.7506; Globulin 2.7 g/dL (1.3-4.6); Glucose 74 mg/dL (65-115); Magnesium 2.2 mg/dL (1.7-2.3); Osmolality Calculated 291 mOsm/kg (285-295); Potassium 4.7 mmol/L (3.5-5.1); Sodium 127 mmol/L (136-145); Total Bilirubin 0.7 mg/dL (0.15-1.2); Total Protein 6.1 g/dL (6.6-8.7)
[2024-07-06 03:57] LABS: Calcium 8.7 mg/dL (8.5-10.5)
[2024-07-06 04:00] LABS: Parathyroid Hormone 177.1 pg/mL (15-65)
[2024-07-06 04:09] LABS: 25 Hydroxy Vitamin D 10 ng/mL (30-100)
[2024-07-06 04:12] LABS: Blood Urea Nitrogen 92 mg/dL (8-23)
[2024-07-06 04:33] LABS: Cortisol Random 22.67 ug/dL (2.47-19.5)
[2024-07-06] MEDS: morphine IR 15 mg Tablet PO (04:39)
--- NOTE | 2024-07-06 07:11 | PC.NURSE ---
[address] Delacruz -updated on increased need for levophed, altered mental status-picking at air -increased confusion. Patient remains with normal oxygen saturation levels on room air. Lungs clear. Was given morphine for c/o abd pain couple hours prior. instructed to continue to watch at this time. This nurse attempted to reach Dr. Ferrer as per her instructions if changes at night.
[2024-07-06] MEDS: DOBUTamine drip 500 MG/250 ML PREMIX 18.75 MG IV ×2 (07:22→20:45)
[2024-07-06 07:25] LABS: Glucose Point of Care 78 mg/dL (70-110)
--- NOTE | 2024-07-06 08:36 | PM.PN ---
Subjective Subjective: Patient required levophed overnight. At this time he is confused. On dialysis. Vitals/I&O/Wt Last Vital Signs Temp 97.7 F 07/06/24 06:15 Pulse 70 07/06/24 08:15 Resp 20 H 07/06/24 08:15 BP 114/66 07/06/24 06:15 Pulse Ox 95 07/06/24 08:15 O2 Del Method Room Air 07/06/24 08:15 07/05/24 07/06/24 07/06/24 22:59 06:59 14:59 Intake Total 838.875 / 838.875 411.125 / 1250.000 Output Total 50 / 50 50 / 100 Balance 788.875 / 788.875 361.125 / 1150.000 Weight last 48 hrs Weight 282 lb Weight 276 lb 1.6 oz Weight 275 lb 9.245 oz Physical Exam Narrative: GENERAL: Patient is confused NECK: No jugular vein distension. [] HEENT: No cyanosis. No icterus. No pallor. [] HEART: Regular S1 and S2. Grade 2/6 systolic murmur LUNGS: Diminished air entry bilaterally CENTRAL NERVOUS SYSTEM: Grossly nonfocal. [] EXTREMITIES: Lower extremities with 1+ edema bilaterally Urinary Catheter Management: Vazquez: Cath Placed During This Visit: yes Reason for Continuing Indwelling Catheter: Accurate Measurement of Urinary Output in Critically Ill Patients Urinary Catheter Date of Insertion: 07/05/24 Urinary Catheter Time of Insertion: 18:58 Data 07/07/24 05:25 07/07/24 05:25 A&P Assessment and plan (1) Biventricular failure: (2) Ischemic cardiomyopathy: (3) Atherosclerotic heart disease of [place] coronary artery without angina pectoris: Qualifiers: [place] vs. transplanted heart: [place] heart Qualified Code(s): I25.10 - Atherosclerotic heart disease of [place] coronary artery without angina pectoris (4) Hx of aortic valve replacement: (5) Decompensated hepatic cirrhosis: (6) Ascites: Qualifiers: Ascites type: other type Qualified Code(s): R18.8 - Other ascites (7) Microcytic anemia: (8) ICD (implantable cardioverter-defibrillator) in place: (9) Atrial fibrillation: Qualifiers: Atrial fibrillation type: permanent Qualified Code(s): I48.21 - Permanent atrial fibrillation (10) Bilateral carotid artery stenosis: Plan Patient became hypotensive last night. Was started on Levophed. Continue dobutamine. Is getting dialysis today. Overall prognosis is poor. Did discuss with patient's family, with multi organ involvement, discussion regarding goals of care and possible hospice will be appropriate. At this time we will continue with current medical therapy. Attestations Medical Necessity Statement*: Care expected to cross 2 midnights. Coding Level of Care Code Acute Code for Chg Fwd Diagnoses Biventricular failure I50.82 Ischemic cardiomyopathy I25.5 Atherosclerosis of [place] coronary artery of [place] heart without angina pectoris I25.10 [place] vs. transplanted heart: [place] heart Hx of aortic valve replacement Z95.2 Decompensated hepatic cirrhosis K72.90; K74.60 Other ascites R18.8 Ascites type: other type Microcytic anemia D50.9 ICD (implantable cardioverter-defibrillator) in place Z95.810 Permanent atrial fibrillation I48.21 Atrial fibrillation type: permanent Bilateral carotid artery stenosis I65.23
[2024-07-06] MEDS: cefTRIAXone 2,000 mg SDV 2000 MG IVP (08:49)
[2024-07-06] MEDS: water for injection-sterile 20 ML 50 ML (08:49)
--- NOTE | 2024-07-06 08:59 | PM.PN ---
Subjective Subjective: The patient was seen and examined. Patient's mental status is poor. Patient is more confused weak and lethargic. Patient has jerking-like movements of extremities. started on norepi in addition to dobutamine overnight Medications: Reviewed: Yes Medication Review Details: Current Medications Acetaminophen (Acetaminophen 500 Mg Tablet) 500 mg PO Q4H PRN PRN Reason: fever Last Admin: 07/04/24 19:28 Dose: 500 mg Albuterol/Ipratropium (Ipratropium-Albuterol 3 Ml Neb) 3 ml INHALATION Q6H PRN PRN Reason: SHORTNESS OF BREATH Albuterol/Ipratropium (Ipratropium-Albuterol 3 Ml Neb) 3 ml INHALATION Q6H PRN PRN Reason: SHORTNESS OF BREATH Allopurinol (Allopurinol 100 Mg Tablet) 100 mg PO DAILY [facility] Last Admin: 07/06/24 08:48 Dose: 100 mg Apixaban (Apixaban 5 Mg Tablet) 5 mg PO BID@0800,2000 [facility] Last Admin: 07/05/24 08:53 Dose: 5 mg Ceftriaxone Sodium (Ceftriaxone 2,000 Mg Sdv) 2,000 mg IVP Q24H [facility] Last Admin: 07/06/24 08:49 Dose: 2,000 mg Duloxetine HCl (Duloxetine 60 Mg Capsule) 60 mg PO DAILY [facility] Last Admin: 07/06/24 08:48 Dose: 60 mg Glucagon (Glucagon 1 Mg/Ml Kit 1 Ml) 1 mg IM ONCE PRN; Protocol PRN Reason: Adult Acute Hypoglycemia Nursing Prot. Dobutamine HCl/Dextrose (Dobutamine Drip) 500 mg in 250 mls @ 0 mls/hr IV .Q0M [facility]; Protocol Last Admin: 07/06/24 07:22 Dose: 5 mcg/kg/min, 18.75 mls/hr Bumetanide 25 mg/ N/A 100 mls @ 8 mls/hr IV .[id number] [facility] Last Infusion: 07/05/24 05:22 Dose: 0 mg/hr, 0 mls/hr Dextrose (D5w) 500 mls @ 0 mls/hr IV ONCE PRN; Protocol PRN Reason: Adult Acute Hypoglycemia Prot Dextrose (D10w) 125 mls @ 750 mls/hr IV PRN PRN; Protocol PRN Reason: Adult Acute Hypoglycemia Nursing Protocol Dextrose (D10w) 250 mls @ 1,000 mls/hr IV PRN PRN; Protocol PRN Reason: Adult Acute Hypoglycemia Nursing Protocol Norepinephrine Bitartrate (Levophed) 4 mg in 250 mls @ 0 mls/hr IV .Q0M [facility]; Protocol Last Admin: 07/06/24 03:41 Dose: 10 mcg/min, 37.5 mls/hr Insulin Human Lispro (Insulin Lispro 100 Unit/1 Ml) 0 unit SUBCUT TIDWM [facility]; Protocol Last Admin: 07/06/24 07:18 Dose: Not Given Levothyroxine Sodium (Levothyroxine 25 Mcg Tablet) 25 mcg PO DAILY [facility] Last Admin: 07/06/24 08:48 Dose: 25 mcg Midodrine (Midodrine 5 Mg Tablet) 10 mg PO TID [facility] Last Admin: 07/06/24 08:48 Dose: 10 mg Morphine Sulfate (Morphine Ir 15 Mg Tablet) 15 mg PO Q6H PRN PRN Reason: MODERATE PAIN Last Admin: 07/06/24 04:39 Dose: 15 mg Multivitamins (G-Iwpqade-Exbawqk C Tablet) 1 each PO DAILY [facility] Last Admin: 07/06/24 08:48 Dose: 1 each Ondansetron HCl (Ondansetron 2 Mg/Ml Sdv 2 Ml) 4 mg IVP Q6H PRN PRN Reason: NAUSEA AND VOMITING Potassium Chloride (Potassium Chloride Er 20 Meq Tablet) 40 meq PO Q12H [facility] Last Admin: 07/06/24 08:48 Dose: 40 meq Senna/Docusate Sodium (Sennosides-Docusate Tablet) 1 tab PO DAILY [facility] Last Admin: 07/06/24 08:48 Dose: 1 tab Vitals/I&O/Wt Last Vital Signs Temp 97.7 F 07/06/24 06:15 Pulse 70 07/06/24 08:15 Resp 20 H 07/06/24 08:15 BP 114/66 07/06/24 06:15 Pulse Ox 95 07/06/24 08:15 O2 Del Method Room Air 07/06/24 08:15 07/05/24 07/06/24 07/06/24 22:59 06:59 14:59 Intake Total 838.875 / 838.875 411.125 / 1250.000 Output Total 50 / 50 50 / 100 Balance 788.875 / 788.875 361.125 / 1150.000 Weight last 48 hrs Weight 127.913 kg Weight 125.237 kg Weight 125 kg Physical Exam Narrative: Obese man in bed not using oxygen saturating well. Vital signs noted. norepi and dobutamine has clonic/ jrerking movements of arms HEENT normocephalic atraumatic neck is supple lungs have dull bases. Heart irregular with systolic murmurs. Abdomen distended positive bowel sounds positive ascites. Extremities have bilateral edema 2+. Neuro -letghargic, responds to pain. minimally verbal, + asterixis Dialysis access right IJ permacath. 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 Cardiac cirrhosis increased pulmonary hypertension, acute on chronic renal failure, hypothyroidism, gout, diabetes, A-fib. 1. Heart failure acute on chronic systolic and diastolic patient has a EF of 25 to 30% not able to tolerate Entresto. The patient has an ICD patient is currently in A-fib. 2. Acute on chronic renal failure likely from hypotension, cardiac disease and secondary liver disease. - likely he has hemodynamically mediated diseases with cardio hepatorenal syndrome. Patient attempted dialysis in the past and had difficulty. - as AMS likely from liver failure, renal failure, and hyponatremia- discussed w/ Dr Pedrito Ferrer, we Will attempt dialysis -renal ultrasound -reveals ascites, no hydronephrosis 3. Anemia hemoglobin is stable. Platelets improved to 165 4. Hyponatremia likely from renal failure liver failure and heart failure. Monitor with diuresis anddialysis 5. Diabetic control Medications reviewed. The patient was seen and examined using audiovisual equipment with the aid of a nurse. Who examined the patient. The patient and his consent to hemodialysis and to telehealth. I had a long discussion with the patient's explaining that the patient unfortunately is in multiorgan failure and his prognosis is poor. Will attempt dialysis and see how he does. Unfortunately he may have terminal disease. Plan See above Attestations Medical Necessity Statement*: On 2 pressors, end-stage renal disease, severe heart failure, altered mental status. Time Spent in Patient Care: 16 - 35 minutes (>than 50% of time spent in counselling and/or direct pt care on unit). Coding Level of Care Code Acute Code for Chg Fwd Diagnoses Acute kidney injury superimposed on CKD N17.9; N18.9
--- NOTE | 2024-07-06 09:04 | PC.HD ---
Electronic consent for dialysis signed by spouse. Heparin-free treatment per horseradish maker. Patient extremely agitated, flailing about the bed. Soft wrist restraints applied bilaterally for patient safety during dialysis.
[2024-07-06] MEDS: ergocalciferol (vitamin D2) 50,000 Unit Capsule 50000 UNIT PO (09:33)
[2024-07-06 11:15] LABS: Glucose Point of Care 76 mg/dL (70-110)
[2024-07-06] MEDS: morphine 4 mg/mL SDV 1 mL 2 MG IVP ×2 (13:24→20:34)
--- NOTE | 2024-07-06 13:31 | PC.NURSE ---
doctor called pain medication given for iv as pt now not taking any po ,weaning down levophed at bedside
--- NOTE | 2024-07-06 15:03 | P.PN_ITS ---
Subjective 2 Subjective: Seen this morning Patient required Levophed overnight and is currently on 14 mics. Currently on dobutamine 5/h. He is confused this morning and encephalopathic. No family present at bedside. Blood pressure soft. Seen during his dialysis session. BUN 92, creatinine 3.9. INR 1.29. Vitals/I&O/Wt Last Vital Signs Temp 96.3 F L 07/06/24 09:03 Pulse 64 07/06/24 14:23 Resp 12 07/06/24 14:15 BP 115/56 07/06/24 14:15 Pulse Ox 96 07/06/24 14:15 O2 Del Method Nasal Cannula 07/06/24 10:00 O2 Flow Rate 2 07/06/24 10:00 07/06/24 07/06/24 07/06/24 06:59 14:59 22:59 Intake Total 411.125 / 1250.000 478.688 / 478.688 Output Total 50 / 100 20 / 20 Balance 361.125 / 1150.000 458.688 / 458.688 Weight last 48 hrs Weight 127.913 kg Weight 125.237 kg Weight 125 kg Physical Exam 2 Narrative: Obese man in bed not using oxygen saturating well. Vital signs noted. norepi and dobutamine drips are running at this time. has clonic/ jrerking movements of arms HEENT normocephalic atraumatic lungs have diminished bilateral air entry at bases Heart irregular with systolic murmurs. Abdomen distended positive bowel sounds positive ascites. Extremities have bilateral edema 3+ Neuro -letghargic, responds to pain. minimally verbal, + asterixis Dialysis access right IJ permacath. Urinary Catheter Management: Vazquez: Cath Placed During This Visit: yes Reason for Continuing Indwelling Catheter: Accurate Measurement of Urinary Output in Critically Ill Patients Urinary Catheter Date of Insertion: 07/05/24 Urinary Catheter Time of Insertion: 18:58 Data 07/06/24 02:47 07/06/24 02:47 A&P Assessment and plan (1) Biventricular failure: (2) CAD (coronary artery disease): Qualifiers: Coronary Disease-Associated Artery/Lesion type: [place] artery [place] vs. transplanted heart: enterprise heart Associated angina: without angina Qualified Code(s): I25.10 - Atherosclerotic heart disease of [place] coronary artery without angina pectoris (3) Chronic systolic (congestive) heart failure: (4) H/O aortic root repair: (5) Shock: (6) Chronic anticoagulation: (7) Anticoagulation adequate with anticoagulant therapy: (8) Diabetes: (9) Liver cirrhosis: (10) Decompensated hepatic cirrhosis: Plan Cardiogenic shock History of cardiomyopathy status post AICD Biventricular failure Currently on dobutamine drip along Bumex Add midodrine Once pressure is better we will add metolazone is under the impression that he will need IV dobutamine at the time of discharge They want to see Dr. Londono For hypotension may require albumin as well No active signs of hepatorenal syndrome Patient was getting Bumex 3 mg/h at [facility] along dobutamine 5 mics per kilo per minute [place] Patient has anasarca related to biventricular failure Recent removal of peritoneal drain secondary to leakage around the peritoneal drain site Not a TIPS candidate because of MELD score 22 Patient is stating that he would like to go home with outpatient PT referral He is full code Will keep cardiac consistent carb diet for now Sliding scale of insulin will be used History of A-fib with use of Eliquis Patient developed hemoperitoneum Eliquis was discontinued and patient required 4 units PRBC At [facility] they have reintroduced Eliquis Patient seems to have guarded prognosis, both patient and seem to have poor insight and stating that we should discharge patient on IV dobutamine, I did tell them that we are not able to facilitate the patient with dobutamine pump at this facility, will consult general cardiology in the morning 07/06 Continue to hold Eliquis at this time. Plan for paracentesis on Monday. Nephrology consulted. Dialysis session today. Patient requiring dobutamine and Levophed due to low blood pressures. Will continue and attempt to wean off as able. Continue midodrine, ceftriaxone Patient not arranged for TIPS or LVAD. Patient carries a poor prognosis. Cardiology on board. Patient is in multiorgan failure and unable to be weaned off pressors. Carries a poor prognosis. Low urine output, worsening BUN and creatinine. Attestations 2 Medical Necessity Statement*: On 2 pressors, end-stage renal disease, severe heart failure, altered mental status. Time Spent in Patient Care: 16 - 35 minutes (>than 50% of time sp ent in counselling and/or direct pt care on unit) . Diagnoses Biventricular failure I50.82 Coronary artery disease involving enterprise coronary artery of [place] heart without angina pectoris I25.10 Coronary Disease-Associated Artery/Lesion type: [place] artery [place] vs. transplanted heart: [place] heart Associated angina: without angina Chronic systolic (congestive) heart failure I50.22 H/O aortic root repair Z98.890 Shock R57.9 Chronic anticoagulation Z79.01 Anticoagulation adequate with anticoagulant therapy Z79.01 Diabetes E11.9 Liver cirrhosis K74.60 Decompensated hepatic cirrhosis K72.90; K74.60
[2024-07-06] MEDS: norepinephrine 4 MG/250 ML BAG 30 MG IV (15:08)
--- NOTE | 2024-07-06 15:59 | PC.NURSE ---
increasing agitation noted appears to be reaching for fozia and attempt to get out of bed at bedside yelling loudly not able to redirect pt
[2024-07-06] MEDS: haloperidol inj 5 mg/mL INJ 1 mL 2 MG IM (16:16)
[2024-07-06 17:35] LABS: Glucose Point of Care 75 mg/dL (70-110)
[2024-07-07] VITALS (119 sets, daily range): BP systolic 74–149; BP diastolic 36–110; PULSE 61–98; RESP 10–35; TEMP 36.4–37.3; O2SAT 72–100
[2024-07-07] MEDS: norepinephrine 4 MG/250 ML BAG 15 MG IV ×2 (01:32→14:05)
[2024-07-07 05:37] LABS: Basophils % 0.2 %; Eosinophils # 0.2 10^3/uL (0.0-0.8); Eosinophils % 1.2 %; Hematocrit 27.9 % (37-53); Lymphocytes # 0.1 10^3/uL (0.8-4.8); Mean Corpuscular Hemoglobin 34.2 pg (27-33); Mean Corpuscular Volume 103.7 fl (82-101); Mean Platelet Volume 10.5 fL (7.4-10.4); Monocytes % 8.2 %; Neutrophils % 88.8 %; Nucleated Red Blood Cells % 0 %; Platelet Count 147 10^3/cmm (157-399); Red Blood Count 2.69 10^6/uL (3.85-5.65); Red Cell Distribution Width 23.8 % (12.1-15.1); White Blood Count 12.73 10^3/uL (3.29-11.43)
[2024-07-07 05:58] LABS: Alanine Aminotransferase 22 U/L (0-41); Albumin Level 3.4 g/dL (3.5-5.2); Alkaline Phosphatase 176 U/L (40-130); Anion Gap 18.6 (5-19); Aspartate Amino Transferase 48 U/L (0-40); Blood Urea Nitrogen 60 mg/dL (8-23); Calcium 8.6 mg/dL (8.5-10.5); Carbon Dioxide 25 mmol/L (22-29); Chloride 92 mmol/L (98-107); Creatinine Clr Calc Pharmacy 29.7866; Globulin 2.6 g/dL (1.3-4.6); Glucose 45 mg/dL (65-115); Magnesium 2.1 mg/dL (1.7-2.3); Osmolality Calculated 286 mOsm/kg (285-295); Potassium 4.6 mmol/L (3.5-5.1); Sodium 131 mmol/L (136-145); Total Bilirubin 0.7 mg/dL (0.15-1.2)
[2024-07-07] MEDS: dextrose 10% 250 ML 1000 ML IV (06:19)
[2024-07-07 07:14] LABS: Glucose Point of Care 44 mg/dL (70-110)
[2024-07-07 07:14] LABS: Glucose Point of Care 85 mg/dL (70-110)
--- NOTE | 2024-07-07 08:07 | P.PN_ITS ---
Subjective 2 Subjective: Patient requiring levophed. Confused, not following commands. Vitals/I&O/Wt Last Vital Signs Temp 97.6 F 07/07/24 08:01 Pulse 70 07/07/24 08:00 Resp 18 07/07/24 08:00 BP 91/47 07/07/24 08:00 Pulse Ox 100 07/07/24 08:00 O2 Del Method Room Air 07/07/24 03:15 O2 Flow Rate 2 07/06/24 10:00 07/06/24 07/07/24 07/07/24 22:59 06:59 14:59 Intake Total 849.437 / 1328.125 448.875 / 1777.000 Output Total 1615 / 1635 100 / 1735 Balance -765.563 / -306.875 348.875 / 42.000 Weight last 48 hrs Weight 274 lb 7 oz Weight 278 lb 14.156 oz Weight 282 lb Physical Exam 2 Narrative: GENERAL: Patient is confused NECK: No jugular vein distension. [] HEENT: No cyanosis. No icterus. No pallor. [] HEART: Regular S1 and S2. Grade 2/6 systolic murmur LUNGS: Diminished air entry bilaterally CENTRAL NERVOUS SYSTEM: Grossly nonfocal. [] EXTREMITIES: Lower extremities with 1+ edema bilaterally Urinary Catheter Management: Vazquez: Cath Placed During This Visit: yes Reason for Continuing Indwelling Catheter: Accurate Measurement of Urinary Output in Critically Ill Patients Urinary Catheter Date of Insertion: 07/05/24 Urinary Catheter Time of Insertion: 18:58 Data 07/07/24 05:25 07/07/24 05:25 A&P Assessment and plan (1) Biventricular failure: (2) Ischemic cardiomyopathy: (3) Atherosclerotic heart disease of [place] coronary artery without angina pectoris: Qualifiers: [place] vs. transplanted heart: [place] heart Qualified Code(s): I25.10 - Atherosclerotic heart disease of [place] coronary artery without angina pectoris (4) Hx of aortic valve replacement: (5) Decompensated hepatic cirrhosis: (6) Ascites: Qualifiers: Ascites type: other type Qualified Code(s): R18.8 - Other ascites (7) Microcytic anemia: (8) ICD (implantable cardioverter-defibrillator) in place: (9) Atrial fibrillation: Qualifiers: Atrial fibrillation type: permanent Qualified Code(s): I48.21 - Permanent atrial fibrillation (10) Bilateral carotid artery stenosis: Plan Patient requiring Levophed. On dobutamine. Had dialysis performed yesterday. Low urine output. Overall prognosis is poor. Did discuss with patient's family, with multi organ involvement, discussion regarding goals of care and possible hospice will be appropriate. At this time we will continue with current medical therapy. Attestations 2 Medical Necessity Statement*: Care expected to cross 2 midnights. Coding Level of Care Code Acute Code for Chg Fwd Diagnoses Biventricular failure I50.82 Ischemic cardiomyopathy I25.5 Atherosclerosis of [place] coronary artery of [place] heart without angina pectoris I25.10 [place] vs. transplanted heart: [place] heart Hx of aortic valve replacement Z95.2 Decompensated hepatic cirrhosis K72.90; K74.60 Other ascites R18.8 Ascites type: other type Microcytic anemia D50.9 ICD (implantable cardioverter-defibrillator) in place Z95.810 Permanent atrial fibrillation I48.21 Atrial fibrillation type: permanent Bilateral carotid artery stenosis I65.23
[2024-07-07] MEDS: cefTRIAXone 2,000 mg SDV 2000 MG IVP (08:35)
--- NOTE | 2024-07-07 09:29 | PM.PN ---
Subjective Subjective: The patient was seen and examined. The patient is more awake. The patient is currently on Levophed at 6 down from as high as 14. Patient remains on 2 dobutamine. The patient is still confused. He is not able to answer questions appropriately. Medications: Reviewed: Yes Medication Review Details: Current Medications Acetaminophen (Acetaminophen 500 Mg Tablet) 500 mg PO Q4H PRN PRN Reason: fever Last Admin: 07/04/24 19:28 Dose: 500 mg Albuterol/Ipratropium (Ipratropium-Albuterol 3 Ml Neb) 3 ml INHALATION Q6H PRN PRN Reason: SHORTNESS OF BREATH Allopurinol (Allopurinol 100 Mg Tablet) 100 mg PO DAILY [facility] Last Admin: 07/06/24 10:34 Dose: Not Given Apixaban (Apixaban 5 Mg Tablet) 5 mg PO BID@0800,2000 [facility] Last Admin: 07/05/24 08:53 Dose: 5 mg Ceftriaxone Sodium (Ceftriaxone 2,000 Mg Sdv) 2,000 mg IVP Q24H [facility] Last Admin: 07/07/24 08:35 Dose: 2,000 mg Duloxetine HCl (Duloxetine 60 Mg Capsule) 60 mg PO DAILY [facility] Last Admin: 07/06/24 10:34 Dose: Not Given Ergocalciferol (Ergocalciferol (Vitamin D2) 50,000 Unit Capsule) 50,000 unit PO Q7D [facility] Last Admin: 07/06/24 09:33 Dose: 50,000 unit Glucagon (Glucagon 1 Mg/Ml Kit 1 Ml) 1 mg IM ONCE PRN; Protocol PRN Reason: Adult Acute Hypoglycemia Nursing Prot. Dobutamine HCl/Dextrose (Dobutamine Drip) 500 mg in 250 mls @ 0 mls/hr IV .Q0M [facility]; Protocol Last Admin: 07/06/24 20:45 Dose: 5 mcg/kg/min, 18.75 mls/hr Bumetanide 25 mg/ N/A 100 mls @ 8 mls/hr IV .[id number] [facility] Last Infusion: 07/05/24 05:22 Dose: 0 mg/hr, 0 mls/hr Dextrose (D5w) 500 mls @ 0 mls/hr IV ONCE PRN; Protocol PRN Reason: Adult Acute Hypoglycemia Prot Dextrose (D10w) 125 mls @ 750 mls/hr IV PRN PRN; Protocol PRN Reason: Adult Acute Hypoglycemia Nursing Protocol Dextrose (D10w) 250 mls @ 1,000 mls/hr IV PRN PRN; Protocol PRN Reason: Adult Acute Hypoglycemia Nursing Protocol Last Infusion: 07/07/24 06:40 Dose: Infused Norepinephrine Bitartrate (Levophed) 4 mg in 250 mls @ 0 mls/hr IV .Q0M [facility]; Protocol Last Titration: 07/07/24 03:35 Dose: 4 mcg/min, 15 mls/hr Insulin Human Lispro (Insulin Lispro 100 Unit/1 Ml) 0 unit SUBCUT TIDWM [facility]; Protocol Last Admin: 07/07/24 07:07 Dose: Not Given Levothyroxine Sodium (Levothyroxine 25 Mcg Tablet) 25 mcg PO DAILY [facility] Last Admin: 07/06/24 10:35 Dose: Not Given Midodrine (Midodrine 5 Mg Tablet) 10 mg PO TID [facility] Last Admin: 07/06/24 20:29 Dose: Not Given Morphine Sulfate (Morphine Ir 15 Mg Tablet) 15 mg PO Q6H PRN PRN Reason: MODERATE PAIN Last Admin: 07/06/24 04:39 Dose: 15 mg Morphine Sulfate (Morphine 4 Mg/Ml Sdv 1 Ml) 2 mg IVP Q4H PRN PRN Reason: SEVERE PAIN Last Admin: 07/06/24 20:34 Dose: 2 mg Multivitamins (J-Vlurylp-Gpkshjw C Tablet) 1 each PO DAILY [facility] Last Admin: 07/06/24 10:34 Dose: Not Given Ondansetron HCl (Ondansetron 2 Mg/Ml Sdv 2 Ml) 4 mg IVP Q6H PRN PRN Reason: NAUSEA AND VOMITING Potassium Chloride (Potassium Chloride Er 20 Meq Tablet) 40 meq PO Q12H [facility] Last Admin: 07/07/24 05:22 Dose: Not Given Senna/Docusate Sodium (Sennosides-Docusate Tablet) 1 tab PO DAILY [facility] Last Admin: 07/06/24 10:35 Dose: Not Given Vitals/I&O/Wt Last Vital Signs Temp 97.6 F 07/07/24 08:01 Pulse 69 07/07/24 09:08 Resp 20 H 07/07/24 09:08 BP 101/46 07/07/24 09:00 Pulse Ox 97 07/07/24 09:08 O2 Del Method Nasal Cannula 07/07/24 09:08 O2 Flow Rate 2 07/07/24 09:08 07/06/24 07/07/24 07/07/24 22:59 06:59 14:59 Intake Total 849.437 / 1328.125 448.875 / 1777.000 Output Total 1615 / 1635 100 / 1735 100 / 100 Balance -765.563 / -306.875 348.875 / 42.000 -100 / -100 Weight last 48 hrs Weight 124.483 kg Weight 126.5 kg Weight 127.913 kg Physical Exam Narrative: Obese man in bed not using oxygen saturating well. Vital signs noted on levophed and dobutamine more awake, confused, talking, responsive HEENT normocephalic atraumatic neck is supple lungs have improved air mvoement Heart irregular with systolic murmurs. Abdomen distended positive bowel sounds positive ascites. Extremities have bilateral edema 2+. Neuro -more awake and verbal, still confused Dialysis access right IJ permacath. 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 Cardiac cirrhosis increased pulmonary hypertension, acute on chronic renal failure, hypothyroidism, gout, diabetes, A-fib. 1. Heart failure acute on chronic systolic and diastolic patient has a EF of 25 to 30% not able to tolerate Entresto. The patient has an ICD patient is currently in A-fib. 2. Acute on chronic renal failure likely from hypotension, cardiac disease and secondary liver disease. - likely he has hemodynamically mediated diseases with cardio hepatorenal syndrome. Patient attempted dialysis in the past and had difficulty. -renal ultrasound -reveals ascites, no hydronephrosis -Status post hemodialysis yesterday with 1.1 L fluid removed. Will plan for hemodialysis tomorrow and monitor if she can tolerate it. 3. Anemia hemoglobin is stable. Platelets relatively stable at 147. 4. Leukocytosis. Monitor for infection. 5. Hyponatremia likely from renal failure liver failure and heart failure. Slightly improved with dialysis 6. Diabetic control-patient has hypoglycemia. Can decrease insulin dose. Medications reviewed. The patient was seen and examined using audiovisual equipment with the aid of a nurse. Who examined the patient. The patient and his consent to hemodialysis and to telehealth. Unfortunately very poor prognosis. Plan See above Attestations Medical Necessity Statement*: pressor dependent, AMS, liver, renal and heart failure Time Spent in Patient Care: 16 - 35 minutes (>than 50% of time spent in counselling and/or direct pt care on unit). Coding Level of Care Code Acute Code for Chg Fwd Diagnoses Acute kidney injury superimposed on CKD N17.9; N18.9
[2024-07-07] MEDS: water for injection-sterile 10 ML 1000 ML (09:42)
[2024-07-07] MEDS: levothyroxine 25 mcg Tablet PO (09:43)
[2024-07-07] MEDS: midodrine 5 mg TABLET 10 MG PO ×3 (09:43→21:18)
[2024-07-07] MEDS: duloxetine 60 mg Capsule PO (09:43)
[2024-07-07] MEDS: b-complex-vitamin c Tablet 1 EACH PO (09:43)
[2024-07-07] MEDS: sennosides-docusate Tablet 1 TAB PO (09:43)
[2024-07-07] MEDS: allopurinol 100 mg Tablet PO (09:43)
--- NOTE | 2024-07-07 10:05 | PC.NURSE ---
doctor here talked with pt at lent about poor prognosis , pt aware of year ,president and place , asisted with small amt of po meds and liquids bloodsugar low applesauce with sugar
[2024-07-07 10:12] LABS: Glucose Point of Care 49 mg/dL (70-110)
[2024-07-07 10:40] LABS: Glucose Point of Care 55 mg/dL (70-110)
[2024-07-07] MEDS: DOBUTamine drip 500 MG/250 ML PREMIX 11.25 MG IV (11:39)
[2024-07-07 12:36] LABS: Glucose Point of Care 76 mg/dL (70-110)
--- NOTE | 2024-07-07 13:40 | PM.PN ---
Subjective Subjective: Seen this morning. Patient's mental status is slightly better. He knows where he is he knows in the hospital he knows the year and he knows who the president however does have very poor insight into his current condition. He says he will definitely not consider hospice. He states he would like to stay on the drips however when I told him that we cannot do this forever because these are temporary measures he states well we will figure something out tomorrow. is not present at bedside at this time. Patient is in denial at this time. However does state that he is not in any pain at this time and is feeling okay Yesterday required Haldol for agitation. Underwent dialysis yesterday 1.1 L removed. Urine output minimal in last 24 hours. Only 100 cc. BUN 60, creatinine 3.1 today. Has been having hypoglycemic episodes and is required amps of D50. Glucose again 45 this morning. He has been given applesauce. Currently on 5 of Levophed and 5 of dobutamine. Yesterday during dialysis was requiring 14 of Levophed. Vitals/I&O/Wt Last Vital Signs Temp 97.6 F 07/07/24 08:01 Pulse 71 07/07/24 13:00 Resp 20 H 07/07/24 13:00 BP 116/69 07/07/24 13:00 Pulse Ox 98 07/07/24 12:15 O2 Del Method Nasal Cannula 07/07/24 09:08 O2 Flow Rate 2 07/07/24 09:08 07/06/24 07/07/24 07/07/24 22:59 06:59 14:59 Intake Total 849.437 / 1328.125 448.875 / 1777.000 460 / 460 Output Total 1615 / 1635 100 / 1735 100 / 100 Balance -765.563 / -306.875 348.875 / 42.000 360 / 360 Weight last 48 hrs Weight 124.483 kg Weight 126.5 kg Weight 127.913 kg Physical Exam Narrative: On 2 L oxygen nasal cannula vital signs noted. norepi and dobutamine drips are running at this time. has clonic/ jrerking movements of arms HEENT normocephalic atraumatic lungs have diminished bilateral air entry at bases Heart irregular with systolic murmurs. Abdomen distended positive bowel sounds positive ascites. Extremities have bilateral edema 3+ Neuro -AAOx3 today. Dialysis access right IJ permacath. Urinary Catheter Management: Vazquez: Cath Placed During This Visit: yes Reason for Continuing Indwelling Catheter: Accurate Measurement of Urinary Output in Critically Ill Patients Urinary Catheter Date of Insertion: 07/05/24 Urinary Catheter Time of Insertion: 18:58 Data 07/07/24 05:25 07/07/24 05:25 A&P Assessment and plan (1) Biventricular failure: (2) CAD (coronary artery disease): Qualifiers: Coronary Disease-Associated Artery/Lesion type: [place] artery [place] vs. transplanted heart: [place] heart Associated angina: without angina Qualified Code(s): I25.10 - Atherosclerotic heart disease of [place] coronary artery without angina pectoris (3) Chronic systolic (congestive) heart failure: (4) H/O aortic root repair: (5) Shock: (6) Chronic anticoagulation: (7) Anticoagulation adequate with anticoagulant therapy: (8) Diabetes: (9) Liver cirrhosis: (10) Decompensated hepatic cirrhosis: Plan Cardiogenic shock History of cardiomyopathy status post AICD Biventricular failure Currently on dobutamine drip along Bumex Add midodrine Once pressure is better we will add metolazone is under the impression that he will need IV dobutamine at the time of discharge They want to see Dr. Londono For hypotension may require albumin as well No active signs of hepatorenal syndrome Patient was getting Bumex 3 mg/h at [facility] along dobutamine 5 mics per kilo per minute [place] Patient has anasarca related to biventricular failure Recent removal of peritoneal drain secondary to leakage around the peritoneal drain site Not a TIPS candidate because of MELD score 22 Patient is stating that he would like to go home with outpatient PT referral He is full code Will keep cardiac consistent carb diet for now Sliding scale of insulin will be used History of A-fib with use of Eliquis Patient developed hemoperitoneum Eliquis was discontinued and patient required 4 units PRBC At [facility] they have reintroduced Eliquis Patient seems to have guarded prognosis, both patient and seem to have poor insight and stating that we should discharge patient on IV dobutamine, I did tell them that we are not able to facilitate the patient with dobutamine pump at this facility, will consult general cardiology in the morning 07/07 Continue to hold Eliquis at this time. Plan for paracentesis on Monday if patient will be stable enough to undergo it. Nephrology consulted. Dialysis session today. Continue on dobutamine and Levophed. Will try to wean off dobutamine if possible. Discussed with nursing staff. We will do this to give patient a bit of a washout period. Continue midodrine, ceftriaxone Patient not arranged for TIPS or LVAD. Patient carries a poor prognosis. Cardiology on board. Patient is in multiorgan failure and unable to be weaned off pressors. Carries a poor prognosis. Low urine output, worsening BUN and creatinine. Patient has very poor insight into his current condition. Would like to remain a full code. Stop patient's insulin sliding scale. Placed on D5 water 30 cc/h. #Cardiogenic shock #VEE on CKD #Renal failure secondary to heart failure #Anemia?stable #Leukocytosis most likely stress-induced #Pseudohyponatremia from liver and heart failure #Diabetes mellitus complicated by hypoglycemic episodes. Attestations Medical Necessity Statement*: Continue to manage cardiogenic shock, patient carries a poor prognosis. Critical Care Time: The high probability of a clinically significant, sudden or life threatening deterioration of the patient's [cardiovascular, neurological, respiratory, renal] system(s) required my full and direct attention, intervention and personal management. The critical care time is as shown. This time is in addition to time spent performing any reported procedures but includes the following: [x] Data and vital sign review and interpretation [x] Patient assessment, examination and intervention [x] Documentation [x] Medication orders and management Critical Care Time (min): 45 Coding Level of Care Code Acute Code for [facility] Fwd Diagnoses Biventricular failure I50.82 Coronary artery disease involving [place] coronary artery of [place] heart without angina pectoris I25.10 Coronary Disease-Associated Artery/Lesion type: [place] artery [place] vs. transplanted heart: [place] heart Associated angina: without angina Chronic systolic (congestive) heart failure I50.22 H/O aortic root repair Z98.890 Shock R57.9 Chronic anticoagulation Z79.01 Anticoagulation adequate with anticoagulant therapy Z79.01 Diabetes E11.9 Liver cirrhosis K74.60 Decompensated hepatic cirrhosis K72.90; K74.60
[2024-07-07] MEDS: dextrose 5% 1,000 ML 30 ML IV (14:17)
[2024-07-07 17:29] LABS: Glucose Point of Care 83 mg/dL (70-110)
[2024-07-07 22:17] LABS: Glucose Point of Care 65 mg/dL (70-110)
[2024-07-07] MEDS: dextrose 10% 125 ML 40 ML IV (22:30)
[2024-07-07] MEDS: dextrose 10% 1,000 ML 40 ML IV (23:19)
--- NOTE | 2024-07-07 23:27 | PC.NURSE ---
Blood sugar at bedtime check trending down 65 despite d5 at 30. Dr. Rowe updated instructed to change to d10 at 40ml/ hr and recheck to see if blood sugar improves. Repeat blood sugar down to 58 despite changes new order obtained for d10 rate to be increased to 75 ml/ hr. No crackles or respiratory compromise at present. Will continue to monitor. Bonnie updated re blood sugar issues x 2 and also need to increase levophed due to low blood pressures.
[2024-07-08] VITALS (94 sets, daily range): BP systolic 89–149; BP diastolic 47–105; PULSE 65–73; RESP 8–23; TEMP 36.5–37.2; O2SAT 90–99
[2024-07-08 00:18] LABS: Glucose Point of Care 58 mg/dL (70-110)
[2024-07-08 00:18] LABS: Glucose Point of Care 108 mg/dL (70-110)
[2024-07-08] MEDS: norepinephrine 4 MG/250 ML BAG 37.5 MG IV (02:03)
[2024-07-08 03:49] LABS: Basophils % 0.3 %; Eosinophils # 0.2 10^3/uL (0.0-0.8); Eosinophils % 1.8 %; Hematocrit 28.6 % (37-53); Lymphocytes # 0.2 10^3/uL (0.8-4.8); Lymphocytes % 1.5 %; Mean Corpuscular HGB Conc 32.2 g/dL (30-55); Mean Corpuscular Hemoglobin 33.7 pg (27-33); Mean Corpuscular Volume 104.8 fl (82-101); Mean Platelet Volume 10.8 fL (7.4-10.4); Monocytes % 8.7 %; Neutrophils # 9.88 10^3/uL (1.8-7.7); Nucleated Red Blood Cells % 0 %; Platelet Count 167 10^3/cmm (157-399); Red Blood Count 2.73 10^6/uL (3.85-5.65); Red Cell Distribution Width 23.7 % (12.1-15.1); White Blood Count 11.36 10^3/uL (3.29-11.43)
[2024-07-08 04:19] LABS: Alanine Aminotransferase 26 U/L (0-41); Albumin Level 3.4 g/dL (3.5-5.2); Alkaline Phosphatase 183 U/L (40-130); Anion Gap 17.9 (5-19); Aspartate Amino Transferase 56 U/L (0-40); Blood Urea Nitrogen 68 mg/dL (8-23); Calcium 8.9 mg/dL (8.5-10.5); Carbon Dioxide 26 mmol/L (22-29); Chloride 89 mmol/L (98-107); Creatinine Clr Calc Pharmacy 25.6496; Globulin 2.8 g/dL (1.3-4.6); Glucose 72 mg/dL (65-115); Magnesium 2.2 mg/dL (1.7-2.3); Osmolality Calculated 284 mOsm/kg (285-295); Potassium 4.9 mmol/L (3.5-5.1); Sodium 128 mmol/L (136-145); Total Bilirubin 0.8 mg/dL (0.15-1.2); Total Protein 6.2 g/dL (6.6-8.7)
--- NOTE | 2024-07-08 08:02 | P.PN_ITS ---
Subjective 2 Subjective: on 1.5 L fio2 on 2 mcg LEVOPHED Low UOP Medications: Reviewed: Yes Vitals/I&O/Wt Last Vital Signs Temp 97.8 F 07/08/24 02:00 Pulse 70 07/08/24 07:45 Resp 10 L 07/08/24 07:45 BP 130/79 07/08/24 07:45 Pulse Ox 95 07/08/24 07:45 O2 Del Method Nasal Cannula 07/08/24 05:15 O2 Flow Rate 1 07/08/24 05:15 07/07/24 07/08/24 07/08/24 22:59 06:59 14:59 Intake Total 153.625 / 771.125 567.834 / 1338.959 Output Total 125 / 225 100 / 325 Balance 28.625 / 546.125 467.834 / 1013.959 Weight last 48 hrs Weight 124.999 kg Weight 124.483 kg Weight 126.5 kg Physical Exam 2 Narrative: Vital signs noted on levophed more awake, confused, talking, responsive HEENT normocephalic atraumatic neck is supple lungs have improved air mvoement Heart irregular with systolic murmurs. Abdomen distended positive bowel sounds positive ascites. Extremities have bilateral edema 2+. Neuro -more awake and verbal, still confused Dialysis access right IJ permacath. Urinary Catheter Management: Vazquez: Cath Placed During This Visit: yes Reason for Continuing Indwelling Catheter: Accurate Measurement of Urinary Output in Critically Ill Patients Urinary Catheter Date of Insertion: 07/05/24 Urinary Catheter Time of Insertion: 18:58 Data 07/08/24 03:33 07/08/24 03:33 A&P Assessment and plan (1) Acute kidney injury superimposed on CKD: 73-year-old gentleman heart failure combined systolic and diastolic with valvular heart disease. Cardiac cirrhosis increased pulmonary hypertension, acute on chronic renal failure, hypothyroidism, gout, diabetes, A-fib. 1. Heart failure acute on chronic systolic and diastolic patient has a EF of 25 to 30% not able to tolerate Entresto. The patient has an ICD patient is currently in A-fib. 2. Acute on chronic renal failure likely from hypotension, cardiac disease and secondary liver disease. - likely he has hemodynamically mediated diseases with cardio hepatorenal syndrome. Patient attempted dialysis in the past and had difficulty. -renal ultrasound -reveals ascites, no hydronephrosis -Status post hemodialysis yesterday with 1.1 L fluid removed. Will plan for hemodialysis today and monitor 3. Anemia hemoglobin is stable. Platelets relatively stable 4. Leukocytosis. Monitor for infection. 5. Hyponatremia likely from renal failure liver failure and heart failure. Slightly improved with dialysis 6. Diabetic control-patient has hypoglycemia. Can decrease insulin dose. Medications reviewed. The patient was seen and examined using audiovisual equipment with the aid of a nurse. Who examined the patient. The patient and his consent to hemodialysis and to telehealth. Unfortunately very poor prognosis. Plan See above Attestations 2 Medical Necessity Statement*: per medicine Coding Level of Care Code Acute Code for Chg Fwd Diagnoses Acute kidney injury superimposed on CKD N17.9; N18.9
--- NOTE | 2024-07-08 08:36 | P.PN_ITS ---
Subjective 2 Subjective: Events of the weekend are noted. Patient had dialysis with IV Levophed. Scheduled for dialysis today. No significant response to IV dobutamine fusion. Telemetry shows paced rhythm. No chest pain or chest tightness. Abdomen is still distended but not any worse. Medications: Medication Review Details: Current Medications Acetaminophen (Acetaminophen 500 Mg Tablet) 500 mg PO Q4H PRN PRN Reason: fever Last Admin: 07/04/24 19:28 Dose: 500 mg Albuterol/Ipratropium (Ipratropium-Albuterol 3 Ml Neb) 3 ml INHALATION Q6H PRN PRN Reason: SHORTNESS OF BREATH Allopurinol (Allopurinol 100 Mg Tablet) 100 mg PO DAILY [facility] Last Admin: 07/07/24 09:43 Dose: 100 mg Apixaban (Apixaban 5 Mg Tablet) 5 mg PO BID@0800,2000 [facility] Last Admin: 07/05/24 08:53 Dose: 5 mg Ceftriaxone Sodium (Ceftriaxone 2,000 Mg Sdv) 2,000 mg IVP Q24H [facility] Last Admin: 07/07/24 08:35 Dose: 2,000 mg Duloxetine HCl (Duloxetine 60 Mg Capsule) 60 mg PO DAILY [facility] Last Admin: 07/07/24 09:43 Dose: 60 mg Ergocalciferol (Ergocalciferol (Vitamin D2) 50,000 Unit Capsule) 50,000 unit PO Q7D [facility] Last Admin: 07/06/24 09:33 Dose: 50,000 unit Glucagon (Glucagon 1 Mg/Ml Kit 1 Ml) 1 mg IM ONCE PRN; Protocol PRN Reason: Adult Acute Hypoglycemia Nursing Prot. Dobutamine HCl/Dextrose (Dobutamine Drip) 500 mg in 250 mls @ 0 mls/hr IV .Q0M [facility]; Protocol Last Admin: 07/07/24 11:39 Dose: 3 mcg/kg/min, 11.25 mls/hr Bumetanide 25 mg/ N/A 100 mls @ 8 mls/hr IV .[id number] [facility] Last Infusion: 07/05/24 05:22 Dose: 0 mg/hr, 0 mls/hr Dextrose (D5w) 500 mls @ 0 mls/hr IV ONCE PRN; Protocol PRN Reason: Adult Acute Hypoglycemia Prot Dextrose (D10w) 125 mls @ 750 mls/hr IV PRN PRN; Protocol PRN Reason: Adult Acute Hypoglycemia Nursing Protocol Last Infusion: 07/07/24 23:19 Dose: 0 mls/hr Dextrose (D10w) 250 mls @ 1,000 mls/hr IV PRN PRN; Protocol PRN Reason: Adult Acute Hypoglycemia Nursing Protocol Last Infusion: 07/07/24 06:40 Dose: Infused Norepinephrine Bitartrate (Levophed) 4 mg in 250 mls @ 0 mls/hr IV .Q0M [facility]; Protocol Last Titration: 07/08/24 06:30 Dose: 6 mcg/min, 22.5 mls/hr Albumin Human (Albumin) 12.5 gm in 50 mls @ 60 mls/hr IV PRN PRN PRN Reason: Hypotension and/or symptomatic Dextrose (D10w) 1,000 mls @ 75 mls/hr IV .[id number] [facility] Last Infusion: 07/07/24 23:26 Dose: 75 mls/hr Insulin Human Lispro (Insulin Lispro 100 Unit/1 Ml) 0 unit SUBCUT TIDWM [facility]; Protocol Last Admin: 07/07/24 12:22 Dose: Not Given Levothyroxine Sodium (Levothyroxine 25 Mcg Tablet) 25 mcg PO DAILY [facility] Last Admin: 07/07/24 09:43 Dose: 25 mcg Midodrine (Midodrine 5 Mg Tablet) 10 mg PO TID [facility] Last Admin: 07/07/24 21:18 Dose: 10 mg Morphine Sulfate (Morphine Ir 15 Mg Tablet) 15 mg PO Q6H PRN PRN Reason: MODERATE PAIN Last Admin: 07/06/24 04:39 Dose: 15 mg Morphine Sulfate (Morphine 4 Mg/Ml Sdv 1 Ml) 2 mg IVP Q4H PRN PRN Reason: SEVERE PAIN Last Admin: 07/06/24 20:34 Dose: 2 mg Multivitamins (Q-Xvzsxhy-Oydqezn C Tablet) 1 each PO DAILY [facility] Last Admin: 07/07/24 09:43 Dose: 1 each Ondansetron HCl (Ondansetron 2 Mg/Ml Sdv 2 Ml) 4 mg IVP Q6H PRN PRN Reason: NAUSEA AND VOMITING Senna/Docusate Sodium (Sennosides-Docusate Tablet) 1 tab PO DAILY [facility] Last Admin: 07/07/24 09:43 Dose: 1 tab Vitals/I&O/Wt Last Vital Signs Temp 97.8 F 07/08/24 02:00 Pulse 70 07/08/24 07:45 Resp 10 L 07/08/24 07:45 BP 130/79 07/08/24 07:45 Pulse Ox 95 07/08/24 07:45 O2 Del Method Nasal Cannula 07/08/24 05:15 O2 Flow Rate 1 07/08/24 05:15 07/07/24 07/08/24 07/08/24 22:59 06:59 14:59 Intake Total 153.625 / 771.125 567.834 / 1338.959 Output Total 125 / 225 100 / 325 Balance 28.625 / 546.125 467.834 / 1013.959 Weight last 48 hrs Weight 275 lb 9.2 oz Weight 274 lb 7 oz Weight 278 lb 14.156 oz Physical Exam 2 Narrative: GENERAL: The patient is alert and oriented times three. Not in any acute distress. Chronically ill looking. HEENT: Moderate pallor, no icterus or lymphadenopathy.Oral cavity: There are no mucous membrane lesions. NECK: Trachea appears to be central. No masses noted. No JVD or thyromegaly appreciated. RESPIRATORY: Chest is symmetrical. No intercostals muscle retraction or any accessory muscle activation. There is no chest wall tenderness. The breath sounds are diminished in the bases. Dependent edema on the posterior aspect of the lower chest. BREASTS: Deferred. HEART: The aortic valve opening and closing sounds are normal. Variable intensity. Systolic murmur grade 3 or 6 in the mitral area. No diastolic murmurs. ABDOMEN: Markedly distended. Normal bowel sounds : Deferred. RECTAL: Deferred. LYMPHATIC: No lymphadenopathy noted in the neck. EXTREMITIES: 3+ edema both lower extremities. No cyanosis. MUSCULOSKELETAL: No acute joint deformities or swelling SKIN: There are no significant rashes or ecchymosis NEUROPSYCHIATRIC: The patient is alert and oriented x3. Pleasant but ill looking. No focal motor deficits. Urinary Catheter Management: Vazquez: Cath Placed During This Visit: yes Reason for Continuing Indwelling Catheter: Accurate Measurement of Urinary Output in Critically Ill Patients Urinary Catheter Date of Insertion: 07/05/24 Urinary Catheter Time of Insertion: 18:58 Data 07/08/24 03:33 07/08/24 03:33 Other Labs: Laboratory Last Values WBC 11.36 10^3/uL (3.29-11.43) 07/08/24 03:33 RBC 2.73 10^6/uL (3.85-5.65) L 07/08/24 03:33 Hgb 9.20 g/dL (11.27-16.99) L 07/08/24 03:33 Hct 28.6 % (37-53) L 07/08/24 03:33 MCV 104.8 fl (82-101) H 07/08/24 03:33 MCH 33.7 pg (27-33) H 07/08/24 03:33 MCHC 32.2 g/dL (30-55) 07/08/24 03:33 RDW 23.7 % (12.1-15.1) H 07/08/24 03:33 Plt Count 167 10^3/cmm (157-399) 07/08/24 03:33 MPV 10.8 fL (7.4-10.4) H 07/08/24 03:33 Neut % (Auto) 87.0 % 07/08/24 03:33 Lymph % (Auto) 1.5 % 07/08/24 03:33 [place] % (Auto) 8.7 % 07/08/24 03:33 Eos % (Auto) 1.8 % 07/08/24 03:33 Baso % (Auto) 0.3 % 07/08/24 03:33 Neut # (Auto) 9.88 10^3/uL (1.8-7.7) H 07/08/24 03:33 Lymph # (Auto) 0.2 10^3/uL (0.8-4.8) L 07/08/24 03:33 [place] # (Auto) 1.0 10^3/uL (0.2-0.9) H 07/08/24 03:33 Eos # (Auto) 0.2 10^3/uL (0.0-0.8) 07/08/24 03:33 Baso # (Auto) 0.0 10^3/uL (0.0-0.1) 07/08/24 03:33 Nucleated RBC % (auto) 0 % 07/08/24 03:33 Nucleated RBCs # 0.0 /100WBC 07/08/24 03:33 PT 16.60 SECONDS (12.1-14.9) H 07/06/24 02:47 INR 1.29 (0.8-1.2) H 07/06/24 02:47 Sodium 128 mmol/L (136-145) L 07/08/24 03:33 Potassium 4.9 mmol/L (3.5-5.1) 07/08/24 03:33 Chloride 89 mmol/L (98-107) L 07/08/24 03:33 Carbon Dioxide 26 mmol/L (22-29) 07/08/24 03:33 Anion Gap 17.9 (5-19) 07/08/24 03:33 BUN 68 mg/dL (8-23) H 07/08/24 03:33 Creatinine 3.6 mg/dL (0.7-1.2) H 07/08/24 03:33 GFR Calculation Not Reportable 07/08/24 03:33 Glucose 72 mg/dL (65-115) 07/08/24 03:33 POC Glucose 108 mg/dL (70-110) 07/08/24 00:15 Calculated Osmolality 284 mOsm/kg (285-295) L 07/08/24 03:33 Calcium 8.9 mg/dL (8.5-10.5) 07/08/24 03:33 Magnesium 2.2 mg/dL (1.7-2.3) 07/08/24 03:33 Total Bilirubin 0.8 mg/dL (0.15-1.2) 07/08/24 03:33 AST 56 U/L (0-40) H 07/08/24 03:33 ALT 26 U/L (0-41) 07/08/24 03:33 Alkaline Phosphatase 183 U/L (40-130) H 07/08/24 03:33 Total Protein 6.2 g/dL (6.6-8.7) L 07/08/24 03:33 Albumin 3.4 g/dL (3.5-5.2) L 07/08/24 03:33 Globulin 2.8 g/dL (1.3-4.6) 07/08/24 03:33 25-OH Vitamin D Total 10 ng/mL (30-100) L 07/06/24 02:47 Procalcitonin 0.25 ng/mL (0-0.5) 07/05/24 04:02 TSH 16.99 uIU/mL (0.27-4.20) H 07/05/24 04:02 PTH Intact 177.1 pg/mL (15-65) H 07/06/24 02:47 Calcium (PTH Intact) 8.7 mg/dL (8.5-10.5) 07/06/24 02:47 Random Cortisol 22.67 ug/dL (2.47-19.5) H 07/06/24 02:47 Hep Bs Antigen Non-reactive (Nonreactive) 07/05/24 17:54 Hep Bs Antibody < 3.5 (11.5-1000) L 07/05/24 17:54 Hepatitis C Antibody Non-reactive (Nonreactive) 07/05/24 17:54 A&P Assessment and plan (1) Biventricular failure: I may hold off on the dobutamine infusion for 24 hours, if feasible and then restart. The oral medication options are limited. (2) Ischemic cardiomyopathy: Patient is LV ejection fraction of 25 to 30%. Apparently the patient could not tolerate Entresto (3) Atherosclerotic heart disease of [place] coronary artery without angina pectoris: Seems to be stable with no chest pain. Qualifiers: [place] vs. transplanted heart: [place] heart Qualified Code(s): I25.10 - Atherosclerotic heart disease of [place] coronary artery without angina pectoris (4) Hx of aortic valve replacement: Valve function appears to be appropriate. (5) Decompensated hepatic cirrhosis: Continue the current management. Found to be not a candidate for TIPS. (6) Ascites: Consider paracentesis for symptom relief. Qualifiers: Ascites type: other type Qualified Code(s): R18.8 - Other ascites (7) Microcytic anemia: Is a blood count remained stable, may consider anticoagulation. (8) ICD (implantable cardioverter-defibrillator) in place: Found to be functioning okay. Continue on the current management. (9) Atrial fibrillation: The ventricular rate is under control. The Eliquis is on hold for possible paracentesis Qualifiers: Atrial fibrillation type: permanent Qualified Code(s): I48.21 - Permanent atrial fibrillation (10) Bilateral carotid artery stenosis: Stable with no specific symptoms. Plan Discussed with the patient and his . In view of the patient's multiorgan failure and inability to tolerate many other medications, his overall prognosis is poor. The does not want him to have chest compression or any aggressive measures, if he develops a cardiac arrest. Advised the to discuss this with the primary attending. Based on the clinical progress, further recommendations will be made Attestations 2 Medical Necessity Statement*: Deferred to the primary attending Coding Level of Care Code Acute Code for Chg Fwd Diagnoses Biventricular failure I50.82 Ischemic cardiomyopathy I25.5 Atherosclerosis of [place] coronary artery of [place] heart without angina pectoris I25.10 [place] vs. transplanted heart: [place] heart Hx of aortic valve replacement Z95.2 Decompensated hepatic cirrhosis K72.90; K74.60 Other ascites R18.8 Ascites type: other type Microcytic anemia D50.9 ICD (implantable cardioverter-defibrillator) in place Z95.810 Permanent atrial fibrillation I48.21 Atrial fibrillation type: permanent Bilateral carotid artery stenosis I65.23
[2024-07-08] MEDS: b-complex-vitamin c Tablet 1 EACH PO (08:48)
[2024-07-08] MEDS: duloxetine 60 mg Capsule PO (08:48)
[2024-07-08] MEDS: midodrine 5 mg TABLET 10 MG PO ×3 (08:48→21:08)
[2024-07-08] MEDS: cefTRIAXone 2,000 mg SDV 2000 MG IVP (08:48)
[2024-07-08] MEDS: levothyroxine 25 mcg Tablet PO (08:48)
[2024-07-08] MEDS: allopurinol 100 mg Tablet PO (08:48)
[2024-07-08] MEDS: sennosides-docusate Tablet 1 TAB PO (08:48)
[2024-07-08 09:29] LABS: Estmated Average Glucose 97
[2024-07-08 09:55] LABS: Procalcitonin 0.39 ng/mL (0-0.5); Thyroid Stimulating Hormone 18.02 uIU/mL (0.27-4.20); Vitamin B12 1051 pg/mL (232-1245)
[2024-07-08 10:08] LABS: Iron 24 ug/dL (59-158); Total Iron Binding Capacity 199 mcg/dl; Unsaturated Iron Binding 175 ug/dL (112-347)
[2024-07-08] MEDS: norepinephrine 4 MG/250 ML BAG 15 MG IV (10:20)
[2024-07-08] MEDS: pantoprazole DR 40 mg Tablet PO (10:20)
[2024-07-08] MEDS: methylPREDNISolone sod succ 40 mg/mL INJ IVP ×2 (10:24→22:04)
[2024-07-08 11:05] LABS: T3 Free 1.2 PG/ML (2.0-4.4)
[2024-07-08 11:21] LABS: Glucose Point of Care 123 mg/dL (70-110)
--- NOTE | 2024-07-08 15:02 | PC.SOCIAL ---
IMM Update pg 2 of IMM updated and reviewed w/ patients . Copy provided and copy dated, initialed and placed in chart.
[2024-07-08 15:24] LABS: Anti-Nuclear Antibody Screen NEGATIVE (NEGATIVE)
--- NOTE | 2024-07-08 17:42 | PM.PN ---
Subjective Subjective: Hospital course, labs appreciated. Seen with at bedside. Patient is slightly confused though overall AOx3. He is maintained on Levophed of 5, dobutamine of 5. On 1 L of oxygen supplementation. Mean artery pressure maintained over 65. Did undergo dialysis yesterday with 1.1 L of ultrafiltrate, minimal urine output otherwise Vitals/I&O/Wt Last Vital Signs Temp 98.5 F 07/08/24 12:01 Pulse 71 07/08/24 16:00 Resp 20 H 07/08/24 16:00 BP 136/77 07/08/24 16:00 Pulse Ox 96 07/08/24 15:45 O2 Del Method Nasal Cannula 07/08/24 09:29 O2 Flow Rate 0.5 07/08/24 09:29 07/08/24 07/08/24 07/08/24 06:59 14:59 22:59 Intake Total 567.834 / 1338.959 350.50 / 350.50 Output Total 100 / 325 Balance 467.834 / 1013.959 350.50 / 350.50 Weight last 48 hrs Weight 124.999 kg Weight 124.483 kg Physical Exam Narrative: General: AO x 2 to 3, chronically sick appearing HEENT: PERRLA, pupils bilaterally equal and reactive Chest: Bilateral bronchial breath sounds all over lung bray with occasional rhonchi decreased air entry bilateral lower zone, no monitor of oxygen supplementation CVS: S1-S2 irregularly irregular, pansystolic murmur at apex rating to anterior axillary line, pansystolic murmur at fourth intercostal space left retrosternal, no tachycardia, no gallops, no rubs Abdomen: Soft, nontender, no organomegaly, bowel sounds present Neuro: No focal deficits, no facial deformity, power 5/5 in all limbs Urinary Catheter Management: Vazquez: Cath Placed During This Visit: yes Reason for Continuing Indwelling Catheter: Accurate Measurement of Urinary Output in Critically Ill Patients Urinary Catheter Date of Insertion: 07/05/24 Urinary Catheter Time of Insertion: 18:58 Data 07/08/24 03:33 07/08/24 03:33 A&P Assessment and plan (1) Shock: Cardiogenic in nature. Ischemic cardiomyopathy with decompensated cardiogenic shock along with multiorgan dysfunction in setting of hepatocardiorenal syndrome with renal failure on hemodialysis. Patient not deemed a candidate for TIPS as well as LVAD as per [facility]. Currently on dobutamine drip and Levophed. Discussed detail with cardiology team. Stop dobutamine drip. Wean off Levophed keeping mean arterial pressure over 60-65. Monitor urine output. Fluid restriction to less than 1500 cc. (2) Biventricular failure: (3) Cardiorenal syndrome with renal failure: Appreciate CMP. Appreciate nephrology recommendations. Plan for possible dialysis today. Monitor mean arterial pressure. Adjust Levophed accordingly. Continue albumin as needed. (4) Multi-organ system dysfunction: Along with decompensated hepatic cirrhosis and acute renal failure requiring hemodialysis (5) Hyponatremia: Most likely in setting of congestive heart failure. Monitor BMP daily. (6) Hypoglycemia: Persistent hypoglycemia most likely in setting of multiorgan dysfunction. Patient currently on D10 at 75 cc/h. Concerns for fluid overload given severe ischemic cardiomyopathy. Stop IV fluids. Start on Solu-Medrol 40 mg Q12 hourly. If needed will add glucagon. Hypoglycemia protocol. (7) Ischemic cardiomyopathy: Last echocardiogram shows an EF of 20% with global LV hypokinesis, grade 4 diastolic dysfunction, possibility of subvalvular equal genic oscillating serpentine structure which could be chordae tendineae versus possible vegetation near mitral valve, bioprosthetic aortic valve. Continue with home dose of aspirin (8) Goals of care, counseling/discussion: Had a detailed goals of care discussion with the patient and patient's at bedside. We discussed unfortunately patient has decompensated cardiogenic shock with signs of multiorgan dysfunction and he has not been deemed a candidate for LVAD or TIPS procedure. Discussed that unfortunately currently he is dependent on Levophed and dobutamine drip which is not working well for him as well as he remains an uric with worsening of renal function requiring hemodialysis. As per family and patient quality of life is more important than quantity of life and they would not want to live like this. Discussed about possible comfort measures. would consider hospice but would want more details before making a decision. Case management alerted. Discussed about CODE STATUS. Patient and would want to change the CODE STATUS to DNR/DNI. (9) Hemoperitoneum: (10) Hypothyroidism: TSH elevated on recent admission. Will recheck and add free T3 and free T4. Depending on the levels will plan to switch from oral levothyroxine to IV levothyroxine. Appreciate recent cortisol levels. (11) CAD (coronary artery disease): Qualifiers: Coronary Disease-Associated Artery/Lesion type: [place] artery [place] vs. transplanted heart: [place] heart Associated angina: without angina Qualified Code(s): I25.10 - Atherosclerotic heart disease of [place] coronary artery without angina pectoris (12) Chronic systolic (congestive) heart failure: (13) H/O aortic root repair: (14) Chronic anticoagulation: (15) Diabetes: (16) Liver cirrhosis: (17) Decompensated hepatic cirrhosis: (18) ICD (implantable cardioverter-defibrillator) in place: Plan Analgesia: Glycemic control: Hypoglycemia protocol Nutrition: Cardiac diet CODE STATUS: Changed to DNR/DNI PUD prophylaxis: Protonix DVT prophylaxis: Not on anticoagulation given concerns for recent hemoperitoneum. Eliquis on hold. Discharge planning: Possibly home with home health versus home with hospice Continue with care at ICU This documentation was created by [email or web address] seismometer operator software. Every effort was made to ensure accuracy of seismometer operator. Any obvious errors or omissions should be clarified with the author of the document. Attestations Medical Necessity Statement*: Requires further hospitalization for management of end-stage cardiac disease, ischemic cardiomyopathy with cardio hepatorenal syndrome, cardiogenic shock with multiorgan dysfunction as patient is vasopressor dependent on hemodialysis while further goals of care discussions were done Critical Care Time: The high probability of a clinically significant, sudden or life threatening deterioration of the patient's [cardiac, renal, GI] system(s) required my full and direct attention, intervention and personal management. The critical care time is as shown. This time is in addition to time spent performing any reported procedures but includes the following: [x] Data and vital sign review and interpretation [x] Patient assessment, examination and intervention [x] Documentation [x] Medication orders and management Critical Care Time (min): 80 Coding Level of Care Code Critical Care >/= 30 minutes Critical care time (in minutes): 80 The high probability of a clinically significant, sudden or life threatening deterioration, as referenced in this documentation, required my full and direct attention, intervention and personal management. The critical care time shown is in addition to time spent performing any reported separately billable procedures and includes the following: [x] Data and vital sign review and interpretation [x] Patient assessment, examination and intervention [x] Medication orders and management [x] Patient/Family updates as able [x] Care Coordination and Documentation. Other Coding Information This patient has a high probability of clinically significant, sudden or life threatening deterioration of the patient's (neurological/pulmonary/cardiac/renal/ID/endocrine) systems required my full, direct attention, the highest level of physician preparedness for urgent intervention and personal management. I managed/supervised life or organ supporting interventions that required frequent physician assessment. I devoted my full attention in the ICU to the direct care of this patient for the period of time indicated above. Time I spent with family or surrogate(s) is included only if the patient was incapable of providing necessary information or participating in decision making. This time includes the following services provided: Telemetry review Hemodynamic interpretation, assessment and management Review and interpretation of CXR Review and interpretation of lab values Review and interpretation of microbiologic data and culture results Review of medications and administration Review and interpretation of Nutrition requirements and management Discussion of management with other consultants and services Clinical update to family members Diagnoses Shock R57.9 Biventricular failure I50.82 Cardiorenal syndrome with renal failure I13.10 Multi-organ system dysfunction Hyponatremia E87.1 Hypoglycemia E16.2 Ischemic cardiomyopathy I25.5 Goals of care, counseling/discussion Z71.89 Hemoperitoneum K66.1 Hypothyroidism E03.9 Coronary artery disease involving [place] coronary artery of [place] heart without angina pectoris I25.10 Coronary Disease-Associated Artery/Lesion type: [place] artery [place] vs. transplanted heart: [place] heart Associated angina: without angina Chronic systolic (congestive) heart failure I50.22 H/O aortic root repair Z98.890 Chronic anticoagulation Z79.01 Diabetes E11.9 Liver cirrhosis K74.60 Decompensated hepatic cirrhosis K72.90; K74.60 ICD (implantable cardioverter-defibrillator) in place Z95.810
[2024-07-08] MEDS: tamsulosin 0.4 mg Capsule PO (18:15)
[2024-07-08] MEDS: levothyroxine 100 mcg SDV 50 MCG IVP (19:09)
[2024-07-09] VITALS (59 sets, daily range): BP systolic 84–154; BP diastolic 50–79; PULSE 65–76; RESP 10–24; TEMP 36.6–36.8; O2SAT 90–99
[2024-07-09 05:02] LABS: Hematocrit 29.1 % (37-53); Lymphocytes # 0.1 10^3/uL (0.8-4.8); Lymphocytes % 1.4 %; Mean Corpuscular HGB Conc 32.3 g/dL (30-55); Mean Corpuscular Hemoglobin 34.1 pg (27-33); Mean Corpuscular Volume 105.4 fl (82-101); Mean Platelet Volume 10.5 fL (7.4-10.4); Monocytes # 0.1 10^3/uL (0.2-0.9); Monocytes % 1.3 %; Neutrophils # 6.75 10^3/uL (1.8-7.7); Nucleated Red Blood Cells % 0 %; Platelet Count 168 10^3/cmm (157-399); Red Blood Count 2.76 10^6/uL (3.85-5.65); Red Cell Distribution Width 23.4 % (12.1-15.1); White Blood Count 6.96 10^3/uL (3.29-11.43)
[2024-07-09 05:23] LABS: Magnesium 2.1 mg/dL (1.7-2.3)
[2024-07-09 05:26] LABS: Alanine Aminotransferase 26 U/L (0-41); Albumin Level 3.3 g/dL (3.5-5.2); Alkaline Phosphatase 186 U/L (40-130); Anion Gap 21.8 (5-19); Aspartate Amino Transferase 56 U/L (0-40); Blood Urea Nitrogen 47 mg/dL (8-23); Calcium 8.6 mg/dL (8.5-10.5); Carbon Dioxide 24 mmol/L (22-29); Chloride 94 mmol/L (98-107); Globulin 3.1 g/dL (1.3-4.6); Glucose 102 mg/dL (65-115); Osmolality Calculated 292 mOsm/kg (285-295); Potassium 4.8 mmol/L (3.5-5.1); Sodium 135 mmol/L (136-145); Total Bilirubin 0.9 mg/dL (0.15-1.2); Total Protein 6.4 g/dL (6.6-8.7)
[2024-07-09 05:42] LABS: Folate Level 7.5 ng/mL (4.5-32.2)
[2024-07-09 06:04] LABS: Glucose Point of Care 93 mg/dL (70-110)
--- NOTE | 2024-07-09 08:01 | P.PN_ITS ---
Subjective 2 Subjective: s/p HD yesterday off pressors off O2 Medications: Reviewed: Yes Vitals/I&O/Wt Last Vital Signs Temp 98 F 07/09/24 04:00 Pulse 72 07/09/24 07:30 Resp 10 L 07/09/24 07:30 BP 119/66 07/09/24 07:30 Pulse Ox 94 07/09/24 06:00 O2 Del Method Room Air 07/09/24 06:00 O2 Flow Rate 0.5 07/08/24 09:29 07/08/24 07/09/24 07/09/24 22:59 06:59 14:59 Intake Total 1548.208 / 1898.708 Output Total 2250 / 2250 250 / 2500 Balance -701.792 / -351.292 -250 / -601.292 Weight last 48 hrs Weight 123.009 kg Weight 124.5 kg Weight 124.999 kg Physical Exam 2 Narrative: more awake,, talking, responsive HEENT normocephalic atraumatic neck is supple lungs have improved air mvoement Heart irregular with systolic murmurs. Abdomen distended positive bowel sounds positive ascites. Extremities have bilateral edema 2+. Neuro -more awake and verbal, still confused Dialysis access right IJ permacath. Urinary Catheter Management: Vazquez: Cath Placed During This Visit: yes Reason for Continuing Indwelling Catheter: Accurate Measurement of Urinary Output in Critically Ill Patients Urinary Catheter Date of Insertion: 07/05/24 Urinary Catheter Time of Insertion: 18:58 Data 07/09/24 04:37 07/09/24 04:37 A&P Assessment and plan (1) Acute kidney injury superimposed on CKD: 73-year-old gentleman heart failure combined systolic and diastolic with valvular heart disease. Cardiac cirrhosis increased pulmonary hypertension, acute on chronic renal failure, hypothyroidism, gout, diabetes, A-fib. 1. Heart failure acute on chronic systolic and diastolic patient has a EF of 25 to 30% not able to tolerate Entresto. The patient has an ICD patient is currently in A-fib. 2. Acute on chronic renal failure likely from hypotension, cardiac disease and secondary liver disease. - likely he has hemodynamically mediated diseases with cardio hepatorenal syndrome. Patient attempted dialysis in the past and had difficulty. -renal ultrasound -reveals ascites, no hydronephrosis -Status post hemodialysis yesterday with 1.5 L fluid removed.tolerated well 3. Anemia hemoglobin is stable. Platelets relatively stable 4. Leukocytosis. Monitor for infection. 5. Hyponatremia likely from renal failure liver failure and heart failure. Slightly improved with dialysis 6. Diabetic control-patient has hypoglycemia. Can decrease insulin dose. Medications reviewed. The patient was seen and examined using audiovisual equipment with the aid of a nurse. Who examined the patient. The patient and his consent to hemodialysis and to telehealth. Unfortunately very poor prognosis. Plan See above Attestations 2 Medical Necessity Statement*: per [facility] Coding Level of Care Code Acute Code for Chg Fwd Diagnoses Acute kidney injury superimposed on CKD N17.9; N18.9
[2024-07-09] MEDS: sennosides-docusate Tablet 1 TAB PO (08:16)
[2024-07-09] MEDS: midodrine 5 mg TABLET 10 MG PO ×3 (08:17→21:14)
[2024-07-09] MEDS: b-complex-vitamin c Tablet 1 EACH PO (08:17)
[2024-07-09] MEDS: duloxetine 60 mg Capsule PO (08:17)
[2024-07-09] MEDS: levothyroxine 100 mcg SDV 50 MCG IVP (08:17)
[2024-07-09] MEDS: allopurinol 100 mg Tablet PO (08:17)
[2024-07-09] MEDS: pantoprazole DR 40 mg Tablet PO (08:17)
[2024-07-09] MEDS: methylPREDNISolone sod succ 40 mg/mL INJ IVP (11:19)
[2024-07-09] MEDS: DOBUTamine drip 500 MG/250 ML PREMIX 18.45 MG IV (11:29)
[2024-07-09] MEDS: bumetanide 25 MG in empty flexible container 1 EACH 4 MG IV (11:30)
[2024-07-09 11:46] LABS: Glucose Point of Care 203 mg/dL (70-110)
--- NOTE | 2024-07-09 17:10 | PM.PN ---
Subjective Subjective: No acute events overnight. Patient tolerated dialysis yesterday. Currently off dobutamine and Levophed drip. Mean artery pressure has been maintained over 65. Remains on 1 L of oxygen supplementation. Seen with at bedside. Patient is more awake and alert. Asking when can he go back home. Denies any nausea, vomiting, headache. Vitals/I&O/Wt Last Vital Signs Temp 98.0 F 07/09/24 08:01 Pulse 70 07/09/24 16:00 Resp 18 07/09/24 16:00 BP 115/66 07/09/24 16:00 Pulse Ox 92 07/09/24 09:17 O2 Del Method Room Air 07/09/24 09:17 O2 Flow Rate 0.5 07/08/24 09:29 07/09/24 07/09/24 07/09/24 06:59 14:59 22:59 Intake Total 720 / 720 Output Total 250 / 2500 100 / 100 Balance -250 / -601.292 620 / 620 Weight last 48 hrs Weight 123.009 kg Weight 124.5 kg Weight 124.999 kg Physical Exam Narrative: General: AO x 2 to 3, chronically sick appearing HEENT: PERRLA, pupils bilaterally equal and reactive Chest: Bilateral bronchial breath sounds all over lung bray with occasional rhonchi decreased air entry bilateral lower zone, no monitor of oxygen supplementation CVS: S1-S2 irregularly irregular, pansystolic murmur at apex rating to anterior axillary line, pansystolic murmur at fourth intercostal space left retrosternal, no tachycardia, no gallops, no rubs Abdomen: Soft, nontender, no organomegaly, bowel sounds present Neuro: No focal deficits, no facial deformity, power 5/5 in all limbs Urinary Catheter Management: Vazquez: Cath Placed During This Visit: yes Reason for Continuing Indwelling Catheter: Accurate Measurement of Urinary Output in Critically Ill Patients Urinary Catheter Date of Insertion: 07/05/24 Urinary Catheter Time of Insertion: 18:58 Data 07/09/24 04:37 07/09/24 04:37 A&P Assessment and plan (1) Shock: Cardiogenic in nature. Ischemic cardiomyopathy with decompensated cardiogenic shock along with multiorgan dysfunction in setting of hepatocardiorenal syndrome with renal failure on hemodialysis. Patient not deemed a candidate for TIPS as well as LVAD as per [facility]. Currently on dobutamine drip and Levophed. Discussed detail with cardiology team. Stop dobutamine drip. Wean off Levophed keeping mean arterial pressure over 60-65. Monitor urine output. Fluid restriction to less than 1500 cc. (2) Biventricular failure: (3) Cardiorenal syndrome with renal failure: Appreciate CMP. Appreciate nephrology recommendations. Plan for possible dialysis today. Monitor mean arterial pressure. Adjust Levophed accordingly. Continue albumin as needed. (4) Multi-organ system dysfunction: Along with decompensated hepatic cirrhosis and acute renal failure requiring hemodialysis (5) Hyponatremia: Most likely in setting of congestive heart failure. Monitor BMP daily. (6) Hypoglycemia: Persistent hypoglycemia most likely in setting of multiorgan dysfunction. Patient currently on D10 at 75 cc/h. Concerns for fluid overload given severe ischemic cardiomyopathy. Stop IV fluids. Start on Solu-Medrol 40 mg Q12 hourly. If needed will add glucagon. Hypoglycemia protocol. (7) Ischemic cardiomyopathy: Last echocardiogram shows an EF of 20% with global LV hypokinesis, grade 4 diastolic dysfunction, possibility of subvalvular equal genic oscillating serpentine structure which could be chordae tendineae versus possible vegetation near mitral valve, bioprosthetic aortic valve. Continue with home dose of aspirin (8) Goals of care, counseling/discussion: Had a detailed goals of care discussion with the patient and patient's at bedside. We discussed unfortunately patient has decompensated cardiogenic shock with signs of multiorgan dysfunction and he has not been deemed a candidate for LVAD or TIPS procedure. Discussed that unfortunately currently he is dependent on Levophed and dobutamine drip which is not working well for him as well as he remains an uric with worsening of renal function requiring hemodialysis. As per family and patient quality of life is more important than quantity of life and they would not want to live like this. Discussed about possible comfort measures. would consider hospice but would want more details before making a decision. Case management alerted. Discussed about CODE STATUS. Patient and would want to change the CODE STATUS to DNR/DNI. (9) Hemoperitoneum: (10) Hypothyroidism: TSH elevated on recent admission. Will recheck and add free T3 and free T4. Depending on the levels will plan to switch from oral levothyroxine to IV levothyroxine. Appreciate recent cortisol levels. (11) CAD (coronary artery disease): Qualifiers: Coronary Disease-Associated Artery/Lesion type: [place] artery [place] vs. transplanted heart: [place] heart Associated angina: without angina Qualified Code(s): I25.10 - Atherosclerotic heart disease of [place] coronary artery without angina pectoris (12) Chronic systolic (congestive) heart failure: (13) H/O aortic root repair: (14) Chronic anticoagulation: (15) Diabetes: (16) Liver cirrhosis: (17) Decompensated hepatic cirrhosis: (18) ICD (implantable cardioverter-defibrillator) in place: Plan Plan for the day: Had an extensive goals of care discussion again with patient and at bedside. We discussed as further goals of care discussed yesterday about better quality of life options would be home with home health versus hospice. stated with home health they would be bound at home which they would not want and knowing the baseline comorbidities, untreatable or nonreversible health trouble they would want to go further with hospice. We discussed hospice would most likely need no further dialysis and possibly no further dobutamine drip while nature takes its course and he remains on oral medications. verbalizes understanding and is agreeable. wants to discuss further with Dr. Londono regarding possibly changing of pacemaker battery. Care discussed in detail with Dr. Londono from cardiology. He reports after conversation with patient's they want a trial of 24 more hours of dobutamine drip and Bumex. They do not want any further dialysis. Bumex drip and dobutamine drip started as per cardiology. Monitor urine output. Continue with midodrine 10 mg 3 times daily. Blood sugars have been well-controlled. Switch Solu-Medrol to 40 mg IV daily. Hypoglycemia protocol. Repeat CBC and CMP in AM. Recheck lactate in AM. Repeat CMP in evening to monitor for renal functions. Out of bed to chair. Occupational Therapy evaluation. Analgesia: Morphine 2 mg every 4 hours as needed Glycemic control: Hypoglycemia protocol Nutrition: Cardiac diet CODE STATUS: Changed to DNR/DNI PUD prophylaxis: Protonix DVT prophylaxis: Not on anticoagulation given concerns for recent hemoperitoneum. Eliquis on hold. Discharge planning: Patient's wants to go home with hospice. Case management alerted. Continue with care at ICU This documentation was created by [employer] business practices supervisor software. Every effort was made to ensure accuracy of business practices supervisor. Any obvious errors or omissions should be clarified with the author of the document. Attestations Medical Necessity Statement*: Requires further hospitalization for management of biventricular failure, cardiogenic shock with multiorgan failure on hemodialysis, persistent hypoglycemia while further goals of care discussions are done as patient remains oliguric and repeat trial of Bumex and dobutamine is down Critical Care Time: The high probability of a clinically significant, sudden or life threatening deterioration of the patient's [cardiac, GI, renal] system(s) required my full and direct attention, intervention and personal management. The critical care time is as shown. This time is in addition to time spent performing any reported procedures but includes the following: [x] Data and vital sign review and interpretation [x] Patient assessment, examination and intervention [x] Documentation [x] Medication orders and management Critical Care Time (min): 80 Coding Level of Care Code Critical Care >/= 30 minutes Critical care time (in minutes): 80 The high probability of a clinically significant, sudden or life threatening deterioration, as referenced in this documentation, required my full and direct attention, intervention and personal management. The critical care time shown is in addition to time spent performing any reported separately billable procedures and includes the following: [x] Data and vital sign review and interpretation [x] Patient assessment, examination and intervention [x] Medication orders and management [x] Patient/Family updates as able [x] Care Coordination and Documentation. Other Coding Information This patient has a high probability of clinically significant, sudden or life threatening deterioration of the patient's (neurological/pulmonary/cardiac/renal/ID/endocrine) systems required my full, direct attention, the highest level of physician preparedness for urgent intervention and personal management. I managed/supervised life or organ supporting interventions that required frequent physician assessment. I devoted my full attention in the ICU to the direct care of this patient for the period of time indicated above. Time I spent with family or surrogate(s) is included only if the patient was incapable of providing necessary information or participating in decision making. This time includes the following services provided: Telemetry review Hemodynamic interpretation, assessment and management Review and interpretation of CXR Review and interpretation of lab values Review and interpretation of microbiologic data and culture results Review of medications and administration Review and interpretation of Nutrition requirements and management Discussion of management with other consultants and services Clinical update to family members Diagnoses Shock R57.9 Biventricular failure I50.82 Cardiorenal syndrome with renal failure I13.10 Multi-organ system dysfunction Hyponatremia E87.1 Hypoglycemia E16.2 Ischemic cardiomyopathy I25.5 Goals of care, counseling/discussion Z71.89 Hemoperitoneum K66.1 Hypothyroidism E03.9 Coronary artery disease involving [place] coronary artery of [place] heart without angina pectoris I25.10 Coronary Disease-Associated Artery/Lesion type: [place] artery [place] vs. transplanted heart: [place] heart Associated angina: without angina Chronic systolic (congestive) heart failure I50.22 H/O aortic root repair Z98.890 Chronic anticoagulation Z79.01 Diabetes E11.9 Liver cirrhosis K74.60 Decompensated hepatic cirrhosis K72.90; K74.60 ICD (implantable cardioverter-defibrillator) in place Z95.810
[2024-07-09 17:45] LABS: Alanine Aminotransferase 28 U/L (0-41); Albumin Level 3.5 g/dL (3.5-5.2); Alkaline Phosphatase 177 U/L (40-130); Anion Gap 21.6 (5-19); Aspartate Amino Transferase 41 U/L (0-40); Blood Urea Nitrogen 54 mg/dL (8-23); Calcium 8.9 mg/dL (8.5-10.5); Carbon Dioxide 25 mmol/L (22-29); Chloride 92 mmol/L (98-107); Glucose 242 mg/dL (65-115); Osmolality Calculated 301 mOsm/kg (285-295); Potassium 4.6 mmol/L (3.5-5.1); Sodium 134 mmol/L (136-145); Total Bilirubin 0.7 mg/dL (0.15-1.2); Total Protein 6.5 g/dL (6.6-8.7)
[2024-07-09 17:46] LABS: Creatinine Clr Calc Pharmacy 32.7762
[2024-07-09] MEDS: calcium carbonate 500 mg Chew Tablet PO (18:20)
[2024-07-09] MEDS: tamsulosin 0.4 mg Capsule PO (18:21)
[2024-07-09 21:49] LABS: Glucose Point of Care 257 mg/dL (70-110)
--- NOTE | 2024-07-09 22:11 | P.PN_ITS ---
Subjective 2 Subjective: The patient's condition is status quo.. He seems to be almost anuric. The blood pressure is holding up with the Levophed. No chest pain. No fever or chills. No unusual shortness of breath. Abdomen remains distended. Medications: Medication Review Details: Current Medications Acetaminophen (Acetaminophen 500 Mg Tablet) 500 mg PO Q4H PRN PRN Reason: fever Last Admin: 07/04/24 19:28 Dose: 500 mg Albuterol/Ipratropium (Ipratropium-Albuterol 3 Ml Neb) 3 ml INHALATION Q6H PRN PRN Reason: SHORTNESS OF BREATH Allopurinol (Allopurinol 100 Mg Tablet) 100 mg PO DAILY [facility] Last Admin: 07/09/24 08:17 Dose: 100 mg Apixaban (Apixaban 5 Mg Tablet) 5 mg PO BID@0800,2000 [facility] Last Admin: 07/05/24 08:53 Dose: 5 mg Calcium Carbonate (Calcium Carbonate 500 Mg Chew Tablet) 500 mg PO Q4H PRN PRN Reason: INDIGESTION Last Admin: 07/09/24 18:20 Dose: 500 mg Duloxetine HCl (Duloxetine 60 Mg Capsule) 60 mg PO DAILY [facility] Last Admin: 07/09/24 08:17 Dose: 60 mg Ergocalciferol (Ergocalciferol (Vitamin D2) 50,000 Unit Capsule) 50,000 unit PO Q7D [facility] Last Admin: 07/06/24 09:33 Dose: 50,000 unit Glucagon (Glucagon 1 Mg/Ml Kit 1 Ml) 1 mg IM ONCE PRN; Protocol PRN Reason: Adult Acute Hypoglycemia Nursing Prot. Norepinephrine Bitartrate (Levophed) 4 mg in 250 mls @ 0 mls/hr IV .Q0M [facility]; Protocol Last Titration: 07/09/24 10:01 Dose: Infused Albumin Human (Albumin) 12.5 gm in 50 mls @ 60 mls/hr IV PRN PRN PRN Reason: Hypotension and/or symptomatic Dextrose (D5w) 500 mls @ 0 mls/hr IV ONCE PRN; Protocol PRN Reason: Adult Acute Hypoglycemia Prot Dextrose (D10w) 125 mls @ 750 mls/hr IV PRN PRN; Protocol PRN Reason: Adult Acute Hypoglycemia Nursing Protocol Dextrose (D10w) 250 mls @ 1,000 mls/hr IV PRN PRN; Protocol PRN Reason: Adult Acute Hypoglycemia Nursing Protocol Bumetanide 25 mg/ N/A 100 mls @ 4 mls/hr IV .Q24H [facility] Last Admin: 07/09/24 11:30 Dose: 1 mg/hr, 4 mls/hr Dobutamine HCl/Dextrose (Dobutamine Drip) 500 mg in 250 mls @ 0 mls/hr IV .Q0M [facility]; Protocol Last Admin: 07/09/24 11:29 Dose: 5 mcg/kg/min, 18.45 mls/hr Levothyroxine Sodium (Levothyroxine 100 Mcg Sdv) 50 mcg IVP DAILY [facility] Last Admin: 07/09/24 08:17 Dose: 50 mcg Methylprednisolone Sodium Succinate (Methylprednisolone Sod Succ 40 Mg/Ml Inj) 40 mg IVP DAILY [facility] Midodrine (Midodrine 5 Mg Tablet) 10 mg PO TID [facility] Last Admin: 07/09/24 21:14 Dose: 10 mg Morphine Sulfate (Morphine 4 Mg/Ml Sdv 1 Ml) 2 mg IVP Q4H PRN PRN Reason: SEVERE PAIN Last Admin: 07/06/24 20:34 Dose: 2 mg Multivitamins (T-Nrxbjgx-Sbloohq C Tablet) 1 each PO DAILY [facility] Last Admin: 07/09/24 08:17 Dose: 1 each Ondansetron HCl (Ondansetron 2 Mg/Ml Sdv 2 Ml) 4 mg IVP Q6H PRN PRN Reason: NAUSEA AND VOMITING Pantoprazole Sodium (Pantoprazole Dr 40 Mg Tablet) 40 mg PO DAILY [facility] Last Admin: 07/09/24 08:17 Dose: 40 mg Senna/Docusate Sodium (Sennosides-Docusate Tablet) 1 tab PO DAILY [facility] Last Admin: 07/09/24 08:16 Dose: 1 tab Tamsulosin HCl (Tamsulosin 0.4 Mg Capsule) 0.4 mg PO QPM [facility] Last Admin: 07/09/24 18:21 Dose: 0.4 mg Vitals/I&O/Wt Last Vital Signs Temp 98.0 F 07/09/24 08:01 Pulse 71 07/09/24 19:00 Resp 14 07/09/24 18:00 BP 101/51 07/09/24 18:00 Pulse Ox 90 07/09/24 18:00 O2 Del Method Room Air 07/09/24 09:17 O2 Flow Rate 0.5 07/08/24 09:29 07/09/24 07/09/24 07/09/24 06:59 14:59 22:59 Intake Total 720 / 720 480 / 1200 Output Total 250 / 2500 100 / 100 25 / 125 Balance -250 / -601.292 620 / 620 455 / 1075 Weight last 48 hrs Weight 271 lb 3 oz Weight 274 lb 7.608 oz Weight 275 lb 9.2 oz Physical Exam 2 Narrative: GENERAL: The patient is alert and oriented times three. Not in any acute distress. Chronically ill looking. HEENT: Moderate pallor, no icterus or lymphadenopathy.Oral cavity: There are no mucous membrane lesions. NECK: Trachea appears to be central. No masses noted. No JVD or thyromegaly appreciated. RESPIRATORY: Chest is symmetrical. No intercostals muscle retraction or any accessory muscle activation. There is no chest wall tenderness. The breath sounds are diminished in the bases. Dependent edema on the posterior aspect of the lower chest. BREASTS: Deferred. HEART: The aortic valve opening and closing sounds are normal. Variable intensity. Systolic murmur grade 3 or 6 in the mitral area. No diastolic murmurs. ABDOMEN: Markedly distended. Normal bowel sounds : Deferred. RECTAL: Deferred. LYMPHATIC: No lymphadenopathy noted in the neck. EXTREMITIES: 3+ edema both lower extremities. No cyanosis. MUSCULOSKELETAL: No acute joint deformities or swelling SKIN: There are no significant rashes or ecchymosis NEUROPSYCHIATRIC: The patient is alert and oriented x3. Pleasant but ill looking. No focal motor deficits. Urinary Catheter Management: Vazquez: Cath Placed During This Visit: yes Reason for Continuing Indwelling Catheter: Accurate Measurement of Urinary Output in Critically Ill Patients Urinary Catheter Date of Insertion: 07/05/24 Urinary Catheter Time of Insertion: 18:58 Data 07/09/24 04:37 07/09/24 17:19 Other Labs: Laboratory Last Values WBC 6.96 10^3/uL (3.29-11.43) 07/09/24 04:37 RBC 2.76 10^6/uL (3.85-5.65) L 07/09/24 04:37 Hgb 9.40 g/dL (11.27-16.99) L 07/09/24 04:37 Hct 29.1 % (37-53) L 07/09/24 04:37 MCV 105.4 fl (82-101) H 07/09/24 04:37 MCH 34.1 pg (27-33) H 07/09/24 04:37 MCHC 32.3 g/dL (30-55) 07/09/24 04:37 RDW 23.4 % (12.1-15.1) H 07/09/24 04:37 Plt Count 168 10^3/cmm (157-399) 07/09/24 04:37 MPV 10.5 fL (7.4-10.4) H 07/09/24 04:37 Neut % (Auto) 97.0 % 07/09/24 04:37 Lymph % (Auto) 1.4 % 07/09/24 04:37 [place] % (Auto) 1.3 % 07/09/24 04:37 Eos % (Auto) 0.0 % 07/09/24 04:37 Baso % (Auto) 0.0 % 07/09/24 04:37 Neut # (Auto) 6.75 10^3/uL (1.8-7.7) 07/09/24 04:37 Lymph # (Auto) 0.1 10^3/uL (0.8-4.8) L 07/09/24 04:37 [place] # (Auto) 0.1 10^3/uL (0.2-0.9) L 07/09/24 04:37 Eos # (Auto) 0.0 10^3/uL (0.0-0.8) 07/09/24 04:37 Baso # (Auto) 0.0 10^3/uL (0.0-0.1) 07/09/24 04:37 Nucleated RBC % (auto) 0 % 07/09/24 04:37 Nucleated RBCs # 0.0 /100WBC 07/09/24 04:37 PT 16.60 SECONDS (12.1-14.9) H 07/06/24 02:47 INR 1.29 (0.8-1.2) H 07/06/24 02:47 Sodium 134 mmol/L (136-145) L 07/09/24 17:19 Potassium 4.6 mmol/L (3.5-5.1) 07/09/24 17:19 Chloride 92 mmol/L (98-107) L 07/09/24 17:19 Carbon Dioxide 25 mmol/L (22-29) 07/09/24 17:19 Anion Gap 21.6 (5-19) H 07/09/24 17:19 BUN 54 mg/dL (8-23) H 07/09/24 17:19 Creatinine 2.8 mg/dL (0.7-1.2) H 07/09/24 17:19 GFR Calculation Not Reportable 07/09/24 17:19 Glucose 242 mg/dL (65-115) H 07/09/24 17:19 POC Glucose 257 mg/dL (70-110) H 07/09/24 21:45 Estimat Average Glucose 97 07/08/24 03:33 Hemoglobin A1c 5.0 % (4.0-6.0) 07/08/24 03:33 Calculated Osmolality 301 mOsm/kg (285-295) H 07/09/24 17:19 Calcium 8.9 mg/dL (8.5-10.5) 07/09/24 17:19 Magnesium 2.1 mg/dL (1.7-2.3) 07/09/24 04:37 Iron 24 ug/dL (59-158) L 07/08/24 03:33 TIBC 199 mcg/dl 07/08/24 03:33 % Saturation 12.0 % (20-50) L 07/08/24 03:33 Unsat Iron Binding 175 ug/dL (112-347) 07/08/24 03:33 Total Bilirubin 0.7 mg/dL (0.15-1.2) 07/09/24 17:19 AST 41 U/L (0-40) H 07/09/24 17:19 ALT 28 U/L (0-41) 07/09/24 17:19 Alkaline Phosphatase 177 U/L (40-130) H 07/09/24 17:19 Total Protein 6.5 g/dL (6.6-8.7) L 07/09/24 17:19 Albumin 3.5 g/dL (3.5-5.2) 07/09/24 17:19 Globulin 3.0 g/dL (1.3-4.6) 07/09/24 17:19 Vitamin B12 1051 pg/mL (232-1245) 07/08/24 03:33 25-OH Vitamin D Total 10 ng/mL (30-100) L 07/06/24 02:47 Folate 7.5 ng/mL (4.5-32.2) 07/09/24 04:37 Procalcitonin 0.39 ng/mL (0-0.5) 07/08/24 03:33 TSH 18.02 uIU/mL (0.27-4.20) H 07/08/24 03:33 Free T4 0.80 ng/dL (0.82-1.77) L 07/08/24 03:33 Free T3 1.2 PG/ML (2.0-4.4) L 07/08/24 03:33 PTH Intact 177.1 pg/mL (15-65) H 07/06/24 02:47 Calcium (PTH Intact) 8.7 mg/dL (8.5-10.5) 07/06/24 02:47 Random Cortisol 22.67 ug/dL (2.47-19.5) H 07/06/24 02:47 ABHIJEET Screen Negative (NEGATIVE) 07/05/24 04:02 Hep Bs Antigen Non-reactive (Nonreactive) 07/05/24 17:54 Hep Bs Antibody < 3.5 (11.5-1000) L 07/05/24 17:54 Hepatitis C Antibody Non-reactive (Nonreactive) 07/05/24 17:54 A&P Assessment and plan (1) 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 Apparently the patient could not tolerate Entresto/hydralazine. He responded to dobutamine/Bumex infusion in the beginning. Lately he is not responding to this as well. (3) Atherosclerotic heart disease of [place] coronary artery without angina pectoris: Seems to be stable with no chest pain. Qualifiers: [place] vs. transplanted heart: [place] heart Qualified Code(s): I25.10 - Atherosclerotic heart disease of [place] coronary artery without angina pectoris (4) Hx of aortic valve replacement: Valve function appears to be appropriate. (5) Decompensated hepatic cirrhosis: Continue the current management. Found to be not a candidate for TIPS. (6) Ascites: Consider paracentesis for symptom relief. Qualifiers: Ascites type: other type Qualified Code(s): R18.8 - Other ascites (7) Microcytic anemia: Hemoglobin seems to be stable. (8) ICD (implantable cardioverter-defibrillator) in place: Found to be functioning okay. Continue on the current management. (9) Atrial fibrillation: The ventricular rate is under control. Anticoagulation management as per the primary attending Qualifiers: Atrial fibrillation type: permanent Qualified Code(s): I48.21 - Permanent atrial fibrillation (10) Bilateral carotid artery stenosis: Stable with no specific symptoms. Plan Discussed with the patient and his . In view of the patient's multiorgan failure and inability to tolerate many other medications, his overall prognosis is poor. The does not want him to have chest compression or any aggressive measures, if he develops a cardiac arrest. Today also I had a long discussion with the patient's . We will try to restart the dobutamine and the Bumex today and keep it for 24 hours. If there is no response to this medication in terms of his urine output/renal function, then we may discontinue this. At that point, the family would consider to take him home under the hospice care. Attestations 2 Medical Necessity Statement*: Patient requires continued hospital stay for close monitoring and further management Coding Level of Care Code 50798 Diagnoses Biventricular failure I50.82 Ischemic cardiomyopathy I25.5 Atherosclerosis of [place] coronary artery of [place] heart without angina pectoris I25.10 [place] vs. transplanted heart: [place] heart Hx of aortic valve replacement Z95.2 Decompensated hepatic cirrhosis K72.90; K74.60 Other ascites R18.8 Ascites type: other type Microcytic anemia D50.9 ICD (implantable cardioverter-defibrillator) in place Z95.810 Permanent atrial fibrillation I48.21 Atrial fibrillation type: permanent Bilateral carotid artery stenosis I65.23
[2024-07-10] VITALS (46 sets, daily range): BP systolic 101–154; BP diastolic 58–90; PULSE 60–79; RESP 14–32; TEMP 35.9–37.1; O2SAT 92–100
[2024-07-10] MEDS: DOBUTamine drip 500 MG/250 ML PREMIX 18.45 MG IV (01:19)
[2024-07-10 04:38] LABS: Hematocrit 27.5 % (37-53); Lymphocytes # 0.1 10^3/uL (0.8-4.8); Lymphocytes % 1.5 %; Mean Corpuscular HGB Conc 32.7 g/dL (30-55); Mean Corpuscular Hemoglobin 33.8 pg (27-33); Mean Corpuscular Volume 103.4 fl (82-101); Mean Platelet Volume 10.1 fL (7.4-10.4); Monocytes # 0.7 10^3/uL (0.2-0.9); Monocytes % 7.8 %; Neutrophils # 8.23 10^3/uL (1.8-7.7); Neutrophils % 90.2 %; Nucleated Red Blood Cells % 0 %; Platelet Count 172 10^3/cmm (157-399); Red Blood Count 2.66 10^6/uL (3.85-5.65); White Blood Count 9.13 10^3/uL (3.29-11.43)
[2024-07-10 05:02] LABS: Magnesium 2.1 mg/dL (1.7-2.3)
[2024-07-10 05:05] LABS: Alanine Aminotransferase 26 U/L (0-41); Albumin Level 3.4 g/dL (3.5-5.2); Alkaline Phosphatase 171 U/L (40-130); Anion Gap 20.6 (5-19); Aspartate Amino Transferase 40 U/L (0-40); Blood Urea Nitrogen 58 mg/dL (8-23); Calcium 8.9 mg/dL (8.5-10.5); Carbon Dioxide 24 mmol/L (22-29); Chloride 94 mmol/L (98-107); Glucose 199 mg/dL (65-115); Osmolality Calculated 300 mOsm/kg (285-295); Potassium 4.6 mmol/L (3.5-5.1); Sodium 134 mmol/L (136-145); Total Bilirubin 0.7 mg/dL (0.15-1.2); Total Protein 6.4 g/dL (6.6-8.7)
[2024-07-10 05:07] LABS: Lactic Sepsis W/Reflex 1.3 mmol/L (0.5-2.2)
[2024-07-10 08:17] LABS: Glucose Point of Care 190 mg/dL (70-110)
[2024-07-10] MEDS: sennosides-docusate Tablet 1 TAB PO (09:11)
[2024-07-10] MEDS: b-complex-vitamin c Tablet 1 EACH PO (09:11)
[2024-07-10] MEDS: pantoprazole DR 40 mg Tablet PO (09:11)
[2024-07-10] MEDS: methylPREDNISolone sod succ 40 mg/mL INJ IVP (09:12)
[2024-07-10] MEDS: allopurinol 100 mg Tablet PO (09:12)
[2024-07-10] MEDS: levothyroxine 100 mcg SDV 50 MCG IVP (09:12)
[2024-07-10] MEDS: midodrine 5 mg TABLET 10 MG PO ×3 (09:12→21:00)
[2024-07-10] MEDS: duloxetine 60 mg Capsule PO (09:12)
[2024-07-10 12:22] LABS: Glucose Point of Care 253 mg/dL (70-110)
--- NOTE | 2024-07-10 13:02 | PM.PN ---
Subjective Subjective: No acute events overnight. Patient has remained on Bumex and dobutamine drip overnight with minimal urine output. Today morning seen sitting up in chair with at bedside. Mean artery pressure have maintained over 65. Denies any difficulty in breathing, remains on room air. Denies any chest pain. Vitals/I&O/Wt Last Vital Signs Temp 96.6 F L 07/10/24 07:30 Pulse 71 07/10/24 10:30 Resp 15 07/10/24 10:30 BP 132/80 07/10/24 10:30 Pulse Ox 95 07/10/24 10:30 O2 Del Method Room Air 07/10/24 10:30 O2 Flow Rate 0.5 07/08/24 09:29 07/09/24 07/10/24 07/10/24 22:59 06:59 14:59 Intake Total 480 / 1200 250 / 1450 581.807 / 581.807 Output Total 35 / 135 25 / 160 Balance 445 / 1065 225 / 1290 581.807 / 581.807 Weight last 48 hrs Weight 120.916 kg Weight 123.009 kg Weight 124.5 kg Physical Exam Narrative: General: AO x 3, chronically sick appearing HEENT: PERRLA, pupils bilaterally equal and reactive Chest: Bilateral bronchial breath sounds all over lung bray with occasional rhonchi decreased air entry bilateral lower zone, no monitor of oxygen supplementation CVS: S1-S2 irregularly irregular, pansystolic murmur at apex rating to anterior axillary line, pansystolic murmur at fourth intercostal space left retrosternal, no tachycardia, no gallops, no rubs Abdomen: Soft, nontender, no organomegaly, bowel sounds present Neuro: No focal deficits, no facial deformity, power 5/5 in all limbs Urinary Catheter Management: Vazquez: Cath Placed During This Visit: yes Reason for Continuing Indwelling Catheter: Accurate Measurement of Urinary Output in Critically Ill Patients Urinary Catheter Date of Insertion: 07/05/24 Urinary Catheter Time of Insertion: 18:58 Data 07/10/24 04:10 07/10/24 04:10 A&P Assessment and plan (1) Shock: Cardiogenic in nature. Ischemic cardiomyopathy with decompensated cardiogenic shock along with multiorgan dysfunction in setting of hepatocardiorenal syndrome with renal failure on hemodialysis. Patient not deemed a candidate for TIPS as well as LVAD as per [facility]. Blood pressures have maintained off pressors for now. Dobutamine drip discontinued as does not seem to be helping. Continue with oral midodrine 10 mg 3 times daily. Monitor urine output. Fluid restriction to less than 1500 cc. (2) Biventricular failure: (3) Cardiorenal syndrome with renal failure: Appreciate CMP. Appreciate nephrology recommendations. As per goals of care discussion family would want to continue with dialysis even if it means patient's blood pressure dropping. Monitor urine output. Stat dialysis as needed. Continue albumin as needed. (4) Multi-organ system dysfunction: Along with decompensated hepatic cirrhosis and acute renal failure requiring hemodialysis (5) Hyponatremia: Most likely in setting of congestive heart failure. Monitor BMP daily. (6) Hypoglycemia: Resolving. Stop Solu-Medrol. Continue with hypoglycemia protocol. If needed will add glucagon. Hypoglycemia protocol. (7) Ischemic cardiomyopathy: Last echocardiogram shows an EF of 20% with global LV hypokinesis, grade 4 diastolic dysfunction, possibility of subvalvular equal genic oscillating serpentine structure which could be chordae tendineae versus possible vegetation near mitral valve, bioprosthetic aortic valve. Continue with home dose of aspirin (8) Goals of care, counseling/discussion: Had a detailed goals of care discussion with the patient and patient's at bedside. We discussed unfortunately patient has decompensated cardiogenic shock with signs of multiorgan dysfunction and he has not been deemed a candidate for LVAD or TIPS procedure. Discussed that unfortunately currently he is dependent on Levophed and dobutamine drip which is not working well for him as well as he remains an uric with worsening of renal function requiring hemodialysis. As per family and patient quality of life is more important than quantity of life and they would not want to live like this. Discussed about possible comfort measures. would consider hospice but would want more details before making a decision. Case management alerted. Discussed about CODE STATUS. Patient and would want to change the CODE STATUS to DNR/DNI. 07/10: Had further goals of care discussion with both patient and at bedside. We discussed that unfortunately dobutamine drip is not helping again hence we will go ahead and discontinue dobutamine drip and Bumex. She verbalized understanding and is agreeable. Discussed the unfortunate situation in which patient has decompensated cardiogenic shock with multiorgan dysfunction and has been deemed not a candidate for LVAD or TIPS procedure. We discussed unfortunately at this time we have exhausted all the medical and surgical options. Discussed options going forward would be to continue dialysis intermittently if and when needed for quality of life though that can mean recurrent hypotension and recurrent admissions or even versus transition to hospice. states she has spoken to multiple children and patient's brother and they want to continue doing everything they can to prolong his life. Patient is agreeable. Wants to change CODE STATUS to full code. For now we will try to set up outpatient dialysis as possible. No hospice for now. CODE STATUS changed to full code. Will hold off on using dobutamine drip as it does not seem to be helping and patient remains oliguric on the medication. Continue with oral midodrine. (9) Hemoperitoneum: (10) Hypothyroidism: Continue with IV levothyroxine. Recheck thyroid profile in AM. (11) CAD (coronary artery disease): Qualifiers: Coronary Disease-Associated Artery/Lesion type: [place] artery [place] vs. transplanted heart: [place] heart Associated angina: without angina Qualified Code(s): I25.10 - Atherosclerotic heart disease of [place] coronary artery without angina pectoris (12) Chronic systolic (congestive) heart failure: (13) H/O aortic root repair: (14) Chronic anticoagulation: (15) Diabetes: (16) Liver cirrhosis: (17) Decompensated hepatic cirrhosis: (18) ICD (implantable cardioverter-defibrillator) in place: Plan Plan for the day: Blood sugars have remained stable. Stop Solu-Medrol. Continue with midodrine 10 mg 3 times daily. Monitor blood pressures. Target mean artery pressure over 65. As per goals of care discussion family would want to continue with dialysis if and when needed. Will discuss further with nephrology. Will discuss with case management and trying to get chair time as an outpatient. Discussed with the patient and family that unfortunately with all of this he would need home health to monitor blood work or we can try to do blood work at the dialysis center. Case management working on both. Oxygen supplementation keeping saturation over 90%. Continue with levothyroxine 50 mcg daily. Recheck thyroid profile in AM. Keep potassium around 4 magnesium over 2. Hold off on diuretics for now as this does not seem to be helping and patient has remained oliguric on Bumex drip. Occupational Therapy. PT evaluation. Transfer to [facility]. Analgesia: Morphine 2 mg every 4 hours as needed Glycemic control: Hypoglycemia protocol Nutrition: Cardiac diet CODE STATUS: Changed to DNR/DNI PUD prophylaxis: Protonix DVT prophylaxis: Not on anticoagulation given concerns for recent hemoperitoneum. Eliquis on hold. Discharge planning: Patient's wants to go home with hospice. Case management alerted. Continue with care at ICU This documentation was created by [employer] cutter hot knife software. Every effort was made to ensure accuracy of cutter hot knife. Any obvious errors or omissions should be clarified with the author of the document. Attestations Medical Necessity Statement*: Requires further hospitalization for management of decompensated cardiogenic shock with multiorgan dysfunction in a patient with ischemic cardiomyopathy, acute kidney injury on hemodialysis as multiple goals of care discussions are done and outpatient dialysis is set up in a patient who has been deemed not a candidate for LVAD or TIPS procedure Diagnoses Shock R57.9 Biventricular failure I50.82 Cardiorenal syndrome with renal failure I13.10 Multi-organ system dysfunction Hyponatremia E87.1 Hypoglycemia E16.2 Ischemic cardiomyopathy I25.5 Goals of care, counseling/discussion Z71.89 Hemoperitoneum K66.1 Hypothyroidism E03.9 Coronary artery disease involving [place] coronary artery of [place] heart without angina pectoris I25.10 Coronary Disease-Associated Artery/Lesion type: [place] artery [place] vs. transplanted heart: [place] heart Associated angina: without angina Chronic systolic (congestive) heart failure I50.22 H/O aortic root repair Z98.890 Chronic anticoagulation Z79.01 Diabetes E11.9 Liver cirrhosis K74.60 Decompensated hepatic cirrhosis K72.90; K74.60 ICD (implantable cardioverter-defibrillator) in place Z95.810
--- NOTE | 2024-07-10 14:35 | PC.SOCIAL ---
IMM Update pg 2 of IMM updated and reviewed w/ patient. Copy provided and copy dated, initialed and placed in chart.
--- NOTE | 2024-07-10 15:11 | PC.NURSE ---
Report called to [facility]. Report for bed 102 given to FAYE Connor.
--- NOTE | 2024-07-10 15:55 | PC.NURSE ---
Pt transferred to Room 102 via . All belongings with pt. Friend gathered cell phone and glasses. entered room after pt settled. Further updates given to FAYE Connor
[2024-07-10 16:44] LABS: Glucose Point of Care 215 mg/dL (70-110)
--- NOTE | 2024-07-10 16:59 | P.PN_ITS ---
Subjective 2 Subjective: Patient had a total of 25 cc of urine output since restarted the dobutamine/Bumex infusion 24 hours ago. Telemetry shows sinus rhythm with frequent PVCs.. No chest pain. No new symptoms. Medications: Medication Review Details: Current Medications Acetaminophen (Acetaminophen 500 Mg Tablet) 500 mg PO Q4H PRN PRN Reason: fever Last Admin: 07/04/24 19:28 Dose: 500 mg Albuterol/Ipratropium (Ipratropium-Albuterol 3 Ml Neb) 3 ml INHALATION Q6H PRN PRN Reason: SHORTNESS OF BREATH Allopurinol (Allopurinol 100 Mg Tablet) 100 mg PO DAILY [facility] Last Admin: 07/10/24 09:12 Dose: 100 mg Apixaban (Apixaban 5 Mg Tablet) 5 mg PO BID@0800,1999 [facility] Last Admin: 07/05/24 08:53 Dose: 5 mg Aspirin (Aspirin 81 Mg Ec Tablet) 81 mg PO DAILY [facility] Calcium Carbonate (Calcium Carbonate 500 Mg Chew Tablet) 500 mg PO Q4H PRN PRN Reason: INDIGESTION Last Admin: 07/09/24 18:20 Dose: 500 mg Duloxetine HCl (Duloxetine 60 Mg Capsule) 60 mg PO DAILY [facility] Last Admin: 07/10/24 09:12 Dose: 60 mg Ergocalciferol (Ergocalciferol (Vitamin D2) 50,000 Unit Capsule) 50,000 unit PO Q7D [facility] Last Admin: 07/06/24 09:33 Dose: 50,000 unit Glucagon (Glucagon 1 Mg/Ml Kit 1 Ml) 1 mg IM ONCE PRN; Protocol PRN Reason: Adult Acute Hypoglycemia Nursing Prot. Dextrose (D5w) 500 mls @ 0 mls/hr IV ONCE PRN; Protocol PRN Reason: Adult Acute Hypoglycemia Prot Dextrose (D10w) 125 mls @ 750 mls/hr IV PRN PRN; Protocol PRN Reason: Adult Acute Hypoglycemia Nursing Protocol Dextrose (D10w) 250 mls @ 1,000 mls/hr IV PRN PRN; Protocol PRN Reason: Adult Acute Hypoglycemia Nursing Protocol Levothyroxine Sodium (Levothyroxine 100 Mcg Sdv) 50 mcg IVP DAILY [facility] Last Admin: 07/10/24 09:12 Dose: 50 mcg Midodrine (Midodrine 5 Mg Tablet) 10 mg PO TID [facility] Last Admin: 07/10/24 15:01 Dose: 10 mg Morphine Sulfate (Morphine 4 Mg/Ml Sdv 1 Ml) 2 mg IVP Q4H PRN PRN Reason: SEVERE PAIN Last Admin: 07/06/24 20:34 Dose: 2 mg Multivitamins (Y-Kqlxgrr-Rlvmfuk C Tablet) 1 each PO DAILY [facility] Last Admin: 07/10/24 09:11 Dose: 1 each Ondansetron HCl (Ondansetron 2 Mg/Ml Sdv 2 Ml) 4 mg IVP Q6H PRN PRN Reason: NAUSEA AND VOMITING Pantoprazole Sodium (Pantoprazole Dr 40 Mg Tablet) 40 mg PO DAILY [facility] Last Admin: 07/10/24 09:11 Dose: 40 mg Senna/Docusate Sodium (Sennosides-Docusate Tablet) 1 tab PO DAILY [facility] Last Admin: 07/10/24 09:11 Dose: 1 tab Tamsulosin HCl (Tamsulosin 0.4 Mg Capsule) 0.4 mg PO QPM [facility] Last Admin: 07/09/24 18:21 Dose: 0.4 mg Vitals/I&O/Wt Last Vital Signs Temp 96.8 F L 07/10/24 14:00 Pulse 71 07/10/24 15:00 Resp 16 07/10/24 15:00 BP 127/75 07/10/24 15:00 Pulse Ox 97 07/10/24 15:00 O2 Del Method Room Air 07/10/24 15:00 O2 Flow Rate 0.5 07/08/24 09:29 07/10/24 07/10/24 07/10/24 06:59 14:59 22:59 Intake Total 250 / 1450 831.807 / 831.807 Output Total 25 / 160 Balance 225 / 1290 831.807 / 831.807 Weight last 48 hrs Weight 266 lb 9.2 oz Weight 271 lb 3 oz Weight 274 lb 7.608 oz Physical Exam 2 Narrative: GENERAL: The patient is alert and oriented times three. Not in any acute distress. Chronically ill looking. HEENT: Moderate pallor, no icterus or lymphadenopathy.Oral cavity: There are no mucous membrane lesions. NECK: Trachea appears to be central. No masses noted. No JVD or thyromegaly appreciated. RESPIRATORY: Chest is symmetrical. No intercostals muscle retraction or any accessory muscle activation. There is no chest wall tenderness. The breath sounds are diminished in the bases. Dependent edema on the posterior aspect of the lower chest. BREASTS: Deferred. HEART: The aortic valve opening and closing sounds are normal. Variable intensity. Systolic murmur grade 3 or 6 in the mitral area. No diastolic murmurs. ABDOMEN: Markedly distended. Normal bowel sounds : Deferred. RECTAL: Deferred. LYMPHATIC: No lymphadenopathy noted in the neck. EXTREMITIES: 3+ edema both lower extremities. No cyanosis. MUSCULOSKELETAL: No acute joint deformities or swelling SKIN: There are no significant rashes or ecchymosis NEUROPSYCHIATRIC: The patient is alert and oriented x3. Pleasant but ill looking. No focal motor deficits. Urinary Catheter Management: Vazquez: Cath Placed During This Visit: yes Reason for Continuing Indwelling Catheter: Accurate Measurement of Urinary Output in Critically Ill Patients Urinary Catheter Date of Insertion: 07/05/24 Urinary Catheter Time of Insertion: 18:58 Data 07/10/24 04:10 07/10/24 04:10 Other Labs: Laboratory Last Values WBC 9.13 10^3/uL (3.29-11.43) 07/10/24 04:10 RBC 2.66 10^6/uL (3.85-5.65) L 07/10/24 04:10 Hgb 9.00 g/dL (11.27-16.99) L 07/10/24 04:10 Hct 27.5 % (37-53) L 07/10/24 04:10 MCV 103.4 fl (82-101) H 07/10/24 04:10 MCH 33.8 pg (27-33) H 07/10/24 04:10 MCHC 32.7 g/dL (30-55) 07/10/24 04:10 RDW 23.0 % (12.1-15.1) H 07/10/24 04:10 Plt Count 172 10^3/cmm (157-399) 07/10/24 04:10 MPV 10.1 fL (7.4-10.4) 07/10/24 04:10 Neut % (Auto) 90.2 % 07/10/24 04:10 Lymph % (Auto) 1.5 % 07/10/24 04:10 Early % (Auto) 7.8 % 07/10/24 04:10 Eos % (Auto) 0.0 % 07/10/24 04:10 Baso % (Auto) 0.0 % 07/10/24 04:10 Neut # (Auto) 8.23 10^3/uL (1.8-7.7) H 07/10/24 04:10 Lymph # (Auto) 0.1 10^3/uL (0.8-4.8) L 07/10/24 04:10 Early # (Auto) 0.7 10^3/uL (0.2-0.9) 07/10/24 04:10 Eos # (Auto) 0.0 10^3/uL (0.0-0.8) 07/10/24 04:10 Baso # (Auto) 0.0 10^3/uL (0.0-0.1) 07/10/24 04:10 Nucleated RBC % (auto) 0 % 07/10/24 04:10 Nucleated RBCs # 0.0 /100WBC 07/10/24 04:10 PT 16.60 SECONDS (12.1-14.9) H 07/06/24 02:47 INR 1.29 (0.8-1.2) H 07/06/24 02:47 Sodium 134 mmol/L (136-145) L 07/10/24 04:10 Potassium 4.6 mmol/L (3.5-5.1) 07/10/24 04:10 Chloride 94 mmol/L (98-107) L 07/10/24 04:10 Carbon Dioxide 24 mmol/L (22-29) 07/10/24 04:10 Anion Gap 20.6 (5-19) H 07/10/24 04:10 BUN 58 mg/dL (8-23) H 07/10/24 04:10 Creatinine 2.9 mg/dL (0.7-1.2) H 07/10/24 04:10 GFR Calculation Not Reportable 07/10/24 04:10 Glucose 199 mg/dL (65-115) H 07/10/24 04:10 POC Glucose 215 mg/dL (70-110) H 07/10/24 15:56 Estimat Average Glucose 97 07/08/24 03:33 Hemoglobin A1c 5.0 % (4.0-6.0) 07/08/24 03:33 Calculated Osmolality 300 mOsm/kg (285-295) H 07/10/24 04:10 Lactic Acid 1.3 mmol/L (0.5-2.2) 07/10/24 04:10 Calcium 8.9 mg/dL (8.5-10.5) 07/10/24 04:10 Magnesium 2.1 mg/dL (1.7-2.3) 07/10/24 04:10 Iron 24 ug/dL (59-158) L 07/08/24 03:33 TIBC 199 mcg/dl 07/08/24 03:33 % Saturation 12.0 % (20-50) L 07/08/24 03:33 Unsat Iron Binding 175 ug/dL (112-347) 07/08/24 03:33 Total Bilirubin 0.7 mg/dL (0.15-1.2) 07/10/24 04:10 AST 40 U/L (0-40) 07/10/24 04:10 ALT 26 U/L (0-41) 07/10/24 04:10 Alkaline Phosphatase 171 U/L (40-130) H 07/10/24 04:10 Total Protein 6.4 g/dL (6.6-8.7) L 07/10/24 04:10 Albumin 3.4 g/dL (3.5-5.2) L 07/10/24 04:10 Globulin 3.0 g/dL (1.3-4.6) 07/10/24 04:10 Vitamin B12 1051 pg/mL (232-1245) 07/08/24 03:33 25-OH Vitamin D Total 10 ng/mL (30-100) L 07/06/24 02:47 Folate 7.5 ng/mL (4.5-32.2) 07/09/24 04:37 Procalcitonin 0.39 ng/mL (0-0.5) 07/08/24 03:33 TSH 18.02 uIU/mL (0.27-4.20) H 07/08/24 03:33 Free T4 0.80 ng/dL (0.82-1.77) L 07/08/24 03:33 Free T3 1.2 PG/ML (2.0-4.4) L 07/08/24 03:33 PTH Intact 177.1 pg/mL (15-65) H 07/06/24 02:47 Calcium (PTH Intact) 8.7 mg/dL (8.5-10.5) 07/06/24 02:47 Random Cortisol 22.67 ug/dL (2.47-19.5) H 07/06/24 02:47 ABHIJEET Screen Negative (NEGATIVE) 07/05/24 04:02 Hep Bs Antigen Non-reactive (Nonreactive) 07/05/24 17:54 Hep Bs Antibody < 3.5 (11.5-1000) L 07/05/24 17:54 Hepatitis C Antibody Non-reactive (Nonreactive) 07/05/24 17:54 A&P Assessment and plan (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 Apparently has no response to IV dobutamine infusion/Bumex infusion. At this point, it would be appropriate to discontinue this medication. Patient seems to have more PVCs with the medication. (2) Ischemic cardiomyopathy: Patient is LV ejection fraction of 25 to 30%. Apparently the patient could not tolerate Entresto/hydralazine. (3) Atherosclerotic heart disease of [place] coronary artery without angina pectoris: Seems to be stable with no chest pain. Qualifiers: [place] vs. transplanted heart: [place] heart Qualified Code(s): I25.10 - Atherosclerotic heart disease of [place] coronary artery without angina pectoris (4) Hx of aortic valve replacement: Valve function appears to be appropriate. (5) Decompensated hepatic cirrhosis: Continue the current management. Found to be not a candidate for TIPS. (6) Ascites: Consider paracentesis for symptom relief. Qualifiers: Ascites type: other type Qualified Code(s): R18.8 - Other ascites (7) Microcytic anemia: Hemoglobin seems to be stable. (8) ICD (implantable cardioverter-defibrillator) in place: Found to be functioning okay. Continue on the current management. (9) Atrial fibrillation: Patient is mostly in the paced rhythm Qualifiers: Atrial fibrillation type: permanent Qualified Code(s): I48.21 - Permanent atrial fibrillation (10) Bilateral carotid artery stenosis: Stable with no specific symptoms. Plan Patient and the family is considering hospice care Continue on the conservative measures Attestations 2 Medical Necessity Statement*: Deferred to the primary Coding Level of Care Code 12972 Diagnoses Biventricular failure I50.82 Ischemic cardiomyopathy I25.5 Atherosclerosis of [place] coronary artery of [place] heart without angina pectoris I25.10 [place] vs. transplanted heart: [place] heart Hx of aortic valve replacement Z95.2 Decompensated hepatic cirrhosis K72.90; K74.60 Other ascites R18.8 Ascites type: other type Microcytic anemia D50.9 ICD (implantable cardioverter-defibrillator) in place Z95.810 Permanent atrial fibrillation I48.21 Atrial fibrillation type: permanent Bilateral carotid artery stenosis I65.23
[2024-07-10] MEDS: tamsulosin 0.4 mg Capsule PO (17:38)
--- NOTE | 2024-07-10 19:37 | P.PN_ITS ---
Subjective 2 Subjective: no new complaints off O2 Medications: Reviewed: Yes Vitals/I&O/Wt Last Vital Signs Temp 96.8 F L 07/10/24 14:00 Pulse 72 07/10/24 18:00 Resp 16 07/10/24 18:00 BP 154/79 07/10/24 18:00 Pulse Ox 97 07/10/24 18:00 O2 Del Method Room Air 07/10/24 15:00 O2 Flow Rate 0.5 07/08/24 09:29 07/10/24 07/10/24 07/10/24 06:59 14:59 22:59 Intake Total 250 / 1570 831.807 / 831.807 Output Total 25 / 410 Balance 225 / 1160 831.807 / 831.807 Weight last 48 hrs Weight 120.916 kg Weight 123.009 kg Weight 124.5 kg Physical Exam 2 Narrative: more awake,, talking, responsive HEENT normocephalic atraumatic neck is supple lungs have improved air mvoement Heart irregular with systolic murmurs. Abdomen distended positive bowel sounds positive ascites. Extremities have bilateral edema 2+. Neuro -more awake and verbal, still confused Dialysis access right IJ permacath. 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 Cardiac cirrhosis increased pulmonary hypertension, acute on chronic renal failure, hypothyroidism, gout, diabetes, A-fib. 1. Heart failure acute on chronic systolic and diastolic patient has a EF of 25 to 30% not able to tolerate Entresto. The patient has an ICD patient is currently in A-fib. 2. Acute on chronic renal failure likely from hypotension, cardiac disease and secondary liver disease. - likely he has hemodynamically mediated diseases with cardio hepatorenal syndrome. Patient attempted dialysis in the past and had difficulty. -renal ultrasound -reveals ascites, no hydronephrosis -Status post hemodialysis monday , Not a intermediate HD candidate , discussed possible palliative care / conservative measures but pt and wishes to proceed with hD at this time . -will do hd 2 times / week for now , likely wont tolerate out pt HD 3. Anemia hemoglobin is stable. Platelets relatively stable 4. Leukocytosis. Monitor for infection. 5. Hyponatremia likely from renal failure liver failure and heart failure. Slightly improved with dialysis 6. Diabetic control-patient has hypoglycemia. Can decrease insulin dose. Medications reviewed. The patient was seen and examined using audiovisual equipment with the aid of a nurse. Who examined the patient. The patient and his consent to hemodialysis and to telehealth. Unfortunately very poor prognosis. Plan See above Attestations 2 Medical Necessity Statement*: per angelina Coding Level of Care Code Acute Code for Chg Fwd Diagnoses Acute kidney injury superimposed on CKD N17.9; N18.9
[2024-07-11] VITALS (11 sets, daily range): BP systolic 110–148; BP diastolic 59–89; PULSE 70–75; RESP 12–21; TEMP 36.6–36.9; O2SAT 95–98
[2024-07-11 04:59] LABS: Eosinophils % 0.1 %; Hematocrit 28.4 % (37-53); Lymphocytes # 0.2 10^3/uL (0.8-4.8); Lymphocytes % 2.1 %; Mean Corpuscular HGB Conc 32.4 g/dL (30-55); Mean Corpuscular Hemoglobin 33.3 pg (27-33); Mean Corpuscular Volume 102.9 fl (82-101); Mean Platelet Volume 9.3 fL (7.4-10.4); Monocytes # 0.6 10^3/uL (0.2-0.9); Monocytes % 6.6 %; Neutrophils # 8.42 10^3/uL (1.8-7.7); Neutrophils % 90.2 %; Nucleated Red Blood Cells % 0 %; Platelet Count 184 10^3/cmm (157-399); Red Blood Count 2.76 10^6/uL (3.85-5.65); Red Cell Distribution Width 22.4 % (12.1-15.1); White Blood Count 9.34 10^3/uL (3.29-11.43)
[2024-07-11 05:24] LABS: Alanine Aminotransferase 26 U/L (0-41); Albumin Level 3.5 g/dL (3.5-5.2); Alkaline Phosphatase 165 U/L (40-130); Anion Gap 20.3 (5-19); Aspartate Amino Transferase 28 U/L (0-40); Blood Urea Nitrogen 62 mg/dL (8-23); Calcium 9.1 mg/dL (8.5-10.5); Carbon Dioxide 26 mmol/L (22-29); Chloride 91 mmol/L (98-107); Creatinine Clr Calc Pharmacy 28.6542; Globulin 2.9 g/dL (1.3-4.6); Glucose 164 mg/dL (65-115); Osmolality Calculated 297 mOsm/kg (285-295); Potassium 4.3 mmol/L (3.5-5.1); Sodium 133 mmol/L (136-145); Total Bilirubin 0.7 mg/dL (0.15-1.2); Total Protein 6.4 g/dL (6.6-8.7)
[2024-07-11 05:27] LABS: Free T4 Free Thyroxine 0.83 ng/dL (0.82-1.77); Magnesium 2.1 mg/dL (1.7-2.3); Thyroid Stimulating Hormone 9.76 uIU/mL (0.27-4.20)
[2024-07-11 06:36] LABS: Glucose Point of Care 180 mg/dL (70-110)
[2024-07-11] MEDS: b-complex-vitamin c Tablet 1 EACH PO (07:51)
[2024-07-11] MEDS: allopurinol 100 mg Tablet PO (07:52)
[2024-07-11] MEDS: midodrine 5 mg TABLET 10 MG PO ×3 (07:52→20:36)
[2024-07-11] MEDS: sennosides-docusate Tablet 1 TAB PO (07:52)
[2024-07-11] MEDS: duloxetine 60 mg Capsule PO (07:52)
[2024-07-11] MEDS: pantoprazole DR 40 mg Tablet PO (07:53)
[2024-07-11] MEDS: levothyroxine 100 mcg SDV 50 MCG IVP (07:53)
[2024-07-11] MEDS: aspirin 81 mg EC Tablet PO (07:53)
[2024-07-11] MEDS: albumin 12.5 GM/50 ML VIAL IV (12:10)
--- NOTE | 2024-07-11 12:21 | PC.NURSE ---
pt still in hemodialysis unit for his dialysis.
[2024-07-11 12:32] LABS: Glucose Point of Care 166 mg/dL (70-110)
--- NOTE | 2024-07-11 13:41 | PM.PN ---
Subjective Subjective: no new c/o Medications: Reviewed: Yes Vitals/I&O/Wt Last Vital Signs Temp 98.0 F 07/11/24 07:13 Pulse 73 07/11/24 08:26 Resp 16 07/11/24 08:26 BP 144/85 07/11/24 07:13 Pulse Ox 96 07/11/24 08:26 O2 Del Method Room Air 07/11/24 08:26 O2 Flow Rate 0.5 07/08/24 09:29 07/10/24 07/11/24 07/11/24 22:59 06:59 14:59 Intake Total 200 / 1031.807 360 / 360 Output Total 100 / 100 300 / 400 Balance 100 / 931.807 -300 / 631.807 360 / 360 Weight last 48 hrs Weight 122.8 kg Weight 120.916 kg Physical Exam Narrative: more awake,, talking, responsive HEENT normocephalic atraumatic neck is supple lungs have improved air mvoement Heart irregular with systolic murmurs. Abdomen distended positive bowel sounds positive ascites. Extremities have bilateral edema 2+. Neuro -more awake and verbal, still confused Dialysis access right IJ permacath. 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 Cardiac cirrhosis increased pulmonary hypertension, acute on chronic renal failure, hypothyroidism, gout, diabetes, A-fib. 1. Heart failure acute on chronic systolic and diastolic patient has a EF of 25 to 30% not able to tolerate Entresto. The patient has an ICD patient is currently in A-fib. 2. Acute on chronic renal failure likely from hypotension, cardiac disease and secondary liver disease. - likely he has hemodynamically mediated diseases with cardio hepatorenal syndrome. Patient attempted dialysis in the past and had difficulty. -renal ultrasound -reveals ascites, no hydronephrosis -Status post hemodialysis monday , Not a commodity management specialist HD candidate , discussed possible palliative care / conservative measures but pt and wishes to proceed with hD at this time . -will do hd 2 times / week for now , likely wont tolerate out pt HD -HD today 3. Anemia hemoglobin is stable. Platelets relatively stable 4. Leukocytosis. Monitor for infection. 5. Hyponatremia likely from renal failure liver failure and heart failure. Slightly improved with dialysis 6. Diabetic control-patient has hypoglycemia. Can decrease insulin dose. Medications reviewed. The patient was seen and examined using audiovisual equipment with the aid of a nurse. Who examined the patient. The patient and his consent to hemodialysis and to telehealth. Unfortunately very poor prognosis. Plan See above Attestations Medical Necessity Statement*: per angelina Coding Level of Care Code Acute Code for Chg Fwd Diagnoses Acute kidney injury superimposed on CKD N17.9; N18.9
--- NOTE | 2024-07-11 15:08 | P.PN_ITS ---
Subjective 2 Subjective: No acute events overnight. Today morning patient seen sitting in recliner. States he has been overnight as he could not sleep. Denies any complaints though. Denies any difficulty in breathing or chest pain. Hemodynamically has remained stable. Remains on room air. Vitals/I&O/Wt Last Vital Signs Temp 98.0 F 07/11/24 07:13 Pulse 73 07/11/24 08:26 Resp 16 07/11/24 08:26 BP 144/85 07/11/24 07:13 Pulse Ox 96 07/11/24 08:26 O2 Del Method Room Air 07/11/24 08:26 O2 Flow Rate 0.5 07/08/24 09:29 07/11/24 07/11/24 07/11/24 06:59 14:59 22:59 Intake Total 360 / 360 Output Total 300 / 400 Balance -300 / 631.807 360 / 360 Weight last 48 hrs Weight 122.8 kg Weight 120.916 kg Physical Exam 2 Narrative: General: AO x 3, chronically sick appearing HEENT: PERRLA, pupils bilaterally equal and reactive Chest: Bilateral bronchial breath sounds all over lung bray with occasional rhonchi decreased air entry bilateral lower zone, no monitor of oxygen supplementation CVS: S1-S2 irregularly irregular, pansystolic murmur at apex rating to anterior axillary line, pansystolic murmur at fourth intercostal space left retrosternal, no tachycardia, no gallops, no rubs Abdomen: Soft, nontender, no organomegaly, bowel sounds present Neuro: No focal deficits, no facial deformity, power 5/5 in all limbs Urinary Catheter Management: Vazquez: Cath Placed During This Visit: yes Reason for Continuing Indwelling Catheter: Accurate Measurement of Urinary Output in Critically Ill Patients Urinary Catheter Date of Insertion: 07/05/24 Urinary Catheter Time of Insertion: 18:58 Data 07/11/24 04:44 07/11/24 04:44 A&P Assessment and plan (1) Shock: Cardiogenic in nature. Ischemic cardiomyopathy with decompensated cardiogenic shock along with multiorgan dysfunction in setting of hepatocardiorenal syndrome with renal failure on hemodialysis. Patient not deemed a candidate for TIPS as well as LVAD as per [facility]. Blood pressures have maintained off pressors for now. Dobutamine drip discontinued as does not seem to be helping. Continue with oral midodrine 10 mg 3 times daily. Monitor urine output. Fluid restriction to less than 1500 cc. (2) Biventricular failure: (3) Cardiorenal syndrome with renal failure: Appreciate CMP. Appreciate nephrology recommendations. As per nephrology patient would most likely not tolerate outpatient hemodialysis. As per goals of care discussion family would want to continue with dialysis even if it means patient's blood pressure dropping. Monitor urine output. Continue with dialysis as needed. (4) Multi-organ system dysfunction: Along with decompensated hepatic cirrhosis and acute renal failure requiring hemodialysis (5) Hyponatremia: Most likely in setting of congestive heart failure. Monitor BMP daily. (6) Hypoglycemia: Blood sugars have remained stable. Continue to hold off on Solu-Medrol. Continue with hypoglycemia protocol. If needed will add glucagon. Hypoglycemia protocol. (7) Ischemic cardiomyopathy: Last echocardiogram shows an EF of 20% with global LV hypokinesis, grade 4 diastolic dysfunction, possibility of subvalvular equal genic oscillating serpentine structure which could be chordae tendineae versus possible vegetation near mitral valve, bioprosthetic aortic valve. Continue with home dose of aspirin (8) Goals of care, counseling/discussion: Had a detailed goals of care discussion with the patient and patient's at bedside. We discussed unfortunately patient has decompensated cardiogenic shock with signs of multiorgan dysfunction and he has not been deemed a candidate for LVAD or TIPS procedure. Discussed that unfortunately currently he is dependent on Levophed and dobutamine drip which is not working well for him as well as he remains an uric with worsening of renal function requiring hemodialysis. As per family and patient quality of life is more important than quantity of life and they would not want to live like this. Discussed about possible comfort measures. would consider hospice but would want more details before making a decision. Case management alerted. Discussed about CODE STATUS. Patient and would want to change the CODE STATUS to DNR/DNI. 07/10: Had further goals of care discussion with both patient and at bedside. We discussed that unfortunately dobutamine drip is not helping again hence we will go ahead and discontinue dobutamine drip and Bumex. She verbalized understanding and is agreeable. Discussed the unfortunate situation in which patient has decompensated cardiogenic shock with multiorgan dysfunction and has been deemed not a candidate for LVAD or TIPS procedure. We discussed unfortunately at this time we have exhausted all the medical and surgical options. Discussed options going forward would be to continue dialysis intermittently if and when needed for quality of life though that can mean recurrent hypotension and recurrent admissions or even versus transition to hospice. states she has spoken to multiple children and patient's brother and they want to continue doing everything they can to prolong his life. Patient is agreeable. Wants to change CODE STATUS to full code. For now we will try to set up outpatient dialysis as possible. No hospice for now. CODE STATUS changed to full code. Will hold off on using dobutamine drip as it does not seem to be helping and patient remains oliguric on the medication. Continue with oral midodrine. 07/11: As per request of patient and family outpatient hemodialysis is been trying to worked up. Patient has been declined by [facility] as they deem him to be unstable for outpatient hemodialysis. Family wants patient to have possible dialysis at [place]. Also requesting to see he can transfer to LTAC. We did discuss most likely patient is not a candidate for LTAC as he does not have any acute condition rather he has chronic problems for which he needs outpatient possible solution versus hospice. Discussed that we will try at dialysis center at [place] as well. (9) Hemoperitoneum: (10) Hypothyroidism: Continue with IV levothyroxine. Recheck thyroid profile in AM. (11) CAD (coronary artery disease): Qualifiers: Coronary Disease-Associated Artery/Lesion type: [place] artery [place] vs. transplanted heart: [place] heart Associated angina: without angina Qualified Code(s): I25.10 - Atherosclerotic heart disease of [place] coronary artery without angina pectoris (12) Chronic systolic (congestive) heart failure: (13) H/O aortic root repair: (14) Chronic anticoagulation: (15) Diabetes: (16) Liver cirrhosis: (17) Decompensated hepatic cirrhosis: (18) ICD (implantable cardioverter-defibrillator) in place: Plan Plan for the day: Plan for the predialysis today. Will try to dialysis without albumin as starts outpatient would need dialysis going forward as an outpatient. Though during dialysis patient had severe hypotension with systolic blood pressure dropping down to 60 requiring 2 of albumin and patient to be laid in Trendelenburg position. Family wants to continue to try outpatient dialysis even though has been declined by dialysis center as he has been deemed unstable. Case management to try at dialysis center at [place] as per family's request. Further goals of care discussion was done regarding severely poor prognosis with no unfortunately no treatment for his cardiogenic shock with multiorgan dysfunction as patient has deemed not to be a candidate for LVAD or TIPS with patient being dependent on hemodialysis which she is not able to tolerate because of low blood pressures. Patient has failed dobutamine and Bumex therapy and remains oliguric. Appreciate thyroid profile. Continue with IV levothyroxine for now. Will plan to transition over to oral levothyroxine in next 48 hours after rechecking thyroid profile. Continue with midodrine 10 mg 3 times daily. Monitor electrolytes. Occupational Therapy. PT evaluation. Analgesia: Morphine 2 mg every 4 hours as needed Glycemic control: Hypoglycemia protocol Nutrition: Cardiac diet CODE STATUS: CODE STATUS changed back to full code by patient on 07/10. PUD prophylaxis: Protonix DVT prophylaxis: Not on anticoagulation given concerns for recent hemoperitoneum. Eliquis on hold. Discharge planning: Patient's wants to go home with hospice. Case management alerted. Severely guarded prognosis This documentation was created by [employer] gang investigator software. Every effort was made to ensure accuracy of gang investigator. Any obvious errors or omissions should be clarified with the author of the document. Attestations 2 Medical Necessity Statement*: Requires further hospitalization for management of cardiogenic shock with multiorgan dysfunction, acute kidney injury requiring hemodialysis as outpatient hemodialysis is being tried to set up versus further goals of care discussion given severely poor prognosis Diagnoses Shock R57.9 Biventricular failure I50.82 Cardiorenal syndrome with renal failure I13.10 Multi-organ system dysfunction Hyponatremia E87.1 Hypoglycemia E16.2 Ischemic cardiomyopathy I25.5 Goals of care, counseling/discussion Z71.89 Hemoperitoneum K66.1 Hypothyroidism E03.9 Coronary artery disease involving [place] coronary artery of [place] heart without angina pectoris I25.10 Coronary Disease-Associated Artery/Lesion type: [place] artery [place] vs. transplanted heart: [place] heart Associated angina: without angina Chronic systolic (congestive) heart failure I50.22 H/O aortic root repair Z98.890 Chronic anticoagulation Z79.01 Diabetes E11.9 Liver cirrhosis K74.60 Decompensated hepatic cirrhosis K72.90; K74.60 ICD (implantable cardioverter-defibrillator) in place Z95.810
[2024-07-11 18:36] LABS: Glucose Point of Care 226 mg/dL (70-110)
[2024-07-11] MEDS: tamsulosin 0.4 mg Capsule PO (18:43)
--- NOTE | 2024-07-11 21:46 | PM.PN ---
Subjective Medications: Medication Review Details: Current Medications Acetaminophen (Acetaminophen 500 Mg Tablet) 500 mg PO Q4H PRN PRN Reason: fever Last Admin: 07/04/24 19:28 Dose: 500 mg Albuterol/Ipratropium (Ipratropium-Albuterol 3 Ml Neb) 3 ml INHALATION Q6H PRN PRN Reason: SHORTNESS OF BREATH Allopurinol (Allopurinol 100 Mg Tablet) 100 mg PO DAILY [facility] Last Admin: 07/11/24 07:52 Dose: 100 mg Apixaban (Apixaban 5 Mg Tablet) 5 mg PO BID@0800,1999 [facility] Last Admin: 07/05/24 08:53 Dose: 5 mg Aspirin (Aspirin 81 Mg Ec Tablet) 81 mg PO DAILY [facility] Last Admin: 07/11/24 07:53 Dose: 81 mg Calcium Carbonate (Calcium Carbonate 500 Mg Chew Tablet) 500 mg PO Q4H PRN PRN Reason: INDIGESTION Last Admin: 07/09/24 18:20 Dose: 500 mg Duloxetine HCl (Duloxetine 60 Mg Capsule) 60 mg PO DAILY [facility] Last Admin: 07/11/24 07:52 Dose: 60 mg Ergocalciferol (Ergocalciferol (Vitamin D2) 50,000 Unit Capsule) 50,000 unit PO Q7D [facility] Last Admin: 07/06/24 09:33 Dose: 50,000 unit Glucagon (Glucagon 1 Mg/Ml Kit 1 Ml) 1 mg IM ONCE PRN; Protocol PRN Reason: Adult Acute Hypoglycemia Nursing Prot. Dextrose (D5w) 500 mls @ 0 mls/hr IV ONCE PRN; Protocol PRN Reason: Adult Acute Hypoglycemia Prot Dextrose (D10w) 125 mls @ 750 mls/hr IV PRN PRN; Protocol PRN Reason: Adult Acute Hypoglycemia Nursing Protocol Dextrose (D10w) 250 mls @ 1,000 mls/hr IV PRN PRN; Protocol PRN Reason: Adult Acute Hypoglycemia Nursing Protocol Sodium Chloride (Sodium Chloride 0.9%) 1,000 mls @ 0 mls/hr IV .Q0M PRN PRN Reason: hypotension or symptomatic Albumin Human (Albumin) 12.5 gm in 50 mls @ 60 mls/hr IV PRN PRN PRN Reason: Hypotension and/or symptomatic Last Infusion: 07/11/24 15:16 Dose: Infused Levothyroxine Sodium (Levothyroxine 100 Mcg Sdv) 50 mcg IVP DAILY [facility] Last Admin: 07/11/24 07:53 Dose: 50 mcg Midodrine (Midodrine 5 Mg Tablet) 10 mg PO TID [facility] Last Admin: 07/11/24 20:36 Dose: 10 mg Morphine Sulfate (Morphine 4 Mg/Ml Sdv 1 Ml) 2 mg IVP Q4H PRN PRN Reason: SEVERE PAIN Last Admin: 07/06/24 20:34 Dose: 2 mg Multivitamins (I-Trsujms-Tefyiaz C Tablet) 1 each PO DAILY [facility] Last Admin: 07/11/24 07:51 Dose: 1 each Ondansetron HCl (Ondansetron 2 Mg/Ml Sdv 2 Ml) 4 mg IVP Q6H PRN PRN Reason: NAUSEA AND VOMITING Pantoprazole Sodium (Pantoprazole Dr 40 Mg Tablet) 40 mg PO DAILY [facility] Last Admin: 07/11/24 07:53 Dose: 40 mg Senna/Docusate Sodium (Sennosides-Docusate Tablet) 1 tab PO DAILY [facility] Last Admin: 07/11/24 07:52 Dose: 1 tab Tamsulosin HCl (Tamsulosin 0.4 Mg Capsule) 0.4 mg PO QPM [facility] Last Admin: 07/11/24 18:43 Dose: 0.4 mg Vitals/I&O/Wt Last Vital Signs Temp 98.0 F 07/11/24 19:29 Pulse 70 07/11/24 21:20 Resp 20 H 07/11/24 19:29 BP 110/59 07/11/24 19:29 Pulse Ox 97 07/11/24 19:29 O2 Del Method Room Air 07/11/24 19:29 O2 Flow Rate 0.5 07/08/24 09:29 07/11/24 07/11/24 07/11/24 06:59 14:59 22:59 Intake Total 360 / 360 730 / 1090 Output Total 300 / 400 300 / 300 Balance -300 / 631.807 360 / 360 430 / 790 Weight last 48 hrs Weight 270 lb 11.642 oz Weight 266 lb 9.2 oz Physical Exam Narrative: GENERAL: The patient is alert and oriented times three. Not in any acute distress. Chronically ill looking. HEENT: Moderate pallor, no icterus or lymphadenopathy.Oral cavity: There are no mucous membrane lesions. NECK: Trachea appears to be central. No masses noted. No JVD or thyromegaly appreciated. RESPIRATORY: Chest is symmetrical. No intercostals muscle retraction or any accessory muscle activation. There is no chest wall tenderness. The breath sounds are diminished in the bases. Dependent edema on the posterior aspect of the lower chest. BREASTS: Deferred. HEART: The aortic valve opening and closing sounds are normal. Variable intensity. Systolic murmur grade 3 or 6 in the mitral area. No diastolic murmurs. ABDOMEN: Ascites present. Normal bowel sounds : Deferred. RECTAL: Deferred. LYMPHATIC: No lymphadenopathy noted in the neck. EXTREMITIES: 3+ edema both lower extremities. No cyanosis. MUSCULOSKELETAL: No acute joint deformities or swelling SKIN: There are no significant rashes or ecchymosis NEUROPSYCHIATRIC: The patient is alert and oriented x3. Pleasant but ill looking. No focal motor deficits. Urinary Catheter Management: Vazquez: Cath Placed During This Visit: yes Reason for Continuing Indwelling Catheter: Other Urinary Catheter Date of Insertion: 07/05/24 Urinary Catheter Time of Insertion: 18:58 Data 07/11/24 04:44 07/11/24 04:44 Other Labs: Laboratory Last Values WBC 9.34 10^3/uL (3.29-11.43) 07/11/24 04:44 RBC 2.76 10^6/uL (3.85-5.65) L 07/11/24 04:44 Hgb 9.20 g/dL (11.27-16.99) L 07/11/24 04:44 Hct 28.4 % (37-53) L 07/11/24 04:44 MCV 102.9 fl (82-101) H 07/11/24 04:44 MCH 33.3 pg (27-33) H 07/11/24 04:44 MCHC 32.4 g/dL (30-55) 07/11/24 04:44 RDW 22.4 % (12.1-15.1) H 07/11/24 04:44 Plt Count 184 10^3/cmm (157-399) 07/11/24 04:44 MPV 9.3 fL (7.4-10.4) 07/11/24 04:44 Neut % (Auto) 90.2 % 07/11/24 04:44 Lymph % (Auto) 2.1 % 07/11/24 04:44 [place] % (Auto) 6.6 % 07/11/24 04:44 Eos % (Auto) 0.1 % 07/11/24 04:44 Baso % (Auto) 0.0 % 07/11/24 04:44 Neut # (Auto) 8.42 10^3/uL (1.8-7.7) H 07/11/24 04:44 Lymph # (Auto) 0.2 10^3/uL (0.8-4.8) L 07/11/24 04:44 [place] # (Auto) 0.6 10^3/uL (0.2-0.9) 07/11/24 04:44 Eos # (Auto) 0.0 10^3/uL (0.0-0.8) 07/11/24 04:44 Baso # (Auto) 0.0 10^3/uL (0.0-0.1) 07/11/24 04:44 Nucleated RBC % (auto) 0 % 07/11/24 04:44 Nucleated RBCs # 0.0 /100WBC 07/11/24 04:44 PT 16.60 SECONDS (12.1-14.9) H 07/06/24 02:47 INR 1.29 (0.8-1.2) H 07/06/24 02:47 Sodium 133 mmol/L (136-145) L 07/11/24 04:44 Potassium 4.3 mmol/L (3.5-5.1) 07/11/24 04:44 Chloride 91 mmol/L (98-107) L 07/11/24 04:44 Carbon Dioxide 26 mmol/L (22-29) 07/11/24 04:44 Anion Gap 20.3 (5-19) H 07/11/24 04:44 BUN 62 mg/dL (8-23) H 07/11/24 04:44 Creatinine 3.2 mg/dL (0.7-1.2) H 07/11/24 04:44 GFR Calculation Not Reportable 07/11/24 04:44 Glucose 164 mg/dL (65-115) H 07/11/24 04:44 POC Glucose 226 mg/dL (70-110) H 07/11/24 17:08 Estimat Average Glucose 97 07/08/24 03:33 Hemoglobin A1c 5.0 % (4.0-6.0) 07/08/24 03:33 Calculated Osmolality 297 mOsm/kg (285-295) H 07/11/24 04:44 Lactic Acid 1.3 mmol/L (0.5-2.2) 07/10/24 04:10 Calcium 9.1 mg/dL (8.5-10.5) 07/11/24 04:44 Magnesium 2.1 mg/dL (1.7-2.3) 07/11/24 04:44 Iron 24 ug/dL (59-158) L 07/08/24 03:33 TIBC 199 mcg/dl 07/08/24 03:33 % Saturation 12.0 % (20-50) L 07/08/24 03:33 Unsat Iron Binding 175 ug/dL (112-347) 07/08/24 03:33 Total Bilirubin 0.7 mg/dL (0.15-1.2) 07/11/24 04:44 AST 28 U/L (0-40) 07/11/24 04:44 ALT 26 U/L (0-41) 07/11/24 04:44 Alkaline Phosphatase 165 U/L (40-130) H 07/11/24 04:44 Total Protein 6.4 g/dL (6.6-8.7) L 07/11/24 04:44 Albumin 3.5 g/dL (3.5-5.2) 07/11/24 04:44 Globulin 2.9 g/dL (1.3-4.6) 07/11/24 04:44 Vitamin B12 1051 pg/mL (232-1245) 07/08/24 03:33 25-OH Vitamin D Total 10 ng/mL (30-100) L 07/06/24 02:47 Folate 7.5 ng/mL (4.5-32.2) 07/09/24 04:37 Procalcitonin 0.39 ng/mL (0-0.5) 07/08/24 03:33 TSH 9.76 uIU/mL (0.27-4.20) H 07/11/24 04:44 Free T4 0.83 ng/dL (0.82-1.77) 07/11/24 04:44 Free T3 1.2 PG/ML (2.0-4.4) L 07/08/24 03:33 PTH Intact 177.1 pg/mL (15-65) H 07/06/24 02:47 Calcium (PTH Intact) 8.7 mg/dL (8.5-10.5) 07/06/24 02:47 Random Cortisol 22.67 ug/dL (2.47-19.5) H 07/06/24 02:47 ABHIJEET Screen Negative (NEGATIVE) 07/05/24 04:02 Hep Bs Antigen Non-reactive (Nonreactive) 07/05/24 17:54 Hep Bs Antibody < 3.5 (11.5-1000) L 07/05/24 17:54 Hepatitis C Antibody Non-reactive (Nonreactive) 07/05/24 17:54 A&P Assessment and plan (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 Underwent hemodialysis today. Had to give IV albumin and midodrine to maintain blood pressure. Currently seems to be stable. (2) Ischemic cardiomyopathy: Patient is LV ejection fraction of 25 to 30%. Apparently the patient could not tolerate Entresto/hydralazine. (3) Atherosclerotic heart disease of [place] coronary artery without angina pectoris: Seems to be stable with no chest pain. Qualifiers: [place] vs. transplanted heart: [place] heart Qualified Code(s): I25.10 - Atherosclerotic heart disease of [place] coronary artery without angina pectoris (4) Hx of aortic valve replacement: Valve function appears to be appropriate. (5) Decompensated hepatic cirrhosis: Continue the current management. Patient with MIRANDA. Decided not to be a candidate for TIPS. Continue on the current measures (6) Ascites: Consider paracentesis for symptom relief. Qualifiers: Ascites type: other type Qualified Code(s): R18.8 - Other ascites (7) Microcytic anemia: Hemoglobin seems to be stable. (8) ICD (implantable cardioverter-defibrillator) in place: Found to be functioning okay. Continue on the current management. (9) Atrial fibrillation: Patient is mostly in the paced rhythm Qualifiers: Atrial fibrillation type: permanent Qualified Code(s): I48.21 - Permanent atrial fibrillation (10) Bilateral carotid artery stenosis: Stable with no specific symptoms. (11) Acute kidney injury superimposed on CKD: On intermittent hemodialysis requiring albumin infusion and midodrine to maintain adequate blood pressure Plan Continue on current management Attestations Medical Necessity Statement*: Deferred to the primary Coding Level of Care Code 91030 Diagnoses Biventricular failure I50.82 Ischemic cardiomyopathy I25.5 Atherosclerosis of [place] coronary artery of [place] heart without angina pectoris I25.10 [place] vs. transplanted heart: [place] heart Hx of aortic valve replacement Z95.2 Decompensated hepatic cirrhosis K72.90; K74.60 Other ascites R18.8 Ascites type: other type Microcytic anemia D50.9 ICD (implantable cardioverter-defibrillator) in place Z95.810 Permanent atrial fibrillation I48.21 Atrial fibrillation type: permanent Bilateral carotid artery stenosis I65.23 Acute kidney injury superimposed on CKD N17.9; N18.9
[2024-07-12] VITALS (10 sets, daily range): BP systolic 119–140; BP diastolic 72–91; PULSE 70–93; RESP 16–23; TEMP 36.6–37; O2SAT 97–98
[2024-07-12 04:09] LABS: Basophils % 0.1 %; Eosinophils # 0.2 10^3/uL (0.0-0.8); Eosinophils % 1.8 %; Hematocrit 28.1 % (37-53); Lymphocytes # 0.4 10^3/uL (0.8-4.8); Lymphocytes % 3.8 %; Mean Corpuscular Hemoglobin 33.5 pg (27-33); Mean Corpuscular Volume 104.5 fl (82-101); Mean Platelet Volume 10.2 fL (7.4-10.4); Monocytes # 0.7 10^3/uL (0.2-0.9); Monocytes % 7.4 %; Neutrophils # 8.39 10^3/uL (1.8-7.7); Neutrophils % 85.8 %; Nucleated Red Blood Cells % 0 %; Platelet Count 165 10^3/cmm (157-399); Red Blood Count 2.69 10^6/uL (3.85-5.65); Red Cell Distribution Width 22.7 % (12.1-15.1); White Blood Count 9.78 10^3/uL (3.29-11.43)
[2024-07-12 04:35] LABS: Alanine Aminotransferase 24 U/L (0-41); Albumin Level 3.5 g/dL (3.5-5.2); Alkaline Phosphatase 153 U/L (40-130); Anion Gap 17.1 (5-19); Aspartate Amino Transferase 25 U/L (0-40); Blood Urea Nitrogen 46 mg/dL (8-23); Calcium 8.7 mg/dL (8.5-10.5); Carbon Dioxide 27 mmol/L (22-29); Chloride 94 mmol/L (98-107); Creatinine Clr Calc Pharmacy 33.9605; Globulin 2.8 g/dL (1.3-4.6); Glucose 168 mg/dL (65-115); Osmolality Calculated 294 mOsm/kg (285-295); Potassium 4.1 mmol/L (3.5-5.1); Sodium 134 mmol/L (136-145); Total Bilirubin 0.7 mg/dL (0.15-1.2); Total Protein 6.3 g/dL (6.6-8.7)
[2024-07-12] MEDS: midodrine 5 mg TABLET 10 MG PO (08:57)
[2024-07-12] MEDS: aspirin 81 mg EC Tablet PO (08:58)
[2024-07-12] MEDS: duloxetine 60 mg Capsule PO (08:58)
[2024-07-12] MEDS: b-complex-vitamin c Tablet 1 EACH PO (08:58)
[2024-07-12] MEDS: pantoprazole DR 40 mg Tablet PO (08:58)
[2024-07-12] MEDS: sennosides-docusate Tablet 1 TAB PO (08:58)
[2024-07-12] MEDS: allopurinol 100 mg Tablet PO (08:58)
--- NOTE | 2024-07-12 10:09 | P.PN_ITS ---
Subjective 2 Subjective: s/p hd yesterday Medications: Reviewed: Yes Vitals/I&O/Wt Last Vital Signs Temp 98.5 F 07/12/24 08:44 Pulse 71 07/12/24 08:44 Resp 19 H 07/12/24 08:44 BP 122/82 07/12/24 08:44 Pulse Ox 97 07/12/24 03:27 O2 Del Method Room Air 07/12/24 03:27 O2 Flow Rate 0.5 07/08/24 09:29 07/11/24 07/12/24 07/12/24 22:59 06:59 14:59 Intake Total 730 / 1090 Output Total 300 / 300 150 / 450 Balance 430 / 790 -150 / 640 Weight last 48 hrs Weight 125.5 kg Weight 122.8 kg Physical Exam 2 Narrative: more awake,, talking, responsive HEENT normocephalic atraumatic neck is supple lungs have improved air mvoement Heart irregular with systolic murmurs. Abdomen distended positive bowel sounds positive ascites. Extremities have bilateral edema 2+. Neuro -more awake and verbal, Dialysis access right IJ permacath. Urinary Catheter Management: Vazquez: Cath Placed During This Visit: yes Reason for Continuing Indwelling Catheter: Other Urinary Catheter Date of Insertion: 07/05/24 Urinary Catheter Time of Insertion: 18:58 Data 07/12/24 03:20 07/12/24 03:20 A&P Assessment and plan (1) Acute kidney injury superimposed on CKD: 73-year-old gentleman heart failure combined systolic and diastolic with valvular heart disease. Cardiac cirrhosis increased pulmonary hypertension, acute on chronic renal failure, hypothyroidism, gout, diabetes, A-fib. 1. Heart failure acute on chronic systolic and diastolic patient has a EF of 25 to 30% not able to tolerate Entresto. The patient has an ICD patient is currently in A-fib. 2. Acute on chronic renal failure likely from hypotension, cardiac disease and secondary liver disease. - likely he has hemodynamically mediated diseases with cardio hepatorenal syndrome. Patient attempted dialysis in the past and had difficulty. -renal ultrasound -reveals ascites, no hydronephrosis -Status post hemodialysis yesterday ,BP dropped with hD and required IV albumin , , Not a longitudinal float operator HD candidate , discussed possible palliative care / conservative measures but pt and wishes to proceed with hD at this time . -will do hd 2 times / week for now , likely wont tolerate out pt HD -HD today 3. Anemia hemoglobin is stable. Platelets relatively stable 4. Leukocytosis. Monitor for infection. 5. Hyponatremia likely from renal failure liver failure and heart failure. Slightly improved with dialysis 6. Diabetic control-patient has hypoglycemia. Can decrease insulin dose. Medications reviewed. The patient was seen and examined using audiovisual equipment with the aid of a nurse. Who examined the patient. The patient and his consent to hemodialysis and to telehealth. Unfortunately very poor prognosis. Plan See above Attestations 2 Medical Necessity Statement*: per medicine Coding Level of Care Code Acute Code for Chg Fwd Diagnoses Acute kidney injury superimposed on CKD N17.9; N18.9
--- NOTE | 2024-07-12 10:42 | P.PN_ITS ---
Subjective 2 Subjective: Patient had the hemodialysis yesterday. Today he seems to be feeling little better. Overall functional status is very much limited. Still has significant edema of the lower extremities. No fever or chills. No cough. Medications: Medication Review Details: Current Medications Acetaminophen (Acetaminophen 500 Mg Tablet) 500 mg PO Q4H PRN PRN Reason: fever Last Admin: 07/04/24 19:28 Dose: 500 mg Albuterol/Ipratropium (Ipratropium-Albuterol 3 Ml Neb) 3 ml INHALATION Q6H PRN PRN Reason: SHORTNESS OF BREATH Allopurinol (Allopurinol 100 Mg Tablet) 100 mg PO DAILY [facility] Last Admin: 07/12/24 08:58 Dose: 100 mg Apixaban (Apixaban 5 Mg Tablet) 5 mg PO BID@0800,1999 [facility] Last Admin: 07/05/24 08:53 Dose: 5 mg Aspirin (Aspirin 81 Mg Ec Tablet) 81 mg PO DAILY [facility] Last Admin: 07/12/24 08:58 Dose: 81 mg Calcium Carbonate (Calcium Carbonate 500 Mg Chew Tablet) 500 mg PO Q4H PRN PRN Reason: INDIGESTION Last Admin: 07/09/24 18:20 Dose: 500 mg Duloxetine HCl (Duloxetine 60 Mg Capsule) 60 mg PO DAILY [facility] Last Admin: 07/12/24 08:58 Dose: 60 mg Ergocalciferol (Ergocalciferol (Vitamin D2) 50,000 Unit Capsule) 50,000 unit PO Q7D [facility] Last Admin: 07/06/24 09:33 Dose: 50,000 unit Glucagon (Glucagon 1 Mg/Ml Kit 1 Ml) 1 mg IM ONCE PRN; Protocol PRN Reason: Adult Acute Hypoglycemia Nursing Prot. Dextrose (D5w) 500 mls @ 0 mls/hr IV ONCE PRN; Protocol PRN Reason: Adult Acute Hypoglycemia Prot Dextrose (D10w) 125 mls @ 750 mls/hr IV PRN PRN; Protocol PRN Reason: Adult Acute Hypoglycemia Nursing Protocol Dextrose (D10w) 250 mls @ 1,000 mls/hr IV PRN PRN; Protocol PRN Reason: Adult Acute Hypoglycemia Nursing Protocol Sodium Chloride (Sodium Chloride 0.9%) 1,000 mls @ 0 mls/hr IV .Q0M PRN PRN Reason: hypotension or symptomatic Albumin Human (Albumin) 12.5 gm in 50 mls @ 60 mls/hr IV PRN PRN PRN Reason: Hypotension and/or symptomatic Last Infusion: 07/11/24 15:16 Dose: Infused Levothyroxine Sodium (Levothyroxine 100 Mcg Sdv) 50 mcg IVP DAILY [facility] Last Admin: 07/11/24 07:53 Dose: 50 mcg Midodrine (Midodrine 5 Mg Tablet) 10 mg PO TID [facility] Last Admin: 07/12/24 08:57 Dose: 10 mg Multivitamins (A-Swdreig-Vfaktmp C Tablet) 1 each PO DAILY [facility] Last Admin: 07/12/24 08:58 Dose: 1 each Ondansetron HCl (Ondansetron 2 Mg/Ml Sdv 2 Ml) 4 mg IVP Q6H PRN PRN Reason: NAUSEA AND VOMITING Pantoprazole Sodium (Pantoprazole Dr 40 Mg Tablet) 40 mg PO DAILY [facility] Last Admin: 07/12/24 08:58 Dose: 40 mg Senna/Docusate Sodium (Sennosides-Docusate Tablet) 1 tab PO DAILY [facility] Last Admin: 07/12/24 08:58 Dose: 1 tab Tamsulosin HCl (Tamsulosin 0.4 Mg Capsule) 0.4 mg PO QPM [facility] Last Admin: 07/11/24 18:43 Dose: 0.4 mg Vitals/I&O/Wt Last Vital Signs Temp 98.5 F 07/12/24 08:44 Pulse 71 07/12/24 08:44 Resp 19 H 07/12/24 08:44 BP 122/82 07/12/24 08:44 Pulse Ox 97 07/12/24 03:27 O2 Del Method Room Air 07/12/24 03:27 O2 Flow Rate 0.5 07/08/24 09:29 07/11/24 07/12/24 07/12/24 22:59 06:59 14:59 Intake Total 730 / 1090 Output Total 300 / 300 150 / 450 Balance 430 / 790 -150 / 640 Weight last 48 hrs Weight 276 lb 10.882 oz Weight 270 lb 11.642 oz Physical Exam 2 Narrative: GENERAL: The patient is alert and oriented times three. Not in any acute distress. Chronically ill looking. HEENT: Moderate pallor, no icterus or lymphadenopathy.Oral cavity: There are no mucous membrane lesions. NECK: Trachea appears to be central. No masses noted. No JVD or thyromegaly appreciated. RESPIRATORY: Chest is symmetrical. No intercostals muscle retraction or any accessory muscle activation. There is no chest wall tenderness. The breath sounds are diminished in the bases. Dependent edema on the posterior aspect of the lower chest. BREASTS: Deferred. HEART: The aortic valve opening and closing sounds are normal. Variable intensity. Systolic murmur grade 3 or 6 in the mitral area. No diastolic murmurs. ABDOMEN: Ascites present. Normal bowel sounds : Deferred. RECTAL: Deferred. LYMPHATIC: No lymphadenopathy noted in the neck. EXTREMITIES: 3+ edema both lower extremities. No cyanosis. MUSCULOSKELETAL: No acute joint deformities or swelling SKIN: There are no significant rashes or ecchymosis NEUROPSYCHIATRIC: The patient is alert and oriented x3. Pleasant but ill looking. No focal motor deficits. Urinary Catheter Management: Vazquez: Cath Placed During This Visit: yes Reason for Continuing Indwelling Catheter: Other Urinary Catheter Date of Insertion: 07/05/24 Urinary Catheter Time of Insertion: 18:58 Data 07/12/24 03:20 07/12/24 03:20 Other Labs: Laboratory Last Values WBC 9.78 10^3/uL (3.29-11.43) 07/12/24 03:20 RBC 2.69 10^6/uL (3.85-5.65) L 07/12/24 03:20 Hgb 9.00 g/dL (11.27-16.99) L 07/12/24 03:20 Hct 28.1 % (37-53) L 07/12/24 03:20 MCV 104.5 fl (82-101) H 07/12/24 03:20 MCH 33.5 pg (27-33) H 07/12/24 03:20 MCHC 32.0 g/dL (30-55) 07/12/24 03:20 RDW 22.7 % (12.1-15.1) H 07/12/24 03:20 Plt Count 165 10^3/cmm (157-399) 07/12/24 03:20 MPV 10.2 fL (7.4-10.4) 07/12/24 03:20 Neut % (Auto) 85.8 % 07/12/24 03:20 Lymph % (Auto) 3.8 % 07/12/24 03:20 Cooper % (Auto) 7.4 % 07/12/24 03:20 Eos % (Auto) 1.8 % 07/12/24 03:20 Baso % (Auto) 0.1 % 07/12/24 03:20 Neut # (Auto) 8.39 10^3/uL (1.8-7.7) H 07/12/24 03:20 Lymph # (Auto) 0.4 10^3/uL (0.8-4.8) L 07/12/24 03:20 Cooper # (Auto) 0.7 10^3/uL (0.2-0.9) 07/12/24 03:20 Eos # (Auto) 0.2 10^3/uL (0.0-0.8) 07/12/24 03:20 Baso # (Auto) 0.0 10^3/uL (0.0-0.1) 07/12/24 03:20 Nucleated RBC % (auto) 0 % 07/12/24 03:20 Nucleated RBCs # 0.0 /100WBC 07/12/24 03:20 PT 16.60 SECONDS (12.1-14.9) H 07/06/24 02:47 INR 1.29 (0.8-1.2) H 07/06/24 02:47 Sodium 134 mmol/L (136-145) L 07/12/24 03:20 Potassium 4.1 mmol/L (3.5-5.1) 07/12/24 03:20 Chloride 94 mmol/L (98-107) L 07/12/24 03:20 Carbon Dioxide 27 mmol/L (22-29) 07/12/24 03:20 Anion Gap 17.1 (5-19) 07/12/24 03:20 BUN 46 mg/dL (8-23) H 07/12/24 03:20 Creatinine 2.7 mg/dL (0.7-1.2) H 07/12/24 03:20 GFR Calculation Not Reportable 07/12/24 03:20 Glucose 168 mg/dL (65-115) H 07/12/24 03:20 POC Glucose 226 mg/dL (70-110) H 07/11/24 17:08 Estimat Average Glucose 97 07/08/24 03:33 Hemoglobin A1c 5.0 % (4.0-6.0) 07/08/24 03:33 Calculated Osmolality 294 mOsm/kg (285-295) 07/12/24 03:20 Lactic Acid 1.3 mmol/L (0.5-2.2) 07/10/24 04:10 Calcium 8.7 mg/dL (8.5-10.5) 07/12/24 03:20 Magnesium 2.1 mg/dL (1.7-2.3) 07/11/24 04:44 Iron 24 ug/dL (59-158) L 07/08/24 03:33 TIBC 199 mcg/dl 07/08/24 03:33 % Saturation 12.0 % (20-50) L 07/08/24 03:33 Unsat Iron Binding 175 ug/dL (112-347) 07/08/24 03:33 Total Bilirubin 0.7 mg/dL (0.15-1.2) 07/12/24 03:20 AST 25 U/L (0-40) 07/12/24 03:20 ALT 24 U/L (0-41) 07/12/24 03:20 Alkaline Phosphatase 153 U/L (40-130) H 07/12/24 03:20 Total Protein 6.3 g/dL (6.6-8.7) L 07/12/24 03:20 Albumin 3.5 g/dL (3.5-5.2) 07/12/24 03:20 Globulin 2.8 g/dL (1.3-4.6) 07/12/24 03:20 Vitamin B12 1051 pg/mL (232-1245) 07/08/24 03:33 25-OH Vitamin D Total 10 ng/mL (30-100) L 07/06/24 02:47 Folate 7.5 ng/mL (4.5-32.2) 07/09/24 04:37 Procalcitonin 0.39 ng/mL (0-0.5) 07/08/24 03:33 TSH 9.76 uIU/mL (0.27-4.20) H 07/11/24 04:44 Free T4 0.83 ng/dL (0.82-1.77) 07/11/24 04:44 Free T3 1.2 PG/ML (2.0-4.4) L 07/08/24 03:33 PTH Intact 177.1 pg/mL (15-65) H 07/06/24 02:47 Calcium (PTH Intact) 8.7 mg/dL (8.5-10.5) 07/06/24 02:47 Random Cortisol 22.67 ug/dL (2.47-19.5) H 07/06/24 02:47 ABHIJEET Screen Negative (NEGATIVE) 07/05/24 04:02 Hep Bs Antigen Non-reactive (Nonreactive) 07/05/24 17:54 Hep Bs Antibody < 3.5 (11.5-1000) L 07/05/24 17:54 Hepatitis C Antibody Non-reactive (Nonreactive) 07/05/24 17:54 A&P Assessment and plan (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 Underwent hemodialysis today. Had to give IV albumin and PO midodrine to maintain blood pressure. Currently seems to be stable. (2) Ischemic cardiomyopathy: Patient is LV ejection fraction of 25 to 30%. Apparently the patient could not tolerate Entresto/hydralazine. (3) Atherosclerotic heart disease of [place] coronary artery without angina pectoris: Seems to be stable with no chest pain. Qualifiers: [place] vs. transplanted heart: [place] heart Qualified Code(s): I25.10 - Atherosclerotic heart disease of [place] coronary artery without angina pectoris (4) Hx of aortic valve replacement: Valve function appears to be appropriate. May continue on the current management. (5) Decompensated hepatic cirrhosis: Continue the current management. Patient with MIRANDA. Decided not to be a candidate for TIPS. Continue on the current measures (6) Ascites: Consider paracentesis for symptom relief. Qualifiers: Ascites type: other type Qualified Code(s): R18.8 - Other ascites (7) Microcytic anemia: Hemoglobin seems to be stable. (8) ICD (implantable cardioverter-defibrillator) in place: Found to be functioning okay. Continue on the current management. (9) Atrial fibrillation: Patient is mostly in the paced rhythm Qualifiers: Atrial fibrillation type: permanent Qualified Code(s): I48.21 - Permanent atrial fibrillation (10) Bilateral carotid artery stenosis: Stable with no specific symptoms. (11) Acute kidney injury superimposed on CKD: On intermittent hemodialysis requiring albumin infusion and midodrine to maintain adequate blood pressure Plan ? Possible discharge home today Attestations 2 Medical Necessity Statement*: Deferred to the primary Coding Level of Care Code Acute Code for Chg Fwd Diagnoses Biventricular failure I50.82 Ischemic cardiomyopathy I25.5 Atherosclerosis of [place] coronary artery of [place] heart without angina pectoris I25.10 [place] vs. transplanted heart: [place] heart Hx of aortic valve replacement Z95.2 Decompensated hepatic cirrhosis K72.90; K74.60 Other ascites R18.8 Ascites type: other type Microcytic anemia D50.9 ICD (implantable cardioverter-defibrillator) in place Z95.810 Permanent atrial fibrillation I48.21 Atrial fibrillation type: permanent Bilateral carotid artery stenosis I65.23 Acute kidney injury superimposed on CKD N17.9; N18.9
--- NOTE | 2024-07-12 10:54 | PC.SOCIAL ---
IMM Update pg 2 of IMM updated and reviewed w/ patient. Copy provided and copy dated, initialed and placed in chart.
[2024-07-12] MEDS: levothyroxine 100 mcg SDV 50 MCG IVP (11:14)
--- NOTE | 2024-07-12 11:29 | PC.NURSE ---
Addendum entered by Matthew Lopez RN 07/12/24 11:34: stated to ren that they will discuss this with the pt if he wants to go to [facility]. pt stated, No. I want to go home. Original Note: [facility] team [facility] from [facility] is in room discussing options and care in their facility with pt and .
[2024-07-12] MEDS: midodrine 5 mg TABLET 15 MG PO ×2 (15:38→20:59)
--- NOTE | 2024-07-12 16:50 | PM.PN ---
Subjective Subjective: No acute events overnight. Today morning patient seen sitting in recliner. States he has been overnight as he could not sleep. Denies any complaints though. Denies any difficulty in breathing or chest pain. Hemodynamically has remained stable. Remains on room air. Vitals/I&O/Wt Last Vital Signs Temp 98.6 F 07/12/24 11:29 Pulse 70 07/12/24 12:00 Resp 21 H 07/12/24 11:29 BP 126/74 07/12/24 11:29 Pulse Ox 98 07/12/24 11:29 O2 Del Method Room Air 07/12/24 11:29 O2 Flow Rate 0.5 07/08/24 09:29 07/12/24 07/12/24 07/12/24 06:59 14:59 22:59 Intake Total 437 / 437 Output Total 150 / 450 Balance -150 / 640 437 / 437 Weight last 48 hrs Weight 125.5 kg Weight 122.8 kg Physical Exam Narrative: General: AO x 3, chronically sick appearing HEENT: PERRLA, pupils bilaterally equal and reactive Chest: Bilateral bronchial breath sounds all over lung bray with occasional rhonchi decreased air entry bilateral lower zone, no monitor of oxygen supplementation CVS: S1-S2 irregularly irregular, pansystolic murmur at apex rating to anterior axillary line, pansystolic murmur at fourth intercostal space left retrosternal, no tachycardia, no gallops, no rubs Abdomen: Soft, nontender, no organomegaly, bowel sounds present Neuro: No focal deficits, no facial deformity, power 5/5 in all limbs Urinary Catheter Management: Vazquez: Cath Placed During This Visit: yes Reason for Continuing Indwelling Catheter: Other Urinary Catheter Date of Insertion: 07/05/24 Urinary Catheter Time of Insertion: 18:58 Data 07/12/24 03:20 07/12/24 03:20 A&P Assessment and plan (1) Shock: Cardiogenic in nature. Ischemic cardiomyopathy with decompensated cardiogenic shock along with multiorgan dysfunction in setting of hepatocardiorenal syndrome with renal failure on hemodialysis. Patient not deemed a candidate for TIPS as well as LVAD as per [place] [facility]. Blood pressures have maintained off pressors for now. Dobutamine drip discontinued as does not seem to be helping. Continue with oral midodrine 10 mg 3 times daily. Monitor urine output. Fluid restriction to less than 1500 cc. (2) Biventricular failure: (3) Cardiorenal syndrome with renal failure: Appreciate CMP. Appreciate nephrology recommendations. As per nephrology patient would most likely not tolerate outpatient hemodialysis. As per goals of care discussion family would want to continue with dialysis even if it means patient's blood pressure dropping. Monitor urine output. Continue with dialysis as needed. (4) Multi-organ system dysfunction: Along with decompensated hepatic cirrhosis and acute renal failure requiring hemodialysis (5) Hyponatremia: Most likely in setting of congestive heart failure. Monitor BMP daily. (6) Hypoglycemia: Blood sugars have remained stable. Continue to hold off on Solu-Medrol. Continue with hypoglycemia protocol. If needed will add glucagon. Hypoglycemia protocol. (7) Ischemic cardiomyopathy: Last echocardiogram shows an EF of 20% with global LV hypokinesis, grade 4 diastolic dysfunction, possibility of subvalvular equal genic oscillating serpentine structure which could be chordae tendineae versus possible vegetation near mitral valve, bioprosthetic aortic valve. Continue with home dose of aspirin (8) Goals of care, counseling/discussion: Had a detailed goals of care discussion with the patient and patient's at bedside. We discussed unfortunately patient has decompensated cardiogenic shock with signs of multiorgan dysfunction and he has not been deemed a candidate for LVAD or TIPS procedure. Discussed that unfortunately currently he is dependent on Levophed and dobutamine drip which is not working well for him as well as he remains an uric with worsening of renal function requiring hemodialysis. As per family and patient quality of life is more important than quantity of life and they would not want to live like this. Discussed about possible comfort measures. would consider hospice but would want more details before making a decision. Case management alerted. Discussed about CODE STATUS. Patient and would want to change the CODE STATUS to DNR/DNI. 07/10: Had further goals of care discussion with both patient and at bedside. We discussed that unfortunately dobutamine drip is not helping again hence we will go ahead and discontinue dobutamine drip and Bumex. She verbalized understanding and is agreeable. Discussed the unfortunate situation in which patient has decompensated cardiogenic shock with multiorgan dysfunction and has been deemed not a candidate for LVAD or TIPS procedure. We discussed unfortunately at this time we have exhausted all the medical and surgical options. Discussed options going forward would be to continue dialysis intermittently if and when needed for quality of life though that can mean recurrent hypotension and recurrent admissions or even versus transition to hospice. states she has spoken to multiple children and patient's brother and they want to continue doing everything they can to prolong his life. Patient is agreeable. Wants to change CODE STATUS to full code. For now we will try to set up outpatient dialysis as possible. No hospice for now. CODE STATUS changed to full code. Will hold off on using dobutamine drip as it does not seem to be helping and patient remains oliguric on the medication. Continue with oral midodrine. 07/11: As per request of patient and family outpatient hemodialysis is been trying to worked up. Patient has been declined by [facility] as they deem him to be unstable for outpatient hemodialysis. Family wants patient to have possible dialysis at [place]. Also requesting to see he can transfer to LTAC. We did discuss most likely patient is not a candidate for LTAC as he does not have any acute condition rather he has chronic problems for which he needs outpatient possible solution versus hospice. Discussed that we will try at dialysis center at [place] as well. (9) Hemoperitoneum: (10) Hypothyroidism: Continue with IV levothyroxine. Recheck thyroid profile in AM. (11) CAD (coronary artery disease): Qualifiers: Coronary Disease-Associated Artery/Lesion type: [place] artery [place] vs. transplanted heart: [place] heart Associated angina: without angina Qualified Code(s): I25.10 - Atherosclerotic heart disease of [place] coronary artery without angina pectoris (12) Chronic systolic (congestive) heart failure: (13) H/O aortic root repair: (14) Chronic anticoagulation: (15) Diabetes: (16) Liver cirrhosis: (17) Decompensated hepatic cirrhosis: (18) ICD (implantable cardioverter-defibrillator) in place: Plan Plan for the day: Patient could not get dialysis yesterday and required albumin. Discussed with the coater operator insulation board. As per the coater operator insulation board patient is a poor candidate for outpatient dialysis because we will have high risk of decompensation during dialysis. For now switch to oral levothyroxine 100 mcg daily. Will uptitrate midodrine to possibly help with maintaining blood pressure during dialysis to midodrine 15 mg 3 times daily. Patient has high anxiety and is depressed because of ongoing severe clinical decline. Will increase Cymbalta to 90 mg oral daily. Out of bed to chair. Continue to monitor vitals. Pressure target around 65. Monitor for shortness of breath or arrhythmia. Patient's family requesting possible paracentesis. We discussed last time when the paracentesis was tried he had hemoperitoneum and there is a high concern that he can decompensate with paracentesis if the bleeding restarts. For now he does not have any difficulty in breathing and is able to saturate well on room air without any abdominal pain so we will try to hold off on paracentesis as much as possible. Will get abdominal ultrasound to monitor ascites. Patient has been declined by second dialysis center. Is been reviewed by LTAC for possible transfer for further management. Unfortunately patient remains severely ill with severely guarded prognosis. Continue with Occupational Therapy. PT evaluation. Analgesia: Morphine 2 mg every 4 hours as needed Glycemic control: Hypoglycemia protocol Nutrition: Renal dialysis diet CODE STATUS: CODE STATUS changed back to full code by patient on 07/10. PUD prophylaxis: Protonix DVT prophylaxis: Not on anticoagulation given concerns for recent hemoperitoneum. Eliquis on hold. Discharge planning: Patient's wants to go home with hospice. Case management alerted. Severely guarded prognosis This documentation was created by [employer] investigation clerk software. Every effort was made to ensure accuracy of investigation clerk. Any obvious errors or omissions should be clarified with the author of the document. Attestations Medical Necessity Statement*: Requires further hospitalization for management of cardiogenic shock in setting of severe ischemic cardiomyopathy with multiorgan dysfunction, VEE needing hemodialysis while safe discharge planning and further goals of care discussions are done Diagnoses Shock R57.9 Biventricular failure I50.82 Cardiorenal syndrome with renal failure I13.10 Multi-organ system dysfunction Hyponatremia E87.1 Hypoglycemia E16.2 Ischemic cardiomyopathy I25.5 Goals of care, counseling/discussion Z71.89 Hemoperitoneum K66.1 Hypothyroidism E03.9 Coronary artery disease involving [place] coronary artery of [place] heart without angina pectoris I25.10 Coronary Disease-Associated Artery/Lesion type: [place] artery [place] vs. transplanted heart: [place] heart Associated angina: without angina Chronic systolic (congestive) heart failure I50.22 H/O aortic root repair Z98.890 Chronic anticoagulation Z79.01 Diabetes E11.9 Liver cirrhosis K74.60 Decompensated hepatic cirrhosis K72.90; K74.60 ICD (implantable cardioverter-defibrillator) in place Z95.810
--- NOTE | 2024-07-12 17:03 | USR_ITS ---
PROCEDURE INFORMATION: Exam: US Abdomen; Limited Exam date and time: 07/12/2024 6:20 PM Age: 73 years old Clinical indication: Screening exam; Other: Ascites; Additional info: Ascitis, h/o hemoperitoneum TECHNIQUE: Imaging protocol: Real time ultrasound of the abdomen with image documentation. Limited exam focused on the region of clinical interest. COMPARISON: CT abdomen pelvis w con* [id number] 06/14/2024 10:39 AM FINDINGS: Intraperitoneal space: [id number] ascites. US/US abdomen lmt fluid [id number] IMPRESSION: [id number] ascites.
[2024-07-12] MEDS: tamsulosin 0.4 mg Capsule PO (18:16)
--- NOTE | 2024-07-12 18:32 | PC.NURSE ---
wound assessments: 1.pt has multiple small dried skin tears/abrasion on face and forehead. 2.pt has small multiple skin tears on left ear w/small dried amt of blood. cleansed left ear this morning. 3.pt has multiple skin tears/abrasions that are weeping on left forearm. Applied silvercel dressing to sites,covered with abdl surgy pads and reinier wrap. 4.pt has small bruises on right forearm. dressing on right lower forearm is dry and intact. 5.pressure injury on mid sacral area.optifoam dressing is dry and intact. 6.pressure injury on right heel stage2.applied hydrofera blue and covered with optifoam dressing then heels are floated with protectors.
--- NOTE | 2024-07-12 19:24 | PC.NURSE ---
Spoke with about patient with runs of Vtach and PVCs. Current BP is stable at 132/72 since increased midodrine to 15mg TID. said ok to start low dose metoprolol 12.5mg BID.
[2024-07-12] MEDS: metoprolol tartrate 25 mg Tablet 12.5 MG PO (20:59)
[2024-07-13] VITALS (10 sets, daily range): BP systolic 107–121; BP diastolic 57–77; PULSE 65–73; RESP 18–26; TEMP 36.5–37.1; O2SAT 95–100
[2024-07-13 03:41] LABS: Basophils % 0.1 %; Eosinophils # 0.3 10^3/uL (0.0-0.8); Hematocrit 26.9 % (37-53); Lymphocytes # 0.3 10^3/uL (0.8-4.8); Lymphocytes % 3.5 %; Mean Corpuscular HGB Conc 31.6 g/dL (30-55); Mean Corpuscular Hemoglobin 32.9 pg (27-33); Mean Corpuscular Volume 104.3 fl (82-101); Mean Platelet Volume 10.1 fL (7.4-10.4); Monocytes # 0.6 10^3/uL (0.2-0.9); Monocytes % 6.5 %; Neutrophils % 85.5 %; Nucleated Red Blood Cells % 0 %; Platelet Count 154 10^3/cmm (157-399); Red Blood Count 2.58 10^6/uL (3.85-5.65); Red Cell Distribution Width 22.6 % (12.1-15.1); White Blood Count 9.02 10^3/uL (3.29-11.43)
[2024-07-13 04:03] LABS: Alanine Aminotransferase 20 U/L (0-41); Albumin Level 3.1 g/dL (3.5-5.2); Alkaline Phosphatase 153 U/L (40-130); Anion Gap 14.9 (5-19); Aspartate Amino Transferase 21 U/L (0-40); Blood Urea Nitrogen 50 mg/dL (8-23); Calcium 8.5 mg/dL (8.5-10.5); Carbon Dioxide 28 mmol/L (22-29); Chloride 95 mmol/L (98-107); Globulin 2.6 g/dL (1.3-4.6); Glucose 140 mg/dL (65-115); Osmolality Calculated 294 mOsm/kg (285-295); Potassium 3.9 mmol/L (3.5-5.1); Sodium 134 mmol/L (136-145); Total Bilirubin 0.6 mg/dL (0.15-1.2); Total Protein 5.7 g/dL (6.6-8.7)
[2024-07-13 04:04] LABS: Creatinine Clr Calc Pharmacy 34.3438
[2024-07-13] MEDS: levothyroxine 100 mcg Tablet PO (05:29)
[2024-07-13] MEDS: acetaminophen 500 mg Tablet PO ×3 (06:21→22:14)
[2024-07-13] MEDS: aspirin 81 mg EC Tablet PO (08:59)
[2024-07-13] MEDS: pantoprazole DR 40 mg Tablet PO (08:59)
[2024-07-13] MEDS: b-complex-vitamin c Tablet 1 EACH PO (08:59)
[2024-07-13] MEDS: metoprolol tartrate 25 mg Tablet 12.5 MG PO ×2 (08:59→18:11)
[2024-07-13] MEDS: midodrine 5 mg TABLET 15 MG PO ×3 (09:00→21:34)
[2024-07-13] MEDS: duloxetine 30 mg Capsule 90 MG PO (09:00)
[2024-07-13] MEDS: sennosides-docusate Tablet 1 TAB PO (09:00)
[2024-07-13] MEDS: allopurinol 100 mg Tablet PO (09:00)
[2024-07-13] MEDS: ergocalciferol (vitamin D2) 50,000 Unit Capsule 50000 UNIT PO (10:58)
--- NOTE | 2024-07-13 11:44 | PM.DCS ---
Discharge Providers Date of Admission: 07/04/24 16:35 Date of Discharge: July 13, 2024 Attending Provider at Admission: Champ Osorio MD Attending Provider at Discharge: John Garcia MD Primary Care Provider: Teo Fields MD Diagnoses at Discharge Discharge Diagnosis (1) Shock: Status: Acute (2) Biventricular failure: Status: Acute (3) Cardiorenal syndrome with renal failure: Status: Acute (4) Multi-organ system dysfunction: Status: Acute (5) Hyponatremia: Status: Acute (6) Hypoglycemia: Status: Acute (7) Ischemic cardiomyopathy: Status: Acute (8) Goals of care, counseling/discussion: Status: Acute (9) Hemoperitoneum: Status: Acute (10) Hypothyroidism: Status: Acute (11) CAD (coronary artery disease): Status: Acute Qualifiers: Coronary Disease-Associated Artery/Lesion type: [place] artery [place] vs. 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 (14) Chronic anticoagulation: Status: Acute (15) Diabetes: Status: Acute (16) Liver cirrhosis: Status: Acute (17) Decompensated hepatic cirrhosis: Status: Acute (18) ICD (implantable cardioverter-defibrillator) in place: Status: Acute Permanent problem details: possibly [facility] device Reason for Visit Reason for Visit: Systolic Heart Failure, Hypertension Brief History: Abhay Varghese is a 73 year old male with a history of cardiomyopathy, congestive heart failure, MIRANDA with severe ascites requiring multiple large-volume paracentesis, was recently transferred to [facility] to consider TIPS. Patient had a right heart catheterization at the [facility]. 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 His ascites was thought to be mostly from the severe heart failure. He was found to be not a candidate for TIPS. He was found to have persistently high BUN/creatinine. Hemodialysis was attempted. Apparently he could not tolerate the hemodialysis because of severe hypotension. So it was decided not to continue hemodialysis. Entresto was tried for his heart failure but because of the hypotension, it had to be discontinued. He also was tried on hydralazine for afterload reduction. But because of the hypotension, it was taken off. He responded to IV dobutamine and Bumex for a while. However later on his urine output started declining. The creatinine remains elevated. He was not found to be a candidate for LVAD. So the patient and the family has decided to come back to [place] to continue the management locally. Patient denies any chest pain or chest tightness. No fever or chills. No similar cough. He is practically bedridden. He is currently on 5 mics per KG per minute of dobutamine and Bumex drip of 4 mg/h. He is right heart catheterization revealed elevated right and left heart filling pressures. Moderate pulmonary hypertension. The pulmonary vascular resistance was 4.25. The cardiac output was 1.98 L/min/m? His creatinine was staying around 2.8 during the hospital stay. His LV ejection fraction was around 25 to 30%.He was found to have episodes of PVCs and nonsustained ventricular tachycardia on the monitor. The MILITARY PROFESSIONAL-D interrogation revealed properly functioning device. He was found to be atrial fibrillation almost 100% at times. He was on long-term oral anticoagulation. Because of his anemia, chronic kidney disease and hemoperitoneum, he was taken off the anticoagulation. This patient had multiple hospital admissions in the recent past with a prolonged hospital stay. This patient has an extensive and complicated cardiac history.He used to live in [facility] and moved to this area approximately 4 years ago. He is known to have coronary disease and had a coronary artery bypass surgery, 5 vessel?, In 1997. Since then, he had PCI. In 2012, he had an aortic valve replacement with a bioprosthetic valve. 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 For which he had to undergo the third open heart surgery when he had the aortic root replaced. He is known to have a cardiomyopathy with ejection fraction around 30%. He had a MILITARY PROFESSIONAL-D placement in April of 2018. He is down to have chronic atrial fibrillation and is on long-term oral anticoagulation. Has a history of recurrent heart failure. Had a CVA in the past and had carotid artery stenting . Physical Exam Urinary Catheter Management: Vazquez: Cath Placed During This Visit: yes Reason for Continuing Indwelling Catheter: Acute Urinary Retention or Obstruction Urinary Catheter Date of Insertion: 07/05/24 Urinary Catheter Time of Insertion: 18:58 Discharge Data Studies Completed and Pending Completed Studies During Hospitalization Category Date Time Status US abdomen lmt fluid [id number] Routine Ultrasound 07/12/24 17:03 Completed US renal BI* [id number] Routine Ultrasound 07/05/24 15:59 Completed Pending at discharge Category Date Time Status Complete Blood Count w/Auto AM LABS Lab 07/14/24 04:00 Ordered Comprehensive Metabolic Panel AM LABS Lab 07/14/24 04:00 Ordered Radiology Impressions Renal Ultrasound 07/05/24 15:59 IMPRESSION: 1. Unremarkable kidneys and bladder. 2. Moderate ascites. Abdomen Ultrasound 07/12/24 17:03 IMPRESSION: [id number] ascites. Laboratory Results WBC 9.02 10^3/uL (3.29-11.43) 07/13/24 03:34 RBC 2.58 10^6/uL (3.85-5.65) L 07/13/24 03:34 Hgb 8.50 g/dL (11.27-16.99) L 07/13/24 03:34 Hct 26.9 % (37-53) L 07/13/24 03:34 MCV 104.3 fl (82-101) H 07/13/24 03:34 MCH 32.9 pg (27-33) 07/13/24 03:34 MCHC 31.6 g/dL (30-55) 07/13/24 03:34 RDW 22.6 % (12.1-15.1) H 07/13/24 03:34 Plt Count 154 10^3/cmm (157-399) L 07/13/24 03:34 MPV 10.1 fL (7.4-10.4) 07/13/24 03:34 Neut % (Auto) 85.5 % 07/13/24 03:34 Lymph % (Auto) 3.5 % 07/13/24 03:34 [place] % (Auto) 6.5 % 07/13/24 03:34 Eos % (Auto) 3.0 % 07/13/24 03:34 Baso % (Auto) 0.1 % 07/13/24 03:34 Neut # (Auto) 7.70 10^3/uL (1.8-7.7) 07/13/24 03:34 Lymph # (Auto) 0.3 10^3/uL (0.8-4.8) L 07/13/24 03:34 [place] # (Auto) 0.6 10^3/uL (0.2-0.9) 07/13/24 03:34 Eos # (Auto) 0.3 10^3/uL (0.0-0.8) 07/13/24 03:34 Baso # (Auto) 0.0 10^3/uL (0.0-0.1) 07/13/24 03:34 Nucleated RBC % (auto) 0 % 07/13/24 03:34 Nucleated RBCs # 0.0 /100WBC 07/13/24 03:34 PT 16.60 SECONDS (12.1-14.9) H 07/06/24 02:47 INR 1.29 (0.8-1.2) H 07/06/24 02:47 Sodium 134 mmol/L (136-145) L 07/13/24 03:34 Potassium 3.9 mmol/L (3.5-5.1) 07/13/24 03:34 Chloride 95 mmol/L (98-107) L 07/13/24 03:34 Carbon Dioxide 28 mmol/L (22-29) 07/13/24 03:34 Anion Gap 14.9 (5-19) 07/13/24 03:34 BUN 50 mg/dL (8-23) H 07/13/24 03:34 Creatinine 2.7 mg/dL (0.7-1.2) H 07/13/24 03:34 GFR Calculation Not Reportable 07/13/24 03:34 Glucose 140 mg/dL (65-115) H 07/13/24 03:34 POC Glucose 226 mg/dL (70-110) H 07/11/24 17:08 Estimat Average Glucose 97 07/08/24 03:33 Hemoglobin A1c 5.0 % (4.0-6.0) 07/08/24 03:33 Calculated Osmolality 294 mOsm/kg (285-295) 07/13/24 03:34 Lactic Acid 1.3 mmol/L (0.5-2.2) 07/10/24 04:10 Calcium 8.5 mg/dL (8.5-10.5) 07/13/24 03:34 Magnesium 2.1 mg/dL (1.7-2.3) 07/11/24 04:44 Iron 24 ug/dL (59-158) L 07/08/24 03:33 TIBC 199 mcg/dl 07/08/24 03:33 % Saturation 12.0 % (20-50) L 07/08/24 03:33 Unsat Iron Binding 175 ug/dL (112-347) 07/08/24 03:33 Total Bilirubin 0.6 mg/dL (0.15-1.2) 07/13/24 03:34 AST 21 U/L (0-40) 07/13/24 03:34 ALT 20 U/L (0-41) 07/13/24 03:34 Alkaline Phosphatase 153 U/L (40-130) H 07/13/24 03:34 Total Protein 5.7 g/dL (6.6-8.7) L 07/13/24 03:34 Albumin 3.1 g/dL (3.5-5.2) L 07/13/24 03:34 Globulin 2.6 g/dL (1.3-4.6) 07/13/24 03:34 Vitamin B12 1051 pg/mL (232-1245) 07/08/24 03:33 25-OH Vitamin D Total 10 ng/mL (30-100) L 07/06/24 02:47 Folate 7.5 ng/mL (4.5-32.2) 07/09/24 04:37 Procalcitonin 0.39 ng/mL (0-0.5) 07/08/24 03:33 TSH 9.76 uIU/mL (0.27-4.20) H 07/11/24 04:44 Free T4 0.83 ng/dL (0.82-1.77) 07/11/24 04:44 Free T3 1.2 PG/ML (2.0-4.4) L 07/08/24 03:33 PTH Intact 177.1 pg/mL (15-65) H 07/06/24 02:47 Calcium (PTH Intact) 8.7 mg/dL (8.5-10.5) 07/06/24 02:47 Random Cortisol 22.67 ug/dL (2.47-19.5) H 07/06/24 02:47 ABHIJEET Screen Negative (NEGATIVE) 07/05/24 04:02 Hep Bs Antigen Non-reactive (Nonreactive) 07/05/24 17:54 Hep Bs Antibody < 3.5 (11.5-1000) L 07/05/24 17:54 Hepatitis C Antibody Non-reactive (Nonreactive) 07/05/24 17:54 Vitals Last Vital Signs Temp 97.8 F 07/13/24 08:00 Pulse 70 07/13/24 10:00 Resp 22 H 07/13/24 10:00 BP 114/68 07/13/24 08:00 Pulse Ox 95 07/13/24 10:00 O2 Del Method Room Air 07/13/24 10:00 O2 Flow Rate 0.5 07/08/24 09:29 Discharge Plan Discharge Patient Disposition: Home Health Service Condition: Stable Prescriptions: New metoprolol tartrate 25 mg Tablet 12.5 mg PO BID 30 Days Qty: 30 0RF ergocalciferol (vitamin D2) [Vitamin D2] 1,250 mcg (50,000 unit) Capsule 50,000 unit PO Q7D 30 Days Qty: 4 0RF levothyroxine [Levoxyl] 100 mcg Tablet 100 mcg PO QAM 30 Days Qty: 30 0RF midodrine 5 mg Tablet 15 mg PO TID 30 Days Qty: 270 0RF Continued allopurinol 100 mg tablet 100 mg PO DAILY Qty: 90 3RF duloxetine 60 mg capsule,delayed release(DR/EC) 60 mg PO DAILY Qty: 90 3RF pantoprazole 40 mg tablet,delayed release (DR/EC) 40 mg PO DAILY tramadol-acetaminophen 37.5-325 mg tablet 1 tab PO BID PRN (Reason: Pain) Qty: 60 5RF aspirin [Aspir-81] 81 mg Tablet,Delayed Release (Dr/Ec) 81 mg PO DAILY tamsulosin 0.4 mg capsule 0.4 mg PO QPM Discontinued Eliquis 5 mg tablet See Rx Instructions .ROUTE .COMPLEX Qty: 180 3RF Dose Instruction: Take 1 tablet by mouth twice daily at 8am and 8pm. Rx Instructions: Take 1 tablet by mouth twice daily at 8am and 8pm. isosorbide dinitrate 10 mg tablet 10 mg PO TID hydralazine 10 mg tablet 10 mg PO BID levothyroxine 25 mcg tablet 25 mcg PO DAILY bumetanide 1 mg tablet 2 mg PO BID spironolactone 50 mg tablet 50 mg PO BID Discharge Orders: Discharge Order (Routine); Ordered 07/13/24 Ordered By: John Garcia Other Ambulatory Orders: DME: Miscellaneous (Order) Location: None Selected Ordered By: John Garcia DME: Commode (Order) Location: None Selected Ordered By: John Garcia DME: Miscellaneous (Order) Location: None Selected Ordered By: John Garcia DME: Wheelchair (Order) Location: None Selected Ordered By: John Garcia Referrals: [facility] [Outside] Rosie Horton MD [Referring] - 4-7 days (Can also call [phone]. ) Teo Fields MD [Primary Care Provider] - 1-3 days Sascha Londono MD [Physician] - 4-7 days Discharge Diet: Cardiac Discharge Activity: Resume usual activity and Increase activity as tolerated Patient Instructions: Dialysis Diet (DC), Hemodialysis (DC), Opioid Safety Activity Restrictions/Additional Instructions: Restrict fluid intake to less than 1500 cc, salt intake to less than 2 g daily. Advised to check his weight daily at home. Discharge Attestations Time Spent in Discharge Care*: greater than 30 min Specific Discharge Activities: educating patient, educating and/or supporting family/caregiver, discussing with pcp/other providers, documenting/other paperwork and evaluating patient/reviewing data Status at Discharge: Cognitive status at discharge: cognitively intact, Behavioral status at discharge: cooperative, Functional status at discharge: uses cane/walker, Overall status at discharge: patient has a new baseline Quality Metrics Clinical Quality Measures [ No reported AMI, CVA or VTE this stay] Coding Level of Care Code 89998 Total time (in minutes) for Discharge: 80 Diagnoses Shock R57.9 Biventricular failure I50.82 Cardiorenal syndrome with renal failure I13.10 Multi-organ system dysfunction Hyponatremia E87.1 Hypoglycemia E16.2 Ischemic cardiomyopathy I25.5 Goals of care, counseling/discussion Z71.89 Hemoperitoneum K66.1 Hypothyroidism E03.9 Coronary artery disease involving [place] coronary artery of [place] heart without angina pectoris I25.10 Coronary Disease-Associated Artery/Lesion type: [place] artery [place] vs. transplanted heart: [place] heart Associated angina: without angina Chronic systolic (congestive) heart failure I50.22 H/O aortic root repair Z98.890 Chronic anticoagulation Z79.01 Diabetes E11.9 Liver cirrhosis K74.60 Decompensated hepatic cirrhosis K72.90; K74.60 ICD (implantable cardioverter-defibrillator) in place Z95.810
--- NOTE | 2024-07-13 11:50 | PM.PN ---
Subjective Subjective: No acute events overnight. Patient seen sitting comfortably in bed with spouse at bedside. Patient denies any nausea vomiting, headache. Has remained hemodynamically stable and afebrile. Vitals/I&O/Wt Last Vital Signs Temp 98.5 F 07/13/24 11:46 Pulse 73 07/13/24 11:46 Resp 21 H 07/13/24 11:46 BP 118/66 07/13/24 11:46 Pulse Ox 100 07/13/24 11:46 O2 Del Method Room Air 07/13/24 11:46 O2 Flow Rate 0.5 07/08/24 09:29 07/12/24 07/13/24 07/13/24 22:59 06:59 14:59 Intake Total 240 / 677 120 / 120 Output Total 250 / 250 275 / 525 Balance -10 / 427 -275 / 152 120 / 120 Weight last 48 hrs Weight 127.4 kg Weight 125.5 kg Physical Exam Narrative: General: AO x 3, chronically sick appearing HEENT: PERRLA, pupils bilaterally equal and reactive Chest: Bilateral bronchial breath sounds all over lung bray with occasional rhonchi decreased air entry bilateral lower zone, no monitor of oxygen supplementation CVS: S1-S2 irregularly irregular, pansystolic murmur at apex rating to anterior axillary line, pansystolic murmur at fourth intercostal space left retrosternal, no tachycardia, no gallops, no rubs Abdomen: Soft, nontender, no organomegaly, bowel sounds present Neuro: No focal deficits, no facial deformity, power 5/5 in all limbs Urinary Catheter Management: Vazquez: Cath Placed During This Visit: yes Reason for Continuing Indwelling Catheter: Acute Urinary Retention or Obstruction Urinary Catheter Date of Insertion: 07/05/24 Urinary Catheter Time of Insertion: 18:58 Data 07/13/24 03:34 07/13/24 03:34 A&P Assessment and plan (1) Shock: Cardiogenic in nature. Ischemic cardiomyopathy with decompensated cardiogenic shock along with multiorgan dysfunction in setting of hepatocardiorenal syndrome with renal failure on hemodialysis. Patient not deemed a candidate for TIPS as well as LVAD as per [place] [facility]. Resolved for now. Blood pressures have maintained off pressors for now. Dobutamine drip discontinued as does not seem to be helping. Continue with oral midodrine 15 mg 3 times daily. Monitor urine output. Fluid restriction to less than 1500 cc. (2) Biventricular failure: Patient could not tolerate guideline directed congestive heart failure medications including Imdur, Entresto, CEZAR or ARB because of drop in blood pressure. Patient did not respond to dobutamine. Restarted low-dose beta-shailesh with metoprolol 12.5 mg twice daily. (3) Cardiorenal syndrome with renal failure: Appreciate CMP. Appreciate nephrology recommendations. As per nephrology patient would most likely not tolerate outpatient hemodialysis. As per goals of care discussion family would want to continue with dialysis even if it means patient's blood pressure dropping. Monitor urine output. For now plan to dialysis only when needed. Case management trying to arrange for chair time as an outpatient though patient has been declined by multiple dialysis center as he is deemed unstable. (4) Multi-organ system dysfunction: Along with decompensated hepatic cirrhosis and acute renal failure requiring hemodialysis (5) Hyponatremia: Most likely in setting of congestive heart failure. Monitor BMP daily. (6) Hypoglycemia: Blood sugars have remained stable. Continue with hypoglycemia protocol. If needed will add glucagon. Hypoglycemia protocol. (7) Ischemic cardiomyopathy: Last echocardiogram shows an EF of 20% with global LV hypokinesis, grade 4 diastolic dysfunction, possibility of subvalvular equal genic oscillating serpentine structure which could be chordae tendineae versus possible vegetation near mitral valve, bioprosthetic aortic valve. Continue with home dose of aspirin (8) Goals of care, counseling/discussion: Had a detailed goals of care discussion with the patient and patient's at bedside. We discussed unfortunately patient has decompensated cardiogenic shock with signs of multiorgan dysfunction and he has not been deemed a candidate for LVAD or TIPS procedure. Discussed that unfortunately currently he is dependent on Levophed and dobutamine drip which is not working well for him as well as he remains an uric with worsening of renal function requiring hemodialysis. As per family and patient quality of life is more important than quantity of life and they would not want to live like this. Discussed about possible comfort measures. would consider hospice but would want more details before making a decision. Case management alerted. Discussed about CODE STATUS. Patient and would want to change the CODE STATUS to DNR/DNI. 07/10: Had further goals of care discussion with both patient and at bedside. We discussed that unfortunately dobutamine drip is not helping again hence we will go ahead and discontinue dobutamine drip and Bumex. She verbalized understanding and is agreeable. Discussed the unfortunate situation in which patient has decompensated cardiogenic shock with multiorgan dysfunction and has been deemed not a candidate for LVAD or TIPS procedure. We discussed unfortunately at this time we have exhausted all the medical and surgical options. Discussed options going forward would be to continue dialysis intermittently if and when needed for quality of life though that can mean recurrent hypotension and recurrent admissions or even versus transition to hospice. states she has spoken to multiple children and patient's brother and they want to continue doing everything they can to prolong his life. Patient is agreeable. Wants to change CODE STATUS to full code. For now we will try to set up outpatient dialysis as possible. No hospice for now. CODE STATUS changed to full code. Will hold off on using dobutamine drip as it does not seem to be helping and patient remains oliguric on the medication. Continue with oral midodrine. 07/11: As per request of patient and family outpatient hemodialysis is been trying to worked up. Patient has been declined by [facility] as they deem him to be unstable for outpatient hemodialysis. Family wants patient to have possible dialysis at [place]. Also requesting to see he can transfer to LTAC. We did discuss most likely patient is not a candidate for LTAC as he does not have any acute condition rather he has chronic problems for which he needs outpatient possible solution versus hospice. Discussed that we will try at dialysis center at [place] as well. 07/13: Today patient requested to be discharged home. He states he wants to follow-up with outpatient coat presser who he had seen before at [place]. We discussed given his goals of care as of now he still has not been able to set up outpatient dialysis for him and he might need dialysis in 4 to 5 days depending on the lab work or for difficulty in breathing. Discussed because of concerns for CKD he can develop hyperkalemia which can cause arrhythmia which in fact can cause further cardiogenic shock or even . Patient verbalizes understanding but states it is important for him to go home and meet with To see if something can be done to save his life. We discussed most likely if he is discharged today he needs to understand the risks of even as he still does not have a dialysis place set up for him and as he still has the goals of being alive no matter what. Discussed he might also lose the place at LTAC as we have been told they might be able to accept him but are pending to hear back from insurance. Patient at first states he would like to go home understanding that he might get sick again or might not live but later changed his mind stating that he would rather stay over the weekend to see if he can get a bed at LTAC. (9) Hemoperitoneum: Repeat abdominal ultrasound from 07/12 shows moderate to large ascites. Can plan for possible paracentesis in a slow manner while monitoring his vitals and may be replacing with albumin for palliative care as it can cause repeat of hemoperitoneum which can lead to anemia or worsening of hemodynamics leading to cardiogenic shock or worsening of renal functions. (10) Hypothyroidism: Continue with IV levothyroxine. Recheck thyroid profile in AM. (11) CAD (coronary artery disease): Qualifiers: Associated angina: without angina Coronary Disease-Associated Artery/Lesion type: [place] artery [place] vs. transplanted heart: [place] heart Qualified Code(s): I25.10 - Atherosclerotic heart disease of [place] coronary artery without angina pectoris (12) Chronic systolic (congestive) heart failure: (13) H/O aortic root repair: (14) Chronic anticoagulation: Currently on hold given hemoperitoneum. Hemoglobin so far stable. (15) Diabetes: Hemoglobin stable now. Monitor for hypoglycemia as above. (16) Decompensated hepatic cirrhosis: Deemed not a candidate for TIPS procedure at [facility] (17) ICD (implantable cardioverter-defibrillator) in place: Plan Discharge plan: Patient remains full code. He does not want to go hospice. He wants to have further dialysis if and when needed. Awaiting dialysis chair time though patient has been declined by multiple dialysis centers as an outpatient because he is deemed unstable. Possible transfer to LTAC for further rehabitation and management. Possibly has been accepted though awaiting approval from insurance. Analgesia: Morphine 2 mg every 4 hours as needed Glycemic control: Hypoglycemia protocol Nutrition: Renal dialysis diet CODE STATUS: CODE STATUS changed back to full code by patient on 07/10. PUD prophylaxis: Protonix DVT prophylaxis: Not on anticoagulation given concerns for recent hemoperitoneum. Eliquis on hold. Severely guarded prognosis This documentation was created by [employer] behavioral health assistant software. Every effort was made to ensure accuracy of behavioral health assistant. Any obvious errors or omissions should be clarified with the author of the document. Attestations Medical Necessity Statement*: Requires further hospitalization for management of cardiogenic shock in setting of biventricular failure with multiorgan dysfunction in a patient while outpatient chair time for safe discharge planning and further goals of care discussions were done Diagnoses Shock R57.9 Biventricular failure I50.82 Cardiorenal syndrome with renal failure I13.10 Multi-organ system dysfunction Hyponatremia E87.1 Hypoglycemia E16.2 Ischemic cardiomyopathy I25.5 Goals of care, counseling/discussion Z71.89 Hemoperitoneum K66.1 Hypothyroidism E03.9 Coronary artery disease involving [place] coronary artery of [place] heart without angina pectoris I25.10 Associated angina: without angina Coronary Disease-Associated Artery/Lesion type: [place] artery [place] vs. transplanted heart: [place] heart Chronic systolic (congestive) heart failure I50.22 H/O aortic root repair Z98.890 Chronic anticoagulation Z79.01 Diabetes E11.9 Decompensated hepatic cirrhosis K72.90; K74.60 ICD (implantable cardioverter-defibrillator) in place Z95.810
--- NOTE | 2024-07-13 12:06 | PM.PN ---
Subjective Subjective: Patient seems to be stable with no new symptoms. Denies any fever or chills. Appetite is fair. He is planning to go to the [facility] in [place] Medications: Medication Review Details: Current Medications Acetaminophen (Acetaminophen 500 Mg Tablet) 500 mg PO Q4H PRN PRN Reason: fever Last Admin: 07/13/24 06:21 Dose: 500 mg Albuterol/Ipratropium (Ipratropium-Albuterol 3 Ml Neb) 3 ml INHALATION Q6H PRN PRN Reason: SHORTNESS OF BREATH Allopurinol (Allopurinol 100 Mg Tablet) 100 mg PO DAILY [facility] Last Admin: 07/13/24 09:00 Dose: 100 mg Apixaban (Apixaban 5 Mg Tablet) 5 mg PO BID@0800,1999 [facility] Last Admin: 07/05/24 08:53 Dose: 5 mg Aspirin (Aspirin 81 Mg Ec Tablet) 81 mg PO DAILY [facility] Last Admin: 07/13/24 08:59 Dose: 81 mg Calcium Carbonate (Calcium Carbonate 500 Mg Chew Tablet) 500 mg PO Q4H PRN PRN Reason: INDIGESTION Last Admin: 07/09/24 18:20 Dose: 500 mg Duloxetine HCl (Duloxetine 30 Mg Capsule) 90 mg PO DAILY [facility] Last Admin: 07/13/24 09:00 Dose: 90 mg Ergocalciferol (Ergocalciferol (Vitamin D2) 50,000 Unit Capsule) 50,000 unit PO Q7D [facility] Last Admin: 07/13/24 10:58 Dose: 50,000 unit Glucagon (Glucagon 1 Mg/Ml Kit 1 Ml) 1 mg IM ONCE PRN; Protocol PRN Reason: Adult Acute Hypoglycemia Nursing Prot. Dextrose (D5w) 500 mls @ 0 mls/hr IV ONCE PRN; Protocol PRN Reason: Adult Acute Hypoglycemia Prot Dextrose (D10w) 125 mls @ 750 mls/hr IV PRN PRN; Protocol PRN Reason: Adult Acute Hypoglycemia Nursing Protocol Dextrose (D10w) 250 mls @ 1,000 mls/hr IV PRN PRN; Protocol PRN Reason: Adult Acute Hypoglycemia Nursing Protocol Sodium Chloride (Sodium Chloride 0.9%) 1,000 mls @ 0 mls/hr IV .Q0M PRN PRN Reason: hypotension or symptomatic Albumin Human (Albumin) 12.5 gm in 50 mls @ 60 mls/hr IV PRN PRN PRN Reason: Hypotension and/or symptomatic Last Infusion: 07/11/24 15:16 Dose: Infused Levothyroxine Sodium (Levothyroxine 100 Mcg Tablet) 100 mcg PO QAM [facility] Last Admin: 07/13/24 05:29 Dose: 100 mcg Metoprolol Tartrate (Metoprolol Tartrate 25 Mg Tablet) 12.5 mg PO BID [facility] Last Admin: 07/13/24 08:59 Dose: 12.5 mg Midodrine (Midodrine 5 Mg Tablet) 15 mg PO TID [facility] Last Admin: 07/13/24 09:00 Dose: 15 mg Multivitamins (C-Rbahbdh-Rbqjsaa C Tablet) 1 each PO DAILY [facility] Last Admin: 07/13/24 08:59 Dose: 1 each Ondansetron HCl (Ondansetron 2 Mg/Ml Sdv 2 Ml) 4 mg IVP Q6H PRN PRN Reason: NAUSEA AND VOMITING Pantoprazole Sodium (Pantoprazole Dr 40 Mg Tablet) 40 mg PO DAILY [facility] Last Admin: 07/13/24 08:59 Dose: 40 mg Senna/Docusate Sodium (Sennosides-Docusate Tablet) 1 tab PO DAILY [facility] Last Admin: 07/13/24 09:00 Dose: 1 tab Tamsulosin HCl (Tamsulosin 0.4 Mg Capsule) 0.4 mg PO QPM [facility] Last Admin: 07/12/24 18:16 Dose: 0.4 mg Vitals/I&O/Wt Last Vital Signs Temp 98.5 F 07/13/24 11:46 Pulse 73 07/13/24 11:46 Resp 21 H 07/13/24 11:46 BP 118/66 07/13/24 11:46 Pulse Ox 100 07/13/24 11:46 O2 Del Method Room Air 07/13/24 11:46 O2 Flow Rate 0.5 07/08/24 09:29 07/12/24 07/13/24 07/13/24 22:59 06:59 14:59 Intake Total 240 / 677 120 / 120 Output Total 250 / 250 275 / 525 Balance -10 / 427 -275 / 152 120 / 120 Weight last 48 hrs Weight 280 lb 13.903 oz Weight 276 lb 10.882 oz Physical Exam Narrative: GENERAL: The patient is alert and oriented times three. Not in any acute distress. Chronically ill looking. HEENT: Moderate pallor, no icterus or lymphadenopathy.Oral cavity: There are no mucous membrane lesions. NECK: Trachea appears to be central. No masses noted. No JVD or thyromegaly appreciated. RESPIRATORY: Chest is symmetrical. No intercostals muscle retraction or any accessory muscle activation. There is no chest wall tenderness. The breath sounds are diminished in the bases. Dependent edema on the posterior aspect of the lower chest. BREASTS: Deferred. HEART: The aortic valve opening and closing sounds are normal. Variable intensity. Systolic murmur grade 3 or 6 in the mitral area. No diastolic murmurs. ABDOMEN: Ascites present. Normal bowel sounds : Deferred. RECTAL: Deferred. LYMPHATIC: No lymphadenopathy noted in the neck. EXTREMITIES: 2-3+ edema both lower extremities. No cyanosis. MUSCULOSKELETAL: No acute joint deformities or swelling SKIN: There are no significant rashes or ecchymosis NEUROPSYCHIATRIC: The patient is alert and oriented x3. Pleasant but ill looking. No focal motor deficits. Urinary Catheter Management: Vazquez: Cath Placed During This Visit: yes Reason for Continuing Indwelling Catheter: Acute Urinary Retention or Obstruction Urinary Catheter Date of Insertion: 07/05/24 Urinary Catheter Time of Insertion: 18:58 Data 07/13/24 03:34 07/13/24 03:34 Other Labs: Laboratory Last Values WBC 9.02 10^3/uL (3.29-11.43) 07/13/24 03:34 RBC 2.58 10^6/uL (3.85-5.65) L 07/13/24 03:34 Hgb 8.50 g/dL (11.27-16.99) L 07/13/24 03:34 Hct 26.9 % (37-53) L 07/13/24 03:34 MCV 104.3 fl (82-101) H 07/13/24 03:34 MCH 32.9 pg (27-33) 07/13/24 03:34 MCHC 31.6 g/dL (30-55) 07/13/24 03:34 RDW 22.6 % (12.1-15.1) H 07/13/24 03:34 Plt Count 154 10^3/cmm (157-399) L 07/13/24 03:34 MPV 10.1 fL (7.4-10.4) 07/13/24 03:34 Neut % (Auto) 85.5 % 07/13/24 03:34 Lymph % (Auto) 3.5 % 07/13/24 03:34 [place] % (Auto) 6.5 % 07/13/24 03:34 Eos % (Auto) 3.0 % 07/13/24 03:34 Baso % (Auto) 0.1 % 07/13/24 03:34 Neut # (Auto) 7.70 10^3/uL (1.8-7.7) 07/13/24 03:34 Lymph # (Auto) 0.3 10^3/uL (0.8-4.8) L 07/13/24 03:34 [place] # (Auto) 0.6 10^3/uL (0.2-0.9) 07/13/24 03:34 Eos # (Auto) 0.3 10^3/uL (0.0-0.8) 07/13/24 03:34 Baso # (Auto) 0.0 10^3/uL (0.0-0.1) 07/13/24 03:34 Nucleated RBC % (auto) 0 % 07/13/24 03:34 Nucleated RBCs # 0.0 /100WBC 07/13/24 03:34 PT 16.60 SECONDS (12.1-14.9) H 07/06/24 02:47 INR 1.29 (0.8-1.2) H 07/06/24 02:47 Sodium 134 mmol/L (136-145) L 07/13/24 03:34 Potassium 3.9 mmol/L (3.5-5.1) 07/13/24 03:34 Chloride 95 mmol/L (98-107) L 07/13/24 03:34 Carbon Dioxide 28 mmol/L (22-29) 07/13/24 03:34 Anion Gap 14.9 (5-19) 07/13/24 03:34 BUN 50 mg/dL (8-23) H 07/13/24 03:34 Creatinine 2.7 mg/dL (0.7-1.2) H 07/13/24 03:34 GFR Calculation Not Reportable 07/13/24 03:34 Glucose 140 mg/dL (65-115) H 07/13/24 03:34 POC Glucose 226 mg/dL (70-110) H 07/11/24 17:08 Estimat Average Glucose 97 07/08/24 03:33 Hemoglobin A1c 5.0 % (4.0-6.0) 07/08/24 03:33 Calculated Osmolality 294 mOsm/kg (285-295) 07/13/24 03:34 Lactic Acid 1.3 mmol/L (0.5-2.2) 07/10/24 04:10 Calcium 8.5 mg/dL (8.5-10.5) 07/13/24 03:34 Magnesium 2.1 mg/dL (1.7-2.3) 07/11/24 04:44 Iron 24 ug/dL (59-158) L 07/08/24 03:33 TIBC 199 mcg/dl 07/08/24 03:33 % Saturation 12.0 % (20-50) L 07/08/24 03:33 Unsat Iron Binding 175 ug/dL (112-347) 07/08/24 03:33 Total Bilirubin 0.6 mg/dL (0.15-1.2) 07/13/24 03:34 AST 21 U/L (0-40) 07/13/24 03:34 ALT 20 U/L (0-41) 07/13/24 03:34 Alkaline Phosphatase 153 U/L (40-130) H 07/13/24 03:34 Total Protein 5.7 g/dL (6.6-8.7) L 07/13/24 03:34 Albumin 3.1 g/dL (3.5-5.2) L 07/13/24 03:34 Globulin 2.6 g/dL (1.3-4.6) 07/13/24 03:34 Vitamin B12 1051 pg/mL (232-1245) 07/08/24 03:33 25-OH Vitamin D Total 10 ng/mL (30-100) L 07/06/24 02:47 Folate 7.5 ng/mL (4.5-32.2) 07/09/24 04:37 Procalcitonin 0.39 ng/mL (0-0.5) 07/08/24 03:33 TSH 9.76 uIU/mL (0.27-4.20) H 07/11/24 04:44 Free T4 0.83 ng/dL (0.82-1.77) 07/11/24 04:44 Free T3 1.2 PG/ML (2.0-4.4) L 07/08/24 03:33 PTH Intact 177.1 pg/mL (15-65) H 07/06/24 02:47 Calcium (PTH Intact) 8.7 mg/dL (8.5-10.5) 07/06/24 02:47 Random Cortisol 22.67 ug/dL (2.47-19.5) H 07/06/24 02:47 ABHIJEET Screen Negative (NEGATIVE) 07/05/24 04:02 Hep Bs Antigen Non-reactive (Nonreactive) 07/05/24 17:54 Hep Bs Antibody < 3.5 (11.5-1000) L 07/05/24 17:54 Hepatitis C Antibody Non-reactive (Nonreactive) 07/05/24 17:54 A&P Assessment and plan (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 Heart failure he is somewhat compensated at this time. (2) Ischemic cardiomyopathy: Patient is LV ejection fraction of 25 to 30%. Apparently the patient could not tolerate Entresto/hydralazine. (3) Atherosclerotic heart disease of [place] coronary artery without angina pectoris: Seems to be stable with no chest pain. Qualifiers: [place] vs. transplanted heart: [place] heart Qualified Code(s): I25.10 - Atherosclerotic heart disease of [place] coronary artery without angina pectoris (4) Hx of aortic valve replacement: Valve function appears to be appropriate. May continue on the current management. (5) Decompensated hepatic cirrhosis: Continue the current management. Patient with MIRANDA. Decided not to be a candidate for TIPS. Continue on the current measures (6) Ascites: Moderate to large ascites. Patient seems to be managing okay at this time. Qualifiers: Ascites type: other type Qualified Code(s): R18.8 - Other ascites (7) Microcytic anemia: Hemoglobin seems to be stable. May consider discontinuing aspirin and keep on Eliquis (8) ICD (implantable cardioverter-defibrillator) in place: Found to be functioning okay. Continue on the current management. (9) Atrial fibrillation: Patient is mostly in the paced rhythm Qualifiers: Atrial fibrillation type: permanent Qualified Code(s): I48.21 - Permanent atrial fibrillation (10) Bilateral carotid artery stenosis: Stable with no specific symptoms. (11) Acute kidney injury superimposed on CKD: On intermittent hemodialysis requiring albumin infusion and midodrine to maintain adequate blood pressure Plan Awaiting transfer to the [facility] in [place]. Continue on the current management. Need to discuss about the aspirin use along with the Eliquis Attestations Medical Necessity Statement*: Deferred to the primary Coding Level of Care Code 63773 Diagnoses Biventricular failure I50.82 Ischemic cardiomyopathy I25.5 Atherosclerosis of [place] coronary artery of [place] heart without angina pectoris I25.10 [place] vs. transplanted heart: [place] heart Hx of aortic valve replacement Z95.2 Decompensated hepatic cirrhosis K72.90; K74.60 Other ascites R18.8 Ascites type: other type Microcytic anemia D50.9 ICD (implantable cardioverter-defibrillator) in place Z95.810 Permanent atrial fibrillation I48.21 Atrial fibrillation type: permanent Bilateral carotid artery stenosis I65.23 Acute kidney injury superimposed on CKD N17.9; N18.9
[2024-07-13] MEDS: tamsulosin 0.4 mg Capsule PO (18:11)
--- NOTE | 2024-07-13 19:21 | P.PN_ITS ---
Subjective 2 Subjective: pt comfortable , on room air Medications: Reviewed: Yes Vitals/I&O/Wt Last Vital Signs Temp 97.7 F 07/13/24 19:19 Pulse 70 07/13/24 19:19 Resp 22 H 07/13/24 19:19 BP 108/57 07/13/24 19:19 Pulse Ox 96 07/13/24 19:19 O2 Del Method Room Air 07/13/24 19:19 O2 Flow Rate 0.5 07/08/24 09:29 07/13/24 07/13/24 07/13/24 06:59 14:59 22:59 Intake Total 240 / 240 Output Total 275 / 525 100 / 100 Balance -275 / 152 240 / 240 -100 / 140 Weight last 48 hrs Weight 127.4 kg Weight 125.5 kg Physical Exam 2 Narrative: more awake,, talking, responsive HEENT normocephalic atraumatic neck is supple lungs have improved air mvoement Heart irregular with systolic murmurs. Abdomen distended positive bowel sounds positive ascites. Extremities have bilateral edema 2+. Neuro -more awake and verbal, Dialysis access right IJ permacath. 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 Cardiac cirrhosis increased pulmonary hypertension, acute on chronic renal failure, hypothyroidism, gout, diabetes, A-fib. 1. Heart failure acute on chronic systolic and diastolic patient has a EF of 25 to 30% not able to tolerate Entresto. The patient has an ICD patient is currently in A-fib. 2. Acute on chronic renal failure likely from hypotension, cardiac disease and secondary liver disease. - likely he has hemodynamically mediated diseases with cardio hepatorenal syndrome. -renal ultrasound -reveals ascites, no hydronephrosis -Status post hemodialysis , but ,BP dropped with hD and required IV albumin , , -Repeatedly discussed with patient and regarding overall poor prognosis and patient unable to to tolerate dialysis -Also given underlying advanced liver failure, offering hemodialysis would not improve his overall survival Not a intermediate HD candidate , discussed possible palliative care /conservative management would be more appropriate 3. Anemia hemoglobin is stable. Platelets relatively stable . 5. Hyponatremia likely from renal failure liver failure and heart failure. Slightly improved with dialysis 6. Diabetic control-patient has hypoglycemia. Can decrease insulin dose. Medications reviewed. The patient was seen and examined using audiovisual equipment with the aid of a nurse. Who examined the patient. The patient and his consent to hemodialysis and to telehealth. Unfortunately very poor prognosis. Plan See above Attestations 2 Medical Necessity Statement*: per medicine Coding Level of Care Code Acute Code for Chg Fwd Diagnoses Acute kidney injury superimposed on CKD N17.9; N18.9
[2024-07-14] VITALS (9 sets, daily range): BP systolic 101–124; BP diastolic 52–71; PULSE 69–78; RESP 15–25; TEMP 36.4–36.9; O2SAT 95–98
[2024-07-14] MEDS: acetaminophen 500 mg Tablet PO ×3 (02:09→20:56)
[2024-07-14 04:30] LABS: Basophils % 0.1 %; Eosinophils # 0.4 10^3/uL (0.0-0.8); Eosinophils % 4.3 %; Hematocrit 26.6 % (37-53); Lymphocytes # 0.3 10^3/uL (0.8-4.8); Lymphocytes % 3.6 %; Mean Corpuscular Hemoglobin 33.2 pg (27-33); Mean Corpuscular Volume 103.9 fl (82-101); Mean Platelet Volume 10.7 fL (7.4-10.4); Monocytes # 0.4 10^3/uL (0.2-0.9); Monocytes % 4.6 %; Neutrophils # 7.83 10^3/uL (1.8-7.7); Neutrophils % 86.1 %; Nucleated Red Blood Cells % 0 %; Platelet Count 166 10^3/cmm (157-399); Red Blood Count 2.56 10^6/uL (3.85-5.65); Red Cell Distribution Width 22.2 % (12.1-15.1)
[2024-07-14 04:58] LABS: Alanine Aminotransferase 21 U/L (0-41); Alkaline Phosphatase 176 U/L (40-130); Anion Gap 15.8 (5-19); Aspartate Amino Transferase 24 U/L (0-40); Blood Urea Nitrogen 60 mg/dL (8-23); Calcium 8.3 mg/dL (8.5-10.5); Carbon Dioxide 27 mmol/L (22-29); Chloride 92 mmol/L (98-107); Globulin 2.7 g/dL (1.3-4.6); Glucose 176 mg/dL (65-115); Osmolality Calculated 293 mOsm/kg (285-295); Potassium 3.8 mmol/L (3.5-5.1); Sodium 131 mmol/L (136-145); Total Bilirubin 0.6 mg/dL (0.15-1.2); Total Protein 5.7 g/dL (6.6-8.7)
[2024-07-14 05:02] LABS: Creatinine Clr Calc Pharmacy 33.3774
[2024-07-14] MEDS: levothyroxine 100 mcg Tablet PO (05:44)
--- NOTE | 2024-07-14 06:49 | P.PN_ITS ---
Subjective 2 Subjective: no new complaints Medications: Reviewed: Yes Vitals/I&O/Wt Last Vital Signs Temp 98.5 F 07/14/24 04:00 Pulse 71 07/14/24 05:21 Resp 25 H 07/14/24 04:00 BP 110/71 07/14/24 04:00 Pulse Ox 97 07/14/24 04:00 O2 Del Method Room Air 07/14/24 04:00 O2 Flow Rate 0.5 07/08/24 09:29 07/13/24 07/13/24 07/14/24 14:59 22:59 06:59 Intake Total 240 / 240 240 / 480 Output Total 100 / 100 200 / 300 Balance 240 / 240 -100 / 140 40 / 180 Weight last 48 hrs Weight 130.3 kg Weight 127.4 kg Physical Exam 2 Narrative: more awake,, talking, responsive HEENT normocephalic atraumatic neck is supple lungs have improved air mvoement Heart irregular with systolic murmurs. Abdomen distended positive bowel sounds positive ascites. Extremities have bilateral edema 2+. Neuro -more awake and verbal, Dialysis access right IJ permacath. 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 Cardiac cirrhosis increased pulmonary hypertension, acute on chronic renal failure, hypothyroidism, gout, diabetes, A-fib. 1. Heart failure acute on chronic systolic and diastolic patient has a EF of 25 to 30% not able to tolerate Entresto. The patient has an ICD patient is currently in A-fib. 2. Acute on chronic renal failure likely from hypotension, cardiac disease and secondary liver disease. - likely he has hemodynamically mediated diseases with cardio hepatorenal syndrome. 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 Anemia hemoglobin is stable. Platelets relatively stable . 5. Hyponatremia likely from renal failure liver failure and heart failure. Slightly improved with dialysis 6. Diabetic control-patient has hypoglycemia. Can decrease insulin dose. Medications reviewed. The patient was seen and examined using audiovisual equipment with the aid of a nurse. Who examined the patient. The patient and his consent to hemodialysis and to telehealth. Unfortunately very poor prognosis. Plan See above Attestations 2 Medical Necessity Statement*: per medicinen Coding Level of Care Code Acute Code for Chg Fwd Diagnoses Acute kidney injury superimposed on CKD N17.9; N18.9
[2024-07-14] MEDS: pantoprazole DR 40 mg Tablet PO (07:59)
[2024-07-14] MEDS: b-complex-vitamin c Tablet 1 EACH PO (07:59)
[2024-07-14] MEDS: duloxetine 30 mg Capsule 90 MG PO (07:59)
[2024-07-14] MEDS: midodrine 5 mg TABLET 15 MG PO ×3 (07:59→20:55)
[2024-07-14] MEDS: metoprolol tartrate 25 mg Tablet 12.5 MG PO ×2 (07:59→17:28)
[2024-07-14] MEDS: allopurinol 100 mg Tablet PO (08:00)
[2024-07-14] MEDS: sennosides-docusate Tablet 1 TAB PO (08:00)
[2024-07-14] MEDS: aspirin 81 mg EC Tablet PO (08:00)
--- NOTE | 2024-07-14 10:04 | P.PN_ITS ---
Subjective 2 Subjective: Patient seems to be stable. Denies any chest pain. No fever. Still has no much urine output. Difficulty in getting up and moving around. Mostly stays in the bed. Medications: Medication Review Details: Current Medications Acetaminophen (Acetaminophen 500 Mg Tablet) 500 mg PO Q4H PRN PRN Reason: fever Last Admin: 07/14/24 02:09 Dose: 500 mg Albuterol/Ipratropium (Ipratropium-Albuterol 3 Ml Neb) 3 ml INHALATION Q6H PRN PRN Reason: SHORTNESS OF BREATH Allopurinol (Allopurinol 100 Mg Tablet) 100 mg PO DAILY [facility] Last Admin: 07/14/24 08:00 Dose: 100 mg Apixaban (Apixaban 5 Mg Tablet) 5 mg PO BID@0800,1999 [facility] Last Admin: 07/05/24 08:53 Dose: 5 mg Aspirin (Aspirin 81 Mg Ec Tablet) 81 mg PO DAILY [facility] Last Admin: 07/14/24 08:00 Dose: 81 mg Calcium Carbonate (Calcium Carbonate 500 Mg Chew Tablet) 500 mg PO Q4H PRN PRN Reason: INDIGESTION Last Admin: 07/09/24 18:20 Dose: 500 mg Duloxetine HCl (Duloxetine 30 Mg Capsule) 90 mg PO DAILY [facility] Last Admin: 07/14/24 07:59 Dose: 90 mg Ergocalciferol (Ergocalciferol (Vitamin D2) 50,000 Unit Capsule) 50,000 unit PO Q7D [facility] Last Admin: 07/13/24 10:58 Dose: 50,000 unit Glucagon (Glucagon 1 Mg/Ml Kit 1 Ml) 1 mg IM ONCE PRN; Protocol PRN Reason: Adult Acute Hypoglycemia Nursing Prot. Dextrose (D5w) 500 mls @ 0 mls/hr IV ONCE PRN; Protocol PRN Reason: Adult Acute Hypoglycemia Prot Dextrose (D10w) 125 mls @ 750 mls/hr IV PRN PRN; Protocol PRN Reason: Adult Acute Hypoglycemia Nursing Protocol Dextrose (D10w) 250 mls @ 1,000 mls/hr IV PRN PRN; Protocol PRN Reason: Adult Acute Hypoglycemia Nursing Protocol Sodium Chloride (Sodium Chloride 0.9%) 1,000 mls @ 0 mls/hr IV .Q0M PRN PRN Reason: hypotension or symptomatic Albumin Human (Albumin) 12.5 gm in 50 mls @ 60 mls/hr IV PRN PRN PRN Reason: Hypotension and/or symptomatic Last Infusion: 07/11/24 15:16 Dose: Infused Levothyroxine Sodium (Levothyroxine 100 Mcg Tablet) 100 mcg PO QAM [facility] Last Admin: 07/14/24 05:44 Dose: 100 mcg Metoprolol Tartrate (Metoprolol Tartrate 25 Mg Tablet) 12.5 mg PO BID [facility] Last Admin: 07/14/24 07:59 Dose: 12.5 mg Midodrine (Midodrine 5 Mg Tablet) 15 mg PO TID [facility] Last Admin: 07/14/24 07:59 Dose: 15 mg Multivitamins (Q-Qbnyqkv-Cjtbqjr C Tablet) 1 each PO DAILY [facility] Last Admin: 07/14/24 07:59 Dose: 1 each Ondansetron HCl (Ondansetron 2 Mg/Ml Sdv 2 Ml) 4 mg IVP Q6H PRN PRN Reason: NAUSEA AND VOMITING Pantoprazole Sodium (Pantoprazole Dr 40 Mg Tablet) 40 mg PO DAILY [facility] Last Admin: 07/14/24 07:59 Dose: 40 mg Senna/Docusate Sodium (Sennosides-Docusate Tablet) 1 tab PO DAILY [facility] Last Admin: 07/14/24 08:00 Dose: 1 tab Tamsulosin HCl (Tamsulosin 0.4 Mg Capsule) 0.4 mg PO QPM [facility] Last Admin: 07/13/24 18:11 Dose: 0.4 mg Vitals/I&O/Wt Last Vital Signs Temp 97.6 F 07/14/24 07:10 Pulse 78 07/14/24 07:10 Resp 15 07/14/24 07:10 BP 124/59 07/14/24 07:10 Pulse Ox 98 07/14/24 07:10 O2 Del Method Room Air 07/14/24 07:10 O2 Flow Rate 0.5 07/08/24 09:29 07/13/24 07/14/24 07/14/24 22:59 06:59 14:59 Intake Total 480 / 720 Output Total 100 / 100 200 / 300 Balance -100 / 140 280 / 420 Weight last 48 hrs Weight 287 lb 4.197 oz Weight 280 lb 13.903 oz Physical Exam 2 Narrative: GENERAL: The patient is alert and oriented times three. Not in any acute distress. Chronically ill looking. HEENT: Moderate pallor, no icterus or lymphadenopathy.Oral cavity: There are no mucous membrane lesions. NECK: Trachea appears to be central. No masses noted. No JVD or thyromegaly appreciated. RESPIRATORY: Chest is symmetrical. No intercostals muscle retraction or any accessory muscle activation. There is no chest wall tenderness. The breath sounds are diminished in the bases. Dependent edema on the posterior aspect of the lower chest. BREASTS: Deferred. HEART: The aortic valve opening and closing sounds are normal. Variable intensity. Systolic murmur grade 3 or 6 in the mitral area. No diastolic murmurs. ABDOMEN: Ascites present. Normal bowel sounds : Deferred. RECTAL: Deferred. LYMPHATIC: No lymphadenopathy noted in the neck. EXTREMITIES: 2+ edema both lower extremities. No cyanosis. MUSCULOSKELETAL: No acute joint deformities or swelling SKIN: There are no significant rashes or ecchymosis NEUROPSYCHIATRIC: The patient is alert and oriented x3. Pleasant but ill looking. No focal motor deficits. Urinary Catheter Management: Vazquez: Cath Placed During This Visit: yes Reason for Continuing Indwelling Catheter: Acute Urinary Retention or Obstruction Urinary Catheter Date of Insertion: 07/05/24 Urinary Catheter Time of Insertion: 18:58 Data 07/15/24 08:23 07/15/24 08:23 Other Labs: Laboratory Last Values WBC 9.10 10^3/uL (3.29-11.43) 07/14/24 03:55 RBC 2.56 10^6/uL (3.85-5.65) L 07/14/24 03:55 Hgb 8.50 g/dL (11.27-16.99) L 07/14/24 03:55 Hct 26.6 % (37-53) L 07/14/24 03:55 MCV 103.9 fl (82-101) H 07/14/24 03:55 MCH 33.2 pg (27-33) H 07/14/24 03:55 MCHC 32.0 g/dL (30-55) 07/14/24 03:55 RDW 22.2 % (12.1-15.1) H 07/14/24 03:55 Plt Count 166 10^3/cmm (157-399) 07/14/24 03:55 MPV 10.7 fL (7.4-10.4) H 07/14/24 03:55 Neut % (Auto) 86.1 % 07/14/24 03:55 Lymph % (Auto) 3.6 % 07/14/24 03:55 [place] % (Auto) 4.6 % 07/14/24 03:55 Eos % (Auto) 4.3 % 07/14/24 03:55 Baso % (Auto) 0.1 % 07/14/24 03:55 Neut # (Auto) 7.83 10^3/uL (1.8-7.7) H 07/14/24 03:55 Lymph # (Auto) 0.3 10^3/uL (0.8-4.8) L 07/14/24 03:55 [place] # (Auto) 0.4 10^3/uL (0.2-0.9) 07/14/24 03:55 Eos # (Auto) 0.4 10^3/uL (0.0-0.8) 07/14/24 03:55 Baso # (Auto) 0.0 10^3/uL (0.0-0.1) 07/14/24 03:55 Nucleated RBC % (auto) 0 % 07/14/24 03:55 Nucleated RBCs # 0.0 /100WBC 07/14/24 03:55 PT 16.60 SECONDS (12.1-14.9) H 07/06/24 02:47 INR 1.29 (0.8-1.2) H 07/06/24 02:47 Sodium 131 mmol/L (136-145) L 07/14/24 03:55 Potassium 3.8 mmol/L (3.5-5.1) 07/14/24 03:55 Chloride 92 mmol/L (98-107) L 07/14/24 03:55 Carbon Dioxide 27 mmol/L (22-29) 07/14/24 03:55 Anion Gap 15.8 (5-19) 07/14/24 03:55 BUN 60 mg/dL (8-23) H 07/14/24 03:55 Creatinine 2.8 mg/dL (0.7-1.2) H 07/14/24 03:55 GFR Calculation Not Reportable 07/14/24 03:55 Glucose 176 mg/dL (65-115) H 07/14/24 03:55 POC Glucose 226 mg/dL (70-110) H 07/11/24 17:08 Estimat Average Glucose 97 07/08/24 03:33 Hemoglobin A1c 5.0 % (4.0-6.0) 07/08/24 03:33 Calculated Osmolality 293 mOsm/kg (285-295) 07/14/24 03:55 Lactic Acid 1.3 mmol/L (0.5-2.2) 07/10/24 04:10 Calcium 8.3 mg/dL (8.5-10.5) L 07/14/24 03:55 Magnesium 2.1 mg/dL (1.7-2.3) 07/11/24 04:44 Iron 24 ug/dL (59-158) L 07/08/24 03:33 TIBC 199 mcg/dl 07/08/24 03:33 % Saturation 12.0 % (20-50) L 07/08/24 03:33 Unsat Iron Binding 175 ug/dL (112-347) 07/08/24 03:33 Total Bilirubin 0.6 mg/dL (0.15-1.2) 07/14/24 03:55 AST 24 U/L (0-40) 07/14/24 03:55 ALT 21 U/L (0-41) 07/14/24 03:55 Alkaline Phosphatase 176 U/L (40-130) H 07/14/24 03:55 Total Protein 5.7 g/dL (6.6-8.7) L 07/14/24 03:55 Albumin 3.0 g/dL (3.5-5.2) L 07/14/24 03:55 Globulin 2.7 g/dL (1.3-4.6) 07/14/24 03:55 Vitamin B12 1051 pg/mL (232-1245) 07/08/24 03:33 25-OH Vitamin D Total 10 ng/mL (30-100) L 07/06/24 02:47 Folate 7.5 ng/mL (4.5-32.2) 07/09/24 04:37 Procalcitonin 0.39 ng/mL (0-0.5) 07/08/24 03:33 TSH 9.76 uIU/mL (0.27-4.20) H 07/11/24 04:44 Free T4 0.83 ng/dL (0.82-1.77) 07/11/24 04:44 Free T3 1.2 PG/ML (2.0-4.4) L 07/08/24 03:33 PTH Intact 177.1 pg/mL (15-65) H 07/06/24 02:47 Calcium (PTH Intact) 8.7 mg/dL (8.5-10.5) 07/06/24 02:47 Random Cortisol 22.67 ug/dL (2.47-19.5) H 07/06/24 02:47 ABHIJEET Screen Negative (NEGATIVE) 07/05/24 04:02 Hep Bs Antigen Non-reactive (Nonreactive) 07/05/24 17:54 Hep Bs Antibody < 3.5 (11.5-1000) L 07/05/24 17:54 Hepatitis C Antibody Non-reactive (Nonreactive) 07/05/24 17:54 A&P Assessment and plan (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 Heart failure he is somewhat compensated at this time. (2) Ischemic cardiomyopathy: Patient is LV ejection fraction of 25 to 30%. Apparently the patient could not tolerate Entresto/hydralazine. (3) Atherosclerotic heart disease of [place] coronary artery without angina pectoris: Seems to be stable with no chest pain. Qualifiers: [place] vs. transplanted heart: [place] heart Qualified Code(s): I25.10 - Atherosclerotic heart disease of [place] coronary artery without angina pectoris (4) Hx of aortic valve replacement: Valve function appears to be appropriate. May continue on the current management. (5) Decompensated hepatic cirrhosis: Continue the current management. Patient with MIRANDA. Decided not to be a candidate for TIPS. Continue on the current measures (6) Ascites: Moderate to large ascites. Patient seems to be managing okay at this time. Qualifiers: Ascites type: other type Qualified Code(s): R18.8 - Other ascites (7) Microcytic anemia: Hemoglobin seems to be stable. May consider discontinuing aspirin and keep on Eliquis (8) ICD (implantable cardioverter-defibrillator) in place: Found to be functioning okay. Continue on the current management. (9) Atrial fibrillation: Patient is mostly in the paced rhythm. Patient is on oral anticoagulation. Qualifiers: Atrial fibrillation type: permanent Qualified Code(s): I48.21 - Permanent atrial fibrillation (10) Bilateral carotid artery stenosis: Stable with no specific symptoms. (11) Acute kidney injury superimposed on CKD: On intermittent hemodialysis requiring albumin infusion and midodrine to maintain adequate blood pressure Plan Awaiting transfer to the [facility] in [place]. Continue on the current management. Discontinue aspirin if it is okay with the primary attending. Attestations 2 Medical Necessity Statement*: Deferred to the primary Coding Level of Care Code Acute Code for Chg Fwd Diagnoses Biventricular failure I50.82 Ischemic cardiomyopathy I25.5 Atherosclerosis of [place] coronary artery of [place] heart without angina pectoris I25.10 [place] vs. transplanted heart: [place] heart Hx of aortic valve replacement Z95.2 Decompensated hepatic cirrhosis K72.90; K74.60 Other ascites R18.8 Ascites type: other type Microcytic anemia D50.9 ICD (implantable cardioverter-defibrillator) in place Z95.810 Permanent atrial fibrillation I48.21 Atrial fibrillation type: permanent Bilateral carotid artery stenosis I65.23 Acute kidney injury superimposed on CKD N17.9; N18.9
--- NOTE | 2024-07-14 12:23 | PM.PN ---
Subjective Subjective: No new complaints. States he is feeling comfortably in bed without any difficulty in breathing. Denies any nausea or vomiting. Remains on room air and hemodynamically stable. Vitals/I&O/Wt Last Vital Signs Temp 97.6 F 07/14/24 11:00 Pulse 74 07/14/24 11:00 Resp 17 07/14/24 11:00 BP 116/60 07/14/24 11:00 Pulse Ox 97 07/14/24 11:00 O2 Del Method Room Air 07/14/24 11:00 O2 Flow Rate 0.5 07/08/24 09:29 07/13/24 07/14/24 07/14/24 22:59 06:59 14:59 Intake Total 480 / 720 360 / 360 Output Total 100 / 100 200 / 300 Balance -100 / 140 280 / 420 360 / 360 Weight last 48 hrs Weight 130.3 kg Weight 127.4 kg Physical Exam Narrative: General: AO x 3, chronically sick appearing HEENT: PERRLA, pupils bilaterally equal and reactive Chest: Bilateral bronchial breath sounds all over lung bray with occasional rhonchi decreased air entry bilateral lower zone, no monitor of oxygen supplementation CVS: S1-S2 irregularly irregular, pansystolic murmur at apex rating to anterior axillary line, pansystolic murmur at fourth intercostal space left retrosternal, no tachycardia, no gallops, no rubs Abdomen: Soft, nontender, no organomegaly, bowel sounds present Neuro: No focal deficits, no facial deformity, power 5/5 in all limbs Urinary Catheter Management: Vazquez: Cath Placed During This Visit: yes Reason for Continuing Indwelling Catheter: Acute Urinary Retention or Obstruction Urinary Catheter Date of Insertion: 07/05/24 Urinary Catheter Time of Insertion: 18:58 Data 07/14/24 03:55 07/14/24 03:55 A&P Assessment and plan (1) Shock: Cardiogenic in nature. Ischemic cardiomyopathy with decompensated cardiogenic shock along with multiorgan dysfunction in setting of hepatocardiorenal syndrome with renal failure on hemodialysis. Patient not deemed a candidate for TIPS as well as LVAD as per [facility]. Resolved for now. Blood pressures have maintained off pressors for now. Dobutamine drip discontinued as does not seem to be helping. Continue with oral midodrine 15 mg 3 times daily. Monitor urine output. Fluid restriction to less than 1500 cc. (2) Biventricular failure: Patient could not tolerate guideline directed congestive heart failure medications including Imdur, Entresto, CEZAR or ARB because of drop in blood pressure. Patient did not respond to dobutamine. Restarted low-dose beta-shailesh with metoprolol 12.5 mg twice daily. (3) Cardiorenal syndrome with renal failure: Appreciate CMP. Appreciate nephrology recommendations. As per nephrology patient would most likely not tolerate outpatient hemodialysis. As per goals of care discussion family would want to continue with dialysis even if it means patient's blood pressure dropping. Monitor urine output. For now plan to dialysis only when needed. Case management trying to arrange for chair time as an outpatient though patient has been declined by multiple dialysis center as he is deemed unstable. (4) Multi-organ system dysfunction: Along with decompensated hepatic cirrhosis and acute renal failure requiring hemodialysis (5) Hyponatremia: Most likely in setting of congestive heart failure. Monitor BMP daily. (6) Hypoglycemia: Blood sugars have remained stable. Continue with hypoglycemia protocol. If needed will add glucagon. Hypoglycemia protocol. (7) Ischemic cardiomyopathy: Last echocardiogram shows an EF of 20% with global LV hypokinesis, grade 4 diastolic dysfunction, possibility of subvalvular equal genic oscillating serpentine structure which could be chordae tendineae versus possible vegetation near mitral valve, bioprosthetic aortic valve. Continue with home dose of aspirin (8) Goals of care, counseling/discussion: Had a detailed goals of care discussion with the patient and patient's at bedside. We discussed unfortunately patient has decompensated cardiogenic shock with signs of multiorgan dysfunction and he has not been deemed a candidate for LVAD or TIPS procedure. Discussed that unfortunately currently he is dependent on Levophed and dobutamine drip which is not working well for him as well as he remains an uric with worsening of renal function requiring hemodialysis. As per family and patient quality of life is more important than quantity of life and they would not want to live like this. Discussed about possible comfort measures. would consider hospice but would want more details before making a decision. Case management alerted. Discussed about CODE STATUS. Patient and would want to change the CODE STATUS to DNR/DNI. 07/10: Had further goals of care discussion with both patient and at bedside. We discussed that unfortunately dobutamine drip is not helping again hence we will go ahead and discontinue dobutamine drip and Bumex. She verbalized understanding and is agreeable. Discussed the unfortunate situation in which patient has decompensated cardiogenic shock with multiorgan dysfunction and has been deemed not a candidate for LVAD or TIPS procedure. We discussed unfortunately at this time we have exhausted all the medical and surgical options. Discussed options going forward would be to continue dialysis intermittently if and when needed for quality of life though that can mean recurrent hypotension and recurrent admissions or even versus transition to hospice. states she has spoken to multiple children and patient's brother and they want to continue doing everything they can to prolong his life. Patient is agreeable. Wants to change CODE STATUS to full code. For now we will try to set up outpatient dialysis as possible. No hospice for now. CODE STATUS changed to full code. Will hold off on using dobutamine drip as it does not seem to be helping and patient remains oliguric on the medication. Continue with oral midodrine. 07/11: As per request of patient and family outpatient hemodialysis is been trying to worked up. Patient has been declined by [facility] as they deem him to be unstable for outpatient hemodialysis. Family wants patient to have possible dialysis at [facility]. Also requesting to see he can transfer to LTAC. We did discuss most likely patient is not a candidate for LTAC as he does not have any acute condition rather he has chronic problems for which he needs outpatient possible solution versus hospice. Discussed that we will try at dialysis center at [place] as well. 07/13: Today patient requested to be discharged home. He states he wants to follow-up with outpatient environmental health and safety manager who he had seen before at [facility]. We discussed given his goals of care as of now he still has not been able to set up outpatient dialysis for him and he might need dialysis in 4 to 5 days depending on the lab work or for difficulty in breathing. Discussed because of concerns for CKD he can develop hyperkalemia which can cause arrhythmia which in fact can cause further cardiogenic shock or even . Patient verbalizes understanding but states it is important for him to go home and meet with To see if something can be done to save his life. We discussed most likely if he is discharged today he needs to understand the risks of even as he still does not have a dialysis place set up for him and as he still has the goals of being alive no matter what. Discussed he might also lose the place at LTAC as we have been told they might be able to accept him but are pending to hear back from insurance. Patient at first states he would like to go home understanding that he might get sick again or might not live but later changed his mind stating that he would rather stay over the weekend to see if he can get a bed at LTAC. (9) Hemoperitoneum: Repeat abdominal ultrasound from 07/12 shows moderate to large ascites. Can plan for possible paracentesis in a slow manner while monitoring his vitals and may be replacing with albumin for palliative care as it can cause repeat of hemoperitoneum which can lead to anemia or worsening of hemodynamics leading to cardiogenic shock or worsening of renal functions. (10) Hypothyroidism: Continue with IV levothyroxine. Recheck thyroid profile in AM. (11) CAD (coronary artery disease): Qualifiers: Coronary Disease-Associated Artery/Lesion type: [place] artery [place] vs. transplanted heart: [place] heart Associated angina: without angina Qualified Code(s): I25.10 - Atherosclerotic heart disease of [place] coronary artery without angina pectoris (12) Chronic systolic (congestive) heart failure: (13) H/O aortic root repair: (14) Chronic anticoagulation: Currently on hold given hemoperitoneum. Hemoglobin so far stable. (15) Diabetes: Hemoglobin stable now. Monitor for hypoglycemia as above. (16) Decompensated hepatic cirrhosis: Deemed not a candidate for TIPS procedure at [facility] (17) ICD (implantable cardioverter-defibrillator) in place: Plan Discharge plan: Continue with current treatment with metoprolol 12.5 mg twice daily. Reassess for possible dialysis within next 48 hours. Monitor BMP daily. Patient has slightly worsening hyponatremia with sodium 131 today. Patient for now has not tolerated dialysis without albumin. Awaiting further assessment of dialysis chair time as an outpatient versus transfer to LTAC. Patient is agreeable to stay in the hospital for now till he hears back from LTAC. Analgesia: Morphine 2 mg every 4 hours as needed Glycemic control: Hypoglycemia protocol Nutrition: Renal dialysis diet CODE STATUS: CODE STATUS changed back to full code by patient on 07/10. PUD prophylaxis: Protonix DVT prophylaxis: Not on anticoagulation given concerns for recent hemoperitoneum. Eliquis on hold. Severely guarded prognosis This documentation was created by [employer] police communications dispatcher software. Every effort was made to ensure accuracy of police communications dispatcher. Any obvious errors or omissions should be clarified with the author of the document. Attestations Medical Necessity Statement*: Requires further hospitalization while safe for outpatient discharge plan is sought as per patient's goals of care in setting of ischemic cardiomyopathy with multiorgan dysfunction with cardiogenic shock in a patient who is deemed not a candidate for LVAD or TIPS Diagnoses Shock R57.9 Biventricular failure I50.82 Cardiorenal syndrome with renal failure I13.10 Multi-organ system dysfunction Hyponatremia E87.1 Hypoglycemia E16.2 Ischemic cardiomyopathy I25.5 Goals of care, counseling/discussion Z71.89 Hemoperitoneum K66.1 Hypothyroidism E03.9 Coronary artery disease involving [place] coronary artery of [place] heart without angina pectoris I25.10 Coronary Disease-Associated Artery/Lesion type: [place] artery [place] vs. transplanted heart: [place] heart Associated angina: without angina Chronic systolic (congestive) heart failure I50.22 H/O aortic root repair Z98.890 Chronic anticoagulation Z79.01 Diabetes E11.9 Decompensated hepatic cirrhosis K72.90; K74.60 ICD (implantable cardioverter-defibrillator) in place Z95.810
[2024-07-14] MEDS: tamsulosin 0.4 mg Capsule PO (17:29)
[2024-07-15] VITALS (11 sets, daily range): BP systolic 99–124; BP diastolic 52–73; PULSE 69–77; RESP 13–24; TEMP 36.4–37; O2SAT 90–97
[2024-07-15] MEDS: acetaminophen 500 mg Tablet PO (05:13)
[2024-07-15] MEDS: levothyroxine 100 mcg Tablet PO (05:13)
[2024-07-15 09:10] LABS: Basophils % 0.2 %; Eosinophils # 0.3 10^3/uL (0.0-0.8); Hematocrit 27.9 % (37-53); Lymphocytes # 0.3 10^3/uL (0.8-4.8); Mean Corpuscular HGB Conc 32.3 g/dL (30-55); Mean Corpuscular Hemoglobin 33.5 pg (27-33); Mean Corpuscular Volume 103.7 fl (82-101); Mean Platelet Volume 10.2 fL (7.4-10.4); Monocytes # 0.4 10^3/uL (0.2-0.9); Monocytes % 4.6 %; Neutrophils % 86.8 %; Nucleated Red Blood Cells % 0 %; Platelet Count 167 10^3/cmm (157-399); Red Blood Count 2.69 10^6/uL (3.85-5.65); Red Cell Distribution Width 22.7 % (12.1-15.1)
[2024-07-15 09:38] LABS: Alanine Aminotransferase 21 U/L (0-41); Albumin Level 3.2 g/dL (3.5-5.2); Alkaline Phosphatase 183 U/L (40-130); Aspartate Amino Transferase 19 U/L (0-40); Blood Urea Nitrogen 66 mg/dL (8-23); Calcium 8.4 mg/dL (8.5-10.5); Carbon Dioxide 26 mmol/L (22-29); Chloride 94 mmol/L (98-107); Creatinine Clr Calc Pharmacy 30.3823; Globulin 2.8 g/dL (1.3-4.6); Glucose 148 mg/dL (65-115); Osmolality Calculated 300 mOsm/kg (285-295); Sodium 134 mmol/L (136-145); Total Bilirubin 0.6 mg/dL (0.15-1.2)
[2024-07-15] MEDS: b-complex-vitamin c Tablet 1 EACH PO (09:45)
[2024-07-15] MEDS: metoprolol tartrate 25 mg Tablet 12.5 MG PO ×2 (09:46→18:05)
[2024-07-15] MEDS: aspirin 81 mg EC Tablet PO (09:46)
[2024-07-15] MEDS: midodrine 5 mg TABLET 15 MG PO ×3 (09:46→20:17)
[2024-07-15] MEDS: pantoprazole DR 40 mg Tablet PO (09:46)
[2024-07-15] MEDS: duloxetine 30 mg Capsule 90 MG PO (09:46)
[2024-07-15] MEDS: allopurinol 100 mg Tablet PO (09:46)
[2024-07-15] MEDS: sennosides-docusate Tablet 1 TAB PO (09:46)
[2024-07-15] MEDS: FUROsemide 10 mg/mL SDV 10mL 60 MG IVP (12:40)
--- NOTE | 2024-07-15 14:26 | P.PN_ITS ---
Subjective 2 Subjective: Patient sitting in the chair, comfortable Medications: Reviewed: Yes Vitals/I&O/Wt Last Vital Signs Temp 98.6 F 07/15/24 12:04 Pulse 70 07/15/24 12:04 Resp 19 H 07/15/24 12:04 BP 104/61 07/15/24 12:04 Pulse Ox 90 07/15/24 12:04 O2 Del Method Room Air 07/15/24 07:48 O2 Flow Rate 0.5 07/08/24 09:29 07/14/24 07/15/24 07/15/24 22:59 06:59 14:59 Intake Total 238 / 838 118 / 118 Output Total 175 / 175 Balance 238 / 838 -175 / 663 118 / 118 Weight last 48 hrs Weight 129.3 kg Weight 130.3 kg Physical Exam 2 Narrative: Irregular, no distress On room air HEENT Has ascites No pedal edema S1-S2 regular rate and rhythm report Lungs clear. 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 Cardiac cirrhosis increased pulmonary hypertension, acute on chronic renal failure, hypothyroidism, gout, diabetes, A-fib. 1. Heart failure acute on chronic systolic and diastolic patient has a EF of 25 to 30% not able to tolerate Entresto. The patient has an ICD patient is currently in A-fib. 2. Acute on chronic renal failure likely from hypotension, cardiac disease and secondary liver disease. - likely he has hemodynamically mediated diseases with cardio hepatorenal syndrome. -renal ultrasound -reveals ascites, no hydronephrosis -Status post hemodialysis , but ,BP dropped with hD and required IV albumin , , -Repeatedly discussed with patient and regarding overall poor prognosis and patient unable to to tolerate dialysis -Also given underlying advanced liver failure, offering hemodialysis would not improve his overall survival Not a correction HD candidate , discussed possible palliative care /conservative management would be more appropriate Today patient's states that they understand overall poor prognosis and will make a decision regarding possible conservative management/hospice 3. Anemia hemoglobin is stable. Platelets relatively stable . 5. Hyponatremia likely from renal failure liver failure and heart failure. Slightly improved with dialysis 6. Diabetic control-patient has hypoglycemia. Can decrease insulin dose. Medications reviewed. The patient was seen and examined using audiovisual equipment with the aid of a nurse. Who examined the patient. The patient and his consent to hemodialysis and to telehealth. Unfortunately very poor prognosis. Plan See above Attestations 2 Medical Necessity Statement*: per medicine Coding Level of Care Code Acute Code for Chg Fwd Diagnoses Acute kidney injury superimposed on CKD N17.9; N18.9
--- NOTE | 2024-07-15 16:01 | PC.SOCIAL ---
IMM updated IMM dated and initialed, copy given to patient and placed in chart.
--- NOTE | 2024-07-15 16:50 | P.PN_ITS ---
Subjective 2 Subjective: Patient was seen this morning, he is alert oriented x 3, following all commands, is at bedside, -I had a detailed discussion with the ethan sarah and his about his overall goals of care -Abhay tells me that he wants to really speak to Dr. Gudino, as he is the only physician that has spoken to him in a way that he understands the risk going on with him, and he really trusts his opinion -Abhay tells me that he understands his underlying condition is terminal, but he wants to continue to fight, he tells me that I do not know when I am going to , but however long I have I am going to do everything in my power to keep going, and he wants everything possible to be done as he is not ready to -I asked Abhay what he understood stand s from his current hospitalization, he tells me that he has had multiple physicians, multiple hospitals tell him what is going on with his present condition, but he has trouble grasping it as there is a lot of moving pieces -I had a detailed discussion with him ab out his present condition, his underlying cardiomyopathy, EF of 20%, that he is not a candidate for LVAD, he has resulting multiorgan dysfunction, acute renal failure, fluid overload, issues with taking fluid off of him and hypotension and his overall deconditioned state, with issues of shock, shortness of breath, his underlying liver cirrhosis, -We discussed that he has been up to [facility], for his liver cirrhosis, liver failure, he was not deemed a candidate for TIPS -For his heart failure, he was not deeme d a candidate for LVAD -He was able to understand this, has mad e peace with it he tells me -He wanted me to understand was despite knowing all this he is still not ready to give up, he wants to continue to fight, he wants everything to be done, he wants to continue dialysis, he wants to still explore more options that are available to him, he feels that doctors Dr. Gudino will be able to provide some solutions for him, I did also have a discussion with him that-the significant issues that we are having is trying to manage his blood pressures on dialysis, issues with shock, issues with anemia, persistent fluid overload, respiratory failure, this is difficult to do given his underlying EF of 20%, his CKD, CHF, his liver cirrhosis and his overall deconditioned state -Were are having issues on having dialys is centers accept him for outpatient dialysis due to his episodes of hypotension, and as he is not a good candidate for long-term dialysis ? My worry is that if I can get him placed to a long-term care facility, if I cannot get him dialysis as outpatient set up, what other options are available to him? Hospice or go home and his present condition ? He declines hospice -My worry about him going home is is merlin t he has a high risk of morbidity and mortality, reoccurring hospitalization, shock, anemia, fluid overload, respiratory failure, cardiac arrest, high risk of suffering -He tells me that it is his desire to go home if he cant be placed in a long- term care facility, or if outpatient dialysis cannot be set up, and he he has made peace with this -And if he does have a complication such as above, he still wants everything to be done, he wants to continue to fight, he is not ready to , he understands the morbidity of mortality about going home with his present condition, he understands the suffering, he accepts and understands this, he understands the significance of this, but still wants to continue to fight -He adamantly declines hospice -He tells me that it his wish to drive [address] with his , who has retired, to look at the fall colors, to put in a pool in his backyard of his house, house which he remodeled and put a lot of time into, he still wants to live life, he understands that his condition is terminal, but he is not ready to give up, and understands the severity of his present condition, and morbidity or mortality associate with his present and future condition, and suffering associated with his present and future condition -We discussed the plan for today is to xavier barnett with case management to see where his processes in terms of placement to long-term care facility, about the process about his dialysis, will continue to monitor him here in the hospital Vitals/I&O/Wt Last Vital Signs Temp 98.6 F 07/15/24 12:04 Pulse 77 07/15/24 16:41 Resp 22 H 07/15/24 16:41 BP 118/68 07/15/24 16:41 Pulse Ox 94 07/15/24 16:41 O2 Del Method Room Air 07/15/24 07:48 O2 Flow Rate 0.5 07/08/24 09:29 07/15/24 07/15/24 07/15/24 06:59 14:59 22:59 Intake Total 118 / 118 Output Total 175 / 175 Balance -175 / 663 118 / 118 Weight last 48 hrs Weight 129.3 kg Weight 130.3 kg Physical Exam 2 Const: COMMON NORMALS: no acute distress and patient oriented x3 Resp: COMMON NORMALS: normal respiratory effort, No retractions, No use of accessory muscles and clear to auscultation bilaterally AUSCULTATION: clear to auscultation bilaterally Cardio: COMMON NORMALS: regular rate, regular rhythm, S1 normal heart sound present and S2 normal heart sound present RATE: regular rate RHYTHM: r egular rhythm HEART SOUNDS: S1 normal heart sound present and S2 normal heart sound present GI: COMMON NORMALS: Normal to inspection, nondistended, normoactive bowel sounds present and non-tender Extremity: NARRATIVE EXTREMITY EXAM: 1+ edema Neuro: COMMON NORMALS: patient oriented x3 Psych: COMMON NORMALS: mental status grossly normal Urinary Catheter Management: Vazquez: Cath Placed During This Visit: yes Reason for Continuing Indwelling Catheter: Acute Urinary Retention or Obstruction Urinary Catheter Date of Insertion: 07/05/24 Urinary Catheter Time of Insertion: 18:58 Data 07/15/24 08:23 07/15/24 08:23 A&P Assessment and plan (1) Acute kidney injury superimposed on CKD: - Concerns for hypotension, during hemodialysis -Overall prognosis is poor -Has declined palliative care (2) Shock: Cardiogenic shock, hepatic cardiorenal syndrome Ischemic cardiomyopathy with decompensated cardiogenic shock along with multiorgan dysfunction in setting of hepatocardiorenal syndrome with renal failure on hemodialysis. Patient not deemed a candidate for TIPS as well as LVAD as per [facility]. Continue with oral midodrine 15 mg 3 times daily. Monitor urine output. Fluid restriction to less than 1500 cc. (3) Biventricular failure: Patient could not tolerate guideline directed congestive heart failure medications including Imdur, Entresto, CEZAR or ARB because of drop in blood pressure. Patient did not respond to dobutamine. Restarted low-dose beta-shailesh with metoprolol 12.5 mg twice daily. (4) Cardiorenal syndrome with renal failure: as above (5) Multi-organ system dysfunction: Along with decompensated hepatic cirrhosis and acute renal failure requiring hemodialysis (6) Hyponatremia: monitor (7) Hypoglycemia: monitor (8) Ischemic cardiomyopathy: Last echocardiogram shows an EF of 20% with global LV hypokinesis, grade 4 diastolic dysfunction, possibility of subvalvular equal genic oscillating serpentine structure which could be chordae tendineae versus possible vegetation near mitral valve, bioprosthetic aortic valve. (9) Goals of care, counseling/discussion: (10) Hemoperitoneum: (11) Hypothyroidism: Continue with levothyroxine. (12) CAD (coronary artery disease): Qualifiers: Coronary Disease-Associated Artery/Lesion type: [place] artery [place] vs. transplanted heart: [place] heart Associated angina: without angina Qualified Code(s): I25.10 - Atherosclerotic heart disease of [place] coronary artery without angina pectoris (13) Chronic systolic (congestive) heart failure: (14) H/O aortic root repair: (15) Chronic anticoagulation: eliquis (16) Diabetes: Hemoglobin stable now. Monitor for hypoglycemia as above. (17) Decompensated hepatic cirrhosis: Deemed not a candidate for TIPS procedure at [facility] (18) ICD (implantable cardioverter-defibrillator) in place: Plan - Goals of care discussion -Await case management discussion about long-term care facility placement -Overall prognosis poor Attestations 2 Medical Necessity Statement*: Patient requires hospitalization, for cardiogenic shock Diagnoses Acute kidney injury superimposed on CKD N17.9; N18.9 Shock R57.9 Biventricular failure I50.82 Cardiorenal syndrome with renal failure I13.10 Multi-organ system dysfunction Hyponatremia E87.1 Hypoglycemia E16.2 Ischemic cardiomyopathy I25.5 Goals of care, counseling/discussion Z71.89 Hemoperitoneum K66.1 Hypothyroidism E03.9 Coronary artery disease involving [place] coronary artery of [place] heart without angina pectoris I25.10 Coronary Disease-Associated Artery/Lesion type: [place] artery [place] vs. transplanted heart: [place] heart Associated angina: without angina Chronic systolic (congestive) heart failure I50.22 H/O aortic root repair Z98.890 Chronic anticoagulation Z79.01 Diabetes E11.9 Decompensated hepatic cirrhosis K72.90; K74.60 ICD (implantable cardioverter-defibrillator) in place Z95.810
--- NOTE | 2024-07-15 17:32 | P.PN_ITS ---
Subjective 2 Subjective: Patient is feeling okay. The urine output seems to be slightly better than yesterday. Denies any chest pain. No unusual shortness of breath. Continues to have difficulty in ambulation. Had minimal hematuria in the urinary catheter Medications: Medication Review Details: Current Medications Acetaminophen (Acetaminophen 500 Mg Tablet) 500 mg PO Q4H PRN PRN Reason: fever Last Admin: 07/15/24 05:13 Dose: 500 mg Albuterol/Ipratropium (Ipratropium-Albuterol 3 Ml Neb) 3 ml INHALATION Q6H PRN PRN Reason: SHORTNESS OF BREATH Allopurinol (Allopurinol 100 Mg Tablet) 100 mg PO DAILY [facility] Last Admin: 07/15/24 09:46 Dose: 100 mg Apixaban (Apixaban 5 Mg Tablet) 5 mg PO BID@0800,1999 [facility] Last Admin: 07/05/24 08:53 Dose: 5 mg Calcium Carbonate (Calcium Carbonate 500 Mg Chew Tablet) 500 mg PO Q4H PRN PRN Reason: INDIGESTION Last Admin: 07/09/24 18:20 Dose: 500 mg Duloxetine HCl (Duloxetine 30 Mg Capsule) 90 mg PO DAILY [facility] Last Admin: 07/15/24 09:46 Dose: 90 mg Ergocalciferol (Ergocalciferol (Vitamin D2) 50,000 Unit Capsule) 50,000 unit PO Q7D [facility] Last Admin: 07/13/24 10:58 Dose: 50,000 unit Glucagon (Glucagon 1 Mg/Ml Kit 1 Ml) 1 mg IM ONCE PRN; Protocol PRN Reason: Adult Acute Hypoglycemia Nursing Prot. Dextrose (D5w) 500 mls @ 0 mls/hr IV ONCE PRN; Protocol PRN Reason: Adult Acute Hypoglycemia Prot Dextrose (D10w) 125 mls @ 750 mls/hr IV PRN PRN; Protocol PRN Reason: Adult Acute Hypoglycemia Nursing Protocol Dextrose (D10w) 250 mls @ 1,000 mls/hr IV PRN PRN; Protocol PRN Reason: Adult Acute Hypoglycemia Nursing Protocol Sodium Chloride (Sodium Chloride 0.9%) 1,000 mls @ 0 mls/hr IV .Q0M PRN PRN Reason: hypotension or symptomatic Albumin Human (Albumin) 12.5 gm in 50 mls @ 60 mls/hr IV PRN PRN PRN Reason: Hypotension and/or symptomatic Last Infusion: 07/11/24 15:16 Dose: Infused Levothyroxine Sodium (Levothyroxine 100 Mcg Tablet) 100 mcg PO QAM [facility] Last Admin: 07/15/24 05:13 Dose: 100 mcg Metoprolol Tartrate (Metoprolol Tartrate 25 Mg Tablet) 12.5 mg PO BID [facility] Last Admin: 07/15/24 09:46 Dose: 12.5 mg Midodrine (Midodrine 5 Mg Tablet) 15 mg PO TID [facility] Last Admin: 07/15/24 14:48 Dose: 15 mg Multivitamins (P-Iacvtnh-Kdtilbo C Tablet) 1 each PO DAILY [facility] Last Admin: 07/15/24 09:45 Dose: 1 each Ondansetron HCl (Ondansetron 2 Mg/Ml Sdv 2 Ml) 4 mg IVP Q6H PRN PRN Reason: NAUSEA AND VOMITING Pantoprazole Sodium (Pantoprazole Dr 40 Mg Tablet) 40 mg PO DAILY [facility] Last Admin: 07/15/24 09:46 Dose: 40 mg Senna/Docusate Sodium (Sennosides-Docusate Tablet) 1 tab PO DAILY [facility] Last Admin: 07/15/24 09:46 Dose: 1 tab Tamsulosin HCl (Tamsulosin 0.4 Mg Capsule) 0.4 mg PO QPM [facility] Last Admin: 07/14/24 17:29 Dose: 0.4 mg Vitals/I&O/Wt Last Vital Signs Temp 98.5 F 07/15/24 16:00 Pulse 77 07/15/24 16:41 Resp 22 H 07/15/24 16:41 BP 118/68 07/15/24 16:41 Pulse Ox 94 07/15/24 16:41 O2 Del Method Room Air 07/15/24 07:48 O2 Flow Rate 0.5 07/08/24 09:29 07/15/24 07/15/24 07/15/24 06:59 14:59 22:59 Intake Total 118 / 118 Output Total 175 / 175 Balance -175 / 663 118 / 118 Weight last 48 hrs Weight 285 lb 0.923 oz Weight 287 lb 4.197 oz Physical Exam 2 Narrative: GENERAL: The patient is alert and oriented times three. Not in any acute distress. Chronically ill looking. HEENT: Moderate pallor, no icterus or lymphadenopathy.Oral cavity: There are no mucous membrane lesions. NECK: Trachea appears to be central. No masses noted. No JVD or thyromegaly appreciated. RESPIRATORY: Chest is symmetrical. No intercostals muscle retraction or any accessory muscle activation. There is no chest wall tenderness. The breath sounds are diminished in the bases. Dependent edema on the posterior aspect of the lower chest. BREASTS: Deferred. HEART: The aortic valve opening and closing sounds are normal. Variable intensity. Systolic murmur grade 3 or 6 in the mitral area. No diastolic murmurs. ABDOMEN: Ascites present. Normal bowel sounds : Deferred. RECTAL: Deferred. LYMPHATIC: No lymphadenopathy noted in the neck. EXTREMITIES: 2+ edema both lower extremities. No cyanosis. MUSCULOSKELETAL: No acute joint deformities or swelling SKIN: There are no significant rashes or ecchymosis NEUROPSYCHIATRIC: The patient is alert and oriented x3. Pleasant but ill looking. No focal motor deficits. Urinary Catheter Management: Vazquez: Cath Placed During This Visit: yes Reason for Continuing Indwelling Catheter: Acute Urinary Retention or Obstruction Urinary Catheter Date of Insertion: 07/05/24 Urinary Catheter Time of Insertion: 18:58 Data 07/15/24 08:23 07/15/24 08:23 Other Labs: Laboratory Last Values WBC 8.30 10^3/uL (3.29-11.43) 07/15/24 08: RBC 2.69 10^6/uL (3.85-5.65) L 07/15/24 08:23 Hgb 9.00 g/dL (11.27-16.99) L 07/15/24 08: Hct 27.9 % (37-53) L 07/15/24 08:23 MCV 103.7 fl (82-101) H 07/15/24 08:23 MCH 33.5 pg (27-33) H 07/15/24 08:23 MCHC 32.3 g/dL (30-55) 07/15/24 08:23 RDW 22.7 % (12.1-15.1) H 07/15/24 08:23 Plt Count 167 10^3/cmm (157-399) 07/15/24 08:23 MPV 10.2 fL (7.4-10.4) 07/15/24 08: Neut % (Auto) 86.8 % 07/15/24 08:23 Lymph % (Auto) 4.0 % 07/15/24 08:23 [place] % (Auto) 4.6 % 07/15/24 08:23 Eos % (Auto) 3.0 % 07/15/24 08:23 Baso % (Auto) 0.2 % 07/15/24 08:23 Neut # (Auto) 7.20 10^3/uL (1.8-7.7) 07/15/24 08:23 Lymph # (Auto) 0.3 10^3/uL (0.8-4.8) L 07/15/24 08:23 [place] # (Auto) 0.4 10^3/uL (0.2-0.9) 07/15/24 08:23 Eos # (Auto) 0.3 10^3/uL (0.0-0.8) 07/15/24 08:23 Baso # (Auto) 0.0 10^3/uL (0.0-0.1) 07/15/24 08:23 Nucleated RBC % (auto) 0 % 07/15/24 08: Nucleated RBCs # 0.0 /100WBC 07/15/24 08:23 PT 16.60 SECONDS (12.1-14.9) H 07/06/24 02:47 INR 1.29 (0.8-1.2) H 07/06/24 02:47 Sodium 134 mmol/L (136-145) L 07/15/24 08:23 Potassium 4.0 mmol/L (3.5-5.1) 07/15/24 08:23 Chloride 94 mmol/L (98-107) L 07/15/24 08:23 Carbon Dioxide 26 mmol/L (22-29) 07/15/24 08:23 Anion Gap 18.0 (5-19) 07/15/24 08:23 BUN 66 mg/dL (8-23) H 07/15/24 08:23 Creatinine 3.1 mg/dL (0.7-1.2) H 07/15/24 08:23 GFR Calculation Not Reportable 07/15/24 08:23 Glucose 148 mg/dL (65-115) H 07/15/24 08:23 POC Glucose 226 mg/dL (70-110) H 07/11/24 17:08 Estimat Average Glucose 97 09/16/24 03:33 Hemoglobin A1c 5.0 % (4.0-6.0) 07/08/24 03:33 Calculated Osmolality 300 mOsm/kg (285-295) H 07/15/24 08:23 Lactic Acid 1.3 mmol/L (0.5-2.2) 07/10/24 04:10 Calcium 8.4 mg/dL (8.5-10.5) L 07/15/24 08:23 Magnesium 2.1 mg/dL (1.7-2.3) 07/11/24 04:44 Iron 24 ug/dL (59-158) L 07/08/24 03:33 TIBC 199 mcg/dl 07/08/24 03:33 % Saturation 12.0 % (20-50) L 07/08/24 03:33 Unsat Iron Binding 175 ug/dL (112-347) 07/08/24 03:33 Total Bilirubin 0.6 mg/dL (0.15-1.2) 07/15/24 08:23 AST 19 U/L (0-40) 07/15/24 08:23 ALT 21 U/L (0-41) 07/15/24 08:23 Alkaline Phosphatase 183 U/L (40-130) H 07/15/24 08:23 Total Protein 6.0 g/dL (6.6-8.7) L 07/15/24 08:23 Albumin 3.2 g/dL (3.5-5.2) L 07/15/24 08:23 Globulin 2.8 g/dL (1.3-4.6) 07/15/24 08:23 Vitamin B12 1051 pg/mL (232-1245) 07/08/24 03:33 25-OH Vitamin D Total 10 ng/mL (30-100) L 07/06/24 02:47 Folate 7.5 ng/mL (4.5-32.2) 07/09/24 04:37 Procalcitonin 0.39 ng/mL (0-0.5) 07/08/24 03:33 TSH 9.76 uIU/mL (0.27-4.20) H 07/11/24 04:44 Free T4 0.83 ng/dL (0.82-1.77) 07/11/24 04:44 Free T3 1.2 PG/ML (2.0-4.4) L 07/08/24 03:33 PTH Intact 177.1 pg/mL (15-65) H 07/06/24 02:47 Calcium (PTH Intact) 8.7 mg/dL (8.5-10.5) 07/06/24 02:47 Random Cortisol 22.67 ug/dL (2.47-19.5) H 07/06/24 02:47 ABHIJEET Screen Negative (NEGATIVE) 07/05/24 04:02 Hep Bs Antigen Non-reactive (Nonreactive) 07/05/24 17:54 Hep Bs Antibody < 3.5 (11.5-1000) L 07/05/24 17:54 Hepatitis C Antibody Non-reactive (Nonreactive) 07/05/24 17:54 A&P Assessment and plan (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 Heart failure he is somewhat compensated at this time. Currently he is not on any afterload reducing agents because of the symptomatic hypotension with these medications in the past (2) Ischemic cardiomyopathy: Patient is LV ejection fraction of 25 to 30%. Apparently the patient could not tolerate Entresto/hydralazine. (3) Atherosclerotic heart disease of [place] coronary artery without angina pectoris: Seems to be stable with no chest pain. May continue on the current medications. Qualifiers: [place] vs. transplanted heart: [place] heart Qualified Code(s): I25.10 - Atherosclerotic heart disease of [place] coronary artery without angina pectoris (4) Hx of aortic valve replacement: Valve function appears to be appropriate. May continue on the current management. (5) Decompensated hepatic cirrhosis: Continue the current management. Patient with MIRANDA. Decided not to be a candidate for TIPS. Continue on the current measures (6) Ascites: Moderate to large ascites. Patient seems to be managing okay at this time. Qualifiers: Ascites type: other type Qualified Code(s): R18.8 - Other ascites (7) Microcytic anemia: Hemoglobin seems to be stable. May consider discontinuing aspirin and keep on Eliquis (8) ICD (implantable cardioverter-defibrillator) in place: Found to be functioning okay. Continue on the current management. (9) Atrial fibrillation: Patient is mostly in the paced rhythm. Patient is on oral anticoagulation. Qualifiers: Atrial fibrillation type: permanent Qualified Code(s): I48.21 - Permanent atrial fibrillation (10) Bilateral carotid artery stenosis: Stable with no specific symptoms. (11) Acute kidney injury superimposed on CKD: On intermittent hemodialysis requiring albumin infusion and midodrine to maintain adequate blood pressure Plan Awaiting transfer to the [facility] in [place]. Continue on the current management. Discontinue the aspirin. May continue on the Eliquis. Attestations 2 Medical Necessity Statement*: Deferred to the primary Coding Level of Care Code 87902 Diagnoses Biventricular failure I50.82 Ischemic cardiomyopathy I25.5 Atherosclerosis of [place] coronary artery of [place] heart without angina pectoris I25.10 [place] vs. transplanted heart: [place] heart Hx of aortic valve replacement Z95.2 Decompensated hepatic cirrhosis K72.90; K74.60 Other ascites R18.8 Ascites type: other type Microcytic anemia D50.9 ICD (implantable cardioverter-defibrillator) in place Z95.810 Permanent atrial fibrillation I48.21 Atrial fibrillation type: permanent Bilateral carotid artery stenosis I65.23 Acute kidney injury superimposed on CKD N17.9; N18.9
[2024-07-15] MEDS: tamsulosin 0.4 mg Capsule PO (18:05)
[2024-07-16] VITALS (9 sets, daily range): BP systolic 104–125; BP diastolic 58–75; PULSE 68–84; RESP 15–20; TEMP 36.3–36.7; O2SAT 95–100
[2024-07-16 02:45] LABS: Basophils % 0.3 %; Eosinophils # 0.3 10^3/uL (0.0-0.8); Eosinophils % 3.3 %; Hematocrit 26.8 % (37-53); Lymphocytes # 0.3 10^3/uL (0.8-4.8); Mean Corpuscular HGB Conc 32.1 g/dL (30-55); Mean Corpuscular Hemoglobin 33.5 pg (27-33); Mean Corpuscular Volume 104.3 fl (82-101); Mean Platelet Volume 10.1 fL (7.4-10.4); Monocytes # 0.4 10^3/uL (0.2-0.9); Monocytes % 5.5 %; Neutrophils # 6.81 10^3/uL (1.8-7.7); Neutrophils % 85.6 %; Nucleated Red Blood Cells % 0 %; Platelet Count 167 10^3/cmm (157-399); Red Blood Count 2.57 10^6/uL (3.85-5.65); Red Cell Distribution Width 22.5 % (12.1-15.1); White Blood Count 7.95 10^3/uL (3.29-11.43)
[2024-07-16 03:02] LABS: Blood Urea Nitrogen 70 mg/dL (8-23); Calcium 8.3 mg/dL (8.5-10.5); Carbon Dioxide 26 mmol/L (22-29); Chloride 91 mmol/L (98-107); Creatinine Clr Calc Pharmacy 33.6375; Glucose 171 mg/dL (65-115); Osmolality Calculated 293 mOsm/kg (285-295); Sodium 129 mmol/L (136-145)
[2024-07-16] MEDS: levothyroxine 100 mcg Tablet PO (05:48)
[2024-07-16] MEDS: midodrine 5 mg TABLET 15 MG PO ×3 (08:34→20:08)
[2024-07-16] MEDS: sennosides-docusate Tablet 1 TAB PO (08:35)
[2024-07-16] MEDS: metoprolol tartrate 25 mg Tablet 12.5 MG PO ×2 (08:35→18:39)
[2024-07-16] MEDS: duloxetine 30 mg Capsule 90 MG PO (08:35)
[2024-07-16] MEDS: b-complex-vitamin c Tablet 1 EACH PO (08:35)
[2024-07-16] MEDS: allopurinol 100 mg Tablet PO (08:35)
[2024-07-16] MEDS: pantoprazole DR 40 mg Tablet PO (08:35)
[2024-07-16] MEDS: bumetanide 0.25 mg/mL SDV 4 mL 1 MG IVP (09:45)
[2024-07-16] MEDS: metOLazone 5 MG Tablet PO (09:46)
--- NOTE | 2024-07-16 11:22 | P.PN_ITS ---
Subjective 2 Subjective: denies any complaints Medications: Reviewed: Yes Vitals/I&O/Wt Last Vital Signs Temp 97.4 F L 07/16/24 11:09 Pulse 70 07/16/24 11:09 Resp 16 07/16/24 11:09 BP 123/60 07/16/24 11:09 Pulse Ox 96 07/16/24 11:09 O2 Del Method Room Air 07/16/24 11:09 O2 Flow Rate 0.5 07/08/24 09:29 07/15/24 07/16/24 07/16/24 22:59 06:59 14:59 Intake Total 250 / 368 120 / 120 Output Total 300 / 300 150 / 450 Balance -300 / -182 100 / -82 120 / 120 Weight last 48 hrs Weight 128 kg Weight 129.3 kg Physical Exam 2 Narrative: Irregular, no distress On room air HEENT Has ascites No pedal edema S1-S2 regular rate and rhythm report Lungs clear. 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 Cardiac cirrhosis increased pulmonary hypertension, acute on chronic renal failure, hypothyroidism, gout, diabetes, A-fib. 1. Heart failure acute on chronic systolic and diastolic patient has a EF of 25 to 30% not able to tolerate Entresto. The patient has an ICD patient is currently in A-fib. 2. Acute on chronic renal failure likely from hypotension, cardiac disease and secondary liver disease. - likely he has hemodynamically mediated diseases with cardio hepatorenal syndrome. 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 Anemia hemoglobin is stable. Platelets relatively stable . 5. Hyponatremia likely from renal failure liver failure and heart failure. Slightly improved with dialysis 6. Diabetic control-patient has hypoglycemia. Can decrease insulin dose. Medications reviewed. The patient was seen and examined using audiovisual equipment with the aid of a nurse. Who examined the patient. The patient and his consent to hemodialysis and to telehealth. Unfortunately very poor prognosis. Plan See above Attestations 2 Medical Necessity Statement*: per angelina Coding Level of Care Code Acute Code for Chg Fwd Diagnoses Acute kidney injury superimposed on CKD N17.9; N18.9
--- NOTE | 2024-07-16 15:12 | PM.PN ---
Subjective Subjective: Patient was seen this morning, he is alert awake, sitting up into a chair, does report lower extremity edema, intermittent shortness of breath no chest pain, no palpitations, he has been accepted at [facility], he is awaiting a bed Vitals/I&O/Wt Last Vital Signs Temp 97.4 F L 07/16/24 11:09 Pulse 70 07/16/24 11:09 Resp 16 07/16/24 11:09 BP 123/60 07/16/24 11:09 Pulse Ox 96 07/16/24 11:09 O2 Del Method Room Air 07/16/24 11:09 O2 Flow Rate 0.5 07/08/24 09:29 07/16/24 07/16/24 07/16/24 06:59 14:59 22:59 Intake Total 250 / 368 120 / 120 Output Total 150 / 450 150 / 150 Balance 100 / -82 -30 / -30 Weight last 48 hrs Weight 128 kg Weight 129.3 kg Physical Exam Const: COMMON NORMALS: no acute distress ORIENTATION/CONSCIOUSNESS: Yes awake, Yes oriented to person and Yes oriented to place; not oriented to time Resp: COMMON NORMALS: normal respiratory effort, No retractions, No use of accessory muscles and clear to auscultation bilaterally AUSCULTATION: clear to auscultation bilaterally Cardio: COMMON NORMALS: regular rate, regular rhythm, S1 normal heart sound present and S2 normal heart sound present RATE: regular rate RHYTHM: regular rhythm HEART SOUNDS: S1 normal heart sound present and S2 normal heart sound present GI: COMMON NORMALS: Normal to inspection, nondistended, normoactive bowel sounds present and non-tender Extremity: COMMON NORMALS: no pedal edema Neuro: SENSORIUM/ORIENTATION: Yes oriented to person, Yes oriented to place and No oriented to time Psych: COMMON NORMALS: mental status grossly normal Urinary Catheter Management: Vazquez: Cath Placed During This Visit: yes Reason for Continuing Indwelling Catheter: Acute Urinary Retention or Obstruction Urinary Catheter Date of Insertion: 07/05/24 Urinary Catheter Time of Insertion: 18:58 Data 07/16/24 02:31 07/16/24 02:31 A&P Assessment and plan (1) Acute kidney injury superimposed on CKD: - Concerns for hypotension, during hemodialysis -Overall prognosis is poor -Has declined palliative care -Continue to monitor (2) Shock: Resolving Cardiogenic shock, hepatic cardiorenal syndrome Ischemic cardiomyopathy with decompensated cardiogenic shock along with multiorgan dysfunction in setting of hepatocardiorenal syndrome with renal failure on hemodialysis. Patient not deemed a candidate for TIPS as well as LVAD as per [facility]. Continue with oral midodrine 15 mg 3 times daily. Monitor urine output. Fluid restriction to less than 1500 cc. (3) Biventricular failure: Patient could not tolerate guideline directed congestive heart failure medications including Imdur, Entresto, CEZAR or ARB because of drop in blood pressure. Patient did not respond to dobutamine. Restarted low-dose beta-shailesh with metoprolol 12.5 mg twice daily. (4) Cardiorenal syndrome with renal failure: as above (5) Multi-organ system dysfunction: Along with decompensated hepatic cirrhosis and acute renal failure requiring hemodialysis (6) Hyponatremia: monitor (7) Hypoglycemia: monitor (8) Ischemic cardiomyopathy: Last echocardiogram shows an EF of 20% with global LV hypokinesis, grade 4 diastolic dysfunction, possibility of subvalvular equal genic oscillating serpentine structure which could be chordae tendineae versus possible vegetation near mitral valve, bioprosthetic aortic valve. (9) Goals of care, counseling/discussion: (10) Hemoperitoneum: (11) Hypothyroidism: Continue with levothyroxine. (12) CAD (coronary artery disease): Qualifiers: Associated angina: without angina Coronary Disease-Associated Artery/Lesion type: [place] artery [place] vs. transplanted heart: [place] heart Qualified Code(s): I25.10 - Atherosclerotic heart disease of [place] coronary artery without angina pectoris (13) Chronic systolic (congestive) heart failure: (14) H/O aortic root repair: (15) Chronic anticoagulation: eliquis (16) Diabetes: Hemoglobin stable now. Monitor for hypoglycemia as above. (17) Decompensated hepatic cirrhosis: Deemed not a candidate for TIPS procedure at [facility] (18) ICD (implantable cardioverter-defibrillator) in place: Plan - Goals of care discussion -Await case management discussion about long-term care facility placement -Overall prognosis poor Plan for today as patient has 2+ pitting edema bilateral extremity, complaints of shortness of breath will give a dose of Bumex today Attestations Medical Necessity Statement*: Patient requires hospitalization for ischemic cardiomyopathy, CHF, acute renal failure Diagnoses Acute kidney injury superimposed on CKD N17.9; N18.9 Shock R57.9 Biventricular failure I50.82 Cardiorenal syndrome with renal failure I13.10 Multi-organ system dysfunction Hyponatremia E87.1 Hypoglycemia E16.2 Ischemic cardiomyopathy I25.5 Goals of care, counseling/discussion Z71.89 Hemoperitoneum K66.1 Hypothyroidism E03.9 Coronary artery disease involving [place] coronary artery of [place] heart without angina pectoris I25.10 Associated angina: without angina Coronary Disease-Associated Artery/Lesion type: [place] artery [place] vs. transplanted heart: [place] heart Chronic systolic (congestive) heart failure I50.22 H/O aortic root repair Z98.890 Chronic anticoagulation Z79.01 Diabetes E11.9 Decompensated hepatic cirrhosis K72.90; K74.60 ICD (implantable cardioverter-defibrillator) in place Z95.810
[2024-07-16 17:22] LABS: Glucose Point of Care 190 mg/dL (70-110)
[2024-07-16] MEDS: tamsulosin 0.4 mg Capsule PO (18:39)
--- NOTE | 2024-07-16 21:59 | PM.PN ---
Subjective Subjective: Patient with no new symptoms. Still awaiting the side care placement Denies any chest pain or chest tightness. Has a baseline shortness of breath. Found to be sitting up at the bedside and eating Medications: Medication Review Details: Current Medications Acetaminophen (Acetaminophen 500 Mg Tablet) 500 mg PO Q4H PRN PRN Reason: fever Last Admin: 07/15/24 05:13 Dose: 500 mg Albuterol/Ipratropium (Ipratropium-Albuterol 3 Ml Neb) 3 ml INHALATION Q6H PRN PRN Reason: SHORTNESS OF BREATH Allopurinol (Allopurinol 100 Mg Tablet) 100 mg PO DAILY [facility] Last Admin: 07/16/24 08:35 Dose: 100 mg Apixaban (Apixaban 5 Mg Tablet) 5 mg PO BID@0800,1999 [facility] Last Admin: 07/05/24 08:53 Dose: 5 mg Calcium Carbonate (Calcium Carbonate 500 Mg Chew Tablet) 500 mg PO Q4H PRN PRN Reason: INDIGESTION Last Admin: 07/09/24 18:20 Dose: 500 mg Duloxetine HCl (Duloxetine 30 Mg Capsule) 90 mg PO DAILY [facility] Last Admin: 07/16/24 08:35 Dose: 90 mg Ergocalciferol (Ergocalciferol (Vitamin D2) 50,000 Unit Capsule) 50,000 unit PO Q7D [facility] Last Admin: 07/13/24 10:58 Dose: 50,000 unit Glucagon (Glucagon 1 Mg/Ml Kit 1 Ml) 1 mg IM ONCE PRN; Protocol PRN Reason: Adult Acute Hypoglycemia Nursing Prot. Dextrose (D5w) 500 mls @ 0 mls/hr IV ONCE PRN; Protocol PRN Reason: Adult Acute Hypoglycemia Prot Dextrose (D10w) 125 mls @ 750 mls/hr IV PRN PRN; Protocol PRN Reason: Adult Acute Hypoglycemia Nursing Protocol Dextrose (D10w) 250 mls @ 1,000 mls/hr IV PRN PRN; Protocol PRN Reason: Adult Acute Hypoglycemia Nursing Protocol Sodium Chloride (Sodium Chloride 0.9%) 1,000 mls @ 0 mls/hr IV .Q0M PRN PRN Reason: hypotension or symptomatic Albumin Human (Albumin) 12.5 gm in 50 mls @ 60 mls/hr IV PRN PRN PRN Reason: Hypotension and/or symptomatic Last Infusion: 07/11/24 15:16 Dose: Infused Levothyroxine Sodium (Levothyroxine 100 Mcg Tablet) 100 mcg PO QAM [facility] Last Admin: 07/16/24 05:48 Dose: 100 mcg Metoprolol Tartrate (Metoprolol Tartrate 25 Mg Tablet) 12.5 mg PO BID [facility] Last Admin: 07/16/24 18:39 Dose: 12.5 mg Midodrine (Midodrine 5 Mg Tablet) 15 mg PO TID [facility] Last Admin: 07/16/24 20:08 Dose: 15 mg Multivitamins (A-Krxsngr-Idntqcz C Tablet) 1 each PO DAILY [facility] Last Admin: 07/16/24 08:35 Dose: 1 each Ondansetron HCl (Ondansetron 2 Mg/Ml Sdv 2 Ml) 4 mg IVP Q6H PRN PRN Reason: NAUSEA AND VOMITING Pantoprazole Sodium (Pantoprazole Dr 40 Mg Tablet) 40 mg PO DAILY [facility] Last Admin: 07/16/24 08:35 Dose: 40 mg Senna/Docusate Sodium (Sennosides-Docusate Tablet) 1 tab PO DAILY [facility] Last Admin: 07/16/24 08:35 Dose: 1 tab Tamsulosin HCl (Tamsulosin 0.4 Mg Capsule) 0.4 mg PO QPM [facility] Last Admin: 07/16/24 18:39 Dose: 0.4 mg Vitals/I&O/Wt Last Vital Signs Temp 98.0 F 07/16/24 19:14 Pulse 72 07/16/24 19:14 Resp 16 07/16/24 19:14 BP 117/72 07/16/24 19:14 Pulse Ox 100 07/16/24 19:14 O2 Del Method Room Air 07/16/24 19:14 O2 Flow Rate 0.5 07/08/24 09:29 07/16/24 07/16/24 07/16/24 06:59 14:59 22:59 Intake Total 250 / 368 120 / 120 Output Total 150 / 450 150 / 150 Balance 100 / -82 -30 / -30 Weight last 48 hrs Weight 282 lb 3.067 oz Weight 285 lb 0.923 oz Physical Exam Narrative: GENERAL: The patient is alert and oriented times three. Not in any acute distress. [] HEENT: No significant pallor, icterus or lymphadenopathy.Oral cavity: There are no mucous membrane lesions. NECK: Trachea appears to be central. No masses noted. No JVD or thyromegaly appreciated. RESPIRATORY: Chest is symmetrical. No intercostals muscle retraction or any accessory muscle activation. There is no chest wall tenderness. Breath sounds are heard bilaterally. No rales or rhonchi heard. No evidence of any consolidation. [] BREASTS: Deferred. [] HEART: The heart sounds are normal. No S3 or S4. [No significant murmurs] []. No pericardial rub ABDOMEN: No vessel pulsations or distention. No tenderness. No organomegaly appreciated. Bowel sounds are normally heard. [] : Deferred. [] RECTAL: Deferred. [] LYMPHATIC: No lymphadenopathy noted in the neck. EXTREMITIES: No edema or cyanosis. No clubbing. MUSCULOSKELETAL: No acute joint deformities or swelling SKIN: There are no significant rashes or ecchymosis NEUROPSYCHIATRIC: The patient is alert and oriented x3. Appears to be in a good mood. No tremors or rigidity noted. [] Urinary Catheter Management: Vazquez: Cath Placed During This Visit: yes Reason for Continuing Indwelling Catheter: Acute Urinary Retention or Obstruction Urinary Catheter Date of Insertion: 07/05/24 Urinary Catheter Time of Insertion: 18:58 Data 07/16/24 02:31 07/16/24 02:31 Other Labs: Laboratory Last Values WBC 7.95 10^3/uL (3.29-11.43) 07/16/24 02:31 RBC 2.57 10^6/uL (3.85-5.65) L 07/16/24 02:31 Hgb 8.60 g/dL (11.27-16.99) L 07/16/24 02:31 Hct 26.8 % (37-53) L 07/16/24 02:31 MCV 104.3 fl (82-101) H 07/16/24 02:31 MCH 33.5 pg (27-33) H 07/16/24 02:31 MCHC 32.1 g/dL (30-55) 07/16/24 02:31 RDW 22.5 % (12.1-15.1) H 07/16/24 02:31 Plt Count 167 10^3/cmm (157-399) 07/16/24 02:31 MPV 10.1 fL (7.4-10.4) 07/16/24 02:31 Neut % (Auto) 85.6 % 07/16/24 02:31 Lymph % (Auto) 4.0 % 07/16/24 02:31 Gem % (Auto) 5.5 % 07/16/24 02:31 Eos % (Auto) 3.3 % 07/16/24 02:31 Baso % (Auto) 0.3 % 07/16/24 02:31 Neut # (Auto) 6.81 10^3/uL (1.8-7.7) 07/16/24 02:31 Lymph # (Auto) 0.3 10^3/uL (0.8-4.8) L 07/16/24 02:31 Gem # (Auto) 0.4 10^3/uL (0.2-0.9) 07/16/24 02:31 Eos # (Auto) 0.3 10^3/uL (0.0-0.8) 07/16/24 02:31 Baso # (Auto) 0.0 10^3/uL (0.0-0.1) 07/16/24 02:31 Nucleated RBC % (auto) 0 % 07/16/24 02:31 Nucleated RBCs # 0.0 /100WBC 07/16/24 02:31 PT 16.60 SECONDS (12.1-14.9) H 07/06/24 02:47 INR 1.29 (0.8-1.2) H 07/06/24 02:47 Sodium 129 mmol/L (136-145) L 07/16/24 02:31 Potassium 5.0 mmol/L (3.5-5.1) 07/16/24 02:31 Chloride 91 mmol/L (98-107) L 07/16/24 02:31 Carbon Dioxide 26 mmol/L (22-29) 07/16/24 02:31 Anion Gap 17.0 (5-19) 07/16/24 02:31 BUN 70 mg/dL (8-23) H 07/16/24 02:31 Creatinine 2.8 mg/dL (0.7-1.2) H 07/16/24 02:31 GFR Calculation Not Reportable 07/16/24 02:31 Glucose 171 mg/dL (65-115) H 07/16/24 02:31 POC Glucose 190 mg/dL (70-110) H 07/16/24 16:37 Estimat Average Glucose 97 07/08/24 03:33 Hemoglobin A1c 5.0 % (4.0-6.0) 07/08/24 03:33 Calculated Osmolality 293 mOsm/kg (285-295) 07/16/24 02:31 Lactic Acid 1.3 mmol/L (0.5-2.2) 07/10/24 04:10 Calcium 8.3 mg/dL (8.5-10.5) L 07/16/24 02:31 Magnesium 2.1 mg/dL (1.7-2.3) 07/11/24 04:44 Iron 24 ug/dL (59-158) L 07/08/24 03:33 TIBC 199 mcg/dl 07/08/24 03:33 % Saturation 12.0 % (20-50) L 07/08/24 03:33 Unsat Iron Binding 175 ug/dL (112-347) 07/08/24 03:33 Total Bilirubin 0.6 mg/dL (0.15-1.2) 07/15/24 08:23 AST 19 U/L (0-40) 07/15/24 08:23 ALT 21 U/L (0-41) 07/15/24 08:23 Alkaline Phosphatase 183 U/L (40-130) H 07/15/24 08:23 Total Protein 6.0 g/dL (6.6-8.7) L 07/15/24 08:23 Albumin 3.2 g/dL (3.5-5.2) L 07/15/24 08:23 Globulin 2.8 g/dL (1.3-4.6) 07/15/24 08:23 Vitamin B12 1051 pg/mL (232-1245) 07/08/24 03:33 25-OH Vitamin D Total 10 ng/mL (30-100) L 07/06/24 02:47 Folate 7.5 ng/mL (4.5-32.2) 07/09/24 04:37 Procalcitonin 0.39 ng/mL (0-0.5) 07/08/24 03:33 TSH 9.76 uIU/mL (0.27-4.20) H 07/11/24 04:44 Free T4 0.83 ng/dL (0.82-1.77) 07/11/24 04:44 Free T3 1.2 PG/ML (2.0-4.4) L 07/08/24 03:33 PTH Intact 177.1 pg/mL (15-65) H 07/06/24 02:47 Calcium (PTH Intact) 8.7 mg/dL (8.5-10.5) 07/06/24 02:47 Random Cortisol 22.67 ug/dL (2.47-19.5) H 07/06/24 02:47 ABHIJEET Screen Negative (NEGATIVE) 07/05/24 04:02 Hep Bs Antigen Non-reactive (Nonreactive) 07/05/24 17:54 Hep Bs Antibody < 3.5 (11.5-1000) L 07/05/24 17:54 Hepatitis C Antibody Non-reactive (Nonreactive) 07/05/24 17:54 A&P Assessment and plan (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 Heart failure he is somewhat compensated at this time. Currently he is not on any afterload reducing agents because of the symptomatic hypotension with these medications in the past (2) Ischemic cardiomyopathy: Patient is LV ejection fraction of 25 to 30%. Apparently the patient could not tolerate Entresto/hydralazine. (3) Atherosclerotic heart disease of [place] coronary artery without angina pectoris: Seems to be stable with no chest pain. May continue on the current medications. Qualifiers: [place] vs. transplanted heart: [place] heart Qualified Code(s): I25.10 - Atherosclerotic heart disease of [place] coronary artery without angina pectoris (4) Hx of aortic valve replacement: Valve function appears to be appropriate. May continue on the current management. Patient is on long-term oral anticoagulation (5) Decompensated hepatic cirrhosis: Continue the current management. Patient with MIRANDA. Decided not to be a candidate for TIPS. Continue on the current measures (6) Ascites: Moderate ascites. Patient seems to be managing okay at this time. Ascites recent seems to be getting any worse Qualifiers: Ascites type: other type Qualified Code(s): R18.8 - Other ascites (7) Microcytic anemia: Hemoglobin seems to be stable. The aspirin was discontinued. He is only taking the Eliquis. (8) ICD (implantable cardioverter-defibrillator) in place: Found to be functioning okay. Continue on the current management. (9) Atrial fibrillation: Patient is mostly in the paced rhythm. Patient is on oral anticoagulation. Qualifiers: Atrial fibrillation type: permanent Qualified Code(s): I48.21 - Permanent atrial fibrillation (10) Bilateral carotid artery stenosis: Stable with no specific symptoms. (11) Acute kidney injury superimposed on CKD: On intermittent hemodialysis requiring albumin infusion and midodrine to maintain adequate blood pressure Plan Awaiting transfer [facility] in [place]. Continue on the current management. May need to discuss with the nephrology about the feasibility of IV diuresis since he seems to be making some urine Attestations Medical Necessity Statement*: Deferred to the primary Coding Level of Care Code 64770 Diagnoses Biventricular failure I50.82 Ischemic cardiomyopathy I25.5 Atherosclerosis of [place] coronary artery of [place] heart without angina pectoris I25.10 [place] vs. transplanted heart: [place] heart Hx of aortic valve replacement Z95.2 Decompensated hepatic cirrhosis K72.90; K74.60 Other ascites R18.8 Ascites type: other type Microcytic anemia D50.9 ICD (implantable cardioverter-defibrillator) in place Z95.810 Permanent atrial fibrillation I48.21 Atrial fibrillation type: permanent Bilateral carotid artery stenosis I65.23 Acute kidney injury superimposed on CKD N17.9; N18.9
[2024-07-16 22:47] LABS: Adenovirus Not Detected (NOT DETECT); Chlamydia Pneumoniae Not Detected (NOT DETECT); Coronavirus 229E,HKU1,NL63,OC4 Not Detected (NOT DETECT); Human Metapneumovirus Not Detected (NOT DETECT); Human Rhinovirus/Enterovirus Not Detected (NOT DETECT); Influenza A Not Detected (NOT DETECT); Influenza A H1 Not Detected (NOT DETECT); Influenza A H1-2009 Not Detected (NOT DETECT); Influenza A H3 Not Detected (NOT DETECT); Influenza B Not Detected (NOT DETECT); Mycoplasma Pneumoniae Not Detected (NOT DETECT); Parainfluenza Virus Type 1 Not Detected (NOT DETECT); Parainfluenza Virus Type 2 Not Detected (NOT DETECT); Parainfluenza Virus Type 3 Not Detected (NOT DETECT); Parainfluenza Virus Type 4 Not Detected (NOT DETECT); Respiratory Syncytial Virus A Not Detected (NOT DETECT); Respiratory Syncytial Virus B Not Detected (NOT DETECT); SARS-COV-2 Not Detected (NOT DETECT)
[2024-07-17] VITALS (10 sets, daily range): BP systolic 101–139; BP diastolic 61–78; PULSE 66–76; RESP 16–22; TEMP 36.4–36.9; O2SAT 93–99
[2024-07-17 04:17] LABS: Basophils % 0.3 %; Eosinophils # 0.2 10^3/uL (0.0-0.8); Eosinophils % 2.6 %; Hematocrit 25.9 % (37-53); Lymphocytes # 0.4 10^3/uL (0.8-4.8); Lymphocytes % 4.6 %; Mean Corpuscular HGB Conc 32.4 g/dL (30-55); Mean Corpuscular Hemoglobin 33.1 pg (27-33); Mean Platelet Volume 9.8 fL (7.4-10.4); Monocytes # 0.6 10^3/uL (0.2-0.9); Monocytes % 7.5 %; Neutrophils # 6.46 10^3/uL (1.8-7.7); Neutrophils % 84.3 %; Nucleated Red Blood Cells % 0 %; Platelet Count 174 10^3/cmm (157-399); Red Blood Count 2.54 10^6/uL (3.85-5.65); Red Cell Distribution Width 22.4 % (12.1-15.1); White Blood Count 7.65 10^3/uL (3.29-11.43)
[2024-07-17 04:37] LABS: Anion Gap 18.4 (5-19); Blood Urea Nitrogen 74 mg/dL (8-23); Calcium 8.4 mg/dL (8.5-10.5); Carbon Dioxide 26 mmol/L (22-29); Chloride 93 mmol/L (98-107); Creatinine Clr Calc Pharmacy 30.4317; Glucose 161 mg/dL (65-115); Osmolality Calculated 301 mOsm/kg (285-295); Potassium 4.4 mmol/L (3.5-5.1); Sodium 133 mmol/L (136-145)
[2024-07-17] MEDS: levothyroxine 100 mcg Tablet PO (05:08)
--- NOTE | 2024-07-17 06:09 | PM.PN ---
Subjective Subjective: no new c/o Medications: Reviewed: Yes Vitals/I&O/Wt Last Vital Signs Temp 97.6 F 07/17/24 04:00 Pulse 70 07/17/24 04:00 Resp 16 07/17/24 04:00 BP 139/78 07/17/24 04:00 Pulse Ox 94 07/17/24 04:00 O2 Del Method Room Air 07/17/24 04:00 O2 Flow Rate 0.5 07/08/24 09:29 07/16/24 07/16/24 07/17/24 14:59 22:59 06:59 Intake Total 120 / 120 240 / 360 Output Total 150 / 150 250 / 400 200 / 600 Balance -30 / -30 -250 / -280 40 / -240 Weight last 48 hrs Weight 129.7 kg Weight 128 kg Physical Exam Narrative: Irregular, no distress On room air HEENT Has ascites No pedal edema S1-S2 regular rate and rhythm report Lungs clear. 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 Cardiac cirrhosis increased pulmonary hypertension, acute on chronic renal failure, hypothyroidism, gout, diabetes, A-fib. 1. Heart failure acute on chronic systolic and diastolic patient has a EF of 25 to 30% not able to tolerate Entresto. The patient has an ICD patient is currently in A-fib. 2. Acute on chronic renal failure likely from hypotension, cardiac disease and secondary liver disease. - likely he has hemodynamically mediated diseases with cardio hepatorenal syndrome. 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 Anemia hemoglobin is stable. Platelets relatively stable . 5. Hyponatremia likely from renal failure liver failure and heart failure. Slightly improved with dialysis 6. Diabetic control-patient has hypoglycemia. Can decrease insulin dose. Medications reviewed. The patient was seen and examined using audiovisual equipment with the aid of a nurse. Who examined the patient. The patient and his consent to hemodialysis and to telehealth. Unfortunately very poor prognosis. Plan See above Attestations Medical Necessity Statement*: per angelina Coding Level of Care Code Acute Code for Chg Fwd Diagnoses Acute kidney injury superimposed on CKD N17.9; N18.9
[2024-07-17] MEDS: duloxetine 30 mg Capsule 90 MG PO (09:00)
[2024-07-17] MEDS: metoprolol tartrate 25 mg Tablet 12.5 MG PO ×2 (09:00→17:20)
[2024-07-17] MEDS: midodrine 5 mg TABLET 15 MG PO ×3 (09:00→20:41)
[2024-07-17] MEDS: sennosides-docusate Tablet 1 TAB PO (09:00)
[2024-07-17] MEDS: allopurinol 100 mg Tablet PO (09:01)
[2024-07-17] MEDS: b-complex-vitamin c Tablet 1 EACH PO (09:01)
[2024-07-17] MEDS: pantoprazole DR 40 mg Tablet PO (09:01)
--- NOTE | 2024-07-17 12:13 | PC.SOCIAL ---
IMM Updated IMM dated and initialed and placed in chart and copy given to patient.
--- NOTE | 2024-07-17 12:46 | P.PN_ITS ---
Subjective 2 Subjective: Patient was seen this morning, he is alert oriented x 3, following all commands, sitting up in bed, enjoying his breakfast, denies any chest pain, no shortness of breath at rest, [facility] Vitals/I&O/Wt Last Vital Signs Temp 97.8 F 07/17/24 12:00 Pulse 67 07/17/24 12:00 Resp 20 H 07/17/24 12:00 BP 116/69 07/17/24 12:00 Pulse Ox 98 07/17/24 12:00 O2 Del Method Room Air 07/17/24 12:00 O2 Flow Rate 0.5 07/08/24 09:29 07/16/24 07/17/24 07/17/24 22:59 06:59 14:59 Intake Total 240 / 360 240 / 240 Output Total 250 / 400 200 / 600 Balance -250 / -280 40 / -240 240 / 240 Weight last 48 hrs Weight 129.7 kg Weight 128 kg Physical Exam 2 Const: COMMON NORMALS: no acute distress and patient oriented x3 Resp: COMMON NORMALS: normal respiratory effort, No retractions, No use of accessory muscles and clear to auscultation bilaterally AUSCULTATION: clear to auscultation bilaterally Cardio: COMMON NORMALS: regular rate, regular rhythm, S1 normal heart sound present and S2 normal heart sound present RATE: regular rate RHYTHM: r egular rhythm HEART SOUNDS: S1 normal heart sound present and S2 normal heart sound present GI: COMMON NORMALS: Normal to inspection, nondistended, normoactive bowel sounds present and non-tender Extremity: NARRATIVE EXTREMITY EXAM: 1+ edema Neuro: COMMON NORMALS: patient oriented x3 Psych: COMMON NORMALS: mental status grossly normal Urinary Catheter Management: Vazquez: Cath Placed During This Visit: yes Reason for Continuing Indwelling Catheter: Acute Urinary Retention or Obstruction Urinary Catheter Date of Insertion: 07/05/24 Urinary Catheter Time of Insertion: 18:58 Data 07/17/24 03:57 07/17/24 03:57 A&P Assessment and plan (1) Acute kidney injury superimposed on CKD: - Concerns for hypotension, during hemodialysis -Overall prognosis is poor -Has declined palliative care -Continue to monitor (2) Shock: Resolving Cardiogenic shock, hepatic cardiorenal syndrome Ischemic cardiomyopathy with decompensated cardiogenic shock along with multiorgan dysfunction in setting of hepatocardiorenal syndrome with renal failure on hemodialysis. Patient not deemed a candidate for TIPS as well as LVAD as per [facility]. Continue with oral midodrine 15 mg 3 times daily. Monitor urine output. Fluid restriction to less than 1500 cc. (3) Biventricular failure: Patient could not tolerate guideline directed congestive heart failure medications including Imdur, Entresto, CEZAR or ARB because of drop in blood pressure. Patient did not respond to dobutamine. Restarted low-dose beta-shailesh with metoprolol 12.5 mg twice daily. (4) Cardiorenal syndrome with renal failure: as above (5) Multi-organ system dysfunction: Along with decompensated hepatic cirrhosis and acute renal failure requiring hemodialysis (6) Hyponatremia: monitor (7) Hypoglycemia: monitor (8) Ischemic cardiomyopathy: Last echocardiogram shows an EF of 20% with global LV hypokinesis, grade 4 diastolic dysfunction, possibility of subvalvular equal genic oscillating serpentine structure which could be chordae tendineae versus possible vegetation near mitral valve, bioprosthetic aortic valve. (9) Goals of care, counseling/discussion: (10) Hemoperitoneum: (11) Hypothyroidism: Continue with levothyroxine. (12) CAD (coronary artery disease): Qualifiers: Coronary Disease-Associated Artery/Lesion type: [place] artery [place] vs. transplanted heart: [place] heart Associated angina: without angina Qualified Code(s): I25.10 - Atherosclerotic heart disease of [place] coronary artery without angina pectoris (13) Chronic systolic (congestive) heart failure: (14) H/O aortic root repair: (15) Chronic anticoagulation: eliquis (16) Diabetes: Hemoglobin stable now. Monitor for hypoglycemia as above. (17) Decompensated hepatic cirrhosis: Deemed not a candidate for TIPS procedure at [facility] (18) ICD (implantable cardioverter-defibrillator) in place: Plan - Goals of care discussion -Await case management discussion about long-term care facility placement -Overall prognosis poor Plan for today has been accepted at [facility], awaiting a bed, does have 1+ pitting edema, will give him another dose of Bumex today Attestations 2 Medical Necessity Statement*: Patient requires hospitalization for ischemic cardiomyopathy, ESRD, awaiting a bed at [facility] in [place] Diagnoses Acute kidney injury superimposed on CKD N17.9; N18.9 Shock R57.9 Biventricular failure I50.82 Cardiorenal syndrome with renal failure I13.10 Multi-organ system dysfunction Hyponatremia E87.1 Hypoglycemia E16.2 Ischemic cardiomyopathy I25.5 Goals of care, counseling/discussion Z71.89 Hemoperitoneum K66.1 Hypothyroidism E03.9 Coronary artery disease involving [place] coronary artery of [place] heart without angina pectoris I25.10 Coronary Disease-Associated Artery/Lesion type: [place] artery [place] vs. transplanted heart: [place] heart Associated angina: without angina Chronic systolic (congestive) heart failure I50.22 H/O aortic root repair Z98.890 Chronic anticoagulation Z79.01 Diabetes E11.9 Decompensated hepatic cirrhosis K72.90; K74.60 ICD (implantable cardioverter-defibrillator) in place Z95.810
[2024-07-17] MEDS: bumetanide 0.25 mg/mL SDV 4 mL 1 MG IVP (16:05)
[2024-07-17] MEDS: tamsulosin 0.4 mg Capsule PO (17:20)
--- NOTE | 2024-07-17 21:55 | P.PN_ITS ---
Subjective 2 Subjective: Patient with no new symptoms. No chest pain or palpitations. The urine output is somewhat better no fever or chills. Medications: Medication Review Details: Current Medications Acetaminophen (Acetaminophen 500 Mg Tablet) 500 mg PO Q4H PRN PRN Reason: fever Last Admin: 07/15/24 05:13 Dose: 500 mg Albuterol/Ipratropium (Ipratropium-Albuterol 3 Ml Neb) 3 ml INHALATION Q6H PRN PRN Reason: SHORTNESS OF BREATH Allopurinol (Allopurinol 100 Mg Tablet) 100 mg PO DAILY [facility] Last Admin: 07/17/24 09:01 Dose: 100 mg Apixaban (Apixaban 5 Mg Tablet) 5 mg PO BID@0800,2000 [facility] Last Admin: 07/05/24 08:53 Dose: 5 mg Calcium Carbonate (Calcium Carbonate 500 Mg Chew Tablet) 500 mg PO Q4H PRN PRN Reason: INDIGESTION Last Admin: 07/09/24 18:20 Dose: 500 mg Duloxetine HCl (Duloxetine 30 Mg Capsule) 90 mg PO DAILY [facility] Last Admin: 07/17/24 09:00 Dose: 90 mg Ergocalciferol (Ergocalciferol (Vitamin D2) 50,000 Unit Capsule) 50,000 unit PO Q7D [facility] Last Admin: 07/13/24 10:58 Dose: 50,000 unit Glucagon (Glucagon 1 Mg/Ml Kit 1 Ml) 1 mg IM ONCE PRN; Protocol PRN Reason: Adult Acute Hypoglycemia Nursing Prot. Dextrose (D5w) 500 mls @ 0 mls/hr IV ONCE PRN; Protocol PRN Reason: Adult Acute Hypoglycemia Prot Dextrose (D10w) 125 mls @ 750 mls/hr IV PRN PRN; Protocol PRN Reason: Adult Acute Hypoglycemia Nursing Protocol Dextrose (D10w) 250 mls @ 1,000 mls/hr IV PRN PRN; Protocol PRN Reason: Adult Acute Hypoglycemia Nursing Protocol Sodium Chloride (Sodium Chloride 0.9%) 1,000 mls @ 0 mls/hr IV .Q0M PRN PRN Reason: hypotension or symptomatic Albumin Human (Albumin) 12.5 gm in 50 mls @ 60 mls/hr IV PRN PRN PRN Reason: Hypotension and/or symptomatic Last Infusion: 07/11/24 15:16 Dose: Infused Levothyroxine Sodium (Levothyroxine 100 Mcg Tablet) 100 mcg PO QAM [facility] Last Admin: 07/17/24 05:08 Dose: 100 mcg Metoprolol Tartrate (Metoprolol Tartrate 25 Mg Tablet) 12.5 mg PO BID [facility] Last Admin: 07/17/24 17:20 Dose: 12.5 mg Midodrine (Midodrine 5 Mg Tablet) 15 mg PO TID [facility] Last Admin: 07/17/24 20:41 Dose: 15 mg Multivitamins (L-[place] C Tablet) 1 each PO DAILY [facility] Last Admin: 07/17/24 09:01 Dose: 1 each Ondansetron HCl (Ondansetron 2 Mg/Ml Sdv 2 Ml) 4 mg IVP Q6H PRN PRN Reason: NAUSEA AND VOMITING Pantoprazole Sodium (Pantoprazole Dr 40 Mg Tablet) 40 mg PO DAILY [facility] Last Admin: 07/17/24 09:01 Dose: 40 mg Senna/Docusate Sodium (Sennosides-Docusate Tablet) 1 tab PO DAILY [facility] Last Admin: 07/17/24 09:00 Dose: 1 tab Tamsulosin HCl (Tamsulosin 0.4 Mg Capsule) 0.4 mg PO QPM [facility] Last Admin: 07/17/24 17:20 Dose: 0.4 mg Vitals/I&O/Wt Last Vital Signs Temp 97.9 F 07/17/24 19:56 Pulse 70 07/17/24 19:56 Resp 16 07/17/24 19:56 BP 101/63 07/17/24 19:56 Pulse Ox 93 07/17/24 19:56 O2 Del Method Room Air 07/17/24 19:56 O2 Flow Rate 0.5 07/08/24 09:29 07/17/24 07/17/24 07/17/24 06:59 14:59 22:59 Intake Total 240 / 360 480 / 480 Output Total 200 / 600 240 / 240 Balance 40 / -240 480 / 480 -240 / 240 Weight last 48 hrs Weight 285 lb 15.033 oz Weight 282 lb 3.067 oz Physical Exam 2 Narrative: GENERAL: The patient is alert and oriented times three. Not in any acute distress. Chronically ill looking/lethargy HEENT: No significant pallor, icterus or lymphadenopathy.Oral cavity: There are no mucous membrane lesions. NECK: Trachea appears to be central. No masses noted. No JVD or thyromegaly appreciated. RESPIRATORY: Chest is symmetrical. No intercostals muscle retraction or any accessory muscle activation. There is no chest wall tenderness. Breath sounds are heard bilaterally. No rales or rhonchi heard. No evidence of any consolidation. Breath sounds are diminished in the bases. BREASTS: Deferred. HEART: The heart sounds are normal. No S3 or S4. Ejection systolic murmur of grade 3 or 6 in the aortic area. Short systolic murmur in the mitral area. No diastolic murmurs. No pericardial rub ABDOMEN: Abdomen is distended : Deferred. RECTAL: Deferred. LYMPHATIC: No lymphadenopathy noted in the neck. EXTREMITIES: 2-3+ edema bilaterally with no cyanosis. MUSCULOSKELETAL: No acute joint deformities or swelling SKIN: Some features of chronic venous stasis. NEUROPSYCHIATRIC: The patient is alert and oriented x3. Chronically ill looking and lethargic Urinary Catheter Management: Vazquez: Cath Placed During This Visit: yes Reason for Continuing Indwelling Catheter: Acute Urinary Retention or Obstruction Urinary Catheter Date of Insertion: 07/05/24 Urinary Catheter Time of Insertion: 18:58 Data 07/17/24 03:57 07/17/24 03:57 Other Labs: Laboratory Last Values WBC 7.65 10^3/uL (3.29-11.43) 07/17/24 03:57 RBC 2.54 10^6/uL (3.85-5.65) L 07/17/24 03:57 Hgb 8.40 g/dL (11.27-16.99) L 07/17/24 03:57 Hct 25.9 % (37-53) L 07/17/24 03:57 MCV 102.0 fl (82-101) H 07/17/24 03:57 MCH 33.1 pg (27-33) H 07/17/24 03:57 MCHC 32.4 g/dL (30-55) 07/17/24 03:57 RDW 22.4 % (12.1-15.1) H 07/17/24 03:57 Plt Count 174 10^3/cmm (157-399) 07/17/24 03:57 MPV 9.8 fL (7.4-10.4) 07/17/24 03:57 Neut % (Auto) 84.3 % 07/17/24 03:57 Lymph % (Auto) 4.6 % 07/17/24 03:57 [place] % (Auto) 7.5 % 07/17/24 03:57 Eos % (Auto) 2.6 % 07/17/24 03:57 Baso % (Auto) 0.3 % 07/17/24 03:57 Neut # (Auto) 6.46 10^3/uL (1.8-7.7) 07/17/24 03:57 Lymph # (Auto) 0.4 10^3/uL (0.8-4.8) L 07/17/24 03:57 [place] # (Auto) 0.6 10^3/uL (0.2-0.9) 07/17/24 03:57 Eos # (Auto) 0.2 10^3/uL (0.0-0.8) 07/17/24 03:57 Baso # (Auto) 0.0 10^3/uL (0.0-0.1) 07/17/24 03:57 Nucleated RBC % (auto) 0 % 07/17/24 03:57 Nucleated RBCs # 0.0 /100WBC 07/17/24 03:57 PT 16.60 SECONDS (12.1-14.9) H 07/06/24 02:47 INR 1.29 (0.8-1.2) H 07/06/24 02:47 Sodium 133 mmol/L (136-145) L 07/17/24 03:57 Potassium 4.4 mmol/L (3.5-5.1) 07/17/24 03:57 Chloride 93 mmol/L (98-107) L 07/17/24 03:57 Carbon Dioxide 26 mmol/L (22-29) 07/17/24 03:57 Anion Gap 18.4 (5-19) 07/17/24 03:57 BUN 74 mg/dL (8-23) H 07/17/24 03:57 Creatinine 3.1 mg/dL (0.7-1.2) H 07/17/24 03:57 GFR Calculation Not Reportable 07/17/24 03:57 Glucose 161 mg/dL (65-115) H 07/17/24 03:57 POC Glucose 190 mg/dL (70-110) H 07/16/24 16:37 Estimat Average Glucose 97 07/08/24 03:33 Hemoglobin A1c 5.0 % (4.0-6.0) 07/08/24 03:33 Calculated Osmolality 301 mOsm/kg (285-295) H 07/17/24 03:57 Lactic Acid 1.3 mmol/L (0.5-2.2) 07/10/24 04:10 Calcium 8.4 mg/dL (8.5-10.5) L 07/17/24 03:57 Magnesium 2.1 mg/dL (1.7-2.3) 07/11/24 04:44 Iron 24 ug/dL (59-158) L 07/08/24 03:33 TIBC 199 mcg/dl 07/08/24 03:33 % Saturation 12.0 % (20-50) L 07/08/24 03:33 Unsat Iron Binding 175 ug/dL (112-347) 07/08/24 03:33 Total Bilirubin 0.6 mg/dL (0.15-1.2) 07/15/24 08:23 AST 19 U/L (0-40) 07/15/24 08:23 ALT 21 U/L (0-41) 07/15/24 08:23 Alkaline Phosphatase 183 U/L (40-130) H 07/15/24 08:23 Total Protein 6.0 g/dL (6.6-8.7) L 07/15/24 08:23 Albumin 3.2 g/dL (3.5-5.2) L 07/15/24 08:23 Globulin 2.8 g/dL (1.3-4.6) 07/15/24 08:23 Vitamin B12 1051 pg/mL (232-1245) 07/08/24 03:33 25-OH Vitamin D Total 10 ng/mL (30-100) L 07/06/24 02:47 Folate 7.5 ng/mL (4.5-32.2) 07/09/24 04:37 Procalcitonin 0.39 ng/mL (0-0.5) 07/08/24 03:33 TSH 9.76 uIU/mL (0.27-4.20) H 07/11/24 04:44 Free T4 0.83 ng/dL (0.82-1.77) 07/11/24 04:44 Free T3 1.2 PG/ML (2.0-4.4) L 07/08/24 03:33 PTH Intact 177.1 pg/mL (15-65) H 07/06/24 02:47 Calcium (PTH Intact) 8.7 mg/dL (8.5-10.5) 07/06/24 02:47 Random Cortisol 22.67 ug/dL (2.47-19.5) H 07/06/24 02:47 ABHIJEET Screen Negative (NEGATIVE) 07/05/24 04:02 Adenovirus (PCR) Not detected (NOT DETECT) 07/16/24 20:50 C. pneumoniae DNA (PCR) Not detected (NOT DETECT) 07/16/24 20:50 Coronavirus 229E (PCR) Not detected (NOT DETECT) 07/16/24 20:50 Hep Bs Antigen Non-reactive (Nonreactive) 07/05/24 17:54 Hep Bs Antibody < 3.5 (11.5-1000) L 07/05/24 17:54 Hepatitis C Antibody Non-reactive (Nonreactive) 07/05/24 17:54 Human Metapneumovir PCR Not detected (NOT DETECT) 07/16/24 20:50 Influenza A (H1) PCR Not detected (NOT DETECT) 07/16/24 20:50 Influ A (H1/09) PCR Not detected (NOT DETECT) 07/16/24 20:50 Influenza A (H3) PCR Not detected (NOT DETECT) 07/16/24 20:50 Influenza Type A (PCR) Not detected (NOT DETECT) 07/16/24 20:50 Influenza Type B (PCR) Not detected (NOT DETECT) 07/16/24 20:50 M. 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 Heart failure he is somewhat compensated at this time. Currently he is not on any afterload reducing agents because of the symptomatic hypotension with these medications in the past I may give a trial of p.o. Lasix 80 mg to see whether it make any improvement in the urine output since his blood pressure is currently stable (2) Ischemic cardiomyopathy: Patient is LV ejection fraction of 25 to 30%. Apparently the patient could not tolerate Entresto/hydralazine. (3) Atherosclerotic heart disease of [place] coronary artery without angina pectoris: Seems to be stable with no chest pain. May continue on the current medications. Qualifiers: [place] vs. transplanted heart: [place] heart Qualified Code(s): I25.10 - Atherosclerotic heart disease of [place] coronary artery without angina pectoris (4) Hx of aortic valve replacement: Valve function appears to be appropriate. May continue on the current management. Patient is on long-term oral anticoagulation (5) Decompensated hepatic cirrhosis: Continue the current management. Patient with MIRANDA. Decided not to be a candidate for TIPS. Continue on the current measures (6) Ascites: Moderate ascites. Patient seems to be managing okay at this time. May continue on the current management Qualifiers: Ascites type: other type Qualified Code(s): R18.8 - Other ascites (7) Microcytic anemia: Hemoglobin seems to be stable. The aspirin was discontinued. He is only taking the Eliquis. (8) ICD (implantable cardioverter-defibrillator) in place: Found to be functioning okay. Continue on the current management. (9) Atrial fibrillation: Patient is mostly in the paced rhythm. Patient is on oral anticoagulation. Qualifiers: Atrial fibrillation type: permanent Qualified Code(s): I48.21 - Permanent atrial fibrillation (10) Bilateral carotid artery stenosis: Stable with no specific symptoms. (11) Acute kidney injury superimposed on CKD: On intermittent hemodialysis requiring albumin infusion and midodrine to maintain adequate blood pressure-no dialysis for the last 3 days Plan Awaiting transfer to the [facility] in [place]. Continue on the current management. Lasix 80 mg p.o. to see any improvement in the urine output Attestations 2 Medical Necessity Statement*: Disposition as per the primary Coding Level of Care Code 38872 Diagnoses Biventricular failure I50.82 Ischemic cardiomyopathy I25.5 Atherosclerosis of [place] coronary artery of [place] heart without angina pectoris I25.10 [place] vs. transplanted heart: [place] heart Hx of aortic valve replacement Z95.2 Decompensated hepatic cirrhosis K72.90; K74.60 Other ascites R18.8 Ascites type: other type Microcytic anemia D50.9 ICD (implantable cardioverter-defibrillator) in place Z95.810 Permanent atrial fibrillation I48.21 Atrial fibrillation type: permanent Bilateral carotid artery stenosis I65.23 Acute kidney injury superimposed on CKD N17.9; N18.9
[2024-07-18] VITALS (8 sets, daily range): BP systolic 106–114; BP diastolic 53–75; PULSE 0–78; RESP 18–20; TEMP 36.6–36.7; O2SAT 93–98
[2024-07-18 05:03] LABS: Basophils % 0.5 %; Eosinophils # 0.2 10^3/uL (0.0-0.8); Hematocrit 25.6 % (37-53); Lymphocytes # 0.3 10^3/uL (0.8-4.8); Lymphocytes % 3.7 %; Mean Corpuscular HGB Conc 33.2 g/dL (30-55); Mean Corpuscular Volume 102.4 fl (82-101); Mean Platelet Volume 10.1 fL (7.4-10.4); Monocytes # 0.6 10^3/uL (0.2-0.9); Monocytes % 7.1 %; Neutrophils # 6.95 10^3/uL (1.8-7.7); Neutrophils % 86.2 %; Nucleated Red Blood Cells % 0 %; Platelet Count 179 10^3/cmm (157-399); Red Cell Distribution Width 22.5 % (12.1-15.1); White Blood Count 8.06 10^3/uL (3.29-11.43)
[2024-07-18 05:35] LABS: Anion Gap 17.4 (5-19); Blood Urea Nitrogen 80 mg/dL (8-23); Calcium 8.8 mg/dL (8.5-10.5); Carbon Dioxide 27 mmol/L (22-29); Chloride 94 mmol/L (98-107); Glucose 182 mg/dL (65-115); Osmolality Calculated 307 mOsm/kg (285-295); Potassium 4.4 mmol/L (3.5-5.1); Sodium 134 mmol/L (136-145)
[2024-07-18] MEDS: FUROsemide 10 mg/mL SDV 10mL 80 MG IVP (05:52)
[2024-07-18] MEDS: levothyroxine 100 mcg Tablet PO (05:52)
--- NOTE | 2024-07-18 07:55 | P.PN_ITS ---
Subjective 2 Subjective: no new c/o Medications: Reviewed: Yes Vitals/I&O/Wt Last Vital Signs Temp 97.8 F 07/18/24 07:19 Pulse 70 07/18/24 07:19 Resp 18 07/18/24 07:19 BP 110/57 07/18/24 07:19 Pulse Ox 97 07/18/24 07:19 O2 Del Method Room Air 07/18/24 07:19 O2 Flow Rate 0.5 07/08/24 09:29 07/17/24 07/18/24 07/18/24 22:59 06:59 14:59 Intake Total 120 / 600 Output Total 340 / 340 200 / 540 Balance -340 / 140 -80 / 60 Weight last 48 hrs Weight 60.073 kg Weight 129.7 kg Physical Exam 2 Narrative: Irregular, no distress On room air HEENT Has ascites No pedal edema S1-S2 regular rate and rhythm report Lungs clear. Urinary Catheter Management: Vazquez: Cath Placed During This Visit: yes Reason for Continuing Indwelling Catheter: Acute Urinary Retention or Obstruction Urinary Catheter Date of Insertion: 07/05/24 Urinary Catheter Time of Insertion: 18:58 Data 07/18/24 04:44 07/18/24 04:44 A&P Assessment and plan (1) Acute kidney injury superimposed on CKD: 73-year-old gentleman heart failure combined systolic and diastolic with valvular heart disease. Cardiac cirrhosis increased pulmonary hypertension, acute on chronic renal failure, hypothyroidism, gout, diabetes, A-fib. 1. Heart failure acute on chronic systolic and diastolic patient has a EF of 25 to 30% not able to tolerate Entresto. The patient has an ICD patient is currently in A-fib. 2. Acute on chronic renal failure likely from hypotension, cardiac disease and secondary liver disease. - likely he has hemodynamically mediated diseases with cardio hepatorenal syndrome. -renal ultrasound -reveals ascites, no hydronephrosis -Status post hemodialysis x 1 session , , but ,BP dropped with hD and required IV albumin , , -Repeatedly discussed with patient and regarding overall poor prognosis and patient unable to to tolerate dialysis -Also given underlying advanced liver failure, offering hemodialysis would not improve his overall survival Not a alf HD candidate , discussed possible palliative care /conservative management would be more appropriate Today patient's states that they understand overall poor prognosis and will make a decision regarding possible conservative management/hospice 3. Anemia hemoglobin is stable. Platelets relatively stable . 5. Hyponatremia likely from renal failure liver failure and heart failure. Slightly improved with dialysis 6. Diabetic control-patient has hypoglycemia. Can decrease insulin dose. Medications reviewed. The patient was seen and examined using audiovisual equipment with the aid of a nurse. Who examined the patient. The patient and his consent to hemodialysis and to telehealth. Unfortunately very poor prognosis. Plan See above Attestations 2 Medical Necessity Statement*: per angelina Coding Level of Care Code Acute Code for Chg Fwd Diagnoses Acute kidney injury superimposed on CKD N17.9; N18.9
[2024-07-18] MEDS: duloxetine 30 mg Capsule 90 MG PO (08:18)
[2024-07-18] MEDS: allopurinol 100 mg Tablet PO (08:18)
[2024-07-18] MEDS: midodrine 5 mg TABLET 15 MG PO ×2 (08:18→14:12)
[2024-07-18] MEDS: pantoprazole DR 40 mg Tablet PO (08:18)
[2024-07-18] MEDS: sennosides-docusate Tablet 1 TAB PO (08:18)
[2024-07-18] MEDS: b-complex-vitamin c Tablet 1 EACH PO (08:18)
[2024-07-18] MEDS: metoprolol tartrate 25 mg Tablet 12.5 MG PO (08:18)
--- NOTE | 2024-07-18 12:49 | PM.PN ---
Subjective Subjective: Patient with no new symptoms. Able to sit up at the bedside. Still appears to be very weak and tired. No chest pain. No fever or chills. Medications: Medication Review Details: Current Medications Acetaminophen (Acetaminophen 500 Mg Tablet) 500 mg PO Q4H PRN PRN Reason: fever Last Admin: 07/15/24 05:13 Dose: 500 mg Albuterol/Ipratropium (Ipratropium-Albuterol 3 Ml Neb) 3 ml INHALATION Q6H PRN PRN Reason: SHORTNESS OF BREATH Allopurinol (Allopurinol 100 Mg Tablet) 100 mg PO DAILY [facility] Last Admin: 07/18/24 08:18 Dose: 100 mg Apixaban (Apixaban 5 Mg Tablet) 5 mg PO BID@0800,1999 [facility] Last Admin: 07/05/24 08:53 Dose: 5 mg Calcium Carbonate (Calcium Carbonate 500 Mg Chew Tablet) 500 mg PO Q4H PRN PRN Reason: INDIGESTION Last Admin: 07/09/24 18:20 Dose: 500 mg Duloxetine HCl (Duloxetine 30 Mg Capsule) 90 mg PO DAILY [facility] Last Admin: 07/18/24 08:18 Dose: 90 mg Ergocalciferol (Ergocalciferol (Vitamin D2) 50,000 Unit Capsule) 50,000 unit PO Q7D [facility] Last Admin: 07/13/24 10:58 Dose: 50,000 unit Glucagon (Glucagon 1 Mg/Ml Kit 1 Ml) 1 mg IM ONCE PRN; Protocol PRN Reason: Adult Acute Hypoglycemia Nursing Prot. Dextrose (D5w) 500 mls @ 0 mls/hr IV ONCE PRN; Protocol PRN Reason: Adult Acute Hypoglycemia Prot Dextrose (D10w) 125 mls @ 750 mls/hr IV PRN PRN; Protocol PRN Reason: Adult Acute Hypoglycemia Nursing Protocol Dextrose (D10w) 250 mls @ 1,000 mls/hr IV PRN PRN; Protocol PRN Reason: Adult Acute Hypoglycemia Nursing Protocol Sodium Chloride (Sodium Chloride 0.9%) 1,000 mls @ 0 mls/hr IV .Q0M PRN PRN Reason: hypotension or symptomatic Albumin Human (Albumin) 12.5 gm in 50 mls @ 60 mls/hr IV PRN PRN PRN Reason: Hypotension and/or symptomatic Last Infusion: 07/11/24 15:16 Dose: Infused Levothyroxine Sodium (Levothyroxine 100 Mcg Tablet) 100 mcg PO QAM [facility] Last Admin: 07/18/24 05:52 Dose: 100 mcg Metoprolol Tartrate (Metoprolol Tartrate 25 Mg Tablet) 12.5 mg PO BID [facility] Last Admin: 07/18/24 08:18 Dose: 12.5 mg Midodrine (Midodrine 5 Mg Tablet) 15 mg PO TID [facility] Last Admin: 07/18/24 08:18 Dose: 15 mg Multivitamins (B-Mfuoorm-Cjqsvwq C Tablet) 1 each PO DAILY [facility] Last Admin: 07/18/24 08:18 Dose: 1 each Ondansetron HCl (Ondansetron 2 Mg/Ml Sdv 2 Ml) 4 mg IVP Q6H PRN PRN Reason: NAUSEA AND VOMITING Pantoprazole Sodium (Pantoprazole Dr 40 Mg Tablet) 40 mg PO DAILY [facility] Last Admin: 07/18/24 08:18 Dose: 40 mg Senna/Docusate Sodium (Sennosides-Docusate Tablet) 1 tab PO DAILY [facility] Last Admin: 07/18/24 08:18 Dose: 1 tab Tamsulosin HCl (Tamsulosin 0.4 Mg Capsule) 0.4 mg PO QPM [facility] Last Admin: 07/17/24 17:20 Dose: 0.4 mg Vitals/I&O/Wt Last Vital Signs Temp 97.8 F 07/18/24 12:00 Pulse 78 07/18/24 12:00 Resp 20 H 07/18/24 12:00 BP 106/62 07/18/24 12:00 Pulse Ox 93 07/18/24 12:00 O2 Del Method Room Air 07/18/24 12:00 O2 Flow Rate 0.5 07/08/24 09:29 07/17/24 07/18/24 07/18/24 22:59 06:59 14:59 Intake Total 120 / 600 480 / 480 Output Total 340 / 340 200 / 540 Balance -340 / 140 -80 / 60 480 / 480 Weight last 48 hrs Weight 132 lb 7 oz Weight 285 lb 15.033 oz Physical Exam Narrative: GENERAL: The patient is alert and oriented times three. Not in any acute distress. Chronically ill looking/lethargy HEENT: No significant pallor, icterus or lymphadenopathy.Oral cavity: There are no mucous membrane lesions. NECK: Trachea appears to be central. No masses noted. No JVD or thyromegaly appreciated. RESPIRATORY: Chest is symmetrical. No intercostals muscle retraction or any accessory muscle activation. There is no chest wall tenderness. Breath sounds are heard bilaterally. No rales or rhonchi heard. No evidence of any consolidation. Breath sounds are diminished in the bases. BREASTS: Deferred. HEART: The heart sounds are normal. No S3 or S4. Ejection systolic murmur of grade 3 or 6 in the aortic area. Short systolic murmur in the mitral area. No diastolic murmurs. No pericardial rub ABDOMEN: Abdomen is distended : Deferred. RECTAL: Deferred. LYMPHATIC: No lymphadenopathy noted in the neck. EXTREMITIES: 2-3+ edema bilaterally with no cyanosis. MUSCULOSKELETAL: No acute joint deformities or swelling SKIN: Some features of chronic venous stasis. NEUROPSYCHIATRIC: The patient is alert and oriented x3. Chronically ill looking and lethargic Urinary Catheter Management: Vazquez: Cath Placed During This Visit: yes Reason for Continuing Indwelling Catheter: Acute Urinary Retention or Obstruction Urinary Catheter Date of Insertion: 07/05/24 Urinary Catheter Time of Insertion: 18:58 Data 07/18/24 04:44 07/18/24 04:44 Other Labs: Laboratory Last Values WBC 8.06 10^3/uL (3.29-11.43) 07/18/24 04:44 RBC 2.50 10^6/uL (3.85-5.65) L 07/18/24 04:44 Hgb 8.50 g/dL (11.27-16.99) L 07/18/24 04:44 Hct 25.6 % (37-53) L 07/18/24 04:44 MCV 102.4 fl (82-101) H 07/18/24 04:44 MCH 34.0 pg (27-33) H 07/18/24 04:44 MCHC 33.2 g/dL (30-55) 07/18/24 04:44 RDW 22.5 % (12.1-15.1) H 07/18/24 04:44 Plt Count 179 10^3/cmm (157-399) 07/18/24 04:44 MPV 10.1 fL (7.4-10.4) 07/18/24 04:44 Neut % (Auto) 86.2 % 07/18/24 04:44 Lymph % (Auto) 3.7 % 07/18/24 04:44 [place] % (Auto) 7.1 % 07/18/24 04:44 Eos % (Auto) 2.0 % 07/18/24 04:44 Baso % (Auto) 0.5 % 07/18/24 04:44 Neut # (Auto) 6.95 10^3/uL (1.8-7.7) 07/18/24 04:44 Lymph # (Auto) 0.3 10^3/uL (0.8-4.8) L 07/18/24 04:44 [place] # (Auto) 0.6 10^3/uL (0.2-0.9) 07/18/24 04:44 Eos # (Auto) 0.2 10^3/uL (0.0-0.8) 07/18/24 04:44 Baso # (Auto) 0.0 10^3/uL (0.0-0.1) 07/18/24 04:44 Nucleated RBC % (auto) 0 % 07/18/24 04:44 Nucleated RBCs # 0.0 /100WBC 07/18/24 04:44 PT 16.60 SECONDS (12.1-14.9) H 07/06/24 02:47 INR 1.29 (0.8-1.2) H 07/06/24 02:47 Sodium 134 mmol/L (136-145) L 07/18/24 04:44 Potassium 4.4 mmol/L (3.5-5.1) 07/18/24 04:44 Chloride 94 mmol/L (98-107) L 07/18/24 04:44 Carbon Dioxide 27 mmol/L (22-29) 07/18/24 04:44 Anion Gap 17.4 (5-19) 07/18/24 04:44 BUN 80 mg/dL (8-23) H 07/18/24 04:44 Creatinine 3.1 mg/dL (0.7-1.2) H 07/18/24 04:44 GFR Calculation Not Reportable 07/18/24 04:44 Glucose 182 mg/dL (65-115) H 07/18/24 04:44 POC Glucose 190 mg/dL (70-110) H 07/16/24 16:37 Estimat Average Glucose 97 07/08/24 03:33 Hemoglobin A1c 5.0 % (4.0-6.0) 07/08/24 03:33 Calculated Osmolality 307 mOsm/kg (285-295) H 07/18/24 04:44 Lactic Acid 1.3 mmol/L (0.5-2.2) 07/10/24 04:10 Calcium 8.8 mg/dL (8.5-10.5) 07/18/24 04:44 Magnesium 2.1 mg/dL (1.7-2.3) 07/11/24 04:44 Iron 24 ug/dL (59-158) L 07/08/24 03:33 TIBC 199 mcg/dl 07/08/24 03:33 % Saturation 12.0 % (20-50) L 07/08/24 03:33 Unsat Iron Binding 175 ug/dL (112-347) 07/08/24 03:33 Total Bilirubin 0.6 mg/dL (0.15-1.2) 07/15/24 08:23 AST 19 U/L (0-40) 07/15/24 08:23 ALT 21 U/L (0-41) 07/15/24 08:23 Alkaline Phosphatase 183 U/L (40-130) H 07/15/24 08:23 Total Protein 6.0 g/dL (6.6-8.7) L 07/15/24 08:23 Albumin 3.2 g/dL (3.5-5.2) L 07/15/24 08:23 Globulin 2.8 g/dL (1.3-4.6) 07/15/24 08:23 Vitamin B12 1051 pg/mL (232-1245) 07/08/24 03:33 25-OH Vitamin D Total 10 ng/mL (30-100) L 07/06/24 02:47 Folate 7.5 ng/mL (4.5-32.2) 07/09/24 04:37 Procalcitonin 0.39 ng/mL (0-0.5) 07/08/24 03:33 TSH 9.76 uIU/mL (0.27-4.20) H 07/11/24 04:44 Free T4 0.83 ng/dL (0.82-1.77) 07/11/24 04:44 Free T3 1.2 PG/ML (2.0-4.4) L 07/08/24 03:33 PTH Intact 177.1 pg/mL (15-65) H 07/06/24 02:47 Calcium (PTH Intact) 8.7 mg/dL (8.5-10.5) 07/06/24 02:47 Random Cortisol 22.67 ug/dL (2.47-19.5) H 07/06/24 02:47 ABHIJEET Screen Negative (NEGATIVE) 07/05/24 04:02 Adenovirus (PCR) Not detected (NOT DETECT) 07/16/24 20:50 C. pneumoniae DNA (PCR) Not detected (NOT DETECT) 07/16/24 20:50 Coronavirus 229E (PCR) Not detected (NOT DETECT) 07/16/24 20:50 Hep Bs Antigen Non-reactive (Nonreactive) 07/05/24 17:54 Hep Bs Antibody < 3.5 (11.5-1000) L 07/05/24 17:54 Hepatitis C Antibody Non-reactive (Nonreactive) 07/05/24 17:54 Human Metapneumovir PCR Not detected (NOT DETECT) 07/16/24 20:50 Influenza A (H1) PCR Not detected (NOT DETECT) 07/16/24 20:50 Influ A (H1/09) PCR Not detected (NOT DETECT) 07/16/24 20:50 Influenza A (H3) PCR Not detected (NOT DETECT) 07/16/24 20:50 Influenza Type A (PCR) Not detected (NOT DETECT) 07/16/24 20:50 Influenza Type B (PCR) Not detected (NOT DETECT) 07/16/24 20:50 M. 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 Heart failure he is somewhat compensated at this time. Currently he is not on any afterload reducing agents because of the symptomatic hypotension with these medications in the past. Unable to initiate GDMT due to multiorgan failure. (2) Ischemic cardiomyopathy: Patient is LV ejection fraction of 25 to 30%. Apparently the patient could not tolerate Entresto/hydralazine. 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 May continue on the current medications. Qualifiers: [place] vs. transplanted heart: [place] heart Qualified Code(s): I25.10 - Atherosclerotic heart disease of [place] coronary artery without angina pectoris (4) Hx of aortic valve replacement: Valve function appears to be appropriate. May continue on the current management. Patient is on long-term oral anticoagulation (5) Decompensated hepatic cirrhosis: Continue the current management. Patient with MIRANDA. Decided not to be a candidate for TIPS. Continue on the current measures (6) Ascites: Moderate ascites. Patient seems to be managing okay at this time. Ascites recent seems to be getting any worse Qualifiers: Ascites type: other type Qualified Code(s): R18.8 - Other ascites (7) Microcytic anemia: Hemoglobin seems to be stable. The aspirin was discontinued. He is only taking the Eliquis. (8) ICD (implantable cardioverter-defibrillator) in place: Found to be functioning okay. Continue on the current management. (9) Atrial fibrillation: Patient is mostly in the paced rhythm. Patient is on oral anticoagulation. Qualifiers: Atrial fibrillation type: permanent Qualified Code(s): I48.21 - Permanent atrial fibrillation (10) Bilateral carotid artery stenosis: Stable with no specific symptoms. (11) Acute kidney injury superimposed on CKD: On intermittent hemodialysis requiring albumin infusion and midodrine to maintain adequate blood pressure Plan Continue on the current management. Disposition as per the primary Attestations Medical Necessity Statement*: Deferred to the primary Coding Level of Care Code 80713 Diagnoses Biventricular failure I50.82 Ischemic cardiomyopathy I25.5 Atherosclerosis of [place] coronary artery of [place] heart without angina pectoris I25.10 [place] vs. transplanted heart: [place] heart Hx of aortic valve replacement Z95.2 Decompensated hepatic cirrhosis K72.90; K74.60 Other ascites R18.8 Ascites type: other type Microcytic anemia D50.9 ICD (implantable cardioverter-defibrillator) in place Z95.810 Permanent atrial fibrillation I48.21 Atrial fibrillation type: permanent Bilateral carotid artery stenosis I65.23 Acute kidney injury superimposed on CKD N17.9; N18.9
--- NOTE | 2024-07-18 13:06 | PM.TDS ---
Transfer Summary Providers Date of Admission: 07/04/24 16:35 Date of Discharge/Transfer: 08/03/24 Attending Provider at Admission: Champ Osorio MD Attending Provider at Transfer: Sixto Delacruz MD Primary Care Provider: Teo Fields MD Transfer Plans: Anticipated date of transfer: 08/03/24. Diagnoses at Discharge Discharge Diagnosis (1) Biventricular failure: Status: Acute (2) Ischemic cardiomyopathy: Status: Acute (3) Atherosclerotic heart disease of [place] coronary artery without angina pectoris: Status: Acute Qualifiers: [place] vs. transplanted heart: [place] heart Qualified Code(s): I25.10 - Atherosclerotic heart disease of [place] coronary artery without angina pectoris (4) Hx of aortic valve replacement: Status: Acute Permanent problem details: bioprosthetic, 2013 (5) Decompensated hepatic cirrhosis: Status: Acute (6) Ascites: Status: Resolved Qualifiers: Ascites type: other type Qualified Code(s): R18.8 - Other ascites (7) Microcytic anemia: Status: Resolved (8) ICD (implantable cardioverter-defibrillator) in place: Status: Acute Permanent problem details: possibly [facility] device (9) Atrial fibrillation: Status: Acute Qualifiers: Atrial fibrillation type: permanent Qualified Code(s): I48.21 - Permanent atrial fibrillation (10) Bilateral carotid artery stenosis: Status: Acute Permanent problem details: Patient had a stenting of the left ICA in April 2020 (11) Acute kidney injury superimposed on CKD: Status: Acute Reason for Visit Reason for Visit Systolic Heart Failure, Hypertension Hospital Course Hospital Course This is a 73-year-old male who is being transferred from 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, and then transferred to [facility], had a prolonged hospitalized here also at [facility], please look at records from [facility] for further detail please look at my last progress note, and admission H&P for further detail For patient's cardiogenic shock, hepatocardiorenal syndrome, ischemic cardiomyopathy, with multiorgan dysfunction requiring Levophed, ICU level care, also requiring dobutamine, Bumex drip. There was attempts on inpatient dialysis, but dialysis was complicated by low blood pressures requiring Levophed, dobutamine, but was able to have some fluid removal via dialysis. Patient and family has had multiple discussions with multiple physicians as inpatient about his overall poor prognosis, however patient wanted to remain a full code, wanted everything still to be done. Over time patient was weaned off Levophed, taken off dobutamine, switch to IV pushes of Bumex, de-escalated out of the ICU to cardiac stepdown unit. After many lengthy discussions with patient and family, patient wants to remain a full code, he understands his overall prognosis is poor, and has a high risk of morbidity and mortality, declined hospice. Patient has been accepted at select LT[facility], as patient requires close monitoring of his kidney function, diuresis, he is not a good long-term candidate for dialysis, but certainly attempts for short-term dialysis with pressors are an option to help with his fluid overload. For patient's liver failure he is not a candidate for TIPS, he does require paracentesis, which he might require for symptomatology relief. For his acute kidney injury on CKD, likely secondary to hypotension, biventricular heart failure, multiorgan dysfunction, monitor urine output, kidney function. For patient's persistent shock, he is managed on midodrine 15 mg 3 times daily. Hyponatremia, continue to monitor. History of hemoperitoneum, and anemia, his Eliquis has been held and continue to hold on discharge until hemoglobin improves. He has an ICD in place. We have had multiple discussions, below is the summary about his overall goals of care: -He tells me that it is his wish to drive [address] with his , who has retired, to look at the fall colors in [place], to put in a pool in his backyard of his house, house which he has remodeled and put a lot of time into, he still wants to live life, he understands that his condition is terminal, but he is not ready to give up, and understands the severity of his present condition, and morbidity or mortality associated with his present and future condition, and suffering associated with his present and future condition. He adamantly declines hospice. -And if he does have a complication no matter the morbidity and mortality associated, he still wants everything to be done, he wants to continue to fight, he is not ready to , he understands the morbidity and mortality about his present condition, he understands the suffering, he accepts and understands this, he understands the significance of this, but still wants to continue to fight until the end -Patient was transferred to a long-term care facility in [place] Physical Exam Const: COMMON NORMALS: no acute distress and patient oriented x3 Resp: COMMON NORMALS: normal respiratory effort, No retractions, No use of accessory muscles and clear to auscultation bilaterally AUSCULTATION: clear to auscultation bilaterally Cardio: COMMON NORMALS: regular rate, regular rhythm, S1 normal heart sound present and S2 normal heart sound present RATE: regular rate RHYTHM: regular rhythm HEART SOUNDS: S1 normal heart sound present and S2 normal heart sound present GI: COMMON NORMALS: Normal to inspection, nondistended, normoactive bowel sounds present and non-tender Extremity: NARRATIVE EXTREMITY EXAM: 2+ edema Neuro: COMMON NORMALS: patient oriented x3 Psych: COMMON NORMALS: mental status grossly normal Urinary Catheter Management: Vazquez: Cath Placed During This Visit: yes Reason for Continuing Indwelling Catheter: Acute Urinary Retention or Obstruction Urinary Catheter Date of Insertion: 07/05/24 Urinary Catheter Time of Insertion: 18:58 TS Data Studies Completed and Pending Completed Studies During Hospitalization Category Date Time Status US abdomen lmt fluid [id number] Routine Ultrasound 07/12/24 17:03 Completed US renal BI* [id number] Routine Ultrasound 07/05/24 15:59 Completed Laboratory Last Values WBC 8.06 10^3/uL (3.29-11.43) 07/18/24 04:44 RBC 2.50 10^6/uL (3.85-5.65) L 07/18/24 04:44 Hgb 8.50 g/dL (11.27-16.99) L 07/18/24 04:44 Hct 25.6 % (37-53) L 07/18/24 04:44 MCV 102.4 fl (82-101) H 07/18/24 04:44 MCH 34.0 pg (27-33) H 07/18/24 04:44 MCHC 33.2 g/dL (30-55) 07/18/24 04:44 RDW 22.5 % (12.1-15.1) H 07/18/24 04:44 Plt Count 179 10^3/cmm (157-399) 07/18/24 04:44 MPV 10.1 fL (7.4-10.4) 07/18/24 04:44 Neut % (Auto) 86.2 % 07/18/24 04:44 Lymph % (Auto) 3.7 % 07/18/24 04:44 Oliver % (Auto) 7.1 % 07/18/24 04:44 Eos % (Auto) 2.0 % 07/18/24 04:44 Baso % (Auto) 0.5 % 07/18/24 04:44 Neut # (Auto) 6.95 10^3/uL (1.8-7.7) 07/18/24 04:44 Lymph # (Auto) 0.3 10^3/uL (0.8-4.8) L 07/18/24 04:44 Oliver # (Auto) 0.6 10^3/uL (0.2-0.9) 07/18/24 04:44 Eos # (Auto) 0.2 10^3/uL (0.0-0.8) 07/18/24 04:44 Baso # (Auto) 0.0 10^3/uL (0.0-0.1) 07/18/24 04:44 Nucleated RBC % (auto) 0 % 07/18/24 04:44 Nucleated RBCs # 0.0 /100WBC 07/18/24 04:44 PT 16.60 SECONDS (12.1-14.9) H 07/06/24 02:47 INR 1.29 (0.8-1.2) H 07/06/24 02:47 Sodium 134 mmol/L (136-145) L 07/18/24 04:44 Potassium 4.4 mmol/L (3.5-5.1) 07/18/24 04:44 Chloride 94 mmol/L (98-107) L 07/18/24 04:44 Carbon Dioxide 27 mmol/L (22-29) 07/18/24 04:44 Anion Gap 17.4 (5-19) 07/18/24 04:44 BUN 80 mg/dL (8-23) H 07/18/24 04:44 Creatinine 3.1 mg/dL (0.7-1.2) H 07/18/24 04:44 GFR Calculation Not Reportable 07/18/24 04:44 Glucose 182 mg/dL (65-115) H 07/18/24 04:44 POC Glucose 190 mg/dL (70-110) H 07/16/24 16:37 Estimat Average Glucose 97 07/08/24 03:33 Hemoglobin A1c 5.0 % (4.0-6.0) 07/08/24 03:33 Calculated Osmolality 307 mOsm/kg (285-295) H 07/18/24 04:44 Lactic Acid 1.3 mmol/L (0.5-2.2) 07/10/24 04:10 Calcium 8.8 mg/dL (8.5-10.5) 07/18/24 04:44 Magnesium 2.1 mg/dL (1.7-2.3) 07/11/24 04:44 Iron 24 ug/dL (59-158) L 07/08/24 03:33 TIBC 199 mcg/dl 07/08/24 03:33 % Saturation 12.0 % (20-50) L 07/08/24 03:33 Unsat Iron Binding 175 ug/dL (112-347) 07/08/24 03:33 Total Bilirubin 0.6 mg/dL (0.15-1.2) 07/15/24 08:23 AST 19 U/L (0-40) 07/15/24 08:23 ALT 21 U/L (0-41) 07/15/24 08:23 Alkaline Phosphatase 183 U/L (40-130) H 07/15/24 08:23 Total Protein 6.0 g/dL (6.6-8.7) L 07/15/24 08:23 Albumin 3.2 g/dL (3.5-5.2) L 07/15/24 08:23 Globulin 2.8 g/dL (1.3-4.6) 07/15/24 08:23 Vitamin B12 1051 pg/mL (232-1245) 07/08/24 03:33 25-OH Vitamin D Total 10 ng/mL (30-100) L 07/06/24 02:47 Folate 7.5 ng/mL (4.5-32.2) 07/09/24 04:37 Procalcitonin 0.39 ng/mL (0-0.5) 07/08/24 03:33 TSH 9.76 uIU/mL (0.27-4.20) H 07/11/24 04:44 Free T4 0.83 ng/dL (0.82-1.77) 07/11/24 04:44 Free T3 1.2 PG/ML (2.0-4.4) L 07/08/24 03:33 PTH Intact 177.1 pg/mL (15-65) H 07/06/24 02:47 Calcium (PTH Intact) 8.7 mg/dL (8.5-10.5) 07/06/24 02:47 Random Cortisol 22.67 ug/dL (2.47-19.5) H 07/06/24 02:47 ABHIJEET Screen Negative (NEGATIVE) 07/05/24 04:02 Adenovirus (PCR) Not detected (NOT DETECT) 07/16/24 20:50 C. pneumoniae DNA (PCR) Not detected (NOT DETECT) 07/16/24 20:50 Coronavirus 229E (PCR) Not detected (NOT DETECT) 07/16/24 20:50 Hep Bs Antigen Non-reactive (Nonreactive) 07/05/24 17:54 Hep Bs Antibody < 3.5 (11.5-1000) L 07/05/24 17:54 Hepatitis C Antibody Non-reactive (Nonreactive) 07/05/24 17:54 Human Metapneumovir PCR Not detected (NOT DETECT) 07/16/24 20:50 Influenza A (H1) PCR Not detected (NOT DETECT) 07/16/24 20:50 Influ A (H1/09) PCR Not detected (NOT DETECT) 07/16/24 20:50 Influenza A (H3) PCR Not detected (NOT DETECT) 07/16/24 20:50 Influenza Type A (PCR) Not detected (NOT DETECT) 07/16/24 20:50 Influenza Type B (PCR) Not detected (NOT DETECT) 07/16/24 20:50 M. pneumoniae (PCR) Not detected (NOT DETECT) 07/16/24 20:50 Parainfluenza 1 (PCR) Not detected (NOT DETECT) 07/16/24 20:50 Parainfluenza 2 (PCR) Not detected (NOT DETECT) 07/16/24 20:50 Parainfluenza 3 (PCR) Not detected (NOT DETECT) 07/16/24 20:50 Parainfluenza 4 (PCR) Not detected (NOT DETECT) 07/16/24 20:50 RSV Type A (PCR) Not detected (NOT DETECT) 07/16/24 20:50 RSV Type B (PCR) Not detected (NOT DETECT) 07/16/24 20:50 Entero/Rhino (PCR) Not detected (NOT DETECT) 07/16/24 20:50 SARS-CoV-2 (PCR) Not detected (NOT DETECT) 07/16/24 20:50 Radiology Impressions Renal Ultrasound 07/05/24 15:59 IMPRESSION: 1. Unremarkable kidneys and bladder. 2. Moderate ascites. Abdomen Ultrasound 07/12/24 17:03 IMPRESSION: [id number] ascites. Recent Clincial Data Last Vital Signs Temp 97.8 F 07/18/24 12:00 Pulse 78 07/18/24 12:00 Resp 20 H 07/18/24 12:00 BP 106/62 07/18/24 12:00 Pulse Ox 93 07/18/24 12:00 O2 Del Method Room Air 07/18/24 12:00 O2 Flow Rate 0.5 07/08/24 09:29 Vital Signs Temp Pulse Resp BP Pulse Ox O2 Del Method 07/18/24 12:00 97.8 F 78 20 H 106/62 93 Room Air 07/18/24 09:30 72 18 97 Room Air 07/18/24 07:19 97.8 F 70 18 110/57 97 Room Air 07/18/24 05:37 70 07/18/24 04:00 98.1 F 70 20 H 114/75 94 Room Air Intake & Output/Weight 07/16/24 07/17/24 07/18/24 07/19/24 06:59 06:59 06:59 06:59 Intake Total 368 / 368 360 / 360 600 / 600 480 / 480 Output Total 450 / 450 600 / 600 540 / 540 Balance -82 / -82 -240 / -240 60 / 60 480 / 480 Weight 128 kg 129.7 kg 60.073 kg Vitals Last Vital Signs Temp 97.8 F 07/18/24 12:00 Pulse 78 07/18/24 12:00 Resp 20 H 07/18/24 12:00 BP 106/62 07/18/24 12:00 Pulse Ox 93 07/18/24 12:00 O2 Del Method Room Air 07/18/24 12:00 O2 Flow Rate 0.5 07/08/24 09:29 TS Medications Medications Acetaminophen (Acetaminophen 500 Mg Tablet) 500 mg PO Q4H PRN PRN Reason: fever Last Admin: 07/15/24 05:13 Dose: 500 mg Albuterol/Ipratropium (Ipratropium-Albuterol 3 Ml Neb) 3 ml INHALATION Q6H PRN PRN Reason: SHORTNESS OF BREATH Allopurinol (Allopurinol 100 Mg Tablet) 100 mg PO DAILY [facility] Last Admin: 07/18/24 08:18 Dose: 100 mg Apixaban (Apixaban 5 Mg Tablet) 5 mg PO BID@0800,2000 [facility] Last Admin: 07/05/24 08:53 Dose: 5 mg Calcium Carbonate (Calcium Carbonate 500 Mg Chew Tablet) 500 mg PO Q4H PRN PRN Reason: INDIGESTION Last Admin: 07/09/24 18:20 Dose: 500 mg Duloxetine HCl (Duloxetine 30 Mg Capsule) 90 mg PO DAILY [facility] Last Admin: 07/18/24 08:18 Dose: 90 mg Ergocalciferol (Ergocalciferol (Vitamin D2) 50,000 Unit Capsule) 50,000 unit PO Q7D [facility] Last Admin: 07/13/24 10:58 Dose: 50,000 unit Glucagon (Glucagon 1 Mg/Ml Kit 1 Ml) 1 mg IM ONCE PRN; Protocol PRN Reason: Adult Acute Hypoglycemia Nursing Prot. Dextrose (D5w) 500 mls @ 0 mls/hr IV ONCE PRN; Protocol PRN Reason: Adult Acute Hypoglycemia Prot Dextrose (D10w) 125 mls @ 750 mls/hr IV PRN PRN; Protocol PRN Reason: Adult Acute Hypoglycemia Nursing Protocol Dextrose (D10w) 250 mls @ 1,000 mls/hr IV PRN PRN; Protocol PRN Reason: Adult Acute Hypoglycemia Nursing Protocol Sodium Chloride (Sodium Chloride 0.9%) 1,000 mls @ 0 mls/hr IV .Q0M PRN PRN Reason: hypotension or symptomatic Albumin Human (Albumin) 12.5 gm in 50 mls @ 60 mls/hr IV PRN PRN PRN Reason: Hypotension and/or symptomatic Last Infusion: 07/11/24 15:16 Dose: Infused Levothyroxine Sodium (Levothyroxine 100 Mcg Tablet) 100 mcg PO QAM [facility] Last Admin: 07/18/24 05:52 Dose: 100 mcg Metoprolol Tartrate (Metoprolol Tartrate 25 Mg Tablet) 12.5 mg PO BID [facility] Last Admin: 07/18/24 08:18 Dose: 12.5 mg Midodrine (Midodrine 5 Mg Tablet) 15 mg PO TID [facility] Last Admin: 07/18/24 08:18 Dose: 15 mg Multivitamins (I-Fjkewin-Grwchkb C Tablet) 1 each PO DAILY [facility] Last Admin: 07/18/24 08:18 Dose: 1 each Ondansetron HCl (Ondansetron 2 Mg/Ml Sdv 2 Ml) 4 mg IVP Q6H PRN PRN Reason: NAUSEA AND VOMITING Pantoprazole Sodium (Pantoprazole Dr 40 Mg Tablet) 40 mg PO DAILY [facility] Last Admin: 07/18/24 08:18 Dose: 40 mg Senna/Docusate Sodium (Sennosides-Docusate Tablet) 1 tab PO DAILY [facility] Last Admin: 07/18/24 08:18 Dose: 1 tab Tamsulosin HCl (Tamsulosin 0.4 Mg Capsule) 0.4 mg PO QPM [facility] Last Admin: 07/17/24 17:20 Dose: 0.4 mg Discontinued Medications Albuterol/Ipratropium (Ipratropium-Albuterol 3 Ml Neb) 3 ml INHALATION Q6H PRN PRN Reason: SHORTNESS OF BREATH Aspirin (Aspirin 81 Mg Ec Tablet) 81 mg PO DAILY [facility] Last Admin: 07/15/24 09:46 Dose: 81 mg Bumetanide (Bumetanide 0.25 Mg/Ml Sdv 4 Ml) 1 mg IVP ONCE ONE Stop: 07/16/24 09:37 Last Admin: 07/16/24 09:45 Dose: 1 mg Bumetanide (Bumetanide 0.25 Mg/Ml Sdv 4 Ml) 1 mg IVP ONCE ONE Stop: 07/17/24 12:51 Last Admin: 07/17/24 16:05 Dose: 1 mg Ceftriaxone Sodium (Ceftriaxone 2,000 Mg Sdv) 2,000 mg IVP Q24H [facility] Last Admin: 07/08/24 08:48 Dose: 2,000 mg Duloxetine HCl (Duloxetine 60 Mg Capsule) 60 mg PO DAILY [facility] Last Admin: 07/12/24 08:58 Dose: 60 mg Furosemide (Furosemide 10 Mg/Ml Sdv 10ml) 60 mg IVP ONCE ONE Stop: 07/15/24 11:20 Last Admin: 07/15/24 12:40 Dose: 60 mg Furosemide (Furosemide 10 Mg/Ml Sdv 10ml) 80 mg IVP ONCE ONE Stop: 07/18/24 06:01 Last Admin: 07/18/24 05:52 Dose: 80 mg Glucagon (Glucagon 1 Mg/Ml Kit 1 Ml) 1 mg IM ONCE PRN; Protocol PRN Reason: Adult Acute Hypoglycemia Nursing Prot. Haloperidol Lactate (Haloperidol Inj 5 Mg/Ml Inj 1 Ml) 2 mg IM NOW ONE Stop: 07/06/24 16:11 Last Admin: 07/06/24 16:16 Dose: 2 mg Heparin Sodium (Porcine) (Heparin, Porcine 1,000 Unit/Ml Inj 10 Ml) 10,000 unit INTRACATH ONCE ONE Stop: 07/11/24 07:03 Last Admin: 07/12/24 19:15 Dose: Not Given Heparin Sodium (Porcine) (Heparin, Porcine 1,000 Unit/Ml Inj 10 Ml) 1,000 unit IV ONCE ONE Stop: 07/11/24 07:03 Last Admin: 07/12/24 19:15 Dose: Not Given Dobutamine HCl/Dextrose (Dobutamine Drip) 500 mg in 250 mls @ 0 mls/hr IV .Q0M [facility]; Protocol Last Titration: 07/08/24 10:21 Dose: Infused Bumetanide 25 mg/ N/A 100 mls @ 8 mls/hr IV .[id number] [facility] Last Infusion: 07/05/24 05:22 Dose: Infused Dextrose (D5w) 500 mls @ 0 mls/hr IV ONCE PRN; Protocol PRN Reason: Adult Acute Hypoglycemia Prot Dextrose (D10w) 125 mls @ 750 mls/hr IV PRN PRN; Protocol PRN Reason: Adult Acute Hypoglycemia Nursing Protocol Last Infusion: 07/07/24 23:19 Dose: Infused Dextrose (D10w) 250 mls @ 1,000 mls/hr IV PRN PRN; Protocol PRN Reason: Adult Acute Hypoglycemia Nursing Protocol Last Infusion: 07/07/24 06:40 Dose: Infused Sodium Chloride (Sodium Chloride 0.9%) 50 mls @ 50 mls/hr IV ONCE ONE Stop: 07/05/24 16:32 Last Admin: 07/05/24 19:47 Dose: Not Given Albumin Human (Albumin) 12.5 gm in 250 mls @ 300 mls/hr IV ONCE ONE Stop: 07/05/24 16:49 Last Infusion: 07/05/24 18:40 Dose: Infused Sodium Chloride (Sodium Chloride 0.9%) 250 mls @ 250 mls/hr IV ONCE ONE Stop: 07/05/24 16:41 Last Infusion: 07/05/24 19:48 Dose: Infused Norepinephrine Bitartrate (Levophed) 4 mg in 250 mls @ 0 mls/hr IV .Q0M BRYANT; Protocol Last Titration: 07/09/24 10:01 Dose: Infused Norepinephrine Bitartrate (Levophed) Confirm Administered Dose 4 mg in 250 mls @ as directed .ROUTE .ST-MED ONE Stop: 07/05/24 18:33 Last Infusion: 07/06/24 03:42 Dose: Infused Sterile Water (Water) Confirm Administered Dose 20 mls @ as directed .ROUTE .ST-MED ONE Stop: 07/06/24 08:26 Last Infusion: 07/06/24 09:48 Dose: Infused Sterile Water (Water) Confirm Administered Dose 10 mls @ as directed .ROUTE .STK-MED ONE Stop: 07/07/24 08:34 Last Infusion: 07/07/24 11:00 Dose: Infused Albumin Human (Albumin) 12.5 gm in 50 mls @ 60 mls/hr IV PRN PRN PRN Reason: Hypotension and/or symptomatic Dextrose (D5w) 1,000 mls @ 30 mls/hr IV .Q24H BRYANT Last Infusion: 07/07/24 23:19 Dose: Infused Dextrose (D10w) 1,000 mls @ 75 mls/hr IV .[id number] BRYANT Last Infusion: 07/08/24 18:40 Dose: Infused Bumetanide 25 mg/ N/A 100 mls @ 4 mls/hr IV .Q24H BRYANT Last Infusion: 07/10/24 09:10 Dose: Infused Dobutamine HCl/Dextrose (Dobutamine Drip) 500 mg in 250 mls @ 0 mls/hr IV .Q0M [facility]; Protocol Last Titration: 07/10/24 09:11 Dose: Infused Insulin Human Lispro (Insulin Lispro 100 Unit/1 Ml) 0 unit SUBCUT TIDWM [facility]; Protocol Last Admin: 07/07/24 12:22 Dose: Not Given Levothyroxine Sodium (Levothyroxine 25 Mcg Tablet) 25 mcg PO DAILY [facility] Last Admin: 07/08/24 08:48 Dose: 25 mcg Levothyroxine Sodium (Levothyroxine 100 Mcg Sdv) 50 mcg IVP DAILY [facility] Last Admin: 07/12/24 11:14 Dose: 50 mcg Methylprednisolone Sodium Succinate (Methylprednisolone Sod Succ 40 Mg/Ml Inj) 40 mg IVP Q12H [facility] Last Admin: 07/09/24 11:19 Dose: 40 mg Methylprednisolone Sodium Succinate (Methylprednisolone Sod Succ 40 Mg/Ml Inj) 40 mg IVP DAILY [facility] Last Admin: 07/10/24 09:12 Dose: 40 mg Metolazone (Metolazone 5 Mg Tablet) 5 mg PO ONCE ONE Stop: 07/16/24 09:37 Last Admin: 07/16/24 09:46 Dose: 5 mg Midodrine (Midodrine 5 Mg Tablet) 10 mg PO TID [facility] Last Admin: 07/12/24 08:57 Dose: 10 mg Morphine Sulfate (Morphine Ir 15 Mg Tablet) 15 mg PO Q6H PRN PRN Reason: MODERATE PAIN Last Admin: 07/06/24 04:39 Dose: 15 mg Morphine Sulfate (Morphine 4 Mg/Ml Sdv 1 Ml) 2 mg IVP Q4H PRN PRN Reason: SEVERE PAIN Last Admin: 07/06/24 20:34 Dose: 2 mg Potassium Chloride (Potassium Chloride Er 20 Meq Tablet) 40 meq PO Q12H [facility] Last Admin: 07/07/24 05:22 Dose: Not Given Allergies No Known Allergies Allergy (Verified 04/11/24 13:50) Home Medications allopurinol 100 mg tablet 100 mg PO DAILY #90 tabs 08/02/22 [Rx Confirmed 07/05/24] duloxetine 60 mg capsule,delayed release 60 mg PO DAILY #90 caps 08/02/22 [Rx Confirmed 07/05/24] tramadol 37.5 mg-acetaminophen 325 mg tablet 1 tab PO BID PRN Pain #60 tabs 08/02/22 [Rx Confirmed 07/05/24] pantoprazole 40 mg tablet,delayed release 40 mg PO DAILY 04/11/24 [History Confirmed 07/05/24] apixaban 5 mg tablet (Eliquis) See Rx Instructions .Route .COMPLEX #180 tabs 05/13/24 [Rx Confirmed 07/05/24] aspirin 81 mg tablet,delayed release 81 mg PO DAILY 06/07/24 [History Confirmed 07/05/24] bumetanide 1 mg tablet 2 mg PO BID 06/07/24 [History Confirmed 07/05/24] hydralazine 10 mg tablet 10 mg PO BID 06/07/24 [History Confirmed 07/05/24] isosorbide dinitrate 10 mg tablet 10 mg PO TID 06/07/24 [History Confirmed 07/05/24] levothyroxine 25 mcg tablet 25 mcg PO DAILY 06/07/24 [History Confirmed 07/05/24] spironolactone 50 mg tablet 50 mg PO BID 07/05/24 [History Confirmed 07/05/24] tamsulosin 0.4 mg capsule 0.4 mg PO QPM 07/05/24 [History Confirmed 07/05/24] Discharge Plan Discharge Patient Disposition: er [facility] Condition: Stable Prescriptions: New midodrine 5 mg Tablet 15 mg PO TID 30 Days Qty: 270 0RF Levoxyl 100 mcg Tablet 100 mcg PO QAM 30 Days Qty: 30 0RF Vitamin D2 1,250 mcg (50,000 unit) Capsule 50,000 unit PO Q7D 30 Days Qty: 4 0RF metoprolol tartrate 25 mg Tablet 12.5 mg PO BID 30 Days Qty: 30 0RF duloxetine 30 mg Capsule,Delayed Release(Dr/Ec) 90 mg PO DAILY 90 Days Qty: 90 0RF bumetanide 1 mg tablet 1 mg PO BID 30 Days Qty: 60 0RF Klor-Con 10 10 mEq tablet extended release 10 meq PO BID 30 Days Qty: 60 0RF Continued allopurinol 100 mg tablet 100 mg PO DAILY Qty: 90 3RF pantoprazole 40 mg tablet,delayed release (DR/EC) 40 mg PO DAILY tramadol-acetaminophen 37.5-325 mg tablet 1 tab PO BID PRN (Reason: Pain) Qty: 60 5RF tamsulosin 0.4 mg capsule 0.4 mg PO QPM Held Eliquis 5 mg tablet See Rx Instructions .ROUTE .COMPLEX Qty: 180 3RF Hold Instructions: Resume on 07/25/24. Dose Instruction: Take 1 tablet by mouth twice daily at 8am and 8pm. Rx Instructions: Take 1 tablet by mouth twice daily at 8am and 8pm. Discontinued duloxetine 60 mg capsule,delayed release(DR/EC) 60 mg PO DAILY Qty: 90 3RF isosorbide dinitrate 10 mg tablet 10 mg PO TID hydralazine 10 mg tablet 10 mg PO BID aspirin [Aspir-81] 81 mg Tablet,Delayed Release (Dr/Ec) 81 mg PO DAILY levothyroxine 25 mcg tablet 25 mcg PO DAILY bumetanide 1 mg tablet 2 mg PO BID spironolactone 50 mg tablet 50 mg PO BID Discharge Orders: Discharge Order (Routine); Ordered 07/18/24 Ordered By: Sixto Delacruz Other Ambulatory Orders: DME: Miscellaneous (Order) Location: None Selected Ordered By: John Garcia DME: Commode (Order) Location: None Selected Ordered By: John Garcia DME: Miscellaneous (Order) Location: None Selected Ordered By: John Garcia DME: Wheelchair (Order) Location: None Selected Ordered By: John Garcia Referrals: [facility] [Outside] Rosie Horton MD [Referring] - 4-7 days (Can also call [phone]. ) Teo Fields MD [Primary Care Provider] - 1-3 days Sascha Londono MD [Physician] - 4-7 days Discharge Diet: Cardiac Discharge Activity: Resume usual activity and Increase activity as tolerated Patient Instructions: Dialysis Diet (DC), Hemodialysis (DC) Activity Restrictions/Additional Instructions: Restrict fluid intake to less than 1500 cc, salt intake to less than 2 g daily. Advised to check his weight daily at home. Transfer Attestations Time Spent in Transfer Care: greater than 30 min Status at Transfer: Cognitive status at transfer: cognitively intact; Behavioral status at transfer: cooperative; Quality Metrics Clinical Quality Measures [ No reported AMI, CVA or VTE this stay] Coding Level of Care Code 56661 Total time (in minutes) for Discharge: 45 Diagnoses Biventricular failure I50.82 Ischemic cardiomyopathy I25.5 Atherosclerosis of [place] coronary artery of [place] heart without angina pectoris I25.10 [place] vs. transplanted heart: [place] heart Hx of aortic valve replacement Z95.2 Decompensated hepatic cirrhosis K72.90; K74.60 Other ascites R18.8 Ascites type: other type Microcytic anemia D50.9 ICD (implantable cardioverter-defibrillator) in place Z95.810 Permanent atrial fibrillation I48.21 Atrial fibrillation type: permanent Bilateral carotid artery stenosis I65.23 Acute kidney injury superimposed on CKD N17.9; N18.9
[2024-07-18] MEDS: cefdinir 300 MG CAPSULE PO (14:13)
[2024-07-18] MEDS: acetaminophen 500 mg Tablet PO (15:06)
--- NOTE | 2024-07-18 16:56 | PC.NURSE ---
Patient transferred to [facility] in [place], [place]. Spouse at bedside. Patient taken by ambulance. [facility] notified of patient departure.
== END 2024-07-18 16:57 | DRG 432 ==
LOC: ICU 07-08 10:32 → CSU 07-10 15:36
PROVIDERS: Internal Medicine; Internal Medicine Nephrology; Student in an Organized Health Care Education/Training Program; Admitting Provider Internal Medicine; PCP Internal Medicine; Visit Provider Family Medicine
DX: K74.60 Unspecified cirrhosis of liver (principal); K66.1 Hemoperitoneum; N18.6 End stage renal disease; R57.0 Cardiogenic shock; I13.2 Hypertensive heart and chronic kidney disease with heart failure and with stage 5 chronic kidney disease, or end stage renal disease; I48.21 Permanent atrial fibrillation; G93.40 Encephalopathy, unspecified; E87.1 Hypo-osmolality and hyponatremia; N17.9 Acute kidney failure, unspecified; R18.8 Other ascites; I50.22 Chronic systolic (congestive) heart failure; E11.22 Type 2 diabetes mellitus with diabetic chronic kidney disease; I50.84 End stage heart failure; Z99.2 Dependence on renal dialysis; Z11.52 Encounter for screening for COVID-19; I25.5 Ischemic cardiomyopathy; I25.10 Atherosclerotic heart disease of native coronary artery without angina pectoris; Z95.1 Presence of aortocoronary bypass graft; Z95.3 Presence of xenogenic heart valve; Z79.01 Long term (current) use of anticoagulants; Z79.82 Long term (current) use of aspirin; M10.9 Gout, unspecified; Z86.73 Personal history of transient ischemic attack (TIA), and cerebral infarction without residual deficits; E78.5 Hyperlipidemia, unspecified; Z95.810 Presence of automatic (implantable) cardiac defibrillator; Z87.891 Personal history of nicotine dependence; Z75.1 Person awaiting admission to adequate facility elsewhere; E03.9 Hypothyroidism, unspecified; Z66 Do not resuscitate; D63.1 Anemia in chronic kidney disease; I27.20 Pulmonary hypertension, unspecified; K75.81 Nonalcoholic steatohepatitis (NASH); I95.9 Hypotension, unspecified
CPT/HCPCS: 36415; 36416; 36592; 51702; 76705; 76770; 80048; 80053; 82306; 82310; 82533; 82607; 82746; 82962; 83036; 83540; 83550; 83605; 83735; 83970; 84145; 84439; 84443; 84481; 85025; 85610; 86038; 86706; 86803; 87340; 87486; 87581; 87633; 90935; 96372; 96374; 96376; 97110; 97116; 97162; 97167; 97530; J0696; J1250; J1630; J1815; J1940; J2270; J2919; J3490; J7050; J7070; J7799; P9045; P9047; Q3014